=== PATIENT | male | born 1985 | race Two or more races ===

== ENCOUNTER 2024-03-28 19:13 | Emergency (ER) | payer MEDICAID, SELFPAY ==
[2024-03-28 19:19] VITALS: PULSE 90; RESP 18; O2SAT 99; BMI 21.9
--- NOTE | 2024-03-28 19:48 | XR_ITS ---
Examination: CT brain head without contrast. 2-D sagittal coronal reconstructions Date and time of exam:March 28, 2024 1958 hrs. Indications: Ground-level fall today with injury to the head, head pain CTDI: vol (mGy):48.2 DLP: (mGycm):943 Technique: Multiple CT axial sections of the brain have been obtained, 5 mm slice thickness. Contrast has not been administered. 2-D sagittal, coronal reconstructions have been obtained Low dose protocols were performed. One or more of the following dose reduction techniques were used; automated exposure control, adjustment of the mA and/or KV according to patient size, use of iterative reconstruction technique. Findings: No significant ventricular enlargement. Intra-axial or extra-axial hemorrhage density is not seen. No mass effect or midline shift Basal cisterns are not remarkable. Fourth ventricle is midline. Cranial vault intact. Impression: Negative for acute hemorrhage, mass effect or midline shift
--- NOTE | 2024-03-28 19:48 | XR_ITS ---
Examination: CT maxillofacial, without intravenous contrast. 2-D sagittal reconstructions. 3-D reconstructions. Date and time of exam:March 28, 20242000 hrs. Indications: Seizure today, ground-level fall with injury to the face, facial pain CTDI: vol (mGy):18.2 DLP: (mGycm):421 Technique: Multiple axial images of maxillofacial region, 3.0 mm slice thickness. 2-D sagittal and coronal reconstructions. 3-D reconstructions. Low dose protocols were performed. One or more of the following dose reduction techniques were used; automated exposure control, adjustment of the mA and/or KV according to patient size, use of iterative reconstruction technique. Findings: Frontal bone intact Orbital rims intact No nasal bone fracture No depression zygomatic arches Maxilla intact Acute fracture anterior right body the mandible axial image 39 Mandibular condyles are intact Impression: Acute fracture anterior right body of the mandible without significant displacement.
--- NOTE | 2024-03-28 19:48 | XR_ITS ---
Examination: CT cervical spine without contrast 2-D sagittal reconstructions 2-D coronal reconstructions 3-D reconstructions. Exam date and time:March 28, 20242007 hrs. Indications: Seizure today, patient fell with injury to the neck, neck pain CTDI:vol (mGy) 12.26 DLP: (mGycm) 326 Technique: Multiple 2 mm axial sections of the cervical spine have been obtained. The coronal and sagittal reconstructions have been obtained. 3-D reconstructions have been obtained. Low dose protocols were performed. One or more of the following dose reduction techniques were used; automated exposure control, adjustment of the mA and/or KV according to patient size, use of iterative reconstruction technique. Findings: Axial sections demonstrate intact base of the skull. C1 exhibit satisfactory relationship to the odontoid. No acute cervical vertebral body fracture seen. Alignment posterior spinous processes satisfactory. Impression: No acute cervical fracture.
[2024-03-28 19:53] VITALS: BP 120/86; PULSE 88; RESP 18; TEMP 36.9; O2SAT 99
--- NOTE | 2024-03-28 21:45 | PC.NURSE ---
pt was seen walking out of the main ed doors.
--- NOTE | 2024-03-28 21:47 | PC.NURSE ---
pt was seen walking out the main ed doors
--- NOTE | 2024-03-28 22:15 | PC.NURSE ---
no answer at er lobby or outside er to be re evaluated.
--- NOTE | 2024-03-29 01:35 | PD.EDADDENDU ---
Emergency Room Addendum Addendum Narrative: This section includes all my notes and documentations, including HPI, PE, and ED course. Boston Lara MD HPI: 38-year-old male here to be evaluated after falling yesterday. Landed on his head. Reports passing out. Was told he had seizure. Currently, he reports no headache or dizziness. No neck pain or back pain. No chest pain or abdominal pain. No pain in the arms or legs. No other complaints. ROS: Musculoskeletal: negative except as documented in HPI. Skin: negative except as documented in HPI. Neurological: negative except as documented in HPI. Physical Exam: General: Alert and oriented. No acute distress. Eyes: Conjunctivae and lids clear. EOMI. PERRL. ENT: No nasal congestion. Neck: Supple. No tenderness. Heart: RRR. Lungs: No respiratory distress. Good air movement. No rhonchi, wheezing, rales. Chest: No tenderness. Abdomen: Soft and nontender. Back: No tenderness. Skin: Warm and dry. On his left forehead, there is a 1 cm linear skin abrasion. Neuro: Alert and oriented X 3. Cranial Nerves II-XII grossly intact. No peripheral motor deficits. Musculoskeletal: All major joints and bones are not tender with no limited ROM. I ordered head and facial and cervical spine CT scans. Later, I was told he eloped. Boston Lara MD
== END 2024-03-28 22:17 | disposition left against medical advice (07) ==
PROVIDERS: Emergency Provider Emergency Medicine; PCP Family Medicine
DX: S00.81XA Abrasion of other part of head, initial encounter (principal); S09.90XA Unspecified injury of head, initial encounter; S19.9XXA Unspecified injury of neck, initial encounter; W18.30XA Fall on same level, unspecified, initial encounter; Z53.29 Procedure and treatment not carried out because of patient's decision for other reasons
CPT/HCPCS: 70450; 70486; 72125; 99281

== ENCOUNTER 2024-04-30 19:52 | Emergency (ER) | payer MEDICAID, SELFPAY ==
[2024-04-30 19:52] VITALS: BMI 20.3
[2024-04-30 20:38] VITALS: BP 160/97; PULSE 88; RESP 18; TEMP 36.7; O2SAT 100
--- NOTE | 2024-04-30 21:31 | XR_ITS ---
Examination: CT abdomen and pelvis without contrast. Coronal 3-D reconstructions. Sagittal 2-D reconstructions. Date and time of exam:April 30, 2024 2134 hrs. Comparison February 19, 2024 Indications: Lower abdominal pain beginning today 12 hours ago CTDI: vol (mGy): 4.89 DLP: (mGycm): 233 Technique: Axial images of the abdomen have been obtained, 3 mm slice thickness Intravenous contrast material has not been administered. Low dose protocols were performed. One or more of the following dose reduction techniques were used; automated exposure control, adjustment of the mA and/or KV according to patient size, use of iterative reconstruction technique. Findings: No focal liver or splenic lesions No gallstones No pancreatic or adrenal mass No renal or ureteral calculi, no hydronephrosis Aorta normal size No bowel obstruction Normal appendix No diverticulitis Urinary bladder wall thickening up to 11 mm No prostatomegaly Impression: No renal or ureteral calculi, no hydronephrosis Normal appendix No bowel obstruction diverticulitis or free air. Mild urinary bladder wall thickening, consider cystitis
--- NOTE | 2024-04-30 21:32 | EDRME_ITS ---
Rapid Medical Screening Exam [facility] Arrival date/time: 04/30/24 19:52 38M with history of psych/drug use presents to ED with lower ab/pelvic pain and lower leg muscle cramping. Chief Complaint: General Adult/Misc Complain Vital signs: Vital Signs Temperature 98.1 F 04/30/24 20:38 Pulse Rate 88 04/30/24 20:38 Respiratory Rate 18 04/30/24 20:38 Blood Pressure 160/97 H 04/30/24 20:38 Pulse Oximetry (%) 100 04/30/24 20:38 Oxygen Delivery Method Room Air 04/30/24 20:38
[2024-04-30 21:49] LABS: Collection Type, Urine Clean Catch; RBC,Urine 0 /hpf (0-3); Squamous Epithelial Cell,Urine 0 /hpf (0-5)
[2024-04-30 21:59] LABS: Bilirubin,Urine Negative (Negative); Blood,Urine Negative (Negative); Clarity,Urine Clear (Clear/Hazy); Color,Urine Lt-Yellow (Lt Yel-Yel); Culture Indicated,Urine Not Indicated; Glucose, Urine Negative (Negative); Ketones,Urine Negative (Negative); Leukocyte Esterase,Urine Negative (Negative); Nitrite,Urine Negative (Negative); Protein,Urine Negative (Neg - Trace); Specific Gravity,Urine 1.008 (1.001-1.035); Urobilinogen,Urine Negative mg/dL (0.0-1.0); WBC,Urine 2 /hpf (0-5)
[2024-04-30 23:04] LABS: Alanine Aminotransferase 11 U/L (10-49); Albumin/Globulin Ratio 1.9 (1.2-2.2); Alkaline Phosphatase 88 U/L (46-116); Anion Gap 8 (7-16); Aspartate Amino Transferase 22 U/L (0-34); BUN/Creatinine Ratio 10 Ratio (12-20); Bilirubin,Total 0.7 mg/dL (0.3-1.2); Blood Urea Nitrogen 14 mg/dL (9-23); Calcium 10.6 mg/dL (8.3-10.6); Calcium (Corrected) 10.6 mg/dL (8.5-10.1); Carbon Dioxide 28.6 mMol/L (20.0-31.0); Chloride 100 mMol/L (98-107); Creatinine (Component) 1.4 mg/dL (0.6-1.3); Estimated Creatinine Clearance 60.8 mL/min (>60); Globulin 2.7 gm/dL (2.3-3.5); Glucose 50 mg/dL (74-106); Magnesium 2.4 mg/dL (1.6-2.6); Osmolality,Calculated 271 (275-295); Potassium 4.2 mMol/L (3.4-5.1); Sodium 137 mMol/L (136-145); Total Protein 7.7 gm/dL (5.7-8.2); eGFR > 60 See Note
[2024-04-30 23:06] LABS: Basophils % (Auto) 0 % (0-2.5); Eosinophils # (Auto) 0.1 Thou/mm3 (0.0-0.5); Eosinophils % (Auto) 1 % (0-10); Hematocrit 44.5 % (41.0-53.0); Hemoglobin 15.4 g/dL (13.5-16.0); Immature Granulocytes % (Auto) 0 % (0-0); Immature Granulocytes Auto 0.03 Thou/mm3 (0.00-0.00); Lymphocytes # (Auto) 2.8 Thou/mm3 (1.0-4.8); Lymphocytes % (Auto) 23 % (10-50); Mean Corpuscular HGB Conc 34.6 g/dl (31.0-37.0); Mean Corpuscular Hemoglobin 30.9 pg (25.0-35.0); Mean Corpuscular Volume 89 fL (80-100); Monocytes # (Auto) 1.2 Thou/mm3 (0.0-0.8); Monocytes % (Auto) 10 % (0-12); Neutrophils % (Auto) 66 % (37-80); Nucleated Red Blood Cell % 0 /100 WBC (0); Platelet Count 356 Thou/mm3 (140-440); RDW Standard Deviation 41.4 fL (35.1-43.9); Red Blood Count 4.98 Miln/mm3 (4.50-5.90); White Blood Count 12.2 Thou/mm3 (3.8-10.6)
--- NOTE | 2024-04-30 23:17 | PC.NURSE ---
juice and sandwhich provided to brittni for blood sugar of 50. pt asymptomatic and has no complaints
--- NOTE | 2024-05-01 02:33 | PD.EDADULT ---
ED General RME/HPI General Chief complaint: General Adult/Misc Complain Stated complaint: ABD PAIN,LEG CRAMPING Arrival date/time: 04/30/24 19:52 RME / HPI RME / HPI narrative: 04/30/24 19:52 38M with history of psych/drug use presents to ED with lower ab/pelvic pain and lower leg muscle cramping. ----- Dr. Portillo?s Main ED Evaluation: 38yo male presents to the ED for complaints of lower abdominal pain and BLE cramping x yesterday morning. Patient states he started having lower abdominal pain, lower back pain, and BLE cramping yesterday while he was at work. He states his pain worsens when he walks. Patient denies any dysuria, penile discharge or any other associated symptoms. Patient is not sexually active. No known allergies. PCP: [facility] Related Data Previous Rx's ?Medication ?Instructions ?Recorded cetirizine 5 mg-pseudoephedrine ER 1 tab PO BID PRN sinus symptoms 08/30/21 120 mg tablet,extended #14 tabs release,12hr (Zyrtec-D) diphenhydramine HCl 25 mg capsule 25 mg PO Q8H PRN allergic symptoms 09/23/22 (Benadryl) #30 caps ibuprofen 600 mg tablet 600 mg PO QID PRN pain #20 tabs 09/23/22 ciprofloxacin HCl 500 mg tablet 500 mg PO BID #14 tabs 11/29/22 (Cipro) dicyclomine 20 mg tablet 20 mg PO BID #20 tabs 11/29/22 metronidazole 500 mg tablet 500 mg PO BID #14 tabs 11/29/22 cyclobenzaprine 7.5 mg tablet 7.5 mg PO TID PRN muscle spasm #30 12/03/22 tabs hydrocodone 5 mg-acetaminophen 325 1 tab PO BID PRN pain #14 tabs 01/16/23 mg tablet hydroxyzine HCl 50 mg tablet 50 mg PO Q6H PRN anxiety #20 tabs 01/18/24 amoxicillin 875 mg-potassium 1 tab PO BID #14 tabs 02/07/24 clavulanate 125 mg tablet acetaminophen 325 mg tablet 650 mg (2 x 325 mg) PO TID PRN 02/11/24 pain #30 tabs ibuprofen 600 mg tablet 600 mg PO Q8H PRN pain #30 tabs 02/11/24 ibuprofen 600 mg tablet 600 mg PO Q8H PRN pain #14 tabs 02/15/24 lidocaine 5 % topical patch 2 patch topical QDAY PRN pain #30 02/15/24 (Lidoderm) ea Allergies Allergy/AdvReac Type Severity Reaction Status Date / Time No Known Allergies Allergy Verified 04/30/24 19:54 Review of Systems Review of Systems Systems Reviewed: All systems reviewed, normal except as documented Narrative Review of Systems: Gen: No fever, no chills, no weight loss EYES: No discharge, no visual changes, no pain HEENT: No ear pain, no congestion, no sore throat PULM: No shortness of breath, no cough, no congestion CV: No chest pain, no dyspnea on exertion, no palpitations GI: No nausea, no vomiting, no diarrhea, + pain, no constipation : No frequency, no urgency, no dysuria Musc/skel: No joint pain, + back pain, + BLE pain Skin: No rash. Warm and dry. Psyc: No hallucinations, no depression Heme/Lymph: No easy bleeding or bruising tendencies Neuro: No weakness, no headache Past Medical History Past Medical History NEUROLOGIC: Negative Neurological Disorders or Seizures CARDIAC: Negative Cardiac Disorders or Congestive Heart Failure RESPIRATORY: Negative Chronic Obstructive Pulmonary Disease (COPD) or Asthma GASTROINTESTINAL: Negative Gastrointestinal Disorders GENITOURINARY: Positive Genitourinary Disorders; Negative Renal Disease MUSCULOSKELETAL: Negative Musculoskeletal Disorders ENDOCRINE: Negative Endocrine Disorders, Diabetes Mellitus Type 1 or Diabetes Mellitus Type 2 HEMATOLOGIC: Negative Blood Disorders or Sickle Cell Disease OTHER HISTORY: Positive Chicken Pox; Negative Hospitalization, Blood Transfusions, Blood Transfusion Reaction, Anesthesia Reactions or Cancer Social History SMOKING STATUS: Current some day smoker SUBSTANCE USE: methamphetamine ED Exam Narrative Physical exam: GENERAL APPEARANCE: alert and oriented x 4, well-developed, well-nourished, no acute distress VITALS: All vitals were reviewed and the pulse ox is 100% on room air, which is normal according to my interpretation. HEENT: normocephalic, atraumatic NECK: supple LUNGS: no respiratory distress, normal effort HEART: good peripheral perfusion ABDOMEN: non distended EXTREMITIES: atraumatic NEUROLOGIC: awake; alert and oriented x4; cranial nerves II-XII grossly intact PSYCHIATRIC: appropriate mood and affect SKIN: warm, dry, normal color; no rashes Course Quality Measures none Orders Category Date Time Status Fingerstick [Bedside Blood Glucose] NOW Care 04/30/24 23:[address] abdomen pelvis wo con Stat Exams 04/30/24 21:31 Completed CBC Stat Lab 04/30/24 21:43 Completed CMP [Comprehensive Metabolic Panel] Stat Lab 04/30/24 21:43 Completed Mag [Magnesium] Stat Lab 04/30/24 21:43 Completed Urinalysis, C/S if Indicated Stat Lab 04/30/24 21:44 Completed Acetaminophen Tab [Tylenol ES Tab] Med 05/01/24 02:36 Discontinued 1,000 mg PO X1 ONE Ibuprofen Tab [Motrin Tab] Med 05/01/24 02:36 Discontinued 600 mg PO X1 ONE Vital Signs Vital signs: Vital Signs Temperature 98.1 F 04/30/24 20:38 Pulse Rate 88 04/30/24 20:38 Respiratory Rate 18 04/30/24 20:38 Blood Pressure 160/97 H 04/30/24 20:38 Pulse Oximetry (%) 100 04/30/24 20:38 Oxygen Delivery Method Room Air 04/30/24 20:38 [facility] Patient data External records reviewed:: [facility] previous records (Per chart review, patient was seen here on 03/29/24 for syncope.) Clinical information provided by:: patient Social determinants that could affect healthcare access:: none Patient has the following chronic illnesses:: none How is presenting disease/condition affected by chronic disease/condition?: no chronic disease Evaluation data The following diagnostics were reviewed and interpreted by me:: lab results and radiology exam(s) Lab and/or radiology exams considered but not ordered:: none Interpretation Summary: WBC count is elevated at 12.2, Initial Glucose is 50, UA is unremarkable, according to my interpretation. ----- [place] [facility] Report Signed Patient: DAIANA MEDINA [facility]. Record#: [id number] Birthdate: 1985 Age/Sex: 38 / M Location: [facility] Attending Dr: Ordering Physician: Tim Espinoza PA-C Date of Service: 04/30/24 Procedure(s): CT abdomen pelvis wo con Accession Number(s): [id number] cc: Michael Rudolph MD; Shad Burt MD; Espinoza,Tim PA-C~ Examination: CT abdomen and pelvis without contrast. Coronal 3-D reconstructions. Sagittal 2-D reconstructions. Date and time of exam:April 30, 2024 2134 hrs. Comparison February 19, 2024 Indications: Lower abdominal pain beginning today 12 hours ago CTDI: vol (mGy): 4.89 DLP: (mGycm): 233 Technique: Axial images of the abdomen have been obtained, 3 mm slice thickness Intravenous contrast material has not been administered. Low dose protocols were performed. One or more of the following dose reduction techniques were used; automated exposure control, adjustment of the mA and/or KV according to patient size, use of iterative reconstruction technique. Findings: No focal liver or splenic lesions No gallstones No pancreatic or adrenal mass No renal or ureteral calculi, no hydronephrosis Aorta normal size No bowel obstruction Normal appendix No diverticulitis Urinary bladder wall thickening up to 11 mm No prostatomegaly Impression: No renal or ureteral calculi, no hydronephrosis Normal appendix No bowel obstruction diverticulitis or free air. Mild urinary bladder wall thickening, consider cystitis Dictated By: Shad Burt MD Signed By: <Electronically signed by Shad Burt MD in [place]> 04/30/24 2249 Medications Medications considered but not ordered:: none Medication administrations:: Medication Administration History Discontinued Medications Acetaminophen (Acetaminophen 500 Mg Tablet) 1,000 mg PO X1 ONE Stop: 05/01/24 02:37 Last Admin: 05/01/24 02:45 Dose: 1,000 mg Documented By: CVL Ibuprofen (Ibuprofen Tab 600 Mg Tablet) 600 mg PO X1 ONE Stop: 05/01/24 02:37 Last Admin: 05/01/24 02:45 Dose: 600 mg Documented By: CVL see above Consultations Consultation(s) initiated? (list below): No Diagnosis Differential Diagnosis ED Complaint MDM: cramps, dehydration, electrolyte abnormality, myalgias Most likely diagnosis given after review of the tests above:: see below Admission Indicated Admission indicated?: not indicated Explain why admission is indicated or not indicated:: Admission criteria not met. Admission Request Was there a request for admission?: No Disposition Plan Disposition Plan: Discharge Discharge Attestation Discharge Attestation: The patient and all family members were given an opportunity to ask questions and understood the discharge instructions. Discharge instructions specifically effects, indications for sooner follow up or return to the emergency department, and the expected course of current diagnosis. Patient condition: Stable Medical Decision Making MDM Narrative MDM Narrative: Scribe Attestation: 05/01/24 Tyra Segovia am scribing for and in the presence of Dr. Portillo. Differential Diagnosis Differential Diagnosis: cramps, dehydration, electrolyte abnormality, myalgias Lab Data 04/30/24 21:43 04/30/24 21:43 Labs: Lab Results 04/30/24 04/30/24 Range/Units 21:43 21:44 WBC 12.2 H (3.8-10.6) Thou/mm3 RBC 4.98 (4.50-5.90) Miln/mm3 Hgb 15.4 (13.5-16.0) g/dL Hct 44.5 (41.0-53.0) % MCV 89 (80-100) fL MCH 30.9 (25.0-35.0) pg MCHC 34.6 (31.0-37.0) g/dl RDW Std Deviation 41.4 (35.1-43.9) fL Plt Count 356 (140-440) Thou/mm3 Neut % (Auto) 66 (37-80) % Lymph % (Auto) 23 (10-50) % [place] % (Auto) 10 (0-12) % Eos % (Auto) 1 (0-10) % Baso % (Auto) 0 (0-2.5) % Neut # (Auto) 8.0 H (1.8-7.7) Thou/mm3 Lymph # (Auto) 2.8 (1.0-4.8) Thou/mm3 [place] # (Auto) 1.2 H (0.0-0.8) Thou/mm3 Eos # (Auto) 0.1 (0.0-0.5) Thou/mm3 Baso # (Auto) 0.0 (0.0-0.2) Thou/mm3 Immature Gran # (Auto) 0.03 H (0.00-0.00) Thou/mm3 Absolute Nucleated RBC 0.00 (0.00-0.00) Thou/mm3 Immature Gran % 0 (0-0) % Nucleated RBC % 0 (0) /100 WBC Sodium 137 (136-145) mMol/L Potassium 4.2 (3.4-5.1) mMol/L Chloride 100 (98-107) mMol/L Carbon Dioxide 28.6 (20.0-31.0) mMol/L Anion Gap 8 (7-16) BUN 14 (9-23) mg/dL Creatinine 1.4 H (0.6-1.3) mg/dL Estim Creat Clear Calc 60.8 L (>60) mL/min eGFR > 60 (60 - ) See Note BUN/Creatinine Ratio 10 L (12-20) Ratio Glucose 50 L (74-106) mg/dL Calculated Osmolality 271 L (275-295) Calcium 10.6 (8.3-10.6) mg/dL Corrected Calcium 10.6 H (8.5-10.1) mg/dL Magnesium 2.4 (1.6-2.6) mg/dL Total Bilirubin 0.7 (0.3-1.2) mg/dL AST 22 (0-34) U/L ALT 11 (10-49) U/L Alkaline Phosphatase 88 (46-116) U/L Total Protein 7.7 (5.7-8.2) gm/dL Albumin 5.0 (3.5-5.0) gm/dL Globulin 2.7 (2.3-3.5) gm/dL Albumin/Globulin Ratio 1.9 (1.2-2.2) Ur Collection Type Clean Catch Urine Color Lt-Yellow (Lt Yel-Yel) Urine Clarity Clear (Clear/Hazy) Urine pH 6.0 (5.0-7.0) Ur Specific [place] 1.008 (1.001-1.035) Urine Protein Negative (Neg - Trace) Urine Glucose (UA) Negative (Negative) Urine Ketones Negative (Negative) Urine Blood Negative (Negative) Urine Nitrite Negative (Negative) Urine Bilirubin Negative (Negative) Urine Urobilinogen (Auto) Negative (0.0-1.0) mg/dL Ur Leukocyte Esterase Negative (Negative) Urine RBC 0 (0-3) /hpf Urine WBC 2 (0-5) /hpf Ur Squamous Epith Cells 0 (0-5) /hpf Urine Bacteria None (None) Ur Culture Indicated? Not Indicated Discharge Plan Plan Patient Disposition: HOME (Self Care) Disposition Comment: Stable for discharge Patient condition on transfer: Stable Prescriptions/Referrals Prescriptions/Med Rec: No Action cetirizine-pseudoephedrine [Zyrtec-D] 5-120 mg tablet extended release 12 hr 1 tab PO BID PRN (Reason: sinus symptoms) Qty: 14 0RF diphenhydramine HCl [Benadryl] 25 mg capsule 25 mg PO Q8H PRN (Reason: allergic symptoms) Qty: 30 0RF ibuprofen 600 mg tablet 600 mg PO QID PRN (Reason: pain) Qty: 20 0RF ciprofloxacin HCl [Cipro] 500 mg tablet 500 mg PO BID Qty: 14 0RF metronidazole 500 mg tablet 500 mg PO BID Qty: 14 0RF dicyclomine 20 mg tablet 20 mg PO BID Qty: 20 0RF hydroxyzine HCl 50 mg tablet 50 mg PO Q6H PRN (Reason: anxiety) Qty: 20 0RF amoxicillin-pot clavulanate 875-125 mg tablet 1 tab PO BID Qty: 14 0RF ibuprofen 600 mg tablet 600 mg PO Q8H PRN (Reason: pain) Qty: 30 0RF acetaminophen 325 mg tablet 650 mg PO TID PRN (Reason: pain) Qty: 30 0RF lidocaine [Lidoderm] 5 % adhesive patch,medicated 2 patch topical QDAY PRN (Reason: pain) Qty: 30 0RF Rx Instructions: leave on most painful area for up to 12 hrs ibuprofen 600 mg tablet 600 mg PO Q8H PRN (Reason: pain) Qty: 14 0RF cyclobenzaprine 7.5 mg tablet 7.5 mg PO TID PRN (Reason: muscle spasm) Qty: 30 0RF hydrocodone-acetaminophen 5-325 mg tablet 1 tab PO BID MDD 10 PRN (Reason: pain) Qty: 14 0RF Referrals: Michael Rudolph MD [Primary Care Provider] - In 1 week Problem List Clinical Impression: Cramp in muscle Patient/Caregiver Discharge Instructions Discharge Activity: activity as tolerated Education Materials: ED Heat Cramps Additional Instructions: Please return to the emergency department for any worsening or any further medical problems You should follow-up with your primary care doctor within the next several days Print Language: Citizen Of [place] Stand Alone Forms: [employer] Award Info., Patient Portal Info Letter
[2024-05-01] MEDS: IBUPROFEN TAB 600 MG TABLET PO (02:45)
[2024-05-01] MEDS: ACETAMINOPHEN 500 MG TABLET 1000 MG PO (02:45)
[2024-05-01 02:48] VITALS: RESP 18
== END 2024-05-01 02:48 | disposition home or self-care (01) ==
PROVIDERS: Physician Assistant; Emergency Provider Emergency Medicine; PCP Family Medicine
DX: R25.2 Cramp and spasm (principal); N32.89 Other specified disorders of bladder
CPT/HCPCS: 36415; 74176; 80053; 81001; 83735; 85025; 99284; A9270

== ENCOUNTER 2024-09-02 23:04 | Emergency (ER) | payer MEDICAID, SELFPAY ==
[2024-09-02 23:17] VITALS: PULSE 90; BMI 21.6
[2024-09-02 23:25] VITALS: BP 155/93; PULSE 90; RESP 18; TEMP 36.8; O2SAT 99
--- NOTE | 2024-09-02 23:33 | XR_ITS ---
Examination: Thoracic spine 3 views TECHNIQUE: AP, lateral, coned lateral dorsal spine 3 views Exam date and time: September 02, 2024 and 37 hours INDICATIONS: Upper back pain beginning yesterday FINDINGS: Thoracic levoscoliosis 6 degrees which may be positional No thoracic fracture Mild diffuse thoracic disc narrowing IMPRESSION: Mild diffuse thoracic degenerative disc disease
[2024-09-02] MEDS: ACETAMINOPHEN 500 MG TABLET 1000 MG PO (23:43)
--- NOTE | 2024-09-02 23:48 | EDNOTE_ITS ---
ED Back Injury Pain RME/HPI General Chief Complaint: General Adult/Misc Complain Stated Complaint: BURNING BONES Time Seen by Provider: 09/02/24 23:33 Arrival date/time: 09/02/24 23:04 RME / HPI RME / HPI Narrative: DR. WADE MAIN ED EVALUATION: 38 y/o male with Hx of methamphetamine use presents to ED c/o burning back pain and pressure that radiates up to his neck x 2 days. Patient also reports sweats. Patient denies numbness, tingling, rash or any other associated symptoms or aggravating factors. No modifying factors, no radiation, no migration. Related Data Previous Rx's ?Medication ?Instructions ?Recorded cetirizine 5 mg-pseudoephedrine ER 1 tab PO BID PRN si nus symptoms 08/30/21 120 mg tablet,extended #14 tabs release,12hr (Zyrtec-D) diphenhydramine HCl 25 mg capsule 25 mg PO Q8H PRN all ergic symptoms 09/23/22 (Benadryl) #30 caps ibuprofen 600 mg tablet 600 mg PO QID PRN pain #20 t abs 09/23/22 ciprofloxacin HCl 500 mg tablet 500 mg PO BID #14 tabs 11/29/22 (Cipro) dicyclomine 20 mg tablet 20 mg PO BID #20 tabs metronidazole 500 mg tablet 500 mg PO BID #14 tabs cyclobenzaprine 7.5 mg tablet 7.5 mg PO TID PRN muscle spasm #30 12/03/22 tabs hydrocodone 5 mg-acetaminophen 325 1 tab PO BID PRN pa in #14 tabs 01/16/23 mg tablet hydroxyzine HCl 50 mg tablet 50 mg PO Q6H PRN anxiety #20 tabs 01/18/24 amoxicillin 875 mg-potassium 1 tab PO BID #14 tabs 09/25 clavulanate 125 mg tablet acetaminophen 325 mg tablet 650 mg (2 x 325 mg) PO TID PRN 02/11/24 pain #30 tabs ibuprofen 600 mg tablet 600 mg PO Q8H PRN pain #30 t abs 02/11/24 ibuprofen 600 mg tablet 600 mg PO Q8H PRN pain #14 t abs 02/15/24 lidocaine 5 % topical patch 2 patch topical QDAY PRN p ain #30 02/15/24 (Lidoderm) ea Allergies Allergy/AdvReac Type Severity Reaction Status Date / Time No Known Allergies Allergy Verified 09/02/24 23:20 Review of Systems Review of Systems Systems Reviewed: All systems reviewed, normal except as documented Narrative Review of Systems: Gen: No fever, no chills, no weight loss EYES: No discharge, no visual changes, no pain HEENT: No ear pain, no congestion, no sore throat PULM: No shortness of breath, no cough, no congestion CV: No chest pain, no dyspnea on exertion, no palpitations GI: No nausea, no vomiting, no diarrhea, no pain, no constipation : No frequency, no urgency, no dysuria Musc/skel: No joint pain, Positive burning back and neck pain Skin: No rash Psyc: No hallucinations, no depression Heme/Lymph: No easy bleeding or bruising tendencies Neuro: No weakness, no headache, no numbness, no tingling Past Medical History Past Medical History GENITOURINARY: Positive Genitourinary Disorders OTHER HISTORY: Positive Chicken Pox Social History SUBSTANCE USE: methamphetamine ED Exam Narrative Physical exam: GENERAL APPEARANCE: alert and oriented x 4, well-developed, well-nourished, no acute distress VITALS: All vitals were reviewed and the pulse ox is 99% on room air, which is n ormal according to my interpretation. HEENT: Normocephalic, atraumatic; pupils equal, round, reactive to light; EOMI; mucous membranes pink, moist; oropharynx clear NECK: Supple LUNGS: CTABL; no wheezes, no rales, no rhonchi HEART: Regular rate, regular rhythm; normal S1, S2; no murmurs ABDOMEN: non distended; normal BS; soft, no tenderness, no guarding, no rebound; no masses, no organomegaly, no hernia BACK: no CVA tenderness, Positive paraspinal muscle tenderness to upper thoracic area EXTREMITIES: atraumatic; no edema NEUROLOGIC: awake; alert and oriented x4; cranial nerves II-XII grossly intact; no focal sensory or motor deficits PSYCHIATRIC: appropriate mood and affect SKIN: warm, dry, normal color; no rashes Course Course Course Narrative: 2073: Thoracic spine x-ray and Tylenol ordered. Quality Measures none Orders Category Date Time Status XR thoracic spine 3V Stat Exams 09/02/24 23:33 Completed Acetaminophen Tab [Tylenol ES Tab] Med 09/02/24 23:33 Discontinued 1,000 mg PO X1 ONE Vital Signs Vital signs: Vital Signs Temperature 98.3 F 09/02/24 23:25 Pulse Rate 90 09/02/24 23:25 Respiratory Rate 18 09/02/24 23:25 Blood Pressure 155/93 H 09/02/24 23:25 Pulse Oximetry (%) 99 09/02/24 23:25 Oxygen Delivery Method Room Air 09/02/24 23:25 Back Pain / Injury MDM Narrative MDM Narrative:: Scribe Attestation: Deanne Reza, am scribing for and in the presence of Dr. Wade. Provider Notation: Although this document has been carefully reviewed, there may still be some phonetic and other typographical errors. These errors are purely grammatical due to imperfections in the software program and should not be construed in any way to compromise the substance of the patient's medical care during this visit. Patient data External records reviewed:: [facility] previous records ( Prior ED records from 05/01/24 reviewed. Patient was seen for Cramp in muscle.) Clinical information provided by:: patient Social determinants that could affect healthcare access:: substance use (M ethamphetamine) Patient has the following chronic illnesses:: None reported How is presenting disease/condition affected by chronic disease/condition?: no chronic disease (None reported.) Evaluation data The following diagnostics were reviewed and interpreted by me:: radiology exam(s) Lab and/or radiology exams considered but not ordered:: None Interpretation Summary: RADIOLOGY Thoracic Spine X-Ray: Patient: DAIANA MEDINA [facility]. Record#: [id number] Birthdate: 1985 Age/Sex: 38 / M Location: [facility] Attending Dr: Ordering Physician: Meggan Wade MD Date of Service: 09/02/24 Procedure(s): XR thoracic spine 3V Accession Number(s): [id number] cc: Shad Burt MD; Meggan Wade MD~ Examination: Thoracic spine 3 views TECHNIQUE: AP, lateral, coned lateral dorsal spine 3 views Exam date and time: September 02, 2024 and 37 hours INDICATIONS: Upper back pain beginning yesterday FINDINGS: Thoracic levoscoliosis 6 degrees which may be positional No thoracic fracture Mild diffuse thoracic disc narrowing IMPRESSION: Mild diffuse thoracic degenerative disc disease Dictated By: Shad Burt MD Signed By: <Electronically signed by Shad Burt MD in OV> 09/02/24 0662 Medications / Prescriptions Medications or Prescriptions considered but not ordered:: None Medication administrations:: Medication Administration History Discontinued Medications Acetaminophen (Acetaminophen 500 Mg Tablet) 1,000 mg PO X1 ONE Stop: 09/02/24 23:34 Last Admin: 09/02/24 23:43 Dose: 1,000 mg Documented By: KF See above if any. Consultations Consultation(s) initiated? (list below): No Diagnosis Differential diagnosis back pain/injury: thoracic back pain (DJD) and discitis Most likely diagnosis given after review of the tests above:: Thoracic back pain, DJD of thoracic spine. Admission Indicated Admission indicated?: not indicated Admission Request Was there a request for admission?: No Disposition Plan Disposition Plan: Discharge Discharge Attestation Discharge Attestation: The patient and all family members were given an opportunity to ask questions and understood the discharge instructions. Discharge instructions specifically effects, indications for sooner follow up or return to the emergency department, and the expected course of current diagnosis. Patient condition: Stable Discharge Plan Plan Patient Disposition: HOME (Self Care) Prescriptions/Referrals Prescriptions/Med Rec: No Action cetirizine-pseudoephedrine [Zyrtec-D] 5-120 mg tablet extended release 12 hr 1 tab PO BID PRN (Reason: sinus symptoms) Qty: 14 0RF diphenhydramine HCl [Benadryl] 25 mg capsule 25 mg PO Q8H PRN (Reason: allergic symptoms) Qty: 30 0RF ibuprofen 600 mg tablet 600 mg PO QID PRN (Reason: pain) Qty: 20 0RF ciprofloxacin HCl [Cipro] 500 mg tablet 500 mg PO BID Qty: 14 0RF metronidazole 500 mg tablet 500 mg PO BID Qty: 14 0RF dicyclomine 20 mg tablet 20 mg PO BID Qty: 20 0RF hydroxyzine HCl 50 mg tablet 50 mg PO Q6H PRN (Reason: anxiety) Qty: 20 0RF amoxicillin-pot clavulanate 875-125 mg tablet 1 tab PO BID Qty: 14 0RF ibuprofen 600 mg tablet 600 mg PO Q8H PRN (Reason: pain) Qty: 30 0RF acetaminophen 325 mg tablet 650 mg PO TID PRN (Reason: pain) Qty: 30 0RF lidocaine [Lidoderm] 5 % adhesive patch,medicated 2 patch topical QDAY PRN (Reason: pain) Qty: 30 0RF Rx Instructions: leave on most painful area for up to 12 hrs ibuprofen 600 mg tablet 600 mg PO Q8H PRN (Reason: pain) Qty: 14 0RF cyclobenzaprine 7.5 mg tablet 7.5 mg PO TID PRN (Reason: muscle spasm) Qty: 30 0RF hydrocodone-acetaminophen 5-325 mg tablet 1 tab PO BID MDD 10 PRN (Reason: pain) Qty: 14 0RF Problem List Clinical Impression: Thoracic back pain, DJD (degenerative joint disease) of thoracic spine Patient/Caregiver Discharge Instructions Education Materials: ED Back Care Tips Print Language: Thai Stand Alone Forms: Selin Award Info., Patient Portal Info Letter
== END 2024-09-03 01:09 | disposition home or self-care (01) ==
LOC: SERX 09-03 00:30
PROVIDERS: Emergency Provider Emergency Medicine; PCP Family Medicine
DX: M47.814 Spondylosis without myelopathy or radiculopathy, thoracic region (principal)
CPT/HCPCS: 72072; 99283; A9270

== ENCOUNTER 2024-09-03 01:31 | Emergency (ER) | payer MEDICAID, SELFPAY ==
[2024-09-03 01:31] VITALS: BMI 21.6
[2024-09-03] MEDS: KETOROLAC INJ 30 MG/ML VIAL IM (01:46)
[2024-09-03 01:49] VITALS: BP 141/98; PULSE 82; RESP 17; TEMP 36.6; O2SAT 100
--- NOTE | 2024-09-05 05:58 | PD.EDNECK ---
ED Neck Injury Pain RME/HPI General Chief Complaint: General Adult/Misc Complain Stated Complaint: BONES ARE STILL HURTING Time Seen by Provider: 09/03/24 01:32 Arrival date/time: 09/03/24 01:31 RME / HPI RME / HPI Narrative: DR. WADE MAIN ED EVALUATION: 38 y/o male with Hx of methamphetamine use returns to ED c/o continued burning back pain and pressure that radiates up to his neck x 2 days. Patient denies numbness, tingling, rash or any other associated symptoms or aggravating factors. No modifying factors, no radiation, no migration. Related Data Previous Rx's ?Medication ?Instructions ?Recorded cetirizine 5 mg-pseudoephedrine ER 1 tab PO BID PRN sinus symptoms 08/30/21 120 mg tablet,extended #14 tabs release,12hr (Zyrtec-D) diphenhydramine HCl 25 mg capsule 25 mg PO Q8H PRN allergic symptoms 09/23/22 (Benadryl) #30 caps ibuprofen 600 mg tablet 600 mg PO QID PRN pain #20 tabs 09/23/22 ciprofloxacin HCl 500 mg tablet 500 mg PO BID #14 tabs 11/29/22 (Cipro) dicyclomine 20 mg tablet 20 mg PO BID #20 tabs 11/29/22 metronidazole 500 mg tablet 500 mg PO BID #14 tabs 11/29/22 cyclobenzaprine 7.5 mg tablet 7.5 mg PO TID PRN muscle spasm #30 12/03/22 tabs hydrocodone 5 mg-acetaminophen 325 1 tab PO BID PRN pain #14 tabs 01/16/23 mg tablet hydroxyzine HCl 50 mg tablet 50 mg PO Q6H PRN anxiety #20 tabs 01/18/24 amoxicillin 875 mg-potassium 1 tab PO BID #14 tabs 02/07/24 clavulanate 125 mg tablet acetaminophen 325 mg tablet 650 mg (2 x 325 mg) PO TID PRN 02/11/24 pain #30 tabs ibuprofen 600 mg tablet 600 mg PO Q8H PRN pain #30 tabs 02/11/24 ibuprofen 600 mg tablet 600 mg PO Q8H PRN pain #14 tabs 02/15/24 lidocaine 5 % topical patch 2 patch topical QDAY PRN pain #30 02/15/24 (Lidoderm) ea Allergies Allergy/AdvReac Type Severity Reaction Status Date / Time No Known Allergies Allergy Verified 09/02/24 23:20 Review of Systems Review of Systems Systems Reviewed: All systems reviewed, normal except as documented Narrative Review of Systems: Narrative Review of Systems: Gen: No fever, no chills, no weight loss EYES: No discharge, no visual changes, no pain HEENT: No ear pain, no congestion, no sore throat PULM: No shortness of breath, no cough, no congestion CV: No chest pain, no dyspnea on exertion, no palpitations GI: No nausea, no vomiting, no diarrhea, no pain, no constipation : No frequency, no urgency, no dysuria Musc/skel: No joint pain, Positive burning back and neck pain Skin: No rash Psyc: No hallucinations, no depression Heme/Lymph: No easy bleeding or bruising tendencies Neuro: No weakness, no headache, no numbness, no tingling Past Medical History Past Medical History GENITOURINARY: Positive Genitourinary Disorders OTHER HISTORY: Positive Chicken Pox Social History SUBSTANCE USE: methamphetamine ED Exam Narrative Physical exam: GENERAL APPEARANCE:? alert and oriented x 4, well-developed, well-nourished, no acute distress VITALS: All vitals were reviewed and the pulse ox is 99% on room air, which is normal according to my interpretation. HEENT: Normocephalic, atraumatic; pupils equal, round, reactive to light; EOMI; mucous membranes pink, moist; oropharynx clear NECK: Supple LUNGS: CTABL; no wheezes, no rales, no rhonchi HEART: Regular rate, regular rhythm; normal S1, S2; no murmurs ABDOMEN: non distended; normal BS;? soft, no tenderness, no guarding, no rebound; no masses, no organomegaly, no hernia? BACK:? no CVA tenderness, Positive paraspinal muscle tenderness to upper thoracic area EXTREMITIES:? atraumatic; no edema NEUROLOGIC: awake; alert and oriented x4; cranial nerves II-XII grossly intact; no focal sensory or motor deficits PSYCHIATRIC:? appropriate mood and affect SKIN: warm, dry, normal color; no rashes Course Quality Measures none Orders Category Date Time Status Ketorolac Inj [Toradol Inj] Med 09/03/24 01:33 Discontinued 30 mg IM X1 ONE Vital Signs Vital signs: Vital Signs Temperature 98 F 09/03/24 01:49 Pulse Rate 82 09/03/24 01:49 Respiratory Rate 17 09/03/24 01:49 Blood Pressure 141/98 H 09/03/24 01:49 Pulse Oximetry (%) 100 09/03/24 01:49 Oxygen Delivery Method Room Air 09/03/24 01:49 Neck Pain MDM Narrative MDM Narrative:: Scribe Attestation: IDeanne, am scribing for and in the presence of Dr. Wade. Provider Notation: Although this document has been carefully reviewed, there may still be some phonetic and other typographical errors.? These errors are purely grammatical due to imperfections in the software program and should not be construed in any way to? compromise the substance of the patient's medical care during this visit. Patient data External records reviewed:: [facility] previous records (Prior ED records reviewed from 09/02/24. Patient was seen for DJD (degenerative joint disease) of thoracic spine.) Clinical information provided by:: patient Social determinants that could affect healthcare access:: substance use (Methamphetamine) Patient has the following chronic illnesses:: None reported. How is presenting disease/condition affected by chronic disease/condition?: uneffected by Evaluation data The following diagnostics were reviewed and interpreted by me:: other (specify) (None ordered.) Lab and/or radiology exams considered but not ordered:: None. Interpretation Summary: None ordered. Medications / Prescriptions Medications or Prescriptions considered but not ordered:: None. Medication administrations:: Medication Administration History Discontinued Medications Ketorolac Tromethamine (Ketorolac Inj 30 Mg/Ml Vial) 30 mg IM X1 ONE Stop: 09/03/24 01:34 Last Admin: 09/03/24 01:46 Dose: 30 mg Documented By: CB See above if any. Consultations Consultation(s) initiated? (list below): No Diagnosis Neck Differential Diagnosis: cervical radiculopathy, torticollis, strain of neck muscle and other (Dorsalgia vs DJD of thoracic spine) Most likely diagnosis given after review of the tests above:: DJD of thoracic spine Admission Indicated Admission indicated?: not indicated Explain why admission is indicated or not indicated:: Does not meet admission criteria. Admission Request Was there a request for admission?: No Disposition Plan Disposition Plan: Discharge Discharge Attestation Discharge Attestation: The patient and all family members were given an opportunity to ask questions and understood the discharge instructions. Discharge instructions specifically effects, indications for sooner follow up or return to the emergency department, and the expected course of current diagnosis. Patient condition: Stable Discharge Plan Plan Patient Disposition: HOME (Self Care) Prescriptions/Referrals Prescriptions/Med Rec: No Action cetirizine-pseudoephedrine [Zyrtec-D] 5-120 mg tablet extended release 12 hr 1 tab PO BID PRN (Reason: sinus symptoms) Qty: 14 0RF diphenhydramine HCl [Benadryl] 25 mg capsule 25 mg PO Q8H PRN (Reason: allergic symptoms) Qty: 30 0RF ibuprofen 600 mg tablet 600 mg PO QID PRN (Reason: pain) Qty: 20 0RF ciprofloxacin HCl [Cipro] 500 mg tablet 500 mg PO BID Qty: 14 0RF metronidazole 500 mg tablet 500 mg PO BID Qty: 14 0RF dicyclomine 20 mg tablet 20 mg PO BID Qty: 20 0RF hydroxyzine HCl 50 mg tablet 50 mg PO Q6H PRN (Reason: anxiety) Qty: 20 0RF amoxicillin-pot clavulanate 875-125 mg tablet 1 tab PO BID Qty: 14 0RF ibuprofen 600 mg tablet 600 mg PO Q8H PRN (Reason: pain) Qty: 30 0RF acetaminophen 325 mg tablet 650 mg PO TID PRN (Reason: pain) Qty: 30 0RF lidocaine [Lidoderm] 5 % adhesive patch,medicated 2 patch topical QDAY PRN (Reason: pain) Qty: 30 0RF Rx Instructions: leave on most painful area for up to 12 hrs ibuprofen 600 mg tablet 600 mg PO Q8H PRN (Reason: pain) Qty: 14 0RF cyclobenzaprine 7.5 mg tablet 7.5 mg PO TID PRN (Reason: muscle spasm) Qty: 30 0RF hydrocodone-acetaminophen 5-325 mg tablet 1 tab PO BID MDD 10 PRN (Reason: pain) Qty: 14 0RF Referrals: Temporary Provider,ED [Physician] - In 1 week Problem List Clinical Impression: DJD (degenerative joint disease) of thoracic spine Patient/Caregiver Discharge Instructions Education Materials: ED Degenerative Disk Disease Print Language: Malay Stand Alone Forms: Selin Award Info., Patient Portal Info Letter
== END 2024-09-03 01:50 | disposition home or self-care (01) ==
LOC: SERX 02:22
PROVIDERS: Emergency Provider Emergency Medicine; PCP Family Medicine
DX: M47.814 Spondylosis without myelopathy or radiculopathy, thoracic region (principal)
CPT/HCPCS: 96372; 99283; J1885

== ENCOUNTER 2024-09-15 20:13 | Emergency (ER) | payer MEDICAID, SELFPAY ==
[2024-09-15 20:26] VITALS: PULSE 124; O2SAT 99
[2024-09-15 20:29] VITALS: BMI 21.4
[2024-09-15 20:49] VITALS: BP 137/86; PULSE 110; RESP 18; TEMP 37.1; O2SAT 100
--- NOTE | 2024-09-15 20:59 | PD.EDHA ---
ED Headache RME/HPI General Chief Complaint: [facility] Compl[facility] Stated Complaint: FACIAL NUMBNESS Time Seen by Provider: 09/15/24 20:42 Arrival date/time: 09/15/24 20:13 RME / HPI RME / HPI Narrative: The patient is a 38-year-old male with significant past medical history of methamphetamine abuse disorder, but patient denies methamphetamine use presented to ED with chief complaint of bandlike headache for 2 hours. Reported that he has been is burning in character associated with muscle cramping of the forehead. He denied any dizziness, sore throat, chest pain, SOB, abdominal pain, any changes in bowel or bladder habit, nausea or vomiting, fever or chills, or any leg swelling. Related Data Previous Rx's ?Medication ?Instructions ?Recorded cetirizine 5 mg-pseudoephedrine ER 1 tab PO BID PRN sinus symptoms 08/30/21 120 mg tablet,extended #14 tabs release,12hr (Zyrtec-D) diphenhydramine HCl 25 mg capsule 25 mg PO Q8H PRN allergic symptoms 09/23/22 (Benadryl) #30 caps ibuprofen 600 mg tablet 600 mg PO QID PRN pain #20 tabs 09/23/22 ciprofloxacin HCl 500 mg tablet 500 mg PO BID #14 tabs 11/29/22 (Cipro) dicyclomine 20 mg tablet 20 mg PO BID #20 tabs 11/29/22 metronidazole 500 mg tablet 500 mg PO BID #14 tabs 11/29/22 cyclobenzaprine 7.5 mg tablet 7.5 mg PO TID PRN muscle spasm #30 12/03/22 tabs hydrocodone 5 mg-acetaminophen 325 1 tab PO BID PRN pain #14 tabs 01/16/23 mg tablet hydroxyzine HCl 50 mg tablet 50 mg PO Q6H PRN anxiety #20 tabs 01/18/24 amoxicillin 875 mg-potassium 1 tab PO BID #14 tabs 02/07/24 clavulanate 125 mg tablet acetaminophen 325 mg tablet 650 mg (2 x 325 mg) PO TID PRN 02/11/24 pain #30 tabs ibuprofen 600 mg tablet 600 mg PO Q8H PRN pain #30 tabs 02/11/24 ibuprofen 600 mg tablet 600 mg PO Q8H PRN pain #14 tabs 02/15/24 lidocaine 5 % topical patch 2 patch topical QDAY PRN pain #30 02/15/24 (Lidoderm) ea acetaminophen 500 mg tablet 500 mg PO Q6H PRN pain #30 tabs 09/15/24 tizanidine 4 mg tablet 4 mg PO BID PRN muscle spasticity 09/15/24 #20 tabs Allergies Allergy/AdvReac Type Severity Reaction Status Date / Time No Known Allergies Allergy Verified 09/02/24 23:20 Review of Systems Review of Systems Systems Reviewed: All systems reviewed, normal except as documented Past Medical History Past Medical History GENITOURINARY: Positive Genitourinary Disorders OTHER HISTORY: Positive Chicken Pox Social History SUBSTANCE USE: methamphetamine ED Exam Narrative Physical exam: General: No acute distress, Alert and Oriented x 3 HEENT: [place] muscle over forehead, dry mucous membranes, oropharynx clear Neck: Supple, No masses, No JVD CVS: S1S2 Regular rate and rhythm, No murmurs, rubs or gallops Lungs: Clear to auscultation with no accessory use, no wheeze no rhonchi Abd: Soft, NT/ND, +BS, no organomegaly Ext: No edema, warm and well perfused Skin: No rash Psych: Appropriate mood and affect Course Quality Measures none Orders Category Date Time Status CBC Stat Lab 09/15/24 21:08 Completed CMP [Comprehensive Metabolic Panel] Stat Lab 09/15/24 21:08 Completed Drug Screen,Urine Stat Lab 09/15/24 21:30 Completed ESR [Sed Rate (ESR)] Stat Lab 09/15/24 21:08 Completed TSH [Thyroid Stimulating Hormone] Stat Lab 09/15/24 21:08 Completed tiZANidine HCL [Zanaflex] Med 09/15/24 20:58 Discontinued 4 mg PO X1 ONE Vital Signs Vital signs: Vital Signs Temperature 98.7 F 09/15/24 20:49 Pulse Rate 110 H 09/15/24 20:49 Respiratory Rate 18 09/15/24 20:49 Blood Pressure 137/86 H 09/15/24 20:49 Pulse Oximetry (%) 100 09/15/24 20:49 Oxygen Delivery Method Room Air 09/15/24 20:49 Headache MDM Narrative MDM Narrative:: The patient is a 38-year-old male with significant past medical history of methamphetamine abuse disorder, but patient denies methamphetamine use presented to ED with chief complaint of bandlike headache for 2 hours. Reported that he has been is burning in character associated with muscle cramping of the forehead. He denied any dizziness, sore throat, chest pain, SOB, abdominal pain, any changes in bowel or bladder habit, nausea or vomiting, fever or chills, or any leg swelling. His vitals revealed BP 137/86, 110, RR 18, temperature 98.7, saturating 100% on room air. Labs revealed hemoglobin of 17.2 likely secondary to dehydration, chemistry panel revealed sodium 131, blood sugar 112, calculated osmolality 265, TSH 0.91 and U tox was positive for methamphetamine. The patient was given tizanidine 4 mg p.o. x 1, followed by He[place]rick 5 Mg p.o. x 1 and IV normal saline bolus 1 L. The patient reported improvement in his symptoms. The patient was plan to discharge home. Patient data External records reviewed:: [facility] previous records Clinical information provided by:: patient Social determinants that could affect healthcare access:: substance use Patient has the following chronic illnesses:: See above How is presenting disease/condition affected by chronic disease/condition?: caused by Evaluation data The following diagnostics were reviewed and interpreted by me:: lab results Lab and/or radiology exams considered but not ordered:: CT head, because it was more likely muscle spasm 2/2 methamphetamine abuse disorder Interpretation Summary: See above Medications / Prescriptions Medications or Prescriptions considered but not ordered:: None Medication administrations:: Medication Administration History Discontinued Medications Tizanidine HCl (Tizanidine Hcl 2 Mg Tablet) 4 mg PO X1 ONE Stop: 09/15/24 20:59 Last Admin: 09/15/24 22:32 Dose: 4 mg Documented By: CVL See above Consultations Consultation(s) initiated? (list below): No Diagnosis Differential diagnosis headache: migraine, tension headache and other (Muscle spasm headache) Most likely diagnosis given after review of the tests above:: Muscle spasm headache Admission Indicated Admission indicated?: not indicated Admission Request Was there a request for admission?: No Disposition Plan Disposition Plan: Discharge Discharge Attestation Discharge Attestation: The patient and all family members were given an opportunity to ask questions and understood the discharge instructions. Discharge instructions specifically effects, indications for sooner follow up or return to the emergency department, and the expected course of current diagnosis. Patient condition: Stable Discharge Plan Plan Patient Disposition: HOME (Self Care) Prescriptions/Referrals Prescriptions/Med Rec: New tizanidine 4 mg tablet 4 mg PO BID PRN (Reason: muscle spasticity) Qty: 20 0RF acetaminophen 500 mg tablet 500 mg PO Q6H PRN (Reason: pain) Qty: 30 0RF No Action cetirizine-pseudoephedrine [Zyrtec-D] 5-120 mg tablet extended release 12 hr 1 tab PO BID PRN (Reason: sinus symptoms) Qty: 14 0RF diphenhydramine HCl [Benadryl] 25 mg capsule 25 mg PO Q8H PRN (Reason: allergic symptoms) Qty: 30 0RF ibuprofen 600 mg tablet 600 mg PO QID PRN (Reason: pain) Qty: 20 0RF ciprofloxacin HCl [Cipro] 500 mg tablet 500 mg PO BID Qty: 14 0RF metronidazole 500 mg tablet 500 mg PO BID Qty: 14 0RF dicyclomine 20 mg tablet 20 mg PO BID Qty: 20 0RF hydroxyzine HCl 50 mg tablet 50 mg PO Q6H PRN (Reason: anxiety) Qty: 20 0RF amoxicillin-pot clavulanate 875-125 mg tablet 1 tab PO BID Qty: 14 0RF ibuprofen 600 mg tablet 600 mg PO Q8H PRN (Reason: pain) Qty: 30 0RF acetaminophen 325 mg tablet 650 mg PO TID PRN (Reason: pain) Qty: 30 0RF lidocaine [Lidoderm] 5 % adhesive patch,medicated 2 patch topical QDAY PRN (Reason: pain) Qty: 30 0RF Rx Instructions: leave on most painful area for up to 12 hrs ibuprofen 600 mg tablet 600 mg PO Q8H PRN (Reason: pain) Qty: 14 0RF cyclobenzaprine 7.5 mg tablet 7.5 mg PO TID PRN (Reason: muscle spasm) Qty: 30 0RF hydrocodone-acetaminophen 5-325 mg tablet 1 tab PO BID MDD 10 PRN (Reason: pain) Qty: 14 0RF Referrals: Michael Rudolph MD [Primary Care Provider] - In 1 week Problem List Clinical Impression: Methamphetamine abuse, Muscle spasm Patient/Caregiver Discharge Instructions Education Materials: Addiction Ask These Questions, Addiction: Getting Help, Recovering from Addiction, Understanding Methamphetamine ... Additional Instructions: You have been diagnosed with muscle spasm leading to headache. You have been discharged by Dr. Estes with the following recommendations: Please follow-up with your PCP within 1 week of discharge You have been started on: -Tizanidine 4 mg twice daily as needed for muscle spasm headache -Tylenol 500 Mg every 6 hourly as needed for pain Continue taking all other medicines as prescribed -Recommended to return back to emergency department if your symptoms persists or worsens Print Language: Khmer Stand Alone Forms: [facility] Info., Patient Portal Info Letter
[2024-09-15 21:21] LABS: Basophils % (Auto) 0 % (0-2.5); Eosinophils % (Auto) 0 % (0-10); Hematocrit 48.7 % (41.0-53.0); Hemoglobin 17.2 g/dL (13.5-16.0); Immature Granulocytes % (Auto) 0 % (0-0); Immature Granulocytes Auto 0.02 Thou/mm3 (0.00-0.00); Lymphocytes # (Auto) 2.2 Thou/mm3 (1.0-4.8); Lymphocytes % (Auto) 28 % (10-50); Mean Corpuscular HGB Conc 35.3 g/dl (31.0-37.0); Mean Corpuscular Hemoglobin 30.8 pg (25.0-35.0); Mean Corpuscular Volume 87 fL (80-100); Monocytes # (Auto) 0.7 Thou/mm3 (0.0-0.8); Monocytes % (Auto) 8 % (0-12); Neutrophils % (Auto) 63 % (37-80); Nucleated Red Blood Cell % 0 /100 WBC (0); Platelet Count 385 Thou/mm3 (140-440); RDW Standard Deviation 39.7 fL (35.1-43.9); Red Blood Count 5.59 Miln/mm3 (4.50-5.90)
[2024-09-15 21:34] LABS: Sed Rate (ESR) 6 mm/hr (0-15)
[2024-09-15 21:43] LABS: Alanine Aminotransferase 40 U/L (10-49); Albumin, Serum 5.2 gm/dL (3.5-5.0); Albumin/Globulin Ratio 1.9 (1.2-2.2); Alkaline Phosphatase 76 U/L (46-116); Anion Gap 7 (7-16); Aspartate Amino Transferase 34 U/L (0-34); BUN/Creatinine Ratio 16 Ratio (12-20); Bilirubin,Total 0.9 mg/dL (0.3-1.2); Blood Urea Nitrogen 19 mg/dL (9-23); Calcium 9.9 mg/dL (8.3-10.6); Calcium (Corrected) 9.9 mg/dL (8.5-10.1); Carbon Dioxide 26.3 mMol/L (20.0-31.0); Chloride 98 mMol/L (98-107); Creatinine (Component) 1.2 mg/dL (0.6-1.3); Estimated Creatinine Clearance 74.8 mL/min (>60); Globulin 2.8 gm/dL (2.3-3.5); Glucose 112 mg/dL (74-106); Osmolality,Calculated 265 (275-295); Potassium 4.3 mMol/L (3.4-5.1); Sodium 131 mMol/L (136-145); Thyroid Stimulating Hormone 0.91 uIU/mL (0.55-4.78); eGFR > 60 See Note
[2024-09-15 21:59] LABS: Amphetamine/Methamp Scrn,U Positive (Negative); Barbiturate Screen,Urine Negative (Negative); Benzodiazepines Screen,Urine Negative (Negative); Benzoylecgonine Screen, Ur Negative (Negative); Fentanyl Screen,Urine Negative (Negative); Opiate Screen,Urine Negative (Negative); THC Screen,Urine Negative (Negative)
[2024-09-15] MEDS: tiZANidine HCL 2 MG TABLET 4 MG PO (22:32)
[2024-09-15] MEDS: HYDROcodone/APAP 5/325 TABLET 1 TAB PO (23:32)
[2024-09-15] MEDS: SODIUM CHLORIDE 0.9% 1000 ML 1,000 ML 999 ML IV (23:44)
== END 2024-09-16 00:53 | disposition home or self-care (01) ==
PROVIDERS: Emergency Provider Student in an Organized Health Care Education/Training Program; PCP Family Medicine
DX: F15.10 Other stimulant abuse, uncomplicated (principal); M62.838 Other muscle spasm; R51.9 Headache, unspecified
CPT/HCPCS: 36415; 80053; 80307; 84443; 85025; 85652; 96360; 99284; J7030; A9270

== ENCOUNTER 2024-10-07 20:49 | Emergency (ER) | payer MEDICAID, SELFPAY ==
[2024-10-07 20:50] VITALS: BMI 21.6
[2024-10-07 22:35] VITALS: BP 120/75; PULSE 99; RESP 18; TEMP 36.9; O2SAT 99
--- NOTE | 2024-10-08 00:55 | PD.EDHA ---
ED Headache RME/HPI General Chief Complaint: Headache Stated Complaint: HEADACH Time Seen by Provider: 10/07/24 22:25 Arrival date/time: 10/07/24 20:49 RME / HPI RME / HPI Narrative: This section includes all my notes and documentations, including HPI, PE, and ED course. Boston Lara MD HPI: 39yo male with a history of methamphetamine abuse presents to the ED for a chief complaint of a headache. Patient states he's had a throbbing headache for the last couple of days. No radiation or migration. Patient also subsequently complains of lower abdominal pain. Patient denies any dizziness, nausea, vomiting, diarrhea lightheadedness, numbness, tingling or any other associated symptoms. No other complaints reported. ROS: All negative except as documented in HPI. Physical Exam: General:? Alert and oriented.? No acute distress.?? Eyes:? Conjunctivae and lids clear.? EOMI.? PERRL. ENT:? No nasal congestion.? Pharynx normal.? Tympanic membrane normal bilaterally.??? Neck:? Supple.? No lymphadenopathy.? No JVD.?? Heart:? RRR.? Lungs:? No respiratory distress.? Good air movement.? No rhonchi, wheezing, rales.?? Chest:? No tenderness. Abdomen:? Soft and nontender.? Normal bowel sounds.? No distension.? No rebound or guarding.?? Legs:? No clubbing, cyanosis, edema.? Skin:? Warm and dry.?? Neuro:? Alert and oriented X 3.? Cranial Nerves II-XII grossly intact.? No peripheral motor deficits. Musculoskeletal:? All major joints and bones are not tender with no limited ROM.? I reviewed all diagnostic test results. My review of the CT head report is unremarkable. My review of the CT chest abdomen pelvis report is no acute findings. At this point, diagnoses include migraine headache. Recommend outpatient treatment. Based on my best medical judgment, made decision no further evaluation or treatment indicated at this time. Patient understands and agrees to the discharge instructions customized and printed, see below. Discharge Instructions from Dr. Lara: --After evaluation, your headache is due to migraine.? Fortunately, there is no life-threatening condition.? Such as stroke or brain tumor. --When you get home, try to get some rest in the dark.? This can be the best treatment for migraine headache. --Try to eat regular nutritious meals, maintain good hydration, decrease stress, and get regular physical exercise.? Increase oral fluid and maintain clear urine.? If dark or yellow, increase oral fluid. --Take Zofran for nausea.? With migraines, controlling your nausea as soon as possible can help. --Take Imitrex as needed.? This works better if you take it at the onset of a migraine headache. --See a private doctor of your choice on 10/11/2024 for recheck and further care. Ask to review all the test results from today (including official radiology reports) to make sure you receive all necessary follow-ups and monitoring. Ask to consider a referral to see a neurologist and MRI imaging of the brain. --Seek immediate medical care with worsening or with any concerns.? Boston Lara MD Related Data Previous Rx's ?Medication ?Instructions ?Recorded cetirizine 5 mg-pseudoephedrine ER 1 tab PO BID PRN sinus symptoms 08/30/21 120 mg tablet,extended #14 tabs release,12hr (Zyrtec-D) diphenhydramine HCl 25 mg capsule 25 mg PO Q8H PRN allergic symptoms 09/23/22 (Benadryl) #30 caps ibuprofen 600 mg tablet 600 mg PO QID PRN pain #20 tabs 09/23/22 ciprofloxacin HCl 500 mg tablet 500 mg PO BID #14 tabs 11/29/22 (Cipro) dicyclomine 20 mg tablet 20 mg PO BID #20 tabs 11/29/22 metronidazole 500 mg tablet 500 mg PO BID #14 tabs 11/29/22 cyclobenzaprine 7.5 mg tablet 7.5 mg PO TID PRN muscle spasm #30 12/03/22 tabs hydrocodone 5 mg-acetaminophen 325 1 tab PO BID PRN pain #14 tabs 01/16/23 mg tablet hydroxyzine HCl 50 mg tablet 50 mg PO Q6H PRN anxiety #20 tabs 01/18/24 amoxicillin 875 mg-potassium 1 tab PO BID #14 tabs 02/07/24 clavulanate 125 mg tablet acetaminophen 325 mg tablet 650 mg (2 x 325 mg) PO TID PRN 02/11/24 pain #30 tabs ibuprofen 600 mg tablet 600 mg PO Q8H PRN pain #30 tabs 02/11/24 ibuprofen 600 mg tablet 600 mg PO Q8H PRN pain #14 tabs 02/15/24 lidocaine 5 % topical patch 2 patch topical QDAY PRN pain #30 02/15/24 (Lidoderm) ea acetaminophen 500 mg tablet 500 mg PO Q6H PRN pain #30 tabs 09/15/24 tizanidine 4 mg tablet 4 mg PO BID PRN muscle spasticity 09/15/24 #20 tabs ondansetron 4 mg disintegrating 4 mg PO TID PRN nausea and 10/08/24 tablet vomiting 30 days #10 tabs sumatriptan succinate 25 mg tablet 25 mg PO Q2H PRN migraine headache 10/08/24 (Imitrex) #10 tabs Allergies Allergy/AdvReac Type Severity Reaction Status Date / Time No Known Allergies Allergy Verified 10/07/24 20:53 Review of Systems Review of Systems Systems Reviewed: All systems reviewed, normal except as documented Past Medical History Past Medical History NEUROLOGIC: Negative Neurological Disorders or Seizures CARDIAC: Negative Cardiac Disorders or Congestive Heart Failure RESPIRATORY: Negative Chronic Obstructive Pulmonary Disease (COPD) or Asthma GASTROINTESTINAL: Negative Gastrointestinal Disorders GENITOURINARY: Positive Genitourinary Disorders; Negative Renal Disease MUSCULOSKELETAL: Negative Musculoskeletal Disorders ENDOCRINE: Negative Endocrine Disorders, Diabetes Mellitus Type 1 or Diabetes Mellitus Type 2 HEMATOLOGIC: Negative Blood Disorders or Sickle Cell Disease OTHER HISTORY: Positive Chicken Pox; Negative Hospitalization, Blood Transfusions, Blood Transfusion Reaction, Anesthesia Reactions or Cancer Social History SMOKING STATUS: Current every day smoker SUBSTANCE USE: methamphetamine ED Exam Narrative Physical exam: As noted in HPI. Course Quality Measures none Orders Category Date Time Status CT chest abdomen pelvis wo Stat Exams 10/08/24 01:[address] head/brain wo con Stat Exams 10/08/24 01:15 Completed Vital Signs Vital signs: Vital Signs Temperature 98.5 F 10/07/24 22:35 Pulse Rate 99 10/07/24 22:35 Respiratory Rate 18 10/07/24 22:35 Blood Pressure 120/75 10/07/24 22:35 Pulse Oximetry (%) 99 10/07/24 22:35 Oxygen Delivery Method Room Air 10/07/24 22:35 Headache MDM Narrative MDM Narrative:: 39yo male with a history of methamphetamine abuse presents to the ED for a chief complaint of a headache. Patient states he's had a throbbing headache for the last couple of days. No radiation or migration. Patient also subsequently complains of lower abdominal pain. Patient denies any dizziness, nausea, vomiting, diarrhea lightheadedness, numbness, tingling or any other associated symptoms. No other complaints reported. Patient data External records reviewed:: [facility] previous records (Per chart review, patient was seen here on 09/15/24 for methamphetamine abuse.) Clinical information provided by:: patient Social determinants that could affect healthcare access:: substance use (history of methamphetamine abuse) Patient has the following chronic illnesses:: none How is presenting disease/condition affected by chronic disease/condition?: no chronic disease Evaluation data The following diagnostics were reviewed and interpreted by me:: radiology exam(s) Lab and/or radiology exams considered but not ordered:: none Interpretation Summary: My review of the head CT and chest/abdomen/pelvis CT reports there is no acute findings. Medications / Prescriptions Medications or Prescriptions considered but not ordered:: none Medication administrations:: No medications administered. Consultations Consultation(s) initiated? (list below): No Diagnosis Differential diagnosis headache: migraine, tension headache, subarachnoid hemorrhage, headache, sinusitis and postconcussion syndrome Most likely diagnosis given after review of the tests above:: Migraine headache. Admission Indicated Admission indicated?: not indicated Explain why admission is indicated or not indicated:: With no serious illness, there was no indication for admission. Admission Request Was there a request for admission?: No Disposition Plan Disposition Plan: Discharge Discharge Attestation Discharge Attestation: The patient and all family members were given an opportunity to ask questions and understood the discharge instructions. Discharge instructions specifically effects, indications for sooner follow up or return to the emergency department, and the expected course of current diagnosis. Patient condition: Stable Discharge Plan Plan Patient Disposition: HOME (Self Care) Prescriptions/Referrals Prescriptions/Med Rec: New sumatriptan succinate [Imitrex] 25 mg tablet 25 mg PO Q2H PRN (Reason: migraine headache) Qty: 10 0RF Rx Instructions: do not exceed 8 doses per 24 hrs ondansetron 4 mg tablet,disintegrating 4 mg PO TID PRN (Reason: nausea and vomiting) 30 Days Qty: 10 0RF No Action cetirizine-pseudoephedrine [Zyrtec-D] 5-120 mg tablet extended release 12 hr 1 tab PO BID PRN (Reason: sinus symptoms) Qty: 14 0RF diphenhydramine HCl [Benadryl] 25 mg capsule 25 mg PO Q8H PRN (Reason: allergic symptoms) Qty: 30 0RF ibuprofen 600 mg tablet 600 mg PO QID PRN (Reason: pain) Qty: 20 0RF ciprofloxacin HCl [Cipro] 500 mg tablet 500 mg PO BID Qty: 14 0RF metronidazole 500 mg tablet 500 mg PO BID Qty: 14 0RF dicyclomine 20 mg tablet 20 mg PO BID Qty: 20 0RF hydroxyzine HCl 50 mg tablet 50 mg PO Q6H PRN (Reason: anxiety) Qty: 20 0RF amoxicillin-pot clavulanate 875-125 mg tablet 1 tab PO BID Qty: 14 0RF ibuprofen 600 mg tablet 600 mg PO Q8H PRN (Reason: pain) Qty: 30 0RF acetaminophen 325 mg tablet 650 mg PO TID PRN (Reason: pain) Qty: 30 0RF lidocaine [Lidoderm] 5 % adhesive patch,medicated 2 patch topical QDAY PRN (Reason: pain) Qty: 30 0RF Rx Instructions: leave on most painful area for up to 12 hrs ibuprofen 600 mg tablet 600 mg PO Q8H PRN (Reason: pain) Qty: 14 0RF tizanidine 4 mg tablet 4 mg PO BID PRN (Reason: muscle spasticity) Qty: 20 0RF acetaminophen 500 mg tablet 500 mg PO Q6H PRN (Reason: pain) Qty: 30 0RF cyclobenzaprine 7.5 mg tablet 7.5 mg PO TID PRN (Reason: muscle spasm) Qty: 30 0RF hydrocodone-acetaminophen 5-325 mg tablet 1 tab PO BID MDD 10 PRN (Reason: pain) Qty: 14 0RF Referrals: Michael Rudolph MD [Primary Care Provider] - In 1 week Problem List Clinical Impression: Migraine Patient/Caregiver Discharge Instructions Discharge Activity: activity as tolerated Education Materials: ED Headache, Migraine, Classic Additional Instructions: Discharge Instructions from Dr. Lara: --After evaluation, your headache is due to migraine.? Fortunately, there is no life-threatening condition.? Such as stroke or brain tumor. --When you get home, try to get some rest in the dark.? This can be the best treatment for migraine headache. --Try to eat regular nutritious meals, maintain good hydration, decrease stress, and get regular physical exercise.? Increase oral fluid and maintain clear urine.? If dark or yellow, increase oral fluid. --Take Zofran for nausea.? With migraines, controlling your nausea as soon as possible can help. --Take Imitrex as needed.? This works better if you take it at the onset of a migraine headache. --See a private doctor of your choice on 10/11/2024 for recheck and further care. Ask to review all the test results from today (including official radiology reports) to make sure you receive all necessary follow-ups and monitoring. Ask to consider a referral to see a neurologist and MRI imaging of the brain. --Seek immediate medical care with worsening or with any concerns.? Print Language: Pashto Stand Alone Forms: [facility] Award Info., Patient Portal Info Letter
--- NOTE | 2024-10-08 01:15 | XR_ITS ---
Examination: CT brain head without contrast. 2-D sagittal coronal reconstructions Date and time of exam:October 08, 2024, 0205 hours INDICATIONS: Onset left-sided body weakness today CTDI: vol (mGy):50 DLP: (mGycm):1005 Technique: Multiple CT axial sections of the brain have been obtained, 5 mm slice thickness. Contrast has not been administered. 2-D sagittal, coronal reconstructions have been obtained Low dose protocols were performed. One or more of the following dose reduction techniques were used; automated exposure control, adjustment of the mA and/or KV according to patient size, use of iterative reconstruction technique. Findings: No significant ventricular enlargement. Intra-axial or extra-axial hemorrhage density is not seen. No mass effect or midline shift Basal cisterns are not remarkable. Fourth ventricle is midline. Cranial vault intact. Impression: Negative for acute hemorrhage, mass effect or midline shift As clinically warranted, brain MRI follow-up would best assess for demyelinating disease, acute ischemic change
--- NOTE | 2024-10-08 01:15 | XR_ITS ---
Examination: CT chest, without intravenous contrast. CT abdomen, without intravenous contrast. CT pelvis, without intravenous contrast. 2-D sagittal and coronal reconstructions. 3-D reconstructions. Date and time of exam:October 08, 2024 at 0207 hours INDICATIONS: Shortness of breath and right leg numbness abdominal pain today CTDI vol (mgy) 8.5 DLP (MGycm)628 Technique: Multiple CT images, 3.0 mm slice thickness, obtained chest, abdomen, pelvis, with the high-resolution 64 slice scanner.. Sagittal and coronal 2-D reconstructions are obtained. 3-D reconstructions Low dose protocols were performed. One or more of the following dose reduction techniques were used; automated exposure control, adjustment of the mA and/or KV according to patient size, use of iterative reconstruction technique. Findings: Thoracic aorta pulmonary arteries intact No paratracheal tracheobronchial or bronchopulmonary adenopathy No pneumonia, pulmonary edema or pleural disease No visualized liver or splenic lesion No gallstones No pancreatic mass No renal or ureteral calculi, no hydronephrosis Aorta normal size Normal appendix No bowel obstruction Intact urinary bladder No prostatomegaly The osseous structures are intact IMPRESSION: No acute process in the chest abdomen or pelvis
== END 2024-10-08 05:34 | disposition home or self-care (01) ==
PROVIDERS: Emergency Provider Emergency Medicine; PCP Family Medicine
DX: G43.909 Migraine, unspecified, not intractable, without status migrainosus (principal); R53.1 Weakness; R06.02 Shortness of breath; R20.0 Anesthesia of skin; R10.30 Lower abdominal pain, unspecified
CPT/HCPCS: 70450; 71250; 74176; 99284

== ENCOUNTER 2024-10-18 02:37 | Emergency (ER) | payer MEDICAID, SELFPAY ==
--- NOTE | 2024-10-18 02:39 | XR_ITS ---
Examination: PA lateral chest 2 views TECHNIQUE: Upright PA lateral chest 2 views Date and time: October 18, 2024 at 0255 hours INDICATIONS: Shortness of breath today. FINDINGS: Normal heart size No pneumonia or pulmonary edema Suspicious for 8 mm pulmonary nodule right upper lobe IMPRESSION: Recommend AP lordotic chest follow-up to exclude small pulmonary nodule right upper lobe
--- NOTE | 2024-10-18 02:39 | PD.EDSOB ---
ED SOB =RME/HPI General Chief Complaint: Shortness of Breath/Dyspnea Stated Complaint: LUNG PROBLEMS Time Seen by Provider: 10/18/24 02:58 Arrival date/time: 10/18/24 02:37 RME / HPI RME / HPI Narrative: This section includes all my notes and documentations, including HPI, PE, and ED course. Boston Lara MD HPI: 39yo male with no significant past medical history BIBA from home presents to the ED for a chief complaint of shortness of breath x yesterday. Patient states he started having burning around his lungs with breathing. Denies any cough, congestion, fever, chills or any other associated symptoms. No other complaints reported. ROS: All negative except as documented in HPI. Physical Exam: General: Alert and oriented. No acute distress when remaining still. High BP noted. Eyes: Conjunctivae and lids clear. ENT: No nasal congestion. Neck: Supple. Heart: Sinus tachycardia noted. Lungs: No respiratory distress. Good air movement. No rhonchi, wheezing, rales. Skin: Warm and dry. Neuro: Alert and oriented X 3. I reviewed EMS notes. I ordered oral metoprolol and diagnostic tests. I was told the patient eloped prior to diagnostic test results. Boston Lara MD Related Data Previous Rx's ?Medication ?Instructions ?Recorded cetirizine 5 mg-pseudoephedrine ER 1 tab PO BID PRN sinus symptoms 08/30/21 120 mg tablet,extended #14 tabs release,12hr (Zyrtec-D) diphenhydramine HCl 25 mg capsule 25 mg PO Q8H PRN allergic symptoms 09/23/22 (Benadryl) #30 caps ibuprofen 600 mg tablet 600 mg PO QID PRN pain #20 tabs 09/23/22 ciprofloxacin HCl 500 mg tablet 500 mg PO BID #14 tabs 11/29/22 (Cipro) dicyclomine 20 mg tablet 20 mg PO BID #20 tabs 11/29/22 metronidazole 500 mg tablet 500 mg PO BID #14 tabs 11/29/22 cyclobenzaprine 7.5 mg tablet 7.5 mg PO TID PRN muscle spasm #30 12/03/22 tabs hydrocodone 5 mg-acetaminophen 325 1 tab PO BID PRN pain #14 tabs 01/16/23 mg tablet hydroxyzine HCl 50 mg tablet 50 mg PO Q6H PRN anxiety #20 tabs 01/18/24 amoxicillin 875 mg-potassium 1 tab PO BID #14 tabs 02/07/24 clavulanate 125 mg tablet acetaminophen 325 mg tablet 650 mg (2 x 325 mg) PO TID PRN 02/11/24 pain #30 tabs ibuprofen 600 mg tablet 600 mg PO Q8H PRN pain #30 tabs 02/11/24 ibuprofen 600 mg tablet 600 mg PO Q8H PRN pain #14 tabs 02/15/24 lidocaine 5 % topical patch 2 patch topical QDAY PRN pain #30 02/15/24 (Lidoderm) ea acetaminophen 500 mg tablet 500 mg PO Q6H PRN pain #30 tabs 09/15/24 tizanidine 4 mg tablet 4 mg PO BID PRN muscle spasticity 09/15/24 #20 tabs ondansetron 4 mg disintegrating 4 mg PO TID PRN nausea and 10/08/24 tablet vomiting 30 days #10 tabs sumatriptan succinate 25 mg tablet 25 mg PO Q2H PRN migraine headache 10/08/24 (Imitrex) #10 tabs Allergies Allergy/AdvReac Type Severity Reaction Status Date / Time No Known Allergies Allergy Verified 10/07/24 20:53 Review of Systems Review of Systems Systems Reviewed: All systems reviewed, normal except as documented Past Medical History Past Medical History NEUROLOGIC: Negative Neurological Disorders or Seizures CARDIAC: Negative Cardiac Disorders or Congestive Heart Failure RESPIRATORY: Negative Chronic Obstructive Pulmonary Disease (COPD) or Asthma GASTROINTESTINAL: Negative Gastrointestinal Disorders GENITOURINARY: Positive Genitourinary Disorders; Negative Renal Disease MUSCULOSKELETAL: Negative Musculoskeletal Disorders ENDOCRINE: Negative Endocrine Disorders, Diabetes Mellitus Type 1 or Diabetes Mellitus Type 2 HEMATOLOGIC: Negative Blood Disorders or Sickle Cell Disease OTHER HISTORY: Positive Chicken Pox; Negative Hospitalization, Blood Transfusions, Blood Transfusion Reaction, Anesthesia Reactions or Cancer Social History SMOKING STATUS: Current every day smoker SUBSTANCE USE: methamphetamine ED Exam Narrative Physical exam: As noted in HPI. Course Course Course Narrative: CXR is ordered for determining the etiology of shortness of breath. Quality Measures none Orders Category Date Time Status EKG (ED ONLY) *Do not use* NOW Care 10/18/24 02:39 Completed EKG (ED Only) Stat Exams 10/18/24 02:39 Ordered XR chest 1V portable Stat Exams 10/18/24 02:39 Taken BMP [Basic Metabolic Panel] Stat Lab 10/18/24 03:06 Completed BNP [B-Type Natriuretic Peptide] Stat Lab 10/18/24 03:06 Completed CBC Stat Lab 10/18/24 03:06 Completed D-Dimer Stat Lab 10/18/24 03:06 Completed Free T4 (Free Thyroxine) Stat Lab 10/18/24 03:06 Completed Magnesium Stat Lab 10/18/24 03:06 Completed TSH [Thyroid Stimulating Hormone] Stat Lab 10/18/24 03:06 Completed Troponin I Stat Lab 10/18/24 03:06 Completed Metoprolol Tartrate [Lopressor] Med 10/18/24 03:09 Discontinued 50 mg PO X1 ONE Vital Signs Vital signs: Vital Signs Temperature 98.1 F 10/18/24 02:49 Pulse Rate 103 H 10/18/24 02:49 Respiratory Rate 16 10/18/24 02:49 Blood Pressure 141/95 H 10/18/24 02:49 Pulse Oximetry (%) 98 10/18/24 02:49 Oxygen Delivery Method Room Air 10/18/24 02:49 Shortness of Breath / Dyspnea MDM Narrative MDM Narrative:: Scribe Attestation: 10/18/24 - Tyra Reza am scribing for and in the presence of Dr. Lara. 39yo male with no significant past medical history BIBA from home presents to the ED for a chief complaint of shortness of breath x yesterday. Patient states he started having burning around his lungs . Reports associated nausea and vomiting. Denies any cough, congestion, fever, chills or any other associated symptoms. No other complaints reported. Patient data External records reviewed:: [facility] previous records (Per chart review, patient was seen here on 10/08/24 for a migraine.) and EMS form Clinical information provided by:: patient Social determinants that could affect healthcare access:: none Patient has the following chronic illnesses:: none How is presenting disease/condition affected by chronic disease/condition?: no chronic disease Evaluation data The following diagnostics were reviewed and interpreted by me:: lab results, radiology exam(s) and EKG tracing(s) (My interpretation of the EKG is: Sinus rhythm with nonspecific ST-T changes. Boston Lara MD) Lab and/or radiology exams considered but not ordered:: none Interpretation Summary: Within normal limits. Medications / Prescriptions Medications or Prescriptions considered but not ordered:: none Medication administrations:: Medication Administration History Discontinued Medications Metoprolol Tartrate (Metoprolol Tartrate 25 Mg Tablet) 50 mg PO X1 ONE Stop: 10/18/24 03:10 Last Admin: 10/18/24 03:21 Dose: 50 mg Documented By: JAQUI Metoprolol Consultations Consultation(s) initiated? (list below): No Diagnosis Shortness of Breath Differential Diagnosis: acute exacerbation of chronic obstructive airways disease, congestive heart failure, community acquired pneumonia, asthma with exacerbation, pulmonary embolism and other (SD, psychogenic) Most likely diagnosis given after review of the tests above:: Patient eloped prior to diagnostic test results. Admission Indicated Admission indicated?: not indicated Explain why admission is indicated or not indicated:: Patient eloped. Admission Request Was there a request for admission?: No Disposition Plan Disposition Plan: other (specify) (Patient eloped.) Discharge Plan Plan Patient Disposition: Elopement Prescriptions/Referrals Prescriptions/Med Rec: No Action cetirizine-pseudoephedrine [Zyrtec-D] 5-120 mg tablet extended release 12 hr 1 tab PO BID PRN (Reason: sinus symptoms) Qty: 14 0RF diphenhydramine HCl [Benadryl] 25 mg capsule 25 mg PO Q8H PRN (Reason: allergic symptoms) Qty: 30 0RF ibuprofen 600 mg tablet 600 mg PO QID PRN (Reason: pain) Qty: 20 0RF ciprofloxacin HCl [Cipro] 500 mg tablet 500 mg PO BID Qty: 14 0RF metronidazole 500 mg tablet 500 mg PO BID Qty: 14 0RF dicyclomine 20 mg tablet 20 mg PO BID Qty: 20 0RF hydroxyzine HCl 50 mg tablet 50 mg PO Q6H PRN (Reason: anxiety) Qty: 20 0RF amoxicillin-pot clavulanate 875-125 mg tablet 1 tab PO BID Qty: 14 0RF ibuprofen 600 mg tablet 600 mg PO Q8H PRN (Reason: pain) Qty: 30 0RF acetaminophen 325 mg tablet 650 mg PO TID PRN (Reason: pain) Qty: 30 0RF lidocaine [Lidoderm] 5 % adhesive patch,medicated 2 patch topical QDAY PRN (Reason: pain) Qty: 30 0RF Rx Instructions: leave on most painful area for up to 12 hrs ibuprofen 600 mg tablet 600 mg PO Q8H PRN (Reason: pain) Qty: 14 0RF tizanidine 4 mg tablet 4 mg PO BID PRN (Reason: muscle spasticity) Qty: 20 0RF acetaminophen 500 mg tablet 500 mg PO Q6H PRN (Reason: pain) Qty: 30 0RF cyclobenzaprine 7.5 mg tablet 7.5 mg PO TID PRN (Reason: muscle spasm) Qty: 30 0RF hydrocodone-acetaminophen 5-325 mg tablet 1 tab PO BID MDD 10 PRN (Reason: pain) Qty: 14 0RF sumatriptan succinate [Imitrex] 25 mg tablet 25 mg PO Q2H PRN (Reason: migraine headache) Qty: 10 0RF Rx Instructions: do not exceed 8 doses per 24 hrs ondansetron 4 mg tablet,disintegrating 4 mg PO TID PRN (Reason: nausea and vomiting) 30 Days Qty: 10 0RF Referrals: Michael Rudolph MD [Primary Care Provider] - In 1 week Problem List Clinical Impression: Shortness of breath Patient/Caregiver Discharge Instructions Print Language: Romanian
[2024-10-18 02:42] VITALS: PULSE 97; O2SAT 99; BMI 21.9
[2024-10-18 02:49] VITALS: BP 141/95; PULSE 103; RESP 16; TEMP 36.7; O2SAT 98
[2024-10-18 03:21] VITALS: BP 141/95; PULSE 103
[2024-10-18] MEDS: METOPROLOL TARTRATE 25 MG TABLET 50 MG PO (03:21)
[2024-10-18 03:30] LABS: Basophils % (Auto) 0 % (0-2.5); Eosinophils # (Auto) 0.1 Thou/mm3 (0.0-0.5); Eosinophils % (Auto) 1 % (0-10); Hematocrit 43.5 % (41.0-53.0); Hemoglobin 15.5 g/dL (13.5-16.0); Immature Granulocytes % (Auto) 0 % (0-0); Immature Granulocytes Auto 0.02 Thou/mm3 (0.00-0.00); Lymphocytes # (Auto) 2.1 Thou/mm3 (1.0-4.8); Lymphocytes % (Auto) 25 % (10-50); Mean Corpuscular HGB Conc 35.6 g/dl (31.0-37.0); Mean Corpuscular Hemoglobin 31.4 pg (25.0-35.0); Mean Corpuscular Volume 88 fL (80-100); Monocytes # (Auto) 1.1 Thou/mm3 (0.0-0.8); Monocytes % (Auto) 13 % (0-12); Neutrophils # (Auto) 5.3 Thou/mm3 (1.8-7.7); Neutrophils % (Auto) 62 % (37-80); Nucleated Red Blood Cell % 0 /100 WBC (0); Platelet Count 368 Thou/mm3 (140-440); Red Blood Count 4.93 Miln/mm3 (4.50-5.90); White Blood Count 8.7 Thou/mm3 (3.8-10.6)
--- NOTE | 2024-10-18 03:41 | PC.LAC ---
PATIENT STATES HE WAS LEAVING AND WOULD RETURN LATER FOR HIS RESULT. PATIENT PROCEED TO WALK OUT OF THE ED AT THIS TIME. DR. BENAVIDEZ MADE AWARE.
[2024-10-18 03:48] LABS: B-Type Natriuretic Peptide < 20 pg/mL (0-100); D-Dimer < 250 ng/mL (<600)
[2024-10-18 03:52] LABS: Anion Gap 12 (7-16); BUN/Creatinine Ratio 17 Ratio (12-20); Blood Urea Nitrogen 26 mg/dL (9-23); Calcium 9.4 mg/dL (8.3-10.6); Carbon Dioxide 22.8 mMol/L (20.0-31.0); Chloride 102 mMol/L (98-107); Creatinine (Component) 1.5 mg/dL (0.6-1.3); Estimated Creatinine Clearance 60.6 mL/min (>60); Free T4 (Free Thyroxine) 1.71 ng/dL (0.89-1.76); Glucose 115 mg/dL (74-106); Magnesium 2.5 mg/dL (1.6-2.6); Osmolality,Calculated 279 (275-295); Potassium 3.8 mMol/L (3.4-5.1); Sodium 137 mMol/L (136-145); Thyroid Stimulating Hormone 1.66 uIU/mL (0.55-4.78); Troponin I < 0.020 ng/mL (0.0-0.045); eGFR > 60 See Note
== END 2024-10-18 03:52 | disposition left against medical advice (07) ==
PROVIDERS: Emergency Provider Emergency Medicine; PCP Family Medicine
DX: R06.02 Shortness of breath (principal); Z53.29 Procedure and treatment not carried out because of patient's decision for other reasons
CPT/HCPCS: 36415; 71045; 80048; 83735; 83880; 84439; 84443; 84484; 85025; 85379; 93005; 99281; A9270

== ENCOUNTER 2024-10-22 23:36 | Emergency (ER) | payer MEDICAID, SELFPAY ==
--- NOTE | 2024-10-22 23:38 | EDNOTE_ITS ---
ED Recheck Abnl Lab Rx-RME/HPI General Chief Complaint: Shortness of Breath/Dyspnea Stated Complaint: UNDER THE INFLUENCE Time Seen by Provider: 10/23/24 00:33 Arrival date/time: 10/22/24 23:36 RME / HPI RME / HPI narrative: This section includes all my notes and documentations, including HPI, PE, and ED course. Boston Lara MD HPI: 39yo male with a history of methamphetamine abuse BIBA from home with feeling not well and dyspnea. Has trouble describing further. Including onset and exacerbating factors and relieving factors and describing quality and quantity of the symptoms. No thoughts of hurting himself or others. No hallucinations. No other complaints. ROS: All negative except as documented in HPI. Physical Exam: General:? Alert and oriented.? No acute distress.??High BP noted. Eyes:? Conjunctivae and lids clear.? EOMI.? PERRL. ENT:? No nasal congestion.? Pharynx normal.? Tympanic membrane normal bilaterally.??? Neck:? Supple.? No carotid bruit.? No JVD.?? Heart: Sinus tachycardia noted. Lungs:? No respiratory distress.? Good air movement.? No rhonchi, wheezing, rales.?? Chest:? No tenderness. Abdomen:? Soft and nontender.? Normal bowel sounds.? No distension.? No rebound or guarding.?? Back:? No CVA tenderness.?? Legs:? No clubbing, cyanosis, edema.? Skin:? Warm and dry.?? Neuro:? Alert and oriented X 3.? Cranial Nerves II-XII grossly intact.? No peripheral motor deficits. I reviewed EMS notes. I reviewed all diagnostic test results. My interpretation of the EKG is sinus tachycardia with nonspecific ST-T changes. Blood tests unremarkable. Patient declined to give us urine specimen. At this point, diagnoses include high BP and tachycardia. Treatment here included oral clonidine and oral metoprolol. Significant improvement noted. Recommended more outpatient management. Based on my best medical judgment, made decision no further evaluation or treatment indicated at this time. Patient understands and agrees to the discharge instructions customized and printed, see below. Discharge instructions from Dr. Lara: 1. After extensive evaluation, there is no life-threatening condition. Such as heart attack or pulmonary embolism (blood clots in your lungs). 2. We couldn't complete all diagnostic tests, including urine tests because you declined. 3. Avoid all drugs, including methamphetamine, to prevent serious and even fatal injuries and accidents, including heart attack. 4. See a private doctor on 10/25/2024 for recheck and further care. To make sure there is no serious underlying heart condition, ask to help you get more tests for your heart that cannot be done here in the ER. Such as Holter Monitor (cardiac monitoring at home from a day to even a month), heart stress test (on treadmill or with medication), echocardiogram (imaging of your heart structures), heart catherization (checking for blockages in your heart arteries), and a referral to see a Mechanical Systems Design Engineer. Ask for a referral to see lung specialist to make sure there is no serious underlying lung condition. Ask for help to quit all drugs. 5. Seek immediate medical care with worsening or with any concerns. Boston Lara MD Related Data Previous Rx's ?Medication ?Instructions ?Recorded cetirizine 5 mg-pseudoephedrine ER 1 tab PO BID PRN si nus symptoms 08/30/21 120 mg tablet,extended #14 tabs release,12hr (Zyrtec-D) diphenhydramine HCl 25 mg capsule 25 mg PO Q8H PRN all ergic symptoms 09/23/22 (Benadryl) #30 caps ibuprofen 600 mg tablet 600 mg PO QID PRN pain #20 t abs 09/23/22 ciprofloxacin HCl 500 mg tablet 500 mg PO BID #14 tabs 11/29/22 (Cipro) dicyclomine 20 mg tablet 20 mg PO BID #20 tabs metronidazole 500 mg tablet 500 mg PO BID #14 tabs cyclobenzaprine 7.5 mg tablet 7.5 mg PO TID PRN muscle spasm #30 12/03/22 tabs hydrocodone 5 mg-acetaminophen 325 1 tab PO BID PRN pa in #14 tabs 01/16/23 mg tablet hydroxyzine HCl 50 mg tablet 50 mg PO Q6H PRN anxiety #20 tabs 01/18/24 amoxicillin 875 mg-potassium 1 tab PO BID #14 tabs 09/25 clavulanate 125 mg tablet acetaminophen 325 mg tablet 650 mg (2 x 325 mg) PO TID PRN 02/11/24 pain #30 tabs ibuprofen 600 mg tablet 600 mg PO Q8H PRN pain #30 t abs 02/11/24 ibuprofen 600 mg tablet 600 mg PO Q8H PRN pain #14 t abs 02/15/24 lidocaine 5 % topical patch 2 patch topical QDAY PRN p ain #30 02/15/24 (Lidoderm) ea acetaminophen 500 mg tablet 500 mg PO Q6H PRN pain #30 tabs 09/15/24 tizanidine 4 mg tablet 4 mg PO BID PRN muscle spast icity 09/15/24 #20 tabs ondansetron 4 mg disintegrating 4 mg PO TID PRN nausea and 10/08/24 tablet vomiting 30 days #10 tabs sumatriptan succinate 25 mg tablet 25 mg PO Q2H PRN mi graine headache 10/08/24 (Imitrex) #10 tabs Allergies Allergy/AdvReac Type Severity Reaction Status Date / Time No Known Allergies Allergy Verified 10/23/24 00:11 Review of Systems Review of Systems Systems Reviewed: All systems reviewed, normal except as documented ED Exam Narrative Physical exam: As noted in HPI. Course Quality Measures none Orders Category Date Time Status Straight [In and Out Catheter] X1 Care 10/23/24 00:32 Active Acetaminophen Stat Lab 10/23/24 01:38 Completed Alcohol, Blood Medical Stat Lab 10/23/24 01:38 Completed BNP [B-Type Natriuretic Peptide] Stat Lab 10/23/24 01:38 Completed Bilirubin,Direct Stat Lab 10/23/24 01:38 Completed CBC Stat Lab 10/23/24 01:38 Completed CMP [Comprehensive Metabolic Panel] Stat Lab 10/23/24 01:38 Completed D-Dimer Stat Lab 10/23/24 01:38 Completed Drug Screen,Urine Stat Lab 10/23/24 00:32 Ordered Free T4 (Free Thyroxine) Stat Lab 10/23/24 01:38 Completed Magnesium Stat Lab 10/23/24 01:38 Completed PT [Prothrombin Time with INR] Stat Lab 10/23/24 01:38 Completed PTT [Partial Thromboplastin Time] Stat Lab 10/23/24 01:38 Completed Salicylate Stat Lab 10/23/24 01:38 Completed TSH [Thyroid Stimulating Hormone] Stat Lab 10/23/24 01:38 Completed Troponin I Stat Lab 10/23/24 01:38 Completed UA, C/S IF [Urinalysis, C/S if Indicated] Stat Lab 10/23/24 00:32 Ordered Metoprolol Tartrate [Lopressor] Med 10/23/24 00:30 Discontinued 100 mg PO X1 ONE cloNIDine HCL [Catapres] Med 10/23/24 00:30 Discontinued 0.1 mg PO X1 ONE Vital Signs Vital signs: Vital Signs Temperature 98.3 F 10/23/24 00:03 Pulse Rate 150 H 10/23/24 00:03 Respiratory Rate 18 10/23/24 00:03 Blood Pressure 174/123 H 10/23/24 00:03 Pulse Oximetry (%) 100 10/23/24 00:03 Oxygen Delivery Method Room Air 10/23/24 00:03 Recheck / Abnormal Lab / Rx MDM Narrative MDM Narrative:: 39yo male with a history of methamphetamine abuse BIBA from home with feeling not well and dyspnea. Has trouble describing further. Including onset and exacerbating factors and relieving factors and describing quality and quantity of the symptoms. No thoughts of hurting himself or others. No hallucinations. No other complaints. Patient data External records reviewed:: [facility] previous records (Per chart review, patient was seen here on 10/08/24 for migraine.) and EMS form Clinical information provided by:: patient Social determinants that could affect healthcare access:: substance use (history of methamphetamine use) Patient has the following chronic illnesses:: none How is presenting disease/condition affected by chronic disease/condition?: no chronic disease Evaluation data The following diagnostics were reviewed and interpreted by me:: lab results and EKG tracing(s) (My interpretation of the EKG is: Sinus tachycardia (140 bpm) with nonspecific ST-T changes. Boston Lara MD) Lab and/or radiology exams considered but not ordered:: none Interpretation Summary: I reviewed all diagnostic test results. My interpretation of the EKG is sinus tachycardia with nonspecific ST-T changes. Blood tests unremarkable. Medications / Prescriptions Medications or Prescriptions considered but not ordered:: none Medication administrations:: Medication Administration History Discontinued Medications Clonidine (Clonidine Hcl 0.1 Mg Tablet) 0.1 mg PO X1 ONE Stop: 10/23/24 00:31 Last Admin: 10/23/24 01:33 Dose: 0.1 mg Documented By: Metoprolol Tartrate (Metoprolol Tartrate 25 Mg Tablet) 100 mg PO X1 ONE Stop: 10/23/24 00:31 Last Admin: 10/23/24 01:32 Dose: 100 mg Documented By: Clonidine, Metoprolol Consultations Consultation(s) initiated? (list below): No Diagnosis Recheck Differential Diagnosis: other (DC, PE, psychogenic, drug intoxication) Most likely diagnosis given after review of the tests above:: High BP and tachycardia. Admission Indicated Admission indicated?: not indicated Explain why admission is indicated or not indicated:: With significant improvement and no condition needing emergent intervention, there was no indication for admission. Admission Request Was there a request for admission?: No Disposition Plan Disposition Plan: Discharge Discharge Attestation Discharge Attestation: The patient and all family members were given an opportunity to ask questions and understood the discharge instructions. Discharge instructions specifically effects, indications for sooner follow up or return to the emergency department, and the expected course of current diagnosis. Patient condition: Stable Discharge Plan Plan Patient Disposition: HOME (Self Care) Prescriptions/Referrals Prescriptions/Med Rec: No Action cetirizine-pseudoephedrine [Zyrtec-D] 5-120 mg tablet extended release 12 hr 1 tab PO BID PRN (Reason: sinus symptoms) Qty: 14 0RF diphenhydramine HCl [Benadryl] 25 mg capsule 25 mg PO Q8H PRN (Reason: allergic symptoms) Qty: 30 0RF ibuprofen 600 mg tablet 600 mg PO QID PRN (Reason: pain) Qty: 20 0RF ciprofloxacin HCl [Cipro] 500 mg tablet 500 mg PO BID Qty: 14 0RF metronidazole 500 mg tablet 500 mg PO BID Qty: 14 0RF dicyclomine 20 mg tablet 20 mg PO BID Qty: 20 0RF hydroxyzine HCl 50 mg tablet 50 mg PO Q6H PRN (Reason: anxiety) Qty: 20 0RF amoxicillin-pot clavulanate 875-125 mg tablet 1 tab PO BID Qty: 14 0RF ibuprofen 600 mg tablet 600 mg PO Q8H PRN (Reason: pain) Qty: 30 0RF acetaminophen 325 mg tablet 650 mg PO TID PRN (Reason: pain) Qty: 30 0RF lidocaine [Lidoderm] 5 % adhesive patch,medicated 2 patch topical QDAY PRN (Reason: pain) Qty: 30 0RF Rx Instructions: leave on most painful area for up to 12 hrs ibuprofen 600 mg tablet 600 mg PO Q8H PRN (Reason: pain) Qty: 14 0RF tizanidine 4 mg tablet 4 mg PO BID PRN (Reason: muscle spasticity) Qty: 20 0RF acetaminophen 500 mg tablet 500 mg PO Q6H PRN (Reason: pain) Qty: 30 0RF cyclobenzaprine 7.5 mg tablet 7.5 mg PO TID PRN (Reason: muscle spasm) Qty: 30 0RF hydrocodone-acetaminophen 5-325 mg tablet 1 tab PO BID MDD 10 PRN (Reason: pain) Qty: 14 0RF sumatriptan succinate [Imitrex] 25 mg tablet 25 mg PO Q2H PRN (Reason: migraine headache) Qty: 10 0RF Rx Instructions: do not exceed 8 doses per 24 hrs ondansetron 4 mg tablet,disintegrating 4 mg PO TID PRN (Reason: nausea and vomiting) 30 Days Qty: 10 0RF Referrals: Jacob Stock PA-C [Primary Care Provider] - In 1 week Problem List Clinical Impression: Shortness of breath Patient/Caregiver Discharge Instructions Discharge Activity: activity as tolerated Education Materials: ED Drug Abuse, ED Shortness of Breath (Dyspnea) Additional Instructions: Discharge instructions from Dr. Lara: 1. After extensive evaluation, there is no life-threatening condition.? Such as heart attack or pulmonary embolism (blood clots in your lungs). 2. We couldn't complete all diagnostic tests, including urine tests because you declined. 3. Avoid all drugs, including methamphetamine, to prevent serious and even fatal injuries and accidents, including heart attack. 4. See a private doctor on 10/25/2024 for recheck and further care. To make sure there is no serious underlying heart condition, ask to help you get more tests for your heart that cannot be done here in the ER.? Such as Holter Monitor (cardiac monitoring at home from a day to even a month), heart stress test (on treadmill or with medication), echocardiogram (imaging of your heart structures), heart catherization (checking for blockages in your heart arteries), and a referral to see a Mechanical Systems Design Engineer. Ask for a referral to see lung specialist to make sure there is no serious underlying lung condition. Ask for help to quit all drugs. 5. Seek immediate medical care with worsening or with any concerns.?? Print Language: Turkish Stand Alone Forms: [employer] Award Info., Patient Portal Info Letter
[2024-10-23 00:03] VITALS: BP 174/123; PULSE 150; RESP 18; TEMP 36.8; O2SAT 100
[2024-10-23 00:12] VITALS: PULSE 140; RESP 18; O2SAT 97; BMI 21.2
--- NOTE | 2024-10-23 00:20 | PC.NURSE ---
Patient uncooperative with EKG. Patient unable to hold still. Patient was removing EKG leads as this resume writer was attempting to place back on patient. Attempted x3, patient continued to refuse EKG and care. Patient assisted back into lobby. MD Lara notified.
--- NOTE | 2024-10-23 01:08 | PC.NURSE ---
THUS FAR, PT REFUSING VS, EKG AND LAB WORK.
[2024-10-23 01:30] VITALS: BP 174/126; PULSE 141; RESP 20; TEMP 37.1; O2SAT 96
[2024-10-23 01:32] VITALS: BP 174/126; PULSE 141
[2024-10-23] MEDS: METOPROLOL TARTRATE 25 MG TABLET 100 MG PO (01:32)
[2024-10-23 01:33] VITALS: BP 174/126; PULSE 141
[2024-10-23] MEDS: cloNIDine HCL 0.1 MG TABLET PO (01:33)
[2024-10-23 01:58] LABS: Basophils % (Auto) 0 % (0-2.5); Eosinophils % (Auto) 0 % (0-10); Hematocrit 42.8 % (41.0-53.0); Hemoglobin 14.8 g/dL (13.5-16.0); Immature Granulocytes % (Auto) 0 % (0-0); Immature Granulocytes Auto 0.06 Thou/mm3 (0.00-0.00); Lymphocytes # (Auto) 1.2 Thou/mm3 (1.0-4.8); Lymphocytes % (Auto) 7 % (10-50); Mean Corpuscular HGB Conc 34.6 g/dl (31.0-37.0); Mean Corpuscular Volume 90 fL (80-100); Monocytes # (Auto) 0.7 Thou/mm3 (0.0-0.8); Monocytes % (Auto) 4 % (0-12); Neutrophils # (Auto) 15.4 Thou/mm3 (1.8-7.7); Neutrophils % (Auto) 89 % (37-80); Nucleated Red Blood Cell % 0 /100 WBC (0); Platelet Count 388 Thou/mm3 (140-440); RDW Standard Deviation 43.3 fL (35.1-43.9); Red Blood Count 4.78 Miln/mm3 (4.50-5.90); White Blood Count 17.5 Thou/mm3 (3.8-10.6)
[2024-10-23 02:16] LABS: D-Dimer < 250 ng/mL (<600)
[2024-10-23 02:17] LABS: Partial Thromboplastin Time 24.8 Seconds (22.0-36.0); Prothrombin Time 10.8 Seconds (9.0-12.2)
[2024-10-23 02:20] LABS: B-Type Natriuretic Peptide 59 pg/mL (0-100)
[2024-10-23 02:33] LABS: Acetaminophen < 2.0 mcg/mL (10.0-20.0); Alanine Aminotransferase 59 U/L (10-49); Albumin, Serum 5.3 gm/dL (3.5-5.0); Albumin/Globulin Ratio 2.1 (1.2-2.2); Alcohol, Blood Medical < 3.0 mg/dL (0-10.0); Alkaline Phosphatase 93 U/L (46-116); Anion Gap 16 (7-16); Aspartate Amino Transferase 25 U/L (0-34); BUN/Creatinine Ratio 11 Ratio (12-20); Bilirubin,Direct 0.1 mg/dL (0.0-0.3); Bilirubin,Total 0.4 mg/dL (0.3-1.2); Blood Urea Nitrogen 15 mg/dL (9-23); Calcium 9.9 mg/dL (8.3-10.6); Calcium (Corrected) 9.9 mg/dL (8.5-10.1); Carbon Dioxide 21.8 mMol/L (20.0-31.0); Chloride 104 mMol/L (98-107); Creatinine (Component) 1.4 mg/dL (0.6-1.3); Free T4 (Free Thyroxine) 1.39 ng/dL (0.89-1.76); Globulin 2.5 gm/dL (2.3-3.5); Glucose 150 mg/dL (74-106); Magnesium 2.1 mg/dL (1.6-2.6); Osmolality,Calculated 286 (275-295); Potassium 3.8 mMol/L (3.4-5.1); Salicylate < 3.0 mg/dL; Sodium 142 mMol/L (136-145); Thyroid Stimulating Hormone 0.42 uIU/mL (0.55-4.78); Total Protein 7.8 gm/dL (5.7-8.2); Troponin I < 0.020 ng/mL (0.0-0.045); eGFR > 60 See Note
[2024-10-23 02:55] VITALS: BP 178/134; PULSE 84; RESP 17; TEMP 36.9; O2SAT 100
== END 2024-10-23 03:02 | disposition home or self-care (01) ==
PROVIDERS: Emergency Provider Emergency Medicine; PCP Physician Assistant Medical
DX: R06.02 Shortness of breath (principal)
CPT/HCPCS: 36415; 80053; 80307; 80320; 80329; 81001; 82248; 83735; 83880; 84439; 84443; 84484; 85025; 85379; 85610; 85730; 99283; A9270; G0480

== ENCOUNTER 2024-10-26 23:51 | Emergency (ER) | payer MEDICAID, SELFPAY ==
[2024-10-26 23:58] VITALS: BP 157/89; PULSE 155; RESP 20; TEMP 36.8; O2SAT 97
[2024-10-26 23:59] VITALS: BMI 21.2
[2024-10-27 01:05] VITALS: BP 151/95; PULSE 119; RESP 19; O2SAT 100
--- NOTE | 2024-10-27 01:11 | EKG_ITS ---
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
--- NOTE | 2024-10-27 01:27 | PD.EDMEDCL ---
ED Medical Clearance RME/HPI General Chief complaint: Medical Clearance Stated complaint: long term clearance Time Seen by Provider: 10/27/24 01:19 Arrival date/time: 10/26/24 23:51 RME / HPI RME / HPI Narrative: DR WADE MAIN ED EVALUATION: 39 y/o male with Hx of Smoking and Methamphetamine use BIB PPD presents to ED requesting medical clearance. Patient c/o severe chest pain s/p going for a jog. Patient denies methamphetamine use or any other associated symptoms or aggravating factors. No modifying factors, no radiation, no migration. No other pain reported overall. No other concerns or complaints expressed at this time. Related Information Previous Rx's ?Medication ?Instructions ?Recorded cetirizine 5 mg-pseudoephedrine ER 1 tab PO BID PRN sinus symptoms 08/30/21 120 mg tablet,extended #14 tabs release,12hr (Zyrtec-D) diphenhydramine HCl 25 mg capsule 25 mg PO Q8H PRN allergic symptoms 09/23/22 (Benadryl) #30 caps ibuprofen 600 mg tablet 600 mg PO QID PRN pain #20 tabs 09/23/22 ciprofloxacin HCl 500 mg tablet 500 mg PO BID #14 tabs 11/29/22 (Cipro) dicyclomine 20 mg tablet 20 mg PO BID #20 tabs 11/29/22 metronidazole 500 mg tablet 500 mg PO BID #14 tabs 11/29/22 cyclobenzaprine 7.5 mg tablet 7.5 mg PO TID PRN muscle spasm #30 12/03/22 tabs hydrocodone 5 mg-acetaminophen 325 1 tab PO BID PRN pain #14 tabs 01/16/23 mg tablet hydroxyzine HCl 50 mg tablet 50 mg PO Q6H PRN anxiety #20 tabs 01/18/24 amoxicillin 875 mg-potassium 1 tab PO BID #14 tabs 02/07/24 clavulanate 125 mg tablet acetaminophen 325 mg tablet 650 mg (2 x 325 mg) PO TID PRN 02/11/24 pain #30 tabs ibuprofen 600 mg tablet 600 mg PO Q8H PRN pain #30 tabs 02/11/24 ibuprofen 600 mg tablet 600 mg PO Q8H PRN pain #14 tabs 02/15/24 lidocaine 5 % topical patch 2 patch topical QDAY PRN pain #30 02/15/24 (Lidoderm) ea acetaminophen 500 mg tablet 500 mg PO Q6H PRN pain #30 tabs 09/15/24 tizanidine 4 mg tablet 4 mg PO BID PRN muscle spasticity 09/15/24 #20 tabs ondansetron 4 mg disintegrating 4 mg PO TID PRN nausea and 10/08/24 tablet vomiting 30 days #10 tabs sumatriptan succinate 25 mg tablet 25 mg PO Q2H PRN migraine headache 10/08/24 (Imitrex) #10 tabs Allergies Allergy/AdvReac Type Severity Reaction Status Date / Time No Known Allergies Allergy Verified 10/23/24 00:11 Review of Systems Review of Systems Systems Reviewed: All systems reviewed, normal except as documented Past Medical History Past Medical History GENITOURINARY: Positive Genitourinary Disorders OTHER HISTORY: Positive Chicken Pox Social History SMOKING STATUS: Light (< 1 pack/day) SUBSTANCE USE: methamphetamine ED Exam Narrative Physical exam: GENERAL APPEARANCE: alert and oriented x 4, well-developed, well-nourished, appears anxious and restless. VITALS: All vitals were reviewed and the pulse ox is 100% on room air, which is normal according to my interpretation. HEENT: Normocephalic, atraumatic; pupils equal, round, reactive to light; EOMI; mucous membranes pink, moist; oropharynx clear NECK: Supple LUNGS: CTABL; no wheezes, no rales, no rhonchi HEART: Tachycardic, regular rhythm; normal S1, S2; no murmurs ABDOMEN: non distended; normal BS; soft, no tenderness, no guarding, no rebound; no masses, no organomegaly, no hernia BACK: no CVA tenderness EXTREMITIES: atraumatic; no edema NEUROLOGIC: awake; alert and oriented x4; cranial nerves II-XII grossly intact; no focal sensory or motor deficits PSYCHIATRIC: Appears restless, anxious. SKIN: warm, dry, normal color; no rashes Course Quality Measures none Orders Category Date Time Status EKG (ED ONLY) *Do not use* NOW Care 10/27/24 01:11 Active EKG (ED Only) Stat Exams 10/27/24 01:11 Ordered LORazepam [Ativan Inj] Med 10/27/24 01:48 Discontinued 1 mg IM X1 ONE Vital Signs Vital signs: Vital Signs Temperature 98.2 F 10/26/24 23:58 Pulse Rate 155 H 10/26/24 23:58 Respiratory Rate 20 10/26/24 23:58 Blood Pressure 157/89 H 10/26/24 23:58 Pulse Oximetry (%) 97 10/26/24 23:58 Oxygen Delivery Method Room Air 10/26/24 23:58 Medical Clearance MDM Narrative MDM Narrative:: Scribe Attestation: IDeanne, am scribing for and in the presence of Dr. Wade. Provider Notation: Although this document has been carefully reviewed, there may still be some phonetic and other typographical errors.? These errors are purely grammatical due to imperfections in the software program and should not be construed in any way to? compromise the substance of the patient's medical care during this visit. Patient data External records reviewed:: [facility] previous records and Other (specify) (PPD) Clinical information provided by:: patient and law enforcement Social determinants that could affect healthcare access:: substance use (Methamphetamine) Patient has the following chronic illnesses:: Recreational drug use How is presenting disease/condition affected by chronic disease/condition?: exacerbated by Evaluation data The following diagnostics were reviewed and interpreted by me:: EKG tracing(s) (EKG manual reading, my interpretation: sinus tachycardia, moderate artifacts, no acute ischemic changes.) Lab and/or radiology exams considered but not ordered:: None Interpretation Summary: See EKG above. Medications / Prescriptions Medications or Prescriptions considered but not ordered:: None Medication administrations:: Medication Administration History Discontinued Medications Lorazepam (Lorazepam 2 Mg/Ml Vial) 1 mg IM X1 ONE Stop: 10/27/24 01:49 See above if any Consultations Consultation(s) initiated? (list below): No Diagnosis Medical Clearance Differential Diagnosis: other (Atypical chest pain, NM, Costochondritis, Esophageal spasm, GERD, Anxiety disorder) Most likely diagnosis given after review of the tests above:: Sinus tachycardia, Chest pain, Methamphetamine use, Anxiety Admission Indicated Admission indicated?: not indicated Explain why admission is indicated or not indicated:: Patient does not meet admission criteria. Admission Request Was there a request for admission?: No Disposition Plan Disposition Plan: Discharge (To PPD) Discharge Attestation Discharge Attestation: The patient and all family members were given an opportunity to ask questions and understood the discharge instructions. Discharge instructions specifically effects, indications for sooner follow up or return to the emergency department, and the expected course of current diagnosis. Patient condition: Stable Discharge Plan Plan Patient Disposition: Assisted/Court/Law Discharge Disposition comment: Okay to book Prescriptions/Referrals Prescriptions/Med Rec: No Action cetirizine-pseudoephedrine [Zyrtec-D] 5-120 mg tablet extended release 12 hr 1 tab PO BID PRN (Reason: sinus symptoms) Qty: 14 0RF diphenhydramine HCl [Benadryl] 25 mg capsule 25 mg PO Q8H PRN (Reason: allergic symptoms) Qty: 30 0RF ibuprofen 600 mg tablet 600 mg PO QID PRN (Reason: pain) Qty: 20 0RF ciprofloxacin HCl [Cipro] 500 mg tablet 500 mg PO BID Qty: 14 0RF metronidazole 500 mg tablet 500 mg PO BID Qty: 14 0RF dicyclomine 20 mg tablet 20 mg PO BID Qty: 20 0RF hydroxyzine HCl 50 mg tablet 50 mg PO Q6H PRN (Reason: anxiety) Qty: 20 0RF amoxicillin-pot clavulanate 875-125 mg tablet 1 tab PO BID Qty: 14 0RF ibuprofen 600 mg tablet 600 mg PO Q8H PRN (Reason: pain) Qty: 30 0RF acetaminophen 325 mg tablet 650 mg PO TID PRN (Reason: pain) Qty: 30 0RF lidocaine [Lidoderm] 5 % adhesive patch,medicated 2 patch topical QDAY PRN (Reason: pain) Qty: 30 0RF Rx Instructions: leave on most painful area for up to 12 hrs ibuprofen 600 mg tablet 600 mg PO Q8H PRN (Reason: pain) Qty: 14 0RF tizanidine 4 mg tablet 4 mg PO BID PRN (Reason: muscle spasticity) Qty: 20 0RF acetaminophen 500 mg tablet 500 mg PO Q6H PRN (Reason: pain) Qty: 30 0RF cyclobenzaprine 7.5 mg tablet 7.5 mg PO TID PRN (Reason: muscle spasm) Qty: 30 0RF hydrocodone-acetaminophen 5-325 mg tablet 1 tab PO BID MDD 10 PRN (Reason: pain) Qty: 14 0RF sumatriptan succinate [Imitrex] 25 mg tablet 25 mg PO Q2H PRN (Reason: migraine headache) Qty: 10 0RF Rx Instructions: do not exceed 8 doses per 24 hrs ondansetron 4 mg tablet,disintegrating 4 mg PO TID PRN (Reason: nausea and vomiting) 30 Days Qty: 10 0RF Problem List Clinical Impression: Sinus tachycardia, Chest pain, Methamphetamine abuse, Anxiety Patient/Caregiver Discharge Instructions Education Materials: ED Drug Abuse Print Language: Georgian
[2024-10-27] MEDS: LORazepam 2 MG/ML VIAL 1 MG IM (01:59)
== END 2024-10-27 02:28 ==
LOC: SERX 10-27 02:01
PROVIDERS: Emergency Provider Emergency Medicine; PCP Family Medicine
DX: Z02.89 Encounter for other administrative examinations (principal); R94.31 Abnormal electrocardiogram [ECG] [EKG]; F15.10 Other stimulant abuse, uncomplicated; Z87.891 Personal history of nicotine dependence; F41.9 Anxiety disorder, unspecified; R07.9 Chest pain, unspecified
CPT/HCPCS: 93005; 96372; 99283; J2060

== ENCOUNTER 2024-10-27 12:54 | Emergency (ER) | payer MEDICAID, SELFPAY ==
[2024-10-27 13:16] VITALS: BP 123/83; PULSE 100; RESP 18; TEMP 36.6; O2SAT 100
--- NOTE | 2024-10-27 13:32 | EDNOTE_ITS ---
<Statement entered by Meggan Wade MD - 10/29/24 18:57> As co-signing physician, I was present and available for consult prn. I concur with the plan and care as documented by the midlevel provider. ED Psych RME/HPI General Chief Complaint: Psychiatric Symptoms Stated Complaint: MENTAL EVAL Time Seen by Provider: 10/27/24 13:28 Arrival date/time: 10/27/24 12:54 RME / HPI RME / HPI Narrative: 39-year-old male patient with history of drug-induced psychosis, was sent to us from [facility] for 5150 hold. Apparently patient was picked up yesterday and was detained, and today was noted to be not answering questions. And seems bizarre. Was placed on a 5150 hold. On my initial evaluation, patient is answering question appropriately, he denies any suicidal or homicidal ideation. Patient is denying any complaints. Told me that he used meth yesterday. Related Data Previous Rx's ?Medication ?Instructions ?Recorded cetirizine 5 mg-pseudoephedrine ER 1 tab PO BID PRN si nus symptoms 08/30/21 120 mg tablet,extended #14 tabs release,12hr (Zyrtec-D) diphenhydramine HCl 25 mg capsule 25 mg PO Q8H PRN all ergic symptoms 09/23/22 (Benadryl) #30 caps ibuprofen 600 mg tablet 600 mg PO QID PRN pain #20 t abs 09/23/22 ciprofloxacin HCl 500 mg tablet 500 mg PO BID #14 tabs 11/29/22 (Cipro) dicyclomine 20 mg tablet 20 mg PO BID #20 tabs metronidazole 500 mg tablet 500 mg PO BID #14 tabs cyclobenzaprine 7.5 mg tablet 7.5 mg PO TID PRN muscle spasm #30 12/03/22 tabs hydrocodone 5 mg-acetaminophen 325 1 tab PO BID PRN pa in #14 tabs 01/16/23 mg tablet hydroxyzine HCl 50 mg tablet 50 mg PO Q6H PRN anxiety #20 tabs 01/18/24 amoxicillin 875 mg-potassium 1 tab PO BID #14 tabs 09/25 clavulanate 125 mg tablet acetaminophen 325 mg tablet 650 mg (2 x 325 mg) PO TID PRN 02/11/24 pain #30 tabs ibuprofen 600 mg tablet 600 mg PO Q8H PRN pain #30 t abs 02/11/24 ibuprofen 600 mg tablet 600 mg PO Q8H PRN pain #14 t abs 02/15/24 lidocaine 5 % topical patch 2 patch topical QDAY PRN p ain #30 02/15/24 (Lidoderm) ea acetaminophen 500 mg tablet 500 mg PO Q6H PRN pain #30 tabs 09/15/24 tizanidine 4 mg tablet 4 mg PO BID PRN muscle spast icity 09/15/24 #20 tabs ondansetron 4 mg disintegrating 4 mg PO TID PRN nausea and 10/08/24 tablet vomiting 30 days #10 tabs sumatriptan succinate 25 mg tablet 25 mg PO Q2H PRN mi graine headache 10/08/24 (Imitrex) #10 tabs Allergies Allergy/AdvReac Type Severity Reaction Status Date / Time No Known Allergies Allergy Verified 10/23/24 00:11 Review of Systems Review of Systems Narrative Review of Systems: Review of system reviewed and within normal limits except mentioned in HPI ED Exam Narrative Physical exam: VITAL SIGNS: Reviewed. GENERAL APPEARANCE: Alert and interactive, follows commands, no acute distress, HEAD AND FACE: Non-traumatic. ENT: PERRL, pink conjunctivitis, eyelid no trauma, Mucous membrane moist. NECK: Supple, nontender, no nuchal rigidity. CHEST: No tenderness, no crepitus, no paradoxical movement, no retractions. LUNGS: Clear, well ventilated, symmetric, no rales, no wheezing, no ronchi, no stridor, good breath sounds bilaterally. HEART: Regular rate, regular rhythm, no murmur, no gallops. ABDOMEN: Soft, positive bowel sounds, nondistended, no guarding, nontender, no rebound, no masses, RECTAL: Deferred. GENITAL: Deferred. NEUROLOGICAL: Gross motor function intact sensory function intact, Appropriate for age. MUSCULOSKELETAL: low back nontender, full range of motion. EXTREMITIES: Nontender, full range of motion. SKIN: Color pink, dry, no rash, no lacerations, no abrasions, no contusions. LYMPHATICS: Deferred. Course Quality Measures none Orders Category Date Time Status Alcohol, Urine Stat Lab 10/27/24 14:09 Completed CBC Stat Lab 10/27/24 15:06 Completed CMP [Comprehensive Metabolic Panel] Stat Lab 10/27/24 15:06 Completed Drug Screen,Urine Stat Lab 10/27/24 14:09 Completed UA, C/S IF [Urinalysis, C/S if Indicated] Stat Lab 10/27/24 14:09 Completed Vital Signs Vital signs: Vital Signs Temperature 98 F 10/27/24 13:16 Pulse Rate 100 10/27/24 13:16 Respiratory Rate 18 10/27/24 13:16 Blood Pressure 123/83 10/27/24 13:16 Pulse Oximetry (%) 100 10/27/24 13:16 Oxygen Delivery Method CPAP 10/27/24 13:16 Psych MDM Narrative MDM Narrative:: 39-year-old male patient with history of drug-induced psychosis, was sent to us from [facility] for 5150 hold. Apparently patient was picked up yesterday and was detained, and today was noted to be not answering questions. And seems bizarre. Was placed on a 5150 hold. On my initial evaluation, patient is answering question appropriately, he denies any suicidal or homicidal ideation. Patient is denying any complaints. Told me that he used meth yesterday. Patient's workup significant for dehydration otherwise unremarkable. Patient is medically cleared for crisis intervention. He was offered food and a lot of water in the ED. Tolerating well. Patient was transferred to [facility]. Patient data External records reviewed:: None Clinical information provided by:: patient and EMS Social determinants that could affect healthcare access:: mental health Patient has the following chronic illnesses:: Drug induced psychosis How is presenting disease/condition affected by chronic disease/condition?: exacerbated by Evaluation data The following diagnostics were reviewed and interpreted by me:: lab results Lab and/or radiology exams considered but not ordered:: None Interpretation Summary: See results MDM Medications / Prescriptions Medications or Prescriptions considered but not ordered:: None Medication administrations:: None Consultations Consultation(s) initiated? (list below): No Diagnosis Psych Differential Diagnosis: acute psychosis, chronic schizophrenia and drug- induced psychotic disorder Most likely diagnosis given after review of the tests above:: Drug induced psychosis Admission Indicated Admission indicated?: indicated Admission Request Was there a request for admission?: No Disposition Plan Disposition Plan: Transfer Discharge Plan Plan Patient Disposition: Xfer Mental Health Facility Discharge Disposition comment: Stable Prescriptions/Referrals Prescriptions/Med Rec: No Action cetirizine-pseudoephedrine [Zyrtec-D] 5-120 mg tablet extended release 12 hr 1 tab PO BID PRN (Reason: sinus symptoms) Qty: 14 0RF diphenhydramine HCl [Benadryl] 25 mg capsule 25 mg PO Q8H PRN (Reason: allergic symptoms) Qty: 30 0RF ibuprofen 600 mg tablet 600 mg PO QID PRN (Reason: pain) Qty: 20 0RF ciprofloxacin HCl [Cipro] 500 mg tablet 500 mg PO BID Qty: 14 0RF metronidazole 500 mg tablet 500 mg PO BID Qty: 14 0RF dicyclomine 20 mg tablet 20 mg PO BID Qty: 20 0RF hydroxyzine HCl 50 mg tablet 50 mg PO Q6H PRN (Reason: anxiety) Qty: 20 0RF amoxicillin-pot clavulanate 875-125 mg tablet 1 tab PO BID Qty: 14 0RF ibuprofen 600 mg tablet 600 mg PO Q8H PRN (Reason: pain) Qty: 30 0RF acetaminophen 325 mg tablet 650 mg PO TID PRN (Reason: pain) Qty: 30 0RF lidocaine [Lidoderm] 5 % adhesive patch,medicated 2 patch topical QDAY PRN (Reason: pain) Qty: 30 0RF Rx Instructions: leave on most painful area for up to 12 hrs ibuprofen 600 mg tablet 600 mg PO Q8H PRN (Reason: pain) Qty: 14 0RF tizanidine 4 mg tablet 4 mg PO BID PRN (Reason: muscle spasticity) Qty: 20 0RF acetaminophen 500 mg tablet 500 mg PO Q6H PRN (Reason: pain) Qty: 30 0RF cyclobenzaprine 7.5 mg tablet 7.5 mg PO TID PRN (Reason: muscle spasm) Qty: 30 0RF hydrocodone-acetaminophen 5-325 mg tablet 1 tab PO BID MDD 10 PRN (Reason: pain) Qty: 14 0RF sumatriptan succinate [Imitrex] 25 mg tablet 25 mg PO Q2H PRN (Reason: migraine headache) Qty: 10 0RF Rx Instructions: do not exceed 8 doses per 24 hrs ondansetron 4 mg tablet,disintegrating 4 mg PO TID PRN (Reason: nausea and vomiting) 30 Days Qty: 10 0RF Referrals: Michael Rudolph MD [Primary Care Provider] - In 1 week Problem List Clinical Impression: Drug-induced psychotic disorder Patient/Caregiver Discharge Instructions Print Language: Malaysian Stand Alone Forms: Selin Award Info., Patient Portal Info Letter
[2024-10-27 13:50] VITALS: BMI 21.2
--- NOTE | 2024-10-27 13:50 | PC.NURSE ---
PATIENT WAS SENT OVER BY [facility] FOR 5150 HOLD. PT DID NOT WANT TO ENGAGE IN CONVERSATION AND APPEARED TO BE ACTING BIZARRE WITH OFFICERS SO THEY DECIDED TO PLACE PT ON A HOLD. PT ANSWERING QUESTIONS APPROPRIATELY. [employer] 15 PT DOES APPEAR TO BE RESPONDING TO INTERNAL STIMULI. STATES HE IS NOT CRAZY BUT HE ADMITS TO HEARING FOOT STEPS BEHIND HIM AND FEELS SOMEONE IS AROUND HIM BUT HE CANT SEE HIM. PT DENIES ANY SI OR HI AT THIS TIME. STATES HE WILL NEVER HURT HIMSELF OR OTHERS. SECURITY CONTACTED TO WAND PT AT THIS TIME. ROOM CLEARED FOR SAFETY. CHART UP TO BE SEEN. SITTER AT BEDSIDE FOR SAFETY.
[2024-10-27 14:27] LABS: Collection Type, Urine Clean Catch
[2024-10-27 14:49] LABS: Bacteria,Urine Rare; Bilirubin,Urine Negative (Negative); Blood,Urine 1+ (Negative); Color,Urine Yellow (Lt Yel-Yel); Culture Indicated,Urine Not Indicated; Glucose, Urine Negative (Negative); Hyaline Casts,Urine 1 /hpf (0-1); Ketones,Urine 1+ (Negative); Leukocyte Esterase,Urine Negative (Negative); Nitrite,Urine Negative (Negative); Protein,Urine 1+ (Neg - Trace); RBC,Urine 2 /hpf (0-3); Specific Gravity,Urine 1.016 (1.001-1.035); Squamous Epithelial Cell,Urine < 1 /hpf (0-5); Urobilinogen,Urine Negative mg/dL (0.0-1.0); WBC,Urine 7 /hpf (0-5)
[2024-10-27 14:55] LABS: Clarity,Urine Hazy (Clear/Hazy)
[2024-10-27 15:01] LABS: Alcohol, Urine Negative (Negative); Amphetamine/Methamp Scrn,U Positive (Negative); Barbiturate Screen,Urine Negative (Negative); Benzodiazepines Screen,Urine Negative (Negative); Benzoylecgonine Screen, Ur Negative (Negative); Fentanyl Screen,Urine Negative (Negative); Opiate Screen,Urine Negative (Negative); THC Screen,Urine Negative (Negative)
[2024-10-27 15:31] LABS: Basophils % (Auto) 0 % (0-2.5); Eosinophils % (Auto) 0 % (0-10); Hematocrit 37.2 % (41.0-53.0); Hemoglobin 13.8 g/dL (13.5-16.0); Immature Granulocytes % (Auto) 0 % (0-0); Immature Granulocytes Auto 0.05 Thou/mm3 (0.00-0.00); Lymphocytes % (Auto) 7 % (10-50); Mean Corpuscular HGB Conc 37.1 g/dl (31.0-37.0); Mean Corpuscular Hemoglobin 31.5 pg (25.0-35.0); Mean Corpuscular Volume 85 fL (80-100); Monocytes # (Auto) 1.3 Thou/mm3 (0.0-0.8); Monocytes % (Auto) 9 % (0-12); Neutrophils # (Auto) 12.2 Thou/mm3 (1.8-7.7); Neutrophils % (Auto) 84 % (37-80); Nucleated Red Blood Cell % 0 /100 WBC (0); Platelet Count 310 Thou/mm3 (140-440); Red Blood Count 4.38 Miln/mm3 (4.50-5.90); White Blood Count 14.6 Thou/mm3 (3.8-10.6)
[2024-10-27 15:49] LABS: Alanine Aminotransferase 38 U/L (10-49); Albumin, Serum 4.8 gm/dL (3.5-5.0); Albumin/Globulin Ratio 2.1 (1.2-2.2); Alkaline Phosphatase 78 U/L (46-116); Anion Gap 19 (7-16); Aspartate Amino Transferase 93 U/L (0-34); BUN/Creatinine Ratio 9 Ratio (12-20); Bilirubin,Total 1.1 mg/dL (0.3-1.2); Blood Urea Nitrogen 22 mg/dL (9-23); Calcium 9.3 mg/dL (8.3-10.6); Calcium (Corrected) 9.3 mg/dL (8.5-10.1); Carbon Dioxide 17.8 mMol/L (20.0-31.0); Chloride 101 mMol/L (98-107); Creatinine (Component) 2.4 mg/dL (0.6-1.3); Estimated Creatinine Clearance 36.8 mL/min (>60); Globulin 2.3 gm/dL (2.3-3.5); Glucose 67 mg/dL (74-106); Osmolality,Calculated 276 (275-295); Potassium 3.6 mMol/L (3.4-5.1); Sodium 138 mMol/L (136-145); Total Protein 7.1 gm/dL (5.7-8.2); eGFR 35 See Note
--- NOTE | 2024-10-27 16:02 | PC.CC ---
Patient is a 39 year-old male BIBA from [facility] on a 5150-hold for [facility] Dis[facility] ASW, Christina and NEUROPSYCHIATRIC AIDE Student, Pat made face to face contact with patient introduced selves, roles, and reason for visit. Patient provided consent for NEUROPSYCHIATRIC AIDE Student to remain in the room during assessment. Patient presents as alert and oriented to self and location. ASW disclosed limits of confidentiality as well. Patient made appropriate eye contact. Patient?s thought process was disorganized, delusional, and bizarre statements. Patient reports visual and auditory hallucinations. Patient reports last night at approximately 9:30pm he went for a run and could hear something chasing him that eventually made him trip. Patient reports he turned his flash light on as he heard the person getting closer to him but did not see anyone. Patient reports that while in his half-way cell he could feel, see, and hear a ?white clear person.? Patient stated, ?The person was saying I am here I am here.? 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 Patient then went on to report he could hear a chainsaw while in the half-way cell. Patient denied past 5150-holds. Patient reports he has never received outpatient mental health services. At the time of encounter patient denied SI/HI/VH/AH. Patient was provided with advisement that he was placed on a 5150-hold by [facility]. Patient was provided with patient's rights handbook. ASW to send referral to LPS facilities via [employer]. ASW provided discharge plan to LPS facility to Dr. Marcial, vocational horticulture instructor Lanise, and bedside NOEMI Damon.
--- NOTE | 2024-10-27 17:26 | PC.ADMIT ---
Patient was accepted to [facility] [address]. Charlee provided accepting information. Patient was provided with accepting information. Dr. Valencia, thermo cementing folder operator Alejandro, and bedside RN Marisol provided with accepting information.
--- NOTE | 2024-10-27 17:30 | PC.CC ---
Patient was accepted by [facility], Dr. [facility], [facility] [address]. Patient was provided with accepting facility information and was receptive. ASW provided update of discharge plan to [facility] to Dr. Valencia, unit tender Alejandro, and bedside NOEMI Damon.
[2024-10-27 18:48] VITALS: BP 130/82; PULSE 87; RESP 18; TEMP 36.6; O2SAT 100
--- NOTE | 2024-10-27 21:18 | PC.NURSE ---
patient leaving facility to [facility]. Patient in stable condition, belongings given to EMS.
== END 2024-10-27 21:09 ==
PROVIDERS: Nurse Practitioner Family; Emergency Provider Emergency Medicine; PCP Family Medicine
DX: Z04.6 Encounter for general psychiatric examination, requested by authority (principal); F19.959 Other psychoactive substance use, unspecified with psychoactive substance-induced psychotic disorder, unspecified
CPT/HCPCS: 36415; 80053; 80307; 80320; 81001; 85025; 96127; 99285; G0480

== ENCOUNTER 2024-11-06 02:44 | Emergency (ER) | payer MEDICAID, SELFPAY ==
[2024-11-06 02:45] VITALS: BP 149/118; PULSE 132; RESP 20; TEMP 36.9; O2SAT 98
[2024-11-06 02:59] VITALS: PULSE 125; RESP 18; O2SAT 100
--- NOTE | 2024-11-06 03:03 | PD.EDSOB ---
ED SOB =RME/HPI General Chief Complaint: Shortness of Breath/Dyspnea Stated Complaint: SOB Time Seen by Provider: 11/06/24 03:00 Arrival date/time: 11/06/24 02:44 This is a case of 39-year-old male who came in in the emergency room due to shortness of breath patient have multiple visit here in the emergency room patient states that he has nonproductive cough and shortness of breath today and feeling anxious persistence of the symptoms this patient decided to sought consult here in the emergency room denies any hallucination denies any suicidal nor homicidal ideation Limitations: no limitations Related Data Previous Rx's ?Medication ?Instructions ?Recorded cetirizine 5 mg-pseudoephedrine ER 1 tab PO BID PRN sinus symptoms 08/30/21 120 mg tablet,extended #14 tabs release,12hr (Zyrtec-D) diphenhydramine HCl 25 mg capsule 25 mg PO Q8H PRN allergic symptoms 09/23/22 (Benadryl) #30 caps ibuprofen 600 mg tablet 600 mg PO QID PRN pain #20 tabs 09/23/22 ciprofloxacin HCl 500 mg tablet 500 mg PO BID #14 tabs 11/29/22 (Cipro) dicyclomine 20 mg tablet 20 mg PO BID #20 tabs 11/29/22 metronidazole 500 mg tablet 500 mg PO BID #14 tabs 11/29/22 cyclobenzaprine 7.5 mg tablet 7.5 mg PO TID PRN muscle spasm #30 12/03/22 tabs hydrocodone 5 mg-acetaminophen 325 1 tab PO BID PRN pain #14 tabs 01/16/23 mg tablet hydroxyzine HCl 50 mg tablet 50 mg PO Q6H PRN anxiety #20 tabs 01/18/24 amoxicillin 875 mg-potassium 1 tab PO BID #14 tabs 02/07/24 clavulanate 125 mg tablet acetaminophen 325 mg tablet 650 mg (2 x 325 mg) PO TID PRN 02/11/24 pain #30 tabs ibuprofen 600 mg tablet 600 mg PO Q8H PRN pain #30 tabs 02/11/24 ibuprofen 600 mg tablet 600 mg PO Q8H PRN pain #14 tabs 02/15/24 lidocaine 5 % topical patch 2 patch topical QDAY PRN pain #30 02/15/24 (Lidoderm) ea acetaminophen 500 mg tablet 500 mg PO Q6H PRN pain #30 tabs 09/15/24 tizanidine 4 mg tablet 4 mg PO BID PRN muscle spasticity 09/15/24 #20 tabs ondansetron 4 mg disintegrating 4 mg PO TID PRN nausea and 10/08/24 tablet vomiting 30 days #10 tabs sumatriptan succinate 25 mg tablet 25 mg PO Q2H PRN migraine headache 10/08/24 (Imitrex) #10 tabs albuterol sulfate 90 mcg/actuation 1 inh inhalation Q4H PRN shortness 11/06/24 aerosol inhaler (Ventolin HFA) of breath or wheezing #8.5 grams hydroxyzine pamoate 25 mg capsule 25 mg PO BID PRN anxiety #10 caps 11/06/24 prednisone 20 mg tablet 20 mg PO QDAY 5 days #5 tabs 11/06/24 Allergies Allergy/AdvReac Type Severity Reaction Status Date / Time No Known Allergies Allergy Verified 10/23/24 00:11 Review of Systems Review of Systems Systems Reviewed: All systems reviewed, normal except as documented Constitutional Constitutional: Reports system reviewed and no additional complaints, except as documented and Reports as per HPI Cardiovascular Cardiovascular: Reports system reviewed and no additional complaints, except as documented, Reports as per HPI, Denies chest pain and Reports dyspnea Respiratory Respiratory: Reports system reviewed and no additional complaints, except as documented, Reports as per HPI, Reports cough and Reports dyspnea Gastrointestinal Gastrointestinal: Reports system reviewed and no additional complaints, except as documented and Reports as per HPI Genitourinary Genitourinary: Denies change in libido Musculoskeletal Musculoskeletal: Reports system reviewed and no additional complaints, except as documented Neurologic Neurologic: Reports system reviewed and no additional complaints, except as documented, Reports as per HPI, Denies behavioral changes, Denies confusion and Denies memory loss Psychiatric Psychiatric: Reports system reviewed and no additional complaints, except as documented, Reports as per HPI, Denies abnormal sleep pattern, Denies anhedonia, Reports anxiety, Denies auditory hallucinations, Denies behavioral changes, Denies change in appetite, Denies change in libido, Denies confusion, Denies depression, Denies difficulty concentrating, Denies hallucinations, Denies homicidal ideation, Denies hopelessness, Denies irritability, Denies memory loss, Denies mood swings, Denies panic attacks, Denies paranoia, Denies suicidal ideation, Denies tactile hallucinations and Denies visual hallucinations Endocrine Endocrine: Denies change in libido Past Medical History Past Medical History NEUROLOGIC: Negative Neurological Disorders or Seizures CARDIAC: Negative Cardiac Disorders or Congestive Heart Failure RESPIRATORY: Negative Chronic Obstructive Pulmonary Disease (COPD) or Asthma GASTROINTESTINAL: Negative Gastrointestinal Disorders GENITOURINARY: Positive Genitourinary Disorders; Negative Renal Disease MUSCULOSKELETAL: Negative Musculoskeletal Disorders ENDOCRINE: Negative Endocrine Disorders, Diabetes Mellitus Type 1 or Diabetes Mellitus Type 2 HEMATOLOGIC: Negative Blood Disorders or Sickle Cell Disease OTHER HISTORY: Positive Chicken Pox; Negative Hospitalization, Blood Transfusions, Blood Transfusion Reaction, Anesthesia Reactions or Cancer Social History SMOKING STATUS: Never smoker SUBSTANCE USE: methamphetamine ED Exam General Limitations: Present no limitations General appearance: Present alert, in no apparent distress and anxious; Absent appears intoxicated, lethargic, obtunded, in distress, obese or cachectic Head Head exam: Present atraumatic Eye Eye exam: Present normal appearance, PERRL and EOMI ENT ENT exam: Present normal exam, normal oropharynx and mucous membranes moist Neck Neck exam: Present normal inspection, full ROM and trachea midline; Absent tenderness, meningismus, lymphadenopathy or thyromegaly Chest Chest inspection: Present normal inspection and symmetric chest wall rise; Absent tenderness Respiratory Respiratory exam: Present normal lung sounds bilaterally; Absent respiratory distress, wheezes, stridor, accessory muscle use or prolonged expiratory phase Cardiovascular Cardiovascular exam: Present regular rate, normal rhythm and normal heart sounds; Absent bradycardia, tachycardia, irregular rhythm or diastolic murmur Abdominal Exam Abdominal exam: Present soft and normal bowel sounds Extremities Exam Extremities exam: Present normal inspection and full ROM Back Exam Back exam: Present normal inspection and full ROM Neurological Exam Neurological exam: Present alert, oriented X3, CN II-XII intact, normal gait and reflexes normal; Absent motor sensory deficit Psychiatric Psychiatric exam: Present normal affect, normal mood and anxious; Absent depressed, agitated, flat affect, manic, homicidal ideation or suicidal ideation Skin Skin exam: Present warm, dry, intact and normal color; Absent rash, cyanosis or diaphoresis Course Quality Measures none Vital Signs Vital signs: Vital Signs Temperature 98.4 F 11/06/24 02:45 Pulse Rate 132 H 11/06/24 02:45 Respiratory Rate 20 11/06/24 02:45 Blood Pressure 149/118 H 11/06/24 02:45 Pulse Oximetry (%) 98 11/06/24 02:45 Oxygen Delivery Method Room Air 11/06/24 02:45 Patient is afebrile patient BP was rechecked initially was 149/1 one 8 repeat BP noted to be 120/85 patient is tachycardic at 132 patient is anxious repeat heart rate by me noted to be 95 patient is not hypoxic oxygen saturation is 98% normal Shortness of Breath / Dyspnea MDM Narrative MDM Narrative:: This is a case of 39-year-old male who came in in the emergency room due to shortness of breath patient have multiple visit here in the emergency room patient states that he has nonproductive cough and shortness of breath today and feeling anxious persistence of the symptoms this patient decided to sought consult here in the emergency room denies any hallucination denies any suicidal nor homicidal ideation patient is awake alert oriented not in distress nontoxic looking patient repeat vital signs done by me BP stable not tachycardic not tachypneic afebrile and nonhypoxic lungs sound is clear no crackles no rales no rales no retraction no stridor heart normal rate regular rhythm no murmur HEENT exam is normal and unremarkable patient is not so much suicidal not homicidal no hallucination mildly anxious at this point I discussed with the patient that I will give medication for anxiety patient was prescribed with Vistaril for anxiety and he should he will follow-up with PCP to be referred to psychiatry psychologist for anxiety patient was also given inhaler and prednisone for acute bronchitis at this point no signs and symptoms of hypoxia no signs and symptoms of sepsis no signs and symptoms of dehydration patient will be discharged home with stable condition Patient was discharged with comfortable condition walking with stable gait. Patient verbalized no further complains explained diagnosis and answered patient question. Patient is comfortable with the proposed management plan including the need to follow up with his/her primary care physician and any specialist if applicable Discussed patient for any urgent condition or worsening sx, He/She needed to go to emergency room immediately or call 911. Patient acknowledge the responsibility to follow up as instructed and to monitor her/his symptoms. For any persistence of the symptoms for more than 3-5 days return precaution advised. Discussed the result of the test and was given printed discharge instruction Patient data External records reviewed:: [facility] previous records Clinical information provided by:: patient Social determinants that could affect healthcare access:: none Patient has the following chronic illnesses:: None How is presenting disease/condition affected by chronic disease/condition?: no chronic disease Evaluation data The following diagnostics were reviewed and interpreted by me:: other (specify) (None) Lab and/or radiology exams considered but not ordered:: None Interpretation Summary: None Medications / Prescriptions Medications or Prescriptions considered but not ordered:: Given Medication administrations:: Given Consultations Consultation(s) initiated? (list below): No Diagnosis Shortness of Breath Differential Diagnosis: other (Acute bronchitis anxiety) Most likely diagnosis given after review of the tests above:: Acute bronchitis anxiety Admission Indicated Admission indicated?: not indicated Explain why admission is indicated or not indicated:: Not indicated Admission Request Was there a request for admission?: No Admission Attestation Admission request attestation: Not indicated Disposition Plan Disposition Plan: Discharge Discharge Attestation Discharge Attestation: The patient and all family members were given an opportunity to ask questions and understood the discharge instructions. Discharge instructions specifically effects, indications for sooner follow up or return to the emergency department, and the expected course of current diagnosis. Patient condition: Stable Discharge Plan Plan Patient Disposition: HOME (Self Care) Patient condition on transfer: Stable Prescriptions/Referrals Prescriptions/Med Rec: New hydroxyzine pamoate 25 mg capsule 25 mg PO BID PRN (Reason: anxiety) Qty: 10 0RF albuterol sulfate [Ventolin HFA] 90 mcg/actuation HFA aerosol inhaler 1 inh inhalation Q4H PRN (Reason: shortness of breath or wheezing) Qty: 8.5 0RF prednisone 20 mg tablet 20 mg PO QDAY 5 Days Qty: 5 0RF No Action cetirizine-pseudoephedrine [Zyrtec-D] 5-120 mg tablet extended release 12 hr 1 tab PO BID PRN (Reason: sinus symptoms) Qty: 14 0RF diphenhydramine HCl [Benadryl] 25 mg capsule 25 mg PO Q8H PRN (Reason: allergic symptoms) Qty: 30 0RF ibuprofen 600 mg tablet 600 mg PO QID PRN (Reason: pain) Qty: 20 0RF ciprofloxacin HCl [Cipro] 500 mg tablet 500 mg PO BID Qty: 14 0RF metronidazole 500 mg tablet 500 mg PO BID Qty: 14 0RF dicyclomine 20 mg tablet 20 mg PO BID Qty: 20 0RF hydroxyzine HCl 50 mg tablet 50 mg PO Q6H PRN (Reason: anxiety) Qty: 20 0RF amoxicillin-pot clavulanate 875-125 mg tablet 1 tab PO BID Qty: 14 0RF ibuprofen 600 mg tablet 600 mg PO Q8H PRN (Reason: pain) Qty: 30 0RF acetaminophen 325 mg tablet 650 mg PO TID PRN (Reason: pain) Qty: 30 0RF lidocaine [Lidoderm] 5 % adhesive patch,medicated 2 patch topical QDAY PRN (Reason: pain) Qty: 30 0RF Rx Instructions: leave on most painful area for up to 12 hrs ibuprofen 600 mg tablet 600 mg PO Q8H PRN (Reason: pain) Qty: 14 0RF tizanidine 4 mg tablet 4 mg PO BID PRN (Reason: muscle spasticity) Qty: 20 0RF acetaminophen 500 mg tablet 500 mg PO Q6H PRN (Reason: pain) Qty: 30 0RF cyclobenzaprine 7.5 mg tablet 7.5 mg PO TID PRN (Reason: muscle spasm) Qty: 30 0RF hydrocodone-acetaminophen 5-325 mg tablet 1 tab PO BID MDD 10 PRN (Reason: pain) Qty: 14 0RF sumatriptan succinate [Imitrex] 25 mg tablet 25 mg PO Q2H PRN (Reason: migraine headache) Qty: 10 0RF Rx Instructions: do not exceed 8 doses per 24 hrs ondansetron 4 mg tablet,disintegrating 4 mg PO TID PRN (Reason: nausea and vomiting) 30 Days Qty: 10 0RF Problem List Clinical Impression: Acute bronchitis, Anxiety Patient/Caregiver Discharge Instructions Education Materials: Acute Bronchitis, ED Anxiety Reaction Additional Instructions: Follow-up with your primary care physician in 2 days for reevaluation and to be referred to psychiatry psychologist for your anxiety for any recurrence persistent worsening symptoms or any emergent concern call 911 or go to the nearest emergency room take your medication as directed keep hydrated Print Language: Vietnamese Stand Alone Forms: Selin Award Info., Patient Portal Info Letter 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
[2024-11-06 03:53] VITALS: BP 148/110; PULSE 117; RESP 18; TEMP 37.1; O2SAT 98
--- NOTE | 2024-11-06 04:42 | PC.NURSE ---
PROVIDER RODRIGUEZ AWARE OF PT CURRENT VITALS, OK TO DC
== END 2024-11-06 04:43 | disposition home or self-care (01) ==
LOC: SERX 04:03
PROVIDERS: Emergency Provider Emergency Medicine; PCP Family Medicine
DX: J20.9 Acute bronchitis, unspecified (principal); F41.9 Anxiety disorder, unspecified
CPT/HCPCS: 99281

== ENCOUNTER 2024-11-07 23:38 | Emergency (ER) | payer MEDICAID, SELFPAY ==
[2024-11-07 23:41] VITALS: BP 135/89; PULSE 116; RESP 18; TEMP 37; O2SAT 97
[2024-11-07 23:44] VITALS: PULSE 115; RESP 20; O2SAT 98
--- NOTE | 2024-11-07 23:45 | PD.EDCHEST ---
ED Chest Pain RME/HPI General Chief Complaint: Chest Pain Stated Complaint: CHEST PAIN Time Seen by Provider: 11/08/24 00:04 Arrival date/time: 11/07/24 23:38 RME / HPI RME / HPI narrative: This section includes all my notes and documentations, including HPI, PE, and ED course. Boston Lara MD HPI: 39yo male here with multiple symptoms. Including intense fear, pounding and racing heart, sweating, chills, shaking, trouble breathing, chest pain, stomach pain, nausea, numbness and tingling in the hands and feet and face, confusion, hot flashes, and feeling faint. No other complaints. ROS: All negative except as documented in HPI. Physical Exam: General: Alert and oriented. Anxious. Eyes: Conjunctivae and lids clear. ENT: No nasal congestion. Neck: Supple. Heart: Sinus tachycardia noted. Lungs: No respiratory distress. Good air movement. No rhonchi, wheezing, rales. Abdomen: Soft and nontender. Skin: Warm and dry. Neuro: Alert and oriented X 3. I reviewed EMS notes. I reviewed all diagnostic test results. My interpretation of the EKG is NSR with nonspecific ST-T changes. Blood tests are unremarkable. At this point, diagnoses include methamphetamine intoxication. Treatment here included Metoprolol. Significant improvement noted. Recommended more outpatient cardiac workup. Based on my best medical judgment, made decision no further evaluation or treatment indicated at this time. Patient understands and agrees to the discharge instructions customized and printed, see below. Discharge instructions from Dr. Lara: 1. After extensive evaluation, there is no life-threatening condition.? Such as heart attack or pulmonary embolism (blood clots in your lungs). 2. Your symptoms methamphetamine intoxication. 3. Stop all drugs at all cost to prevent severe and even potentially fatal injuries and illnesses. 4. See a private doctor on 11/09/2024 for recheck and further care. To make sure there is no serious underlying heart condition, ask to help you get more tests for your heart that cannot be done here in the ER.? Such as Holter Monitor (cardiac monitoring at home from a day to even a month), heart stress test (on treadmill or with medication), echocardiogram (imaging of your heart structures), heart catherization (checking for blockages in your heart arteries), and a referral to see a Pulley Worker. 5. Seek immediate medical care with worsening or with any concerns.?? Boston Lara MD Related Data Previous Rx's ?Medication ?Instructions ?Recorded cetirizine 5 mg-pseudoephedrine ER 1 tab PO BID PRN sinus symptoms 08/30/21 120 mg tablet,extended #14 tabs release,12hr (Zyrtec-D) diphenhydramine HCl 25 mg capsule 25 mg PO Q8H PRN allergic symptoms 09/23/22 (Benadryl) #30 caps ibuprofen 600 mg tablet 600 mg PO QID PRN pain #20 tabs 09/23/22 ciprofloxacin HCl 500 mg tablet 500 mg PO BID #14 tabs 11/29/22 (Cipro) dicyclomine 20 mg tablet 20 mg PO BID #20 tabs 11/29/22 metronidazole 500 mg tablet 500 mg PO BID #14 tabs 11/29/22 cyclobenzaprine 7.5 mg tablet 7.5 mg PO TID PRN muscle spasm #30 12/03/22 tabs hydrocodone 5 mg-acetaminophen 325 1 tab PO BID PRN pain #14 tabs 01/16/23 mg tablet hydroxyzine HCl 50 mg tablet 50 mg PO Q6H PRN anxiety #20 tabs 01/18/24 amoxicillin 875 mg-potassium 1 tab PO BID #14 tabs 02/07/24 clavulanate 125 mg tablet acetaminophen 325 mg tablet 650 mg (2 x 325 mg) PO TID PRN 02/11/24 pain #30 tabs ibuprofen 600 mg tablet 600 mg PO Q8H PRN pain #30 tabs 02/11/24 ibuprofen 600 mg tablet 600 mg PO Q8H PRN pain #14 tabs 02/15/24 lidocaine 5 % topical patch 2 patch topical QDAY PRN pain #30 02/15/24 (Lidoderm) ea acetaminophen 500 mg tablet 500 mg PO Q6H PRN pain #30 tabs 09/15/24 tizanidine 4 mg tablet 4 mg PO BID PRN muscle spasticity 09/15/24 #20 tabs sumatriptan succinate 25 mg tablet 25 mg PO Q2H PRN migraine headache 10/08/24 (Imitrex) #10 tabs albuterol sulfate 90 mcg/actuation 1 inh inhalation Q4H PRN shortness 11/06/24 aerosol inhaler (Ventolin HFA) of breath or wheezing #8.5 grams hydroxyzine pamoate 25 mg capsule 25 mg PO BID PRN anxiety #10 caps 11/06/24 prednisone 20 mg tablet 20 mg PO QDAY 5 days #5 tabs 11/06/24 Allergies Allergy/AdvReac Type Severity Reaction Status Date / Time No Known Allergies Allergy Verified 10/23/24 00:11 Review of Systems Review of Systems Systems Reviewed: All systems reviewed, normal except as documented Past Medical History Past Medical History NEUROLOGIC: Negative Neurological Disorders or Seizures CARDIAC: Negative Cardiac Disorders or Congestive Heart Failure RESPIRATORY: Negative Chronic Obstructive Pulmonary Disease (COPD) or Asthma GASTROINTESTINAL: Negative Gastrointestinal Disorders GENITOURINARY: Positive Genitourinary Disorders; Negative Renal Disease MUSCULOSKELETAL: Negative Musculoskeletal Disorders ENDOCRINE: Negative Endocrine Disorders, Diabetes Mellitus Type 1 or Diabetes Mellitus Type 2 HEMATOLOGIC: Negative Blood Disorders or Sickle Cell Disease OTHER HISTORY: Positive Chicken Pox; Negative Hospitalization, Blood Transfusions, Blood Transfusion Reaction, Anesthesia Reactions or Cancer Social History SMOKING STATUS: Never smoker SUBSTANCE USE: methamphetamine ED Exam Narrative Physical exam: As noted in HPI. Course Course Course Narrative: CXR is ordered for determining the etiology of chest pain. Quality Measures none Orders Category Date Time Status Straight [In and Out Catheter] X1 Care 11/07/24 23:47 Active BMP [Basic Metabolic Panel] Stat Lab 11/07/24 00:01 Completed BNP [B-Type Natriuretic Peptide] Stat Lab 11/07/24 00:01 Completed CBC Stat Lab 11/07/24 00:01 Completed D-Dimer Stat Lab 11/07/24 00:01 Completed Magnesium Stat Lab 11/07/24 00:01 Completed Troponin I Stat Lab 11/07/24 00:01 Completed Metoprolol Tartrate [Lopressor] Med 11/07/24 23:47 Discontinued 25 mg PO X1 ONE Vital Signs Vital signs: Vital Signs Temperature 98.6 F 11/07/24 23:41 Pulse Rate 116 H 11/07/24 23:41 Respiratory Rate 18 11/07/24 23:41 Blood Pressure 135/89 H 11/07/24 23:41 Pulse Oximetry (%) 97 11/07/24 23:41 Oxygen Delivery Method Room Air 11/07/24 23:41 Chest Pain MDM Narrative MDM Narrative:: Scribe Attestation: 11/07/24 Tyra Segovia am scribing for and in the presence of Dr. Lara. 39yo male here with multiple symptoms. Including intense fear, pounding and racing heart, sweating, chills, shaking, trouble breathing, chest pain, stomach pain, nausea, numbness and tingling in the hands and feet and face, confusion, hot flashes, and feeling faint. No other complaints. Patient data External records reviewed:: [facility] previous records (Per chart review, patient was seen here yesterday for bronchitis.) and EMS form Clinical information provided by:: patient Social determinants that could affect healthcare access:: substance use Patient has the following chronic illnesses:: none How is presenting disease/condition affected by chronic disease/condition?: no chronic disease Evaluation data The following diagnostics were reviewed and interpreted by me:: lab results, radiology exam(s) and EKG tracing(s) (My interpretation of the EKG is: Sinus tachycardia (110 bpm) with nonspecific ST-T changes. Boston Lara MD) Lab and/or radiology exams considered but not ordered:: none Interpretation Summary: I reviewed all diagnostic test results. My interpretation of the EKG is NSR with nonspecific ST-T changes. Blood tests are unremarkable. Medications / Prescriptions Medications or Prescriptions considered but not ordered:: none Medication administrations:: Medication Administration History Discontinued Medications Metoprolol Tartrate (Metoprolol Tartrate 25 Mg Tablet) 25 mg PO X1 ONE Stop: 11/07/24 23:48 Last Admin: 11/08/24 00:34 Dose: 25 mg Documented By: BARBARA metoprolol Consultations Consultation(s) initiated? (list below): No Diagnosis Chest Pain Differential Diagnosis: stable angina, unstable angina pectoris, atypical chest pain, st elevation myocardial infarction, costochondritis and other (Anxiety, drug intoxication) Most likely diagnosis given after review of the tests above:: methamphetamine intoxication Admission Indicated Admission indicated?: not indicated Explain why admission is indicated or not indicated:: With significant improvement and no condition needing emergent intervention, there was no indication for admission. Admission Request Was there a request for admission?: No Disposition Plan Disposition Plan: Discharge Discharge Attestation Discharge Attestation: The patient and all family members were given an opportunity to ask questions and understood the discharge instructions. Discharge instructions specifically effects, indications for sooner follow up or return to the emergency department, and the expected course of current diagnosis. Patient condition: Stable Discharge Plan Plan Patient Disposition: HOME (Self Care) Prescriptions/Referrals Prescriptions/Med Rec: No Action cetirizine-pseudoephedrine [Zyrtec-D] 5-120 mg tablet extended release 12 hr 1 tab PO BID PRN (Reason: sinus symptoms) Qty: 14 0RF diphenhydramine HCl [Benadryl] 25 mg capsule 25 mg PO Q8H PRN (Reason: allergic symptoms) Qty: 30 0RF ibuprofen 600 mg tablet 600 mg PO QID PRN (Reason: pain) Qty: 20 0RF ciprofloxacin HCl [Cipro] 500 mg tablet 500 mg PO BID Qty: 14 0RF metronidazole 500 mg tablet 500 mg PO BID Qty: 14 0RF dicyclomine 20 mg tablet 20 mg PO BID Qty: 20 0RF hydroxyzine HCl 50 mg tablet 50 mg PO Q6H PRN (Reason: anxiety) Qty: 20 0RF amoxicillin-pot clavulanate 875-125 mg tablet 1 tab PO BID Qty: 14 0RF ibuprofen 600 mg tablet 600 mg PO Q8H PRN (Reason: pain) Qty: 30 0RF acetaminophen 325 mg tablet 650 mg PO TID PRN (Reason: pain) Qty: 30 0RF lidocaine [Lidoderm] 5 % adhesive patch,medicated 2 patch topical QDAY PRN (Reason: pain) Qty: 30 0RF Rx Instructions: leave on most painful area for up to 12 hrs ibuprofen 600 mg tablet 600 mg PO Q8H PRN (Reason: pain) Qty: 14 0RF tizanidine 4 mg tablet 4 mg PO BID PRN (Reason: muscle spasticity) Qty: 20 0RF acetaminophen 500 mg tablet 500 mg PO Q6H PRN (Reason: pain) Qty: 30 0RF hydroxyzine pamoate 25 mg capsule 25 mg PO BID PRN (Reason: anxiety) Qty: 10 0RF albuterol sulfate [Ventolin HFA] 90 mcg/actuation HFA aerosol inhaler 1 inh inhalation Q4H PRN (Reason: shortness of breath or wheezing) Qty: 8.5 0RF prednisone 20 mg tablet 20 mg PO QDAY 5 Days Qty: 5 0RF cyclobenzaprine 7.5 mg tablet 7.5 mg PO TID PRN (Reason: muscle spasm) Qty: 30 0RF hydrocodone-acetaminophen 5-325 mg tablet 1 tab PO BID MDD 10 PRN (Reason: pain) Qty: 14 0RF sumatriptan succinate [Imitrex] 25 mg tablet 25 mg PO Q2H PRN (Reason: migraine headache) Qty: 10 0RF Rx Instructions: do not exceed 8 doses per 24 hrs Referrals: Michael Rudolph MD [Primary Care Provider] - In 1 week Problem List Clinical Impression: Methamphetamine intoxication Patient/Caregiver Discharge Instructions Discharge Activity: activity as tolerated Education Materials: Understanding Methamphetamine ..., ED Drug Abuse Additional Instructions: Discharge instructions from Dr. Lara: 1. After extensive evaluation, there is no life-threatening condition.? Such as heart attack or pulmonary embolism (blood clots in your lungs). 2. Your symptoms methamphetamine intoxication. 3. Stop all drugs at all cost to prevent severe and even potentially fatal injuries and illnesses. 4. See a private doctor on 11/09/2024 for recheck and further care. To make sure there is no serious underlying heart condition, ask to help you get more tests for your heart that cannot be done here in the ER.? Such as Holter Monitor (cardiac monitoring at home from a day to even a month), heart stress test (on treadmill or with medication), echocardiogram (imaging of your heart structures), heart catherization (checking for blockages in your heart arteries), and a referral to see a Pulley Worker. 5. Seek immediate medical care with worsening or with any concerns.?? Print Language: Slovenian Stand Alone Forms: [employer] Award Info., Patient Portal Info Letter
[2024-11-07 23:48] VITALS: BMI 21.1
[2024-11-08 00:10] LABS: Basophils # (Auto) 0.0 Thou/mm3 (0.0-0.2); Basophils % (Auto) 0 % (0-2.5); Eosinophils # (Auto) 0.1 Thou/mm3 (0.0-0.5); Eosinophils % (Auto) 1 % (0-10); Hematocrit 43.8 % (41.0-53.0); Hemoglobin 14.6 g/dL (13.5-16.0); Immature Granulocytes Auto 0.02 Thou/mm3 (0.00-0.00); Lymphocytes # (Auto) 1.9 Thou/mm3 (1.0-4.8); Lymphocytes % (Auto) 22 % (10-50); Mean Corpuscular HGB Conc 33.3 g/dl (31.0-37.0); Mean Corpuscular Hemoglobin 30.9 pg (25.0-35.0); Mean Corpuscular Volume 93 fL (80-100); Monocytes # (Auto) 0.6 Thou/mm3 (0.0-0.8); Monocytes % (Auto) 7 % (0-12); Neutrophils # (Auto) 6.0 Thou/mm3 (1.8-7.7); Neutrophils % (Auto) 69 % (37-80); Nucleated Red Blood Cell # 0.00 Thou/mm3 (0.00-0.00); Nucleated Red Blood Cell % 0 /100 WBC (0); Platelet Count 425 Thou/mm3 (140-440); RDW Standard Deviation 43.7 fL (35.1-43.9); Red Blood Count 4.73 Miln/mm3 (4.50-5.90); White Blood Count 8.6 Thou/mm3 (3.8-10.6)
[2024-11-08 00:30] LABS: B-Type Natriuretic Peptide < 20 pg/mL (0-100)
[2024-11-08 00:32] LABS: Anion Gap 10 (7-16); BUN/Creatinine Ratio 9 Ratio (12-20); Blood Urea Nitrogen 11 mg/dL (9-23); Calcium 9.4 mg/dL (8.3-10.6); Carbon Dioxide 26.2 mMol/L (20.0-31.0); Chloride 104 mMol/L (98-107); Creatinine (Component) 1.2 mg/dL (0.6-1.3); Estimated Creatinine Clearance 73.0 mL/min (>60); Glucose 120 mg/dL (74-106); Magnesium 2.1 mg/dL (1.6-2.6); Osmolality,Calculated 279 (275-295); Potassium 4.0 mMol/L (3.4-5.1); Sodium 140 mMol/L (136-145); Troponin I 0.025 ng/mL (0.0-0.045); eGFR > 60 See Note
[2024-11-08 00:34] VITALS: BP 140/90; PULSE 105
[2024-11-08] MEDS: METOPROLOL TARTRATE 25 MG TABLET PO (00:34)
[2024-11-08 00:41] LABS: D-Dimer < 250 ng/mL (<600)
[2024-11-08 01:53] VITALS: BP 135/72; PULSE 72; RESP 16; TEMP 36.8; O2SAT 98
== END 2024-11-08 01:54 | disposition home or self-care (01) ==
PROVIDERS: Emergency Provider Emergency Medicine; PCP Family Medicine
DX: F15.129 Other stimulant abuse with intoxication, unspecified (principal)
CPT/HCPCS: 36415; 80048; 83735; 83880; 84484; 85025; 85379; 99283; A9270

== ENCOUNTER 2024-11-08 03:31 | Emergency (ER) | payer MEDICAID, SELFPAY ==
--- NOTE | 2024-11-08 03:34 | EKG_ITS ---
[facility] Test Date: 2024-11-08 Pat Name: DAIANA MEDINA Department: Room: - Gender: Male [employer]: : 1985 Requested By: Boston Manzano Order Number: [id number] Reading MD: Boston Manzano Measurements Intervals [place] Rate: 96 P: 76 MA: 160 QRS: 77 QRSD: 97 T: 95 QT: 370 QTc: 469 Interpretive Statements SINUS RHYTHM ST ELEVATION, PROBABLY EARLY REPOLARIZATION [ST ELEVATION WITH NORMALLY INFLECTED T-WAVE] ST DEVIATION AND MARKED T-WAVE ABNORMALITY, CONSIDER ANTEROLATERAL ISCHEMIA [-0.5+ mV T-WAVE IN I/aVL/V3-V6] Compared to ECG 10/27/2024 01:15:48 ST (T wave) deviation now present Early repolarization now present T-wave abnormality now present Possible ischemia now present Sinus tachycardia no longer present /store/[id number].pdf
--- NOTE | 2024-11-08 03:43 | EDNOTE_ITS ---
ED Chest Pain RME/HPI General Chief Complaint: Chest Pain Stated Complaint: CHEST PAIN Arrival date/time: 11/08/24 03:31 RME / HPI RME / HPI narrative: This section includes all my notes and documentations, including HPI, PE, and ED course. Boston Lara MD HPI: 39-year-old male here to be evaluated with chest pain. I saw him several hours ago. The following is my HPI from previous visit: 39yo male here with multiple symptoms. Including intense fear, pounding and racing heart, sweating, chills, shaking, trouble breathing, chest pain, stomach pain, nausea, numbness and tingling in the hands and feet and face, confusion, hot flashes, and feeling faint. No other complaints. Patient was discharged with diagnosis of methamphetamine intoxication after improving with oral metoprolol. He used more methamphetamine and walked to local restaurant. With more chest pain, he called EMS. ROS: All negative except as documented in HPI. Physical Exam: General: Alert and oriented. Appears anxious. Eyes: Conjunctivae and lids clear. ENT: No nasal congestion. Neck: Supple. Heart: RRR. Lungs: No respiratory distress. Good air movement. No rhonchi, wheezing, rales. Abdomen: Soft and nontender. Skin: Warm and dry. Neuro: Alert and oriented X 3. I reviewed EMS notes. I reviewed all diagnostic test results. My interpretation of the EKG is sinus rhythm. Blood tests are unremarkable. UDS positive for methamphetamine. At this point, diagnoses include anxiety and methamphetamine intoxication. Treatment here included Xanax. Significant improvement noted. Recommended more outpatient cardiac workup. Based on my best medical judgment, made decision no further evaluation or treatment indicated at this time. Patient understands and agrees to the discharge instructions customized and printed, see below. Discharge instructions from Dr. Lara: 1. After extensive evaluation, there is no life-threatening condition.? Such as heart attack or pulmonary embolism (blood clots in your lungs). 2. Your symptoms methamphetamine intoxication. 3. Stop all drugs at all cost to prevent severe and even potentially fatal injuries and illnesses. 4. See a private doctor on 11/09/2024 for recheck and further care. To make sure there is no serious underlying heart condition, ask to help you get more tests for your heart that cannot be done here in the ER.? Such as Holter Monitor (cardiac monitoring at home from a day to even a month), heart stress test (on treadmill or with medication), echocardiogram (imaging of your heart structures), heart catherization (checking for blockages in your heart arteries), and a referral to see a Biology Department Chair. 5. Seek immediate medical care with worsening or with any concerns.?? Boston Lara MD Related Data Previous Rx's ?Medication ?Instructions ?Recorded cetirizine 5 mg-pseudoephedrine ER 1 tab PO BID PRN si nus symptoms 08/30/21 120 mg tablet,extended #14 tabs release,12hr (Zyrtec-D) diphenhydramine HCl 25 mg capsule 25 mg PO Q8H PRN all ergic symptoms 09/23/22 (Benadryl) #30 caps ibuprofen 600 mg tablet 600 mg PO QID PRN pain #20 t abs 09/23/22 ciprofloxacin HCl 500 mg tablet 500 mg PO BID #14 tabs 11/29/22 (Cipro) dicyclomine 20 mg tablet 20 mg PO BID #20 tabs metronidazole 500 mg tablet 500 mg PO BID #14 tabs cyclobenzaprine 7.5 mg tablet 7.5 mg PO TID PRN muscle spasm #30 12/03/22 tabs hydrocodone 5 mg-acetaminophen 325 1 tab PO BID PRN pa in #14 tabs 01/16/23 mg tablet hydroxyzine HCl 50 mg tablet 50 mg PO Q6H PRN anxiety #20 tabs 01/18/24 amoxicillin 875 mg-potassium 1 tab PO BID #14 tabs 09/25 clavulanate 125 mg tablet acetaminophen 325 mg tablet 650 mg (2 x 325 mg) PO TID PRN 02/11/24 pain #30 tabs ibuprofen 600 mg tablet 600 mg PO Q8H PRN pain #30 t abs 02/11/24 ibuprofen 600 mg tablet 600 mg PO Q8H PRN pain #14 t abs 02/15/24 lidocaine 5 % topical patch 2 patch topical QDAY PRN p ain #30 02/15/24 (Lidoderm) ea acetaminophen 500 mg tablet 500 mg PO Q6H PRN pain #30 tabs 09/15/24 tizanidine 4 mg tablet 4 mg PO BID PRN muscle spast icity 09/15/24 #20 tabs sumatriptan succinate 25 mg tablet 25 mg PO Q2H PRN mi graine headache 10/08/24 (Imitrex) #10 tabs albuterol sulfate 90 mcg/actuation 1 inh inhalation Q4 H PRN shortness 11/06/24 aerosol inhaler (Ventolin HFA) of breath or wheezing # 8.5 grams hydroxyzine pamoate 25 mg capsule 25 mg PO BID PRN anx iety #10 caps 11/06/24 prednisone 20 mg tablet 20 mg PO QDAY 5 days #5 tabs 11/06/24 Allergies Allergy/AdvReac Type Severity Reaction Status Date / Time No Known Allergies Allergy Verified 11/08/24 03:44 Review of Systems Review of Systems Systems Reviewed: All systems reviewed, normal except as documented ED Exam Narrative Physical exam: As noted in HPI. Course Quality Measures none Orders Category Date Time Status EKG (ED ONLY) *Do not use* NOW Care 11/08/24 03:34 Completed Straight [In and Out Catheter] X1 Care 11/08/24 03:34 Active EKG (ED Only) Stat Exams 11/08/24 03:34 Draft BMP [Basic Metabolic Panel] Stat Lab 11/08/24 04:42 Completed CBC Stat Lab 11/08/24 04:42 Completed Drug Screen,Urine Stat Lab 11/08/24 04:05 Completed Magnesium Stat Lab 11/08/24 04:42 Completed Troponin I Stat Lab 11/08/24 04:42 Completed ALPRazoLAM [Xanax] Med 11/08/24 04:34 Discontinued 0.5 mg PO X1 ONE Vital Signs Vital signs: Vital Signs Temperature 98.0 F 11/08/24 03:46 Pulse Rate 100 11/08/24 03:46 Respiratory Rate 20 11/08/24 03:46 Blood Pressure 120/91 H 11/08/24 03:46 Pulse Oximetry (%) 95 11/08/24 03:46 Oxygen Delivery Method Room Air 11/08/24 03:46 Chest Pain MDM Narrative MDM Narrative:: 39-year-old male here to be evaluated with chest pain. I saw him several hours ago. The following is my HPI from previous visit: 39yo male here with multiple symptoms. Including intense fear, pounding and racing heart, sweating, chills, shaking, trouble breathing, chest pain, stomach pain, nausea, numbness and tingling in the hands and feet and face, confusion, hot flashes, and feeling faint. No other complaints. Patient was discharged with diagnosis of methamphetamine intoxication after improving with oral metoprolol. He used more methamphetamine and walked to local restaurant. With more chest pain, he called EMS. Patient data External records reviewed:: [facility] previous records (Per chart review, patient was seen here earlier tonight for methamphetamine intoxication.) and EMS form Clinical information provided by:: patient Social determinants that could affect healthcare access:: substance use Patient has the following chronic illnesses:: none How is presenting disease/condition affected by chronic disease/condition?: no chronic disease Evaluation data The following diagnostics were reviewed and interpreted by me:: lab results and EKG tracing(s) Lab and/or radiology exams considered but not ordered:: none Interpretation Summary: My interpretation of the lab results remarkable for negative troponin and positive UDS for methamphetamine. Medications / Prescriptions Medications or Prescriptions considered but not ordered:: none Medication administrations:: Medication Administration History Discontinued Medications Alprazolam (Alprazolam 0.25 Mg Tablet) 0.5 mg PO X1 ONE Stop: 11/08/24 04:35 Last Admin: 11/08/24 05:02 Dose: 0.5 mg Documented By: BARBARA Cordero Consultations Consultation(s) initiated? (list below): No Diagnosis Chest Pain Differential Diagnosis: stable angina, unstable angina pectoris, atypical chest pain, st elevation myocardial infarction and other (Anxiety and methamphetamine intoxication) Most likely diagnosis given after review of the tests above:: Anxiety and methamphetamine tox occasion Admission Indicated Admission indicated?: not indicated Explain why admission is indicated or not indicated:: With significant treatment, there was no indication for admission. Admission Request Was there a request for admission?: No Disposition Plan Disposition Plan: Discharge Discharge Attestation Discharge Attestation: The patient and all family members were given an opportunity to ask questions and understood the discharge instructions. Discharge instructions specifically effects, indications for sooner follow up or return to the emergency department, and the expected course of current diagnosis. Patient condition: Stable Discharge Plan Plan Patient Disposition: HOME (Self Care) Prescriptions/Referrals Prescriptions/Med Rec: No Action cetirizine-pseudoephedrine [Zyrtec-D] 5-120 mg tablet extended release 12 hr 1 tab PO BID PRN (Reason: sinus symptoms) Qty: 14 0RF diphenhydramine HCl [Benadryl] 25 mg capsule 25 mg PO Q8H PRN (Reason: allergic symptoms) Qty: 30 0RF ibuprofen 600 mg tablet 600 mg PO QID PRN (Reason: pain) Qty: 20 0RF ciprofloxacin HCl [Cipro] 500 mg tablet 500 mg PO BID Qty: 14 0RF metronidazole 500 mg tablet 500 mg PO BID Qty: 14 0RF dicyclomine 20 mg tablet 20 mg PO BID Qty: 20 0RF hydroxyzine HCl 50 mg tablet 50 mg PO Q6H PRN (Reason: anxiety) Qty: 20 0RF amoxicillin-pot clavulanate 875-125 mg tablet 1 tab PO BID Qty: 14 0RF ibuprofen 600 mg tablet 600 mg PO Q8H PRN (Reason: pain) Qty: 30 0RF acetaminophen 325 mg tablet 650 mg PO TID PRN (Reason: pain) Qty: 30 0RF lidocaine [Lidoderm] 5 % adhesive patch,medicated 2 patch topical QDAY PRN (Reason: pain) Qty: 30 0RF Rx Instructions: leave on most painful area for up to 12 hrs ibuprofen 600 mg tablet 600 mg PO Q8H PRN (Reason: pain) Qty: 14 0RF tizanidine 4 mg tablet 4 mg PO BID PRN (Reason: muscle spasticity) Qty: 20 0RF acetaminophen 500 mg tablet 500 mg PO Q6H PRN (Reason: pain) Qty: 30 0RF hydroxyzine pamoate 25 mg capsule 25 mg PO BID PRN (Reason: anxiety) Qty: 10 0RF albuterol sulfate [Ventolin HFA] 90 mcg/actuation HFA aerosol inhaler 1 inh inhalation Q4H PRN (Reason: shortness of breath or wheezing) Qty: 8.5 0RF prednisone 20 mg tablet 20 mg PO QDAY 5 Days Qty: 5 0RF cyclobenzaprine 7.5 mg tablet 7.5 mg PO TID PRN (Reason: muscle spasm) Qty: 30 0RF hydrocodone-acetaminophen 5-325 mg tablet 1 tab PO BID MDD 10 PRN (Reason: pain) Qty: 14 0RF sumatriptan succinate [Imitrex] 25 mg tablet 25 mg PO Q2H PRN (Reason: migraine headache) Qty: 10 0RF Rx Instructions: do not exceed 8 doses per 24 hrs Referrals: No Primary/Family,Physician [Primary Care Provider] - In 1 week Problem List Clinical Impression: Methamphetamine intoxication Patient/Caregiver Discharge Instructions Discharge Activity: activity as tolerated Education Materials: Understanding Methamphetamine ..., ED Chest Pain, Uncertain Cause, ED Drug Abuse Additional Instructions: Discharge instructions from Dr. Lara: 1. After extensive evaluation, there is no life-threatening condition.? Such as heart attack or pulmonary embolism (blood clots in your lungs). 2. Your symptoms methamphetamine intoxication. 3. Stop all drugs at all cost to prevent severe and even potentially fatal injuries and illnesses. 4. See a private doctor on 11/09/2024 for recheck and further care. To make sure there is no serious underlying heart condition, ask to help you get more tests for your heart that cannot be done here in the ER.? Such as Holter Monitor (cardiac monitoring at home from a day to even a month), heart stress test (on treadmill or with medication), echocardiogram (imaging of your heart structures), heart catherization (checking for blockages in your heart arteries), and a referral to see a Biology Department Chair. 5. Seek immediate medical care with worsening or with any concerns.?? Print Language: Com[place]an Stand Alone Forms: [employer] Award Info., Patient Portal Info Letter
[2024-11-08 03:46] VITALS: BP 120/91; PULSE 100; RESP 20; TEMP 36.7; O2SAT 95
[2024-11-08 03:49] VITALS: PULSE 107; RESP 20; O2SAT 100; BMI 29.5
[2024-11-08 04:29] LABS: Amphetamine/Methamp Scrn,U Positive (Negative); Barbiturate Screen,Urine Negative (Negative); Benzodiazepines Screen,Urine Negative (Negative); Benzoylecgonine Screen, Ur Negative (Negative); Fentanyl Screen,Urine Negative (Negative); Opiate Screen,Urine Negative (Negative); THC Screen,Urine Negative (Negative)
[2024-11-08 04:49] LABS: Basophils # (Auto) 0.0 Thou/mm3 (0.0-0.2); Basophils % (Auto) 0 % (0-2.5); Eosinophils # (Auto) 0.1 Thou/mm3 (0.0-0.5); Eosinophils % (Auto) 1 % (0-10); Hematocrit 41.7 % (41.0-53.0); Hemoglobin 14.4 g/dL (13.5-16.0); Immature Granulocytes Auto 0.02 Thou/mm3 (0.00-0.00); Lymphocytes # (Auto) 1.4 Thou/mm3 (1.0-4.8); Lymphocytes % (Auto) 19 % (10-50); Mean Corpuscular HGB Conc 34.5 g/dl (31.0-37.0); Mean Corpuscular Hemoglobin 30.8 pg (25.0-35.0); Mean Corpuscular Volume 89 fL (80-100); Monocytes # (Auto) 0.6 Thou/mm3 (0.0-0.8); Monocytes % (Auto) 8 % (0-12); Neutrophils # (Auto) 5.4 Thou/mm3 (1.8-7.7); Neutrophils % (Auto) 72 % (37-80); Nucleated Red Blood Cell # 0.00 Thou/mm3 (0.00-0.00); Nucleated Red Blood Cell % 0 /100 WBC (0); Platelet Count 447 Thou/mm3 (140-440); RDW Standard Deviation 42.0 fL (35.1-43.9); Red Blood Count 4.67 Miln/mm3 (4.50-5.90); White Blood Count 7.5 Thou/mm3 (3.8-10.6)
[2024-11-08 05:10] LABS: Anion Gap 9 (7-16); BUN/Creatinine Ratio 8 Ratio (12-20); Blood Urea Nitrogen 11 mg/dL (9-23); Calcium 9.4 mg/dL (8.3-10.6); Carbon Dioxide 28.1 mMol/L (20.0-31.0); Chloride 103 mMol/L (98-107); Creatinine (Component) 1.3 mg/dL (0.6-1.3); Estimated Creatinine Clearance 64.9 mL/min (>60); Glucose 94 mg/dL (74-106); Magnesium 2.2 mg/dL (1.6-2.6); Osmolality,Calculated 278 (275-295); Potassium 4.3 mMol/L (3.4-5.1); Sodium 140 mMol/L (136-145); Troponin I 0.024 ng/mL (0.0-0.045); eGFR > 60 See Note
--- NOTE | 2024-11-08 07:23 | PC.NURSE ---
called from lobby for discharge and no answer
--- NOTE | 2024-11-08 07:31 | PC.NURSE ---
CALLED FROM LOBBY AND NO ANSWER
--- NOTE | 2024-11-08 07:49 | PC.NURSE ---
CALLED FROM LOBBY AND NO ANSWER. PT NOT FOUND INSIDE THE E.D. OR OUTSIDE
== END 2024-11-08 07:49 | disposition home or self-care (01) ==
PROVIDERS: Emergency Provider Emergency Medicine
DX: F15.129 Other stimulant abuse with intoxication, unspecified (principal); R94.31 Abnormal electrocardiogram [ECG] [EKG]
CPT/HCPCS: 36415; 80048; 80307; 83735; 84484; 85025; 93005; 99283; A9270

== ENCOUNTER 2024-11-08 22:45 | Emergency (ER) | payer MEDICAID, SELFPAY ==
[2024-11-08 22:46] VITALS: PULSE 78; RESP 18; O2SAT 98; BMI 21.1
--- NOTE | 2024-11-08 23:59 | PD.EDCHEST ---
ED Chest Pain RME/HPI General Chief Complaint: Chest Pain Stated Complaint: CXP Time Seen by Provider: 11/08/24 23:52 Arrival date/time: 11/08/24 22:45 RME / HPI RME / HPI narrative: This section includes all my notes and documentations, including HPI, PE, and ED course. Boston Benavidez MD HPI: 39yo male with a history of methamphetamine abuse ELVNI presents to the ED for multiple vague complaints. Patient complains of chest pain, anxiety, palpitations, and nausea. Patient was seen here twice yesterday for the same complaints. No other complaints reported. ROS: All negative except as documented in HPI. Physical Exam: General: Alert and oriented. No acute distress when remaining still. Eyes: Conjunctivae and lids clear. ENT: No nasal congestion. Neck: Supple. Heart: RRR. Lungs: No respiratory distress. Good air movement. No rhonchi, wheezing, rales. Chest: Palpation of the sternum area reproduces his pain. Abdomen: Soft and nontender. Skin: Warm and dry. Neuro: Alert and oriented X 3. I reviewed EMS notes. I reviewed all diagnostic test results. My interpretation of the EKG is sinus rhythm with no acute ST?T changes. Blood tests are unremarkable including troponin x 2. At this point, diagnoses include chest pain, possibly musculoskeletal. Treatment here included Tylenol. Significant improvement noted. Recommended more outpatient cardiac workup. Based on my best medical judgment, made decision no further evaluation or treatment indicated at this time. Patient understands and agrees to the discharge instructions customized and printed, see below. Discharge instructions from Dr. Benavidez: 1. After extensive evaluation, there is no life-threatening condition. Such as heart attack or pulmonary embolism (blood clots in your lungs). 2. Your pain is possibly originating from the chest wall and not from an internal organ. The chest wall has many joints and muscles between the ribs, so sprains and strains are common. And related to your methamphetamine use. 3. Apply ice or heat if helpful. Tylenol/ibuprofen as needed. 4. If you want to make sure there is no serious underlying heart condition, see a private doctor outside the ER on 11/10/2024 for more tests not available in the ER. To make sure there is no serious underlying heart condition, ask to help you get more tests for your heart that cannot be done here in the ER. Such as Holter Monitor (cardiac monitoring at home from a day to even a month), heart stress test (on treadmill or with medication), echocardiogram (imaging of your heart structures), heart catherization (checking for blockages in your heart arteries), and a referral to see a Dietitian Assistant. 5. Seek immediate medical care with worsening or with any concerns. Boston Benavidez MD Related Data Previous Rx's ?Medication ?Instructions ?Recorded cetirizine 5 mg-pseudoephedrine ER 1 tab PO BID PRN sinus symptoms 08/30/21 120 mg tablet,extended #14 tabs release,12hr (Zyrtec-D) diphenhydramine HCl 25 mg capsule 25 mg PO Q8H PRN allergic symptoms 09/23/22 (Benadryl) #30 caps ibuprofen 600 mg tablet 600 mg PO QID PRN pain #20 tabs 09/23/22 ciprofloxacin HCl 500 mg tablet 500 mg PO BID #14 tabs 11/29/22 (Cipro) dicyclomine 20 mg tablet 20 mg PO BID #20 tabs 11/29/22 metronidazole 500 mg tablet 500 mg PO BID #14 tabs 11/29/22 cyclobenzaprine 7.5 mg tablet 7.5 mg PO TID PRN muscle spasm #30 12/03/22 tabs hydrocodone 5 mg-acetaminophen 325 1 tab PO BID PRN pain #14 tabs 01/16/23 mg tablet hydroxyzine HCl 50 mg tablet 50 mg PO Q6H PRN anxiety #20 tabs 01/18/24 amoxicillin 875 mg-potassium 1 tab PO BID #14 tabs 02/07/24 clavulanate 125 mg tablet acetaminophen 325 mg tablet 650 mg (2 x 325 mg) PO TID PRN 02/11/24 pain #30 tabs ibuprofen 600 mg tablet 600 mg PO Q8H PRN pain #30 tabs 02/11/24 ibuprofen 600 mg tablet 600 mg PO Q8H PRN pain #14 tabs 02/15/24 lidocaine 5 % topical patch 2 patch topical QDAY PRN pain #30 02/15/24 (Lidoderm) ea acetaminophen 500 mg tablet 500 mg PO Q6H PRN pain #30 tabs 09/15/24 tizanidine 4 mg tablet 4 mg PO BID PRN muscle spasticity 05/14/25 #20 tabs sumatriptan succinate 25 mg tablet 25 mg PO Q2H PRN migraine headache 10/08/24 (Imitrex) #10 tabs albuterol sulfate 90 mcg/actuation 1 inh inhalation Q4H PRN shortness 11/06/24 aerosol inhaler (Ventolin HFA) of breath or wheezing #8.5 grams hydroxyzine pamoate 25 mg capsule 25 mg PO BID PRN anxiety #10 caps 11/06/24 prednisone 20 mg tablet 20 mg PO QDAY 5 days #5 tabs 11/06/24 Allergies Allergy/AdvReac Type Severity Reaction Status Date / Time No Known Allergies Allergy Verified 11/08/24 22:51 Review of Systems Review of Systems Systems Reviewed: All systems reviewed, normal except as documented Past Medical History Past Medical History NEUROLOGIC: Negative Neurological Disorders or Seizures CARDIAC: Negative Cardiac Disorders or Congestive Heart Failure RESPIRATORY: Negative Chronic Obstructive Pulmonary Disease (COPD) or Asthma GASTROINTESTINAL: Negative Gastrointestinal Disorders GENITOURINARY: Positive Genitourinary Disorders; Negative Renal Disease MUSCULOSKELETAL: Negative Musculoskeletal Disorders ENDOCRINE: Negative Endocrine Disorders, Diabetes Mellitus Type 1 or Diabetes Mellitus Type 2 HEMATOLOGIC: Negative Blood Disorders or Sickle Cell Disease OTHER HISTORY: Positive Chicken Pox; Negative Hospitalization, Blood Transfusions, Blood Transfusion Reaction, Anesthesia Reactions or Cancer Social History SMOKING STATUS: Never smoker SUBSTANCE USE: methamphetamine ED Exam Narrative Physical exam: As noted in HPI. Course Quality Measures none Orders Category Date Time Status EKG (ED ONLY) *Do not use* NOW Care 11/09/24 00:13 Completed EKG (ED Only) Stat Exams 11/09/24 00:13 Draft Amylase Stat Lab 11/09/24 00:22 Completed BMP [Basic Metabolic Panel] Stat Lab 11/09/24 00:22 Completed CBC Stat Lab 11/09/24 00:22 Completed Lipase Stat Lab 11/09/24 00:22 Completed Troponin I Stat Lab 11/09/24 00:22 Completed Troponin I Stat Lab 11/09/24 03:02 Completed Acetaminophen Tab [Tylenol Tab] Med 11/09/24 00:13 Discontinued 650 mg PO X1 ONE Metoprolol Tartrate [Lopressor] Med 11/09/24 00:13 Discontinued 25 mg PO X1 ONE Vital Signs Vital signs: Vital Signs Temperature 98.3 F 11/09/24 00:05 Pulse Rate 114 H 11/09/24 00:05 Blood Pressure 128/77 11/09/24 00:05 Oxygen Delivery Method Room Air 11/09/24 00:05 Chest Pain MDM Narrative MDM Narrative:: 39yo male with a history of methamphetamine abuse ELVIN presents to the ED for multiple vague complaints. Patient complains of chest pain, anxiety, palpitations, and nausea. Patient was seen here twice yesterday for the same complaints. No other complaints reported. Patient data External records reviewed:: [facility] previous records (Per chart review, patient was seen here twice yesterday for the same complaints.) and EMS form Clinical information provided by:: patient Social determinants that could affect healthcare access:: substance use Patient has the following chronic illnesses:: none How is presenting disease/condition affected by chronic disease/condition?: no chronic disease Evaluation data The following diagnostics were reviewed and interpreted by me:: lab results and EKG tracing(s) Lab and/or radiology exams considered but not ordered:: none Interpretation Summary: I reviewed all diagnostic test results. My interpretation of the EKG is sinus rhythm with no acute ST?T changes. Blood tests are unremarkable including troponin x 2. Medications / Prescriptions Medications or Prescriptions considered but not ordered:: none Medication administrations:: Medication Administration History Discontinued Medications Acetaminophen (Acetaminophen 325 Mg Tablet) 650 mg PO X1 ONE Stop: 11/09/24 00:14 Last Admin: 11/09/24 01:26 Dose: 650 mg Documented By: JAQUI Metoprolol Tartrate (Metoprolol Tartrate 25 Mg Tablet) 25 mg PO X1 ONE Stop: 11/09/24 00:14 Last Admin: 11/09/24 01:27 Dose: Not Given Documented By: JAQUI Non-Admin Reason: Vital Signs Comments: DR. BENAVIDEZ MADE AWARE OF BP AND HR, PER DR. BENAVIDEZ HOLD METOPROLOL. Tylenol Consultations Consultation(s) initiated? (list below): No Diagnosis Chest Pain Differential Diagnosis: stable angina, unstable angina pectoris, atypical chest pain, st elevation myocardial infarction, costochondritis and other (Anxiety) Most likely diagnosis given after review of the tests above:: Chest pain, possibly musculoskeletal. Admission Indicated Admission indicated?: not indicated Explain why admission is indicated or not indicated:: With significant improvement and no condition needing emergent intervention, there was no indication for admission. Admission Request Was there a request for admission?: No Disposition Plan Disposition Plan: Discharge Discharge Attestation Discharge Attestation: The patient and all family members were given an opportunity to ask questions and understood the discharge instructions. Discharge instructions specifically effects, indications for sooner follow up or return to the emergency department, and the expected course of current diagnosis. Patient condition: Stable Discharge Plan Plan Patient Disposition: HOME (Self Care) Prescriptions/Referrals Prescriptions/Med Rec: No Action cetirizine-pseudoephedrine [Zyrtec-D] 5-120 mg tablet extended release 12 hr 1 tab PO BID PRN (Reason: sinus symptoms) Qty: 14 0RF diphenhydramine HCl [Benadryl] 25 mg capsule 25 mg PO Q8H PRN (Reason: allergic symptoms) Qty: 30 0RF ibuprofen 600 mg tablet 600 mg PO QID PRN (Reason: pain) Qty: 20 0RF ciprofloxacin HCl [Cipro] 500 mg tablet 500 mg PO BID Qty: 14 0RF metronidazole 500 mg tablet 500 mg PO BID Qty: 14 0RF dicyclomine 20 mg tablet 20 mg PO BID Qty: 20 0RF hydroxyzine HCl 50 mg tablet 50 mg PO Q6H PRN (Reason: anxiety) Qty: 20 0RF amoxicillin-pot clavulanate 875-125 mg tablet 1 tab PO BID Qty: 14 0RF ibuprofen 600 mg tablet 600 mg PO Q8H PRN (Reason: pain) Qty: 30 0RF acetaminophen 325 mg tablet 650 mg PO TID PRN (Reason: pain) Qty: 30 0RF lidocaine [Lidoderm] 5 % adhesive patch,medicated 2 patch topical QDAY PRN (Reason: pain) Qty: 30 0RF Rx Instructions: leave on most painful area for up to 12 hrs ibuprofen 600 mg tablet 600 mg PO Q8H PRN (Reason: pain) Qty: 14 0RF tizanidine 4 mg tablet 4 mg PO BID PRN (Reason: muscle spasticity) Qty: 20 0RF acetaminophen 500 mg tablet 500 mg PO Q6H PRN (Reason: pain) Qty: 30 0RF hydroxyzine pamoate 25 mg capsule 25 mg PO BID PRN (Reason: anxiety) Qty: 10 0RF albuterol sulfate [Ventolin HFA] 90 mcg/actuation HFA aerosol inhaler 1 inh inhalation Q4H PRN (Reason: shortness of breath or wheezing) Qty: 8.5 0RF prednisone 20 mg tablet 20 mg PO QDAY 5 Days Qty: 5 0RF cyclobenzaprine 7.5 mg tablet 7.5 mg PO TID PRN (Reason: muscle spasm) Qty: 30 0RF hydrocodone-acetaminophen 5-325 mg tablet 1 tab PO BID MDD 10 PRN (Reason: pain) Qty: 14 0RF sumatriptan succinate [Imitrex] 25 mg tablet 25 mg PO Q2H PRN (Reason: migraine headache) Qty: 10 0RF Rx Instructions: do not exceed 8 doses per 24 hrs Referrals: Jacob Stock PA-C [Primary Care Provider] - In 1 week Problem List Clinical Impression: Chest pain Patient/Caregiver Discharge Instructions Discharge Activity: activity as tolerated Education Materials: ED Chest Pain, Uncertain Cause Additional Instructions: Discharge instructions from Dr. Benavidez: 1. After extensive evaluation, there is no life-threatening condition.? Such as heart attack or pulmonary embolism (blood clots in your lungs). 2. Your pain is possibly originating from the chest wall and not from an internal organ.? The chest wall has many joints and muscles between the ribs, so sprains and strains are common.??And related to your methamphetamine use. 3. Apply ice or heat if helpful.? Tylenol/ibuprofen as needed. 4. If you want to make sure there is no serious underlying heart condition, see a private doctor outside the ER on 11/10/2024 for more tests not available in the ER. To make sure there is no serious underlying heart condition, ask to help you get more tests for your heart that cannot be done here in the ER.? Such as Holter Monitor (cardiac monitoring at home from a day to even a month), heart stress test (on treadmill or with medication), echocardiogram (imaging of your heart structures), heart catherization (checking for blockages in your heart arteries), and a referral to see a Dietitian Assistant.? 5. Seek immediate medical care with worsening or with any concerns.?? Print Language: Kittitian Stand Alone Forms: [facility]in Award Info., Patient Portal Info Letter
[2024-11-09 00:05] VITALS: BP 128/77; PULSE 114; TEMP 36.8
--- NOTE | 2024-11-09 00:13 | EKG_ITS ---
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
[2024-11-09 01:00] LABS: Basophils # (Auto) 0.0 Thou/mm3 (0.0-0.2); Basophils % (Auto) 0 % (0-2.5); Eosinophils # (Auto) 0.2 Thou/mm3 (0.0-0.5); Eosinophils % (Auto) 2 % (0-10); Hematocrit 37.7 % (41.0-53.0); Hemoglobin 13.2 g/dL (13.5-16.0); Immature Granulocytes Auto 0.01 Thou/mm3 (0.00-0.00); Lymphocytes # (Auto) 2.5 Thou/mm3 (1.0-4.8); Lymphocytes % (Auto) 31 % (10-50); Mean Corpuscular HGB Conc 35.0 g/dl (31.0-37.0); Mean Corpuscular Hemoglobin 31.2 pg (25.0-35.0); Mean Corpuscular Volume 89 fL (80-100); Monocytes # (Auto) 0.8 Thou/mm3 (0.0-0.8); Monocytes % (Auto) 10 % (0-12); Neutrophils # (Auto) 4.5 Thou/mm3 (1.8-7.7); Neutrophils % (Auto) 57 % (37-80); Nucleated Red Blood Cell # 0.00 Thou/mm3 (0.00-0.00); Nucleated Red Blood Cell % 0 /100 WBC (0); Platelet Count 398 Thou/mm3 (140-440); RDW Standard Deviation 42.7 fL (35.1-43.9); Red Blood Count 4.23 Miln/mm3 (4.50-5.90); White Blood Count 7.9 Thou/mm3 (3.8-10.6)
[2024-11-09 01:20] LABS: Amylase 91 U/L (30-118); Anion Gap 9 (7-16); BUN/Creatinine Ratio 11 Ratio (12-20); Blood Urea Nitrogen 12 mg/dL (9-23); Calcium 8.8 mg/dL (8.3-10.6); Carbon Dioxide 27.5 mMol/L (20.0-31.0); Chloride 107 mMol/L (98-107); Creatinine (Component) 1.1 mg/dL (0.6-1.3); Estimated Creatinine Clearance 79.6 mL/min (>60); Glucose 72 mg/dL (74-106); Lipase 37 U/L (12-53); Osmolality,Calculated 283 (275-295); Potassium 3.8 mMol/L (3.4-5.1); Sodium 143 mMol/L (136-145); Troponin I 0.020 ng/mL (0.0-0.045); eGFR > 60 See Note
[2024-11-09] MEDS: ACETAMINOPHEN 325 MG TABLET 650 MG PO (01:26)
[2024-11-09 01:27] VITALS: BP 100/64; PULSE 73
[2024-11-09 03:39] LABS: Troponin I 0.028 ng/mL (0.0-0.045)
== END 2024-11-09 04:00 | disposition home or self-care (01) ==
PROVIDERS: Emergency Provider Emergency Medicine; PCP Physician Assistant Medical
DX: R07.9 Chest pain, unspecified (principal); F41.9 Anxiety disorder, unspecified; R00.2 Palpitations; R94.31 Abnormal electrocardiogram [ECG] [EKG]
CPT/HCPCS: 36415; 80048; 82150; 83690; 84484; 85025; 93005; 99283; A9270

== ENCOUNTER 2024-11-27 21:55 | Emergency (ER) | payer MEDICAID, SELFPAY ==
[2024-11-27 21:58] VITALS: BP 156/110; PULSE 115; RESP 18; TEMP 37.4; O2SAT 96; BMI 21.4
[2024-11-27 22:10] VITALS: PULSE 116; RESP 18; O2SAT 97
--- NOTE | 2024-11-27 22:20 | XR_ITS ---
Examination: PA chest single view Anyone upright PA chest single view Date and time: November 27, 2024, 1038 hours INDICATIONS: Chest pain shortness of breath today. FINDINGS: Normal heart size. Lungs are clear. Osseous structures are intact. IMPRESSION: No active disease
--- NOTE | 2024-11-27 22:20 | EKG_ITS ---
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
[2024-11-27] MEDS: IBUPROFEN TAB 400 MG TABLET 800 MG PO (22:50)
[2024-11-27 22:57] LABS: Basophils # (Auto) 0.0 Thou/mm3 (0.0-0.2); Basophils % (Auto) 0 % (0-2.5); Eosinophils # (Auto) 0.0 Thou/mm3 (0.0-0.5); Eosinophils % (Auto) 0 % (0-10); Hematocrit 48.3 % (41.0-53.0); Hemoglobin 15.9 g/dL (13.5-16.0); Immature Granulocytes Auto 0.04 Thou/mm3 (0.00-0.00); Lymphocytes # (Auto) 1.2 Thou/mm3 (1.0-4.8); Lymphocytes % (Auto) 11 % (10-50); Mean Corpuscular HGB Conc 32.9 g/dl (31.0-37.0); Mean Corpuscular Hemoglobin 31.3 pg (25.0-35.0); Mean Corpuscular Volume 95 fL (80-100); Monocytes # (Auto) 0.6 Thou/mm3 (0.0-0.8); Monocytes % (Auto) 6 % (0-12); Neutrophils # (Auto) 8.9 Thou/mm3 (1.8-7.7); Neutrophils % (Auto) 82 % (37-80); Nucleated Red Blood Cell # 0.00 Thou/mm3 (0.00-0.00); Nucleated Red Blood Cell % 0 /100 WBC (0); Platelet Count 294 Thou/mm3 (140-440); RDW Standard Deviation 47.8 fL (35.1-43.9); Red Blood Count 5.08 Miln/mm3 (4.50-5.90); White Blood Count 10.8 Thou/mm3 (3.8-10.6)
[2024-11-27 23:13] LABS: Alanine Aminotransferase 8 U/L (10-49); Albumin, Serum 5.5 gm/dL (3.5-5.0); Albumin/Globulin Ratio 2.0 (1.2-2.2); Alkaline Phosphatase 92 U/L (46-116); Anion Gap 11 (7-16); Aspartate Amino Transferase 23 U/L (0-34); BUN/Creatinine Ratio 9 Ratio (12-20); Bilirubin,Total 1.1 mg/dL (0.3-1.2); Blood Urea Nitrogen 10 mg/dL (9-23); Calcium 10.7 mg/dL (8.3-10.6); Calcium (Corrected) 10.7 mg/dL (8.5-10.1); Carbon Dioxide 24.9 mMol/L (20.0-31.0); Chloride 103 mMol/L (98-107); Creatinine (Component) 1.1 mg/dL (0.6-1.3); Estimated Creatinine Clearance 80.8 mL/min (>60); Globulin 2.8 gm/dL (2.3-3.5); Glucose 104 mg/dL (74-106); Osmolality,Calculated 276 (275-295); Potassium 4.6 mMol/L (3.4-5.1); Sodium 139 mMol/L (136-145); Total Protein 8.3 gm/dL (5.7-8.2); Troponin I < 0.020 ng/mL (0.0-0.045); eGFR > 60 See Note
[2024-11-27 23:50] VITALS: BP 163/123; PULSE 129; RESP 18; O2SAT 96
[2024-11-28 00:06] VITALS: BP 163/123; PULSE 129
[2024-11-28] MEDS: METOPROLOL TARTRATE 25 MG TABLET PO (00:06)
[2024-11-28 00:45] LABS: Amphetamine/Methamp Scrn,U Positive (Negative); Barbiturate Screen,Urine Negative (Negative); Benzodiazepines Screen,Urine Negative (Negative); Benzoylecgonine Screen, Ur Negative (Negative); Fentanyl Screen,Urine Negative (Negative); Opiate Screen,Urine Negative (Negative); THC Screen,Urine Negative (Negative)
[2024-11-28 01:06] VITALS: BP 154/118; PULSE 87; RESP 18; O2SAT 95
[2024-11-28 01:21] VITALS: RESP 18
--- NOTE | 2024-11-28 01:26 | PD.EDCHEST ---
ED Chest Pain RME/HPI General Chief Complaint: Chest Pain Stated Complaint: CHEST PAIN Time Seen by Provider: 11/27/24 22:19 Source: patient Arrival date/time: This is a case of 39-year-old male with history of methamphetamine abuse and intoxication came in in the emergency room with chest pain and shortness of breath today patient have a multiple visit here in the emergency room with the same symptoms due to anxiety and methamphetamine abuse persistence of the symptoms this patient decided to sought consult here in the emergency room Limitations: no limitations Related Data Previous Rx's ?Medication ?Instructions ?Recorded cetirizine 5 mg-pseudoephedrine ER 1 tab PO BID PRN sinus symptoms 08/30/21 120 mg tablet,extended #14 tabs release,12hr (Zyrtec-D) diphenhydramine HCl 25 mg capsule 25 mg PO Q8H PRN allergic symptoms 09/23/22 (Benadryl) #30 caps ibuprofen 600 mg tablet 600 mg PO QID PRN pain #20 tabs 09/23/22 ciprofloxacin HCl 500 mg tablet 500 mg PO BID #14 tabs 11/29/22 (Cipro) dicyclomine 20 mg tablet 20 mg PO BID #20 tabs 11/29/22 metronidazole 500 mg tablet 500 mg PO BID #14 tabs 11/29/22 cyclobenzaprine 7.5 mg tablet 7.5 mg PO TID PRN muscle spasm #30 12/03/22 tabs hydrocodone 5 mg-acetaminophen 325 1 tab PO BID PRN pain #14 tabs 01/16/23 mg tablet hydroxyzine HCl 50 mg tablet 50 mg PO Q6H PRN anxiety #20 tabs 01/18/24 amoxicillin 875 mg-potassium 1 tab PO BID #14 tabs 02/07/24 clavulanate 125 mg tablet acetaminophen 325 mg tablet 650 mg (2 x 325 mg) PO TID PRN 02/11/24 pain #30 tabs ibuprofen 600 mg tablet 600 mg PO Q8H PRN pain #30 tabs 02/11/24 ibuprofen 600 mg tablet 600 mg PO Q8H PRN pain #14 tabs 02/15/24 lidocaine 5 % topical patch 2 patch topical QDAY PRN pain #30 02/15/24 (Lidoderm) ea acetaminophen 500 mg tablet 500 mg PO Q6H PRN pain #30 tabs 09/15/24 tizanidine 4 mg tablet 4 mg PO BID PRN muscle spasticity 09/15/24 #20 tabs sumatriptan succinate 25 mg tablet 25 mg PO Q2H PRN migraine headache 10/08/24 (Imitrex) #10 tabs albuterol sulfate 90 mcg/actuation 1 inh inhalation Q4H PRN shortness 11/06/24 aerosol inhaler (Ventolin HFA) of breath or wheezing #8.5 grams hydroxyzine pamoate 25 mg capsule 25 mg PO BID PRN anxiety #10 caps 11/06/24 Allergies Allergy/AdvReac Type Severity Reaction Status Date / Time No Known Allergies Allergy Verified 11/27/24 22:09 Review of Systems Review of Systems Systems Reviewed: All systems reviewed, normal except as documented Constitutional Constitutional: Reports system reviewed and no additional complaints, except as documented and Reports as per HPI Cardiovascular Cardiovascular: Reports system reviewed and no additional complaints, except as documented, Reports as per HPI, Denies acrocyanosis, Reports chest pain, Denies chest pain at rest, Denies chest pain with activity, Denies claudication, Denies diaphoresis, Reports dyspnea, Denies dyspnea on exertion, Denies edema, Denies irregular heart rhythm, Denies leg edema, Denies leg ulcers, Denies lightheadedness, Denies orthopnea, Denies palpitations, Denies paroxysmal nocturnal dyspnea, Denies pedal edema, Denies radiating jaw, neck or arm pain, Denies rapid heart rate, Denies slow heart rate and Denies syncope Respiratory Respiratory: Reports system reviewed and no additional complaints, except as documented, Reports as per HPI, Reports dyspnea and Denies dyspnea on exertion Musculoskeletal Musculoskeletal: Reports system reviewed and no additional complaints, except as documented and Reports as per HPI Neurologic Neurologic: Reports system reviewed and no additional complaints, except as documented, Reports as per HPI and Denies syncope Endocrine Endocrine: Denies palpitations Past Medical History Past Medical History NEUROLOGIC: Negative Neurological Disorders or Seizures CARDIAC: Negative Cardiac Disorders or Congestive Heart Failure RESPIRATORY: Negative Chronic Obstructive Pulmonary Disease (COPD) or Asthma GASTROINTESTINAL: Negative Gastrointestinal Disorders GENITOURINARY: Positive Genitourinary Disorders; Negative Renal Disease MUSCULOSKELETAL: Negative Musculoskeletal Disorders ENDOCRINE: Negative Endocrine Disorders, Diabetes Mellitus Type 1 or Diabetes Mellitus Type 2 HEMATOLOGIC: Negative Blood Disorders or Sickle Cell Disease OTHER HISTORY: Positive Chicken Pox; Negative Hospitalization, Blood Transfusions, Blood Transfusion Reaction, Anesthesia Reactions or Cancer Social History SMOKING STATUS: Never smoker SUBSTANCE USE: methamphetamine ED Exam General Limitations: Present no limitations General appearance: Present alert, in no apparent distress and other (Patient is awake alert oriented not in distress nontoxic looking) Head Head exam: Present atraumatic Eye Eye exam: Present normal appearance, PERRL and EOMI ENT ENT exam: Present normal exam, normal oropharynx and mucous membranes moist Neck Neck exam: Present normal inspection, full ROM and trachea midline Chest Chest inspection: Present normal inspection and symmetric chest wall rise; Absent tenderness Respiratory Respiratory exam: Present normal lung sounds bilaterally; Absent respiratory distress, wheezes, stridor, accessory muscle use or prolonged expiratory phase Cardiovascular Cardiovascular exam: Present normal rhythm, tachycardia, normal heart sounds and other (No edema); Absent irregular rhythm, systolic murmur, diastolic murmur, rubs, gallop, clicks or JVD Abdominal Exam Abdominal exam: Present soft and normal bowel sounds; Absent distention, tenderness, guarding, rebound, rigidity, diminished bowel sounds, hyperactive bowel sounds or hypoactive bowel sounds Extremities Exam Extremities exam: Present normal inspection and full ROM Back Exam Back exam: Present normal inspection and full ROM Neurological Exam Neurological exam: Present alert, oriented X3, CN II-XII intact, normal gait and reflexes normal; Absent motor sensory deficit Psychiatric Psychiatric exam: Present normal affect, normal mood, anxious and other (No hallucination); Absent depressed, agitated, flat affect, homicidal ideation or suicidal ideation Skin Skin exam: Present warm, dry, intact and normal color Course Quality Measures none Orders Category Date Time Status EKG (ED ONLY) *Do not use* NOW Care 11/27/24 22:20 Completed EKG (ED Only) Stat Exams 11/27/24 22:20 Draft XR chest 1V portable Stat Exams 11/27/24 22:20 Completed CBC Stat Lab 11/27/24 22:36 Completed CMP [Comprehensive Metabolic Panel] Stat Lab 11/27/24 22:36 Completed Drug Screen,Urine Stat Lab 11/27/24 23:55 Completed Troponin I Stat Lab 11/27/24 22:36 Completed Ibuprofen Tab [Motrin Tab] Med 11/27/24 22:31 Discontinued 800 mg PO X1 ONE LORazepam [Ativan] Med 11/27/24 22:31 Discontinued 1 mg PO X1 ONE Metoprolol Tartrate [Lopressor] Med 11/27/24 23:50 Discontinued 25 mg PO X1 ONE Vital Signs Vital signs: Vital Signs Temperature 99.4 F 11/27/24 21:58 Pulse Rate 115 H 11/27/24 21:58 Respiratory Rate 18 11/27/24 21:58 Blood Pressure 156/110 H 11/27/24 21:58 Pulse Oximetry (%) 96 11/27/24 21:58 Oxygen Delivery Method Room Air 11/27/24 21:58 Patient is afebrile mild tachycardic possibly due to anxiety not tachypneic BP is slightly elevated 156/100 after giving metoprolol noted to be 155/95 heart rate went down after metoprolol and noted to be 85 pulse oximetry is 96% in room air Chest Pain MDM Narrative MDM Narrative:: This is a case of 39-year-old male with history of methamphetamine abuse and intoxication came in in the emergency room with chest pain and shortness of breath today patient have a multiple visit here in the emergency room with the same symptoms due to anxiety and methamphetamine abuse persistence of the symptoms this patient decided to sought consult here in the emergency room physical examination patient is awake alert oriented not not in distress nontoxic looking mildly anxious mildly tachycardic BP is slightly elevated heart normal rhythm no murmur no edema the rest of the physical examination neurological exam is normal and unremarkable blood test showed no leukocytosis no anemia kidney and liver function is normal no electrolyte imbalance troponin is negative EKG showed sinus tachycardia at [address] Q wave or T elevation or abnormality patient chest x-ray is also normal patient was given Ativan and Motrin followed with metoprolol latest vital signs heart rate is 85 and BP is 155/95 at this point patient will be discharged home with stable condition at the time of exam the chest pain is possible not cardiac possibly due to anxiety and methamphetamine abuse patient drug screen showed positive methamphetamine patient was advised to follow-up PCP in 2 days for reevaluation and to be referred to police clerk for possible echocardiogram stress test and Holter monitor patient is advised also to see a psychiatrist psychologist for anxiety for any worsening symptoms or any emergent concern or recurrence return to the emergency room immediately was advised Patient was discharged with comfortable condition walking with stable gait. Patient verbalized no further complains explained diagnosis and answered patient question. Patient is comfortable with the proposed management plan including the need to follow up with his/her primary care physician and any specialist if applicable Discussed patient for any urgent condition or worsening sx, He/She needed to go to emergency room immediately or call 911. Patient acknowledge the responsibility to follow up as instructed and to monitor her/his symptoms. For any persistence of the symptoms for more than 3-5 days return precaution advised. Discussed the result of the test and was given printed discharge instruction Patient data External records reviewed:: [facility] previous records Clinical information provided by:: patient Social determinants that could affect healthcare access:: none Patient has the following chronic illnesses:: None How is presenting disease/condition affected by chronic disease/condition?: no chronic disease Evaluation data The following diagnostics were reviewed and interpreted by me:: lab results and radiology exam(s) Lab and/or radiology exams considered but not ordered:: Reviewed Interpretation Summary: Reviewed Medications / Prescriptions Medications or Prescriptions considered but not ordered:: Given Medication administrations:: Medication Administration History Discontinued Medications Ibuprofen (Ibuprofen Tab 400 Mg Tablet) 800 mg PO X1 ONE Stop: 11/27/24 22:32 Last Admin: 11/27/24 22:50 Dose: 800 mg Documented By: CVL Lorazepam (Lorazepam 0.5 Mg Tablet) 1 mg PO X1 ONE Stop: 11/27/24 22:32 Last Admin: 11/27/24 22:51 Dose: 1 mg Documented By: CVL Metoprolol Tartrate (Metoprolol Tartrate 25 Mg Tablet) 25 mg PO X1 ONE Stop: 11/27/24 23:51 Last Admin: 11/28/24 00:06 Dose: 25 mg Documented By: BD Given Consultations Consultation(s) initiated? (list below): No Diagnosis Chest Pain Differential Diagnosis: other (Chest pain of unknown etiology anxiety costochondritis) Most likely diagnosis given after review of the tests above:: Chest pain of unknown etiology anxiety Admission Indicated Admission indicated?: not indicated Explain why admission is indicated or not indicated:: Not indicated Admission Request Was there a request for admission?: No Disposition Plan Disposition Plan: Discharge Discharge Attestation Discharge Attestation: The patient and all family members were given an opportunity to ask questions and understood the discharge instructions. Discharge instructions specifically effects, indications for sooner follow up or return to the emergency department, and the expected course of current diagnosis. Patient condition: Stable Discharge Plan Plan Patient Disposition: HOME (Self Care) Patient condition on transfer: Stable Prescriptions/Referrals Prescriptions/Med Rec: No Action cetirizine-pseudoephedrine [Zyrtec-D] 5-120 mg tablet extended release 12 hr 1 tab PO BID PRN (Reason: sinus symptoms) Qty: 14 0RF diphenhydramine HCl [Benadryl] 25 mg capsule 25 mg PO Q8H PRN (Reason: allergic symptoms) Qty: 30 0RF ibuprofen 600 mg tablet 600 mg PO QID PRN (Reason: pain) Qty: 20 0RF ciprofloxacin HCl [Cipro] 500 mg tablet 500 mg PO BID Qty: 14 0RF metronidazole 500 mg tablet 500 mg PO BID Qty: 14 0RF dicyclomine 20 mg tablet 20 mg PO BID Qty: 20 0RF hydroxyzine HCl 50 mg tablet 50 mg PO Q6H PRN (Reason: anxiety) Qty: 20 0RF amoxicillin-pot clavulanate 875-125 mg tablet 1 tab PO BID Qty: 14 0RF ibuprofen 600 mg tablet 600 mg PO Q8H PRN (Reason: pain) Qty: 30 0RF acetaminophen 325 mg tablet 650 mg PO TID PRN (Reason: pain) Qty: 30 0RF lidocaine [Lidoderm] 5 % adhesive patch,medicated 2 patch topical QDAY PRN (Reason: pain) Qty: 30 0RF Rx Instructions: leave on most painful area for up to 12 hrs ibuprofen 600 mg tablet 600 mg PO Q8H PRN (Reason: pain) Qty: 14 0RF tizanidine 4 mg tablet 4 mg PO BID PRN (Reason: muscle spasticity) Qty: 20 0RF acetaminophen 500 mg tablet 500 mg PO Q6H PRN (Reason: pain) Qty: 30 0RF hydroxyzine pamoate 25 mg capsule 25 mg PO BID PRN (Reason: anxiety) Qty: 10 0RF albuterol sulfate [Ventolin HFA] 90 mcg/actuation HFA aerosol inhaler 1 inh inhalation Q4H PRN (Reason: shortness of breath or wheezing) Qty: 8.5 0RF cyclobenzaprine 7.5 mg tablet 7.5 mg PO TID PRN (Reason: muscle spasm) Qty: 30 0RF hydrocodone-acetaminophen 5-325 mg tablet 1 tab PO BID MDD 10 PRN (Reason: pain) Qty: 14 0RF sumatriptan succinate [Imitrex] 25 mg tablet 25 mg PO Q2H PRN (Reason: migraine headache) Qty: 10 0RF Rx Instructions: do not exceed 8 doses per 24 hrs Referrals: Michael Rudolph MD [Primary Care Provider] - In 1 week Problem List Clinical Impression: Chest pain of unknown etiology, Methamphetamine abuse, Anxiety Patient/Caregiver Discharge Instructions Education Materials: Addiction: Getting Help, ED Anxiety Reaction, ED Chest Pain, Uncertain Cause Additional Instructions: Follow-up with your primary care physician in 2 days for reevaluation and to be referred to police clerk for further evaluation and treatment of your chest pain for possible echocardiogram stress test and Holter monitor it is also important to be referred to psychologist and psychiatrist for your anxiety recurrence persistent worsening symptoms or any emergent concern call 911 or go to the nearest emergency room take Motrin or Tylenol as needed for pain Print Language: Ivorian Stand Alone Forms: Selin Award Info., Patient Portal Info Letter PA/WINDER OPERATOR Supervising Physician PA/WINDER OPERATOR Supervising Physician: DR moreno
== END 2024-11-28 01:21 | disposition home or self-care (01) ==
PROVIDERS: Nurse Practitioner Family; Emergency Provider Emergency Medicine; PCP Family Medicine
DX: R07.9 Chest pain, unspecified (principal); F15.10 Other stimulant abuse, uncomplicated; F41.9 Anxiety disorder, unspecified; R06.02 Shortness of breath; R00.0 Tachycardia, unspecified
CPT/HCPCS: 36415; 71045; 80053; 80307; 84484; 85025; 93005; 99283; A9270

== ENCOUNTER 2024-11-29 02:01 | Emergency (ER) | payer MEDICAID, SELFPAY ==
--- NOTE | 2024-11-29 02:02 | EKG_ITS ---
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
[2024-11-29 02:03] VITALS: PULSE 139
[2024-11-29 02:05] VITALS: BP 131/96; PULSE 124; RESP 18; TEMP 36.9; O2SAT 99
[2024-11-29 02:29] LABS: Collection Type, Urine Clean Catch
[2024-11-29 02:43] LABS: Bilirubin,Urine Negative (Negative); Blood,Urine Negative (Negative); Clarity,Urine Clear (Clear/Hazy); Color,Urine Yellow (Lt Yel-Yel); Culture Indicated,Urine Not Indicated; Glucose, Urine Negative (Negative); Hyaline Casts,Urine < 1 /hpf (0-1); Ketones,Urine 2+ (Negative); Leukocyte Esterase,Urine Negative (Negative); Nitrite,Urine Negative (Negative); PH,Urine 6.0 (5.0-7.0); Protein,Urine 1+ (Neg - Trace); RBC,Urine 1 /hpf (0-3); Specific Gravity,Urine 1.032 (1.001-1.035); Squamous Epithelial Cell,Urine < 1 /hpf (0-5); Urobilinogen,Urine Negative mg/dL (0.0-1.0); WBC,Urine 3 /hpf (0-5)
[2024-11-29 02:51] LABS: Amphetamine/Methamp Scrn,U Positive (Negative); Barbiturate Screen,Urine Negative (Negative); Benzodiazepines Screen,Urine Negative (Negative); Benzoylecgonine Screen, Ur Negative (Negative); Fentanyl Screen,Urine Negative (Negative); Opiate Screen,Urine Negative (Negative); THC Screen,Urine Negative (Negative)
--- NOTE | 2024-11-29 03:01 | XR_ITS ---
Examination: PA lateral chest 2 views TECHNIQUE: Upright PA and lateral chest 2 views Date and time: November 29, 2024, 0318 hours INDICATIONS: Shortness of breath today. FINDINGS: Normal heart size. The lungs are clear. The osseous structures are intact. IMPRESSION: No active disease.
--- NOTE | 2024-11-29 05:12 | PC.NURSE ---
CALLED PT TO COME TO ROOM HE WAS WAITING OUTSIDE HE SAID HIS RIDE WAS COMING AND HE NEEDED DISCHARGE PAPERS I ADVISED THAT HE NEEDS TO BE SEEN BY PROVIDER BEFORE WE CAN GIVE DISCHARGE PAPERS HE STATED OK THAT HE IS NOT GOING TO BE SEEN HIS RIDE IS COMING PT REMAINED OUTSIDE THE HOSPITAL WAITING FOR RIDE.
== END 2024-11-29 05:14 | disposition left against medical advice (07) ==
PROVIDERS: Emergency Provider Emergency Medicine; PCP Family Medicine
DX: Z53.21 Procedure and treatment not carried out due to patient leaving prior to being seen by health care provider (principal); R06.02 Shortness of breath
CPT/HCPCS: 71046; 80307; 81001; 87400; 87811; 93005; 99283

== ENCOUNTER 2024-12-10 20:56 | Emergency (ER) | payer MEDICAID, SELFPAY ==
[2024-12-10 20:58] VITALS: BP 159/108; PULSE 140; RESP 20; TEMP 36.7; O2SAT 100
[2024-12-10 20:59] VITALS: PULSE 122
[2024-12-10 21:46] VITALS: BP 157/99; PULSE 127; RESP 20; TEMP 36.6; O2SAT 99; BMI 20.9
--- NOTE | 2024-12-10 21:48 | EKG_ITS ---
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
--- NOTE | 2024-12-10 22:25 | XR_ITS ---
Examination: CT brain head without contrast. 2-D sagittal coronal reconstructions Date and time of exam:December 10, 2024 1105 hours Comparison October 08, 2024 INDICATIONS: Numbness syncopal episodes today CTDI: vol (mGy):45.50 DLP: (mGycm):925 Technique: Multiple CT axial sections of the brain have been obtained, 5 mm slice thickness. Contrast has not been administered. 2-D sagittal, coronal reconstructions have been obtained Low dose protocols were performed. One or more of the following dose reduction techniques were used; automated exposure control, adjustment of the mA and/or KV according to patient size, use of iterative reconstruction technique. Findings: No significant ventricular enlargement. Intra-axial or extra-axial hemorrhage density is not seen. No mass effect or midline shift Basal cisterns are not remarkable. Fourth ventricle is midline. Cranial vault intact. Impression: Negative for acute hemorrhage, mass effect or midline shift Consider brain MRI follow-up to assess for demyelinating disease, as clinically warranted
--- NOTE | 2024-12-10 22:25 | XR_ITS ---
Examination: PA chest single view TECHNIQUE: Upright PA chest single view Date and time: December 10, 2024, 11:21 PM INDICATIONS: Chest pain shortness of breath today. FINDINGS: Normal heart size. Lungs are clear. The osseous structures are intact. IMPRESSION: No active disease.
[2024-12-10 23:01] LABS: Basophils # (Auto) 0.0 Thou/mm3 (0.0-0.2); Basophils % (Auto) 0 % (0-2.5); Eosinophils # (Auto) 0.0 Thou/mm3 (0.0-0.5); Eosinophils % (Auto) 0 % (0-10); Hematocrit 46.3 % (41.0-53.0); Hemoglobin 16.0 g/dL (13.5-16.0); Immature Granulocytes Auto 0.02 Thou/mm3 (0.00-0.00); Lymphocytes # (Auto) 1.4 Thou/mm3 (1.0-4.8); Lymphocytes % (Auto) 15 % (10-50); Mean Corpuscular HGB Conc 34.6 g/dl (31.0-37.0); Mean Corpuscular Hemoglobin 31.4 pg (25.0-35.0); Mean Corpuscular Volume 91 fL (80-100); Monocytes # (Auto) 0.7 Thou/mm3 (0.0-0.8); Monocytes % (Auto) 8 % (0-12); Neutrophils # (Auto) 6.9 Thou/mm3 (1.8-7.7); Neutrophils % (Auto) 76 % (37-80); Nucleated Red Blood Cell # 0.00 Thou/mm3 (0.00-0.00); Nucleated Red Blood Cell % 0 /100 WBC (0); Platelet Count 412 Thou/mm3 (140-440); RDW Standard Deviation 42.3 fL (35.1-43.9); Red Blood Count 5.10 Miln/mm3 (4.50-5.90); White Blood Count 9.1 Thou/mm3 (3.8-10.6)
[2024-12-10 23:35] LABS: B-Type Natriuretic Peptide < 20 pg/mL (0-100); D-Dimer < 250 ng/mL (<600)
[2024-12-10 23:39] LABS: Alanine Aminotransferase 12 U/L (10-49); Albumin, Serum 5.2 gm/dL (3.5-5.0); Albumin/Globulin Ratio 2.1 (1.2-2.2); Alkaline Phosphatase 83 U/L (46-116); Anion Gap 13 (7-16); Aspartate Amino Transferase 22 U/L (0-34); BUN/Creatinine Ratio 11 Ratio (12-20); Bilirubin,Total 0.8 mg/dL (0.3-1.2); Blood Urea Nitrogen 14 mg/dL (9-23); Calcium 9.8 mg/dL (8.3-10.6); Calcium (Corrected) 9.8 mg/dL (8.5-10.1); Carbon Dioxide 25.5 mMol/L (20.0-31.0); Chloride 101 mMol/L (98-107); Creatinine (Component) 1.3 mg/dL (0.6-1.3); Estimated Creatinine Clearance 66.6 mL/min (>60); Globulin 2.5 gm/dL (2.3-3.5); Glucose 122 mg/dL (74-106); Osmolality,Calculated 279 (275-295); Potassium 4.1 mMol/L (3.4-5.1); Sodium 139 mMol/L (136-145); Total Protein 7.7 gm/dL (5.7-8.2); Troponin I < 0.002 ng/mL (0.0-0.045); eGFR > 60 See Note
[2024-12-11 02:58] VITALS: BP 138/101; PULSE 86; RESP 19; TEMP 36.8; O2SAT 99
--- NOTE | 2024-12-11 03:06 | PC.NURSE ---
PT INFORMED ME THAT HE WILL GO HOME.
--- NOTE | 2024-12-11 03:23 | PD.EDANX ---
ED Anxiety RME/HPI General Chief Complaint: Anxiety Stated Complaint: ANXIETY Time Seen by Provider: 12/10/24 22:24 Arrival date/time: 12/10/24 20:56 39M with history of psych/drug use presents to ED with CP and RESENDIZ. Limitations: no limitations Related Data Previous Rx's ?Medication ?Instructions ?Recorded cetirizine 5 mg-pseudoephedrine ER 1 tab PO BID PRN sinus symptoms 08/30/21 120 mg tablet,extended #14 tabs release,12hr (Zyrtec-D) diphenhydramine HCl 25 mg capsule 25 mg PO Q8H PRN allergic symptoms 09/23/22 (Benadryl) #30 caps ibuprofen 600 mg tablet 600 mg PO QID PRN pain #20 tabs 09/23/22 ciprofloxacin HCl 500 mg tablet 500 mg PO BID #14 tabs 11/29/22 (Cipro) dicyclomine 20 mg tablet 20 mg PO BID #20 tabs 11/29/22 metronidazole 500 mg tablet 500 mg PO BID #14 tabs 11/29/22 cyclobenzaprine 7.5 mg tablet 7.5 mg PO TID PRN muscle spasm #30 12/03/22 tabs hydrocodone 5 mg-acetaminophen 325 1 tab PO BID PRN pain #14 tabs 01/16/23 mg tablet hydroxyzine HCl 50 mg tablet 50 mg PO Q6H PRN anxiety #20 tabs 01/18/24 amoxicillin 875 mg-potassium 1 tab PO BID #14 tabs 02/07/24 clavulanate 125 mg tablet acetaminophen 325 mg tablet 650 mg (2 x 325 mg) PO TID PRN 02/11/24 pain #30 tabs ibuprofen 600 mg tablet 600 mg PO Q8H PRN pain #30 tabs 02/11/24 ibuprofen 600 mg tablet 600 mg PO Q8H PRN pain #14 tabs 02/15/24 lidocaine 5 % topical patch 2 patch topical QDAY PRN pain #30 02/15/24 (Lidoderm) ea acetaminophen 500 mg tablet 500 mg PO Q6H PRN pain #30 tabs 09/15/24 tizanidine 4 mg tablet 4 mg PO BID PRN muscle spasticity 09/15/24 #20 tabs sumatriptan succinate 25 mg tablet 25 mg PO Q2H PRN migraine headache 10/08/24 (Imitrex) #10 tabs albuterol sulfate 90 mcg/actuation 1 inh inhalation Q4H PRN shortness 11/06/24 aerosol inhaler (Ventolin HFA) of breath or wheezing #8.5 grams hydroxyzine pamoate 25 mg capsule 25 mg PO BID PRN anxiety #10 caps 11/06/24 Allergies Allergy/AdvReac Type Severity Reaction Status Date / Time No Known Allergies Allergy Verified 12/10/24 20:59 Review of Systems Constitutional Constitutional: Reports as per HPI and Reports headache(s) ENT Ears, Nose, Mouth, and Throat: Reports headache(s) Cardiovascular Cardiovascular: Reports as per HPI and Reports chest pain Neurologic Neurologic: Reports headache(s) Past Medical History Past Medical History NEUROLOGIC: Negative Neurological Disorders or Seizures CARDIAC: Negative Cardiac Disorders or Congestive Heart Failure RESPIRATORY: Negative Chronic Obstructive Pulmonary Disease (COPD) or Asthma GASTROINTESTINAL: Negative Gastrointestinal Disorders GENITOURINARY: Positive Genitourinary Disorders; Negative Renal Disease MUSCULOSKELETAL: Negative Musculoskeletal Disorders ENDOCRINE: Negative Endocrine Disorders, Diabetes Mellitus Type 1 or Diabetes Mellitus Type 2 HEMATOLOGIC: Negative Blood Disorders or Sickle Cell Disease OTHER HISTORY: Positive Chicken Pox; Negative Hospitalization, Blood Transfusions, Blood Transfusion Reaction, Anesthesia Reactions or Cancer Social History SMOKING STATUS: Current every day smoker SUBSTANCE USE: methamphetamine ED Exam General Limitations: Present no limitations General appearance: Present alert, in no apparent distress and anxious Head Head exam: Present atraumatic Eye Eye exam: Present normal appearance, PERRL and EOMI ENT ENT exam: Present normal exam, normal oropharynx and mucous membranes moist Neck Neck exam: Present normal inspection, full ROM and trachea midline Chest Chest inspection: Present normal inspection and symmetric chest wall rise Respiratory Respiratory exam: Present normal lung sounds bilaterally Cardiovascular Cardiovascular exam: Present regular rate, normal rhythm and normal heart sounds Abdominal Exam Abdominal exam: Present soft and normal bowel sounds Extremities Exam Extremities exam: Present normal inspection and full ROM Back Exam Back exam: Present normal inspection and full ROM Neurological Exam Neurological exam: Present alert, oriented X3 and CN II-XII intact Psychiatric Psychiatric exam: Present normal affect and normal mood Skin Skin exam: Present warm, dry, intact and normal color Course Quality Measures none Orders Category Date Time Status EKG (ED ONLY) *Do not use* NOW Care 12/10/24 21:[address] head/brain wo con Stat Exams 12/10/24 22:25 Completed EKG (ED Only) Stat Exams 12/10/24 21:48 Draft XR chest 1V portable Stat Exams 12/10/24 22:25 Completed B-Type Natriuretic Peptide Stat Lab 12/10/24 22:37 Completed CBC Stat Lab 12/10/24 22:37 Completed Comprehensive Metabolic Panel Stat Lab 12/10/24 22:37 Completed D-Dimer Stat Lab 12/10/24 22:37 Completed Troponin I Stat Lab 12/10/24 22:37 Completed Vital Signs Vital signs: Vital Signs Temperature 98.0 F 12/10/24 20:58 Pulse Rate 140 H 12/10/24 20:58 Respiratory Rate 20 12/10/24 20:58 Blood Pressure 159/108 H 12/10/24 20:58 Pulse Oximetry (%) 100 12/10/24 20:58 Oxygen Delivery Method Room Air 12/10/24 20:58 Anxiety MDM Narrative MDM Narrative: 39M with history of psych/drug use presents to ED with CP and RESENDIZ. Physical exam reveals normal WOB. Patient is afebrile, alert, but anxious. Gait normal. Speech normal. Patient is talking on his phone. Patient eloped. Patient data External records reviewed:: [facility] previous records Clinical information provided by:: patient Social determinants that could affect healthcare access:: mental health Patient has the following chronic illnesses:: psych/drug How is presenting disease/condition affected by chronic disease/condition?: exacerbated by Evaluation data The following diagnostics were reviewed and interpreted by me:: lab results, radiology exam(s) and EKG tracing(s) Lab and/or radiology exams considered but not ordered:: ordered Interpretation Summary: above Medications / Prescriptions Medications or Prescriptions considered but not ordered:: not ordered Medication administrations:: n/a Consultations Consultation(s) initiated? (list below): No Diagnosis Differential diagnosis anxiety: hyperventilation, panic disorder and acute anxiety Most likely diagnosis given after review of the tests above:: anxiety Admission Indicated Admission indicated?: not indicated Admission Request Was there a request for admission?: No Disposition Plan Disposition Plan: other (specify) (eloped) Discharge Plan Plan Patient Disposition: Elopement Prescriptions/Referrals Prescriptions/Med Rec: No Action cetirizine-pseudoephedrine [Zyrtec-D] 5-120 mg tablet extended release 12 hr 1 tab PO BID PRN (Reason: sinus symptoms) Qty: 14 0RF diphenhydramine HCl [Benadryl] 25 mg capsule 25 mg PO Q8H PRN (Reason: allergic symptoms) Qty: 30 0RF ibuprofen 600 mg tablet 600 mg PO QID PRN (Reason: pain) Qty: 20 0RF ciprofloxacin HCl [Cipro] 500 mg tablet 500 mg PO BID Qty: 14 0RF metronidazole 500 mg tablet 500 mg PO BID Qty: 14 0RF dicyclomine 20 mg tablet 20 mg PO BID Qty: 20 0RF hydroxyzine HCl 50 mg tablet 50 mg PO Q6H PRN (Reason: anxiety) Qty: 20 0RF amoxicillin-pot clavulanate 875-125 mg tablet 1 tab PO BID Qty: 14 0RF ibuprofen 600 mg tablet 600 mg PO Q8H PRN (Reason: pain) Qty: 30 0RF acetaminophen 325 mg tablet 650 mg PO TID PRN (Reason: pain) Qty: 30 0RF lidocaine [Lidoderm] 5 % adhesive patch,medicated 2 patch topical QDAY PRN (Reason: pain) Qty: 30 0RF Rx Instructions: leave on most painful area for up to 12 hrs ibuprofen 600 mg tablet 600 mg PO Q8H PRN (Reason: pain) Qty: 14 0RF tizanidine 4 mg tablet 4 mg PO BID PRN (Reason: muscle spasticity) Qty: 20 0RF acetaminophen 500 mg tablet 500 mg PO Q6H PRN (Reason: pain) Qty: 30 0RF hydroxyzine pamoate 25 mg capsule 25 mg PO BID PRN (Reason: anxiety) Qty: 10 0RF albuterol sulfate [Ventolin HFA] 90 mcg/actuation HFA aerosol inhaler 1 inh inhalation Q4H PRN (Reason: shortness of breath or wheezing) Qty: 8.5 0RF cyclobenzaprine 7.5 mg tablet 7.5 mg PO TID PRN (Reason: muscle spasm) Qty: 30 0RF hydrocodone-acetaminophen 5-325 mg tablet 1 tab PO BID MDD 10 PRN (Reason: pain) Qty: 14 0RF sumatriptan succinate [Imitrex] 25 mg tablet 25 mg PO Q2H PRN (Reason: migraine headache) Qty: 10 0RF Rx Instructions: do not exceed 8 doses per 24 hrs Referrals: Ronni,Michael Y, MD [Primary Care Provider] - In 1 week Problem List Clinical Impression: Anxiety Patient/Caregiver Discharge Instructions Print Language: Puerto Rican 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 Bloom
== END 2024-12-11 03:07 | disposition left against medical advice (07) ==
LOC: SERX 23:20
PROVIDERS: Physician Assistant; Emergency Provider Emergency Medicine; PCP Family Medicine
DX: F41.9 Anxiety disorder, unspecified (principal); R20.0 Anesthesia of skin; R55 Syncope and collapse; R07.9 Chest pain, unspecified; R06.02 Shortness of breath; R00.0 Tachycardia, unspecified; Z53.29 Procedure and treatment not carried out because of patient's decision for other reasons
CPT/HCPCS: 36415; 70450; 71045; 80053; 83880; 84484; 85025; 85379; 93005; 99283

== ENCOUNTER 2024-12-11 15:06 | Emergency (ER) | payer MEDICAID, SELFPAY ==
[2024-12-11 15:14] VITALS: BP 139/104; PULSE 127; RESP 18; TEMP 36.8; O2SAT 98
--- NOTE | 2024-12-11 15:55 | PD.EDADULT ---
ED General RME/HPI General Chief complaint: Headache Stated complaint: MEDICAL CLEARANCE Time Seen by Provider: 12/11/24 15:55 Arrival date/time: 12/11/24 15:06 RME / HPI RME / HPI narrative: DR. NARAYAN MAIN ED EVALUATION: 39 year old male with past medical history of anxiety, GERD, and methamphetamine abuse presents to the Emergency Department brought in by police as a medical clearance for tachycardia after being arrested. Per report, patient called 911 multiple times since yesterday and hung up each time. Denies alcohol or drug use, although there is a noted history of methamphetamine use. Patient denies mental health problems. No chest pain, shortness of breath, or other acute complaints at this time. No known allergies. Related Data Previous Rx's ?Medication ?Instructions ?Recorded cetirizine 5 mg-pseudoephedrine ER 1 tab PO BID PRN sinus symptoms 08/30/21 120 mg tablet,extended #14 tabs release,12hr (Zyrtec-D) diphenhydramine HCl 25 mg capsule 25 mg PO Q8H PRN allergic symptoms 09/23/22 (Benadryl) #30 caps ibuprofen 600 mg tablet 600 mg PO QID PRN pain #20 tabs 09/23/22 ciprofloxacin HCl 500 mg tablet 500 mg PO BID #14 tabs 11/29/22 (Cipro) dicyclomine 20 mg tablet 20 mg PO BID #20 tabs 11/29/22 metronidazole 500 mg tablet 500 mg PO BID #14 tabs 11/29/22 cyclobenzaprine 7.5 mg tablet 7.5 mg PO TID PRN muscle spasm #30 12/03/22 tabs hydrocodone 5 mg-acetaminophen 325 1 tab PO BID PRN pain #14 tabs 01/16/23 mg tablet hydroxyzine HCl 50 mg tablet 50 mg PO Q6H PRN anxiety #20 tabs 01/18/24 amoxicillin 875 mg-potassium 1 tab PO BID #14 tabs 02/07/24 clavulanate 125 mg tablet acetaminophen 325 mg tablet 650 mg (2 x 325 mg) PO TID PRN 02/11/24 pain #30 tabs ibuprofen 600 mg tablet 600 mg PO Q8H PRN pain #30 tabs 02/11/24 ibuprofen 600 mg tablet 600 mg PO Q8H PRN pain #14 tabs 02/15/24 lidocaine 5 % topical patch 2 patch topical QDAY PRN pain #30 02/15/24 (Lidoderm) ea acetaminophen 500 mg tablet 500 mg PO Q6H PRN pain #30 tabs 09/15/24 tizanidine 4 mg tablet 4 mg PO BID PRN muscle spasticity 09/15/24 #20 tabs sumatriptan succinate 25 mg tablet 25 mg PO Q2H PRN migraine headache 10/08/24 (Imitrex) #10 tabs albuterol sulfate 90 mcg/actuation 1 inh inhalation Q4H PRN shortness 11/06/24 aerosol inhaler (Ventolin HFA) of breath or wheezing #8.5 grams hydroxyzine pamoate 25 mg capsule 25 mg PO BID PRN anxiety #10 caps 11/06/24 Allergies Allergy/AdvReac Type Severity Reaction Status Date / Time No Known Allergies Allergy Verified 12/11/24 16:48 Review of Systems Review of Systems Systems Reviewed: All systems reviewed, normal except as documented Past Medical History Past Medical History GENITOURINARY: Positive Genitourinary Disorders OTHER HISTORY: Positive Chicken Pox Social History SMOKING STATUS: Current every day smoker SUBSTANCE USE: does not use and methamphetamine ALCOHOL: Never ED Exam Narrative Physical exam: Physical Exam: General: The vital signs were reviewed. Patient sitting in the ambulance bay with the officer he is brought in as a medical clearance who is got mumbling speech evidently he was brought in because he has been calling 911 multiple times but does not make sense and does not or does not have a cogent history of why he is here. His heart rate is fast in the 140s the patient is non-toxic, in no apparent distress and appears healthy with a patent airway, no respiratory distress and has no apparent circulatory problems. Head & Scalp: Normocephalic, atraumatic. Face: Appears normal and is without lesions, deformity. Ears: Left external pinna appears normal. Right external pinna appears normal. Eyes: The sclera is anicteric. No obvious photophobia. The Left and Right Orbit/Lid/Conjunctiva appears normal without swelling, discoloration or injection. Nose: The nose is without deformity, discharge or tenderness; Throat: Appears normal. The mucous membranes are pink and moist without exudates, redness or mass seen. The tongue appears normal. Neck: The neck is supple and no apparent mass or adenopathy. Chest: The chest wall is normal in size and symmetry and has no chest wall tenderness or crepitus. The patient displays normal ventilator effort without retractions, accessory muscle use and has adequate air movement bilaterally with no wheezes and no rales. Cardiovascular: Regular rate and rhythm; No murmurs, rubs, or gallops; Gastrointestinal: The abdomen appears normal. No obvious hernias or mass. The abdomen is soft and benign, non-distended, with no pain, no guarding and no rebound tenderness. Bowel sounds are present and normal sounding. No CVA tenderness. Genitourinary: Back/Spine: Normal inspection Extremities/Musculoskeletal/lymphatic: The bilateral upper and lower extremities are warm. There is no evidence of arterial insufficiency. There is no evidence of venous insufficiency/edema. The patient spontaneously moves bilateral upper and lower extremities with no pain and no limitation of movement. There is no apparent, injury or trauma. Skin: The skin is warm, dry and intact. No rashes. No petechia. No purpura. No abnormal bruising. The color is appropriate with no cyanosis. Mental status/Psychiatric: Mental status is appropriate for age. The patient has no apparent delusions, visual hallucinations, no apparent audible hallucinations. The patient has no apparent suicidal thoughts/ideation and no apparent homicidal thoughts/ideation. Neurological: The patient is awake, alert, interactive, cordial, cooperative and is oriented to name and situation. The patient follows commands and answers historical question with no impairment. There is no visual disturbance apparent. The pupils are equal and reactive bilaterally with normal eye movements and no diplopia The bilateral upper and lower extremities have normal strength, normal range of motion and normal functioning. The gait, station and balance appear to be baseline with no acute change Course Quality Measures none Orders Category Date Time Status EKG (ED ONLY) *Do not use* NOW Care 12/11/24 16:48 Ordered Miscellaneous Nursing Order NOW Care 12/11/24 16:48 Ordered EKG (ED Only) Stat Exams 12/11/24 16:48 Ordered Alcohol, Blood Medical Stat Lab 12/11/24 16:45 Ordered CBC Stat Lab 12/11/24 16:45 Ordered Comprehensive Metabolic Panel Stat Lab 12/11/24 16:45 Ordered Drug Screen,Urine Stat Lab 12/11/24 16:45 Ordered Urinalysis Stat Lab 12/11/24 16:45 Ordered Sodium Chloride 0.9% 1000 ml [Ns] 1,000 ml Med 12/11/24 16:44 Active IV 150 mls/hr Sodium Chloride 0.9% 1000 ml [Ns] 2,000 ml Med 12/11/24 16:44 Active IV 999 mls/hr Vital Signs Vital signs: Vital Signs Temperature 98.3 F 12/11/24 15:14 Pulse Rate 127 H 12/11/24 15:14 Respiratory Rate 18 12/11/24 15:14 Blood Pressure 139/104 H 12/11/24 15:14 Pulse Oximetry (%) 98 12/11/24 15:14 Oxygen Delivery Method Room Air 12/11/24 15:14 Discharge Plan Prescriptions/Referrals Prescriptions/Med Rec: No Action cetirizine-pseudoephedrine [Zyrtec-D] 5-120 mg tablet extended release 12 hr 1 tab PO BID PRN (Reason: sinus symptoms) Qty: 14 0RF diphenhydramine HCl [Benadryl] 25 mg capsule 25 mg PO Q8H PRN (Reason: allergic symptoms) Qty: 30 0RF ibuprofen 600 mg tablet 600 mg PO QID PRN (Reason: pain) Qty: 20 0RF ciprofloxacin HCl [Cipro] 500 mg tablet 500 mg PO BID Qty: 14 0RF metronidazole 500 mg tablet 500 mg PO BID Qty: 14 0RF dicyclomine 20 mg tablet 20 mg PO BID Qty: 20 0RF hydroxyzine HCl 50 mg tablet 50 mg PO Q6H PRN (Reason: anxiety) Qty: 20 0RF amoxicillin-pot clavulanate 875-125 mg tablet 1 tab PO BID Qty: 14 0RF ibuprofen 600 mg tablet 600 mg PO Q8H PRN (Reason: pain) Qty: 30 0RF acetaminophen 325 mg tablet 650 mg PO TID PRN (Reason: pain) Qty: 30 0RF lidocaine [Lidoderm] 5 % adhesive patch,medicated 2 patch topical QDAY PRN (Reason: pain) Qty: 30 0RF Rx Instructions: leave on most painful area for up to 12 hrs ibuprofen 600 mg tablet 600 mg PO Q8H PRN (Reason: pain) Qty: 14 0RF tizanidine 4 mg tablet 4 mg PO BID PRN (Reason: muscle spasticity) Qty: 20 0RF acetaminophen 500 mg tablet 500 mg PO Q6H PRN (Reason: pain) Qty: 30 0RF hydroxyzine pamoate 25 mg capsule 25 mg PO BID PRN (Reason: anxiety) Qty: 10 0RF albuterol sulfate [Ventolin HFA] 90 mcg/actuation HFA aerosol inhaler 1 inh inhalation Q4H PRN (Reason: shortness of breath or wheezing) Qty: 8.5 0RF cyclobenzaprine 7.5 mg tablet 7.5 mg PO TID PRN (Reason: muscle spasm) Qty: 30 0RF hydrocodone-acetaminophen 5-325 mg tablet 1 tab PO BID MDD 10 PRN (Reason: pain) Qty: 14 0RF sumatriptan succinate [Imitrex] 25 mg tablet 25 mg PO Q2H PRN (Reason: migraine headache) Qty: 10 0RF Rx Instructions: do not exceed 8 doses per 24 hrs Referrals: No Primary/Family,Physician [Primary Care Provider] - In 1 week Problem List Clinical Impression: Medical clearance for incarceration, Sinus tachycardia, History of methamphetamine abuse Patient/Caregiver Discharge Instructions Print Language: Malawian MDM Narrative Sign out note: Faye Reza, am scribing for and in the presence of Dr. Narayan. Patient spent calling 911 multiple times which got him arrested today. His heart rate was fast when he went to the prison so they brought him here. In our ER we watched him for little bit his heart rates in the 140s. Patient denies drinking using drugs even though his last 4 drug screens were positive for methamphetamine. Officer signed him out and patient was taken up to triage and placed some basic orders in the care of this patient will fall to the next doctor coming on shift. Clinical Information Provided by patient Medical Records Reviewed [facility] and [facility] Meds/Rx Considered, not Ordered None Labs/Rad/Tests considered, not Ordered None Chronic Illness/Social Conditions Add or document further as needed: Anxiety, GERD, and methamphetamine abuse. No known allergies. Medication Administration(s) Medication Administration History Sodium Chloride (Ns) 1,000 mls @ 150 mls/hr IV .Q6H40M ONE Stop: 12/11/24 23:23 Sodium Chloride (Ns) 2,000 mls @ 999 mls/hr IV .Q2H1M ONE Stop: 12/11/24 18:44 Diagnosis Differential diagnosis: stimulant-induced tachycardia, anxiety, SVT
[2024-12-11 16:10] VITALS: BP 142/96; PULSE 131; RESP 18; TEMP 36.5; O2SAT 99
[2024-12-11 16:46] VITALS: BMI 21.1
[2024-12-11 16:47] VITALS: BP 135/95; PULSE 121; RESP 18; TEMP 36.9; O2SAT 96
--- NOTE | 2024-12-11 16:48 | EKG_ITS ---
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
--- NOTE | 2024-12-11 16:53 | PD.EDADDENDU ---
Emergency Room Addendum <Faye Pratt - Last Filed: 12/11/24 22:32> Addendum Narrative: 1700: Care assumed from Dr. Live, the previous shift emergency physician. Past medical, surgical, social and family history reviewed. Vitals and home medications reviewed. I will assume the care of the patient at this time, pending labs and final disposition. Please refer to the emergency department record for history and examination from initial visit.? Physical exam by me shows patient under no acute distress at this time. 1840: This patient is choosing to leave against medical advice. I have personally explained to the patient that choosing to do so may result in permanent bodily harm or . I discussed a great length that without further evaluation and monitoring there may be unforeseen circumstances and deterioration causing permanent bodily harm or as a result of their choice. The patient is alert, oriented and competent at this time. The patient states that they are aware of the serious risks as explained, but they continue to wish to leave against medical advice. In light of their decision to leave AMA, follow-up has been arranged and they are aware of the importance of following up as instructed. They have been advised that they should return to the ED immediately if they change their mind at any time, or if their condition begins to change or worsen. <Yo Bloom DO - Last Filed: 12/12/24 02:27> Addendum Narrative: 1700: Care assumed from Dr. Live, the previous shift emergency physician. Past medical, surgical, social and family history reviewed. Vitals and home medications reviewed. I will assume the care of the patient at this time, pending labs and final disposition. Patient was released on his own accord per department Public Safety. Patient however remained tachycardic awaiting IV fluid hydration. Unable to obtain UA as there is some underlying suspicion for methamphetamine abuse. Please refer to the emergency department record for history and examination from initial visit.? 1840: This patient is choosing to leave against medical advice. I have personally explained to the patient that choosing to do so may result in permanent bodily harm or . I discussed a great length that without further evaluation and monitoring there may be unforeseen circumstances and deterioration causing permanent bodily harm or as a result of their choice. The patient is alert, oriented and competent at this time. The patient states that they are aware of the serious risks as explained, but they continue to wish to leave against medical advice. In light of their decision to leave AMA, follow-up has been arranged and they are aware of the importance of following up as instructed. They have been advised that they should return to the ED immediately if they change their mind at any time, or if their condition begins to change or worsen.
[2024-12-11 17:31] LABS: Basophils # (Auto) 0.0 Thou/mm3 (0.0-0.2); Basophils % (Auto) 0 % (0-2.5); Eosinophils # (Auto) 0.0 Thou/mm3 (0.0-0.5); Eosinophils % (Auto) 0 % (0-10); Hematocrit 47.2 % (41.0-53.0); Hemoglobin 15.8 g/dL (13.5-16.0); Immature Granulocytes Auto 0.04 Thou/mm3 (0.00-0.00); Lymphocytes # (Auto) 1.5 Thou/mm3 (1.0-4.8); Lymphocytes % (Auto) 11 % (10-50); Mean Corpuscular HGB Conc 33.5 g/dl (31.0-37.0); Mean Corpuscular Hemoglobin 30.6 pg (25.0-35.0); Mean Corpuscular Volume 91 fL (80-100); Monocytes # (Auto) 1.1 Thou/mm3 (0.0-0.8); Monocytes % (Auto) 8 % (0-12); Neutrophils # (Auto) 11.1 Thou/mm3 (1.8-7.7); Neutrophils % (Auto) 80 % (37-80); Nucleated Red Blood Cell # 0.00 Thou/mm3 (0.00-0.00); Nucleated Red Blood Cell % 0 /100 WBC (0); Platelet Count 444 Thou/mm3 (140-440); RDW Standard Deviation 42.0 fL (35.1-43.9); Red Blood Count 5.17 Miln/mm3 (4.50-5.90); White Blood Count 13.9 Thou/mm3 (3.8-10.6)
[2024-12-11 18:01] LABS: Alanine Aminotransferase 11 U/L (10-49); Albumin, Serum 5.2 gm/dL (3.5-5.0); Albumin/Globulin Ratio 1.9 (1.2-2.2); Alcohol, Blood Medical < 3.0 mg/dL (0-10.0); Alkaline Phosphatase 85 U/L (46-116); Anion Gap 15 (7-16); Aspartate Amino Transferase 21 U/L (0-34); BUN/Creatinine Ratio 10 Ratio (12-20); Bilirubin,Total 1.4 mg/dL (0.3-1.2); Blood Urea Nitrogen 14 mg/dL (9-23); Calcium 9.9 mg/dL (8.3-10.6); Calcium (Corrected) 9.9 mg/dL (8.5-10.1); Carbon Dioxide 22.2 mMol/L (20.0-31.0); Chloride 103 mMol/L (98-107); Creatinine (Component) 1.4 mg/dL (0.6-1.3); Estimated Creatinine Clearance 62.6 mL/min (>60); Globulin 2.7 gm/dL (2.3-3.5); Glucose 99 mg/dL (74-106); Osmolality,Calculated 279 (275-295); Potassium 3.8 mMol/L (3.4-5.1); Sodium 140 mMol/L (136-145); Total Protein 7.9 gm/dL (5.7-8.2); eGFR > 60 See Note
--- NOTE | 2024-12-11 18:51 | PC.NURSE ---
PATIENT STATED IF HE IS NOT GOING TO GET CT HE WOULD JUST RATHER LEAVE AND NOT WAIT. PATIENT SIGNED AMA FORM
== END 2024-12-11 18:53 | disposition left against medical advice (07) ==
PROVIDERS: Emergency Provider Emergency Medicine
DX: Z02.89 Encounter for other administrative examinations (principal); R00.0 Tachycardia, unspecified; F15.10 Other stimulant abuse, uncomplicated; Z53.29 Procedure and treatment not carried out because of patient's decision for other reasons
CPT/HCPCS: 36415; 80053; 80307; 80320; 81001; 85025; 93005; 99283; G0480

== ENCOUNTER 2024-12-14 19:44 | Emergency (ER) | payer MEDICAID, SELFPAY ==
[2024-12-14 20:37] VITALS: BP 170/119; BP 176/107; PULSE 137; RESP 20; TEMP 37.4; O2SAT 99
--- NOTE | 2024-12-14 21:46 | PD.EDRME ---
Rapid Medical Screening Exam RME Arrival date/time: 12/14/24 19:44 Chief Complaint: Abdominal Pain Time Seen by Provider: 12/14/24 20:26 Vital signs: Vital Signs Temperature 99.3 F 12/14/24 20:37 Pulse Rate 137 H 12/14/24 20:37 Respiratory Rate 20 12/14/24 20:37 Blood Pressure 176/107 H 12/14/24 20:37 Pulse Oximetry (%) 99 12/14/24 20:37 Oxygen Delivery Method Room Air 12/14/24 20:37 RME Narrative: 39-year-old male presents to the ED with a complaint of lower abdominal pain, rectal pain and rectal bleeding with bowel movements. He denies any fever or chills, nausea, vomiting, or diarrhea. He was seen here recently for chest pain and shortness of breath and was diagnosed with URI. He just picked up his benzonatate pills today. I have greeted and performed a focused initial assessment of this patient. A comprehensive ED assessment and evaluation of the patient, analysis of all test results, and completion of the medical decision making process will be conducted by additional ED providers.
--- NOTE | 2024-12-14 22:32 | EDNOTE_ITS ---
ED Abdominal Pain RME/HPI General Chief Complaint: Abdominal Pain Stated complaint: LOWER ABD PAIN Time seen by provider: 12/14/24 20:26 Arrival date/time: 12/14/24 19:44 RME / HPI RME / HPI narrative: 39-year-old male presents to the ED with a complaint of lower abdominal pain, rectal pain and rectal bleeding with bowel movements. He denies any fever or chills, nausea, vomiting, or diarrhea. He was seen here recently for chest pain and shortness of breath and was diagnosed with URI. He just picked up his benzonatate pills today. I have greeted and performed a focused initial assessment of this patient. A comprehensive ED assessment and evaluation of the patient, analysis of all test results, and completion of the medical decision making process will be conducted by additional ED providers. Dr. Rodriguez?s Main ED Evaluation: 39yo male presenting with multiple complaints although primarily complains of chest pain and ongoing abdominal pain x 3-4 days described as pressure in nature, no pleuritic or exertional component. Patient does have nausea, but no vomiting. Denies diarrhea, diaphoresis, palpitations, lightheadedness, dizziness, or near syncope. Patient also notes ongoing lower abdominal pain with occasional bloody stools. No urinary frequency, urgency, or dysuria. Patient does not that the amount of bleeding is tapering. He does engage in rare tobacco use, but denies any illicit drug abuse. Related Data Previous Rx's ?Medication ?Instructions ?Recorded cetirizine 5 mg-pseudoephedrine ER 1 tab PO BID PRN si nus symptoms 08/30/21 120 mg tablet,extended #14 tabs release,12hr (Zyrtec-D) diphenhydramine HCl 25 mg capsule 25 mg PO Q8H PRN all ergic symptoms 09/23/22 (Benadryl) #30 caps ibuprofen 600 mg tablet 600 mg PO QID PRN pain #20 t abs 09/23/22 ciprofloxacin HCl 500 mg tablet 500 mg PO BID #14 tabs 11/29/22 (Cipro) dicyclomine 20 mg tablet 20 mg PO BID #20 tabs metronidazole 500 mg tablet 500 mg PO BID #14 tabs cyclobenzaprine 7.5 mg tablet 7.5 mg PO TID PRN muscle spasm #30 12/03/22 tabs hydrocodone 5 mg-acetaminophen 325 1 tab PO BID PRN pa in #14 tabs 01/16/23 mg tablet hydroxyzine HCl 50 mg tablet 50 mg PO Q6H PRN anxiety #20 tabs 01/18/24 amoxicillin 875 mg-potassium 1 tab PO BID #14 tabs 09/25 clavulanate 125 mg tablet acetaminophen 325 mg tablet 650 mg (2 x 325 mg) PO TID PRN 02/11/24 pain #30 tabs ibuprofen 600 mg tablet 600 mg PO Q8H PRN pain #30 t abs 02/11/24 ibuprofen 600 mg tablet 600 mg PO Q8H PRN pain #14 t abs 02/15/24 lidocaine 5 % topical patch 2 patch topical QDAY PRN p ain #30 02/15/24 (Lidoderm) ea acetaminophen 500 mg tablet 500 mg PO Q6H PRN pain #30 tabs 09/15/24 tizanidine 4 mg tablet 4 mg PO BID PRN muscle spast icity 09/15/24 #20 tabs sumatriptan succinate 25 mg tablet 25 mg PO Q2H PRN mi graine headache 10/08/24 (Imitrex) #10 tabs albuterol sulfate 90 mcg/actuation 1 inh inhalation Q4 H PRN shortness 11/06/24 aerosol inhaler (Ventolin HFA) of breath or wheezing # 8.5 grams hydroxyzine pamoate 25 mg capsule 25 mg PO BID PRN anx iety #10 caps 11/06/24 Allergies Allergy/AdvReac Type Severity Reaction Status Date / Time No Known Allergies Allergy Verified 12/14/24 19:45 Review of Systems Review of Systems Systems Reviewed: All systems reviewed, normal except as documented Past Medical History Past Medical History NEUROLOGIC: Negative Neurological Disorders or Seizures CARDIAC: Negative Cardiac Disorders or Congestive Heart Failure RESPIRATORY: Negative Chronic Obstructive Pulmonary Disease (COPD) or Asthma GASTROINTESTINAL: Negative Gastrointestinal Disorders GENITOURINARY: Positive Genitourinary Disorders; Negative Renal Disease MUSCULOSKELETAL: Negative Musculoskeletal Disorders ENDOCRINE: Negative Endocrine Disorders, Diabetes Mellitus Type 1 or Diabetes Mellitus Type 2 HEMATOLOGIC: Negative Blood Disorders or Sickle Cell Disease OTHER HISTORY: Positive Chicken Pox; Negative Hospitalization, Blood Transfusions, Blood Transfusion Reaction, Anesthesia Reactions or Cancer Social History SMOKING STATUS: Current every day smoker SUBSTANCE USE: does not use and methamphetamine ED Exam Narrative Physical exam: GENERAL APPEARANCE: alert and oriented x 4, chronically-ill appearing, no acute distress VITALS: All vitals were reviewed and the pulse ox is 99% on room air, which is normal according to my interpretation. HEENT: Normocephalic, atraumatic; pupils equal, round, reactive to light; EOMI; mucous membranes pink, moist; oropharynx clear NECK: Supple LUNGS: CTABL; no wheezes, no rales, no rhonchi HEART: Tachycardic, regular rhythm; normal S1, S2; no murmurs ABDOMEN: non distended; soft, minimal tenderness and variable on exam BACK: no CVA tenderness EXTREMITIES: atraumatic; no edema NEUROLOGIC: awake; alert and oriented x4; cranial nerves II-XII grossly intact; no focal sensory or motor deficits PSYCHIATRIC: restricted affect SKIN: warm, dry, normal color; no rashes Course Quality Measures none Orders Category Date Time Status Occult Blood,Stool (Nursing) NOW Care 12/14/24 21:50 Active CBC Stat Lab 12/14/24 22:22 Completed Comprehensive Metabolic Panel Stat Lab 12/14/24 22:22 Completed Drug Screen,Urine Stat Lab 12/14/24 22:37 Completed Lipase Stat Lab 12/14/24 22:22 Completed Urinalysis, C/S if Indicated Stat Lab 12/14/24 22:37 Completed POTASSIUM CHL 10 mEq IVPB [Kcl Ivpb] Med 12/15/24 00:26 Active 10 meq in 100 ml IV Q1H Potassium Chloride [K-Dur] Med 12/15/24 00:25 Discontinued 40 meq PO X1 ONE Sodium Chloride 0.9% 1000 ml [Ns] 1,000 ml Med 12/15/24 00:25 Active IV 999 mls/hr Vital Signs Vital signs: Vital Signs Temperature 99.3 F 12/14/24 20:37 Pulse Rate 137 H 12/14/24 20:37 Respiratory Rate 20 12/14/24 20:37 Blood Pressure 176/107 H 12/14/24 20:37 Pulse Oximetry (%) 99 12/14/24 20:37 Oxygen Delivery Method Room Air 12/14/24 20:37 Abdominal Pain MDM MDM Narrative MDM Narrative:: Scribe Attestation: 12/14/24 - I, Tyra Ronni, am scribing for and in the presence of Dr. Rodriguez. 39yo male presenting with multiple complaints although primarily complains of chest pain and ongoing abdominal pain x 3-4 days described as pressure in nature, no pleuritic or exertional component. Patient does have nausea, but no vomiting. Please see PE findings. Lab markers demonstrate hypokalemia with K 2.6, margnally elevated WBC count of 13.7, no anemia or thrombocytopenia, normal renal function, UA without evidence of infection, tox screen positive for methamphetamine. Patient mildly hyperactive and upon bedding patient and attempting to place him on monitoring analyst, patient abruptly left AMA. Risks including seizures, coma, , and disability were described. Patient verbalized understanding and indicated he opted to follow up with his PMD. Patient alert, aware of his surroundings, and ambulating without difficulty. Dx: nonspecific chest pain, abdominal pain of unclear etiology, hypokalemia, methamphetamine abuse - chronic Patient data External records reviewed:: [facility] previous records (Per chart review, patient was seen here on 12/11/24 for history of methamphetamine abuse.) Clinical information provided by:: patient Social determinants that could affect healthcare access:: substance use Patient has the following chronic illnesses:: none How is presenting disease/condition affected by chronic disease/condition?: no chronic disease Evaluation data The following diagnostics were reviewed and interpreted by me:: lab results Lab and/or radiology exams considered but not ordered:: none Interpretation Summary: See MDM. Medications / Prescriptions Medications or Prescriptions considered but not ordered:: none Medication administrations:: Medication Administration History Sodium Chloride (Ns) 1,000 mls @ 999 mls/hr IV .Q1H1M ONE Stop: 12/15/24 01:25 Last Admin: 12/15/24 01:04 Dose: Not Given Documented By: WO Non-Admin Reason: Pt. Eloped Potassium Chloride (Kcl Ivpb) 10 meq in 100 mls @ 100 mls/hr IV Q1H ERNESTO Stop: 12/15/24 04:25 Last Admin: 12/15/24 01:04 Dose: Not Given Documented By: WO Non-Admin Reason: Pt. Eloped Discontinued Medications Potassium Chloride (Potassium Chloride 20 Meq Tabcr) 40 meq PO X1 ONE Stop: 12/15/24 00:26 Last Admin: 12/15/24 01:04 Dose: Not Given Documented By: WO Non-Admin Reason: Pt. Eloped none - patient left AMA before meds were given. Consultations Consultation(s) initiated? (list below): No Diagnosis Differential diagnosis abdominal pain: gastroenteritis and other (gastritis, dehydration, electrolyte abnormality) Most likely diagnosis given after review of the tests above:: nonspecific chest pain, abdominal pain of unclear etiology, hypokalemia, methamphetamine abuse - chronic Admission Indicated Admission indicated?: not indicated Admission Request Was there a request for admission?: No Disposition Plan Disposition Plan: other (specify) (Patient signed out AMA.) Discharge Plan Plan Patient Disposition: Left Against Medical Advice Prescriptions/Referrals Prescriptions/Med Rec: No Action cetirizine-pseudoephedrine [Zyrtec-D] 5-120 mg tablet extended release 12 hr 1 tab PO BID PRN (Reason: sinus symptoms) Qty: 14 0RF diphenhydramine HCl [Benadryl] 25 mg capsule 25 mg PO Q8H PRN (Reason: allergic symptoms) Qty: 30 0RF ibuprofen 600 mg tablet 600 mg PO QID PRN (Reason: pain) Qty: 20 0RF ciprofloxacin HCl [Cipro] 500 mg tablet 500 mg PO BID Qty: 14 0RF metronidazole 500 mg tablet 500 mg PO BID Qty: 14 0RF dicyclomine 20 mg tablet 20 mg PO BID Qty: 20 0RF hydroxyzine HCl 50 mg tablet 50 mg PO Q6H PRN (Reason: anxiety) Qty: 20 0RF amoxicillin-pot clavulanate 875-125 mg tablet 1 tab PO BID Qty: 14 0RF ibuprofen 600 mg tablet 600 mg PO Q8H PRN (Reason: pain) Qty: 30 0RF acetaminophen 325 mg tablet 650 mg PO TID PRN (Reason: pain) Qty: 30 0RF lidocaine [Lidoderm] 5 % adhesive patch,medicated 2 patch topical QDAY PRN (Reason: pain) Qty: 30 0RF Rx Instructions: leave on most painful area for up to 12 hrs ibuprofen 600 mg tablet 600 mg PO Q8H PRN (Reason: pain) Qty: 14 0RF tizanidine 4 mg tablet 4 mg PO BID PRN (Reason: muscle spasticity) Qty: 20 0RF acetaminophen 500 mg tablet 500 mg PO Q6H PRN (Reason: pain) Qty: 30 0RF hydroxyzine pamoate 25 mg capsule 25 mg PO BID PRN (Reason: anxiety) Qty: 10 0RF albuterol sulfate [Ventolin HFA] 90 mcg/actuation HFA aerosol inhaler 1 inh inhalation Q4H PRN (Reason: shortness of breath or wheezing) Qty: 8.5 0RF cyclobenzaprine 7.5 mg tablet 7.5 mg PO TID PRN (Reason: muscle spasm) Qty: 30 0RF hydrocodone-acetaminophen 5-325 mg tablet 1 tab PO BID MDD 10 PRN (Reason: pain) Qty: 14 0RF sumatriptan succinate [Imitrex] 25 mg tablet 25 mg PO Q2H PRN (Reason: migraine headache) Qty: 10 0RF Rx Instructions: do not exceed 8 doses per 24 hrs Referrals: Michael Rudolph MD [Primary Care Provider] - In 1 week Problem List Clinical Impression: Nonspecific chest pain, Methamphetamine abuse, Abdominal pain of unknown etiology, Hypokalemia Patient/Caregiver Discharge Instructions Print Language: Lithuanian
[2024-12-14 22:38] LABS: Basophils # (Auto) 0.0 Thou/mm3 (0.0-0.2); Basophils % (Auto) 0 % (0-2.5); Eosinophils # (Auto) 0.0 Thou/mm3 (0.0-0.5); Eosinophils % (Auto) 0 % (0-10); Hematocrit 42.6 % (41.0-53.0); Hemoglobin 14.4 g/dL (13.5-16.0); Immature Granulocytes Auto 0.05 Thou/mm3 (0.00-0.00); Lymphocytes # (Auto) 1.2 Thou/mm3 (1.0-4.8); Lymphocytes % (Auto) 9 % (10-50); Mean Corpuscular HGB Conc 33.8 g/dl (31.0-37.0); Mean Corpuscular Hemoglobin 31.0 pg (25.0-35.0); Mean Corpuscular Volume 92 fL (80-100); Monocytes # (Auto) 0.8 Thou/mm3 (0.0-0.8); Monocytes % (Auto) 6 % (0-12); Neutrophils # (Auto) 11.6 Thou/mm3 (1.8-7.7); Neutrophils % (Auto) 85 % (37-80); Nucleated Red Blood Cell # 0.00 Thou/mm3 (0.00-0.00); Nucleated Red Blood Cell % 0 /100 WBC (0); Platelet Count 340 Thou/mm3 (140-440); RDW Standard Deviation 41.7 fL (35.1-43.9); Red Blood Count 4.65 Miln/mm3 (4.50-5.90); White Blood Count 13.7 Thou/mm3 (3.8-10.6)
[2024-12-14 22:46] LABS: Collection Type, Urine Clean Catch; Squamous Epithelial Cell,Urine 0 /hpf (0-5)
[2024-12-14 22:54] LABS: Bilirubin,Urine Negative (Negative); Blood,Urine Negative (Negative); Clarity,Urine Clear (Clear/Hazy); Color,Urine Lt-Yellow (Lt Yel-Yel); Culture Indicated,Urine Not Indicated; Glucose, Urine 3+ (Negative); Ketones,Urine Negative (Negative); Leukocyte Esterase,Urine Negative (Negative); Nitrite,Urine Negative (Negative); PH,Urine 6.0 (5.0-7.0); Protein,Urine Negative (Neg - Trace); RBC,Urine 1 /hpf (0-3); Specific Gravity,Urine 1.009 (1.001-1.035); Urobilinogen,Urine Negative mg/dL (0.0-1.0); WBC,Urine 1 /hpf (0-5)
[2024-12-14 23:19] LABS: Alanine Aminotransferase 12 U/L (10-49); Albumin, Serum 5.1 gm/dL (3.5-5.0); Albumin/Globulin Ratio 2.1 (1.2-2.2); Alkaline Phosphatase 73 U/L (46-116); Anion Gap 19 (7-16); Aspartate Amino Transferase 19 U/L (0-34); BUN/Creatinine Ratio 5 Ratio (12-20); Bilirubin,Total 0.5 mg/dL (0.3-1.2); Blood Urea Nitrogen 7 mg/dL (9-23); Calcium 9.8 mg/dL (8.3-10.6); Calcium (Corrected) 9.8 mg/dL (8.5-10.1); Carbon Dioxide 19.1 mMol/L (20.0-31.0); Chloride 101 mMol/L (98-107); Creatinine (Component) 1.3 mg/dL (0.6-1.3); Globulin 2.4 gm/dL (2.3-3.5); Glucose 216 mg/dL (74-106); Osmolality,Calculated 282 (275-295); Sodium 139 mMol/L (136-145); Total Protein 7.5 gm/dL (5.7-8.2); eGFR > 60 See Note
[2024-12-14 23:22] LABS: Potassium 2.6 mMol/L (3.4-5.1)
[2024-12-14 23:52] LABS: Lipase 31 U/L (12-53)
[2024-12-14 23:55] LABS: Amphetamine/Methamp Scrn,U Positive (Negative); Barbiturate Screen,Urine Negative (Negative); Benzodiazepines Screen,Urine Negative (Negative); Benzoylecgonine Screen, Ur Negative (Negative); Fentanyl Screen,Urine Negative (Negative); Opiate Screen,Urine Negative (Negative); THC Screen,Urine Negative (Negative)
--- NOTE | 2024-12-15 01:09 | PC.NURSE ---
Patient expressed desire to leave facility before completion of medical treatment. MD was notified and met with patient at bedside. Physician thoroughly explained potential risks of leaving AMA, including but not limited to worsening of condition, disability, and . Patient demonstrated understanding by repeating back information and continued to request discharge.
== END 2024-12-15 01:09 | disposition left against medical advice (07) ==
PROVIDERS: Physician Assistant; Emergency Provider Emergency Medicine; PCP Family Medicine
DX: R07.89 Other chest pain (principal); F15.10 Other stimulant abuse, uncomplicated; E87.6 Hypokalemia; R10.30 Lower abdominal pain, unspecified
CPT/HCPCS: 36415; 80053; 80307; 81001; 83690; 85025; 99283

== ENCOUNTER 2024-12-20 07:32 | Emergency (ER) | payer MEDICAID, SELFPAY ==
[2024-12-20 07:34] VITALS: BP 174/126; BP 183/118; PULSE 118; RESP 19; TEMP 36.9; O2SAT 98; BMI 21.1
[2024-12-20 07:40] VITALS: PULSE 122; RESP 18; O2SAT 99
--- NOTE | 2024-12-20 07:45 | PC.NURSE ---
PT ARRIVED WAS BEING PLACED ON STRETCHER, GOT ON THE STRETCHER, DECIDED HE NEEDED TO PEE, THIS RN OFFERED HIM A URINAL HE WAS ALSO SAYING HE NEEDED OXYGEN. PER EMS PT IS 99% ON RA. PT REFUSED URINAL STATING HE WANTS TO WALK TO THE BR, PT WALKS TO BR INDEPENDENTLY W/STEADY GAIT, GETS TO THE DOOR AND BEGINS SAYING HE WANTS O2. THIS RN, ATTENDANT ARCADE, [employer]EVERMAN, AND EMS REQUEST PT TO GO BACK TO ROOM TO BE CONNECTED TO SPO2 SENSOR AND FOR EVALUATION. PT REFUSED, STATED HE IS JUST GOING TO GO SEE HIS PCP AND FILM PRODUCER THE MEDICATION THAT THEY PRESCRIBED HIM YESTERDAY FOR THE SAME SYMPTOMS. RN, ATTENDANT ARCADE, [employer]MAN AND EMS MADE MULTIPLE ATTEMPTS TO EDUCATE PT TO STAY AND GET AN EVALUATION, PT THEN PROCEEDED TO WALK OUT. LBMS.
== END 2024-12-20 07:50 | disposition left against medical advice (07) ==
LOC: SERX 07:58
PROVIDERS: Emergency Provider Emergency Medicine
DX: Z53.21 Procedure and treatment not carried out due to patient leaving prior to being seen by health care provider (principal)
CPT/HCPCS: 99282

== ENCOUNTER 2024-12-20 09:05 | Emergency (ER) | payer MEDICAID, SELFPAY ==
[2024-12-20 09:06] VITALS: BMI 21.1
--- NOTE | 2024-12-20 09:15 | EKG_ITS ---
[facility] Test Date: 2024-12-20 Pat Name: DAIANA MEDINA Department: Room: - Gender: Male Social Services Manager: : 1985 Requested By: ED Temporary Provider Order Number: [id number] Reading MD: ED Temporary Provider Measurements Intervals [place] Rate: 123 P: 75 CA: 161 QRS: 70 QRSD: 82 T: 73 QT: 288 QTc: 413 Interpretive Statements SINUS TACHYCARDIA ABNORMAL RHYTHM ECG Compared to ECG 12/11/2024 16:51:20 No significant changes /store/S0/[id number]
[2024-12-20 09:18] VITALS: BP 164/119; PULSE 123; RESP 18; TEMP 36.8; O2SAT 99
--- NOTE | 2024-12-20 09:23 | PD.EDRME ---
Rapid Medical Screening Exam RME Arrival date/time: 12/20/24 09:05 39-year-old male with a history of methamphetamine abuse, presents to the emergency room with a chief complaint of 10 out of 10 chest pain, shakiness, numbness to the bilateral extremities, sweating since last night at 6 PM. I have greeted and performed a focused initial assessment of this patient. A comprehensive ED assessment and evaluation of the patient, analysis of all test results, and completion of the medical decision making process will be conducted by additional ED providers. Chief Complaint: Shortness of Breath/Dyspnea Time Seen by Provider: 12/20/24 09:11 Vital signs: Vital Signs Temperature 98.3 F 12/20/24 09:18 Pulse Rate 123 H 12/20/24 09:18 Respiratory Rate 18 12/20/24 09:18 Blood Pressure 164/119 H 12/20/24 09:18 Pulse Oximetry (%) 99 12/20/24 09:18 Oxygen Delivery Method Room Air 12/20/24 09:18 Vital signs reviewed by provider: Yes
[2024-12-20 10:26] LABS: Basophils # (Auto) 0.0 Thou/mm3 (0.0-0.2); Basophils % (Auto) 0 % (0-2.5); Eosinophils # (Auto) 0.0 Thou/mm3 (0.0-0.5); Eosinophils % (Auto) 0 % (0-10); Hematocrit 43.1 % (41.0-53.0); Hemoglobin 14.3 g/dL (13.5-16.0); Immature Granulocytes Auto 0.04 Thou/mm3 (0.00-0.00); Lymphocytes # (Auto) 1.4 Thou/mm3 (1.0-4.8); Lymphocytes % (Auto) 10 % (10-50); Mean Corpuscular HGB Conc 33.2 g/dl (31.0-37.0); Mean Corpuscular Hemoglobin 31.4 pg (25.0-35.0); Mean Corpuscular Volume 95 fL (80-100); Monocytes # (Auto) 0.8 Thou/mm3 (0.0-0.8); Monocytes % (Auto) 6 % (0-12); Neutrophils # (Auto) 11.5 Thou/mm3 (1.8-7.7); Neutrophils % (Auto) 83 % (37-80); Nucleated Red Blood Cell # 0.00 Thou/mm3 (0.00-0.00); Nucleated Red Blood Cell % 0 /100 WBC (0); Platelet Count 339 Thou/mm3 (140-440); RDW Standard Deviation 45.2 fL (35.1-43.9); Red Blood Count 4.55 Miln/mm3 (4.50-5.90); White Blood Count 13.8 Thou/mm3 (3.8-10.6)
[2024-12-20 10:40] LABS: INR 1.0 (0.9-1.3); Partial Thromboplastin Time 26.9 Seconds (22.0-36.0); Prothrombin Time 11.2 Seconds (9.0-12.2)
[2024-12-20 10:48] LABS: B-Type Natriuretic Peptide 173 pg/mL (0-100)
[2024-12-20 10:59] LABS: Alanine Aminotransferase 9 U/L (10-49); Albumin, Serum 5.0 gm/dL (3.5-5.0); Albumin/Globulin Ratio 2.1 (1.2-2.2); Alkaline Phosphatase 74 U/L (46-116); Anion Gap 15 (7-16); Aspartate Amino Transferase 20 U/L (0-34); BUN/Creatinine Ratio 10 Ratio (12-20); Bilirubin,Total 0.4 mg/dL (0.3-1.2); Blood Urea Nitrogen 10 mg/dL (9-23); Calcium 10.2 mg/dL (8.3-10.6); Calcium (Corrected) 10.2 mg/dL (8.5-10.1); Carbon Dioxide 23.5 mMol/L (20.0-31.0); Chloride 104 mMol/L (98-107); Creatinine (Component) 1.0 mg/dL (0.6-1.3); Estimated Creatinine Clearance 87.6 mL/min (>60); Globulin 2.4 gm/dL (2.3-3.5); Glucose 128 mg/dL (74-106); LDH (Lactate Dehydrogenase) 209 U/L (120-246); Magnesium 1.4 mg/dL (1.6-2.6); Osmolality,Calculated 284 (275-295); Potassium 4.1 mMol/L (3.4-5.1); Sodium 142 mMol/L (136-145); Total Protein 7.4 gm/dL (5.7-8.2); Troponin I < 0.020 ng/mL (0.0-0.045); eGFR > 60 See Note
--- NOTE | 2024-12-20 17:25 | PC.NURSE ---
NAx 3 at 1630, 1637, 1701
== END 2024-12-20 17:00 | disposition left against medical advice (07) ==
LOC: SERX 10:13
PROVIDERS: Nurse Practitioner Family; Emergency Provider Emergency Medicine; PCP Family Medicine
DX: R07.9 Chest pain, unspecified (principal); F15.10 Other stimulant abuse, uncomplicated; Z53.29 Procedure and treatment not carried out because of patient's decision for other reasons; R20.0 Anesthesia of skin
CPT/HCPCS: 36415; 80053; 80307; 81001; 83615; 83735; 83880; 84484; 85025; 85610; 85730; 93005; 99283

== ENCOUNTER 2024-12-20 20:39 | Emergency (ER) | payer MEDICAID, SELFPAY ==
[2024-12-20 20:43] VITALS: BP 155/108; BP 157/110; PULSE 108; RESP 18; TEMP 36.6; O2SAT 98
[2024-12-20 21:04] VITALS: PULSE 118; RESP 18; O2SAT 98; BMI 21.4
--- NOTE | 2024-12-20 21:50 | XR_ITS ---
Examination: CT brain head without contrast. 2-D sagittal coronal reconstructions Date and time of exam:December 21, 2019 5:11 PM INDICATIONS: Headaches and head pressure beginning 3 days ago, syncopal episodes December 10, 2024 CTDI: vol (mGy):47.1 DLP: (mGycm): 938 Technique: Multiple CT axial sections of the brain have been obtained, 5 mm slice thickness. Contrast has not been administered. 2-D sagittal, coronal reconstructions have been obtained Low dose protocols were performed. One or more of the following dose reduction techniques were used; automated exposure control, adjustment of the mA and/or KV according to patient size, use of iterative reconstruction technique. Findings: No significant ventricular enlargement. Intra-axial or extra-axial hemorrhage density is not seen. No mass effect or midline shift Basal cisterns are not remarkable. Fourth ventricle is midline. Cranial vault intact. Impression: Negative for acute hemorrhage, mass effect or midline shift Advise clinical correlation and follow-up accordingly
--- NOTE | 2024-12-21 00:26 | PD.EDHA ---
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 and shakiness patient eloped prior to be seen by the physician patient states that the chest pain and the shakiness all the symptoms in the morning was resolved only headache nausea vomiting today thus decided to start consult here in the emergency room denies any injury or trauma Related Data Previous Rx's ?Medication ?Instructions ?Recorded cetirizine 5 mg-pseudoephedrine ER 1 tab PO BID PRN sinus symptoms 08/30/21 120 mg tablet,extended #14 tabs release,12hr (Zyrtec-D) diphenhydramine HCl 25 mg capsule 25 mg PO Q8H PRN allergic symptoms 09/23/22 (Benadryl) #30 caps ibuprofen 600 mg tablet 600 mg PO QID PRN pain #20 tabs 09/23/22 ciprofloxacin HCl 500 mg tablet 500 mg PO BID #14 tabs 11/29/22 (Cipro) dicyclomine 20 mg tablet 20 mg PO BID #20 tabs 11/29/22 metronidazole 500 mg tablet 500 mg PO BID #14 tabs 11/29/22 cyclobenzaprine 7.5 mg tablet 7.5 mg PO TID PRN muscle spasm #30 12/03/22 tabs hydrocodone 5 mg-acetaminophen 325 1 tab PO BID PRN pain #14 tabs 01/16/23 mg tablet hydroxyzine HCl 50 mg tablet 50 mg PO Q6H PRN anxiety #20 tabs 01/18/24 amoxicillin 875 mg-potassium 1 tab PO BID #14 tabs 02/07/24 clavulanate 125 mg tablet acetaminophen 325 mg tablet 650 mg (2 x 325 mg) PO TID PRN 02/11/24 pain #30 tabs ibuprofen 600 mg tablet 600 mg PO Q8H PRN pain #30 tabs 02/11/24 ibuprofen 600 mg tablet 600 mg PO Q8H PRN pain #14 tabs 02/15/24 lidocaine 5 % topical patch 2 patch topical QDAY PRN pain #30 02/15/24 (Lidoderm) ea acetaminophen 500 mg tablet 500 mg PO Q6H PRN pain #30 tabs 09/15/24 tizanidine 4 mg tablet 4 mg PO BID PRN muscle spasticity 09/15/24 #20 tabs sumatriptan succinate 25 mg tablet 25 mg PO Q2H PRN migraine headache 10/08/24 (Imitrex) #10 tabs albuterol sulfate 90 mcg/actuation 1 inh inhalation Q4H PRN shortness 11/06/24 aerosol inhaler (Ventolin HFA) of breath or wheezing #8.5 grams hydroxyzine pamoate 25 mg capsule 25 mg PO BID PRN anxiety #10 caps 11/06/24 ibuprofen 800 mg tablet 800 mg PO Q8H PRN pain #20 tabs 12/21/24 ondansetron 4 mg disintegrating 4 mg PO Q8H PRN nausea and 12/21/24 tablet vomiting #20 tabs Allergies Allergy/AdvReac Type Severity Reaction Status Date / Time No Known Allergies Allergy Verified 12/20/24 21:03 Course Orders Category Date Time Status CT head/brain wo con Stat Exams 12/20/24 21:50 Completed HYDROcodone*/APAP 5/325 [[place] 5/325] Med 12/21/24 00:19 Discontinued 1 tab PO X1 ONE Ondansetron Odt [Zofran Odt] Med 12/21/24 00:19 Discontinued 4 mg PO X1 ONE Vital Signs Vital signs: Vital Signs Temperature 98 F 12/20/24 20:43 Pulse Rate 108 H 12/20/24 20:43 Respiratory Rate 18 12/20/24 20:43 Blood Pressure 157/110 H 12/20/24 20:43 Pulse Oximetry (%) 98 12/20/24 20:43 Oxygen Delivery Method Room Air 12/20/24 20:43 Headache Medications / Prescriptions Medication administrations:: Medication Administration History Discontinued Medications Hydrocodone Bitart/Acetaminophen (Hydrocodone/Apap 5/325 Tablet) 1 tab PO X1 ONE Stop: 12/21/24 00:20 Ondansetron HCl (Ondansetron Odt 4 Mg Tabrap) 4 mg PO X1 ONE; Protocol Stop: 12/21/24 00:20 Discharge Plan Plan Patient Disposition: HOME (Self Care) Patient condition on transfer: Stable Prescriptions/Referrals Prescriptions/Med Rec: New ondansetron 4 mg tablet,disintegrating 4 mg PO Q8H PRN (Reason: nausea and vomiting) Qty: 20 0RF ibuprofen 800 mg tablet 800 mg PO Q8H PRN (Reason: pain) Qty: 20 0RF No Action cetirizine-pseudoephedrine [Zyrtec-D] 5-120 mg tablet extended release 12 hr 1 tab PO BID PRN (Reason: sinus symptoms) Qty: 14 0RF diphenhydramine HCl [Benadryl] 25 mg capsule 25 mg PO Q8H PRN (Reason: allergic symptoms) Qty: 30 0RF ibuprofen 600 mg tablet 600 mg PO QID PRN (Reason: pain) Qty: 20 0RF ciprofloxacin HCl [Cipro] 500 mg tablet 500 mg PO BID Qty: 14 0RF metronidazole 500 mg tablet 500 mg PO BID Qty: 14 0RF dicyclomine 20 mg tablet 20 mg PO BID Qty: 20 0RF hydroxyzine HCl 50 mg tablet 50 mg PO Q6H PRN (Reason: anxiety) Qty: 20 0RF amoxicillin-pot clavulanate 875-125 mg tablet 1 tab PO BID Qty: 14 0RF ibuprofen 600 mg tablet 600 mg PO Q8H PRN (Reason: pain) Qty: 30 0RF acetaminophen 325 mg tablet 650 mg PO TID PRN (Reason: pain) Qty: 30 0RF lidocaine [Lidoderm] 5 % adhesive patch,medicated 2 patch topical QDAY PRN (Reason: pain) Qty: 30 0RF Rx Instructions: leave on most painful area for up to 12 hrs ibuprofen 600 mg tablet 600 mg PO Q8H PRN (Reason: pain) Qty: 14 0RF tizanidine 4 mg tablet 4 mg PO BID PRN (Reason: muscle spasticity) Qty: 20 0RF acetaminophen 500 mg tablet 500 mg PO Q6H PRN (Reason: pain) Qty: 30 0RF hydroxyzine pamoate 25 mg capsule 25 mg PO BID PRN (Reason: anxiety) Qty: 10 0RF albuterol sulfate [Ventolin HFA] 90 mcg/actuation HFA aerosol inhaler 1 inh inhalation Q4H PRN (Reason: shortness of breath or wheezing) Qty: 8.5 0RF cyclobenzaprine 7.5 mg tablet 7.5 mg PO TID PRN (Reason: muscle spasm) Qty: 30 0RF hydrocodone-acetaminophen 5-325 mg tablet 1 tab PO BID MDD 10 PRN (Reason: pain) Qty: 14 0RF sumatriptan succinate [Imitrex] 25 mg tablet 25 mg PO Q2H PRN (Reason: migraine headache) Qty: 10 0RF Rx Instructions: do not exceed 8 doses per 24 hrs Referrals: No Primary/Family,Physician [Primary Care Provider] - In 1 week Problem List Clinical Impression: Headache Patient/Caregiver Discharge Instructions Education Materials: Self-Care for Headaches Additional Instructions: Follow-up with your primary care physician in 2 days for reevaluation and to be referred to neurologist for further evaluation and treatment of your headache recurrence worsening stent worsening symptoms or any emergent concern call 911 or go to the nearest emergency room take your medication as directed increase water intake keep hydrated spatulate Gatorade for hydration Print Language: [place] Islander Stand Alone Forms: Selin Award Info., Patient Portal Info Letter PA/TRAVEL ACCOMMODATION INSPECTOR Supervising Physician PA/TRAVEL ACCOMMODATION INSPECTOR Supervising Physician: dr boston
[2024-12-21] MEDS: ONDANSETRON ODT 4 MG TABRAP PO (00:41)
[2024-12-21] MEDS: HYDROcodone/APAP 5/325 TABLET 1 TAB PO (00:41)
== END 2024-12-21 02:00 | disposition home or self-care (01) ==
PROVIDERS: Emergency Provider Emergency Medicine
DX: R51.9 Headache, unspecified (principal)
CPT/HCPCS: 70450; 99283; Q0162; A9270

== ENCOUNTER 2024-12-21 16:31 | Emergency (ER) | payer MEDICAID, SELFPAY ==
[2024-12-21 16:37] VITALS: PULSE 130
--- NOTE | 2024-12-21 16:37 | EKG_ITS ---
[facility] Test Date: 2024-12-21 Pat Name: DAIANA MEDINA Department: Room: - Gender: Male Distribution Analyst: : 1985 Requested By: Chuy Keller Order Number: [id number] Reading MD: Chuy Keller Measurements Intervals [place] Rate: 125 P: 79 CT: 148 QRS: 58 QRSD: 82 T: 73 QT: 270 QTc: 390 Interpretive Statements SINUS TACHYCARDIA ABNORMAL RHYTHM ECG Compared to ECG 12/20/2024 09:19:48 No significant changes /store/S0/[id number]
--- NOTE | 2024-12-21 16:37 | XR_ITS ---
Examination: PA chest single view TECHNIQUE: Upright PA chest single view Date and time: December 21, 2024 1652 hours Comparison December 10, 2024 INDICATIONS: Chest pain beginning 2 days ago. FINDINGS: Normal heart size Lungs are clear. The osseous structures are intact IMPRESSION: No active disease
[2024-12-21 16:42] VITALS: BP 154/118; BP 184/138; PULSE 124; RESP 18; TEMP 37.2; O2SAT 95; BMI 21.1
[2024-12-21 17:44] LABS: Basophils # (Auto) 0.0 Thou/mm3 (0.0-0.2); Basophils % (Auto) 0 % (0-2.5); Eosinophils # (Auto) 0.0 Thou/mm3 (0.0-0.5); Eosinophils % (Auto) 0 % (0-10); Hematocrit 47.0 % (41.0-53.0); Hemoglobin 15.4 g/dL (13.5-16.0); Immature Granulocytes Auto 0.03 Thou/mm3 (0.00-0.00); Lymphocytes # (Auto) 1.8 Thou/mm3 (1.0-4.8); Lymphocytes % (Auto) 19 % (10-50); Mean Corpuscular HGB Conc 32.8 g/dl (31.0-37.0); Mean Corpuscular Hemoglobin 30.4 pg (25.0-35.0); Mean Corpuscular Volume 93 fL (80-100); Monocytes # (Auto) 0.7 Thou/mm3 (0.0-0.8); Monocytes % (Auto) 8 % (0-12); Neutrophils # (Auto) 7.0 Thou/mm3 (1.8-7.7); Neutrophils % (Auto) 73 % (37-80); Nucleated Red Blood Cell # 0.00 Thou/mm3 (0.00-0.00); Nucleated Red Blood Cell % 0 /100 WBC (0); Platelet Count 382 Thou/mm3 (140-440); RDW Standard Deviation 43.8 fL (35.1-43.9); Red Blood Count 5.06 Miln/mm3 (4.50-5.90); White Blood Count 9.6 Thou/mm3 (3.8-10.6)
--- NOTE | 2024-12-21 17:53 | PD.EDARRY ---
ED Arrhythmia Palp. RME/HPI General Chief Complaint: General Adult/Misc Complain Stated Complaint: FEELING SICK Time Seen by Provider: 12/21/24 16:36 Source: patient and EMS Arrival date/time: 12/21/24 16:31 Mode of arrival: EMS Limitations: no limitations RME / HPI RME / HPI narrative: Patient is a 39-year-old male with history anxiety and polysubstance abuse. He is here today with a 2 to 3-day history of fatigue, palpitations, and increased anxiety. He denies any syncope. Has no fevers or chills. Has abdominal pain, nausea, vomiting. Has no lower leg edema. He has no other acute complaints. Related Data Previous Rx's ?Medication ?Instructions ?Recorded cetirizine 5 mg-pseudoephedrine ER 1 tab PO BID PRN sinus symptoms 08/30/21 120 mg tablet,extended #14 tabs release,12hr (Zyrtec-D) diphenhydramine HCl 25 mg capsule 25 mg PO Q8H PRN allergic symptoms 09/23/22 (Benadryl) #30 caps ibuprofen 600 mg tablet 600 mg PO QID PRN pain #20 tabs 09/23/22 ciprofloxacin HCl 500 mg tablet 500 mg PO BID #14 tabs 11/29/22 (Cipro) dicyclomine 20 mg tablet 20 mg PO BID #20 tabs 11/29/22 metronidazole 500 mg tablet 500 mg PO BID #14 tabs 11/29/22 cyclobenzaprine 7.5 mg tablet 7.5 mg PO TID PRN muscle spasm #30 12/03/22 tabs hydrocodone 5 mg-acetaminophen 325 1 tab PO BID PRN pain #14 tabs 01/16/23 mg tablet hydroxyzine HCl 50 mg tablet 50 mg PO Q6H PRN anxiety #20 tabs 01/18/24 amoxicillin 875 mg-potassium 1 tab PO BID #14 tabs 02/07/24 clavulanate 125 mg tablet acetaminophen 325 mg tablet 650 mg (2 x 325 mg) PO TID PRN 02/11/24 pain #30 tabs ibuprofen 600 mg tablet 600 mg PO Q8H PRN pain #30 tabs 02/11/24 ibuprofen 600 mg tablet 600 mg PO Q8H PRN pain #14 tabs 02/15/24 lidocaine 5 % topical patch 2 patch topical QDAY PRN pain #30 02/15/24 (Lidoderm) ea acetaminophen 500 mg tablet 500 mg PO Q6H PRN pain #30 tabs 09/15/24 tizanidine 4 mg tablet 4 mg PO BID PRN muscle spasticity 09/15/24 #20 tabs sumatriptan succinate 25 mg tablet 25 mg PO Q2H PRN migraine headache 10/08/24 (Imitrex) #10 tabs albuterol sulfate 90 mcg/actuation 1 inh inhalation Q4H PRN shortness 11/06/24 aerosol inhaler (Ventolin HFA) of breath or wheezing #8.5 grams hydroxyzine pamoate 25 mg capsule 25 mg PO BID PRN anxiety #10 caps 11/06/24 ibuprofen 800 mg tablet 800 mg PO Q8H PRN pain #20 tabs 12/21/24 ondansetron 4 mg disintegrating 4 mg PO Q8H PRN nausea and 12/21/24 tablet vomiting #20 tabs Allergies Allergy/AdvReac Type Severity Reaction Status Date / Time No Known Allergies Allergy Verified 12/21/24 19:03 Review of Systems Review of Systems Systems Reviewed: All systems reviewed, normal except as documented ED Exam General Limitations: Present no limitations General appearance: Present anxious Head Head exam: Present atraumatic Eye Eye exam: Present normal appearance, PERRL and EOMI ENT ENT exam: Present normal exam, normal oropharynx and mucous membranes moist Neck Neck exam: Present normal inspection, full ROM and trachea midline Chest Chest inspection: Present normal inspection and symmetric chest wall rise Respiratory Respiratory exam: Present normal lung sounds bilaterally Cardiovascular Cardiovascular exam: Present tachycardia and normal heart sounds Abdominal Exam Abdominal exam: Present soft and normal bowel sounds Extremities Exam Extremities exam: Present normal inspection and full ROM Back Exam Back exam: Present normal inspection and full ROM Neurological Exam Neurological exam: Present alert and oriented X3 Psychiatric Psychiatric exam: Present normal affect and anxious Skin Skin exam: Present warm, dry, intact and normal color Course Quality Measures none Orders Category Date Time Status EKG (ED ONLY) *Do not use* NOW Care 12/21/24 16:37 Completed EKG (ED Only) Stat Exams 12/21/24 16:37 Draft XR chest 1V Stat Exams 12/21/24 16:37 Completed Alcohol, Blood Medical Stat Lab 12/21/24 17:15 Received BNP [B-Type Natriuretic Peptide] Stat Lab 12/21/24 17:15 Received CBC Stat Lab 12/21/24 17:15 Completed CMP [Comprehensive Metabolic Panel] Stat Lab 12/21/24 17:15 Received Drug Screen,Urine Stat Lab 12/21/24 16:37 Ordered Lipase Stat Lab 12/21/24 17:15 Received Mag [Magnesium] Stat Lab 12/21/24 17:15 Received TSH [Thyroid Stimulating Hormone] Stat Lab 12/21/24 17:15 Received Troponin I Stat Lab 12/21/24 17:15 Received Vital Signs Vital signs: Vital Signs Temperature 99.0 F 12/21/24 16:42 Pulse Rate 124 H 12/21/24 16:42 Respiratory Rate 18 12/21/24 16:42 Blood Pressure 184/138 H 12/21/24 16:42 Pulse Oximetry (%) 95 12/21/24 16:42 Oxygen Delivery Method Room Air 12/21/24 16:42 Arrhythmia/Palpitations MDM Narrative MDM Narrative:: Patient is a 39-year-old male with history anxiety and polysubstance abuse. He is here today with a 2 to 3-day history of fatigue, palpitations, and increased anxiety. He denies any syncope. Has no fevers or chills. Has abdominal pain, nausea, vomiting. Has no lower leg edema. He has no other acute complaints. On exam, patient is nontoxic-appearing but anxious appearing. Vital signs are stable. Work appears essentially unremarkable with exception of a positive methamphetamine screen. We discussed the need to discontinue substance abuse. Follow-up with his primary care provider. Consider cognitive behavioral therapy. Consider referral to psychiatry for management of anxiety. Return as needed for any worsening emergent changes. Patient data External records reviewed:: None Clinical information provided by:: patient and EMS Social determinants that could affect healthcare access:: substance use Patient has the following chronic illnesses:: Anxiety, methamphetamine abuse How is presenting disease/condition affected by chronic disease/condition?: exacerbated by Evaluation data The following diagnostics were reviewed and interpreted by me:: EKG tracing(s) (Sinus tachycardia at [address] changes or dynamic T waves. Voltage criteria is present for LVH.) Lab and/or radiology exams considered but not ordered:: n/a Interpretation Summary: Positive methamphetamine screen Medications / Prescriptions Medications or Prescriptions considered but not ordered:: n/a Medication administrations:: Hydroxyzine Consultations Consultation(s) initiated? (list below): No Diagnosis Most likely diagnosis given after review of the tests above:: Methamphetamine abuse Admission Indicated Admission indicated?: not indicated Admission Request Was there a request for admission?: No Disposition Plan Disposition Plan: Discharge Discharge Attestation Discharge Attestation: The patient and all family members were given an opportunity to ask questions and understood the discharge instructions. Discharge instructions specifically effects, indications for sooner follow up or return to the emergency department, and the expected course of current diagnosis. Patient condition: Stable Discharge Plan Plan Patient Disposition: HOME (Self Care) Patient condition on transfer: Stable Prescriptions/Referrals Prescriptions/Med Rec: No Action cetirizine-pseudoephedrine [Zyrtec-D] 5-120 mg tablet extended release 12 hr 1 tab PO BID PRN (Reason: sinus symptoms) Qty: 14 0RF diphenhydramine HCl [Benadryl] 25 mg capsule 25 mg PO Q8H PRN (Reason: allergic symptoms) Qty: 30 0RF ibuprofen 600 mg tablet 600 mg PO QID PRN (Reason: pain) Qty: 20 0RF ciprofloxacin HCl [Cipro] 500 mg tablet 500 mg PO BID Qty: 14 0RF metronidazole 500 mg tablet 500 mg PO BID Qty: 14 0RF dicyclomine 20 mg tablet 20 mg PO BID Qty: 20 0RF hydroxyzine HCl 50 mg tablet 50 mg PO Q6H PRN (Reason: anxiety) Qty: 20 0RF amoxicillin-pot clavulanate 875-125 mg tablet 1 tab PO BID Qty: 14 0RF ibuprofen 600 mg tablet 600 mg PO Q8H PRN (Reason: pain) Qty: 30 0RF acetaminophen 325 mg tablet 650 mg PO TID PRN (Reason: pain) Qty: 30 0RF lidocaine [Lidoderm] 5 % adhesive patch,medicated 2 patch topical QDAY PRN (Reason: pain) Qty: 30 0RF Rx Instructions: leave on most painful area for up to 12 hrs ibuprofen 600 mg tablet 600 mg PO Q8H PRN (Reason: pain) Qty: 14 0RF tizanidine 4 mg tablet 4 mg PO BID PRN (Reason: muscle spasticity) Qty: 20 0RF acetaminophen 500 mg tablet 500 mg PO Q6H PRN (Reason: pain) Qty: 30 0RF hydroxyzine pamoate 25 mg capsule 25 mg PO BID PRN (Reason: anxiety) Qty: 10 0RF albuterol sulfate [Ventolin HFA] 90 mcg/actuation HFA aerosol inhaler 1 inh inhalation Q4H PRN (Reason: shortness of breath or wheezing) Qty: 8.5 0RF cyclobenzaprine 7.5 mg tablet 7.5 mg PO TID PRN (Reason: muscle spasm) Qty: 30 0RF hydrocodone-acetaminophen 5-325 mg tablet 1 tab PO BID MDD 10 PRN (Reason: pain) Qty: 14 0RF sumatriptan succinate [Imitrex] 25 mg tablet 25 mg PO Q2H PRN (Reason: migraine headache) Qty: 10 0RF Rx Instructions: do not exceed 8 doses per 24 hrs ondansetron 4 mg tablet,disintegrating 4 mg PO Q8H PRN (Reason: nausea and vomiting) Qty: 20 0RF ibuprofen 800 mg tablet 800 mg PO Q8H PRN (Reason: pain) Qty: 20 0RF Referrals: No Primary/Family,Physician [Primary Care Provider] - In 1 week Problem List Clinical Impression: Anxiety, Methamphetamine abuse Patient/Caregiver Discharge Instructions Education Materials: Signs of Addiction: Social Use, ED Anxiety Reaction Additional Instructions: - Contact your primary doctor. Consider cognitive behavioral therapy. Consider referral to psychiatry for medical management. -Discontinue substance abuse - Return as needed for any worsening or emergent changes. Print Language: Gabonese Stand Alone Forms: [employer] Award Info., Patient Portal Info Letter
[2024-12-21 17:58] LABS: B-Type Natriuretic Peptide 33 pg/mL (0-100)
[2024-12-21 18:04] LABS: Alanine Aminotransferase 10 U/L (10-49); Albumin, Serum 5.1 gm/dL (3.5-5.0); Albumin/Globulin Ratio 2.0 (1.2-2.2); Alcohol, Blood Medical < 3.0 mg/dL (0-10.0); Alkaline Phosphatase 79 U/L (46-116); Anion Gap 12 (7-16); Aspartate Amino Transferase 21 U/L (0-34); BUN/Creatinine Ratio 10 Ratio (12-20); Bilirubin,Total 0.7 mg/dL (0.3-1.2); Blood Urea Nitrogen 10 mg/dL (9-23); Calcium 10.6 mg/dL (8.3-10.6); Calcium (Corrected) 10.6 mg/dL (8.5-10.1); Carbon Dioxide 27.3 mMol/L (20.0-31.0); Chloride 102 mMol/L (98-107); Creatinine (Component) 1.0 mg/dL (0.6-1.3); Estimated Creatinine Clearance 87.6 mL/min (>60); Globulin 2.6 gm/dL (2.3-3.5); Glucose 101 mg/dL (74-106); Lipase 24 U/L (12-53); Magnesium 1.6 mg/dL (1.6-2.6); Osmolality,Calculated 280 (275-295); Potassium 4.0 mMol/L (3.4-5.1); Sodium 141 mMol/L (136-145); Thyroid Stimulating Hormone 2.15 uIU/mL (0.55-4.78); Total Protein 7.7 gm/dL (5.7-8.2); Troponin I < 0.020 ng/mL (0.0-0.045); eGFR > 60 See Note
[2024-12-21 18:59] VITALS: BP 144/104; PULSE 115; RESP 18; TEMP 36.3; O2SAT 99
[2024-12-21 20:10] LABS: Amphetamine/Methamp Scrn,U Positive (Negative); Barbiturate Screen,Urine Negative (Negative); Benzodiazepines Screen,Urine Negative (Negative); Benzoylecgonine Screen, Ur Negative (Negative); Fentanyl Screen,Urine Negative (Negative); Opiate Screen,Urine Positive (Negative); THC Screen,Urine Negative (Negative)
[2024-12-21 20:30] VITALS: BP 124/85; PULSE 100; RESP 18; O2SAT 98
== END 2024-12-21 20:30 | disposition home or self-care (01) ==
PROVIDERS: Physician Assistant Medical; Emergency Provider Family Medicine
DX: F41.9 Anxiety disorder, unspecified (principal); F15.10 Other stimulant abuse, uncomplicated; R00.2 Palpitations
CPT/HCPCS: 36415; 71045; 80053; 80307; 80320; 83690; 83735; 83880; 84443; 84484; 85025; 93005; 99283; A9270; G0480

== ENCOUNTER 2024-12-23 18:34 | Emergency (ER) | payer MEDICAID, SELFPAY ==
[2024-12-23 18:35] VITALS: PULSE 70; RESP 18; O2SAT 98; BMI 21.1
--- NOTE | 2024-12-23 18:42 | EKG_ITS ---
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
[2024-12-23 18:50] VITALS: BP 143/101; PULSE 119; RESP 18; TEMP 36.7; O2SAT 100
--- NOTE | 2024-12-23 18:54 | PC.NURSE ---
Pt was called to talk to and refused to come inside.
--- NOTE | 2024-12-23 19:33 | PC.NURSE ---
Pt agreed to come back to room to be evaluated by provider. Pt was then seen walking outside. checked for Pt in the lobby and outside and he was not found.
--- NOTE | 2024-12-23 20:20 | PC.NURSE ---
STAFF CALLED PATIENT, NO ANSWER RECIEVED.
[2024-12-23 21:01] VITALS: BP 152/103; PULSE 73; RESP 20; TEMP 36.9; O2SAT 98
== END 2024-12-23 20:20 | disposition left against medical advice (07) ==
PROVIDERS: Emergency Provider Emergency Medicine; PCP Family Medicine
DX: Z53.21 Procedure and treatment not carried out due to patient leaving prior to being seen by health care provider (principal)
CPT/HCPCS: 93005; 99283

== ENCOUNTER 2024-12-23 20:27 | Emergency (ER) | payer MEDICAID, SELFPAY ==
[2024-12-23 20:28] VITALS: PULSE 89; RESP 18; O2SAT 97; BMI 21.1
[2024-12-23 21:04] VITALS: BP 152/103; PULSE 73; RESP 16; TEMP 36.9; O2SAT 98
--- NOTE | 2024-12-23 23:43 | PC.NURSE ---
Pt keeps leaving room and will not wait for provider to see him. This is the Pts 3rd time being brought back to an exam room and leaving because he does not want to wait.
--- NOTE | 2024-12-23 23:50 | PC.NURSE ---
PATIENT WAS MOVED TO [facility] ROOM FOR PROVIDER TO SEE HIM, PATIENT KEEPS WALKING OUT OF E ROOM AND RETURNING TO [facility]. PATIENT ASKING FOR ANTIBIOTICS AND STAFF EXPLAINED TO PATIENT THAT PROVIDER HAS TO SEE PATIENT FIRST. EXPLAINED TO PATIENT THAT PROVIDER WILL SEE PATIENT IN ROOM AND HE HAS TO WAIT FOR PROVIDER.
[2024-12-24 00:15] VITALS: BP 156/103; PULSE 95; RESP 16; TEMP 36.5; O2SAT 100
[2024-12-24] MEDS: ACETAMINOPHEN 325 MG TABLET PO (02:04)
--- NOTE | 2024-12-24 04:19 | PD.EDANX ---
ED Anxiety RME/HPI General Chief Complaint: General Adult/Misc Complain Stated Complaint: HIGH BLOOD PRESSURE Time Seen by Provider: 12/23/24 22:53 Arrival date/time: 12/23/24 20:27 39M with history of psych/drug use presents to ED with elevated BP and anxiety. Patient wants some meds and blood work. Patient was here 2 days ago with normal cardiac work-up. Limitations: no limitations Related Data Previous Rx's ?Medication ?Instructions ?Recorded cetirizine 5 mg-pseudoephedrine ER 1 tab PO BID PRN sinus symptoms 08/30/21 120 mg tablet,extended #14 tabs release,12hr (Zyrtec-D) diphenhydramine HCl 25 mg capsule 25 mg PO Q8H PRN allergic symptoms 09/23/22 (Benadryl) #30 caps ibuprofen 600 mg tablet 600 mg PO QID PRN pain #20 tabs 09/23/22 ciprofloxacin HCl 500 mg tablet 500 mg PO BID #14 tabs 11/29/22 (Cipro) dicyclomine 20 mg tablet 20 mg PO BID #20 tabs 11/29/22 metronidazole 500 mg tablet 500 mg PO BID #14 tabs 11/29/22 cyclobenzaprine 7.5 mg tablet 7.5 mg PO TID PRN muscle spasm #30 12/03/22 tabs hydrocodone 5 mg-acetaminophen 325 1 tab PO BID PRN pain #14 tabs 01/16/23 mg tablet hydroxyzine HCl 50 mg tablet 50 mg PO Q6H PRN anxiety #20 tabs 01/18/24 amoxicillin 875 mg-potassium 1 tab PO BID #14 tabs 02/07/24 clavulanate 125 mg tablet acetaminophen 325 mg tablet 650 mg (2 x 325 mg) PO TID PRN 02/11/24 pain #30 tabs ibuprofen 600 mg tablet 600 mg PO Q8H PRN pain #30 tabs 02/11/24 ibuprofen 600 mg tablet 600 mg PO Q8H PRN pain #14 tabs 02/15/24 lidocaine 5 % topical patch 2 patch topical QDAY PRN pain #30 02/15/24 (Lidoderm) ea acetaminophen 500 mg tablet 500 mg PO Q6H PRN pain #30 tabs 09/15/24 tizanidine 4 mg tablet 4 mg PO BID PRN muscle spasticity 09/15/24 #20 tabs sumatriptan succinate 25 mg tablet 25 mg PO Q2H PRN migraine headache 10/08/24 (Imitrex) #10 tabs albuterol sulfate 90 mcg/actuation 1 inh inhalation Q4H PRN shortness 11/06/24 aerosol inhaler (Ventolin HFA) of breath or wheezing #8.5 grams hydroxyzine pamoate 25 mg capsule 25 mg PO BID PRN anxiety #10 caps 11/06/24 ibuprofen 800 mg tablet 800 mg PO Q8H PRN pain #20 tabs 12/21/24 ondansetron 4 mg disintegrating 4 mg PO Q8H PRN nausea and 12/21/24 tablet vomiting #20 tabs Allergies Allergy/AdvReac Type Severity Reaction Status Date / Time No Known Allergies Allergy Verified 12/23/24 20:28 Review of Systems Review of Systems Systems Reviewed: All systems reviewed, normal except as documented Constitutional Constitutional: Reports system reviewed and no additional complaints, except as documented, Denies fever(s) and Denies headache(s) ENT Ears, Nose, Mouth, and Throat: Denies disequilibrium and Denies headache(s) Cardiovascular Cardiovascular: Reports system reviewed and no additional complaints, except as documented, Denies chest pain and Denies dyspnea Respiratory Respiratory: Reports system reviewed and no additional complaints, except as documented, Denies cough and Denies dyspnea Gastrointestinal Gastrointestinal: Reports system reviewed and no additional complaints, except as documented, Denies abdominal pain, Denies nausea and Denies vomiting Neurologic Neurologic: Reports system reviewed and no additional complaints, except as documented, Denies confusion, Denies disequilibrium and Denies headache(s) Psychiatric Psychiatric: Reports as per HPI, Reports anxiety and Denies confusion Past Medical History Past Medical History NEUROLOGIC: Negative Neurological Disorders or Seizures CARDIAC: Negative Cardiac Disorders or Congestive Heart Failure RESPIRATORY: Negative Chronic Obstructive Pulmonary Disease (COPD) or Asthma GASTROINTESTINAL: Negative Gastrointestinal Disorders GENITOURINARY: Negative Genitourinary Disorders or Renal Disease MUSCULOSKELETAL: Negative Musculoskeletal Disorders ENDOCRINE: Negative Endocrine Disorders, Diabetes Mellitus Type 1 or Diabetes Mellitus Type 2 HEMATOLOGIC: Negative Blood Disorders or Sickle Cell Disease OTHER HISTORY: Positive Chicken Pox; Negative Hospitalization, Blood Transfusions, Blood Transfusion Reaction, Anesthesia Reactions or Cancer Social History SMOKING STATUS: Current some day smoker SUBSTANCE USE: does not use and methamphetamine ED Exam General Limitations: Present no limitations General appearance: Present alert, in no apparent distress and anxious Head Head exam: Present atraumatic Eye Eye exam: Present normal appearance, PERRL and EOMI ENT ENT exam: Present normal exam, normal oropharynx and mucous membranes moist Neck Neck exam: Present normal inspection, full ROM and trachea midline Chest Chest inspection: Present normal inspection and symmetric chest wall rise Respiratory Respiratory exam: Present normal lung sounds bilaterally Cardiovascular Cardiovascular exam: Present regular rate, normal rhythm and normal heart sounds Abdominal Exam Abdominal exam: Present soft and normal bowel sounds Extremities Exam Extremities exam: Present normal inspection and full ROM Back Exam Back exam: Present normal inspection and full ROM Neurological Exam Neurological exam: Present alert, oriented X3 and CN II-XII intact Psychiatric Psychiatric exam: Present normal affect and normal mood Skin Skin exam: Present warm, dry, intact and normal color Course Quality Measures none Orders Category Date Time Status Acetaminophen Tab [Tylenol Tab] Med 12/24/24 01:19 Discontinued 325 mg PO X1 ONE Vital Signs Vital signs: Vital Signs Temperature 98.5 F 12/23/24 21:04 Pulse Rate 73 12/23/24 21:04 Respiratory Rate 16 12/23/24 21:04 Blood Pressure 152/103 H 12/23/24 21:04 Pulse Oximetry (%) 98 12/23/24 21:04 Oxygen Delivery Method Room Air 12/23/24 21:04 Anxiety MDM Narrative MDM Narrative: 39M with history of psych/drug use presents to ED with elevated BP and anxiety. Patient wants some meds and blood work. Patient was here 2 days ago with normal cardiac work-up. Physical exam reveals normal WOB. Speech normal. Gait normal. Patient is afebrile, alert, but anxious. EKG is sinus tach of 122. Patient eloped. Patient data External records reviewed:: [facility] previous records Clinical information provided by:: patient Social determinants that could affect healthcare access:: substance use Patient has the following chronic illnesses:: psych/drug How is presenting disease/condition affected by chronic disease/condition?: caused by Evaluation data The following diagnostics were reviewed and interpreted by me:: EKG tracing(s) Lab and/or radiology exams considered but not ordered:: ordered Interpretation Summary: above Medications / Prescriptions Medications or Prescriptions considered but not ordered:: ordered Medication administrations:: Medication Administration History Discontinued Medications Acetaminophen (Acetaminophen 325 Mg Tablet) 325 mg PO X1 ONE Stop: 12/24/24 01:20 Last Admin: 12/24/24 02:04 Dose: 325 mg Documented By: EE Consultations Consultation(s) initiated? (list below): No Diagnosis Differential diagnosis anxiety: hyperventilation, panic disorder and acute anxiety Most likely diagnosis given after review of the tests above:: anxiety Admission Indicated Admission indicated?: not indicated Admission Request Was there a request for admission?: No Disposition Plan Disposition Plan: other (specify) (eloped) Discharge Plan Plan Patient Disposition: Elopement Prescriptions/Referrals Prescriptions/Med Rec: No Action cetirizine-pseudoephedrine [Zyrtec-D] 5-120 mg tablet extended release 12 hr 1 tab PO BID PRN (Reason: sinus symptoms) Qty: 14 0RF diphenhydramine HCl [Benadryl] 25 mg capsule 25 mg PO Q8H PRN (Reason: allergic symptoms) Qty: 30 0RF ibuprofen 600 mg tablet 600 mg PO QID PRN (Reason: pain) Qty: 20 0RF ciprofloxacin HCl [Cipro] 500 mg tablet 500 mg PO BID Qty: 14 0RF metronidazole 500 mg tablet 500 mg PO BID Qty: 14 0RF dicyclomine 20 mg tablet 20 mg PO BID Qty: 20 0RF hydroxyzine HCl 50 mg tablet 50 mg PO Q6H PRN (Reason: anxiety) Qty: 20 0RF amoxicillin-pot clavulanate 875-125 mg tablet 1 tab PO BID Qty: 14 0RF ibuprofen 600 mg tablet 600 mg PO Q8H PRN (Reason: pain) Qty: 30 0RF acetaminophen 325 mg tablet 650 mg PO TID PRN (Reason: pain) Qty: 30 0RF lidocaine [Lidoderm] 5 % adhesive patch,medicated 2 patch topical QDAY PRN (Reason: pain) Qty: 30 0RF Rx Instructions: leave on most painful area for up to 12 hrs ibuprofen 600 mg tablet 600 mg PO Q8H PRN (Reason: pain) Qty: 14 0RF tizanidine 4 mg tablet 4 mg PO BID PRN (Reason: muscle spasticity) Qty: 20 0RF acetaminophen 500 mg tablet 500 mg PO Q6H PRN (Reason: pain) Qty: 30 0RF hydroxyzine pamoate 25 mg capsule 25 mg PO BID PRN (Reason: anxiety) Qty: 10 0RF albuterol sulfate [Ventolin HFA] 90 mcg/actuation HFA aerosol inhaler 1 inh inhalation Q4H PRN (Reason: shortness of breath or wheezing) Qty: 8.5 0RF cyclobenzaprine 7.5 mg tablet 7.5 mg PO TID PRN (Reason: muscle spasm) Qty: 30 0RF hydrocodone-acetaminophen 5-325 mg tablet 1 tab PO BID MDD 10 PRN (Reason: pain) Qty: 14 0RF sumatriptan succinate [Imitrex] 25 mg tablet 25 mg PO Q2H PRN (Reason: migraine headache) Qty: 10 0RF Rx Instructions: do not exceed 8 doses per 24 hrs ondansetron 4 mg tablet,disintegrating 4 mg PO Q8H PRN (Reason: nausea and vomiting) Qty: 20 0RF ibuprofen 800 mg tablet 800 mg PO Q8H PRN (Reason: pain) Qty: 20 0RF Referrals: No Primary/Family,Physician [Primary Care Provider] - In 1 week Problem List Clinical Impression: Anxiety Patient/Caregiver Discharge Instructions Print Language: Croatian 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 Lara
== END 2024-12-24 03:11 | disposition left against medical advice (07) ==
PROVIDERS: Emergency Provider Emergency Medicine
DX: F41.9 Anxiety disorder, unspecified (principal); R03.0 Elevated blood-pressure reading, without diagnosis of hypertension; R00.0 Tachycardia, unspecified; F17.210 Nicotine dependence, cigarettes, uncomplicated; Z53.29 Procedure and treatment not carried out because of patient's decision for other reasons
CPT/HCPCS: 99282; A9270

== ENCOUNTER 2024-12-25 12:48 | Emergency (ER) | payer MEDICAID, SELFPAY ==
--- NOTE | 2024-12-25 12:53 | EDNOTE_ITS ---
ED Headache RME/HPI General Chief Complaint: Headache Stated Complaint: headache x 5 days Time Seen by Provider: 12/25/24 12:51 Source: patient Arrival date/time: 12/25/24 12:48 Mode of arrival: ambulatory Limitations: no limitations RME / HPI RME / HPI Narrative: 39 year old male with a history of anxiety and polysubtance abuse. He is here with an ongoing headache. No falls or injury. No vision changes, stiff neck, or fevers. No nausea or vomiting. He states he was seen at a hospital in [place], [place] yesterday for this and was given docusate sodium and an antibiotic for this. He verbalized frustration about getting rides to get from place to place and being able to see his children at school.He has had 2 head CTs this month that were unremarkable. Related Data Previous Rx's ?Medication ?Instructions ?Recorded cetirizine 5 mg-pseudoephedrine ER 1 tab PO BID PRN si nus symptoms 08/30/21 120 mg tablet,extended #14 tabs release,12hr (Zyrtec-D) diphenhydramine HCl 25 mg capsule 25 mg PO Q8H PRN all ergic symptoms 09/23/22 (Benadryl) #30 caps ibuprofen 600 mg tablet 600 mg PO QID PRN pain #20 t abs 09/23/22 ciprofloxacin HCl 500 mg tablet 500 mg PO BID #14 tabs 11/29/22 (Cipro) dicyclomine 20 mg tablet 20 mg PO BID #20 tabs metronidazole 500 mg tablet 500 mg PO BID #14 tabs cyclobenzaprine 7.5 mg tablet 7.5 mg PO TID PRN muscle spasm #30 12/03/22 tabs hydrocodone 5 mg-acetaminophen 325 1 tab PO BID PRN pa in #14 tabs 01/16/23 mg tablet hydroxyzine HCl 50 mg tablet 50 mg PO Q6H PRN anxiety #20 tabs 01/18/24 amoxicillin 875 mg-potassium 1 tab PO BID #14 tabs 09/25 clavulanate 125 mg tablet acetaminophen 325 mg tablet 650 mg (2 x 325 mg) PO TID PRN 02/11/24 pain #30 tabs ibuprofen 600 mg tablet 600 mg PO Q8H PRN pain #30 t abs 02/11/24 ibuprofen 600 mg tablet 600 mg PO Q8H PRN pain #14 t abs 02/15/24 lidocaine 5 % topical patch 2 patch topical QDAY PRN p ain #30 02/15/24 (Lidoderm) ea acetaminophen 500 mg tablet 500 mg PO Q6H PRN pain #30 tabs 09/15/24 tizanidine 4 mg tablet 4 mg PO BID PRN muscle spast icity 09/15/24 #20 tabs sumatriptan succinate 25 mg tablet 25 mg PO Q2H PRN mi graine headache 10/08/24 (Imitrex) #10 tabs albuterol sulfate 90 mcg/actuation 1 inh inhalation Q4 H PRN shortness 11/06/24 aerosol inhaler (Ventolin HFA) of breath or wheezing # 8.5 grams hydroxyzine pamoate 25 mg capsule 25 mg PO BID PRN anx iety #10 caps 11/06/24 ibuprofen 800 mg tablet 800 mg PO Q8H PRN pain #20 t abs 12/21/24 ondansetron 4 mg disintegrating 4 mg PO Q8H PRN nausea and 12/21/24 tablet vomiting #20 tabs Allergies Allergy/AdvReac Type Severity Reaction Status Date / Time No Known Allergies Allergy Verified 12/25/24 12:49 Review of Systems Review of Systems Systems Reviewed: All systems reviewed, normal except as documented ED Exam General Limitations: Present no limitations General appearance: Present alert and anxious Head Head exam: Present atraumatic Eye Eye exam: Present normal appearance, PERRL and EOMI ENT ENT exam: Present normal exam, normal oropharynx and mucous membranes moist Neck Neck exam: Present normal inspection, full ROM and trachea midline Chest Chest inspection: Present normal inspection and symmetric chest wall rise Respiratory Respiratory exam: Present normal lung sounds bilaterally Cardiovascular Cardiovascular exam: Present regular rate, normal rhythm and normal heart sounds Abdominal Exam Abdominal exam: Present soft and normal bowel sounds Extremities Exam Extremities exam: Present normal inspection and full ROM Back Exam Back exam: Present normal inspection and full ROM Neurological Exam Neurological exam: Present alert and oriented X3 Psychiatric Psychiatric exam: Present depressed and anxious Skin Skin exam: Present warm, dry, intact and normal color Course Quality Measures none Orders Category Date Time Status Acetaminophen Tab [Tylenol ES Tab] Med 12/25/24 12:52 Discontinued 1,000 mg PO X1 ONE Vital Signs Vital signs: Vital Signs Temperature 98.2 F 12/25/24 13:14 Pulse Rate 93 12/25/24 13:14 Respiratory Rate 18 12/25/24 13:14 Blood Pressure 156/98 H 12/25/24 13:14 Pulse Oximetry (%) 99 12/25/24 13:14 Oxygen Delivery Method Room Air 12/25/24 13:14 Headache Patient data External records reviewed:: [facility] previous records Clinical information provided by:: patient Social determinants that could affect healthcare access:: substance use Patient has the following chronic illnesses:: anxiety, substance abuse How is presenting disease/condition affected by chronic disease/condition?: exacerbated by Evaluation data The following diagnostics were reviewed and interpreted by me:: other (specify) (n/a) Lab and/or radiology exams considered but not ordered:: n/a Interpretation Summary: n/a Medications / Prescriptions Medications or Prescriptions considered but not ordered:: n/a Medication administrations:: Medication Administration History Discontinued Medications Acetaminophen (Acetaminophen 500 Mg Tablet) 1,000 mg PO X1 ONE Stop: 12/25/24 12:53 Last Admin: 12/25/24 14:11 Dose: 1,000 mg Documented By: JAQUI see above Consultations Consultation(s) initiated? (list below): No Diagnosis Differential diagnosis headache: headache and sinusitis Most likely diagnosis given after review of the tests above:: acute headache Admission Indicated Admission indicated?: not indicated Admission Request Was there a request for admission?: No Disposition Plan Disposition Plan: other (specify) (patient eloped ) Discharge Plan Plan Patient Disposition: Elopement Patient condition on transfer: Stable Prescriptions/Referrals Prescriptions/Med Rec: No Action cetirizine-pseudoephedrine [Zyrtec-D] 5-120 mg tablet extended release 12 hr 1 tab PO BID PRN (Reason: sinus symptoms) Qty: 14 0RF diphenhydramine HCl [Benadryl] 25 mg capsule 25 mg PO Q8H PRN (Reason: allergic symptoms) Qty: 30 0RF ibuprofen 600 mg tablet 600 mg PO QID PRN (Reason: pain) Qty: 20 0RF ciprofloxacin HCl [Cipro] 500 mg tablet 500 mg PO BID Qty: 14 0RF metronidazole 500 mg tablet 500 mg PO BID Qty: 14 0RF dicyclomine 20 mg tablet 20 mg PO BID Qty: 20 0RF hydroxyzine HCl 50 mg tablet 50 mg PO Q6H PRN (Reason: anxiety) Qty: 20 0RF amoxicillin-pot clavulanate 875-125 mg tablet 1 tab PO BID Qty: 14 0RF ibuprofen 600 mg tablet 600 mg PO Q8H PRN (Reason: pain) Qty: 30 0RF acetaminophen 325 mg tablet 650 mg PO TID PRN (Reason: pain) Qty: 30 0RF lidocaine [Lidoderm] 5 % adhesive patch,medicated 2 patch topical QDAY PRN (Reason: pain) Qty: 30 0RF Rx Instructions: leave on most painful area for up to 12 hrs ibuprofen 600 mg tablet 600 mg PO Q8H PRN (Reason: pain) Qty: 14 0RF tizanidine 4 mg tablet 4 mg PO BID PRN (Reason: muscle spasticity) Qty: 20 0RF acetaminophen 500 mg tablet 500 mg PO Q6H PRN (Reason: pain) Qty: 30 0RF hydroxyzine pamoate 25 mg capsule 25 mg PO BID PRN (Reason: anxiety) Qty: 10 0RF albuterol sulfate [Ventolin HFA] 90 mcg/actuation HFA aerosol inhaler 1 inh inhalation Q4H PRN (Reason: shortness of breath or wheezing) Qty: 8.5 0RF cyclobenzaprine 7.5 mg tablet 7.5 mg PO TID PRN (Reason: muscle spasm) Qty: 30 0RF hydrocodone-acetaminophen 5-325 mg tablet 1 tab PO BID MDD 10 PRN (Reason: pain) Qty: 14 0RF sumatriptan succinate [Imitrex] 25 mg tablet 25 mg PO Q2H PRN (Reason: migraine headache) Qty: 10 0RF Rx Instructions: do not exceed 8 doses per 24 hrs ondansetron 4 mg tablet,disintegrating 4 mg PO Q8H PRN (Reason: nausea and vomiting) Qty: 20 0RF ibuprofen 800 mg tablet 800 mg PO Q8H PRN (Reason: pain) Qty: 20 0RF Referrals: No Primary/Family,Physician [Primary Care Provider] - In 1 week Problem List Clinical Impression: Headache Patient/Caregiver Discharge Instructions Print Language: Azeri
[2024-12-25 13:14] VITALS: BP 156/98; PULSE 93; RESP 18; TEMP 36.8; O2SAT 99; BMI 22.4
[2024-12-25] MEDS: ACETAMINOPHEN 500 MG TABLET 1000 MG PO (14:11)
--- NOTE | 2024-12-25 16:46 | PC.NURSE ---
CALLED PATIENT IN THE LOBBY AND OUTSIDE, NO ANSWER RECEIVED.
--- NOTE | 2024-12-25 17:35 | PC.NURSE ---
CALLED PATIENT IN THE LOBBY AND OUTSIDE, NO ANSWER RECIEVED.
--- NOTE | 2024-12-25 17:41 | PC.NURSE ---
CALLED PATIENT IN THE LOBBY AND OUTSIDE, NO ANSWER RECEIVED.
== END 2024-12-25 18:08 | disposition left against medical advice (07) ==
LOC: SERX 13:35
PROVIDERS: Emergency Provider Emergency Medicine
DX: R51.9 Headache, unspecified (principal); Z53.29 Procedure and treatment not carried out because of patient's decision for other reasons
CPT/HCPCS: 99282; A9270

== ENCOUNTER 2024-12-26 20:08 | Emergency (ER) | payer MEDICAID, SELFPAY ==
[2024-12-26 20:10] VITALS: BMI 21.1
[2024-12-26 21:22] VITALS: BP 123/83; PULSE 84; RESP 18; TEMP 37.1; O2SAT 99
--- NOTE | 2024-12-26 21:34 | XR_ITS ---
Examination: PA chest single view FINDINGS: Upright PA chest single view Date and time: December 26, 2024, 2202 hours INDICATIONS: Chest pain and difficulty breathing today FINDINGS: Normal heart size. Lungs are clear. The osseous structures are intact IMPRESSION: No active disease
--- NOTE | 2024-12-26 21:35 | PD.EDRME ---
Rapid Medical Screening Exam RME Arrival date/time: 12/26/24 20:08 This is a case of 39-year-old male who have history of polysubstance abuse and anxiety came in in the emergency room due to shortness of breath chest pain headache and throat pain for 2 days worsening of the symptoms this patient decided to sought consult here in the emergency room Chief Complaint: Shortness of Breath/Dyspnea Time Seen by Provider: 12/26/24 21:34 Vital signs: Vital Signs Temperature 98.7 F 12/26/24 21:22 Pulse Rate 84 12/26/24 21:22 Respiratory Rate 18 12/26/24 21:22 Blood Pressure 123/83 12/26/24 21:22 Pulse Oximetry (%) 99 12/26/24 21:22 Oxygen Delivery Method Room Air 12/26/24 21:22
--- NOTE | 2024-12-26 21:48 | PD.EDURI ---
Upper Respiratory Inf. RME/HPI General Chief Complaint: Shortness of Breath/Dyspnea Stated Complaint: FEVER, BONES PAIN, THROAT PAIN, DIFFICULTY BREATHI Time Seen by Provider: 12/26/24 21:34 Arrival date/time: 12/26/24 20:08 Limitations: no limitations RME / HPI RME / HPI Narrative: 12/26/24 20:08 This is a case of 39-year-old male who have history of polysubstance abuse and anxiety came in in the emergency room due to chronic shortness of breath, chest pain, headache, and sore throat. He has multiple visits for similar sympotms. Related Data Previous Rx's ?Medication ?Instructions ?Recorded cetirizine 5 mg-pseudoephedrine ER 1 tab PO BID PRN sinus symptoms 08/30/21 120 mg tablet,extended #14 tabs release,12hr (Zyrtec-D) diphenhydramine HCl 25 mg capsule 25 mg PO Q8H PRN allergic symptoms 09/23/22 (Benadryl) #30 caps ibuprofen 600 mg tablet 600 mg PO QID PRN pain #20 tabs 09/23/22 ciprofloxacin HCl 500 mg tablet 500 mg PO BID #14 tabs 11/29/22 (Cipro) dicyclomine 20 mg tablet 20 mg PO BID #20 tabs 11/29/22 metronidazole 500 mg tablet 500 mg PO BID #14 tabs 11/29/22 cyclobenzaprine 7.5 mg tablet 7.5 mg PO TID PRN muscle spasm #30 12/03/22 tabs hydrocodone 5 mg-acetaminophen 325 1 tab PO BID PRN pain #14 tabs 01/16/23 mg tablet hydroxyzine HCl 50 mg tablet 50 mg PO Q6H PRN anxiety #20 tabs 01/18/24 amoxicillin 875 mg-potassium 1 tab PO BID #14 tabs 02/07/24 clavulanate 125 mg tablet acetaminophen 325 mg tablet 650 mg (2 x 325 mg) PO TID PRN 02/11/24 pain #30 tabs ibuprofen 600 mg tablet 600 mg PO Q8H PRN pain #30 tabs 02/11/24 ibuprofen 600 mg tablet 600 mg PO Q8H PRN pain #14 tabs 02/15/24 lidocaine 5 % topical patch 2 patch topical QDAY PRN pain #30 02/15/24 (Lidoderm) ea acetaminophen 500 mg tablet 500 mg PO Q6H PRN pain #30 tabs 09/15/24 tizanidine 4 mg tablet 4 mg PO BID PRN muscle spasticity 09/15/24 #20 tabs sumatriptan succinate 25 mg tablet 25 mg PO Q2H PRN migraine headache 10/08/24 (Imitrex) #10 tabs albuterol sulfate 90 mcg/actuation 1 inh inhalation Q4H PRN shortness 11/06/24 aerosol inhaler (Ventolin HFA) of breath or wheezing #8.5 grams hydroxyzine pamoate 25 mg capsule 25 mg PO BID PRN anxiety #10 caps 11/06/24 ibuprofen 800 mg tablet 800 mg PO Q8H PRN pain #20 tabs 12/21/24 ondansetron 4 mg disintegrating 4 mg PO Q8H PRN nausea and 12/21/24 tablet vomiting #20 tabs Allergies Allergy/AdvReac Type Severity Reaction Status Date / Time No Known Allergies Allergy Verified 12/26/24 20:10 Review of Systems Review of Systems Systems Reviewed: All systems reviewed, normal except as documented ED Exam General Limitations: Present no limitations General appearance: Present alert and in no apparent distress Head Head exam: Present atraumatic Eye Eye exam: Present normal appearance, PERRL and EOMI ENT ENT exam: Present normal exam, normal oropharynx and mucous membranes moist Neck Neck exam: Present normal inspection and full ROM Chest Chest inspection: Present normal inspection and symmetric chest wall rise Respiratory Respiratory exam: Present normal lung sounds bilaterally Cardiovascular Cardiovascular exam: Present regular rate, normal rhythm and normal heart sounds Abdominal Exam Abdominal exam: Present soft and normal bowel sounds Extremities Exam Extremities exam: Present normal inspection and full ROM Back Exam Back exam: Present normal inspection and full ROM Neurological Exam Neurological exam: Present alert and oriented X3 Psychiatric Psychiatric exam: Present anxious Skin Skin exam: Present warm, dry, intact and normal color Course Quality Measures none Orders Category Date Time Status Bedside COVID-19 Antigen Test NOW Care 12/26/24 21:34 Active Bedside Influenza A&B Antigen Test NOW Care 12/26/24 21:34 Completed EKG (ED ONLY) *Do not use* NOW Care 12/26/24 21:34 Completed EKG (ED Only) Stat Exams 12/26/24 21:34 Ordered XR chest 1V portable Stat Exams 12/26/24 21:34 Completed BNP [B-Type Natriuretic Peptide] Stat Lab 12/26/24 21:39 Completed D-Dimer Stat Lab 12/26/24 21:39 Completed Drug Screen,Urine Stat Lab 12/26/24 22:10 Completed Strep A Rapid Stat Lab 12/26/24 22:10 Completed Troponin I Stat Lab 12/26/24 21:39 Completed Urinalysis Stat Lab 12/26/24 22:10 Completed Pantoprazole [Protonix] Med 12/26/24 21:40 Discontinued 20 mg PO X1 ONE mg Hyd/Al Hyd/Maribell Susp [Maalox Susp] Med 12/26/24 21:40 Discontinued 30 ml PO X1 ONE Vital Signs Vital signs: Vital Signs Temperature 98.7 F 12/26/24 21:22 Pulse Rate 84 12/26/24 21:22 Respiratory Rate 18 12/26/24 21:22 Blood Pressure 123/83 12/26/24 21:22 Pulse Oximetry (%) 99 12/26/24 21:22 Oxygen Delivery Method Room Air 12/26/24 21:22 Upper Respiratory Infection MDM Narrative MDM Narrative:: 12/26/24 20:08 This is a case of 39-year-old male who have history of polysubstance abuse and anxiety came in in the emergency room due to chronic shortness of breath, chest pain, headache, and sore throat. He has multiple visits for similar sympotms. . Patient data External records reviewed:: [facility] previous records Clinical information provided by:: patient Social determinants that could affect healthcare access:: substance use Patient has the following chronic illnesses:: Anxiety, methamphetamine abuse How is presenting disease/condition affected by chronic disease/condition?: exacerbated by Evaluation data The following diagnostics were reviewed and interpreted by me:: EKG tracing(s) (Normal sinus rhythm at [address] changes.) Lab and/or radiology exams considered but not ordered:: n/a Interpretation Summary: Workup was unremarkable exception of positive drug screen which reveals methamphetamine Medications / Prescriptions Medications or Prescriptions considered but not ordered:: n/a Medication administrations:: Medication Administration History Discontinued Medications Al Hydrox/Mg Hydrox/Simethicone (Mg Hyd/Al Hyd/Maribell (Maalox Reg) Susp 30 Ml Udc) 30 ml PO X1 ONE Stop: 12/26/24 21:41 Last Admin: 12/26/24 21:57 Dose: 30 ml Documented By: BETTY Pantoprazole Sodium (Pantoprazole 20 Mg Tablet) 20 mg PO X1 ONE Stop: 12/26/24 21:41 Last Admin: 12/26/24 21:58 Dose: 20 mg Documented By: BETTY see above Consultations Consultation(s) initiated? (list below): No Diagnosis Upper Respiratory Differential Diagnosis: viral infection, bronchitis and pharyngitis Most likely diagnosis given after review of the tests above:: Anxiety, methamphetamine and Admission Indicated Admission indicated?: not indicated Admission Request Was there a request for admission?: No Disposition Plan Disposition Plan: Discharge Discharge Attestation Discharge Attestation: The patient and all family members were given an opportunity to ask questions and understood the discharge instructions. Discharge instructions specifically effects, indications for sooner follow up or return to the emergency department, and the expected course of current diagnosis. Patient condition: Stable Discharge Plan Plan Patient Disposition: HOME (Self Care) Patient condition on transfer: Stable Prescriptions/Referrals Prescriptions/Med Rec: No Action cetirizine-pseudoephedrine [Zyrtec-D] 5-120 mg tablet extended release 12 hr 1 tab PO BID PRN (Reason: sinus symptoms) Qty: 14 0RF diphenhydramine HCl [Benadryl] 25 mg capsule 25 mg PO Q8H PRN (Reason: allergic symptoms) Qty: 30 0RF ibuprofen 600 mg tablet 600 mg PO QID PRN (Reason: pain) Qty: 20 0RF ciprofloxacin HCl [Cipro] 500 mg tablet 500 mg PO BID Qty: 14 0RF metronidazole 500 mg tablet 500 mg PO BID Qty: 14 0RF dicyclomine 20 mg tablet 20 mg PO BID Qty: 20 0RF hydroxyzine HCl 50 mg tablet 50 mg PO Q6H PRN (Reason: anxiety) Qty: 20 0RF amoxicillin-pot clavulanate 875-125 mg tablet 1 tab PO BID Qty: 14 0RF ibuprofen 600 mg tablet 600 mg PO Q8H PRN (Reason: pain) Qty: 30 0RF acetaminophen 325 mg tablet 650 mg PO TID PRN (Reason: pain) Qty: 30 0RF lidocaine [Lidoderm] 5 % adhesive patch,medicated 2 patch topical QDAY PRN (Reason: pain) Qty: 30 0RF Rx Instructions: leave on most painful area for up to 12 hrs ibuprofen 600 mg tablet 600 mg PO Q8H PRN (Reason: pain) Qty: 14 0RF tizanidine 4 mg tablet 4 mg PO BID PRN (Reason: muscle spasticity) Qty: 20 0RF acetaminophen 500 mg tablet 500 mg PO Q6H PRN (Reason: pain) Qty: 30 0RF hydroxyzine pamoate 25 mg capsule 25 mg PO BID PRN (Reason: anxiety) Qty: 10 0RF albuterol sulfate [Ventolin HFA] 90 mcg/actuation HFA aerosol inhaler 1 inh inhalation Q4H PRN (Reason: shortness of breath or wheezing) Qty: 8.5 0RF cyclobenzaprine 7.5 mg tablet 7.5 mg PO TID PRN (Reason: muscle spasm) Qty: 30 0RF hydrocodone-acetaminophen 5-325 mg tablet 1 tab PO BID MDD 10 PRN (Reason: pain) Qty: 14 0RF sumatriptan succinate [Imitrex] 25 mg tablet 25 mg PO Q2H PRN (Reason: migraine headache) Qty: 10 0RF Rx Instructions: do not exceed 8 doses per 24 hrs ondansetron 4 mg tablet,disintegrating 4 mg PO Q8H PRN (Reason: nausea and vomiting) Qty: 20 0RF ibuprofen 800 mg tablet 800 mg PO Q8H PRN (Reason: pain) Qty: 20 0RF Referrals: No Primary/Family,Physician [Primary Care Provider] - In 1 week Problem List Clinical Impression: Methamphetamine abuse, Anxiety Patient/Caregiver Discharge Instructions Education Materials: ED Anxiety Reaction, ED Drug Abuse Additional Instructions: - Your workup today was unremarkable for any acute emergent process. - Your urine drug screen test were again positive for methamphetamines. It is important that you discontinue abusing drugs. This will add to your anxiety. - Please follow-up with your primary doctor for further care. - You may return here for any emergent changes as needed. Print Language: Yakut Stand Alone Forms: [employer] Award Info., Patient Portal Info Letter
[2024-12-26] MEDS: MG HYD/AL HYD/SIME (Maalox Reg) SUSP 30 ML UDC PO (21:57)
[2024-12-26] MEDS: PANTOPRAZOLE 20 MG TABLET PO (21:58)
[2024-12-26 22:07] LABS: B-Type Natriuretic Peptide < 20 pg/mL (0-100)
[2024-12-26 22:08] LABS: Troponin I < 0.002 ng/mL (0.0-0.045)
[2024-12-26 22:09] LABS: D-Dimer < 250 ng/mL (<600)
[2024-12-26 22:25] LABS: Collection Type, Urine Voided; Squamous Epithelial Cell,Urine 0 /hpf (0-5); WBC,Urine 0 /hpf (0-5)
[2024-12-26 22:35] LABS: Bilirubin,Urine Negative (Negative); Blood,Urine Negative (Negative); Clarity,Urine Clear (Clear/Hazy); Color,Urine Lt-Yellow (Lt Yel-Yel); Glucose, Urine Negative (Negative); Ketones,Urine Negative (Negative); Leukocyte Esterase,Urine Negative (Negative); Nitrite,Urine Negative (Negative); PH,Urine 5.5 (5.0-7.0); Protein,Urine Negative (Neg - Trace); RBC,Urine 1 /hpf (0-3); Specific Gravity,Urine 1.010 (1.001-1.035); Urobilinogen,Urine Negative mg/dL (0.0-1.0)
[2024-12-26 22:41] LABS: Amphetamine/Methamp Scrn,U Positive (Negative); Barbiturate Screen,Urine Negative (Negative); Benzodiazepines Screen,Urine Negative (Negative); Benzoylecgonine Screen, Ur Negative (Negative); Fentanyl Screen,Urine Negative (Negative); Opiate Screen,Urine Negative (Negative); THC Screen,Urine Negative (Negative)
[2024-12-26 22:45] LABS: Strep A Rapid Negative (Negative)
== END 2024-12-26 23:10 | disposition home or self-care (01) ==
PROVIDERS: Nurse Practitioner Family; Emergency Provider Emergency Medicine
DX: F15.10 Other stimulant abuse, uncomplicated (principal); F41.9 Anxiety disorder, unspecified
CPT/HCPCS: 36415; 71045; 80307; 81001; 83880; 84484; 85379; 87400; 87651; 87811; 93005; 99283; A9270

== ENCOUNTER 2024-12-27 00:58 | Emergency (ER) | payer MEDICAID, SELFPAY ==
[2024-12-27 01:13] VITALS: PULSE 91; RESP 18; O2SAT 98; BMI 21.1
[2024-12-27 01:31] VITALS: BP 125/82; PULSE 62; RESP 16; TEMP 36.6; O2SAT 99
--- NOTE | 2024-12-27 01:39 | PD.EDRME ---
Rapid Medical Screening Exam E Arrival date/time: 12/27/24 00:58 This is a case of 39-year-old male with history of anxiety and polysubstance abuse came in now with abdominal pain patient was here last night due to chest pain shortness of breath and was discharged with no symptoms now patient was complaining of abdominal pain no nausea no vomiting no constipation no diarrhea no blood in stool Chief Complaint: Abdominal Pain Time Seen by Provider: 12/27/24 01:38 Vital signs: Vital Signs Temperature 97.8 F 12/27/24 01:31 Pulse Rate 62 12/27/24 01:31 Respiratory Rate 16 12/27/24 01:31 Blood Pressure 125/82 12/27/24 01:31 Pulse Oximetry (%) 99 12/27/24 01:31 Oxygen Delivery Method Room Air 12/27/24 01:31
--- NOTE | 2024-12-27 02:02 | PD.EDABDPN ---
ED Abdominal Pain RME/HPI General Chief Complaint: Abdominal Pain Stated complaint: ABDOMINAL PAIN Time seen by provider: 12/27/24 01:38 Arrival date/time: 12/27/24 00:58 RME / HPI RME / HPI narrative: 12/27/24 00:58 This is a case of 39-year-old male with history of anxiety and polysubstance abuse came in now with abdominal pain patient was here last night due to chest pain shortness of breath and was discharged with no symptoms now patient was complaining of abdominal pain no nausea no vomiting no constipation no diarrhea no blood in stool Dr. Watson?s Main ED Evaluation: 39yo male with a history of methamphetamine abuse BIBA from home presents to the ED for a chief complaint of lower abdominal and back pain. Patient denies any N/V/D, fever, chills, bloody/black stools, UTI symptoms, chest pain, shortness of breath or any other associated symptoms. Patient has been evaluated here multiple times in the past for similar complaints. Related Data Previous Rx's ?Medication ?Instructions ?Recorded cetirizine 5 mg-pseudoephedrine ER 1 tab PO BID PRN sinus symptoms 08/30/21 120 mg tablet,extended #14 tabs release,12hr (Zyrtec-D) diphenhydramine HCl 25 mg capsule 25 mg PO Q8H PRN allergic symptoms 09/23/22 (Benadryl) #30 caps ibuprofen 600 mg tablet 600 mg PO QID PRN pain #20 tabs 09/23/22 ciprofloxacin HCl 500 mg tablet 500 mg PO BID #14 tabs 11/29/22 (Cipro) dicyclomine 20 mg tablet 20 mg PO BID #20 tabs 11/29/22 metronidazole 500 mg tablet 500 mg PO BID #14 tabs 11/29/22 cyclobenzaprine 7.5 mg tablet 7.5 mg PO TID PRN muscle spasm #30 12/03/22 tabs hydrocodone 5 mg-acetaminophen 325 1 tab PO BID PRN pain #14 tabs 01/16/23 mg tablet hydroxyzine HCl 50 mg tablet 50 mg PO Q6H PRN anxiety #20 tabs 01/18/24 amoxicillin 875 mg-potassium 1 tab PO BID #14 tabs 02/07/24 clavulanate 125 mg tablet acetaminophen 325 mg tablet 650 mg (2 x 325 mg) PO TID PRN 02/11/24 pain #30 tabs ibuprofen 600 mg tablet 600 mg PO Q8H PRN pain #30 tabs 02/11/24 ibuprofen 600 mg tablet 600 mg PO Q8H PRN pain #14 tabs 02/15/24 lidocaine 5 % topical patch 2 patch topical QDAY PRN pain #30 02/15/24 (Lidoderm) ea acetaminophen 500 mg tablet 500 mg PO Q6H PRN pain #30 tabs 09/15/24 tizanidine 4 mg tablet 4 mg PO BID PRN muscle spasticity 09/15/24 #20 tabs sumatriptan succinate 25 mg tablet 25 mg PO Q2H PRN migraine headache 10/08/24 (Imitrex) #10 tabs albuterol sulfate 90 mcg/actuation 1 inh inhalation Q4H PRN shortness 11/06/24 aerosol inhaler (Ventolin HFA) of breath or wheezing #8.5 grams hydroxyzine pamoate 25 mg capsule 25 mg PO BID PRN anxiety #10 caps 11/06/24 ibuprofen 800 mg tablet 800 mg PO Q8H PRN pain #20 tabs 12/21/24 ondansetron 4 mg disintegrating 4 mg PO Q8H PRN nausea and 12/21/24 tablet vomiting #20 tabs dicyclomine 20 mg tablet 20 mg PO QID PRN abdominal pain 12/27/24 #30 tabs Allergies Allergy/AdvReac Type Severity Reaction Status Date / Time No Known Allergies Allergy Verified 12/27/24 01:16 Review of Systems Review of Systems Systems Reviewed: All systems reviewed, normal except as documented Past Medical History Past Medical History NEUROLOGIC: Negative Neurological Disorders or Seizures CARDIAC: Negative Cardiac Disorders or Congestive Heart Failure RESPIRATORY: Negative Chronic Obstructive Pulmonary Disease (COPD) or Asthma GASTROINTESTINAL: Negative Gastrointestinal Disorders GENITOURINARY: Negative Genitourinary Disorders or Renal Disease MUSCULOSKELETAL: Negative Musculoskeletal Disorders ENDOCRINE: Negative Endocrine Disorders, Diabetes Mellitus Type 1 or Diabetes Mellitus Type 2 HEMATOLOGIC: Negative Blood Disorders or Sickle Cell Disease OTHER HISTORY: Positive Chicken Pox; Negative Hospitalization, Blood Transfusions, Blood Transfusion Reaction, Anesthesia Reactions or Cancer Social History SMOKING STATUS: Current every day smoker SUBSTANCE USE: does not use and methamphetamine ED Exam Narrative Physical exam: Generally patient is alert and in no obvious distress heart regular rate and rhythm lungs clear to auscultation equal laterally abdomen soft bowel sounds present nondistended very mild mid abdominal tenderness without rebound. This is a rather benign exam. Course Quality Measures none Orders Category Date Time Status Dicyclomine Inj [Bentyl Inj] Med 12/27/24 02:03 Once 20 mg IM X1 ONE Vital Signs Vital signs: Vital Signs Temperature 97.8 F 12/27/24 01:31 Pulse Rate 62 12/27/24 01:31 Respiratory Rate 16 12/27/24 01:31 Blood Pressure 125/82 12/27/24 01:31 Pulse Oximetry (%) 99 12/27/24 01:31 Oxygen Delivery Method Room Air 12/27/24 01:31 Abdominal Pain MDM MDM Narrative MDM Narrative:: Scribe Attestation: 12/27/24 - Tyra Rzea am scribing for and in the presence of Dr. Watson. Patient has frequent visits to the emergency room for multiple complaints including abdominal pain. He has had a CT scan of the chest abdomen pelvis recently in the past which were negative. Recent lab work is unremarkable. Patient has been found to be methamphetamine. I will give the patient Bentyl 20 mg IM. Bentyl as prescribed. Stop the methamphetamine. I do not believe an infectious or surgical intra-abdominal process to be taken place in this patient at this time. Patient data External records reviewed:: [facility] previous records (Per chart review, patient was seen here yesterday for anxiety.) and EMS form Clinical information provided by:: patient Social determinants that could affect healthcare access:: substance use Patient has the following chronic illnesses:: none How is presenting disease/condition affected by chronic disease/condition?: no chronic disease Evaluation data The following diagnostics were reviewed and interpreted by me:: other (specify) (none) Lab and/or radiology exams considered but not ordered:: none Interpretation Summary: none Medications / Prescriptions Medications or Prescriptions considered but not ordered:: none Medication administrations:: Medication Administration History Dicyclomine HCl (Dicyclomine Inj 10 Mg/Ml 2ml Vial) 20 mg IM X1 ONE Stop: 12/27/24 02:04 none Consultations Consultation(s) initiated? (list below): No Diagnosis Differential diagnosis abdominal pain: other (methamphetamine abuse, polysubstance abuse, chronic pain) Most likely diagnosis given after review of the tests above:: see clinical impression below Admission Indicated Admission indicated?: not indicated Admission Request Was there a request for admission?: No Disposition Plan Disposition Plan: Discharge Discharge Attestation Discharge Attestation: The patient and all family members were given an opportunity to ask questions and understood the discharge instructions. Discharge instructions specifically effects, indications for sooner follow up or return to the emergency department, and the expected course of current diagnosis. Patient condition: Stable Discharge Plan Plan Patient Disposition: HOME (Self Care) Prescriptions/Referrals Prescriptions/Med Rec: New dicyclomine 20 mg tablet 20 mg PO QID PRN (Reason: abdominal pain) Qty: 30 0RF No Action cetirizine-pseudoephedrine [Zyrtec-D] 5-120 mg tablet extended release 12 hr 1 tab PO BID PRN (Reason: sinus symptoms) Qty: 14 0RF diphenhydramine HCl [Benadryl] 25 mg capsule 25 mg PO Q8H PRN (Reason: allergic symptoms) Qty: 30 0RF ibuprofen 600 mg tablet 600 mg PO QID PRN (Reason: pain) Qty: 20 0RF ciprofloxacin HCl [Cipro] 500 mg tablet 500 mg PO BID Qty: 14 0RF metronidazole 500 mg tablet 500 mg PO BID Qty: 14 0RF dicyclomine 20 mg tablet 20 mg PO BID Qty: 20 0RF hydroxyzine HCl 50 mg tablet 50 mg PO Q6H PRN (Reason: anxiety) Qty: 20 0RF amoxicillin-pot clavulanate 875-125 mg tablet 1 tab PO BID Qty: 14 0RF ibuprofen 600 mg tablet 600 mg PO Q8H PRN (Reason: pain) Qty: 30 0RF acetaminophen 325 mg tablet 650 mg PO TID PRN (Reason: pain) Qty: 30 0RF lidocaine [Lidoderm] 5 % adhesive patch,medicated 2 patch topical QDAY PRN (Reason: pain) Qty: 30 0RF Rx Instructions: leave on most painful area for up to 12 hrs ibuprofen 600 mg tablet 600 mg PO Q8H PRN (Reason: pain) Qty: 14 0RF tizanidine 4 mg tablet 4 mg PO BID PRN (Reason: muscle spasticity) Qty: 20 0RF acetaminophen 500 mg tablet 500 mg PO Q6H PRN (Reason: pain) Qty: 30 0RF hydroxyzine pamoate 25 mg capsule 25 mg PO BID PRN (Reason: anxiety) Qty: 10 0RF albuterol sulfate [Ventolin HFA] 90 mcg/actuation HFA aerosol inhaler 1 inh inhalation Q4H PRN (Reason: shortness of breath or wheezing) Qty: 8.5 0RF cyclobenzaprine 7.5 mg tablet 7.5 mg PO TID PRN (Reason: muscle spasm) Qty: 30 0RF hydrocodone-acetaminophen 5-325 mg tablet 1 tab PO BID MDD 10 PRN (Reason: pain) Qty: 14 0RF sumatriptan succinate [Imitrex] 25 mg tablet 25 mg PO Q2H PRN (Reason: migraine headache) Qty: 10 0RF Rx Instructions: do not exceed 8 doses per 24 hrs ondansetron 4 mg tablet,disintegrating 4 mg PO Q8H PRN (Reason: nausea and vomiting) Qty: 20 0RF ibuprofen 800 mg tablet 800 mg PO Q8H PRN (Reason: pain) Qty: 20 0RF Referrals: No Primary/Family,Physician [Primary Care Provider] - In 1 week Problem List Clinical Impression: Chronic abdominal pain, Methamphetamine use Patient/Caregiver Discharge Instructions Education Materials: ED Chronic Pain, ED Drug Abuse Additional Instructions: Bentyl as prescribed. Stop using methamphetamine. Print Language: Upper Sorbian Stand Alone Forms: [employer] Award Info., Patient Portal Info Letter
[2024-12-27] MEDS: DICYCLOMINE INJ 10 MG/ML 2ML VIAL 20 MG IM (02:13)
== END 2024-12-27 02:16 | disposition home or self-care (01) ==
PROVIDERS: Emergency Provider Emergency Medicine
DX: G89.29 Other chronic pain (principal); R10.9 Unspecified abdominal pain; F15.90 Other stimulant use, unspecified, uncomplicated
CPT/HCPCS: 96372; 99282; J0500

== ENCOUNTER 2024-12-28 01:05 | Emergency (ER) | payer MEDICAID, SELFPAY ==
[2024-12-28 01:05] VITALS: PULSE 78; RESP 16; O2SAT 99; BMI 22.7
[2024-12-28 01:33] VITALS: BP 129/85; PULSE 72; RESP 17; TEMP 36.8; O2SAT 98
[2024-12-28 03:07] LABS: Collection Type, Urine Voided; Squamous Epithelial Cell,Urine 0 /hpf (0-5)
[2024-12-28 03:11] LABS: Bilirubin,Urine Negative (Negative); Blood,Urine Negative (Negative); Clarity,Urine Clear (Clear/Hazy); Color,Urine Yellow (Lt Yel-Yel); Glucose, Urine Negative (Negative); Ketones,Urine Trace (Negative); Leukocyte Esterase,Urine Negative (Negative); Nitrite,Urine Negative (Negative); PH,Urine 5.5 (5.0-7.0); Protein,Urine Trace (Neg - Trace); RBC,Urine 4 /hpf (0-3); Specific Gravity,Urine 1.030 (1.001-1.035); Urobilinogen,Urine 2.0 mg/dL (0.0-1.0); WBC,Urine 2 /hpf (0-5)
[2024-12-28] MEDS: IBUPROFEN TAB 400 MG TABLET 800 MG PO (03:42)
--- NOTE | 2024-12-28 03:45 | EDNOTE_ITS ---
ED Abdominal Pain RME/HPI General Chief Complaint: Abdominal Pain Stated complaint: ABD PAIN Time seen by provider: 12/28/24 01:57 Arrival date/time: 12/28/24 01:05 This is a case of 39-year-old male with history of anxiety and polysubstance abuse came in in the emergency room due to left lower quadrant abdominal pain for 1 hour with no other symptoms denies any nausea vomiting constipation diarrhea or blood in stool patient also complaining of painful urination but no blood in urine no fever no chills patient have history of multiple visit here in the emergency room and patient was seen yesterday with the same symptoms and discharged with chronic abdominal pain patient have multiple blood test and CT scan of the abdomen pelvis which I reviewed and everything were normal Limitations: no limitations Related Data Previous Rx's ?Medication ?Instructions ?Recorded cetirizine 5 mg-pseudoephedrine ER 1 tab PO BID PRN si nus symptoms 08/30/21 120 mg tablet,extended #14 tabs release,12hr (Zyrtec-D) diphenhydramine HCl 25 mg capsule 25 mg PO Q8H PRN all ergic symptoms 09/23/22 (Benadryl) #30 caps ibuprofen 600 mg tablet 600 mg PO QID PRN pain #20 t abs 09/23/22 ciprofloxacin HCl 500 mg tablet 500 mg PO BID #14 tabs 11/29/22 (Cipro) dicyclomine 20 mg tablet 20 mg PO BID #20 tabs metronidazole 500 mg tablet 500 mg PO BID #14 tabs cyclobenzaprine 7.5 mg tablet 7.5 mg PO TID PRN muscle spasm #30 12/03/22 tabs hydrocodone 5 mg-acetaminophen 325 1 tab PO BID PRN pa in #14 tabs 01/16/23 mg tablet hydroxyzine HCl 50 mg tablet 50 mg PO Q6H PRN anxiety #20 tabs 01/18/24 amoxicillin 875 mg-potassium 1 tab PO BID #14 tabs 09/25 clavulanate 125 mg tablet acetaminophen 325 mg tablet 650 mg (2 x 325 mg) PO TID PRN 02/11/24 pain #30 tabs ibuprofen 600 mg tablet 600 mg PO Q8H PRN pain #30 t abs 02/11/24 ibuprofen 600 mg tablet 600 mg PO Q8H PRN pain #14 t abs 02/15/24 lidocaine 5 % topical patch 2 patch topical QDAY PRN p ain #30 02/15/24 (Lidoderm) ea acetaminophen 500 mg tablet 500 mg PO Q6H PRN pain #30 tabs 09/15/24 tizanidine 4 mg tablet 4 mg PO BID PRN muscle spast icity 09/15/24 #20 tabs sumatriptan succinate 25 mg tablet 25 mg PO Q2H PRN mi graine headache 10/08/24 (Imitrex) #10 tabs albuterol sulfate 90 mcg/actuation 1 inh inhalation Q4 H PRN shortness 11/06/24 aerosol inhaler (Ventolin HFA) of breath or wheezing # 8.5 grams hydroxyzine pamoate 25 mg capsule 25 mg PO BID PRN anx iety #10 caps 11/06/24 ibuprofen 800 mg tablet 800 mg PO Q8H PRN pain #20 t abs 12/21/24 ondansetron 4 mg disintegrating 4 mg PO Q8H PRN nausea and 12/21/24 tablet vomiting #20 tabs dicyclomine 20 mg tablet 20 mg PO QID PRN abdominal p ain 12/27/24 #30 tabs cephalexin 500 mg capsule 500 mg PO QID #40 caps 12/28 phenazopyridine 200 mg tablet 200 mg PO TID 2 days #6 tabs 12/28/24 (Pyridium) Allergies Allergy/AdvReac Type Severity Reaction Status Date / Time No Known Allergies Allergy Verified 12/27/24 01:16 Review of Systems Review of Systems Systems Reviewed: All systems reviewed, normal except as documented Constitutional Constitutional: Reports system reviewed and no additional complaints, except as documented and Reports as per HPI Cardiovascular Cardiovascular: Reports system reviewed and no additional complaints, except as documented and Reports as per HPI Respiratory Respiratory: Reports system reviewed and no additional complaints, except as documented and Reports as per HPI Gastrointestinal Gastrointestinal: Reports system reviewed and no additional complaints, except as documented and Reports as per HPI Genitourinary Genitourinary: Reports system reviewed and no additional complaints, except as documented and Reports as per HPI Musculoskeletal Musculoskeletal: Reports system reviewed and no additional complaints, except as documented and Reports as per HPI Neurologic Neurologic: Reports system reviewed and no additional complaints, except as documented and Reports as per HPI Past Medical History Past Medical History NEUROLOGIC: Negative Neurological Disorders or Seizures CARDIAC: Negative Cardiac Disorders or Congestive Heart Failure RESPIRATORY: Negative Chronic Obstructive Pulmonary Disease (COPD) or Asthma GASTROINTESTINAL: Negative Gastrointestinal Disorders GENITOURINARY: Negative Genitourinary Disorders or Renal Disease MUSCULOSKELETAL: Negative Musculoskeletal Disorders ENDOCRINE: Negative Endocrine Disorders, Diabetes Mellitus Type 1 or Diabetes Mellitus Type 2 HEMATOLOGIC: Negative Blood Disorders or Sickle Cell Disease OTHER HISTORY: Positive Chicken Pox; Negative Hospitalization, Blood Transfusions, Blood Transfusion Reaction, Anesthesia Reactions or Cancer Social History SMOKING STATUS: Current some day smoker SUBSTANCE USE: does not use and methamphetamine ED Exam General Limitations: Present no limitations General appearance: Present alert, in no apparent distress and other (Patient is awake alert oriented not in distress nontoxic looking well-hydrated well- nourished) Head Head exam: Present atraumatic, normocephalic and normal inspection Eye Eye exam: Present normal appearance, PERRL and EOMI ENT ENT exam: Present normal exam, normal oropharynx and mucous membranes moist Neck Neck exam: Present normal inspection, full ROM and trachea midline Chest Chest inspection: Present normal inspection and symmetric chest wall rise; Absent tenderness Respiratory Respiratory exam: Present normal lung sounds bilaterally; Absent respiratory distress, wheezes, stridor, accessory muscle use or prolonged expiratory phase Cardiovascular Cardiovascular exam: Present regular rate, normal rhythm and normal heart sounds; Absent bradycardia, tachycardia, irregular rhythm, systolic murmur or diastolic murmur Abdominal Exam Abdominal exam: Present soft and normal bowel sounds; Absent distention, tenderness, guarding, rebound, rigidity, diminished bowel sounds, hyperactive bowel sounds, hypoactive bowel sounds, organomegaly, psoas sign, obturator sign, tenderness at McBurney's Point or ascites Extremities Exam Extremities exam: Present normal inspection and full ROM Back Exam Back exam: Present normal inspection and full ROM Neurological Exam Neurological exam: Present alert, oriented X3, CN II-XII intact, normal gait and reflexes normal; Absent motor sensory deficit Psychiatric Psychiatric exam: Present normal affect and normal mood Skin Skin exam: Present warm, dry, intact and normal color Course Quality Measures none Orders Category Date Time Status Urinalysis Stat Lab 12/28/24 02:55 Completed Ibuprofen Tab [Motrin Tab] Med 12/28/24 03:34 Discontinued 800 mg PO X1 ONE cephALEXin [Keflex] Med 12/28/24 03:34 Discontinued 500 mg PO X1 ONE Vital Signs Vital signs: Vital Signs Temperature 98.3 F 08/26/25 01:33 Pulse Rate 72 12/28/24 01:33 Respiratory Rate 17 12/28/24 01:33 Blood Pressure 129/85 H 12/28/24 01:33 Pulse Oximetry (%) 98 12/28/24 01:33 Oxygen Delivery Method Room Air 12/28/24 01:33 Oxygen saturation is 98% in room air Abdominal Pain MDM MDM Narrative MDM Narrative:: This is a case of 39-year-old male with history of anxiety and polysubstance abuse came in in the emergency room due to left lower quadrant abdominal pain for 1 hour with no other symptoms denies any nausea vomiting constipation diarrhea or blood in stool patient also complaining of painful urination but no blood in urine no fever no chills patient have history of multiple visit here in the emergency room and patient was seen yesterday with the same symptoms and discharged with chronic abdominal pain patient have multiple blood test and CT scan of the abdomen pelvis which I reviewed and everything were normal physical examination patient is awake alert oriented not in distress nontoxic looking well-hydrated well-nourished abdominal exam is benign nonsurgical no guarding no rebound no rigidity no tenderness negative psoas negative obturator negative Rovsing's negative McBurney's no Warner sign negative CVA tenderness patient urinalysis showed WBC and urine suggestive of urinary tract infection test patient was given cephalexin for UTI patient will follow-up with PCP in 2 days for reevaluation and for any worsening symptoms or any emergent concern he will return in the emergency room immediately call [phone] Patient was discharged with comfortable condition walking with stable gait. Patient verbalized no further complains explained diagnosis and answered patient question. Patient is comfortable with the proposed management plan including t he need to follow up with his/her primary care physician and any specialist if applicable Discussed patient for any urgent condition or worsening sx, He/She needed to go to emergency room immediately or call 911. Patient acknowledge the responsibility to follow up as instructed and to monitor her/his symptoms. For any persistence of the symptoms for more than 3-5 days return precaution advised. Discussed the result of the test and was given printed discharge instruction Patient data External records reviewed:: [facility] previous records Clinical information provided by:: none Social determinants that could affect healthcare access:: none Patient has the following chronic illnesses:: None How is presenting disease/condition affected by chronic disease/condition?: no chronic disease Evaluation data The following diagnostics were reviewed and interpreted by me:: lab results Lab and/or radiology exams considered but not ordered:: Reviewed Interpretation Summary: Reviewed Medications / Prescriptions Medications or Prescriptions considered but not ordered:: Given Medication administrations:: Medication Administration History Discontinued Medications Cephalexin HCl (Cephalexin 250 Mg Capsule) 500 mg PO X1 ONE Stop: 12/28/24 03:35 Last Admin: 12/28/24 03:42 Dose: 500 mg Documented By: CB Ibuprofen (Ibuprofen Tab 400 Mg Tablet) 800 mg PO X1 ONE Stop: 12/28/24 03:35 Last Admin: 12/28/24 03:42 Dose: 800 mg Documented By: CB Given Consultations Consultation(s) initiated? (list below): No Diagnosis Differential diagnosis abdominal pain: abdominal pain and other (Urinary tract infection) Most likely diagnosis given after review of the tests above:: Urinary tract infection Admission Indicated Admission indicated?: not indicated Explain why admission is indicated or not indicated:: Not indicated Admission Request Was there a request for admission?: No Admission Attestation Admission request attestation: Not indicated Disposition Plan Disposition Plan: Discharge Discharge Attestation Discharge Attestation: The patient and all family members were given an opportunity to ask questions and understood the discharge instructions. Discharge instructions specifically effects, indications for sooner follow up or return to the emergency department, and the expected course of current diagnosis. Patient condition: Stable Discharge Plan Plan Patient Disposition: HOME (Self Care) Patient condition on transfer: Stable Prescriptions/Referrals Prescriptions/Med Rec: New cephalexin 500 mg capsule 500 mg PO QID Qty: 40 0RF phenazopyridine [Pyridium] 200 mg tablet 200 mg PO TID 2 Days Qty: 6 0RF No Action cetirizine-pseudoephedrine [Zyrtec-D] 5-120 mg tablet extended release 12 hr 1 tab PO BID PRN (Reason: sinus symptoms) Qty: 14 0RF diphenhydramine HCl [Benadryl] 25 mg capsule 25 mg PO Q8H PRN (Reason: allergic symptoms) Qty: 30 0RF ibuprofen 600 mg tablet 600 mg PO QID PRN (Reason: pain) Qty: 20 0RF ciprofloxacin HCl [Cipro] 500 mg tablet 500 mg PO BID Qty: 14 0RF metronidazole 500 mg tablet 500 mg PO BID Qty: 14 0RF dicyclomine 20 mg tablet 20 mg PO BID Qty: 20 0RF hydroxyzine HCl 50 mg tablet 50 mg PO Q6H PRN (Reason: anxiety) Qty: 20 0RF amoxicillin-pot clavulanate 875-125 mg tablet 1 tab PO BID Qty: 14 0RF ibuprofen 600 mg tablet 600 mg PO Q8H PRN (Reason: pain) Qty: 30 0RF acetaminophen 325 mg tablet 650 mg PO TID PRN (Reason: pain) Qty: 30 0RF lidocaine [Lidoderm] 5 % adhesive patch,medicated 2 patch topical QDAY PRN (Reason: pain) Qty: 30 0RF Rx Instructions: leave on most painful area for up to 12 hrs ibuprofen 600 mg tablet 600 mg PO Q8H PRN (Reason: pain) Qty: 14 0RF tizanidine 4 mg tablet 4 mg PO BID PRN (Reason: muscle spasticity) Qty: 20 0RF acetaminophen 500 mg tablet 500 mg PO Q6H PRN (Reason: pain) Qty: 30 0RF hydroxyzine pamoate 25 mg capsule 25 mg PO BID PRN (Reason: anxiety) Qty: 10 0RF albuterol sulfate [Ventolin HFA] 90 mcg/actuation HFA aerosol inhaler 1 inh inhalation Q4H PRN (Reason: shortness of breath or wheezing) Qty: 8.5 0RF cyclobenzaprine 7.5 mg tablet 7.5 mg PO TID PRN (Reason: muscle spasm) Qty: 30 0RF hydrocodone-acetaminophen 5-325 mg tablet 1 tab PO BID MDD 10 PRN (Reason: pain) Qty: 14 0RF sumatriptan succinate [Imitrex] 25 mg tablet 25 mg PO Q2H PRN (Reason: migraine headache) Qty: 10 0RF Rx Instructions: do not exceed 8 doses per 24 hrs ondansetron 4 mg tablet,disintegrating 4 mg PO Q8H PRN (Reason: nausea and vomiting) Qty: 20 0RF ibuprofen 800 mg tablet 800 mg PO Q8H PRN (Reason: pain) Qty: 20 0RF dicyclomine 20 mg tablet 20 mg PO QID PRN (Reason: abdominal pain) Qty: 30 0RF Referrals: Michael Rudolph MD [Primary Care Provider] - In 1 week Problem List Clinical Impression: Abdominal pain, Urinary tract infection Patient/Caregiver Discharge Instructions Education Materials: Abdominal Pain, Urinary Tract Infections in Men Additional Instructions: Follow-up with your primary care physician in 2 days for reevaluation and and treatment recurrence persistent worsening symptoms or any emergent concern call 911 or go to the nearest emergency room take your medication as directed finish the course of antibiotic keep hydrated Print Language: Malay Stand Alone Forms: [employer] Award Info., Patient Portal Info Letter PA/MEDICAL ASSISTANT INSTRUCTOR Supervising Physician PA/MEDICAL ASSISTANT INSTRUCTOR Supervising Physician: Dr. Yo Tavares
== END 2024-12-28 04:10 | disposition home or self-care (01) ==
PROVIDERS: Nurse Practitioner Family; Emergency Provider Emergency Medicine; PCP Family Medicine
DX: N39.0 Urinary tract infection, site not specified (principal); R10.32 Left lower quadrant pain
CPT/HCPCS: 81001; 99282; A9270

== ENCOUNTER 2024-12-30 01:10 | Emergency (ER) | payer MEDICAID, SELFPAY ==
[2024-12-30 01:16] VITALS: PULSE 100; O2SAT 98; BMI 21.1
[2024-12-30 01:36] VITALS: BP 142/94; PULSE 98; RESP 18; TEMP 36.6; O2SAT 99
[2024-12-30 03:36] VITALS: BP 160/101; PULSE 86; RESP 17; TEMP 36.8; O2SAT 100
--- NOTE | 2024-12-30 04:48 | PD.EDEAR ---
ED Ear RME/HPI General Chief complaint: Ear Stated complaint: HEAD PAIN, EAR PAIN, SOB Time Seen by Provider: 12/30/24 04:30 Arrival date/time: 12/30/24 01:10 RME / HPI RME / HPI Narrative: Dr. Rodriguez?s Main ED Evaluation: 39yo male Related Data Previous Rx's ?Medication ?Instructions ?Recorded cetirizine 5 mg-pseudoephedrine ER 1 tab PO BID PRN sinus symptoms 08/30/21 120 mg tablet,extended #14 tabs release,12hr (Zyrtec-D) diphenhydramine HCl 25 mg capsule 25 mg PO Q8H PRN allergic symptoms 09/23/22 (Benadryl) #30 caps ibuprofen 600 mg tablet 600 mg PO QID PRN pain #20 tabs 09/23/22 ciprofloxacin HCl 500 mg tablet 500 mg PO BID #14 tabs 11/29/22 (Cipro) dicyclomine 20 mg tablet 20 mg PO BID #20 tabs 11/29/22 metronidazole 500 mg tablet 500 mg PO BID #14 tabs 11/29/22 cyclobenzaprine 7.5 mg tablet 7.5 mg PO TID PRN muscle spasm #30 12/03/22 tabs hydrocodone 5 mg-acetaminophen 325 1 tab PO BID PRN pain #14 tabs 01/16/23 mg tablet hydroxyzine HCl 50 mg tablet 50 mg PO Q6H PRN anxiety #20 tabs 01/18/24 amoxicillin 875 mg-potassium 1 tab PO BID #14 tabs 02/07/24 clavulanate 125 mg tablet acetaminophen 325 mg tablet 650 mg (2 x 325 mg) PO TID PRN 02/11/24 pain #30 tabs ibuprofen 600 mg tablet 600 mg PO Q8H PRN pain #30 tabs 02/11/24 ibuprofen 600 mg tablet 600 mg PO Q8H PRN pain #14 tabs 02/15/24 lidocaine 5 % topical patch 2 patch topical QDAY PRN pain #30 02/15/24 (Lidoderm) ea acetaminophen 500 mg tablet 500 mg PO Q6H PRN pain #30 tabs 09/15/24 tizanidine 4 mg tablet 4 mg PO BID PRN muscle spasticity 09/15/24 #20 tabs sumatriptan succinate 25 mg tablet 25 mg PO Q2H PRN migraine headache 10/08/24 (Imitrex) #10 tabs albuterol sulfate 90 mcg/actuation 1 inh inhalation Q4H PRN shortness 11/06/24 aerosol inhaler (Ventolin HFA) of breath or wheezing #8.5 grams hydroxyzine pamoate 25 mg capsule 25 mg PO BID PRN anxiety #10 caps 11/06/24 ibuprofen 800 mg tablet 800 mg PO Q8H PRN pain #20 tabs 12/21/24 ondansetron 4 mg disintegrating 4 mg PO Q8H PRN nausea and 12/21/24 tablet vomiting #20 tabs dicyclomine 20 mg tablet 20 mg PO QID PRN abdominal pain 12/27/24 #30 tabs cephalexin 500 mg capsule 500 mg PO QID #40 caps 12/28/24 Allergies Allergy/AdvReac Type Severity Reaction Status Date / Time No Known Allergies Allergy Verified 12/30/24 01:19 Review of Systems Review of Systems Systems Reviewed: All systems reviewed, normal except as documented ED Exam Narrative Physical exam: GENERAL APPEARANCE: alert and oriented x 4, well-developed, well-nourished, no acute distress VITALS: All vitals were reviewed and the pulse ox is 100% on room air, which is normal according to my interpretation. HEENT: Normocephalic, atraumatic; pupils equal, round, reactive to light; EOMI; mucous membranes pink, moist; oropharynx clear NECK: Supple LUNGS: CTABL; no wheezes, no rales, no rhonchi HEART: Regular rate, regular rhythm; normal S1, S2; no murmurs ABDOMEN: non distended; normal BS; soft, no tenderness, no guarding, no rebound; no masses, no organomegaly, no hernia BACK: no CVA tenderness EXTREMITIES: atraumatic; no edema NEUROLOGIC: awake; alert and oriented x4; cranial nerves II-XII grossly intact; no focal sensory or motor deficits PSYCHIATRIC: appropriate mood and affect SKIN: warm, dry, normal color; no rashes Course Quality Measures none Vital Signs Vital signs: Vital Signs Temperature 98 F 12/30/24 01:36 Pulse Rate 98 12/30/24 01:36 Respiratory Rate 18 12/30/24 01:36 Blood Pressure 142/94 H 12/30/24 01:36 Pulse Oximetry (%) 99 12/30/24 01:36 Oxygen Delivery Method Room Air 12/30/24 01:36 Medical Decision Making MDM Narrative MDM Narrative: Scribe Attestation: 12/30/24 Tyra Segovia am scribing for and in the presence of Dr. Rodriguez. Discharge Plan Prescriptions/Referrals Prescriptions/Med Rec: No Action cetirizine-pseudoephedrine [Zyrtec-D] 5-120 mg tablet extended release 12 hr 1 tab PO BID PRN (Reason: sinus symptoms) Qty: 14 0RF diphenhydramine HCl [Benadryl] 25 mg capsule 25 mg PO Q8H PRN (Reason: allergic symptoms) Qty: 30 0RF ibuprofen 600 mg tablet 600 mg PO QID PRN (Reason: pain) Qty: 20 0RF ciprofloxacin HCl [Cipro] 500 mg tablet 500 mg PO BID Qty: 14 0RF metronidazole 500 mg tablet 500 mg PO BID Qty: 14 0RF dicyclomine 20 mg tablet 20 mg PO BID Qty: 20 0RF hydroxyzine HCl 50 mg tablet 50 mg PO Q6H PRN (Reason: anxiety) Qty: 20 0RF amoxicillin-pot clavulanate 875-125 mg tablet 1 tab PO BID Qty: 14 0RF ibuprofen 600 mg tablet 600 mg PO Q8H PRN (Reason: pain) Qty: 30 0RF acetaminophen 325 mg tablet 650 mg PO TID PRN (Reason: pain) Qty: 30 0RF lidocaine [Lidoderm] 5 % adhesive patch,medicated 2 patch topical QDAY PRN (Reason: pain) Qty: 30 0RF Rx Instructions: leave on most painful area for up to 12 hrs ibuprofen 600 mg tablet 600 mg PO Q8H PRN (Reason: pain) Qty: 14 0RF tizanidine 4 mg tablet 4 mg PO BID PRN (Reason: muscle spasticity) Qty: 20 0RF acetaminophen 500 mg tablet 500 mg PO Q6H PRN (Reason: pain) Qty: 30 0RF hydroxyzine pamoate 25 mg capsule 25 mg PO BID PRN (Reason: anxiety) Qty: 10 0RF albuterol sulfate [Ventolin HFA] 90 mcg/actuation HFA aerosol inhaler 1 inh inhalation Q4H PRN (Reason: shortness of breath or wheezing) Qty: 8.5 0RF cyclobenzaprine 7.5 mg tablet 7.5 mg PO TID PRN (Reason: muscle spasm) Qty: 30 0RF hydrocodone-acetaminophen 5-325 mg tablet 1 tab PO BID MDD 10 PRN (Reason: pain) Qty: 14 0RF sumatriptan succinate [Imitrex] 25 mg tablet 25 mg PO Q2H PRN (Reason: migraine headache) Qty: 10 0RF Rx Instructions: do not exceed 8 doses per 24 hrs ondansetron 4 mg tablet,disintegrating 4 mg PO Q8H PRN (Reason: nausea and vomiting) Qty: 20 0RF ibuprofen 800 mg tablet 800 mg PO Q8H PRN (Reason: pain) Qty: 20 0RF dicyclomine 20 mg tablet 20 mg PO QID PRN (Reason: abdominal pain) Qty: 30 0RF cephalexin 500 mg capsule 500 mg PO QID Qty: 40 0RF Referrals: Michael Rudolph MD [Primary Care Provider] - In 1 week Patient/Caregiver Discharge Instructions Print Language: Lao
--- NOTE | 2024-12-30 04:52 | PC.NURSE ---
WENT TO TALK WITH PT AND HE STATED HE WAS GOOD AND WAS GOING TO ANOTHER HOSPITAL
--- NOTE | 2024-12-30 05:13 | PC.NURSE ---
Pt was placed in old triage to be seen by MD. MD went into room to see pt but he was not there, noted by security to have walked outside saying he wanted to go to [facility]. Several minutes later pt was back at [facility] with [facility] who informed us that pt had called for EMS to take him to [facility]. Pt chose to sign out AMA at our facility to go to [facility]. Pt was explained to by our staff as well as EMS that if he chose to go to [facility] it would result in delay in care as he would have to start all over at their hospital. Pt responded with that's fine and left via ambulance to [facility]. Pt was A&O x4, GCS 15, showing no signs of distress.
== END 2024-12-30 05:17 | disposition left against medical advice (07) ==
PROVIDERS: Emergency Provider Family Medicine; PCP Family Medicine
DX: Z53.21 Procedure and treatment not carried out due to patient leaving prior to being seen by health care provider (principal)
CPT/HCPCS: 99281

== ENCOUNTER 2025-01-02 18:58 | Emergency (ER) | payer MEDICAID, SELFPAY ==
[2025-01-02 19:10] VITALS: BP 166/112; PULSE 126; RESP 19; TEMP 37; O2SAT 99
--- NOTE | 2025-01-02 19:42 | EKG_ITS ---
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
--- NOTE | 2025-01-02 19:42 | XR_ITS ---
Examination: PA chest single view Technique: Upright PA chest single view Date and time: January 02, 20252001 hrs., Comparison December 26, 2024 Indications: Difficulty breathing chest pain today. Findings: Normal heart size. Lungs are clear. The osseous structures are intact Impression: No active disease.
[2025-01-02] MEDS: DEXAMETHASONE SOD PHOS INJ 10 MG/ML VIAL IM (19:51)
[2025-01-02 20:14] LABS: Basophils # (Auto) 0.0 Thou/mm3 (0.0-0.2); Basophils % (Auto) 0 % (0-2.5); Eosinophils # (Auto) 0.0 Thou/mm3 (0.0-0.5); Eosinophils % (Auto) 0 % (0-10); Hematocrit 41.9 % (41.0-53.0); Hemoglobin 13.9 g/dL (13.5-16.0); Immature Granulocytes Auto 0.03 Thou/mm3 (0.00-0.00); Lymphocytes # (Auto) 0.9 Thou/mm3 (1.0-4.8); Lymphocytes % (Auto) 9 % (10-50); Mean Corpuscular HGB Conc 33.2 g/dl (31.0-37.0); Mean Corpuscular Hemoglobin 30.8 pg (25.0-35.0); Mean Corpuscular Volume 93 fL (80-100); Monocytes # (Auto) 0.5 Thou/mm3 (0.0-0.8); Monocytes % (Auto) 5 % (0-12); Neutrophils # (Auto) 8.0 Thou/mm3 (1.8-7.7); Neutrophils % (Auto) 85 % (37-80); Nucleated Red Blood Cell # 0.00 Thou/mm3 (0.00-0.00); Nucleated Red Blood Cell % 0 /100 WBC (0); Platelet Count 325 Thou/mm3 (140-440); RDW Standard Deviation 43.2 fL (35.1-43.9); Red Blood Count 4.51 Miln/mm3 (4.50-5.90); White Blood Count 9.4 Thou/mm3 (3.8-10.6)
[2025-01-02 20:30] LABS: B-Type Natriuretic Peptide 31 pg/mL (0-100)
[2025-01-02 20:32] LABS: D-Dimer < 250 ng/mL (<600)
[2025-01-02 20:36] LABS: Alanine Aminotransferase 12 U/L (10-49); Albumin, Serum 4.4 gm/dL (3.5-5.0); Albumin/Globulin Ratio 1.6 (1.2-2.2); Alkaline Phosphatase 75 U/L (46-116); Anion Gap 11 (7-16); Aspartate Amino Transferase 21 U/L (0-34); BUN/Creatinine Ratio 7 Ratio (12-20); Bilirubin,Total 0.3 mg/dL (0.3-1.2); Blood Urea Nitrogen 8 mg/dL (9-23); Calcium 9.4 mg/dL (8.3-10.6); Calcium (Corrected) 9.4 mg/dL (8.5-10.1); Carbon Dioxide 22.3 mMol/L (20.0-31.0); Chloride 110 mMol/L (98-107); Creatinine (Component) 1.2 mg/dL (0.6-1.3); Globulin 2.8 gm/dL (2.3-3.5); Glucose 115 mg/dL (74-106); Osmolality,Calculated 284 (275-295); Potassium 3.7 mMol/L (3.4-5.1); Sodium 143 mMol/L (136-145); Total Protein 7.2 gm/dL (5.7-8.2); Troponin I 0.025 ng/mL (0.0-0.045); eGFR > 60 See Note
--- NOTE | 2025-01-02 20:55 | EDNOTE_ITS ---
ED SOB =RME/HPI General Chief Complaint: Shortness of Breath/Dyspnea Stated Complaint: DIFFICULTY BREATHING FOR 1 HR Time Seen by Provider: 01/02/25 19:37 Arrival date/time: 01/02/25 18:58 This is a case of 39-year-old male with history of acute bronchitis came in in the emergency room due to cough and shortness of breath and chest pain pleuritic in character for 1 day persistence of the symptoms this patient decided to start consult here in the emergency room Limitations: no limitations Related Data Previous Rx's ?Medication ?Instructions ?Recorded cetirizine 5 mg-pseudoephedrine ER 1 tab PO BID PRN si nus symptoms 08/30/21 120 mg tablet,extended #14 tabs release,12hr (Zyrtec-D) diphenhydramine HCl 25 mg capsule 25 mg PO Q8H PRN all ergic symptoms 09/23/22 (Benadryl) #30 caps ibuprofen 600 mg tablet 600 mg PO QID PRN pain #20 t abs 09/23/22 ciprofloxacin HCl 500 mg tablet 500 mg PO BID #14 tabs 11/29/22 (Cipro) dicyclomine 20 mg tablet 20 mg PO BID #20 tabs metronidazole 500 mg tablet 500 mg PO BID #14 tabs cyclobenzaprine 7.5 mg tablet 7.5 mg PO TID PRN muscle spasm #30 12/03/22 tabs hydrocodone 5 mg-acetaminophen 325 1 tab PO BID PRN pa in #14 tabs 01/16/23 mg tablet hydroxyzine HCl 50 mg tablet 50 mg PO Q6H PRN anxiety #20 tabs 01/18/24 amoxicillin 875 mg-potassium 1 tab PO BID #14 tabs 09/25 clavulanate 125 mg tablet acetaminophen 325 mg tablet 650 mg (2 x 325 mg) PO TID PRN 02/11/24 pain #30 tabs ibuprofen 600 mg tablet 600 mg PO Q8H PRN pain #30 t abs 02/11/24 ibuprofen 600 mg tablet 600 mg PO Q8H PRN pain #14 t abs 02/15/24 lidocaine 5 % topical patch 2 patch topical QDAY PRN p ain #30 02/15/24 (Lidoderm) ea acetaminophen 500 mg tablet 500 mg PO Q6H PRN pain #30 tabs 09/15/24 tizanidine 4 mg tablet 4 mg PO BID PRN muscle spast icity 09/15/24 #20 tabs sumatriptan succinate 25 mg tablet 25 mg PO Q2H PRN mi graine headache 10/08/24 (Imitrex) #10 tabs albuterol sulfate 90 mcg/actuation 1 inh inhalation Q4 H PRN shortness 11/06/24 aerosol inhaler (Ventolin HFA) of breath or wheezing # 8.5 grams hydroxyzine pamoate 25 mg capsule 25 mg PO BID PRN anx iety #10 caps 11/06/24 ibuprofen 800 mg tablet 800 mg PO Q8H PRN pain #20 t abs 12/21/24 ondansetron 4 mg disintegrating 4 mg PO Q8H PRN nausea and 12/21/24 tablet vomiting #20 tabs dicyclomine 20 mg tablet 20 mg PO QID PRN abdominal p ain 12/27/24 #30 tabs cephalexin 500 mg capsule 500 mg PO QID #40 caps 12/28 Allergies Allergy/AdvReac Type Severity Reaction Status Date / Time No Known Allergies Allergy Verified 01/02/25 19:03 Review of Systems Review of Systems Systems Reviewed: All systems reviewed, normal except as documented Constitutional Constitutional: Reports system reviewed and no additional complaints, except as documented and Reports as per HPI Cardiovascular Cardiovascular: Reports system reviewed and no additional complaints, except as documented, Reports as per HPI, Reports chest pain and Reports dyspnea Respiratory Respiratory: Reports cough and Reports dyspnea Gastrointestinal Gastrointestinal: Reports system reviewed and no additional complaints, except as documented and Reports as per HPI Genitourinary Genitourinary: Reports system reviewed and no additional complaints, except as documented and Reports as per HPI Neurologic Neurologic: Reports system reviewed and no additional complaints, except as documented and Reports as per HPI Past Medical History Past Medical History NEUROLOGIC: Negative Neurological Disorders or Seizures CARDIAC: Negative Cardiac Disorders or Congestive Heart Failure RESPIRATORY: Negative Chronic Obstructive Pulmonary Disease (COPD) or Asthma GASTROINTESTINAL: Negative Gastrointestinal Disorders GENITOURINARY: Negative Genitourinary Disorders or Renal Disease MUSCULOSKELETAL: Negative Musculoskeletal Disorders ENDOCRINE: Negative Endocrine Disorders, Diabetes Mellitus Type 1 or Diabetes Mellitus Type 2 HEMATOLOGIC: Negative Blood Disorders or Sickle Cell Disease OTHER HISTORY: Positive Chicken Pox; Negative Hospitalization, Blood Transfusions, Blood Transfusion Reaction, Anesthesia Reactions or Cancer Social History SMOKING STATUS: Never smoker SUBSTANCE USE: does not use and methamphetamine ED Exam General Limitations: Present no limitations General appearance: Present alert, in no apparent distress and other (Patient is awake alert oriented not in distress nontoxic looking) Head Head exam: Present atraumatic, normocephalic and normal inspection Eye Eye exam: Present normal appearance, PERRL and EOMI ENT ENT exam: Present normal exam, normal oropharynx, mucous membranes moist and other (Normal HEENT exam) Neck Neck exam: Present normal inspection, full ROM and trachea midline; Absent tenderness, meningismus, lymphadenopathy or thyromegaly Chest Chest inspection: Present normal inspection and symmetric chest wall rise; Absent tenderness Respiratory Respiratory exam: Present normal lung sounds bilaterally and wheezes (Is in right lower lung field no crackles no rales no retraction no stridor); Absent respiratory distress, stridor, accessory muscle use or prolonged expiratory phase Cardiovascular Cardiovascular exam: Present regular rate, normal rhythm and normal heart sounds; Absent bradycardia, tachycardia, irregular rhythm, systolic murmur or diastolic murmur Abdominal Exam Abdominal exam: Present soft and normal bowel sounds Extremities Exam Extremities exam: Present normal inspection and full ROM Back Exam Back exam: Present normal inspection and full ROM Neurological Exam Neurological exam: Present alert, oriented X3, CN II-XII intact, normal gait and reflexes normal; Absent motor sensory deficit Psychiatric Psychiatric exam: Present normal affect and normal mood Skin Skin exam: Present warm, dry, intact and normal color Course Quality Measures none Orders Category Date Time Status EKG (ED ONLY) *Do not use* NOW Care 01/02/25 19:42 Completed EKG (ED Only) Stat Exams 01/02/25 19:42 Draft EKG (ED Only) Stat Exams 01/02/25 19:42 Ordered XR chest 1V portable Stat Exams 01/02/25 19:42 Taken BNP [B-Type Natriuretic Peptide] Stat Lab 01/02/25 19:50 Completed CBC Stat Lab 01/02/25 19:50 Completed CMP [Comprehensive Metabolic Panel] Stat Lab 01/02/25 19:50 Completed D-Dimer Stat Lab 01/02/25 19:50 Completed Troponin I Stat Lab 01/02/25 19:50 Completed Albuterol/Ipratr Rt Roseanne [Duoneb Rt Roseanne] Med 01/02/25 19:42 Discontinued 3 ml INH X1 ONE Dexamethasone Inj [Decadron Inj] Med 01/02/25 19:42 Discontinued 10 mg IM X1 ONE Vital Signs Vital signs: Vital Signs Temperature 98.6 F 01/02/25 19:10 Pulse Rate 126 H 01/02/25 19:10 Respiratory Rate 19 01/02/25 19:10 Blood Pressure 166/112 H 01/02/25 19:10 Pulse Oximetry (%) 99 01/02/25 19:10 Oxygen Delivery Method Room Air 01/02/25 19:10 Oxygen saturation is 99% in room air Shortness of Breath / Dyspnea MDM Narrative MDM Narrative:: This is a case of 39-year-old male with history of acute bronchitis came in in the emergency room due to cough and shortness of breath and chest pain pleuritic in character for 1 day persistence of the symptoms this patient decided to start consult here in the emergency room patient physical examination patient is awake alert oriented not in distress nontoxic looking patient lung sounds noted wheezing right lower lung field no crackles no rales no retraction no stridor heart normal rate regular rhythm no murmur vital signs stable and unremarkable the rest of the physical examination neurological exam is normal and unremarkable based on my physical examination and history patient symptoms suggestive of possible acute bronchitis test breathing treatment and steroid was ordered blood test and cardiac workup was also ordered but patient cannot wait for the treatment and further blood tests and to be seen again with the provider and left AGAINST MEDICAL ADVICE discussed with the patient her medical condition and the need for further evaluation and possible admission risks and dangers of leaving the hospital were clearly explained to the patient patient was strongly refused the treatment and blood test and imaging patient verbalized wanted to go home patient signed AMA with fully aware the risk of his decision patient is competent adult who is awake and alert and clearly understand the nature of his decision to refuse care at this time patient was also advised that he is welcome to return in the emergency room for further evaluation and treatment Patient data External records reviewed:: [facility] previous records Clinical information provided by:: patient Social determinants that could affect healthcare access:: none Patient has the following chronic illnesses:: None How is presenting disease/condition affected by chronic disease/condition?: no chronic disease Evaluation data The following diagnostics were reviewed and interpreted by me:: other (specify) (Refused) Lab and/or radiology exams considered but not ordered:: Refused Interpretation Summary: Refused Medications / Prescriptions Medications or Prescriptions considered but not ordered:: Refused Medication administrations:: Medication Administration History Discontinued Medications Albuterol/Ipratropium (Albuterol/Ipratropium (Duoneb) Rt Roseanne 3 Ml Nebu) 3 ml INH X1 ONE Stop: 01/02/25 19:43 Dexamethasone Sodium Phosphate (Dexamethasone Sod Phos Inj 10 Mg/Ml Vial) 10 mg IM X1 ONE Stop: 01/02/25 19:43 Last Admin: 01/02/25 19:51 Dose: 10 mg Documented By: SM Refused Consultations Consultation(s) initiated? (list below): No Diagnosis Shortness of Breath Differential Diagnosis: acute exacerbation of chronic obstructive airways disease, congestive heart failure, community acquired pneumonia, asthma with exacerbation and other Most likely diagnosis given after review of the tests above:: Acute bronchitis left AGAINST MEDICAL ADVICE Admission Indicated Admission indicated?: indicated Explain why admission is indicated or not indicated:: Patient left AGAINST MEDICAL ADVICE Admission Request Was there a request for admission?: No Admission Attestation Admission request attestation: Patient left AGAINST MEDICAL ADVICE Disposition Plan Disposition Plan: other (specify) (AMA) Discharge Attestation Discharge Attestation: AMA Discharge Plan Plan Patient Disposition: Left Against Medical Advice Prescriptions/Referrals Prescriptions/Med Rec: No Action cetirizine-pseudoephedrine [Zyrtec-D] 5-120 mg tablet extended release 12 hr 1 tab PO BID PRN (Reason: sinus symptoms) Qty: 14 0RF diphenhydramine HCl [Benadryl] 25 mg capsule 25 mg PO Q8H PRN (Reason: allergic symptoms) Qty: 30 0RF ibuprofen 600 mg tablet 600 mg PO QID PRN (Reason: pain) Qty: 20 0RF ciprofloxacin HCl [Cipro] 500 mg tablet 500 mg PO BID Qty: 14 0RF metronidazole 500 mg tablet 500 mg PO BID Qty: 14 0RF dicyclomine 20 mg tablet 20 mg PO BID Qty: 20 0RF hydroxyzine HCl 50 mg tablet 50 mg PO Q6H PRN (Reason: anxiety) Qty: 20 0RF amoxicillin-pot clavulanate 875-125 mg tablet 1 tab PO BID Qty: 14 0RF ibuprofen 600 mg tablet 600 mg PO Q8H PRN (Reason: pain) Qty: 30 0RF acetaminophen 325 mg tablet 650 mg PO TID PRN (Reason: pain) Qty: 30 0RF lidocaine [Lidoderm] 5 % adhesive patch,medicated 2 patch topical QDAY PRN (Reason: pain) Qty: 30 0RF Rx Instructions: leave on most painful area for up to 12 hrs ibuprofen 600 mg tablet 600 mg PO Q8H PRN (Reason: pain) Qty: 14 0RF tizanidine 4 mg tablet 4 mg PO BID PRN (Reason: muscle spasticity) Qty: 20 0RF acetaminophen 500 mg tablet 500 mg PO Q6H PRN (Reason: pain) Qty: 30 0RF hydroxyzine pamoate 25 mg capsule 25 mg PO BID PRN (Reason: anxiety) Qty: 10 0RF albuterol sulfate [Ventolin HFA] 90 mcg/actuation HFA aerosol inhaler 1 inh inhalation Q4H PRN (Reason: shortness of breath or wheezing) Qty: 8.5 0RF cyclobenzaprine 7.5 mg tablet 7.5 mg PO TID PRN (Reason: muscle spasm) Qty: 30 0RF hydrocodone-acetaminophen 5-325 mg tablet 1 tab PO BID MDD 10 PRN (Reason: pain) Qty: 14 0RF sumatriptan succinate [Imitrex] 25 mg tablet 25 mg PO Q2H PRN (Reason: migraine headache) Qty: 10 0RF Rx Instructions: do not exceed 8 doses per 24 hrs ondansetron 4 mg tablet,disintegrating 4 mg PO Q8H PRN (Reason: nausea and vomiting) Qty: 20 0RF ibuprofen 800 mg tablet 800 mg PO Q8H PRN (Reason: pain) Qty: 20 0RF dicyclomine 20 mg tablet 20 mg PO QID PRN (Reason: abdominal pain) Qty: 30 0RF cephalexin 500 mg capsule 500 mg PO QID Qty: 40 0RF Referrals: Michael Rudolph MD [Primary Care Provider] - In 1 week Problem List Clinical Impression: Shortness of breath, Chest pain, Acute bronchitis, Left against medical advice Patient/Caregiver Discharge Instructions Education Materials: Acute Bronchitis, ED Chest Pain, Uncertain Cause, ED Shortness of Breath (Dyspnea) Additional Instructions: Follow-up with your primary care physician or return in the emergency room tomorrow for reevaluation of your shortness of breath and chest pain for any worsening symptoms recurrence of the symptoms persistence of symptoms return to the emergency room immediately or call 911 Print Language: Danish PA/EXHAUST 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 Watson
== END 2025-01-02 20:31 | disposition left against medical advice (07) ==
PROVIDERS: Nurse Practitioner Family; Emergency Provider Emergency Medicine; PCP Family Medicine
DX: J20.9 Acute bronchitis, unspecified (principal); R00.0 Tachycardia, unspecified; Z53.29 Procedure and treatment not carried out because of patient's decision for other reasons
CPT/HCPCS: 36415; 71045; 80053; 83880; 84484; 85025; 85379; 93005; 96372; 99283; J1100

== ENCOUNTER 2025-01-03 10:24 | Emergency (ER) | payer MEDICAID, SELFPAY ==
[2025-01-03 10:25] VITALS: BMI 21.1
--- NOTE | 2025-01-03 10:28 | EKG_ITS ---
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
[2025-01-03 10:46] VITALS: BP 166/98; PULSE 138; RESP 18; TEMP 37.2; O2SAT 99
--- NOTE | 2025-01-03 10:52 | PD.EDADULT ---
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 Patient reports symptoms include shortness of breath, headache, body aches, and feeling globally weak. Evidently was evaluated at [facility] last night for similar symptom and discharged home. No other associated symptoms or complaints reported. Denies fevers, chills, sweats, abdominal pain, n/v/d, or urinary symptoms. Related Data Previous Rx's ?Medication ?Instructions ?Recorded cetirizine 5 mg-pseudoephedrine ER 1 tab PO BID PRN sinus symptoms 08/30/21 120 mg tablet,extended #14 tabs release,12hr (Zyrtec-D) diphenhydramine HCl 25 mg capsule 25 mg PO Q8H PRN allergic symptoms 09/23/22 (Benadryl) #30 caps ibuprofen 600 mg tablet 600 mg PO QID PRN pain #20 tabs 09/23/22 ciprofloxacin HCl 500 mg tablet 500 mg PO BID #14 tabs 11/29/22 (Cipro) dicyclomine 20 mg tablet 20 mg PO BID #20 tabs 11/29/22 metronidazole 500 mg tablet 500 mg PO BID #14 tabs 11/29/22 cyclobenzaprine 7.5 mg tablet 7.5 mg PO TID PRN muscle spasm #30 12/03/22 tabs hydrocodone 5 mg-acetaminophen 325 1 tab PO BID PRN pain #14 tabs 01/16/23 mg tablet hydroxyzine HCl 50 mg tablet 50 mg PO Q6H PRN anxiety #20 tabs 01/18/24 amoxicillin 875 mg-potassium 1 tab PO BID #14 tabs 02/07/24 clavulanate 125 mg tablet acetaminophen 325 mg tablet 650 mg (2 x 325 mg) PO TID PRN 02/11/24 pain #30 tabs ibuprofen 600 mg tablet 600 mg PO Q8H PRN pain #30 tabs 02/11/24 ibuprofen 600 mg tablet 600 mg PO Q8H PRN pain #14 tabs 02/15/24 lidocaine 5 % topical patch 2 patch topical QDAY PRN pain #30 02/15/24 (Lidoderm) ea acetaminophen 500 mg tablet 500 mg PO Q6H PRN pain #30 tabs 09/15/24 tizanidine 4 mg tablet 4 mg PO BID PRN muscle spasticity 09/15/24 #20 tabs sumatriptan succinate 25 mg tablet 25 mg PO Q2H PRN migraine headache 10/08/24 (Imitrex) #10 tabs albuterol sulfate 90 mcg/actuation 1 inh inhalation Q4H PRN shortness 11/06/24 aerosol inhaler (Ventolin HFA) of breath or wheezing #8.5 grams hydroxyzine pamoate 25 mg capsule 25 mg PO BID PRN anxiety #10 caps 11/06/24 ibuprofen 800 mg tablet 800 mg PO Q8H PRN pain #20 tabs 12/21/24 ondansetron 4 mg disintegrating 4 mg PO Q8H PRN nausea and 12/21/24 tablet vomiting #20 tabs dicyclomine 20 mg tablet 20 mg PO QID PRN abdominal pain 12/27/24 #30 tabs cephalexin 500 mg capsule 500 mg PO QID #40 caps 12/28/24 albuterol sulfate 90 mcg/actuation 2 puff inhalation Q6H PRN 01/03/25 aerosol inhaler (Ventolin HFA) shortness of breath or wheezing #8.5 grams ondansetron 4 mg disintegrating 4 mg PO Q8H PRN nausea and 01/03/25 tablet vomiting #20 tabs Allergies Allergy/AdvReac Type Severity Reaction Status Date / Time No Known Allergies Allergy Verified 01/03/25 15:24 Review of Systems Review of Systems Systems Reviewed: All systems reviewed, normal except as documented Past Medical History Past Medical History NEUROLOGIC: Negative Neurological Disorders CARDIAC: Negative Cardiac Disorders GASTROINTESTINAL: Negative Gastrointestinal Disorders GENITOURINARY: Negative Genitourinary Disorders or Renal Disease MUSCULOSKELETAL: Negative Musculoskeletal Disorders ENDOCRINE: Negative Endocrine Disorders OTHER HISTORY: Positive Chicken Pox Social History SMOKING STATUS: Never smoker SUBSTANCE USE: does not use and methamphetamine ED Exam General Limitations: Present no limitations General appearance: Present alert and in no apparent distress Head Head exam: Present atraumatic, normocephalic and normal inspection Eye Eye exam: Present normal appearance, PERRL and EOMI ENT ENT exam: Present normal exam, normal oropharynx and mucous membranes moist Neck Neck exam: Present normal inspection, full ROM and trachea midline Chest Chest inspection: Present normal inspection and symmetric chest wall rise Respiratory Respiratory exam: Present normal lung sounds bilaterally Cardiovascular Cardiovascular exam: Present regular rate, normal rhythm and normal heart sounds Abdominal Exam Abdominal exam: Present soft and normal bowel sounds Extremities Exam Extremities exam: Present normal inspection and full ROM Back Exam Back exam: Present normal inspection and full ROM Neurological Exam Neurological exam: Present alert, oriented X3 and CN II-XII intact Psychiatric Psychiatric exam: Present normal affect and normal mood Skin Skin exam: Present warm, dry, intact and normal color Course Quality Measures none Orders Category Date Time Status Bedside COVID-19 Antigen Test NOW Care 01/03/25 10:51 Completed Bedside Influenza A&B Antigen Test NOW Care 01/03/25 10:51 Completed EKG (ED ONLY) *Do not use* NOW Care 01/03/25 10:28 Completed EKG (ED Only) Stat Exams 01/03/25 10:28 Draft Strep A Rapid Stat Lab 01/03/25 11:12 Completed Vital Signs Vital signs: Vital Signs Temperature 99 F 01/03/25 10:46 Pulse Rate 138 H 01/03/25 10:46 Respiratory Rate 18 01/03/25 10:46 Blood Pressure 166/98 H 01/03/25 10:46 Pulse Oximetry (%) 99 01/03/25 10:46 Oxygen Delivery Method Room Air 01/03/25 10:46 Pulse ox is 99% on room air which is adequate. Discharge Plan Plan Patient Disposition: HOME (Self Care) Prescriptions/Referrals Prescriptions/Med Rec: No Action cetirizine-pseudoephedrine [Zyrtec-D] 5-120 mg tablet extended release 12 hr 1 tab PO BID PRN (Reason: sinus symptoms) Qty: 14 0RF diphenhydramine HCl [Benadryl] 25 mg capsule 25 mg PO Q8H PRN (Reason: allergic symptoms) Qty: 30 0RF ibuprofen 600 mg tablet 600 mg PO QID PRN (Reason: pain) Qty: 20 0RF ciprofloxacin HCl [Cipro] 500 mg tablet 500 mg PO BID Qty: 14 0RF metronidazole 500 mg tablet 500 mg PO BID Qty: 14 0RF dicyclomine 20 mg tablet 20 mg PO BID Qty: 20 0RF hydroxyzine HCl 50 mg tablet 50 mg PO Q6H PRN (Reason: anxiety) Qty: 20 0RF amoxicillin-pot clavulanate 875-125 mg tablet 1 tab PO BID Qty: 14 0RF ibuprofen 600 mg tablet 600 mg PO Q8H PRN (Reason: pain) Qty: 30 0RF acetaminophen 325 mg tablet 650 mg PO TID PRN (Reason: pain) Qty: 30 0RF lidocaine [Lidoderm] 5 % adhesive patch,medicated 2 patch topical QDAY PRN (Reason: pain) Qty: 30 0RF Rx Instructions: leave on most painful area for up to 12 hrs ibuprofen 600 mg tablet 600 mg PO Q8H PRN (Reason: pain) Qty: 14 0RF tizanidine 4 mg tablet 4 mg PO BID PRN (Reason: muscle spasticity) Qty: 20 0RF acetaminophen 500 mg tablet 500 mg PO Q6H PRN (Reason: pain) Qty: 30 0RF hydroxyzine pamoate 25 mg capsule 25 mg PO BID PRN (Reason: anxiety) Qty: 10 0RF albuterol sulfate [Ventolin HFA] 90 mcg/actuation HFA aerosol inhaler 1 inh inhalation Q4H PRN (Reason: shortness of breath or wheezing) Qty: 8.5 0RF cyclobenzaprine 7.5 mg tablet 7.5 mg PO TID PRN (Reason: muscle spasm) Qty: 30 0RF hydrocodone-acetaminophen 5-325 mg tablet 1 tab PO BID MDD 10 PRN (Reason: pain) Qty: 14 0RF sumatriptan succinate [Imitrex] 25 mg tablet 25 mg PO Q2H PRN (Reason: migraine headache) Qty: 10 0RF Rx Instructions: do not exceed 8 doses per 24 hrs ondansetron 4 mg tablet,disintegrating 4 mg PO Q8H PRN (Reason: nausea and vomiting) Qty: 20 0RF ibuprofen 800 mg tablet 800 mg PO Q8H PRN (Reason: pain) Qty: 20 0RF dicyclomine 20 mg tablet 20 mg PO QID PRN (Reason: abdominal pain) Qty: 30 0RF cephalexin 500 mg capsule 500 mg PO QID Qty: 40 0RF ondansetron 4 mg tablet,disintegrating 4 mg PO Q8H PRN (Reason: nausea and vomiting) Qty: 20 0RF albuterol sulfate [Ventolin HFA] 90 mcg/actuation HFA aerosol inhaler 2 puff inhalation Q6H PRN (Reason: shortness of breath or wheezing) Qty: 8.5 0RF Referrals: Michael Rudolph MD [Primary Care Provider] - In 1 week Problem List Clinical Impression: Dyspnea Patient/Caregiver Discharge Instructions Education Materials: ED Shortness of Breath (Dyspnea) Print Language: Kiswahili Stand Alone Forms: Selin Award Info., Patient Portal Info Letter MDM Narrative [facility] hospital course: ICarrol am scribing for and in the presence of Dr. Wade. Clinical Information Provided by patient Medical Records Reviewed [facility] I reviewed ED visit from yesterday Meds/Rx Considered, not Ordered None Labs/Rad/Tests considered, not Ordered None Chronic Illness/Social Conditions which may negatively complicate care or outcome(s)-explain: Mental health EKG EKG Interpretation narrative: 01/03/2025 @ 10:41 AM. Sinus tachycardia, rate 138, no acute ischemic changes, no STEMI. Lab Interpretation Labs: none Imaging Imaging interpretation: none Medication Administration(s) none Diagnosis Most likely dx, and/or detailed dx discussion: Dyspnea Dispositon Disposition: Discharge Home
[2025-01-03 12:02] LABS: Strep A Rapid Negative (Negative)
[2025-01-03 12:23] VITALS: PULSE 130; RESP 16; TEMP 37.2
== END 2025-01-03 12:23 | disposition home or self-care (01) ==
PROVIDERS: Emergency Provider Emergency Medicine; PCP Family Medicine
DX: R06.00 Dyspnea, unspecified (principal); R00.0 Tachycardia, unspecified
CPT/HCPCS: 87400; 87651; 87811; 93005; 99283

== ENCOUNTER 2025-01-03 12:25 | Emergency (ER) | payer MEDICAID, SELFPAY ==
[2025-01-03 12:25] VITALS: BMI 21.1
[2025-01-03 12:37] VITALS: BP 178/113; BP 182/117; PULSE 133; RESP 16; TEMP 36.8; O2SAT 99
[2025-01-03 13:38] VITALS: BP 182/117; PULSE 133
--- NOTE | 2025-01-03 13:57 | PC.CC ---
[id number] was asked by Emission Specialist to meet with pt as pt was requesting mental health services. ASW obtained [facility] services, AOD services, and homeless custodial resources such [facility]. Pt was receptive and accepted the resources.
[2025-01-03 15:15] VITALS: BP 144/86; PULSE 98
--- NOTE | 2025-01-03 15:47 | PD.EDADULT ---
ED General RME/HPI General Chief complaint: General Adult/Misc Complain Stated complaint: WANTS TO BE SEEN AGAIN, JUST DISCHARGED Time Seen by Provider: 01/03/25 12:26 Arrival date/time: 01/03/25 12:25 RME / HPI RME / HPI narrative: 39 year old male with history of anxiety, polysubstance abuse, and multiple ED visits for chest pain (last visit earlier today) returns to the ED for evaluation of I don't feel good . Patient reports symptoms include shortness of breath, headache, body aches, and feeling globally weak that have not improved. No other associated symptoms or complaints reported. Denies fevers, chills, sweats, abdominal pain, n/v/d, or urinary symptoms. Related Data Previous Rx's ?Medication ?Instructions ?Recorded cetirizine 5 mg-pseudoephedrine ER 1 tab PO BID PRN sinus symptoms 08/30/21 120 mg tablet,extended #14 tabs release,12hr (Zyrtec-D) diphenhydramine HCl 25 mg capsule 25 mg PO Q8H PRN allergic symptoms 09/23/22 (Benadryl) #30 caps ibuprofen 600 mg tablet 600 mg PO QID PRN pain #20 tabs 09/23/22 ciprofloxacin HCl 500 mg tablet 500 mg PO BID #14 tabs 11/29/22 (Cipro) dicyclomine 20 mg tablet 20 mg PO BID #20 tabs 11/29/22 metronidazole 500 mg tablet 500 mg PO BID #14 tabs 11/29/22 cyclobenzaprine 7.5 mg tablet 7.5 mg PO TID PRN muscle spasm #30 12/03/22 tabs hydrocodone 5 mg-acetaminophen 325 1 tab PO BID PRN pain #14 tabs 01/16/23 mg tablet hydroxyzine HCl 50 mg tablet 50 mg PO Q6H PRN anxiety #20 tabs 01/18/24 amoxicillin 875 mg-potassium 1 tab PO BID #14 tabs 02/07/24 clavulanate 125 mg tablet acetaminophen 325 mg tablet 650 mg (2 x 325 mg) PO TID PRN 02/11/24 pain #30 tabs ibuprofen 600 mg tablet 600 mg PO Q8H PRN pain #30 tabs 02/11/24 ibuprofen 600 mg tablet 600 mg PO Q8H PRN pain #14 tabs 02/15/24 lidocaine 5 % topical patch 2 patch topical QDAY PRN pain #30 02/15/24 (Lidoderm) ea acetaminophen 500 mg tablet 500 mg PO Q6H PRN pain #30 tabs 09/15/24 tizanidine 4 mg tablet 4 mg PO BID PRN muscle spasticity 09/15/24 #20 tabs sumatriptan succinate 25 mg tablet 25 mg PO Q2H PRN migraine headache 10/08/24 (Imitrex) #10 tabs albuterol sulfate 90 mcg/actuation 1 inh inhalation Q4H PRN shortness 11/06/24 aerosol inhaler (Ventolin HFA) of breath or wheezing #8.5 grams hydroxyzine pamoate 25 mg capsule 25 mg PO BID PRN anxiety #10 caps 11/06/24 ibuprofen 800 mg tablet 800 mg PO Q8H PRN pain #20 tabs 12/21/24 ondansetron 4 mg disintegrating 4 mg PO Q8H PRN nausea and 12/21/24 tablet vomiting #20 tabs dicyclomine 20 mg tablet 20 mg PO QID PRN abdominal pain 12/27/24 #30 tabs cephalexin 500 mg capsule 500 mg PO QID #40 caps 12/28/24 albuterol sulfate 90 mcg/actuation 2 puff inhalation Q6H PRN 01/03/25 aerosol inhaler (Ventolin HFA) shortness of breath or wheezing #8.5 grams ondansetron 4 mg disintegrating 4 mg PO Q8H PRN nausea and 01/03/25 tablet vomiting #20 tabs Allergies Allergy/AdvReac Type Severity Reaction Status Date / Time No Known Allergies Allergy Verified 01/03/25 15:24 Review of Systems Review of Systems Systems Reviewed: All systems reviewed, normal except as documented Past Medical History Past Medical History OTHER HISTORY: Positive Chicken Pox Social History SMOKING STATUS: Never smoker SUBSTANCE USE: does not use and methamphetamine ED Exam Narrative Physical exam: GENERAL APPEARANCE:? alert and oriented x 4, well-developed, well-nourished, no acute distress HEENT: normocephalic, atraumatic NECK: supple LUNGS: no respiratory distress, normal effort HEART: good peripheral perfusion ABDOMEN: non distended EXTREMITIES:? atraumatic NEUROLOGIC: awake; alert and oriented x4; cranial nerves II-XII grossly intact PSYCHIATRIC:? appropriate mood and affect SKIN: warm, dry, normal color; no rashes Course Quality Measures none Orders Category Date Time Status cloNIDine HCL [Catapres] Med 01/03/25 12:38 Discontinued 0.2 mg PO X1 ONE Vital Signs Vital signs: Vital Signs Temperature 98.2 F 01/03/25 12:37 Pulse Rate 133 H 01/03/25 12:37 Respiratory Rate 16 01/03/25 12:37 Blood Pressure 182/117 H 01/03/25 12:37 Pulse Oximetry (%) 99 01/03/25 12:37 Oxygen Delivery Method Room Air 01/03/25 12:37 Pulse ox is 99% on room air which is adequate. Critical Care Time Critical Care Time Critical Care Time: No Discharge Plan Plan Patient Disposition: HOME (Self Care) Prescriptions/Referrals Prescriptions/Med Rec: No Action cetirizine-pseudoephedrine [Zyrtec-D] 5-120 mg tablet extended release 12 hr 1 tab PO BID PRN (Reason: sinus symptoms) Qty: 14 0RF diphenhydramine HCl [Benadryl] 25 mg capsule 25 mg PO Q8H PRN (Reason: allergic symptoms) Qty: 30 0RF ibuprofen 600 mg tablet 600 mg PO QID PRN (Reason: pain) Qty: 20 0RF ciprofloxacin HCl [Cipro] 500 mg tablet 500 mg PO BID Qty: 14 0RF metronidazole 500 mg tablet 500 mg PO BID Qty: 14 0RF dicyclomine 20 mg tablet 20 mg PO BID Qty: 20 0RF hydroxyzine HCl 50 mg tablet 50 mg PO Q6H PRN (Reason: anxiety) Qty: 20 0RF amoxicillin-pot clavulanate 875-125 mg tablet 1 tab PO BID Qty: 14 0RF ibuprofen 600 mg tablet 600 mg PO Q8H PRN (Reason: pain) Qty: 30 0RF acetaminophen 325 mg tablet 650 mg PO TID PRN (Reason: pain) Qty: 30 0RF lidocaine [Lidoderm] 5 % adhesive patch,medicated 2 patch topical QDAY PRN (Reason: pain) Qty: 30 0RF Rx Instructions: leave on most painful area for up to 12 hrs ibuprofen 600 mg tablet 600 mg PO Q8H PRN (Reason: pain) Qty: 14 0RF tizanidine 4 mg tablet 4 mg PO BID PRN (Reason: muscle spasticity) Qty: 20 0RF acetaminophen 500 mg tablet 500 mg PO Q6H PRN (Reason: pain) Qty: 30 0RF hydroxyzine pamoate 25 mg capsule 25 mg PO BID PRN (Reason: anxiety) Qty: 10 0RF albuterol sulfate [Ventolin HFA] 90 mcg/actuation HFA aerosol inhaler 1 inh inhalation Q4H PRN (Reason: shortness of breath or wheezing) Qty: 8.5 0RF cyclobenzaprine 7.5 mg tablet 7.5 mg PO TID PRN (Reason: muscle spasm) Qty: 30 0RF hydrocodone-acetaminophen 5-325 mg tablet 1 tab PO BID MDD 10 PRN (Reason: pain) Qty: 14 0RF sumatriptan succinate [Imitrex] 25 mg tablet 25 mg PO Q2H PRN (Reason: migraine headache) Qty: 10 0RF Rx Instructions: do not exceed 8 doses per 24 hrs ondansetron 4 mg tablet,disintegrating 4 mg PO Q8H PRN (Reason: nausea and vomiting) Qty: 20 0RF ibuprofen 800 mg tablet 800 mg PO Q8H PRN (Reason: pain) Qty: 20 0RF dicyclomine 20 mg tablet 20 mg PO QID PRN (Reason: abdominal pain) Qty: 30 0RF cephalexin 500 mg capsule 500 mg PO QID Qty: 40 0RF ondansetron 4 mg tablet,disintegrating 4 mg PO Q8H PRN (Reason: nausea and vomiting) Qty: 20 0RF albuterol sulfate [Ventolin HFA] 90 mcg/actuation HFA aerosol inhaler 2 puff inhalation Q6H PRN (Reason: shortness of breath or wheezing) Qty: 8.5 0RF Referrals: Michael Rudolph MD [Primary Care Provider] - In 1 week Problem List Clinical Impression: Headache Patient/Caregiver Discharge Instructions Education Materials: Self-Care for Headaches Print Language: Armenian Stand Alone Forms: Selin Award Info., Patient Portal Info Letter MDM Narrative [facility] hospital course: Carrol Reza am scribing for and in the presence of Dr. Wade. Clinical Information Provided by patient Medical Records Reviewed [facility] Meds/Rx Considered, not Ordered None Labs/Rad/Tests considered, not Ordered None Chronic Illness/Social Conditions which may negatively complicate care or outcome(s)-explain: Mental health EKG EKG not done Lab Interpretation Labs: none Imaging Imaging interpretation: none Medication Administration(s) Medication Administration History Discontinued Medications Clonidine (Clonidine Hcl 0.1 Mg Tablet) 0.2 mg PO X1 ONE Stop: 01/03/25 12:39 Last Admin: 01/03/25 13:38 Dose: 0.2 mg Documented By: OA See above Diagnosis Most likely dx, and/or detailed dx discussion: Headache Dispositon Disposition: Discharge Home
== END 2025-01-03 15:16 | disposition home or self-care (01) ==
PROVIDERS: Emergency Provider Emergency Medicine; PCP Family Medicine
DX: R51.9 Headache, unspecified (principal)
CPT/HCPCS: 99283; A9270

== ENCOUNTER 2025-01-03 15:22 | Emergency (ER) | payer MEDICAID, SELFPAY ==
[2025-01-03 15:23] VITALS: BMI 21.1
[2025-01-03 15:44] VITALS: BP 170/90; PULSE 104; RESP 18; TEMP 36.9; O2SAT 98
--- NOTE | 2025-01-03 15:52 | EDNOTE_ITS ---
ED SOB =RME/HPI General Chief Complaint: General Adult/Misc Complain Stated Complaint: I FEEL FAINT, 3RD VISIT TODAY Time Seen by Provider: 01/03/25 15:28 Arrival date/time: 01/03/25 15:22 This is a case of 39 year old male with history of anxiety, polysubstance abuse, came in in the emergency room due to shortness of breath and nausea but no chest pain no abdominal pain no diarrhea no constipation no palpitation patient have history of multiple visit here in the emergency room this is his third visit today and was discharged with dyspnea I saw also this patient last night where he was complaining of chest pain cardiac workup was performed I reviewed the blood test and all were unremarkable patient eloped last night patient denies any chest pain right now only complaining of shortness of breath and associated nausea thus decided to sought consult here in the emergency room Limitations: no limitations Related Data Previous Rx's ?Medication ?Instructions ?Recorded cetirizine 5 mg-pseudoephedrine ER 1 tab PO BID PRN si nus symptoms 08/30/21 120 mg tablet,extended #14 tabs release,12hr (Zyrtec-D) diphenhydramine HCl 25 mg capsule 25 mg PO Q8H PRN all ergic symptoms 09/23/22 (Benadryl) #30 caps ibuprofen 600 mg tablet 600 mg PO QID PRN pain #20 t abs 09/23/22 ciprofloxacin HCl 500 mg tablet 500 mg PO BID #14 tabs 11/29/22 (Cipro) dicyclomine 20 mg tablet 20 mg PO BID #20 tabs metronidazole 500 mg tablet 500 mg PO BID #14 tabs cyclobenzaprine 7.5 mg tablet 7.5 mg PO TID PRN muscle spasm #30 12/03/22 tabs hydrocodone 5 mg-acetaminophen 325 1 tab PO BID PRN pa in #14 tabs 01/16/23 mg tablet hydroxyzine HCl 50 mg tablet 50 mg PO Q6H PRN anxiety #20 tabs 01/18/24 amoxicillin 875 mg-potassium 1 tab PO BID #14 tabs 09/25 clavulanate 125 mg tablet acetaminophen 325 mg tablet 650 mg (2 x 325 mg) PO TID PRN 02/11/24 pain #30 tabs ibuprofen 600 mg tablet 600 mg PO Q8H PRN pain #30 t abs 02/11/24 ibuprofen 600 mg tablet 600 mg PO Q8H PRN pain #14 t abs 02/15/24 lidocaine 5 % topical patch 2 patch topical QDAY PRN p ain #30 02/15/24 (Lidoderm) ea acetaminophen 500 mg tablet 500 mg PO Q6H PRN pain #30 tabs 09/15/24 tizanidine 4 mg tablet 4 mg PO BID PRN muscle spast icity 09/15/24 #20 tabs sumatriptan succinate 25 mg tablet 25 mg PO Q2H PRN mi graine headache 10/08/24 (Imitrex) #10 tabs albuterol sulfate 90 mcg/actuation 1 inh inhalation Q4 H PRN shortness 11/06/24 aerosol inhaler (Ventolin HFA) of breath or wheezing # 8.5 grams hydroxyzine pamoate 25 mg capsule 25 mg PO BID PRN anx iety #10 caps 11/06/24 ibuprofen 800 mg tablet 800 mg PO Q8H PRN pain #20 t abs 12/21/24 ondansetron 4 mg disintegrating 4 mg PO Q8H PRN nausea and 12/21/24 tablet vomiting #20 tabs dicyclomine 20 mg tablet 20 mg PO QID PRN abdominal p ain 12/27/24 #30 tabs cephalexin 500 mg capsule 500 mg PO QID #40 caps 12/28 albuterol sulfate 90 mcg/actuation 2 puff inhalation Q 6H PRN 01/03/25 aerosol inhaler (Ventolin HFA) shortness of breath or wheezing #8.5 grams ondansetron 4 mg disintegrating 4 mg PO Q8H PRN nausea and 01/03/25 tablet vomiting #20 tabs Allergies Allergy/AdvReac Type Severity Reaction Status Date / Time No Known Allergies Allergy Verified 01/03/25 15:24 Review of Systems Review of Systems Systems Reviewed: All systems reviewed, normal except as documented Constitutional Constitutional: Reports system reviewed and no additional complaints, except as documented, Reports as per HPI, Denies chills and Denies fever(s) ENT Ears, Nose, Mouth, and Throat: Reports system reviewed and no additional complaints, except as documented, Reports as per HPI, Denies dysphagia and Denies odynophagia Cardiovascular Cardiovascular: Reports system reviewed and no additional complaints, except as documented, Reports as per HPI, Denies chest pain and Reports dyspnea Respiratory Respiratory: Reports system reviewed and no additional complaints, except as documented, Denies cough and Reports dyspnea Gastrointestinal Gastrointestinal: Reports system reviewed and no additional complaints, except as documented, Reports as per HPI, Denies abdominal pain, Denies belching, Denies bloating, Denies change in bowel habits, Denies change in stool character, Denies coffee ground emesis, Denies constipation, Denies cramping, Denies diarrhea, Denies dyspepsia, Denies dysphagia, Denies early satiety, Denies excessive flatus, Denies fecal incontinence, Denies heartburn, Denies hematemesis, Denies hematochezia, Denies loose stools, Denies melena, Reports nausea, Denies odynophagia, Denies tenesmus and Denies vomiting Neurologic Neurologic: Reports system reviewed and no additional complaints, except as documented and Reports as per HPI Past Medical History Past Medical History NEUROLOGIC: Negative Neurological Disorders or Seizures CARDIAC: Negative Cardiac Disorders or Congestive Heart Failure RESPIRATORY: Negative Chronic Obstructive Pulmonary Disease (COPD) or Asthma GASTROINTESTINAL: Negative Gastrointestinal Disorders GENITOURINARY: Negative Genitourinary Disorders or Renal Disease MUSCULOSKELETAL: Negative Musculoskeletal Disorders ENDOCRINE: Negative Endocrine Disorders, Diabetes Mellitus Type 1 or Diabetes Mellitus Type 2 HEMATOLOGIC: Negative Blood Disorders or Sickle Cell Disease OTHER HISTORY: Positive Chicken Pox; Negative Hospitalization, Blood Transfusions, Blood Transfusion Reaction, Anesthesia Reactions or Cancer Social History SMOKING STATUS: Never smoker SUBSTANCE USE: does not use and methamphetamine ED Exam General Limitations: Present no limitations General appearance: Present alert, in no apparent distress and other (Patient is awake alert oriented not in distress nontoxic looking well-hydrated well-nouris hed) Head Head exam: Present atraumatic, normocephalic and normal inspection Eye Eye exam: Present normal appearance, PERRL and EOMI ENT ENT exam: Present normal exam, normal oropharynx, mucous membranes moist, mucous membranes dry, TM's normal bilaterally and other (Normal HEENT exam) Neck Neck exam: Present normal inspection, full ROM and trachea midline; Absent tenderness, meningismus, lymphadenopathy or thyromegaly Chest Chest inspection: Present normal inspection and symmetric chest wall rise; Absent tenderness Respiratory Respiratory exam: Present normal lung sounds bilaterally; Absent respiratory distress, wheezes, stridor, accessory muscle use or prolonged expiratory phase Cardiovascular Cardiovascular exam: Present regular rate, normal rhythm and normal heart sounds; Absent bradycardia, tachycardia, irregular rhythm, systolic murmur or diastolic murmur Abdominal Exam Abdominal exam: Present soft, normal bowel sounds and other (No CVA tenderness); Absent distention, tenderness, guarding, rebound, rigidity, diminished bowel sounds, hyperactive bowel sounds, hypoactive bowel sounds, organomegaly, trauma, psoas sign, obturator sign, Warner's sign, tenderness at McBurney's Point, ascit es or hernia Extremities Exam Extremities exam: Present normal inspection and full ROM Back Exam Back exam: Present normal inspection and full ROM Neurological Exam Neurological exam: Present alert, oriented X3, CN II-XII intact, normal gait and reflexes normal; Absent motor sensory deficit Psychiatric Psychiatric exam: Present normal affect and normal mood Skin Skin exam: Present warm, dry, intact and normal color Course Quality Measures none Orders Category Date Time Status Albuterol/Ipratr Rt Roseanne [Duoneb Rt Roseanne] Med 01/03/25 15:49 Discontinued 3 ml INH X1 ONE Ondansetron Odt [Zofran Odt] Med 01/03/25 15:49 Discontinued 4 mg PO X1 ONE Vital Signs Vital signs: Vital Signs Temperature 98.4 F 01/03/25 15:44 Pulse Rate 104 H 01/03/25 15:44 Respiratory Rate 18 01/03/25 15:44 Blood Pressure 170/90 H 01/03/25 15:44 Pulse Oximetry (%) 98 01/03/25 15:44 Oxygen Delivery Method Room Air 01/03/25 15:44 Patient is afebrile not tachycardic BP stable initial BP was 170/90 patient is looks anxious after 30 minutes here in the emergency room I repeated myself the blood pressure and noted to be 120/80 not tachycardic not tachypneic not hypoxic oxygen saturation is 98% in room air Shortness of Breath / Dyspnea MDM Narrative MDM Narrative:: This is a case of 39 year old male with history of anxiety, polysubstance abuse, came in in the emergency room due to shortness of breath and nausea but no chest pain no abdominal pain no diarrhea no constipation no palpitation patient have history of multiple visit here in the emergency room this is his third visit today and was discharged with dyspnea I saw also this patient last night where he was complaining of chest pain cardiac workup was performed I reviewed the blood test and all were unremarkable patient eloped last night patient denies any chest pain right now only complaining of shortness of breath and associated nausea thus decided to sought consult here in the emergency room physical examination patient is awake alert oriented not in distress nontoxic looking seems comfortable at the time of exam lungs sound is clear no crackles no rales no retraction no stridor heart normal rate regular rhythm no murmur abdominal exam is benign nonsurgical no guarding no rebound no rigidity no tenderness negative psoas negative straight or negative Rovsing's no McBurney's no Warner sign negative CVA tenderness at the time of exam there is no need to perform any blood test or any imaging since the patient was here last night and I reviewed all the test and all are unremarkable patient was given a breathing treatment and Zofran which patient condition markedly improved and resolved he was prescribed with Ventolin inhaler and Zofran he will follow-up with PCP return precaution at the ER was advised for worsening symptoms Patient was discharged with comfortable condition walking with stable gait. Patient verbalized no further complains explained diagnosis and answered patient question. Patient is comfortable with the proposed management plan including the need to follow up with his/her primary care physician and any specialist if applicable Discussed patient for any urgent condition or worsening sx, He/She needed to go to emergency room immediately or call 911. Patient acknowledge the responsibility to follow up as instructed and to monitor her/his symptoms. For any persistence of the symptoms for more than 3-5 days return precaution advised. Discussed the result of the test and was given printed discharge instruction Patient data External records reviewed:: [facility] previous records Clinical information provided by:: patient Social determinants that could affect healthcare access:: none Patient has the following chronic illnesses:: None How is presenting disease/condition affected by chronic disease/condition?: no chronic disease Evaluation data The following diagnostics were reviewed and interpreted by me:: lab results and radiology exam(s) Lab and/or radiology exams considered but not ordered:: Reviewed Interpretation Summary: Reviewed Medications / Prescriptions Medications or Prescriptions considered but not ordered:: Given Medication administrations:: Medication Administration History Discontinued Medications Albuterol/Ipratropium (Albuterol/Ipratropium (Duoneb) Rt Roseanne 3 Ml Nebu) 3 ml INH X1 ONE Stop: 01/03/25 15:50 Ondansetron HCl (Ondansetron Odt 4 Mg Tabrap) 4 mg PO X1 ONE; Protocol Stop: 01/03/25 15:50 Given Consultations Consultation(s) initiated? (list below): No Diagnosis Shortness of Breath Differential Diagnosis: other (Shortness of breath) Most likely diagnosis given after review of the tests above:: Shortness of breath Admission Indicated Admission indicated?: not indicated Explain why admission is indicated or not indicated:: Not indicated Admission Request Was there a request for admission?: No Admission Attestation Admission request attestation: Not indicated Disposition Plan Disposition Plan: Discharge Discharge Attestation Discharge Attestation: The patient and all family members were given an opportunity to ask questions and understood the discharge instructions. Discharge instructions specifically effects, indications for sooner follow up or return to the emergency department, and the expected course of current diagnosis. Patient condition: Stable Discharge Plan Plan Patient Disposition: HOME (Self Care) Patient condition on transfer: Stable Prescriptions/Referrals Prescriptions/Med Rec: New ondansetron 4 mg tablet,disintegrating 4 mg PO Q8H PRN (Reason: nausea and vomiting) Qty: 20 0RF albuterol sulfate [Ventolin HFA] 90 mcg/actuation HFA aerosol inhaler 2 puff inhalation Q6H PRN (Reason: shortness of breath or wheezing) Qty: 8.5 0RF No Action cetirizine-pseudoephedrine [Zyrtec-D] 5-120 mg tablet extended release 12 hr 1 tab PO BID PRN (Reason: sinus symptoms) Qty: 14 0RF diphenhydramine HCl [Benadryl] 25 mg capsule 25 mg PO Q8H PRN (Reason: allergic symptoms) Qty: 30 0RF ibuprofen 600 mg tablet 600 mg PO QID PRN (Reason: pain) Qty: 20 0RF ciprofloxacin HCl [Cipro] 500 mg tablet 500 mg PO BID Qty: 14 0RF metronidazole 500 mg tablet 500 mg PO BID Qty: 14 0RF dicyclomine 20 mg tablet 20 mg PO BID Qty: 20 0RF hydroxyzine HCl 50 mg tablet 50 mg PO Q6H PRN (Reason: anxiety) Qty: 20 0RF amoxicillin-pot clavulanate 875-125 mg tablet 1 tab PO BID Qty: 14 0RF ibuprofen 600 mg tablet 600 mg PO Q8H PRN (Reason: pain) Qty: 30 0RF acetaminophen 325 mg tablet 650 mg PO TID PRN (Reason: pain) Qty: 30 0RF lidocaine [Lidoderm] 5 % adhesive patch,medicated 2 patch topical QDAY PRN (Reason: pain) Qty: 30 0RF Rx Instructions: leave on most painful area for up to 12 hrs ibuprofen 600 mg tablet 600 mg PO Q8H PRN (Reason: pain) Qty: 14 0RF tizanidine 4 mg tablet 4 mg PO BID PRN (Reason: muscle spasticity) Qty: 20 0RF acetaminophen 500 mg tablet 500 mg PO Q6H PRN (Reason: pain) Qty: 30 0RF hydroxyzine pamoate 25 mg capsule 25 mg PO BID PRN (Reason: anxiety) Qty: 10 0RF albuterol sulfate [Ventolin HFA] 90 mcg/actuation HFA aerosol inhaler 1 inh inhalation Q4H PRN (Reason: shortness of breath or wheezing) Qty: 8.5 0RF cyclobenzaprine 7.5 mg tablet 7.5 mg PO TID PRN (Reason: muscle spasm) Qty: 30 0RF hydrocodone-acetaminophen 5-325 mg tablet 1 tab PO BID MDD 10 PRN (Reason: pain) Qty: 14 0RF sumatriptan succinate [Imitrex] 25 mg tablet 25 mg PO Q2H PRN (Reason: migraine headache) Qty: 10 0RF Rx Instructions: do not exceed 8 doses per 24 hrs ondansetron 4 mg tablet,disintegrating 4 mg PO Q8H PRN (Reason: nausea and vomiting) Qty: 20 0RF ibuprofen 800 mg tablet 800 mg PO Q8H PRN (Reason: pain) Qty: 20 0RF dicyclomine 20 mg tablet 20 mg PO QID PRN (Reason: abdominal pain) Qty: 30 0RF cephalexin 500 mg capsule 500 mg PO QID Qty: 40 0RF Referrals: No Primary/Family,Physician [Primary Care Provider] - In 1 week Problem List Clinical Impression: Shortness of breath, Nausea Patient/Caregiver Discharge Instructions Education Materials: ED Shortness of Breath (Dyspnea) Additional Instructions: Follow-up with your primary care physician in 2 days for reevaluation worsening symptoms or any emergent concern return to the emergency room immediately or call 911 take your medication as directed keep hydrated Print Language: Slovenian Stand Alone Forms: Selin Award Info., Patient Portal Info Letter PA/BILLBOARD MECHANIC Supervising Physician PA/BILLBOARD MECHANIC Supervising Physician: dr coleman
--- NOTE | 2025-01-03 16:00 | PD.EDADULT ---
ED General RME/HPI General Chief complaint: General Adult/Misc Complain Stated complaint: I FEEL FAINT, 3RD VISIT TODAY Time Seen by Provider: 01/03/25 15:28 Arrival date/time: 01/03/25 15:22 Limitations: no limitations RME / HPI RME / HPI narrative: 39 year old male with history of anxiety, polysubstance abuse, and multiple ED visits for chest pain (two visits earlier today) returns to the ED for evaluation of I don't feel good . Patient reports symptoms include shortness of breath, headache, body aches, and feeling globally weak that have not improved. No other associated symptoms or complaints reported. Denies fevers, chills, sweats, abdominal pain, n/v/d, or urinary symptoms. Related Data Previous Rx's ?Medication ?Instructions ?Recorded cetirizine 5 mg-pseudoephedrine ER 1 tab PO BID PRN sinus symptoms 08/30/21 120 mg tablet,extended #14 tabs release,12hr (Zyrtec-D) diphenhydramine HCl 25 mg capsule 25 mg PO Q8H PRN allergic symptoms 09/23/22 (Benadryl) #30 caps ibuprofen 600 mg tablet 600 mg PO QID PRN pain #20 tabs 09/23/22 ciprofloxacin HCl 500 mg tablet 500 mg PO BID #14 tabs 11/29/22 (Cipro) dicyclomine 20 mg tablet 20 mg PO BID #20 tabs 11/29/22 metronidazole 500 mg tablet 500 mg PO BID #14 tabs 11/29/22 cyclobenzaprine 7.5 mg tablet 7.5 mg PO TID PRN muscle spasm #30 12/03/22 tabs hydrocodone 5 mg-acetaminophen 325 1 tab PO BID PRN pain #14 tabs 01/16/23 mg tablet hydroxyzine HCl 50 mg tablet 50 mg PO Q6H PRN anxiety #20 tabs 01/18/24 amoxicillin 875 mg-potassium 1 tab PO BID #14 tabs 02/07/24 clavulanate 125 mg tablet acetaminophen 325 mg tablet 650 mg (2 x 325 mg) PO TID PRN 02/11/24 pain #30 tabs ibuprofen 600 mg tablet 600 mg PO Q8H PRN pain #30 tabs 02/11/24 ibuprofen 600 mg tablet 600 mg PO Q8H PRN pain #14 tabs 02/15/24 lidocaine 5 % topical patch 2 patch topical QDAY PRN pain #30 02/15/24 (Lidoderm) ea acetaminophen 500 mg tablet 500 mg PO Q6H PRN pain #30 tabs 09/15/24 tizanidine 4 mg tablet 4 mg PO BID PRN muscle spasticity 09/15/24 #20 tabs sumatriptan succinate 25 mg tablet 25 mg PO Q2H PRN migraine headache 10/08/24 (Imitrex) #10 tabs albuterol sulfate 90 mcg/actuation 1 inh inhalation Q4H PRN shortness 11/06/24 aerosol inhaler (Ventolin HFA) of breath or wheezing #8.5 grams hydroxyzine pamoate 25 mg capsule 25 mg PO BID PRN anxiety #10 caps 11/06/24 ibuprofen 800 mg tablet 800 mg PO Q8H PRN pain #20 tabs 12/21/24 ondansetron 4 mg disintegrating 4 mg PO Q8H PRN nausea and 12/21/24 tablet vomiting #20 tabs dicyclomine 20 mg tablet 20 mg PO QID PRN abdominal pain 12/27/24 #30 tabs cephalexin 500 mg capsule 500 mg PO QID #40 caps 12/28/24 albuterol sulfate 90 mcg/actuation 2 puff inhalation Q6H PRN 01/03/25 aerosol inhaler (Ventolin HFA) shortness of breath or wheezing #8.5 grams ondansetron 4 mg disintegrating 4 mg PO Q8H PRN nausea and 01/03/25 tablet vomiting #20 tabs Allergies Allergy/AdvReac Type Severity Reaction Status Date / Time No Known Allergies Allergy Verified 01/03/25 15:24 ED Exam General Limitations: Present no limitations General appearance: Present alert, in no apparent distress and other (Patient is awake alert oriented not in distress nontoxic looking well-hydrated well-nourished) Course Orders Category Date Time Status Albuterol/Ipratr Rt Roseanne [Duoneb Rt Roseanne] Med 01/03/25 15:49 Discontinued 3 ml INH X1 ONE Ondansetron Odt [Zofran Odt] Med 01/03/25 15:49 Discontinued 4 mg PO X1 ONE Vital Signs Vital signs: Vital Signs Temperature 98.4 F 01/03/25 15:44 Pulse Rate 104 H 01/03/25 15:44 Respiratory Rate 18 01/03/25 15:44 Blood Pressure 170/90 H 01/03/25 15:44 Pulse Oximetry (%) 98 01/03/25 15:44 Oxygen Delivery Method Room Air 01/03/25 15:44 Discharge Plan Plan Patient Disposition: HOME (Self Care) Patient condition on transfer: Stable Prescriptions/Referrals Prescriptions/Med Rec: New ondansetron 4 mg tablet,disintegrating 4 mg PO Q8H PRN (Reason: nausea and vomiting) Qty: 20 0RF albuterol sulfate [Ventolin HFA] 90 mcg/actuation HFA aerosol inhaler 2 puff inhalation Q6H PRN (Reason: shortness of breath or wheezing) Qty: 8.5 0RF No Action cetirizine-pseudoephedrine [Zyrtec-D] 5-120 mg tablet extended release 12 hr 1 tab PO BID PRN (Reason: sinus symptoms) Qty: 14 0RF diphenhydramine HCl [Benadryl] 25 mg capsule 25 mg PO Q8H PRN (Reason: allergic symptoms) Qty: 30 0RF ibuprofen 600 mg tablet 600 mg PO QID PRN (Reason: pain) Qty: 20 0RF ciprofloxacin HCl [Cipro] 500 mg tablet 500 mg PO BID Qty: 14 0RF metronidazole 500 mg tablet 500 mg PO BID Qty: 14 0RF dicyclomine 20 mg tablet 20 mg PO BID Qty: 20 0RF hydroxyzine HCl 50 mg tablet 50 mg PO Q6H PRN (Reason: anxiety) Qty: 20 0RF amoxicillin-pot clavulanate 875-125 mg tablet 1 tab PO BID Qty: 14 0RF ibuprofen 600 mg tablet 600 mg PO Q8H PRN (Reason: pain) Qty: 30 0RF acetaminophen 325 mg tablet 650 mg PO TID PRN (Reason: pain) Qty: 30 0RF lidocaine [Lidoderm] 5 % adhesive patch,medicated 2 patch topical QDAY PRN (Reason: pain) Qty: 30 0RF Rx Instructions: leave on most painful area for up to 12 hrs ibuprofen 600 mg tablet 600 mg PO Q8H PRN (Reason: pain) Qty: 14 0RF tizanidine 4 mg tablet 4 mg PO BID PRN (Reason: muscle spasticity) Qty: 20 0RF acetaminophen 500 mg tablet 500 mg PO Q6H PRN (Reason: pain) Qty: 30 0RF hydroxyzine pamoate 25 mg capsule 25 mg PO BID PRN (Reason: anxiety) Qty: 10 0RF albuterol sulfate [Ventolin HFA] 90 mcg/actuation HFA aerosol inhaler 1 inh inhalation Q4H PRN (Reason: shortness of breath or wheezing) Qty: 8.5 0RF cyclobenzaprine 7.5 mg tablet 7.5 mg PO TID PRN (Reason: muscle spasm) Qty: 30 0RF hydrocodone-acetaminophen 5-325 mg tablet 1 tab PO BID MDD 10 PRN (Reason: pain) Qty: 14 0RF sumatriptan succinate [Imitrex] 25 mg tablet 25 mg PO Q2H PRN (Reason: migraine headache) Qty: 10 0RF Rx Instructions: do not exceed 8 doses per 24 hrs ondansetron 4 mg tablet,disintegrating 4 mg PO Q8H PRN (Reason: nausea and vomiting) Qty: 20 0RF ibuprofen 800 mg tablet 800 mg PO Q8H PRN (Reason: pain) Qty: 20 0RF dicyclomine 20 mg tablet 20 mg PO QID PRN (Reason: abdominal pain) Qty: 30 0RF cephalexin 500 mg capsule 500 mg PO QID Qty: 40 0RF Referrals: No Primary/Family,Physician [Primary Care Provider] - In 1 week Problem List Clinical Impression: Shortness of breath, Nausea Patient/Caregiver Discharge Instructions Education Materials: ED Shortness of Breath (Dyspnea) Additional Instructions: Follow-up with your primary care physician in 2 days for reevaluation worsening symptoms or any emergent concern return to the emergency room immediately or call 911 take your medication as directed keep hydrated Print Language: Israeli Stand Alone Forms: Selin Award Info., Patient Portal Info Letter PA/SALES STORE CHECKER Supervising Physician PA/SALES STORE CHECKER Supervising Physician: dr coleman MDM Medication Administration(s) Medication Administration History Discontinued Medications Albuterol/Ipratropium (Albuterol/Ipratropium (Duoneb) Rt Roseanne 3 Ml Nebu) 3 ml INH X1 ONE Stop: 01/03/25 15:50 Ondansetron HCl (Ondansetron Odt 4 Mg Tabrap) 4 mg PO X1 ONE; Protocol Stop: 01/03/25 15:50
[2025-01-03] MEDS: ONDANSETRON ODT 4 MG TABRAP PO (16:01)
[2025-01-03] MEDS: ALBUTEROL/IPRATROPIUM (Duoneb) RT SOL 3 ML NEBU INH (16:29)
[2025-01-03 16:30] VITALS: PULSE 87; RESP 18; O2SAT 100
== END 2025-01-03 16:40 | disposition home or self-care (01) ==
PROVIDERS: Emergency Provider Emergency Medicine
DX: R06.02 Shortness of breath (principal); R11.2 Nausea with vomiting, unspecified
CPT/HCPCS: 94640; 99283; A9270; Q0162

== ENCOUNTER 2025-01-03 17:31 | Emergency (ER) | payer MEDICAID, SELFPAY ==
[2025-01-03 17:31] VITALS: BMI 21.1
--- NOTE | 2025-01-03 18:17 | PD.EDSOB ---
ED SOB =RME/HPI General Chief Complaint: General Adult/Misc Complain Stated Complaint: sob Time Seen by Provider: 01/03/25 18:14 Arrival date/time: 01/03/25 17:31 This is a case of 39-year-old male with history of anxiety and polysubstance abuse came in in the emergency room due to shortness of breath patient initially told the triage nurse that he is dizzy and feeling weak but at the time of exam patient denies. Patient have history of multiple visit here in the emergency room and I saw this patient few hours ago with only shortness of breath and nausea patient was given treatment here patient condition resolved patient went back due to shortness of breath no other symptoms noted Related Data Previous Rx's ?Medication ?Instructions ?Recorded cetirizine 5 mg-pseudoephedrine ER 1 tab PO BID PRN sinus symptoms 08/30/21 120 mg tablet,extended #14 tabs release,12hr (Zyrtec-D) diphenhydramine HCl 25 mg capsule 25 mg PO Q8H PRN allergic symptoms 09/23/22 (Benadryl) #30 caps ibuprofen 600 mg tablet 600 mg PO QID PRN pain #20 tabs 09/23/22 ciprofloxacin HCl 500 mg tablet 500 mg PO BID #14 tabs 11/29/22 (Cipro) dicyclomine 20 mg tablet 20 mg PO BID #20 tabs 11/29/22 metronidazole 500 mg tablet 500 mg PO BID #14 tabs 11/29/22 cyclobenzaprine 7.5 mg tablet 7.5 mg PO TID PRN muscle spasm #30 12/03/22 tabs hydrocodone 5 mg-acetaminophen 325 1 tab PO BID PRN pain #14 tabs 01/16/23 mg tablet hydroxyzine HCl 50 mg tablet 50 mg PO Q6H PRN anxiety #20 tabs 01/18/24 amoxicillin 875 mg-potassium 1 tab PO BID #14 tabs 02/07/24 clavulanate 125 mg tablet acetaminophen 325 mg tablet 650 mg (2 x 325 mg) PO TID PRN 02/11/24 pain #30 tabs ibuprofen 600 mg tablet 600 mg PO Q8H PRN pain #30 tabs 02/11/24 ibuprofen 600 mg tablet 600 mg PO Q8H PRN pain #14 tabs 02/15/24 lidocaine 5 % topical patch 2 patch topical QDAY PRN pain #30 02/15/24 (Lidoderm) ea acetaminophen 500 mg tablet 500 mg PO Q6H PRN pain #30 tabs 09/15/24 tizanidine 4 mg tablet 4 mg PO BID PRN muscle spasticity 09/15/24 #20 tabs sumatriptan succinate 25 mg tablet 25 mg PO Q2H PRN migraine headache 10/08/24 (Imitrex) #10 tabs albuterol sulfate 90 mcg/actuation 1 inh inhalation Q4H PRN shortness 11/06/24 aerosol inhaler (Ventolin HFA) of breath or wheezing #8.5 grams hydroxyzine pamoate 25 mg capsule 25 mg PO BID PRN anxiety #10 caps 11/06/24 ibuprofen 800 mg tablet 800 mg PO Q8H PRN pain #20 tabs 12/21/24 ondansetron 4 mg disintegrating 4 mg PO Q8H PRN nausea and 12/21/24 tablet vomiting #20 tabs dicyclomine 20 mg tablet 20 mg PO QID PRN abdominal pain 12/27/24 #30 tabs cephalexin 500 mg capsule 500 mg PO QID #40 caps 12/28/24 albuterol sulfate 90 mcg/actuation 2 puff inhalation Q6H PRN 01/03/25 aerosol inhaler (Ventolin HFA) shortness of breath or wheezing #8.5 grams ondansetron 4 mg disintegrating 4 mg PO Q8H PRN nausea and 01/03/25 tablet vomiting #20 tabs Allergies Allergy/AdvReac Type Severity Reaction Status Date / Time No Known Allergies Allergy Verified 01/03/25 15:24 Discharge Plan Plan Patient Disposition: HOME (Self Care) Patient condition on transfer: Stable Prescriptions/Referrals Prescriptions/Med Rec: No Action cetirizine-pseudoephedrine [Zyrtec-D] 5-120 mg tablet extended release 12 hr 1 tab PO BID PRN (Reason: sinus symptoms) Qty: 14 0RF diphenhydramine HCl [Benadryl] 25 mg capsule 25 mg PO Q8H PRN (Reason: allergic symptoms) Qty: 30 0RF ibuprofen 600 mg tablet 600 mg PO QID PRN (Reason: pain) Qty: 20 0RF ciprofloxacin HCl [Cipro] 500 mg tablet 500 mg PO BID Qty: 14 0RF metronidazole 500 mg tablet 500 mg PO BID Qty: 14 0RF dicyclomine 20 mg tablet 20 mg PO BID Qty: 20 0RF hydroxyzine HCl 50 mg tablet 50 mg PO Q6H PRN (Reason: anxiety) Qty: 20 0RF amoxicillin-pot clavulanate 875-125 mg tablet 1 tab PO BID Qty: 14 0RF ibuprofen 600 mg tablet 600 mg PO Q8H PRN (Reason: pain) Qty: 30 0RF acetaminophen 325 mg tablet 650 mg PO TID PRN (Reason: pain) Qty: 30 0RF lidocaine [Lidoderm] 5 % adhesive patch,medicated 2 patch topical QDAY PRN (Reason: pain) Qty: 30 0RF Rx Instructions: leave on most painful area for up to 12 hrs ibuprofen 600 mg tablet 600 mg PO Q8H PRN (Reason: pain) Qty: 14 0RF tizanidine 4 mg tablet 4 mg PO BID PRN (Reason: muscle spasticity) Qty: 20 0RF acetaminophen 500 mg tablet 500 mg PO Q6H PRN (Reason: pain) Qty: 30 0RF hydroxyzine pamoate 25 mg capsule 25 mg PO BID PRN (Reason: anxiety) Qty: 10 0RF albuterol sulfate [Ventolin HFA] 90 mcg/actuation HFA aerosol inhaler 1 inh inhalation Q4H PRN (Reason: shortness of breath or wheezing) Qty: 8.5 0RF cyclobenzaprine 7.5 mg tablet 7.5 mg PO TID PRN (Reason: muscle spasm) Qty: 30 0RF hydrocodone-acetaminophen 5-325 mg tablet 1 tab PO BID MDD 10 PRN (Reason: pain) Qty: 14 0RF sumatriptan succinate [Imitrex] 25 mg tablet 25 mg PO Q2H PRN (Reason: migraine headache) Qty: 10 0RF Rx Instructions: do not exceed 8 doses per 24 hrs ondansetron 4 mg tablet,disintegrating 4 mg PO Q8H PRN (Reason: nausea and vomiting) Qty: 20 0RF ibuprofen 800 mg tablet 800 mg PO Q8H PRN (Reason: pain) Qty: 20 0RF dicyclomine 20 mg tablet 20 mg PO QID PRN (Reason: abdominal pain) Qty: 30 0RF cephalexin 500 mg capsule 500 mg PO QID Qty: 40 0RF ondansetron 4 mg tablet,disintegrating 4 mg PO Q8H PRN (Reason: nausea and vomiting) Qty: 20 0RF albuterol sulfate [Ventolin HFA] 90 mcg/actuation HFA aerosol inhaler 2 puff inhalation Q6H PRN (Reason: shortness of breath or wheezing) Qty: 8.5 0RF Referrals: No Primary/Family,Physician [Primary Care Provider] - In 1 week Problem List Clinical Impression: Shortness of breath Patient/Caregiver Discharge Instructions Education Materials: ED Shortness of Breath (Dyspnea) Additional Instructions: Follow-up with your primary care physician in 2 days for reevaluation and treatment worsening symptoms or any emergent concern call 911 or go to the nearest emergency room continue the medication that I prescribed earlier keep hydrated Print Language: Yakut Stand Alone Forms: Selin Award Info., Patient Portal Info Letter PA/UNIVERSITY LIBRARIAN Supervising Physician PA/UNIVERSITY LIBRARIAN Supervising Physician: dr coleman
[2025-01-03 18:19] VITALS: BP 175/88; PULSE 111; RESP 18; TEMP 36.6; O2SAT 99
== END 2025-01-03 20:56 | disposition home or self-care (01) ==
PROVIDERS: Emergency Provider Emergency Medicine
DX: R06.02 Shortness of breath (principal)
CPT/HCPCS: 99281

== ENCOUNTER 2025-01-06 23:13 | Emergency (ER) | payer MEDICAID, SELFPAY ==
[2025-01-06 23:14] VITALS: PULSE 116; RESP 18; O2SAT 98
[2025-01-07] VITALS (9 sets, daily range): BP systolic 93–183; BP diastolic 59–135; PULSE 60–109; RESP 16–20; TEMP 36–37.2; O2SAT 97–100; BMI 21.1
--- NOTE | 2025-01-07 00:27 | PC.NURSE ---
PATIENT HAS COME TO THE TRIAGE DESK MULTIPLE TIMES ASKING FOR MOTRIN OR TYLENOL FOR HIS HEADACHE. THIS USER HAS ADVISED HIM MULTIPLE TIMES THAT HE NEEDS TO SEE A PROVIDER FIRST TO HAVE MEDICATIONS ORDERED AND THAT I CAN NOT DISPENSE MEDICATIONS. PT CAME TO ER VIA AMBULANCE AND [facility] 20 MINS AGO WENT OUTSIDE ER DOORS AND CALLED 911. EMS ARRIVED A PATIENT TOLD THEM HE WANTED TO BE TAKEN TO [facility] BECAUSE HE NEEDS TO BE TREATED. STAFF AND EMS PERSONAL HAVE TRIED MULTIPLE TIMES TO MAKE HIM AWARE THAT THAT IS WHY HE CAME HERE WAS FOR MEDICAL ATTENTION. PT BECOMING INCREASINGLY MORE MANIC, GOING IN AND OUT OF THE DEPARTMENT TALKING TO EMS AND TELLING THE ER TRIAGE NURSE THE SAME THING. PT SEEMS TO NOT BE ABLE TO COMPREHEND HIS ACTIONS. PT CURRENTLY REMAINS ON THE PHONE WITH 911 DISPATCH. [facility] CALLED
--- NOTE | 2025-01-07 00:47 | EDNOTE_ITS ---
ED SOB =RME/HPI General Chief Complaint: Psychiatric Symptoms Stated Complaint: SHORTNESS OF BREATH Time Seen by Provider: 01/07/25 00:47 Arrival date/time: 01/06/25 23:13 RME / HPI RME / HPI Narrative: See MDM for Dr. Lara's HPI documentation. Related Data Previous Rx's ?Medication ?Instructions ?Recorded cetirizine 5 mg-pseudoephedrine ER 1 tab PO BID PRN si nus symptoms 08/30/21 120 mg tablet,extended #14 tabs release,12hr (Zyrtec-D) diphenhydramine HCl 25 mg capsule 25 mg PO Q8H PRN all ergic symptoms 09/23/22 (Benadryl) #30 caps ibuprofen 600 mg tablet 600 mg PO QID PRN pain #20 t abs 09/23/22 ciprofloxacin HCl 500 mg tablet 500 mg PO BID #14 tabs 11/29/22 (Cipro) dicyclomine 20 mg tablet 20 mg PO BID #20 tabs metronidazole 500 mg tablet 500 mg PO BID #14 tabs cyclobenzaprine 7.5 mg tablet 7.5 mg PO TID PRN muscle spasm #30 12/03/22 tabs hydrocodone 5 mg-acetaminophen 325 1 tab PO BID PRN pa in #14 tabs 01/16/23 mg tablet hydroxyzine HCl 50 mg tablet 50 mg PO Q6H PRN anxiety #20 tabs 01/18/24 amoxicillin 875 mg-potassium 1 tab PO BID #14 tabs 09/25 clavulanate 125 mg tablet acetaminophen 325 mg tablet 650 mg (2 x 325 mg) PO TID PRN 02/11/24 pain #30 tabs ibuprofen 600 mg tablet 600 mg PO Q8H PRN pain #30 t abs 02/11/24 ibuprofen 600 mg tablet 600 mg PO Q8H PRN pain #14 t abs 02/15/24 lidocaine 5 % topical patch 2 patch topical QDAY PRN p ain #30 02/15/24 (Lidoderm) ea acetaminophen 500 mg tablet 500 mg PO Q6H PRN pain #30 tabs 09/15/24 tizanidine 4 mg tablet 4 mg PO BID PRN muscle spast icity 09/15/24 #20 tabs sumatriptan succinate 25 mg tablet 25 mg PO Q2H PRN mi graine headache 10/08/24 (Imitrex) #10 tabs albuterol sulfate 90 mcg/actuation 1 inh inhalation Q4 H PRN shortness 11/06/24 aerosol inhaler (Ventolin HFA) of breath or wheezing # 8.5 grams hydroxyzine pamoate 25 mg capsule 25 mg PO BID PRN anx iety #10 caps 11/06/24 ibuprofen 800 mg tablet 800 mg PO Q8H PRN pain #20 t abs 12/21/24 ondansetron 4 mg disintegrating 4 mg PO Q8H PRN nausea and 12/21/24 tablet vomiting #20 tabs dicyclomine 20 mg tablet 20 mg PO QID PRN abdominal p ain 12/27/24 #30 tabs cephalexin 500 mg capsule 500 mg PO QID #40 caps 12/28 albuterol sulfate 90 mcg/actuation 2 puff inhalation Q 6H PRN 01/03/25 aerosol inhaler (Ventolin HFA) shortness of breath or wheezing #8.5 grams ondansetron 4 mg disintegrating 4 mg PO Q8H PRN nausea and 01/03/25 tablet vomiting #20 tabs Allergies Allergy/AdvReac Type Severity Reaction Status Date / Time No Known Allergies Allergy Verified 01/03/25 15:24 Review of Systems Review of Systems Systems Reviewed: All systems reviewed, normal except as documented Past Medical History Past Medical History NEUROLOGIC: Negative Neurological Disorders or Seizures CARDIAC: Negative Cardiac Disorders or Congestive Heart Failure RESPIRATORY: Negative Chronic Obstructive Pulmonary Disease (COPD) or Asthma GASTROINTESTINAL: Negative Gastrointestinal Disorders GENITOURINARY: Negative Genitourinary Disorders or Renal Disease MUSCULOSKELETAL: Negative Musculoskeletal Disorders ENDOCRINE: Negative Endocrine Disorders, Diabetes Mellitus Type 1 or Diabetes Mellitus Type 2 HEMATOLOGIC: Negative Blood Disorders or Sickle Cell Disease OTHER HISTORY: Positive Chicken Pox; Negative Hospitalization, Blood Transfusions, Blood Transfusion Reaction, Anesthesia Reactions or Cancer Social History SMOKING STATUS: Never smoker SUBSTANCE USE: does not use and methamphetamine ED Exam Narrative Physical exam: See [facility] for Dr. Lara's physical exam documentation. Course Quality Measures none Orders Category Date Time Status 1798 Psychiatric Hold NOW Care 01/07/25 01:00 Ordered EKG (ED ONLY) *Do not use* NOW Care 01/07/25 00:54 Completed Referral Psych Eval Stat Cons 01/07/25 00:[address] chest abdomen pelvis wo Stat Exams 01/07/25 00:[address] head/brain wo con Stat Exams 01/07/25 00:55 Ordered EKG (ED Only) Stat Exams 01/07/25 00:54 Ordered XR chest 1V portable Stat Exams 01/07/25 00:54 Taken Acetaminophen Stat Lab 01/07/25 03:05 Completed Alcohol, Blood Medical Stat Lab 01/07/25 03:05 Completed BNP [B-Type Natriuretic Peptide] Stat Lab 01/07/25 03:05 Completed Beta Hydroxybutyrate Stat Lab 01/07/25 03:05 Completed Bilirubin,Direct Stat Lab 01/07/25 03:05 Completed CBC Stat Lab 01/07/25 03:05 Completed CK [Creatine Kinase] Stat Lab 01/07/25 03:05 Completed CMP [Comprehensive Metabolic Panel] Stat Lab 01/07/25 03:05 Completed D-Dimer Stat Lab 01/07/25 03:05 Completed Drug Screen,Urine Stat Lab 01/07/25 00:55 Ordered Magnesium Stat Lab 01/07/25 03:05 Completed Salicylate Stat Lab 01/07/25 03:05 Completed TSH [Thyroid Stimulating Hormone] Stat Lab 01/07/25 03:05 Completed Troponin I Stat Lab 01/07/25 03:05 Completed UA, C/S IF [Urinalysis, C/S if Indicated] Stat Lab 01/07/25 00:56 Ordered ALPRazoLAM [Xanax] Med 01/07/25 02:57 Discontinued 1 mg PO X1 ONE Diazepam Inj [Valium Inj] Med 01/07/25 03:05 Discontinued 10 mg IM X1 ONE Haloperidol Lactate [Haldol Inj] Med 01/07/25 03:05 Discontinued 10 mg IM X1 ONE KCL 10% Liq UDC 15 ML Med 01/07/25 05:22 Once 40 meq PO X1 ONE Metoprolol Succinate Xl [Toprol Xl] Med 01/07/25 00:54 Discontinued 100 mg PO X1 ONE cloNIDine HCL [Catapres] Med 01/07/25 00:54 Discontinued 0.3 mg PO X1 ONE Vital Signs Vital signs: Vital Signs Temperature 98.0 F 01/07/25 00:35 Pulse Rate 109 H 01/07/25 00:35 Respiratory Rate 17 01/07/25 00:35 Blood Pressure 175/117 H 01/07/25 00:35 Pulse Oximetry (%) 99 01/07/25 00:35 Oxygen Delivery Method Room Air 01/07/25 00:35 Shortness of Breath / Dyspnea MDM Narrative MDM Narrative:: This section includes all my notes and documentations, including HPI, PE, and ED course. Boston Lara MD HPI: 39yo male here with headache and chest pain and shortness of breath. Obtaining history from the patient is difficult because he doesn't answer questions directly. For example, when he is asked questions about his headache, he talks about [facility]. May be due to psychosis. He has been here multiple times every month since September. In December, he came here almost every other day. And this month in January, he has been here almost daily. Today, he called 911 in the lobby and again in the sidewalk just outside the door. Uncertain about thoughts of hurting himself or others, because he talks about something else when asked about it. Very difficult to obtain accurate history and any history in depth. ROS: Unable to obtain due to current clinical condition. Physical Exam: General: Alert. Uncertain about orientation. Flat affect noted. Equivocal delusions. High BP noted. Eyes: Conjunctivae and lids clear. PERRL. EOMI. ENT: No nasal congestion. Neck: Supple. Heart: Sinus tachycardia noted. Lungs: No respiratory distress. Good air movement. No rhonchi, wheezing, rales. Abdomen: Soft and nontender. Normal bowel sounds. No distension. No rebound or guarding. Skin: Warm and dry. Neuro: Cranial nerves II to XII grossly normal. No peripheral motor deficits. Placed patient on 1798 hold. Prior to the diagnostic test results, he was given oral clonidine 0.3 mg and oral metoprolol succinate 100 mg. Due to patient not being still in the room and pacing and trying to get out of the room, Xanax ordered but patient declined. With worsening, he was given Haldol 10 mg IM and diazepam 10 mg IM. Improvement noted. I reviewed all returned diagnostic test results. My interpretation of the EKG is sinus rhythm with no ST-T changes. My interpretation of the chest x-ray is NAD. Blood tests remarkable for K 3.3. Oral KCl ordered. Urine specimen pending. CT scans pending. At this point, diagnoses include: Psychosis Hypertensive urgency Entered order for evaluation by our ED physician primary care sports medicine. At 6 AM on 01/07/2025, the care of the patient was transferred to Dr. Hein. Boston Lara MD Patient data External records reviewed:: [facility] previous records (Per chart review, patient was seen here on 01/03/25 for nausea.) Clinical information provided by:: patient Social determinants that could affect healthcare access:: substance use Patient has the following chronic illnesses:: none How is presenting disease/condition affected by chronic disease/condition?: no chronic disease Evaluation data The following diagnostics were reviewed and interpreted by me:: lab results and EKG tracing(s) (My interpretation of the EKG: NSR (100 bpm) with no ST-T changes. Boston Lara MD) Lab and/or radiology exams considered but not ordered:: none Interpretation Summary: I reviewed all diagnostic test results. My interpretation of the EKG is sinus rhythm with no ST-T changes. My interpretation of the chest x-ray is NAD. Blood tests remarkable for K 3.3. Urine specimen pending. CT scans pending. Medications / Prescriptions Medications or Prescriptions considered but not ordered:: none Medication administrations:: Medication Administration History Potassium Chloride (Potassium Chloride 10% 20 Meq/15 Ml Udc) 40 meq PO X1 ONE Stop: 01/07/25 05:23 Discontinued Medications Alprazolam (Alprazolam 0.25 Mg Tablet) 1 mg PO X1 ONE Stop: 01/07/25 02:58 Last Admin: 01/07/25 03:44 Dose: Not Given Documented By: CVL Non-Admin Reason: Cancelled by Provider Clonidine (Clonidine Hcl 0.1 Mg Tablet) 0.3 mg PO X1 ONE Stop: 01/07/25 00:55 Last Admin: 01/07/25 01:33 Dose: 0.3 mg Documented By: [email or web address] Diazepam (Diazepam Inj 5 Mg/Ml Vial 2 Ml) 10 mg IM X1 ONE Stop: 01/07/25 03:06 Last Admin: 01/07/25 03:24 Dose: 10 mg Documented By: [email or web address] Haloperidol Lactate (Haloperidol Lact Inj 5 Mg/Ml Vial) 10 mg IM X1 ONE Stop: 01/07/25 03:06 Last Admin: 01/07/25 03:23 Dose: 10 mg Documented By: SERGE Metoprolol Succinate (Metoprolol Succinate Xl 25 Mg Tabcr) 100 mg PO X1 ONE Stop: 01/07/25 00:55 Last Admin: 01/07/25 01:33 Dose: 100 mg Documented By: SERGE Prior to the diagnostic test results, he was given oral clonidine 0.3 mg and oral metoprolol succinate 100 mg. Due to patient not being still in the room and pacing and trying to get out of the room, Xanax ordered but patient declined. With worsening, he was given Haldol 10 mg IM and diazepam 10 mg IM. Improvement noted. Oral KCl ordered for K 3.3. Consultations Consultation(s) initiated? (list below): No Diagnosis Shortness of Breath Differential Diagnosis: other (acute psychosis, drug-induced psychosis, electrolyte imbalance) Most likely diagnosis given after review of the tests above:: Psychosis Hypertensive urgency Admission Indicated Admission indicated?: not indicated Explain why admission is indicated or not indicated:: No psychiatric service at this facility Admission Request Was there a request for admission?: No Disposition Plan Disposition Plan: other (specify) (Signed out to Dr. Hein at 6 AM.) Discharge Plan Prescriptions/Referrals Prescriptions/Med Rec: No Action cetirizine-pseudoephedrine [Zyrtec-D] 5-120 mg tablet extended release 12 hr 1 tab PO BID PRN (Reason: sinus symptoms) Qty: 14 0RF diphenhydramine HCl [Benadryl] 25 mg capsule 25 mg PO Q8H PRN (Reason: allergic symptoms) Qty: 30 0RF ibuprofen 600 mg tablet 600 mg PO QID PRN (Reason: pain) Qty: 20 0RF ciprofloxacin HCl [Cipro] 500 mg tablet 500 mg PO BID Qty: 14 0RF metronidazole 500 mg tablet 500 mg PO BID Qty: 14 0RF dicyclomine 20 mg tablet 20 mg PO BID Qty: 20 0RF hydroxyzine HCl 50 mg tablet 50 mg PO Q6H PRN (Reason: anxiety) Qty: 20 0RF amoxicillin-pot clavulanate 875-125 mg tablet 1 tab PO BID Qty: 14 0RF ibuprofen 600 mg tablet 600 mg PO Q8H PRN (Reason: pain) Qty: 30 0RF acetaminophen 325 mg tablet 650 mg PO TID PRN (Reason: pain) Qty: 30 0RF lidocaine [Lidoderm] 5 % adhesive patch,medicated 2 patch topical QDAY PRN (Reason: pain) Qty: 30 0RF Rx Instructions: leave on most painful area for up to 12 hrs ibuprofen 600 mg tablet 600 mg PO Q8H PRN (Reason: pain) Qty: 14 0RF tizanidine 4 mg tablet 4 mg PO BID PRN (Reason: muscle spasticity) Qty: 20 0RF acetaminophen 500 mg tablet 500 mg PO Q6H PRN (Reason: pain) Qty: 30 0RF hydroxyzine pamoate 25 mg capsule 25 mg PO BID PRN (Reason: anxiety) Qty: 10 0RF albuterol sulfate [Ventolin HFA] 90 mcg/actuation HFA aerosol inhaler 1 inh inhalation Q4H PRN (Reason: shortness of breath or wheezing) Qty: 8.5 0RF cyclobenzaprine 7.5 mg tablet 7.5 mg PO TID PRN (Reason: muscle spasm) Qty: 30 0RF hydrocodone-acetaminophen 5-325 mg tablet 1 tab PO BID MDD 10 PRN (Reason: pain) Qty: 14 0RF sumatriptan succinate [Imitrex] 25 mg tablet 25 mg PO Q2H PRN (Reason: migraine headache) Qty: 10 0RF Rx Instructions: do not exceed 8 doses per 24 hrs ondansetron 4 mg tablet,disintegrating 4 mg PO Q8H PRN (Reason: nausea and vomiting) Qty: 20 0RF ibuprofen 800 mg tablet 800 mg PO Q8H PRN (Reason: pain) Qty: 20 0RF dicyclomine 20 mg tablet 20 mg PO QID PRN (Reason: abdominal pain) Qty: 30 0RF cephalexin 500 mg capsule 500 mg PO QID Qty: 40 0RF ondansetron 4 mg tablet,disintegrating 4 mg PO Q8H PRN (Reason: nausea and vomiting) Qty: 20 0RF albuterol sulfate [Ventolin HFA] 90 mcg/actuation HFA aerosol inhaler 2 puff inhalation Q6H PRN (Reason: shortness of breath or wheezing) Qty: 8.5 0RF Referrals: No Primary/Family,Physician [Primary Care Provider] - In 1 week Problem List Clinical Impression: Psychosis, Hypertensive urgency Patient/Caregiver Discharge Instructions Print Language: Belarusian
--- NOTE | 2025-01-07 00:54 | EKG_ITS ---
[facility] Test Date: 2025-01-07 Pat Name: DAIANA MEDINA Department: Room: - Gender: Male Development Coordinator: : 1985 Requested By: Boston Manzano Order Number: [id number] Reading MD: Boston Manzano Measurements Intervals [place] Rate: 102 P: 64 [place]: 155 QRS: 62 QRSD: 82 T: 72 QT: 335 QTc: 436 Interpretive Statements SINUS TACHYCARDIA ABNORMAL RHYTHM ECG Compared to ECG 01/03/2025 10:41:53 No significant changes /store/S0/[id number].pdf
--- NOTE | 2025-01-07 00:54 | XR_ITS ---
Examination: AP chest single view Technique: AP portable upright chest single view Date and time: January 07, 2025, 0119 hrs. Indications: Shortness of breath today. Findings: Normal heart size. Lungs are clear. The osseous structures are intact. Impression: No active disease.
--- NOTE | 2025-01-07 00:55 | XR_ITS ---
Examination: CT chest, without intravenous contrast. CT abdomen, without intravenous contrast. CT pelvis, without intravenous contrast. 2-D sagittal and coronal reconstructions. 3-D reconstructions. Date and time of exam:January 07, 2025, 0541 hrs. Indication: Chest pain shortness of breath abdominal pain today CTDI vol (mgy) 8.09 DLP (MGycm)595 Technique: Multiple CT images, 3.0 mm slice thickness, obtained chest, abdomen, pelvis, with the high-resolution 64 slice scanner.. Sagittal and coronal 2-D reconstructions are obtained. 3-D reconstructions Low dose protocols were performed. One or more of the following dose reduction techniques were used; automated exposure control, adjustment of the mA and/or KV according to patient size, use of iterative reconstruction technique. Findings: Thoracic aorta pulmonary arteries intact. No mediastinal lymphadenopathy. No pneumonia pulmonary edema or pleural disease. No visualized liver or splenic lesion No gallstones. No pancreatic mass. No renal or ureteral calculi. Aorta normal size. Tiny fat-containing umbilical hernia. Normal appendix. No bowel obstruction Urinary bladder intact. Osseous structures intact Impression: No acute process in the chest abdomen or pelvis
--- NOTE | 2025-01-07 00:55 | XR_ITS ---
Examination: CT brain head without contrast. 2-D sagittal coronal reconstructions Date and time of exam:January 07, 2025, 0540 hrs. Indications: High blood pressure with headache onset today. CTDI: vol (mGy):46.5. DLP: (mGycm):920. Technique: Multiple CT axial sections of the brain have been obtained, 5 mm slice thickness. Contrast has not been administered. 2-D sagittal, coronal reconstructions have been obtained Low dose protocols were performed. One or more of the following dose reduction techniques were used; automated exposure control, adjustment of the mA and/or KV according to patient size, use of iterative reconstruction technique. Findings: No significant ventricular enlargement. Intra-axial or extra-axial hemorrhage density is not seen. No mass effect or midline shift Basal cisterns are not remarkable. Fourth ventricle is midline. Cranial vault intact. Impression: Negative for acute hemorrhage, mass effect or midline shift
[2025-01-07] MEDS: METOPROLOL SUCCINATE XL 25 MG TABCR 100 MG PO (01:33)
--- NOTE | 2025-01-07 03:00 | PC.NURSE ---
PT PACING BACK AND FOURTH TRYING TO GET OUT OF ROOM. PT ATTEMPTED TO BE REDIRECTED BACK INTO ROOM BUT PT NOT FOLLOWING COMMANDS. PT SHOUTING HE WANTS TO TALK TO HIS DR. MD BENAVIDEZ INFORMED, AND SPEAKING TO PT AT THIS TIME. NEW ORDERS PROVIDED.
[2025-01-07] MEDS: HALOPERIDOL LACT INJ 5 MG/ML VIAL 10 MG IM (03:23)
[2025-01-07] MEDS: DIAZEPAM INJ 5 MG/ML VIAL 2 ML 10 MG IM (03:24)
[2025-01-07 03:35] LABS: Basophils # (Auto) 0.0 Thou/mm3 (0.0-0.2); Basophils % (Auto) 0 % (0-2.5); Eosinophils # (Auto) 0.0 Thou/mm3 (0.0-0.5); Eosinophils % (Auto) 1 % (0-10); Hematocrit 41.9 % (41.0-53.0); Hemoglobin 14.3 g/dL (13.5-16.0); Immature Granulocytes Auto 0.02 Thou/mm3 (0.00-0.00); Lymphocytes # (Auto) 1.6 Thou/mm3 (1.0-4.8); Lymphocytes % (Auto) 21 % (10-50); Mean Corpuscular HGB Conc 34.1 g/dl (31.0-37.0); Mean Corpuscular Hemoglobin 31.0 pg (25.0-35.0); Mean Corpuscular Volume 91 fL (80-100); Monocytes # (Auto) 0.6 Thou/mm3 (0.0-0.8); Monocytes % (Auto) 8 % (0-12); Neutrophils # (Auto) 5.5 Thou/mm3 (1.8-7.7); Neutrophils % (Auto) 71 % (37-80); Nucleated Red Blood Cell # 0.00 Thou/mm3 (0.00-0.00); Nucleated Red Blood Cell % 0 /100 WBC (0); Platelet Count 416 Thou/mm3 (140-440); RDW Standard Deviation 40.7 fL (35.1-43.9); Red Blood Count 4.62 Miln/mm3 (4.50-5.90); White Blood Count 7.8 Thou/mm3 (3.8-10.6)
[2025-01-07 03:39] LABS: Beta Hydroxybutyrate 0.2 mmol/L (<0.6)
[2025-01-07 03:54] LABS: D-Dimer < 250 ng/mL (<600)
[2025-01-07 04:00] LABS: B-Type Natriuretic Peptide < 20 pg/mL (0-100)
[2025-01-07 04:04] LABS: Acetaminophen < 2.0 mcg/mL (10.0-20.0); Alanine Aminotransferase 14 U/L (10-49); Albumin, Serum 4.6 gm/dL (3.5-5.0); Albumin/Globulin Ratio 2.1 (1.2-2.2); Alcohol, Blood Medical < 3.0 mg/dL (0-10.0); Alkaline Phosphatase 78 U/L (46-116); Anion Gap 11 (7-16); Aspartate Amino Transferase 20 U/L (0-34); BUN/Creatinine Ratio 8 Ratio (12-20); Bilirubin,Direct 0.2 mg/dL (0.0-0.3); Bilirubin,Total 0.5 mg/dL (0.3-1.2); Blood Urea Nitrogen 10 mg/dL (9-23); Calcium 9.8 mg/dL (8.3-10.6); Calcium (Corrected) 9.8 mg/dL (8.5-10.1); Carbon Dioxide 27.4 mMol/L (20.0-31.0); Chloride 102 mMol/L (98-107); Creatine Kinase 165 U/L (34-171); Creatinine (Component) 1.2 mg/dL (0.6-1.3); Estimated Creatinine Clearance 73.0 mL/min (>60); Globulin 2.2 gm/dL (2.3-3.5); Glucose 121 mg/dL (74-106); Magnesium 1.8 mg/dL (1.6-2.6); Osmolality,Calculated 279 (275-295); Potassium 3.3 mMol/L (3.4-5.1); Salicylate < 3.0 mg/dL; Sodium 140 mMol/L (136-145); Thyroid Stimulating Hormone 1.00 uIU/mL (0.55-4.78); Total Protein 6.8 gm/dL (5.7-8.2); Troponin I < 0.020 ng/mL (0.0-0.045); eGFR > 60 See Note
--- NOTE | 2025-01-07 05:53 | PRELIM_ITS ---
CT scan of the head without intravenous contrast (axial sections with sagittal and coronal reformats). January 07, 2025 0540 hours Clinical History: Headache and high BP Comparison: None currently available for review Findings: There is no intracranial hemorrhage, extra-axial collection, mass, mass-effect or midline shift. There is good de la rosa-white differentiation. There is no CT evidence of acute large vascular territorial infarct. Ventricles are not enlarged or effaced. There is atherosclerotic calcification along the intracranial right vertebral artery. Visualized paranasal sinuses and tympanomastoid cavities are clear. The bony calvarium is intact. Impression: No intracranial hemorrhage, mass-effect or midline shift. No CT evidence of acute large vascular territorial infarct. Report Electronically Signed By: Roland Alarcon 01/07/2025 5:52:09 AM [EST]
--- NOTE | 2025-01-07 06:24 | PRELIM_ITS ---
CT scan of the chest, abdomen and pelvis without intravenous contrast (axial sections with sagittal and coronal reformats): January 07, 2025 at 0541 hours Clinical History: Shortness of breath, abdomen pain. Reference is made to the CT prior report dated October 08, 2024 (no available prior images at the moment of interpreting). Findings: The lungs are clear. There is no pleural effusion or pneumothorax. The aorta is unremarkable on this noncontrast study. No evidence of mediastinal mass or lymphadenopathy. There is no pericardial effusion. The liver, gallbladder, spleen, pancreas, adrenals and kidneys are unremarkable on this noncontrast study. No evidence of bowel obstruction. There is mild wall thickening versus underdistention of the stomach. The appendix is within normal limits (images [id number], series 2). The urinary bladder is unremarkable. There is no free fluid or free air. The osseous structures are unremarkable. Impression: No evidence of acute intrathoracic, intraabdominal or pelvic pathology on this noncontrast study. Other findings as described above. Report Electronically Signed By: Jorge Hopkins 01/07/2025 6:23:54 AM [EST]
--- NOTE | 2025-01-07 08:30 | PC.NURSE ---
Patient to er from [facility] and c/o feels like he has steak stuck in his throat since 10pm last night, Dr. Hein at bedside attempting to do fluid challenge with with patient. Patient unable to swallow water, spits it out immediately and states he feels like it wont pass, patient speaking full 8-10 word sentences, denies sob, new orders received.
--- NOTE | 2025-01-07 08:59 | PC.NURSE ---
Patent awake and alert and oriented x 3, patient states he came to er with c/o sob and not feeling right, patient denies son and denies pain at this time, cooperative and calm, patient on 1798 hold for odd behavior last pm. Patient awaiting M/H evaluation by S/S, sitter in place for patients safety.
[2025-01-07 09:10] LABS: Collection Type, Urine Clean Catch; Squamous Epithelial Cell,Urine 0 /hpf (0-5)
[2025-01-07 09:15] LABS: Bilirubin,Urine Negative (Negative); Blood,Urine Negative (Negative); Clarity,Urine Clear (Clear/Hazy); Color,Urine Lt-Yellow (Lt Yel-Yel); Culture Indicated,Urine Not Indicated; Glucose, Urine Negative (Negative); Ketones,Urine Negative (Negative); Leukocyte Esterase,Urine Negative (Negative); Nitrite,Urine Negative (Negative); PH,Urine 6.5 (5.0-7.0); Protein,Urine Trace (Neg - Trace); RBC,Urine 3 /hpf (0-3); Specific Gravity,Urine 1.018 (1.001-1.035); Urobilinogen,Urine Negative mg/dL (0.0-1.0); WBC,Urine < 1 /hpf (0-5)
[2025-01-07 09:34] LABS: Amphetamine/Methamp Scrn,U Positive (Negative); Barbiturate Screen,Urine Negative (Negative); Benzodiazepines Screen,Urine Positive (Negative); Benzoylecgonine Screen, Ur Negative (Negative); Fentanyl Screen,Urine Negative (Negative); Opiate Screen,Urine Negative (Negative); THC Screen,Urine Negative (Negative)
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
--- NOTE | 2025-01-07 09:58 | EDNOTE_ITS ---
Emergency Room Addendum Addendum Narrative: 0600: Care assumed from Dr. Lara, the previous shift emergency physician. Past medical, surgical, social and family history reviewed. Vitals and home medications reviewed. I will assume the care of the patient at this time, pending medical clearance for mental health evaluation. Please refer to the emergency department record for history and examination from initial visit.?The following addendum documentation note is intended to reflect any pending information, findings, or radiology results not included in the patient?s initial chart. Radiology reports in the ED were negative for acute findings. Head CT Negative for acute hemorrhage, mass effect or midline shift . CT chest/abdomen/pelvis No acute process in the chest abdomen or pelvis . Labs are unremarkable and within normal limits. The patient is medically cleared for mental health evaluation. property worker has met with the patient and cleared to go home. States the patient was provided with outpatient mental health resources. In the ED, patient has remained stable. Will DC home.
== END 2025-01-07 15:10 | disposition home or self-care (01) ==
PROVIDERS: Emergency Medicine; Emergency Provider Family Medicine
DX: F29 Unspecified psychosis not due to a substance or known physiological condition (principal); I16.0 Hypertensive urgency
CPT/HCPCS: 36415; 70450; 71045; 71250; 74176; 80053; 80307; 80320; 80329; 81001; 82010; 82248; 82550; 83735; 83880; 84443; 84484; 85025; 85379; 93005; 96127; 96372; 99284; J1630; J3360; A9270; G0480

== ENCOUNTER 2025-01-16 03:05 | Emergency (ER) | payer MEDICAID, SELFPAY ==
[2025-01-16 03:06] VITALS: BP 158/111; PULSE 112; RESP 18; TEMP 36.7; O2SAT 98
[2025-01-16 03:07] VITALS: PULSE 82; RESP 18; O2SAT 99; BMI 21.1
--- NOTE | 2025-01-16 03:25 | PD.EDHA ---
ED Headache RME/HPI General Chief Complaint: Headache Stated Complaint: HEADACHE X3 HOURS Time Seen by Provider: 01/16/25 03:15 Arrival date/time: 01/16/25 03:05 This is a case of 39-year-old male who have history of polysubstance abuse and anxiety with history of multiple visit here in the emergency room came in in the emergency room due to headache patient states that the headache is throbbing in character mostly on the frontal area with sinus pain nasal congestion postnasal drip and sore throat patient denies any dizziness nausea vomiting denies any numbness weakness tingling sensation or blurring of vision patient was seen here 01/07/2025 where all the blood test was performed and everything is normal patient was also have a CT scan of the head which is also unremarkable patient was treated at that time with blood pressure patient was given medication and symptoms resolved patient states that the headache started 3 hours ago but nasal congestion and sore throat started 3 days ago Limitations: no limitations Related Data Previous Rx's ?Medication ?Instructions ?Recorded cetirizine 5 mg-pseudoephedrine ER 1 tab PO BID PRN sinus symptoms 08/30/21 120 mg tablet,extended #14 tabs release,12hr (Zyrtec-D) diphenhydramine HCl 25 mg capsule 25 mg PO Q8H PRN allergic symptoms 09/23/22 (Benadryl) #30 caps ibuprofen 600 mg tablet 600 mg PO QID PRN pain #20 tabs 09/23/22 ciprofloxacin HCl 500 mg tablet 500 mg PO BID #14 tabs 11/29/22 (Cipro) dicyclomine 20 mg tablet 20 mg PO BID #20 tabs 11/29/22 metronidazole 500 mg tablet 500 mg PO BID #14 tabs 11/29/22 cyclobenzaprine 7.5 mg tablet 7.5 mg PO TID PRN muscle spasm #30 12/03/22 tabs hydrocodone 5 mg-acetaminophen 325 1 tab PO BID PRN pain #14 tabs 01/16/23 mg tablet hydroxyzine HCl 50 mg tablet 50 mg PO Q6H PRN anxiety #20 tabs 01/18/24 amoxicillin 875 mg-potassium 1 tab PO BID #14 tabs 02/07/24 clavulanate 125 mg tablet acetaminophen 325 mg tablet 650 mg (2 x 325 mg) PO TID PRN 02/11/24 pain #30 tabs ibuprofen 600 mg tablet 600 mg PO Q8H PRN pain #30 tabs 02/11/24 ibuprofen 600 mg tablet 600 mg PO Q8H PRN pain #14 tabs 02/15/24 lidocaine 5 % topical patch 2 patch topical QDAY PRN pain #30 02/15/24 (Lidoderm) ea acetaminophen 500 mg tablet 500 mg PO Q6H PRN pain #30 tabs 09/15/24 tizanidine 4 mg tablet 4 mg PO BID PRN muscle spasticity 09/15/24 #20 tabs sumatriptan succinate 25 mg tablet 25 mg PO Q2H PRN migraine headache 10/08/24 (Imitrex) #10 tabs albuterol sulfate 90 mcg/actuation 1 inh inhalation Q4H PRN shortness 11/06/24 aerosol inhaler (Ventolin HFA) of breath or wheezing #8.5 grams hydroxyzine pamoate 25 mg capsule 25 mg PO BID PRN anxiety #10 caps 11/06/24 ibuprofen 800 mg tablet 800 mg PO Q8H PRN pain #20 tabs 12/21/24 ondansetron 4 mg disintegrating 4 mg PO Q8H PRN nausea and 12/21/24 tablet vomiting #20 tabs dicyclomine 20 mg tablet 20 mg PO QID PRN abdominal pain 12/27/24 #30 tabs cephalexin 500 mg capsule 500 mg PO QID #40 caps 12/28/24 albuterol sulfate 90 mcg/actuation 2 puff inhalation Q6H PRN 01/03/25 aerosol inhaler (Ventolin HFA) shortness of breath or wheezing #8.5 grams ondansetron 4 mg disintegrating 4 mg PO Q8H PRN nausea and 01/03/25 tablet vomiting #20 tabs amoxicillin 875 mg-potassium 1 tab PO BID #20 tabs 01/16/25 clavulanate 125 mg tablet ibuprofen 200 mg-phenylephrine HCl 1 tab PO Q4H PRN sinus symptoms 01/16/25 10 mg tablet (Sudafed PE Head #20 tabs Congestion-Pain) lidocaine HCl 2 % mucosal solution 10 ml PO Q4H PRN sore throat #100 01/16/25 (Lidocaine Viscous) mL ondansetron 4 mg disintegrating 4 mg PO Q8H PRN nausea and 01/16/25 tablet vomiting #10 tabs Allergies Allergy/AdvReac Type Severity Reaction Status Date / Time No Known Allergies Allergy Verified 01/16/25 03:05 Review of Systems Review of Systems Systems Reviewed: All systems reviewed, normal except as documented Constitutional Constitutional: Reports system reviewed and no additional complaints, except as documented, Reports as per HPI, Denies frequent falls, Reports headache(s) and Denies weakness Eyes Eyes: Denies loss of vision ENT Ears, Nose, Mouth, and Throat: Denies abnormal hearing, Denies disequilibrium, Denies dizziness, Reports headache(s) and Denies vertigo Cardiovascular Cardiovascular: Reports system reviewed and no additional complaints, except as documented, Reports as per HPI and Denies syncope Respiratory Respiratory: Reports system reviewed and no additional complaints, except as documented and Reports as per HPI Gastrointestinal Gastrointestinal: Reports system reviewed and no additional complaints, except as documented and Reports as per HPI Musculoskeletal Musculoskeletal: Reports system reviewed and no additional complaints, except as documented, Reports as per HPI, Denies abnormal gait, Denies numbness and Denies tingling Neurologic Neurologic: Reports system reviewed and no additional complaints, except as documented, Reports as per HPI, Denies abnormal gait, Denies abnormal hearing, Denies abnormal movements, Denies abnormal speech, Denies behavioral changes, Denies burning sensations, Denies confusion, Denies convulsions, Denies disequilibrium, Denies dizziness, Denies localized weakness, Denies frequent falls, Reports headache(s), Denies lack of coordination, Denies loss of vision, Denies memory loss, Denies numbness, Denies other visual disturbances, Denies paresthesias, Denies radicular pain, Denies restless legs, Denies seizure-like activity, Denies sensory deficit, Denies syncope, Denies tingling, Denies tremor(s), Denies vertigo and Denies weakness Psychiatric Psychiatric: Denies behavioral changes, Denies confusion and Denies memory loss Past Medical History Past Medical History NEUROLOGIC: Negative Neurological Disorders or Seizures CARDIAC: Negative Cardiac Disorders or Congestive Heart Failure RESPIRATORY: Negative Chronic Obstructive Pulmonary Disease (COPD) or Asthma GASTROINTESTINAL: Negative Gastrointestinal Disorders GENITOURINARY: Negative Genitourinary Disorders or Renal Disease MUSCULOSKELETAL: Negative Musculoskeletal Disorders ENDOCRINE: Negative Endocrine Disorders, Diabetes Mellitus Type 1 or Diabetes Mellitus Type 2 HEMATOLOGIC: Negative Blood Disorders or Sickle Cell Disease OTHER HISTORY: Positive Chicken Pox; Negative Hospitalization, Blood Transfusions, Blood Transfusion Reaction, Anesthesia Reactions or Cancer Social History SMOKING STATUS: Current some day smoker SUBSTANCE USE: does not use and methamphetamine ED Exam General Limitations: Present no limitations General appearance: Present alert and in no apparent distress Head Head exam: Present atraumatic and normocephalic Eye Eye exam: Present normal appearance, PERRL, EOMI and other (PERRL EOM intact normal conjunctiva no papilledema) ENT ENT exam: Present normal exam, normal oropharynx, mucous membranes moist and other (Noted mild to moderate tenderness on the frontal and maxillary sinus nostril and turbinates were swollen and red no nasal deviation no nasal polyps with nasal discharge tonsils were swollen and red but no exudate) Neck Neck exam: Present normal inspection, full ROM and trachea midline Chest Chest inspection: Present normal inspection and symmetric chest wall rise; Absent tenderness Respiratory Respiratory exam: Present normal lung sounds bilaterally; Absent respiratory distress, wheezes, stridor, accessory muscle use or prolonged expiratory phase Cardiovascular Cardiovascular exam: Present regular rate, normal rhythm and normal heart sounds; Absent bradycardia, tachycardia, irregular rhythm, systolic murmur or diastolic murmur Abdominal Exam Abdominal exam: Present soft and normal bowel sounds; Absent distention, tenderness, guarding, rebound, rigidity, diminished bowel sounds, hyperactive bowel sounds, hypoactive bowel sounds or organomegaly Extremities Exam Extremities exam: Present normal inspection and full ROM Back Exam Back exam: Present normal inspection and full ROM Neurological Exam Neurological exam: Present alert, oriented X3, CN II-XII intact, normal gait, reflexes normal and other (Awake alert oriented x 4 no focal deficit GCS 15/15 steady gait memory intact no slurring of speech no facial droop CN II to XII is normal motor or sensory reflex were all normal in all extremities negative Babinski); Absent motor sensory deficit Psychiatric Psychiatric exam: Present normal affect and normal mood Skin Skin exam: Present warm, dry, intact and normal color Course Quality Measures none Orders Category Date Time Status Amoxicillin/Pot Clav 875 [Augmentin 875] Med 01/16/25 03:15 Discontinued 1 tab PO X1 ONE HYDROcodone*/APAP 5/325 [Sebastian 5/325] Med 01/16/25 03:15 Discontinued 1 tab PO X1 ONE Ondansetron Odt [Zofran Odt] Med 01/16/25 03:15 Discontinued 4 mg PO X1 ONE Vital Signs Vital signs: Vital Signs Temperature 98.1 F 01/16/25 03:06 Pulse Rate 112 H 01/16/25 03:06 Respiratory Rate 18 01/16/25 03:06 Blood Pressure 158/111 H 01/16/25 03:06 Pulse Oximetry (%) 98 01/16/25 03:06 Oxygen Delivery Method Room Air 01/16/25 03:06 Oxygen saturation is 98% in room air Headache MDM Narrative MDM Narrative:: This is a case of 39-year-old male who have history of polysubstance abuse and anxiety with history of multiple visit here in the emergency room came in in the emergency room due to headache patient states that the headache is throbbing in character mostly on the frontal area with sinus pain nasal congestion postnasal drip and sore throat patient denies any dizziness nausea vomiting denies any numbness weakness tingling sensation or blurring of vision patient was seen here 01/07/2025 where all the blood test was performed and everything is normal patient was also have a CT scan of the head which is also unremarkable patient was treated at that time with blood pressure patient was given medication and symptoms resolved patient states that the headache started 3 hours ago but nasal congestion and sore throat started 3 days ago physical examination patient is awake alert oriented not in distress nontoxic looking well-hydrated well-nourished initial blood pressure is 158/111 I rechecked the blood pressure myself and noted to be 135/85 nontachycardic nontachypneic afebrile and nonhypoxic neurological exam is normal awake alert oriented x 4 no focal deficit GCS 15/15 steady gait memory intact no slurring of speech no facial droop CN II to XII is normal motor or sensory reflex in all extremities is negative negative Babinski patient have moderate tenderness on frontal and maxillary sinus with nasal discharge with nostrils and turbinates swollen red no septal deviation no nasal polyps patient tonsils were red and swollen but no exudate no peritonsillar abscess no drooling of saliva no muffled voice the rest of the HEENT exam is normal and unremarkable lungs sound is clear no crackles no rales no retraction no stridor heart normal rate regular rhythm no murmur based on my physical examination and history patient headache is sinus headache patient was given Sebastian which patient condition markedly improved patient was also started with Augmentin for sinusitis and tonsillitis patient condition markedly improved and resolved patient will be discharged home in stable condition she was advised to follow-up with PCP in 2 days for evaluation and to be referred to neurologist if headache persist he was also advised to continue to monitor his blood pressure as discussed by the previous provider recurrence persistent worsening symptoms or any emergent concern return precaution in the ER is advised Patient was discharged with comfortable condition walking with stable gait. Patient verbalized no further complains explained diagnosis and answered patient question. Patient is comfortable with the proposed management plan including the need to follow up with his/her primary care physician and any specialist if applicable Discussed patient for any urgent condition or worsening sx, He/She needed to go to emergency room immediately or call 911. Patient acknowledge the responsibility to follow up as instructed and to monitor her/his symptoms. For any persistence of the symptoms for more than 3-5 days return precaution advised. Discussed the result of the test and was given printed discharge instruction Patient data External records reviewed:: [facility] previous records Clinical information provided by:: patient Social determinants that could affect healthcare access:: none Patient has the following chronic illnesses:: None How is presenting disease/condition affected by chronic disease/condition?: no chronic disease Evaluation data The following diagnostics were reviewed and interpreted by me:: other (specify) (None) Lab and/or radiology exams considered but not ordered:: None Interpretation Summary: None Medications / Prescriptions Medications or Prescriptions considered but not ordered:: Given Medication administrations:: Medication Administration History Discontinued Medications Hydrocodone Bitart/Acetaminophen (Hydrocodone/Apap 5/325 Tablet) 1 tab PO X1 ONE Stop: 01/16/25 03:16 Amoxicillin/Clavulanate Potassium (Amoxicillin/Pot Clav 875 Tablet) 1 tab PO X1 ONE Stop: 01/16/25 03:16 Ondansetron HCl (Ondansetron Odt 4 Mg Tabrap) 4 mg PO X1 ONE; Protocol Stop: 01/16/25 03:16 Given Consultations Consultation(s) initiated? (list below): No Diagnosis Differential diagnosis headache: migraine, tension headache, headache and sinusitis Most likely diagnosis given after review of the tests above:: Headache sinus headache Admission Indicated Admission indicated?: not indicated Explain why admission is indicated or not indicated:: Not indicated Admission Request Was there a request for admission?: No Admission Attestation Admission request attestation: Not indicated Disposition Plan Disposition Plan: Discharge Discharge Attestation Discharge Attestation: The patient and all family members were given an opportunity to ask questions and understood the discharge instructions. Discharge instructions specifically effects, indications for sooner follow up or return to the emergency department, and the expected course of current diagnosis. Patient condition: Stable Discharge Plan Plan Patient Disposition: HOME (Self Care) Patient condition on transfer: Stable Prescriptions/Referrals Prescriptions/Med Rec: New amoxicillin-pot clavulanate 875-125 mg tablet 1 tab PO BID Qty: 20 0RF lidocaine HCl [Lidocaine Viscous] 2 % solution 10 ml PO Q4H PRN (Reason: sore throat) Qty: 100 0RF ondansetron 4 mg tablet,disintegrating 4 mg PO Q8H PRN (Reason: nausea and vomiting) Qty: 10 0RF Sudafed PE Head Congestn-Pain 200-10 mg tablet 1 tab PO Q4H PRN (Reason: sinus symptoms) Qty: 20 0RF No Action cetirizine-pseudoephedrine [Zyrtec-D] 5-120 mg tablet extended release 12 hr 1 tab PO BID PRN (Reason: sinus symptoms) Qty: 14 0RF diphenhydramine HCl [Benadryl] 25 mg capsule 25 mg PO Q8H PRN (Reason: allergic symptoms) Qty: 30 0RF ibuprofen 600 mg tablet 600 mg PO QID PRN (Reason: pain) Qty: 20 0RF ciprofloxacin HCl [Cipro] 500 mg tablet 500 mg PO BID Qty: 14 0RF metronidazole 500 mg tablet 500 mg PO BID Qty: 14 0RF dicyclomine 20 mg tablet 20 mg PO BID Qty: 20 0RF hydroxyzine HCl 50 mg tablet 50 mg PO Q6H PRN (Reason: anxiety) Qty: 20 0RF amoxicillin-pot clavulanate 875-125 mg tablet 1 tab PO BID Qty: 14 0RF ibuprofen 600 mg tablet 600 mg PO Q8H PRN (Reason: pain) Qty: 30 0RF acetaminophen 325 mg tablet 650 mg PO TID PRN (Reason: pain) Qty: 30 0RF lidocaine [Lidoderm] 5 % adhesive patch,medicated 2 patch topical QDAY PRN (Reason: pain) Qty: 30 0RF Rx Instructions: leave on most painful area for up to 12 hrs ibuprofen 600 mg tablet 600 mg PO Q8H PRN (Reason: pain) Qty: 14 0RF tizanidine 4 mg tablet 4 mg PO BID PRN (Reason: muscle spasticity) Qty: 20 0RF acetaminophen 500 mg tablet 500 mg PO Q6H PRN (Reason: pain) Qty: 30 0RF hydroxyzine pamoate 25 mg capsule 25 mg PO BID PRN (Reason: anxiety) Qty: 10 0RF albuterol sulfate [Ventolin HFA] 90 mcg/actuation HFA aerosol inhaler 1 inh inhalation Q4H PRN (Reason: shortness of breath or wheezing) Qty: 8.5 0RF cyclobenzaprine 7.5 mg tablet 7.5 mg PO TID PRN (Reason: muscle spasm) Qty: 30 0RF hydrocodone-acetaminophen 5-325 mg tablet 1 tab PO BID MDD 10 PRN (Reason: pain) Qty: 14 0RF sumatriptan succinate [Imitrex] 25 mg tablet 25 mg PO Q2H PRN (Reason: migraine headache) Qty: 10 0RF Rx Instructions: do not exceed 8 doses per 24 hrs ondansetron 4 mg tablet,disintegrating 4 mg PO Q8H PRN (Reason: nausea and vomiting) Qty: 20 0RF ibuprofen 800 mg tablet 800 mg PO Q8H PRN (Reason: pain) Qty: 20 0RF dicyclomine 20 mg tablet 20 mg PO QID PRN (Reason: abdominal pain) Qty: 30 0RF cephalexin 500 mg capsule 500 mg PO QID Qty: 40 0RF ondansetron 4 mg tablet,disintegrating 4 mg PO Q8H PRN (Reason: nausea and vomiting) Qty: 20 0RF albuterol sulfate [Ventolin HFA] 90 mcg/actuation HFA aerosol inhaler 2 puff inhalation Q6H PRN (Reason: shortness of breath or wheezing) Qty: 8.5 0RF Problem List Clinical Impression: Headache, Sinusitis, Acute tonsillitis Patient/Caregiver Discharge Instructions Education Materials: Tonsillitis in Adults, Self-Care for Headaches, ED Sinusitis (Antibiotic Treatment) Additional Instructions: Up with your primary care physician in 2 days for reevaluation and to be referred to neurologist if the headache persist or recur or recurrence persistent worsening symptoms or any emergent concern call 911 or go to the nearest emergency room take your medication as directed finish the course of antibiotic steam inhalation and warm saline gargles advised keep hydrated Print Language: [place] Stand Alone Forms: Selin Award Info., Patient Portal Info Letter PA/KENNEL AIDE Supervising Physician PA/KENNEL AIDE Supervising Physician: Dr. Francisco Burgos
[2025-01-16] MEDS: HYDROcodone/APAP 5/325 TABLET 1 TAB PO (03:54)
[2025-01-16] MEDS: ONDANSETRON ODT 4 MG TABRAP PO (03:54)
[2025-01-16] MEDS: AMOXICILLIN/POT CLAV 875 TABLET 1 TAB PO (03:55)
[2025-01-16 04:05] VITALS: BP 143/103; PULSE 100; RESP 19; TEMP 36.7; O2SAT 100
[2025-01-16 04:10] VITALS: BP 143/103; PULSE 100; RESP 19; TEMP 36.7; O2SAT 100
== END 2025-01-16 04:10 | disposition home or self-care (01) ==
LOC: SERX 03:51
PROVIDERS: Emergency Provider Emergency Medicine
DX: J03.90 Acute tonsillitis, unspecified (principal); J01.90 Acute sinusitis, unspecified
CPT/HCPCS: 99283; Q0162; A9270

== ENCOUNTER 2025-01-17 01:58 | Emergency (ER) | payer MEDICAID, SELFPAY ==
[2025-01-17 01:59] VITALS: PULSE 88; RESP 18; O2SAT 97
[2025-01-17 02:30] VITALS: BP 127/88; BP 149/95; PULSE 103; RESP 18; TEMP 36.7; O2SAT 97; BMI 21.1
--- NOTE | 2025-01-17 03:13 | PD.EDHA ---
ED Headache RME/HPI General Chief Complaint: Headache Stated Complaint: HEADACHE Source: patient Arrival date/time: 01/17/25 01:58 This is a case of 39-year-old male with history of polysubstance abuse and anxiety came in in the emergency room due to frontal headache sinus pain nasal congestion no blurring of vision denies any dizziness nausea vomiting denies numbness weakness tingling sensation patient was here yesterday seen by me and was treated for sinus headache and sinusitis patient was here also few days ago where CT scan and blood test was performed and everything were normal patient had multiple visit here in the emergency room Limitations: no limitations Related Data Previous Rx's ?Medication ?Instructions ?Recorded cetirizine 5 mg-pseudoephedrine ER 1 tab PO BID PRN sinus symptoms 08/30/21 120 mg tablet,extended #14 tabs release,12hr (Zyrtec-D) diphenhydramine HCl 25 mg capsule 25 mg PO Q8H PRN allergic symptoms 09/23/22 (Benadryl) #30 caps ibuprofen 600 mg tablet 600 mg PO QID PRN pain #20 tabs 09/23/22 ciprofloxacin HCl 500 mg tablet 500 mg PO BID #14 tabs 11/29/22 (Cipro) dicyclomine 20 mg tablet 20 mg PO BID #20 tabs 11/29/22 metronidazole 500 mg tablet 500 mg PO BID #14 tabs 11/29/22 cyclobenzaprine 7.5 mg tablet 7.5 mg PO TID PRN muscle spasm #30 12/03/22 tabs hydrocodone 5 mg-acetaminophen 325 1 tab PO BID PRN pain #14 tabs 01/16/23 mg tablet hydroxyzine HCl 50 mg tablet 50 mg PO Q6H PRN anxiety #20 tabs 01/18/24 amoxicillin 875 mg-potassium 1 tab PO BID #14 tabs 02/07/24 clavulanate 125 mg tablet acetaminophen 325 mg tablet 650 mg (2 x 325 mg) PO TID PRN 02/11/24 pain #30 tabs ibuprofen 600 mg tablet 600 mg PO Q8H PRN pain #30 tabs 02/11/24 ibuprofen 600 mg tablet 600 mg PO Q8H PRN pain #14 tabs 02/15/24 lidocaine 5 % topical patch 2 patch topical QDAY PRN pain #30 02/15/24 (Lidoderm) ea acetaminophen 500 mg tablet 500 mg PO Q6H PRN pain #30 tabs 09/15/24 tizanidine 4 mg tablet 4 mg PO BID PRN muscle spasticity 09/15/24 #20 tabs sumatriptan succinate 25 mg tablet 25 mg PO Q2H PRN migraine headache 10/08/24 (Imitrex) #10 tabs albuterol sulfate 90 mcg/actuation 1 inh inhalation Q4H PRN shortness 11/06/24 aerosol inhaler (Ventolin HFA) of breath or wheezing #8.5 grams hydroxyzine pamoate 25 mg capsule 25 mg PO BID PRN anxiety #10 caps 11/06/24 ibuprofen 800 mg tablet 800 mg PO Q8H PRN pain #20 tabs 12/21/24 ondansetron 4 mg disintegrating 4 mg PO Q8H PRN nausea and 12/21/24 tablet vomiting #20 tabs dicyclomine 20 mg tablet 20 mg PO QID PRN abdominal pain 12/27/24 #30 tabs cephalexin 500 mg capsule 500 mg PO QID #40 caps 12/28/24 albuterol sulfate 90 mcg/actuation 2 puff inhalation Q6H PRN 01/03/25 aerosol inhaler (Ventolin HFA) shortness of breath or wheezing #8.5 grams ondansetron 4 mg disintegrating 4 mg PO Q8H PRN nausea and 01/03/25 tablet vomiting #20 tabs amoxicillin 875 mg-potassium 1 tab PO BID #20 tabs 01/16/25 clavulanate 125 mg tablet ibuprofen 200 mg-phenylephrine HCl 1 tab PO Q4H PRN sinus symptoms 01/16/25 10 mg tablet (Sudafed PE Head #20 tabs Congestion-Pain) lidocaine HCl 2 % mucosal solution 10 ml PO Q4H PRN sore throat #100 01/16/25 (Lidocaine Viscous) mL ondansetron 4 mg disintegrating 4 mg PO Q8H PRN nausea and 01/16/25 tablet vomiting #10 tabs Allergies Allergy/AdvReac Type Severity Reaction Status Date / Time No Known Allergies Allergy Verified 01/17/25 02:04 Review of Systems Review of Systems Systems Reviewed: All systems reviewed, normal except as documented Constitutional Constitutional: Reports system reviewed and no additional complaints, except as documented and Reports as per HPI Eyes Eyes: Reports system reviewed and no additional complaints, except as documented and Reports as per HPI ENT Ears, Nose, Mouth, and Throat: Reports system reviewed and no additional complaints, except as documented and Reports as per HPI Cardiovascular Cardiovascular: Reports system reviewed and no additional complaints, except as documented and Reports as per HPI Respiratory Respiratory: Reports system reviewed and no additional complaints, except as documented and Reports as per HPI Gastrointestinal Gastrointestinal: Reports system reviewed and no additional complaints, except as documented and Reports as per HPI Neurologic Neurologic: Reports system reviewed and no additional complaints, except as documented and Reports as per HPI Past Medical History Past Medical History NEUROLOGIC: Negative Neurological Disorders or Seizures CARDIAC: Negative Cardiac Disorders or Congestive Heart Failure RESPIRATORY: Negative Chronic Obstructive Pulmonary Disease (COPD) or Asthma GASTROINTESTINAL: Negative Gastrointestinal Disorders GENITOURINARY: Negative Genitourinary Disorders or Renal Disease MUSCULOSKELETAL: Negative Musculoskeletal Disorders ENDOCRINE: Negative Endocrine Disorders, Diabetes Mellitus Type 1 or Diabetes Mellitus Type 2 HEMATOLOGIC: Negative Blood Disorders or Sickle Cell Disease OTHER HISTORY: Positive Chicken Pox; Negative Hospitalization, Blood Transfusions, Blood Transfusion Reaction, Anesthesia Reactions or Cancer Social History SMOKING STATUS: Current every day smoker SUBSTANCE USE: does not use and methamphetamine ED Exam General Limitations: Present no limitations General appearance: Present alert, in no apparent distress and other (Patient is awake alert oriented not in distress nontoxic looking well-hydrated well-nourished) Head Head exam: Present atraumatic, normocephalic and normal inspection Eye Eye exam: Present normal appearance, PERRL, EOMI and other (PERRL EOM intact normal conjunctiva no papilledema) ENT ENT exam: Present normal exam, normal oropharynx, mucous membranes moist and other (Noted frontal and maxillary sinus tenderness no polyps no septal deviation nostrils and turbinates were red and swollen the rest of the HEENT exam is normal and unremarkable) Neck Neck exam: Present normal inspection, full ROM, trachea midline and other (Negative for meningeal sign); Absent tenderness, meningismus, lymphadenopathy or thyromegaly Chest Chest inspection: Present normal inspection and symmetric chest wall rise; Absent tenderness Respiratory Respiratory exam: Present normal lung sounds bilaterally; Absent respiratory distress, wheezes, stridor, accessory muscle use or prolonged expiratory phase Cardiovascular Cardiovascular exam: Present regular rate, normal rhythm and normal heart sounds; Absent bradycardia, tachycardia, irregular rhythm, systolic murmur or diastolic murmur Abdominal Exam Abdominal exam: Present soft and normal bowel sounds; Absent distention, tenderness, guarding, rebound, rigidity, diminished bowel sounds, hyperactive bowel sounds, hypoactive bowel sounds or organomegaly Extremities Exam Extremities exam: Present normal inspection and full ROM Back Exam Back exam: Present normal inspection and full ROM Neurological Exam Neurological exam: Present alert, oriented X3, CN II-XII intact, normal gait, reflexes normal and other (Patient is awake alert oriented x 4 no focal deficit GCS 15/15 steady gait memory intact no slurring speech no facial droop motor or sensory reflex were all normal negative); Absent motor sensory deficit Psychiatric Psychiatric exam: Present normal affect and normal mood Skin Skin exam: Present warm, dry, intact, normal color and other (Excellent skin turgor) Course Quality Measures none Orders Category Date Time Status HYDROcodone*/APAP 5/325 [[place] 5/325] Med 01/17/25 03:10 Discontinued 1 tab PO X1 ONE Ondansetron Odt [Zofran Odt] Med 01/17/25 03:10 Discontinued 4 mg PO X1 ONE Vital Signs Vital signs: Vital Signs Temperature 98.1 F 01/17/25 02:30 Pulse Rate 103 H 01/17/25 02:30 Respiratory Rate 18 01/17/25 02:30 Blood Pressure 127/88 H 01/17/25 02:30 Pulse Oximetry (%) 97 01/17/25 02:30 Oxygen Delivery Method Room Air 01/17/25 02:30 Oxygen saturation is 97% in room air Headache MDM Narrative MDM Narrative:: This is a case of 39-year-old male with history of polysubstance abuse and anxiety came in in the emergency room due to frontal headache sinus pain nasal congestion no blurring of vision denies any dizziness nausea vomiting denies numbness weakness tingling sensation patient was here yesterday seen by me and was treated for sinus headache and sinusitis patient was here also few days ago where CT scan and blood test was performed and everything were normal patient had multiple visit here in the emergency room physical examination patient is awake alert oriented not in distress nontoxic looking vital signs stable BP stable not tachycardic not tachypneic not hypoxic and afebrile patient lungs sound is clear no crackles no rales no retraction no stridor heart normal rate regular rhythm no murmur HEENT examination noted positive frontal sinus and maxillary sinus tenderness with nasal discharge with nostril turbinates swollen and red no nasal polyps no septal deviation neurological exam is normal awake alert oriented x 4 no focal deficit memory intact no slurring of speech no facial droop CN II to XII is normal motor or sensory reflex are all normal in all extremities negative Babinski at this point I will not do any blood test or CT scan since it was done already few days ago and neurological exam is normal and unremarkable after giving [place] and Zofran patient condition markedly improved patient will continue the antibiotic at home patient will follow-up with PCP in 2 days for reevaluation and to be referred to neurologist for headache for any recurrence persistent worsening symptoms or any emergent concern call 911 or go to the nearest emergency room no signs and symptoms of TIA or CVA no signs and symptoms of meningitis negative for meningeal sign Patient was discharged with comfortable condition walking with stable gait. Patient verbalized no further complains explained diagnosis and answered patient question. Patient is comfortable with the proposed management plan including the need to follow up with his/her primary care physician and any specialist if applicable Discussed patient for any urgent condition or worsening sx, He/She needed to go to emergency room immediately or call 911. Patient acknowledge the responsibility to follow up as instructed and to monitor her/his symptoms. For any persistence of the symptoms for more than 3-5 days return precaution advised. Discussed the result of the test and was given printed discharge instruction Patient data External records reviewed:: [facility] previous records Clinical information provided by:: patient Social determinants that could affect healthcare access:: none Patient has the following chronic illnesses:: None How is presenting disease/condition affected by chronic disease/condition?: no chronic disease Evaluation data The following diagnostics were reviewed and interpreted by me:: other (specify) (None) Lab and/or radiology exams considered but not ordered:: None Interpretation Summary: None Medications / Prescriptions Medications or Prescriptions considered but not ordered:: Given Medication administrations:: Medication Administration History Discontinued Medications Hydrocodone Bitart/Acetaminophen (Hydrocodone/Apap 5/325 Tablet) 1 tab PO X1 ONE Stop: 01/17/25 03:11 Ondansetron HCl (Ondansetron Odt 4 Mg Tabrap) 4 mg PO X1 ONE; Protocol Stop: 01/17/25 03:11 Given Consultations Consultation(s) initiated? (list below): No Diagnosis Differential diagnosis headache: migraine, headache and sinusitis Most likely diagnosis given after review of the tests above:: Sinus headache sinusitis Admission Indicated Admission indicated?: not indicated Explain why admission is indicated or not indicated:: Not indicated Admission Request Was there a request for admission?: No Admission Attestation Admission request attestation: Not indicated Disposition Plan Disposition Plan: Discharge Discharge Attestation Discharge Attestation: The patient and all family members were given an opportunity to ask questions and understood the discharge instructions. Discharge instructions specifically effects, indications for sooner follow up or return to the emergency department, and the expected course of current diagnosis. Patient condition: Stable Discharge Plan Plan Patient Disposition: HOME (Self Care) Patient condition on transfer: Stable Prescriptions/Referrals Prescriptions/Med Rec: No Action cetirizine-pseudoephedrine [Zyrtec-D] 5-120 mg tablet extended release 12 hr 1 tab PO BID PRN (Reason: sinus symptoms) Qty: 14 0RF diphenhydramine HCl [Benadryl] 25 mg capsule 25 mg PO Q8H PRN (Reason: allergic symptoms) Qty: 30 0RF ibuprofen 600 mg tablet 600 mg PO QID PRN (Reason: pain) Qty: 20 0RF ciprofloxacin HCl [Cipro] 500 mg tablet 500 mg PO BID Qty: 14 0RF metronidazole 500 mg tablet 500 mg PO BID Qty: 14 0RF dicyclomine 20 mg tablet 20 mg PO BID Qty: 20 0RF hydroxyzine HCl 50 mg tablet 50 mg PO Q6H PRN (Reason: anxiety) Qty: 20 0RF amoxicillin-pot clavulanate 875-125 mg tablet 1 tab PO BID Qty: 14 0RF ibuprofen 600 mg tablet 600 mg PO Q8H PRN (Reason: pain) Qty: 30 0RF acetaminophen 325 mg tablet 650 mg PO TID PRN (Reason: pain) Qty: 30 0RF lidocaine [Lidoderm] 5 % adhesive patch,medicated 2 patch topical QDAY PRN (Reason: pain) Qty: 30 0RF Rx Instructions: leave on most painful area for up to 12 hrs ibuprofen 600 mg tablet 600 mg PO Q8H PRN (Reason: pain) Qty: 14 0RF tizanidine 4 mg tablet 4 mg PO BID PRN (Reason: muscle spasticity) Qty: 20 0RF acetaminophen 500 mg tablet 500 mg PO Q6H PRN (Reason: pain) Qty: 30 0RF hydroxyzine pamoate 25 mg capsule 25 mg PO BID PRN (Reason: anxiety) Qty: 10 0RF albuterol sulfate [Ventolin HFA] 90 mcg/actuation HFA aerosol inhaler 1 inh inhalation Q4H PRN (Reason: shortness of breath or wheezing) Qty: 8.5 0RF amoxicillin-pot clavulanate 875-125 mg tablet 1 tab PO BID Qty: 20 0RF lidocaine HCl [Lidocaine Viscous] 2 % solution 10 ml PO Q4H PRN (Reason: sore throat) Qty: 100 0RF ondansetron 4 mg tablet,disintegrating 4 mg PO Q8H PRN (Reason: nausea and vomiting) Qty: 10 0RF Sudafed PE Head Congestn-Pain 200-10 mg tablet 1 tab PO Q4H PRN (Reason: sinus symptoms) Qty: 20 0RF cyclobenzaprine 7.5 mg tablet 7.5 mg PO TID PRN (Reason: muscle spasm) Qty: 30 0RF hydrocodone-acetaminophen 5-325 mg tablet 1 tab PO BID MDD 10 PRN (Reason: pain) Qty: 14 0RF sumatriptan succinate [Imitrex] 25 mg tablet 25 mg PO Q2H PRN (Reason: migraine headache) Qty: 10 0RF Rx Instructions: do not exceed 8 doses per 24 hrs ondansetron 4 mg tablet,disintegrating 4 mg PO Q8H PRN (Reason: nausea and vomiting) Qty: 20 0RF ibuprofen 800 mg tablet 800 mg PO Q8H PRN (Reason: pain) Qty: 20 0RF dicyclomine 20 mg tablet 20 mg PO QID PRN (Reason: abdominal pain) Qty: 30 0RF cephalexin 500 mg capsule 500 mg PO QID Qty: 40 0RF ondansetron 4 mg tablet,disintegrating 4 mg PO Q8H PRN (Reason: nausea and vomiting) Qty: 20 0RF albuterol sulfate [Ventolin HFA] 90 mcg/actuation HFA aerosol inhaler 2 puff inhalation Q6H PRN (Reason: shortness of breath or wheezing) Qty: 8.5 0RF Referrals: No Primary/Family,Physician [Primary Care Provider] - In 1 week Problem List Clinical Impression: Headache, Sinusitis Patient/Caregiver Discharge Instructions Education Materials: Self-Care for Headaches, Self-Care for Sinusitis Additional Instructions: Follow-up with your primary care physician in 2 days for reevaluation worsening symptoms or any emergent concern call 911 or go to the nearest emergency room take your medication as directed finish the course of antibiotic steam inhalation is advised keep hydrated follow-up with your PCP to be referred to neurologist for your headache Print Language: Vietnamese Stand Alone Forms: Selin Award Info., Patient Portal Info Letter NATHANAEL/CESAR Supervising Physician NATHANAEL/CESAR Supervising Physician: Dr. Angel
[2025-01-17] MEDS: ACETAMINOPHEN 500 MG TABLET 1000 MG PO (04:11)
[2025-01-17] MEDS: ONDANSETRON ODT 4 MG TABRAP PO (04:12)
[2025-01-17 04:14] VITALS: BP 148/89; PULSE 87; RESP 18; TEMP 36.7; O2SAT 97
== END 2025-01-17 04:16 | disposition home or self-care (01) ==
PROVIDERS: Emergency Provider Emergency Medicine
DX: J32.9 Chronic sinusitis, unspecified (principal); F17.210 Nicotine dependence, cigarettes, uncomplicated
CPT/HCPCS: 99283; Q0162; A9270

== ENCOUNTER 2025-01-17 23:47 | Emergency (ER) | payer MEDICAID, SELFPAY ==
[2025-01-17 23:47] VITALS: PULSE 91; RESP 16; O2SAT 96; BMI 21.1
[2025-01-18 00:02] VITALS: BP 154/91; PULSE 99; RESP 18; TEMP 37; O2SAT 97
--- NOTE | 2025-01-18 00:31 | XR_ITS ---
Examination: CT brain head without contrast. 2-D sagittal coronal reconstructions Date and time of exam:January 18, 2025 0215 hrs., Comparison 01/07/2025 Indications: Headaches dizziness nausea vomiting beginning 2 days ago CTDI: vol (mGy):45.4 DLP: (mGycm):886 Technique: Multiple CT axial sections of the brain have been obtained, 5 mm slice thickness. Contrast has not been administered. 2-D sagittal, coronal reconstructions have been obtained Low dose protocols were performed. One or more of the following dose reduction techniques were used; automated exposure control, adjustment of the mA and/or KV according to patient size, use of iterative reconstruction technique. Findings: No significant ventricular enlargement. Intra-axial or extra-axial hemorrhage density is not seen. No mass effect or midline shift Basal cisterns are not remarkable. Fourth ventricle is midline. Cranial vault intact. Impression: Negative for acute hemorrhage, mass effect or midline shift Advise clinical correlation follow-up accordingly
--- NOTE | 2025-01-18 00:40 | PD.EDHA ---
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 Denies fever, nausea vomiting, numbness, tingling, weakness. Related Data Previous Rx's ?Medication ?Instructions ?Recorded cetirizine 5 mg-pseudoephedrine ER 1 tab PO BID PRN sinus symptoms 08/30/21 120 mg tablet,extended #14 tabs release,12hr (Zyrtec-D) diphenhydramine HCl 25 mg capsule 25 mg PO Q8H PRN allergic symptoms 09/23/22 (Benadryl) #30 caps ibuprofen 600 mg tablet 600 mg PO QID PRN pain #20 tabs 09/23/22 ciprofloxacin HCl 500 mg tablet 500 mg PO BID #14 tabs 11/29/22 (Cipro) dicyclomine 20 mg tablet 20 mg PO BID #20 tabs 11/29/22 metronidazole 500 mg tablet 500 mg PO BID #14 tabs 11/29/22 cyclobenzaprine 7.5 mg tablet 7.5 mg PO TID PRN muscle spasm #30 12/03/22 tabs hydrocodone 5 mg-acetaminophen 325 1 tab PO BID PRN pain #14 tabs 01/16/23 mg tablet hydroxyzine HCl 50 mg tablet 50 mg PO Q6H PRN anxiety #20 tabs 01/18/24 amoxicillin 875 mg-potassium 1 tab PO BID #14 tabs 02/07/24 clavulanate 125 mg tablet acetaminophen 325 mg tablet 650 mg (2 x 325 mg) PO TID PRN 02/11/24 pain #30 tabs ibuprofen 600 mg tablet 600 mg PO Q8H PRN pain #30 tabs 02/11/24 ibuprofen 600 mg tablet 600 mg PO Q8H PRN pain #14 tabs 02/15/24 lidocaine 5 % topical patch 2 patch topical QDAY PRN pain #30 02/15/24 (Lidoderm) ea acetaminophen 500 mg tablet 500 mg PO Q6H PRN pain #30 tabs 09/15/24 tizanidine 4 mg tablet 4 mg PO BID PRN muscle spasticity 09/15/24 #20 tabs sumatriptan succinate 25 mg tablet 25 mg PO Q2H PRN migraine headache 10/08/24 (Imitrex) #10 tabs albuterol sulfate 90 mcg/actuation 1 inh inhalation Q4H PRN shortness 11/06/24 aerosol inhaler (Ventolin HFA) of breath or wheezing #8.5 grams hydroxyzine pamoate 25 mg capsule 25 mg PO BID PRN anxiety #10 caps 11/06/24 ibuprofen 800 mg tablet 800 mg PO Q8H PRN pain #20 tabs 12/21/24 ondansetron 4 mg disintegrating 4 mg PO Q8H PRN nausea and 12/21/24 tablet vomiting #20 tabs dicyclomine 20 mg tablet 20 mg PO QID PRN abdominal pain 12/27/24 #30 tabs cephalexin 500 mg capsule 500 mg PO QID #40 caps 12/28/24 albuterol sulfate 90 mcg/actuation 2 puff inhalation Q6H PRN 01/03/25 aerosol inhaler (Ventolin HFA) shortness of breath or wheezing #8.5 grams ondansetron 4 mg disintegrating 4 mg PO Q8H PRN nausea and 01/03/25 tablet vomiting #20 tabs amoxicillin 875 mg-potassium 1 tab PO BID #20 tabs 01/16/25 clavulanate 125 mg tablet ibuprofen 200 mg-phenylephrine HCl 1 tab PO Q4H PRN sinus symptoms 01/16/25 10 mg tablet (Sudafed PE Head #20 tabs Congestion-Pain) lidocaine HCl 2 % mucosal solution 10 ml PO Q4H PRN sore throat #100 01/16/25 (Lidocaine Viscous) mL ondansetron 4 mg disintegrating 4 mg PO Q8H PRN nausea and 01/16/25 tablet vomiting #10 tabs cephalexin 500 mg capsule 500 mg PO QID #28 caps 01/18/25 triamcinolone acetonide 0.025 % 1 applic topical BID #15 grams 01/18/25 topical ointment Allergies Allergy/AdvReac Type Severity Reaction Status Date / Time No Known Allergies Allergy Verified 01/17/25 23:49 Review of Systems Review of Systems Systems Reviewed: All systems reviewed, normal except as documented ED Exam Narrative Physical exam: Constitutional: Patient alert and oriented. Well appearing. No acute distress. Not toxic appearing. Head: Normocephalic, atraumatic. Eyes: Periorbital regions bilaterally normal to inspection. Conjunctiva clear bilaterally. Sclera anicteric bilaterally. Pupils equal, round, reactive to light bilaterally. Extraocular movements intact bilaterally. Mouth/Throat: Mucous membranes moist. No stridor or muffled voice. Handling secretions without difficulty. Neck: Supple. Trachea midline. No JVD. No nuchal rigidity. Normal range of motion. Respiratory: Normal effort. No accessory muscle use or respiratory distress. Lungs clear to auscultation bilaterally without rhonchi, wheezes, or crackles. Cardiovascular: RRR. Normal S1/S2. No murmurs or rubs. Radial pulses intact bilaterally. Back: No midline tenderness or step-offs. No CVA tenderness to palpation bilaterally. Upper Extremities: No gross deformities. Lower Extremities: No gross deformities. Neuro: Speech normal. No gross motor or sensory deficits to upper or lower extremities bilaterally. GCS 15. CN II?XII grossly intact. Cerebellar: [id number] testing normal. Rapid alternating movements intact. Normal gait observed. Romberg negative. Skin: Warm, dry, normal color. Positive tender papules which are erythematous in nature noted to his forearms bilaterally as well as some linear abrasions. No de la rosa papito lines appreciated. Patient also with erythematous and tender papules noted to his scalp. Psych: Normal affect. Cooperative. Normal insight. Course Quality Measures none Orders Category Date Time Status CT head/brain wo con Stat Exams 01/18/25 00:31 Taken Ketorolac Inj [Toradol Inj] Med 01/18/25 00:40 Discontinued 30 mg IM X1 ONE Vital Signs Vital signs: Vital Signs Temperature 98.6 F 01/18/25 00:02 Pulse Rate 99 01/18/25 00:02 Respiratory Rate 18 01/18/25 00:02 Blood Pressure 154/91 H 01/18/25 00:02 Pulse Oximetry (%) 97 01/18/25 00:02 Oxygen Delivery Method Room Air 01/18/25 00:02 Headache MDM Narrative MDM Narrative:: This patient's evaluation indicates the cause of the headache is very likely benign. The most serious possible causes of headache, including hemorrhage and infection, have been excluded based upon today's assessment. Patient's headache is reproducible with tenderness to palpation of the scalp therefore I do suspect that this is likely tension headache. CT imaging will be performed I anticipate it will reveal no acute findings at this time. Patient has nonetheless been warned to return immediately for worsening symptoms, change in pattern of current symptoms, or other acute problems. Additional concern for insect bites to patient's scalp and forearms. Patient states that they are tender and not itchy. I considered scabies given I noticed some linear abrasions however given lack of papito lines or interdigital papules along with patient's history of having frequent scratches to his forearms this is less likely the etiology of his insect bites, I offered him permethrin however he declined. I additionally considered kerion's however these are not boggy scaly lesions. I cannot exclude early cellulitis, I will provide him with triamcinolone steroid cream and Keflex. Patient is a good outpatient candidate for outpatient therapy and close follow-up in 2 days Pt subsequently eloped prior to ED dispo, I attempted to view CT scan however no images are in our system at this time Patient data External records reviewed:: [facility] previous records and None Clinical information provided by:: patient Social determinants that could affect healthcare access:: housing Patient has the following chronic illnesses:: methamphetamine abuse How is presenting disease/condition affected by chronic disease/condition?: exacerbated by Evaluation data The following diagnostics were reviewed and interpreted by me:: radiology exam(s) Lab and/or radiology exams considered but not ordered:: Labs and radiology considered, but not ordered as they were not clinically indicated at this time. Interpretation Summary: As noted Medications / Prescriptions Medications or Prescriptions considered but not ordered:: I considered prescription management (both outpatient prescriptions AND drug treatment in the ER) and decided that this was necessary and was prescribed as charted. Medication administrations:: Medication Administration History Discontinued Medications Ketorolac Tromethamine (Ketorolac Inj 30 Mg/Ml Vial) 30 mg IM X1 ONE Stop: 01/18/25 00:41 Last Admin: 01/18/25 02:00 Dose: Not Given Documented By: SHIRAZ Non-Admin Reason: Patient Refused As noted Consultations Consultation(s) initiated? (list below): No Diagnosis Differential diagnosis headache: migraine, tension headache and headache Most likely diagnosis given after review of the tests above:: Tension headache Admission Indicated Admission indicated?: not indicated Admission Request Was there a request for admission?: No Disposition Plan Disposition Plan: Discharge Discharge Attestation Discharge Attestation: The patient and all family members were given an opportunity to ask questions and understood the discharge instructions. Discharge instructions specifically effects, indications for sooner follow up or return to the emergency department, and the expected course of current diagnosis. Patient condition: Stable Discharge Plan Plan Patient Disposition: Elopement Prescriptions/Referrals Prescriptions/Med Rec: New triamcinolone acetonide 0.025 % ointment 1 applic topical BID Qty: 15 0RF cephalexin 500 mg capsule 500 mg PO QID Qty: 28 0RF No Action cetirizine-pseudoephedrine [Zyrtec-D] 5-120 mg tablet extended release 12 hr 1 tab PO BID PRN (Reason: sinus symptoms) Qty: 14 0RF diphenhydramine HCl [Benadryl] 25 mg capsule 25 mg PO Q8H PRN (Reason: allergic symptoms) Qty: 30 0RF ibuprofen 600 mg tablet 600 mg PO QID PRN (Reason: pain) Qty: 20 0RF ciprofloxacin HCl [Cipro] 500 mg tablet 500 mg PO BID Qty: 14 0RF metronidazole 500 mg tablet 500 mg PO BID Qty: 14 0RF dicyclomine 20 mg tablet 20 mg PO BID Qty: 20 0RF hydroxyzine HCl 50 mg tablet 50 mg PO Q6H PRN (Reason: anxiety) Qty: 20 0RF amoxicillin-pot clavulanate 875-125 mg tablet 1 tab PO BID Qty: 14 0RF ibuprofen 600 mg tablet 600 mg PO Q8H PRN (Reason: pain) Qty: 30 0RF acetaminophen 325 mg tablet 650 mg PO TID PRN (Reason: pain) Qty: 30 0RF lidocaine [Lidoderm] 5 % adhesive patch,medicated 2 patch topical QDAY PRN (Reason: pain) Qty: 30 0RF Rx Instructions: leave on most painful area for up to 12 hrs ibuprofen 600 mg tablet 600 mg PO Q8H PRN (Reason: pain) Qty: 14 0RF tizanidine 4 mg tablet 4 mg PO BID PRN (Reason: muscle spasticity) Qty: 20 0RF acetaminophen 500 mg tablet 500 mg PO Q6H PRN (Reason: pain) Qty: 30 0RF hydroxyzine pamoate 25 mg capsule 25 mg PO BID PRN (Reason: anxiety) Qty: 10 0RF albuterol sulfate [Ventolin HFA] 90 mcg/actuation HFA aerosol inhaler 1 inh inhalation Q4H PRN (Reason: shortness of breath or wheezing) Qty: 8.5 0RF amoxicillin-pot clavulanate 875-125 mg tablet 1 tab PO BID Qty: 20 0RF lidocaine HCl [Lidocaine Viscous] 2 % solution 10 ml PO Q4H PRN (Reason: sore throat) Qty: 100 0RF ondansetron 4 mg tablet,disintegrating 4 mg PO Q8H PRN (Reason: nausea and vomiting) Qty: 10 0RF Sudafed PE Head Congestn-Pain 200-10 mg tablet 1 tab PO Q4H PRN (Reason: sinus symptoms) Qty: 20 0RF cyclobenzaprine 7.5 mg tablet 7.5 mg PO TID PRN (Reason: muscle spasm) Qty: 30 0RF hydrocodone-acetaminophen 5-325 mg tablet 1 tab PO BID MDD 10 PRN (Reason: pain) Qty: 14 0RF sumatriptan succinate [Imitrex] 25 mg tablet 25 mg PO Q2H PRN (Reason: migraine headache) Qty: 10 0RF Rx Instructions: do not exceed 8 doses per 24 hrs ondansetron 4 mg tablet,disintegrating 4 mg PO Q8H PRN (Reason: nausea and vomiting) Qty: 20 0RF ibuprofen 800 mg tablet 800 mg PO Q8H PRN (Reason: pain) Qty: 20 0RF dicyclomine 20 mg tablet 20 mg PO QID PRN (Reason: abdominal pain) Qty: 30 0RF cephalexin 500 mg capsule 500 mg PO QID Qty: 40 0RF ondansetron 4 mg tablet,disintegrating 4 mg PO Q8H PRN (Reason: nausea and vomiting) Qty: 20 0RF albuterol sulfate [Ventolin HFA] 90 mcg/actuation HFA aerosol inhaler 2 puff inhalation Q6H PRN (Reason: shortness of breath or wheezing) Qty: 8.5 0RF Referrals: Michael Rudolph MD [Primary Care Provider, Family Practice] - In 1 week Problem List Clinical Impression: Headache, Insect bite Patient/Caregiver Discharge Instructions Print Language: Ugandan
--- NOTE | 2025-01-18 02:50 | PRELIM_ITS ---
CT scan of the head without intravenous contrast (axial sections with sagittal and coronal reformats). January 18, 2025 0215 hours Clinical History: headache Reference is made to the prior report dated January 07, 2025. Findings: No evidence of intracranial hemorrhage, mass effect or midline shift. The ventricles and CSF spaces are unremarkable. The calvarium is unremarkable. The mastoid air cells and the visualized paranasal sinuses are clear. Impression: No evidence of intracranial hemorrhage, mass effect or midline shift. Report Electronically Signed By: Quinton Pimentel 01/18/2025 2:49:49 AM [EST]
== END 2025-01-18 02:31 | disposition left against medical advice (07) ==
LOC: SERX 01-18 01:47
PROVIDERS: Emergency Provider Emergency Medicine; PCP Family Medicine
DX: R51.9 Headache, unspecified (principal); R42 Dizziness and giddiness; R11.2 Nausea with vomiting, unspecified; W57.XXXA Bitten or stung by nonvenomous insect and other nonvenomous arthropods, initial encounter
CPT/HCPCS: 70450; 99283

== ENCOUNTER 2025-01-18 19:29 | Emergency (ER) | payer MEDICAID, SELFPAY ==
[2025-01-18 19:30] VITALS: PULSE 98; O2SAT 98; BMI 21.1
[2025-01-18 20:32] VITALS: BP 144/98; PULSE 92; RESP 18; TEMP 36.8; O2SAT 99
--- NOTE | 2025-01-18 22:20 | PD.EDADULT ---
ED General RME/HPI General Chief complaint: Abdominal Pain Stated complaint: ABDOMINAL AND BACK PAIN Time Seen by Provider: 01/18/25 20:22 Arrival date/time: 01/18/25 19:29 CC: Abdominal pain with cramping HPI ongoing since this morning, states onset when he was picking grapes. Patient states he has a normal bowel movement once every day to every other day. Patient rambles on about host of other complaints but his primary focus is abdominal pain. Patient denies fever chest pain shortness of breath or difficulty breathing. Vital signs are stable. Related Data Previous Rx's ?Medication ?Instructions ?Recorded cetirizine 5 mg-pseudoephedrine ER 1 tab PO BID PRN sinus symptoms 08/30/21 120 mg tablet,extended #14 tabs release,12hr (Zyrtec-D) diphenhydramine HCl 25 mg capsule 25 mg PO Q8H PRN allergic symptoms 09/23/22 (Benadryl) #30 caps ibuprofen 600 mg tablet 600 mg PO QID PRN pain #20 tabs 09/23/22 ciprofloxacin HCl 500 mg tablet 500 mg PO BID #14 tabs 11/29/22 (Cipro) dicyclomine 20 mg tablet 20 mg PO BID #20 tabs 11/29/22 metronidazole 500 mg tablet 500 mg PO BID #14 tabs 11/29/22 cyclobenzaprine 7.5 mg tablet 7.5 mg PO TID PRN muscle spasm #30 12/03/22 tabs hydrocodone 5 mg-acetaminophen 325 1 tab PO BID PRN pain #14 tabs 01/16/23 mg tablet hydroxyzine HCl 50 mg tablet 50 mg PO Q6H PRN anxiety #20 tabs 01/18/24 amoxicillin 875 mg-potassium 1 tab PO BID #14 tabs 02/07/24 clavulanate 125 mg tablet acetaminophen 325 mg tablet 650 mg (2 x 325 mg) PO TID PRN 02/11/24 pain #30 tabs ibuprofen 600 mg tablet 600 mg PO Q8H PRN pain #30 tabs 02/11/24 ibuprofen 600 mg tablet 600 mg PO Q8H PRN pain #14 tabs 02/15/24 lidocaine 5 % topical patch 2 patch topical QDAY PRN pain #30 02/15/24 (Lidoderm) ea acetaminophen 500 mg tablet 500 mg PO Q6H PRN pain #30 tabs 09/15/24 tizanidine 4 mg tablet 4 mg PO BID PRN muscle spasticity 09/15/24 #20 tabs sumatriptan succinate 25 mg tablet 25 mg PO Q2H PRN migraine headache 10/08/24 (Imitrex) #10 tabs albuterol sulfate 90 mcg/actuation 1 inh inhalation Q4H PRN shortness 11/06/24 aerosol inhaler (Ventolin HFA) of breath or wheezing #8.5 grams hydroxyzine pamoate 25 mg capsule 25 mg PO BID PRN anxiety #10 caps 11/06/24 ibuprofen 800 mg tablet 800 mg PO Q8H PRN pain #20 tabs 12/21/24 ondansetron 4 mg disintegrating 4 mg PO Q8H PRN nausea and 12/21/24 tablet vomiting #20 tabs dicyclomine 20 mg tablet 20 mg PO QID PRN abdominal pain 12/27/24 #30 tabs cephalexin 500 mg capsule 500 mg PO QID #40 caps 12/28/24 albuterol sulfate 90 mcg/actuation 2 puff inhalation Q6H PRN 01/03/25 aerosol inhaler (Ventolin HFA) shortness of breath or wheezing #8.5 grams ondansetron 4 mg disintegrating 4 mg PO Q8H PRN nausea and 01/03/25 tablet vomiting #20 tabs amoxicillin 875 mg-potassium 1 tab PO BID #20 tabs 01/16/25 clavulanate 125 mg tablet ibuprofen 200 mg-phenylephrine HCl 1 tab PO Q4H PRN sinus symptoms 01/16/25 10 mg tablet (Sudafed PE Head #20 tabs Congestion-Pain) lidocaine HCl 2 % mucosal solution 10 ml PO Q4H PRN sore throat #100 01/16/25 (Lidocaine Viscous) mL ondansetron 4 mg disintegrating 4 mg PO Q8H PRN nausea and 01/16/25 tablet vomiting #10 tabs cephalexin 500 mg capsule 500 mg PO QID #28 caps 01/18/25 triamcinolone acetonide 0.025 % 1 applic topical BID #15 grams 01/18/25 topical ointment Allergies Allergy/AdvReac Type Severity Reaction Status Date / Time No Known Allergies Allergy Verified 01/17/25 23:49 Review of Systems Review of Systems Narrative Review of Systems: GEN: No fever, no chills, no weight loss EYES: No discharge, no visual changes, no pain HEENT: No ear pain, no congestion, no sore throat PULM: No shortness of breath, no cough, no congestion CV: No chest pain, no dyspnea on exertion, no palpitations GI: No nausea, no vomiting, no diarrhea, + pain, no constipation : No frequency, no urgency, no dysuria MUSC/SKEL: No joint pain, no back pain SKIN: No rash PSYCH: No hallucinations, no depression HEME/LYMPH: No easy bleeding or bruising tendencies NEURO: No weakness, no headache Past Medical History Past Medical History NEUROLOGIC: Negative Neurological Disorders or Seizures CARDIAC: Negative Cardiac Disorders or Congestive Heart Failure RESPIRATORY: Negative Chronic Obstructive Pulmonary Disease (COPD) or Asthma GASTROINTESTINAL: Negative Gastrointestinal Disorders GENITOURINARY: Negative Genitourinary Disorders or Renal Disease MUSCULOSKELETAL: Negative Musculoskeletal Disorders ENDOCRINE: Negative Endocrine Disorders, Diabetes Mellitus Type 1 or Diabetes Mellitus Type 2 HEMATOLOGIC: Negative Blood Disorders or Sickle Cell Disease OTHER HISTORY: Positive Chicken Pox; Negative Hospitalization, Blood Transfusions, Blood Transfusion Reaction, Anesthesia Reactions or Cancer Social History SMOKING STATUS: Current every day smoker SUBSTANCE USE: does not use and methamphetamine ED Exam Narrative Physical exam: [General: Not in any acute distress Head normocephalic HEENT: Eyes pupils are PERRLA EOMs are intact although the subsystems of ATTR within acceptable limits Neck is supple nontender Chest equal chest rise nontender to palpation Respiratory: Clear to auscultation no wheezes crackles or rubs CV: Rate rhythm is regular no murmurs rubs or clicks Abdomen is soft nontender no masses positive bowel sounds all 4 quadrants Back: No CVA tenderness no spinous process tenderness from cervical spine thoracic and lumbar spine Skin: Intact no petechiae rash induration ulceration or crepitus Extremities: Moving all extremities against resistance cap refill less than 2 seconds neurosensory intact Neuro: Awake alert oriented x3 Glascow coma 15 no focal deficits] Course Quality Measures none Orders Category Date Time Status Ketorolac Inj [Toradol Inj] Med 01/18/25 22:20 Once 15 mg IM X1 ONE Vital Signs Vital signs: Vital Signs Temperature 98.3 F 01/18/25 20:32 Pulse Rate 92 01/18/25 20:32 Respiratory Rate 18 01/18/25 20:32 Blood Pressure 144/98 H 01/18/25 20:32 Pulse Oximetry (%) 99 01/18/25 20:32 Oxygen Delivery Method Room Air 01/18/25 20:32 Discharge Plan Plan Patient Disposition: HOME (Self Care) Patient condition on transfer: Stable Prescriptions/Referrals Prescriptions/Med Rec: No Action cetirizine-pseudoephedrine [Zyrtec-D] 5-120 mg tablet extended release 12 hr 1 tab PO BID PRN (Reason: sinus symptoms) Qty: 14 0RF diphenhydramine HCl [Benadryl] 25 mg capsule 25 mg PO Q8H PRN (Reason: allergic symptoms) Qty: 30 0RF ibuprofen 600 mg tablet 600 mg PO QID PRN (Reason: pain) Qty: 20 0RF ciprofloxacin HCl [Cipro] 500 mg tablet 500 mg PO BID Qty: 14 0RF metronidazole 500 mg tablet 500 mg PO BID Qty: 14 0RF dicyclomine 20 mg tablet 20 mg PO BID Qty: 20 0RF hydroxyzine HCl 50 mg tablet 50 mg PO Q6H PRN (Reason: anxiety) Qty: 20 0RF amoxicillin-pot clavulanate 875-125 mg tablet 1 tab PO BID Qty: 14 0RF ibuprofen 600 mg tablet 600 mg PO Q8H PRN (Reason: pain) Qty: 30 0RF acetaminophen 325 mg tablet 650 mg PO TID PRN (Reason: pain) Qty: 30 0RF lidocaine [Lidoderm] 5 % adhesive patch,medicated 2 patch topical QDAY PRN (Reason: pain) Qty: 30 0RF Rx Instructions: leave on most painful area for up to 12 hrs ibuprofen 600 mg tablet 600 mg PO Q8H PRN (Reason: pain) Qty: 14 0RF tizanidine 4 mg tablet 4 mg PO BID PRN (Reason: muscle spasticity) Qty: 20 0RF acetaminophen 500 mg tablet 500 mg PO Q6H PRN (Reason: pain) Qty: 30 0RF hydroxyzine pamoate 25 mg capsule 25 mg PO BID PRN (Reason: anxiety) Qty: 10 0RF albuterol sulfate [Ventolin HFA] 90 mcg/actuation HFA aerosol inhaler 1 inh inhalation Q4H PRN (Reason: shortness of breath or wheezing) Qty: 8.5 0RF amoxicillin-pot clavulanate 875-125 mg tablet 1 tab PO BID Qty: 20 0RF lidocaine HCl [Lidocaine Viscous] 2 % solution 10 ml PO Q4H PRN (Reason: sore throat) Qty: 100 0RF ondansetron 4 mg tablet,disintegrating 4 mg PO Q8H PRN (Reason: nausea and vomiting) Qty: 10 0RF Sudafed PE Head Congestn-Pain 200-10 mg tablet 1 tab PO Q4H PRN (Reason: sinus symptoms) Qty: 20 0RF cyclobenzaprine 7.5 mg tablet 7.5 mg PO TID PRN (Reason: muscle spasm) Qty: 30 0RF hydrocodone-acetaminophen 5-325 mg tablet 1 tab PO BID MDD 10 PRN (Reason: pain) Qty: 14 0RF sumatriptan succinate [Imitrex] 25 mg tablet 25 mg PO Q2H PRN (Reason: migraine headache) Qty: 10 0RF Rx Instructions: do not exceed 8 doses per 24 hrs ondansetron 4 mg tablet,disintegrating 4 mg PO Q8H PRN (Reason: nausea and vomiting) Qty: 20 0RF ibuprofen 800 mg tablet 800 mg PO Q8H PRN (Reason: pain) Qty: 20 0RF dicyclomine 20 mg tablet 20 mg PO QID PRN (Reason: abdominal pain) Qty: 30 0RF cephalexin 500 mg capsule 500 mg PO QID Qty: 40 0RF ondansetron 4 mg tablet,disintegrating 4 mg PO Q8H PRN (Reason: nausea and vomiting) Qty: 20 0RF albuterol sulfate [Ventolin HFA] 90 mcg/actuation HFA aerosol inhaler 2 puff inhalation Q6H PRN (Reason: shortness of breath or wheezing) Qty: 8.5 0RF triamcinolone acetonide 0.025 % ointment 1 applic topical BID Qty: 15 0RF cephalexin 500 mg capsule 500 mg PO QID Qty: 28 0RF Referrals: Michael Rudolph MD [Physician, Family Practice] - In 1 week No Primary/Family,Physician [Primary Care Provider] - In 1 week Problem List Clinical Impression: Abdominal pain Patient/Caregiver Discharge Instructions Education Materials: Abdominal Pain Additional Instructions: For any complaint you have in the future please check in with your primary care doctor before you come to the emergency room. Print Language: Pashto Stand Alone Forms: Selin Award Info., Patient Portal Info Letter NATHANAEL/CESAR Supervising Physician NATHANAEL/CESAR Supervising Physician: Christian Granados ENP [facility] Clinical Information Provided by patient Medical Records Reviewed [facility] Meds/Rx Considered, not Ordered None Labs/Rad/Tests considered, not Ordered None Chronic Illness/Social Conditions which may negatively complicate care or outcome(s)-explain: None or not applicable Add or document further as needed: Patient visits the emergency often for a wide variety of nonlethal complaints seeking medication of any kind. Patient has been known to be discharged from this facility and called 911 for the waiting room to be taken to the next facility. At this time the patient is offered nonsteroidal anti-inflammatory patient will be given injection of Toradol for a [id number] complaint and discharged home. EKG EKG not done Lab Interpretation Labs: none Imaging Imaging interpretation: none Medication Administration(s) none Medication Administration History Ketorolac Tromethamine (Ketorolac Inj 30 Mg/Ml Vial) 15 mg IM X1 ONE Stop: 01/18/25 22:21 Diagnosis Differential diagnosis: Somatization, drug-seeking behavior, abdominal pain Dispositon Disposition: Discharge Home
[2025-01-18] MEDS: KETOROLAC INJ 30 MG/ML VIAL 15 MG IM (22:48)
--- NOTE | 2025-01-18 22:52 | PC.NURSE ---
Pt left before medication could be assessed
== END 2025-01-18 23:07 | disposition home or self-care (01) ==
PROVIDERS: Emergency Provider Emergency Medicine
DX: R10.9 Unspecified abdominal pain (principal)
CPT/HCPCS: 96372; 99282; J1885

== ENCOUNTER 2025-01-18 23:18 | Emergency (ER) | payer MEDICAID, SELFPAY ==
[2025-01-18 23:19] VITALS: BMI 21.1
[2025-01-19 00:28] VITALS: BP 168/94; PULSE 95; RESP 18; TEMP 36.9; O2SAT 98
[2025-01-19] MEDS: KETOROLAC INJ 30 MG/ML VIAL IM (07:32)
--- NOTE | 2025-01-19 07:34 | EDNOTE_ITS ---
<Statement entered by Meggan Wade MD - 02/07/25 06:10> As co-signing physician, I was present and available for consult prn. I concur with the plan and care as documented by the midlevel provider. ED General RME/HPI General Chief complaint: Abdominal Pain Stated complaint: ABDOMINAL PAIN Time Seen by Provider: 01/19/25 07:14 Arrival date/time: 01/18/25 23:18 39-year-old male with history of methamphetamine abuse and psychiatric disorder presents to the Emergency Department for complaints of back pain and abdominal pain patient has had multiple visits for the same. Patient has been here for total of 7 hours patient reports her symptoms have significantly improved since being here patient requesting a shot of Toradol to be discharged home Limitations: no limitations Related Data Previous Rx's ?Medication ?Instructions ?Recorded cetirizine 5 mg-pseudoephedrine ER 1 tab PO BID PRN si nus symptoms 08/30/21 120 mg tablet,extended #14 tabs release,12hr (Zyrtec-D) diphenhydramine HCl 25 mg capsule 25 mg PO Q8H PRN all ergic symptoms 09/23/22 (Benadryl) #30 caps ibuprofen 600 mg tablet 600 mg PO QID PRN pain #20 t abs 09/23/22 ciprofloxacin HCl 500 mg tablet 500 mg PO BID #14 tabs 11/29/22 (Cipro) dicyclomine 20 mg tablet 20 mg PO BID #20 tabs metronidazole 500 mg tablet 500 mg PO BID #14 tabs cyclobenzaprine 7.5 mg tablet 7.5 mg PO TID PRN muscle spasm #30 12/03/22 tabs hydrocodone 5 mg-acetaminophen 325 1 tab PO BID PRN pa in #14 tabs 01/16/23 mg tablet hydroxyzine HCl 50 mg tablet 50 mg PO Q6H PRN anxiety #20 tabs 01/18/24 amoxicillin 875 mg-potassium 1 tab PO BID #14 tabs 09/25 clavulanate 125 mg tablet acetaminophen 325 mg tablet 650 mg (2 x 325 mg) PO TID PRN 02/11/24 pain #30 tabs ibuprofen 600 mg tablet 600 mg PO Q8H PRN pain #30 t abs 02/11/24 ibuprofen 600 mg tablet 600 mg PO Q8H PRN pain #14 t abs 02/15/24 lidocaine 5 % topical patch 2 patch topical QDAY PRN p ain #30 02/15/24 (Lidoderm) ea acetaminophen 500 mg tablet 500 mg PO Q6H PRN pain #30 tabs 09/15/24 tizanidine 4 mg tablet 4 mg PO BID PRN muscle spast icity 09/15/24 #20 tabs sumatriptan succinate 25 mg tablet 25 mg PO Q2H PRN mi graine headache 10/08/24 (Imitrex) #10 tabs albuterol sulfate 90 mcg/actuation 1 inh inhalation Q4 H PRN shortness 11/06/24 aerosol inhaler (Ventolin HFA) of breath or wheezing # 8.5 grams hydroxyzine pamoate 25 mg capsule 25 mg PO BID PRN anx iety #10 caps 11/06/24 ibuprofen 800 mg tablet 800 mg PO Q8H PRN pain #20 t abs 12/21/24 ondansetron 4 mg disintegrating 4 mg PO Q8H PRN nausea and 12/21/24 tablet vomiting #20 tabs dicyclomine 20 mg tablet 20 mg PO QID PRN abdominal p ain 12/27/24 #30 tabs cephalexin 500 mg capsule 500 mg PO QID #40 caps 12/28 albuterol sulfate 90 mcg/actuation 2 puff inhalation Q 6H PRN 01/03/25 aerosol inhaler (Ventolin HFA) shortness of breath or wheezing #8.5 grams ondansetron 4 mg disintegrating 4 mg PO Q8H PRN nausea and 01/03/25 tablet vomiting #20 tabs amoxicillin 875 mg-potassium 1 tab PO BID #20 tabs clavulanate 125 mg tablet ibuprofen 200 mg-phenylephrine HCl 1 tab PO Q4H PRN si nus symptoms 01/16/25 10 mg tablet (Sudafed PE Head #20 tabs Congestion-Pain) lidocaine HCl 2 % mucosal solution 10 ml PO Q4H PRN so re throat #100 01/16/25 (Lidocaine Viscous) mL ondansetron 4 mg disintegrating 4 mg PO Q8H PRN nausea and 01/16/25 tablet vomiting #10 tabs cephalexin 500 mg capsule 500 mg PO QID #28 caps 01/18 triamcinolone acetonide 0.025 % 1 applic topical BID # 15 grams 01/18/25 topical ointment Allergies Allergy/AdvReac Type Severity Reaction Status Date / Time No Known Allergies Allergy Verified 01/17/25 23:49 Review of Systems Review of Systems Systems Reviewed: All systems reviewed, normal except as documented Constitutional Constitutional: Reports system reviewed and no additional complaints, except as documented, Denies fever(s) and Denies headache(s) Eyes Eyes: Reports system reviewed and no additional complaints, except as documented and Denies blurry vision ENT Ears, Nose, Mouth, and Throat: Reports system reviewed and no additional complaints, except as documented, Denies headache(s), Denies nasal congestion and Denies nasal discharge Cardiovascular Cardiovascular: Reports system reviewed and no additional complaints, except as documented, Denies chest pain and Denies dyspnea Respiratory Respiratory: Reports system reviewed and no additional complaints, except as documented, Denies chest congestion, Denies cough and Denies dyspnea Gastrointestinal Gastrointestinal: Reports system reviewed and no additional complaints, except as documented and Reports abdominal pain Integumentary/Breasts Skin/Breast: Reports system reviewed and no additional complaints, except as documented and Denies rash Neurologic Neurologic: Reports system reviewed and no additional complaints, except as documented, Reports as per HPI and Denies headache(s) Past Medical History Past Medical History NEUROLOGIC: Negative Neurological Disorders or Seizures CARDIAC: Negative Cardiac Disorders or Congestive Heart Failure RESPIRATORY: Negative Chronic Obstructive Pulmonary Disease (COPD) or Asthma GASTROINTESTINAL: Negative Gastrointestinal Disorders GENITOURINARY: Negative Genitourinary Disorders or Renal Disease MUSCULOSKELETAL: Negative Musculoskeletal Disorders ENDOCRINE: Negative Endocrine Disorders, Diabetes Mellitus Type 1 or Diabetes Mellitus Type 2 HEMATOLOGIC: Negative Blood Disorders or Sickle Cell Disease OTHER HISTORY: Positive Chicken Pox; Negative Hospitalization, Blood Transfusions, Blood Transfusion Reaction, Anesthesia Reactions or Cancer Social History SMOKING STATUS: Current every day smoker SUBSTANCE USE: does not use and methamphetamine ED Exam General Limitations: Present no limitations General appearance: Present alert and in no apparent distress Head Head exam: Present atraumatic, normocephalic and normal inspection Eye Eye exam: Present normal appearance, PERRL and EOMI; Absent conjunctival injection ENT ENT exam: Present normal exam, normal oropharynx and mucous membranes moist Neck Neck exam: Present normal inspection, full ROM and trachea midline Chest Chest inspection: Present normal inspection and symmetric chest wall rise Respiratory Respiratory exam: Present normal lung sounds bilaterally; Absent respiratory distress Cardiovascular Cardiovascular exam: Present regular rate, normal rhythm and normal heart sounds Abdominal Exam Abdominal exam: Present soft and normal bowel sounds; Absent distention, tenderness, guarding, rebound, rigidity, Warner's sign, Rovsing's sign or tenderness at McBurney's Point Abdominal tenderness: Absent RUQ or RLQ Extremities Exam Extremities exam: Present normal inspection and full ROM Back Exam Back exam: Present normal inspection and full ROM Neurological Exam Neurological exam: Present alert, oriented X3 and CN II-XII intact Psychiatric Psychiatric exam: Present normal affect and normal mood Skin Skin exam: Present warm, dry, intact and normal color Course Quality Measures none Orders Category Date Time Status Ketorolac Inj [Toradol Inj] Med 01/19/25 07:27 Discontinued 30 mg IM X1 ONE Vital Signs Vital signs: Vital Signs Temperature 98.5 F 01/19/25 00:28 Pulse Rate 95 01/19/25 00:28 Respiratory Rate 18 01/19/25 00:28 Blood Pressure 168/94 H 01/19/25 00:28 Pulse Oximetry (%) 98 01/19/25 00:28 Oxygen Delivery Method Room Air 01/19/25 00:28 O2 saturation 98% room air with normal limits Discharge Plan Plan Patient Disposition: HOME (Self Care) Discharge Disposition comment: Stable Prescriptions/Referrals Prescriptions/Med Rec: No Action cetirizine-pseudoephedrine [Zyrtec-D] 5-120 mg tablet extended release 12 hr 1 tab PO BID PRN (Reason: sinus symptoms) Qty: 14 0RF diphenhydramine HCl [Benadryl] 25 mg capsule 25 mg PO Q8H PRN (Reason: allergic symptoms) Qty: 30 0RF ibuprofen 600 mg tablet 600 mg PO QID PRN (Reason: pain) Qty: 20 0RF ciprofloxacin HCl [Cipro] 500 mg tablet 500 mg PO BID Qty: 14 0RF metronidazole 500 mg tablet 500 mg PO BID Qty: 14 0RF dicyclomine 20 mg tablet 20 mg PO BID Qty: 20 0RF hydroxyzine HCl 50 mg tablet 50 mg PO Q6H PRN (Reason: anxiety) Qty: 20 0RF amoxicillin-pot clavulanate 875-125 mg tablet 1 tab PO BID Qty: 14 0RF ibuprofen 600 mg tablet 600 mg PO Q8H PRN (Reason: pain) Qty: 30 0RF acetaminophen 325 mg tablet 650 mg PO TID PRN (Reason: pain) Qty: 30 0RF lidocaine [Lidoderm] 5 % adhesive patch,medicated 2 patch topical QDAY PRN (Reason: pain) Qty: 30 0RF Rx Instructions: leave on most painful area for up to 12 hrs ibuprofen 600 mg tablet 600 mg PO Q8H PRN (Reason: pain) Qty: 14 0RF tizanidine 4 mg tablet 4 mg PO BID PRN (Reason: muscle spasticity) Qty: 20 0RF acetaminophen 500 mg tablet 500 mg PO Q6H PRN (Reason: pain) Qty: 30 0RF hydroxyzine pamoate 25 mg capsule 25 mg PO BID PRN (Reason: anxiety) Qty: 10 0RF albuterol sulfate [Ventolin HFA] 90 mcg/actuation HFA aerosol inhaler 1 inh inhalation Q4H PRN (Reason: shortness of breath or wheezing) Qty: 8.5 0RF amoxicillin-pot clavulanate 875-125 mg tablet 1 tab PO BID Qty: 20 0RF lidocaine HCl [Lidocaine Viscous] 2 % solution 10 ml PO Q4H PRN (Reason: sore throat) Qty: 100 0RF ondansetron 4 mg tablet,disintegrating 4 mg PO Q8H PRN (Reason: nausea and vomiting) Qty: 10 0RF Sudafed PE Head Congestn-Pain 200-10 mg tablet 1 tab PO Q4H PRN (Reason: sinus symptoms) Qty: 20 0RF cyclobenzaprine 7.5 mg tablet 7.5 mg PO TID PRN (Reason: muscle spasm) Qty: 30 0RF hydrocodone-acetaminophen 5-325 mg tablet 1 tab PO BID MDD 10 PRN (Reason: pain) Qty: 14 0RF sumatriptan succinate [Imitrex] 25 mg tablet 25 mg PO Q2H PRN (Reason: migraine headache) Qty: 10 0RF Rx Instructions: do not exceed 8 doses per 24 hrs ondansetron 4 mg tablet,disintegrating 4 mg PO Q8H PRN (Reason: nausea and vomiting) Qty: 20 0RF ibuprofen 800 mg tablet 800 mg PO Q8H PRN (Reason: pain) Qty: 20 0RF dicyclomine 20 mg tablet 20 mg PO QID PRN (Reason: abdominal pain) Qty: 30 0RF cephalexin 500 mg capsule 500 mg PO QID Qty: 40 0RF ondansetron 4 mg tablet,disintegrating 4 mg PO Q8H PRN (Reason: nausea and vomiting) Qty: 20 0RF albuterol sulfate [Ventolin HFA] 90 mcg/actuation HFA aerosol inhaler 2 puff inhalation Q6H PRN (Reason: shortness of breath or wheezing) Qty: 8.5 0RF triamcinolone acetonide 0.025 % ointment 1 applic topical BID Qty: 15 0RF cephalexin 500 mg capsule 500 mg PO QID Qty: 28 0RF Problem List Clinical Impression: Methamphetamine abuse, Abdominal pain, Body aches Patient/Caregiver Discharge Instructions Education Materials: Abdominal Pain Additional Instructions: Please follow up with your primary care doctor in the next 24-48hrs for any worsening symptoms return here immediately Print Language: [place] Stand Alone Forms: [employer] Info., Patient Portal Info Letter PA/[employer]AL [employer]STATE SERVICES ADMINISTRATOR Supervising Physician PA/CESAR Supervising Physician: dr wade [facility] Narrative [facility] hospital course: 39-year-old male with history of methamphetamine abuse and psychiatric disorder presents to the Emergency Department for complaints of back pain and abdominal pain patient has had multiple visits for the same. Patient has been here for total of 7 hours patient reports her symptoms have significantly improved since being here patient requesting a shot of Toradol to be discharged home On exam patient well-appearing patient does not appear toxic no acute distress Patient has no abdominal tenderness negative Warner sign negative McBurney's point tenderness Lab work and imaging considered but not ordered Explained to the patient should symptoms persist or worsen he should return for reevaluation patient states understanding Clinical Information Provided by none Medical Records Reviewed [facility] Reviewed Meds/Rx Considered, not Ordered Describe details: Given Labs/Rad/Tests considered, not Ordered None Chronic Illness/Social Conditions which may negatively complicate care or outcome(s)-explain: None or not applicable EKG EKG not done Lab Interpretation Labs: none Imaging Imaging interpretation: none Medication Administration(s) Medication Administration History Discontinued Medications Ketorolac Tromethamine (Ketorolac Inj 30 Mg/Ml Vial) 30 mg IM X1 ONE Stop: 01/19/25 07:28 Last Admin: 01/19/25 07:32 Dose: 30 mg Documented By: GM Given Diagnosis Differential diagnosis: Abdominal pain, appendicitis, gastroenteritis, psychiatric disorder, metham Most likely dx, and/or detailed dx discussion: Methamphetamine use, abdominal pain Dispositon Disposition: Discharge Home
== END 2025-01-19 07:35 | disposition home or self-care (01) ==
LOC: SERX 01-19 07:53
PROVIDERS: Emergency Provider Nurse Practitioner Primary Care
DX: R10.9 Unspecified abdominal pain (principal); F15.10 Other stimulant abuse, uncomplicated
CPT/HCPCS: 96372; 99282; J1885

== ENCOUNTER 2025-01-22 08:56 | Emergency (ER) | payer MEDICAID, SELFPAY ==
[2025-01-22 09:03] VITALS: BP 174/99; PULSE 130; RESP 19; TEMP 36.8; O2SAT 97
[2025-01-22 09:07] VITALS: PULSE 110; O2SAT 99; BMI 21.9
--- NOTE | 2025-01-22 09:16 | EKG_ITS ---
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
--- NOTE | 2025-01-22 09:28 | PD.EDRME ---
Rapid Medical Screening Exam RME Arrival date/time: 01/22/25 08:56 39-year-old male with medical history significant for mental health disorder as well as methamphetamine abuse presents to the emergency department today for complaints of cramping Chief Complaint: Back Pain/Injury Time Seen by Provider: 01/22/25 09:05 Vital signs: Vital Signs Temperature 98.3 F 01/22/25 09:03 Pulse Rate 130 H 01/22/25 09:03 Respiratory Rate 19 01/22/25 09:03 Blood Pressure 174/99 H 01/22/25 09:03 Pulse Oximetry (%) 97 01/22/25 09:03 Oxygen Delivery Method Room Air 01/22/25 09:03
[2025-01-22 09:29] VITALS: BP 158/86; PULSE 98; RESP 19; TEMP 37.7; O2SAT 98
--- NOTE | 2025-01-22 09:30 | PC.NURSE ---
PATIENT REFUSED XRAY. PROVIDER DEPPEN NOTIFIED
[2025-01-22 09:40] LABS: Basophils # (Auto) 0.0 Thou/mm3 (0.0-0.2); Basophils % (Auto) 0 % (0-2.5); Eosinophils # (Auto) 0.0 Thou/mm3 (0.0-0.5); Eosinophils % (Auto) 0 % (0-10); Hematocrit 46.1 % (41.0-53.0); Hemoglobin 16.0 g/dL (13.5-16.0); Immature Granulocytes Auto 0.01 Thou/mm3 (0.00-0.00); Lymphocytes # (Auto) 1.5 Thou/mm3 (1.0-4.8); Lymphocytes % (Auto) 18 % (10-50); Mean Corpuscular HGB Conc 34.7 g/dl (31.0-37.0); Mean Corpuscular Hemoglobin 31.1 pg (25.0-35.0); Mean Corpuscular Volume 90 fL (80-100); Monocytes # (Auto) 0.5 Thou/mm3 (0.0-0.8); Monocytes % (Auto) 6 % (0-12); Neutrophils # (Auto) 6.1 Thou/mm3 (1.8-7.7); Neutrophils % (Auto) 75 % (37-80); Nucleated Red Blood Cell # 0.00 Thou/mm3 (0.00-0.00); Nucleated Red Blood Cell % 0 /100 WBC (0); Platelet Count 354 Thou/mm3 (140-440); RDW Standard Deviation 40.6 fL (35.1-43.9); Red Blood Count 5.14 Miln/mm3 (4.50-5.90); White Blood Count 8.1 Thou/mm3 (3.8-10.6)
[2025-01-22 10:07] LABS: Alanine Aminotransferase 11 U/L (10-49); Albumin, Serum 5.0 gm/dL (3.5-5.0); Albumin/Globulin Ratio 2.0 (1.2-2.2); Alkaline Phosphatase 78 U/L (46-116); Anion Gap 11 (7-16); Aspartate Amino Transferase 18 U/L (0-34); BUN/Creatinine Ratio 4 Ratio (12-20); Bilirubin,Total 0.5 mg/dL (0.3-1.2); Blood Urea Nitrogen < 5 mg/dL (9-23); Calcium 10.0 mg/dL (8.3-10.6); Calcium (Corrected) 10.0 mg/dL (8.5-10.1); Carbon Dioxide 24.7 mMol/L (20.0-31.0); Chloride 105 mMol/L (98-107); Creatinine (Component) 1.3 mg/dL (0.6-1.3); Estimated Creatinine Clearance 69.9 mL/min (>60); Globulin 2.5 gm/dL (2.3-3.5); Glucose 130 mg/dL (74-106); Magnesium 1.9 mg/dL (1.6-2.6); Osmolality,Calculated 280 (275-295); Potassium 3.4 mMol/L (3.4-5.1); Sodium 141 mMol/L (136-145); Total Protein 7.5 gm/dL (5.7-8.2); Troponin I < 0.020 ng/mL (0.0-0.045); eGFR > 60 See Note
--- NOTE | 2025-01-22 10:28 | PC.NURSE ---
PT TOLD SECURITY HE WAS LEAVING AND WALKED OUT OF THE E.D. PT NOT FOUND INSIDE THE E.D. OR OUTSIDE
== END 2025-01-22 10:29 | disposition left against medical advice (07) ==
PROVIDERS: Nurse Practitioner Primary Care; Emergency Provider Family Medicine; PCP Family Medicine
DX: R25.2 Cramp and spasm (principal); F15.10 Other stimulant abuse, uncomplicated; Z53.29 Procedure and treatment not carried out because of patient's decision for other reasons
CPT/HCPCS: 36415; 80053; 80307; 80320; 83735; 84484; 85025; 93005; 99283; G0480

== ENCOUNTER 2025-01-22 12:07 | Emergency (ER) | payer MEDICAID, SELFPAY ==
[2025-01-22 12:07] VITALS: BMI 21.9
--- NOTE | 2025-01-22 12:40 | PC.NURSE ---
called pt from [facility] and found pt outside the e.d. Pt did not look at nurse and nurse went to where pt was. Pt stating 'I don't want to be seen here and will go see my own doctor.
--- NOTE | 2025-01-22 14:26 | PD.EDRME ---
Rapid Medical Screening Exam RME Arrival date/time: 01/22/25 12:07 39-year-old male presents to the emerged from today for complaints of generalized pain Patient well-known to me uses methamphetamine regularly and suffers from anxiety Patient GCS 15 answers all questions appropriately but is quite anxious This is RME only patient to be seen in the ER for further evaluation Chief Complaint: General Adult/Misc Complain Time Seen by Provider: 01/22/25 12:18
== END 2025-01-22 12:41 | disposition left against medical advice (07) ==
LOC: SERX 13:16
PROVIDERS: Emergency Provider Family Medicine; PCP Family Medicine
DX: R52 Pain, unspecified (principal); F41.9 Anxiety disorder, unspecified; Z53.29 Procedure and treatment not carried out because of patient's decision for other reasons
CPT/HCPCS: 99281

== ENCOUNTER 2025-01-22 13:47 | Emergency (ER) | payer MEDICAID, SELFPAY ==
[2025-01-22 13:49] VITALS: BMI 21.9
[2025-01-22 14:35] VITALS: BP 158/95; PULSE 89; RESP 18; TEMP 37.1; O2SAT 95
--- NOTE | 2025-01-22 14:40 | PC.NURSE ---
PT CAME TO TRIAGE DESK TO SAY HE WAS LEAVING BECAUSE I DON'T HAVE THE CRAMPING ANY MORE. DISCUSSED WITH PT THAT IF HE LEAVES BEFORE THE PROVIDER FINISHES A WORK UP, THAT HE WILL JUST BE COMING BACK LIKE HE HAS DONE 3 TIMES TODAY. PT STILL WANTS TO LEAVE AND SIGNED [facility] FORM AND LEFT
--- NOTE | 2025-01-22 15:07 | PC.CC ---
ED Station Mechanic Apprentice received SS request due to Pt x3 time in ED today. Loom Fixer Helper made contact with Pt at bedside, role and reason for the contact was explained to Pt. Demographic information was verified. Pt reported he continues to be in pain and that is the reason why he continues to return to ER. Loom Fixer Helper provided Pt with MH resources, community resources, and substance abuse resources. Loom Fixer Helper offered Pt food/water and footwear due to Pt just wearing socks. Pt declined food/water and footwear. Pt accepted resources provided and requested Uber transportation. Loom Fixer Helper coordinated [employer] transport after medical services were provided.
--- NOTE | 2025-01-22 16:02 | PD.EDRME ---
Rapid Medical Screening Exam RME Arrival date/time: 01/22/25 13:47 Patient presents for complaints of generalized pain patient left the ER and return to the ER again Chief Complaint: General Adult/Misc Complain Vital signs: Vital Signs Temperature 98.7 F 01/22/25 14:35 Pulse Rate 89 01/22/25 14:35 Respiratory Rate 18 01/22/25 14:35 Blood Pressure 158/95 H 01/22/25 14:35 Pulse Oximetry (%) 95 01/22/25 14:35 Oxygen Delivery Method Room Air 01/22/25 14:35
== END 2025-01-22 14:40 | disposition left against medical advice (07) ==
PROVIDERS: Emergency Provider Family Medicine; PCP Family Medicine
DX: R52 Pain, unspecified (principal); Z53.29 Procedure and treatment not carried out because of patient's decision for other reasons
CPT/HCPCS: 99281

== ENCOUNTER 2025-01-22 14:50 | Emergency (ER) | payer MEDICAID, SELFPAY ==
[2025-01-22 14:51] VITALS: BMI 21.9
[2025-01-22 14:56] VITALS: BP 159/91; PULSE 107; RESP 18; TEMP 36.9; O2SAT 96
--- NOTE | 2025-01-22 15:02 | PD.EDADULT ---
ED General RME/HPI General Chief complaint: General Adult/Misc Complain Stated complaint: I NEED TO BE SEEN AGAIN Time Seen by Provider: 01/22/25 15:01 Arrival date/time: 01/22/25 14:50 39-year-old male presents to the emergency department today for complaints of generalized pain and anxiety. Patient reports no chest pain or shortness of breath does report generalized back pain. Patient reports nothing symptoms better or worse quality aching in nature no radiation of symptoms severity mild no treatment prior to arrival Limitations: no limitations Related Data Previous Rx's ?Medication ?Instructions ?Recorded cetirizine 5 mg-pseudoephedrine ER 1 tab PO BID PRN sinus symptoms 08/30/21 120 mg tablet,extended #14 tabs release,12hr (Zyrtec-D) diphenhydramine HCl 25 mg capsule 25 mg PO Q8H PRN allergic symptoms 09/23/22 (Benadryl) #30 caps ibuprofen 600 mg tablet 600 mg PO QID PRN pain #20 tabs 09/23/22 ciprofloxacin HCl 500 mg tablet 500 mg PO BID #14 tabs 11/29/22 (Cipro) dicyclomine 20 mg tablet 20 mg PO BID #20 tabs 11/29/22 metronidazole 500 mg tablet 500 mg PO BID #14 tabs 11/29/22 cyclobenzaprine 7.5 mg tablet 7.5 mg PO TID PRN muscle spasm #30 12/03/22 tabs hydrocodone 5 mg-acetaminophen 325 1 tab PO BID PRN pain #14 tabs 01/16/23 mg tablet hydroxyzine HCl 50 mg tablet 50 mg PO Q6H PRN anxiety #20 tabs 01/18/24 amoxicillin 875 mg-potassium 1 tab PO BID #14 tabs 02/07/24 clavulanate 125 mg tablet acetaminophen 325 mg tablet 650 mg (2 x 325 mg) PO TID PRN 02/11/24 pain #30 tabs ibuprofen 600 mg tablet 600 mg PO Q8H PRN pain #30 tabs 02/11/24 ibuprofen 600 mg tablet 600 mg PO Q8H PRN pain #14 tabs 02/15/24 lidocaine 5 % topical patch 2 patch topical QDAY PRN pain #30 02/15/24 (Lidoderm) ea acetaminophen 500 mg tablet 500 mg PO Q6H PRN pain #30 tabs 09/15/24 tizanidine 4 mg tablet 4 mg PO BID PRN muscle spasticity 09/15/24 #20 tabs sumatriptan succinate 25 mg tablet 25 mg PO Q2H PRN migraine headache 10/08/24 (Imitrex) #10 tabs albuterol sulfate 90 mcg/actuation 1 inh inhalation Q4H PRN shortness 11/06/24 aerosol inhaler (Ventolin HFA) of breath or wheezing #8.5 grams hydroxyzine pamoate 25 mg capsule 25 mg PO BID PRN anxiety #10 caps 11/06/24 ibuprofen 800 mg tablet 800 mg PO Q8H PRN pain #20 tabs 12/21/24 ondansetron 4 mg disintegrating 4 mg PO Q8H PRN nausea and 12/21/24 tablet vomiting #20 tabs dicyclomine 20 mg tablet 20 mg PO QID PRN abdominal pain 12/27/24 #30 tabs cephalexin 500 mg capsule 500 mg PO QID #40 caps 12/28/24 albuterol sulfate 90 mcg/actuation 2 puff inhalation Q6H PRN 01/03/25 aerosol inhaler (Ventolin HFA) shortness of breath or wheezing #8.5 grams ondansetron 4 mg disintegrating 4 mg PO Q8H PRN nausea and 01/03/25 tablet vomiting #20 tabs amoxicillin 875 mg-potassium 1 tab PO BID #20 tabs 01/16/25 clavulanate 125 mg tablet ibuprofen 200 mg-phenylephrine HCl 1 tab PO Q4H PRN sinus symptoms 01/16/25 10 mg tablet (Sudafed PE Head #20 tabs Congestion-Pain) lidocaine HCl 2 % mucosal solution 10 ml PO Q4H PRN sore throat #100 01/16/25 (Lidocaine Viscous) mL ondansetron 4 mg disintegrating 4 mg PO Q8H PRN nausea and 01/16/25 tablet vomiting #10 tabs cephalexin 500 mg capsule 500 mg PO QID #28 caps 01/18/25 triamcinolone acetonide 0.025 % 1 applic topical BID #15 grams 01/18/25 topical ointment Allergies Allergy/AdvReac Type Severity Reaction Status Date / Time No Known Allergies Allergy Verified 01/24/25 23:42 Review of Systems Review of Systems Systems Reviewed: All systems reviewed, normal except as documented Constitutional Constitutional: Reports system reviewed and no additional complaints, except as documented, Denies fever(s) and Denies headache(s) Eyes Eyes: Reports system reviewed and no additional complaints, except as documented and Denies blurry vision ENT Ears, Nose, Mouth, and Throat: Reports system reviewed and no additional complaints, except as documented, Denies headache(s), Denies nasal congestion and Denies nasal discharge Cardiovascular Cardiovascular: Reports system reviewed and no additional complaints, except as documented, Denies chest pain and Denies dyspnea Respiratory Respiratory: Reports system reviewed and no additional complaints, except as documented, Denies chest congestion, Denies cough and Denies dyspnea Gastrointestinal Gastrointestinal: Reports system reviewed and no additional complaints, except as documented and Denies abdominal pain Integumentary/Breasts Skin/Breast: Reports system reviewed and no additional complaints, except as documented and Denies rash Neurologic Neurologic: Reports system reviewed and no additional complaints, except as documented, Reports as per HPI and Denies headache(s) Psychiatric Psychiatric: Reports system reviewed and no additional complaints, except as documented and Reports anxiety Past Medical History Past Medical History NEUROLOGIC: Negative Neurological Disorders or Seizures CARDIAC: Negative Cardiac Disorders or Congestive Heart Failure RESPIRATORY: Negative Chronic Obstructive Pulmonary Disease (COPD) or Asthma GASTROINTESTINAL: Negative Gastrointestinal Disorders GENITOURINARY: Negative Genitourinary Disorders or Renal Disease MUSCULOSKELETAL: Negative Musculoskeletal Disorders ENDOCRINE: Negative Endocrine Disorders, Diabetes Mellitus Type 1 or Diabetes Mellitus Type 2 HEMATOLOGIC: Negative Blood Disorders or Sickle Cell Disease PSYCHO/SOCIAL: Positive Recreational Drug Use OTHER HISTORY: Positive Chicken Pox; Negative Hospitalization, Blood Transfusions, Blood Transfusion Reaction, Anesthesia Reactions or Cancer Social History SMOKING STATUS: Never smoker SUBSTANCE USE: methamphetamine ED Exam General Limitations: Present no limitations General appearance: Present alert and in no apparent distress Head Head exam: Present atraumatic Eye Eye exam: Present normal appearance, PERRL and EOMI ENT ENT exam: Present normal exam, normal oropharynx and mucous membranes moist Neck Neck exam: Present normal inspection, full ROM and trachea midline Chest Chest inspection: Present normal inspection and symmetric chest wall rise Respiratory Respiratory exam: Present normal lung sounds bilaterally Cardiovascular Cardiovascular exam: Present regular rate, normal rhythm and normal heart sounds Abdominal Exam Abdominal exam: Present soft and normal bowel sounds Extremities Exam Extremities exam: Present normal inspection and full ROM Back Exam Back exam: Present normal inspection and full ROM Neurological Exam Neurological exam: Present alert, oriented X3 and CN II-XII intact Psychiatric Psychiatric exam: Present anxious; Absent flat affect, manic, homicidal ideation or suicidal ideation Skin Skin exam: Present warm, dry, intact and normal color Course Quality Measures none Orders Category Date Time Status Ketorolac Inj [Toradol Inj] Med 01/22/25 15:01 Discontinued 30 mg IM X1 ONE Vital Signs Vital signs: Vital Signs Temperature 98.4 F 01/22/25 14:56 Pulse Rate 107 H 01/22/25 14:56 Respiratory Rate 18 01/22/25 14:56 Blood Pressure 159/91 H 01/22/25 14:56 Pulse Oximetry (%) 96 01/22/25 14:56 Oxygen Delivery Method Room Air 01/22/25 14:56 o2 sat 96% r.a wnl Discharge Plan Plan Patient Disposition: HOME (Self Care) Discharge Disposition comment: Stable Prescriptions/Referrals Prescriptions/Med Rec: No Action cetirizine-pseudoephedrine [Zyrtec-D] 5-120 mg tablet extended release 12 hr 1 tab PO BID PRN (Reason: sinus symptoms) Qty: 14 0RF diphenhydramine HCl [Benadryl] 25 mg capsule 25 mg PO Q8H PRN (Reason: allergic symptoms) Qty: 30 0RF ibuprofen 600 mg tablet 600 mg PO QID PRN (Reason: pain) Qty: 20 0RF ciprofloxacin HCl [Cipro] 500 mg tablet 500 mg PO BID Qty: 14 0RF metronidazole 500 mg tablet 500 mg PO BID Qty: 14 0RF dicyclomine 20 mg tablet 20 mg PO BID Qty: 20 0RF hydroxyzine HCl 50 mg tablet 50 mg PO Q6H PRN (Reason: anxiety) Qty: 20 0RF amoxicillin-pot clavulanate 875-125 mg tablet 1 tab PO BID Qty: 14 0RF ibuprofen 600 mg tablet 600 mg PO Q8H PRN (Reason: pain) Qty: 30 0RF acetaminophen 325 mg tablet 650 mg PO TID PRN (Reason: pain) Qty: 30 0RF lidocaine [Lidoderm] 5 % adhesive patch,medicated 2 patch topical QDAY PRN (Reason: pain) Qty: 30 0RF Rx Instructions: leave on most painful area for up to 12 hrs ibuprofen 600 mg tablet 600 mg PO Q8H PRN (Reason: pain) Qty: 14 0RF tizanidine 4 mg tablet 4 mg PO BID PRN (Reason: muscle spasticity) Qty: 20 0RF acetaminophen 500 mg tablet 500 mg PO Q6H PRN (Reason: pain) Qty: 30 0RF hydroxyzine pamoate 25 mg capsule 25 mg PO BID PRN (Reason: anxiety) Qty: 10 0RF albuterol sulfate [Ventolin HFA] 90 mcg/actuation HFA aerosol inhaler 1 inh inhalation Q4H PRN (Reason: shortness of breath or wheezing) Qty: 8.5 0RF amoxicillin-pot clavulanate 875-125 mg tablet 1 tab PO BID Qty: 20 0RF lidocaine HCl [Lidocaine Viscous] 2 % solution 10 ml PO Q4H PRN (Reason: sore throat) Qty: 100 0RF ondansetron 4 mg tablet,disintegrating 4 mg PO Q8H PRN (Reason: nausea and vomiting) Qty: 10 0RF Sudafed PE Head Congestn-Pain 200-10 mg tablet 1 tab PO Q4H PRN (Reason: sinus symptoms) Qty: 20 0RF cyclobenzaprine 7.5 mg tablet 7.5 mg PO TID PRN (Reason: muscle spasm) Qty: 30 0RF hydrocodone-acetaminophen 5-325 mg tablet 1 tab PO BID MDD 10 PRN (Reason: pain) Qty: 14 0RF sumatriptan succinate [Imitrex] 25 mg tablet 25 mg PO Q2H PRN (Reason: migraine headache) Qty: 10 0RF Rx Instructions: do not exceed 8 doses per 24 hrs ondansetron 4 mg tablet,disintegrating 4 mg PO Q8H PRN (Reason: nausea and vomiting) Qty: 20 0RF ibuprofen 800 mg tablet 800 mg PO Q8H PRN (Reason: pain) Qty: 20 0RF dicyclomine 20 mg tablet 20 mg PO QID PRN (Reason: abdominal pain) Qty: 30 0RF cephalexin 500 mg capsule 500 mg PO QID Qty: 40 0RF ondansetron 4 mg tablet,disintegrating 4 mg PO Q8H PRN (Reason: nausea and vomiting) Qty: 20 0RF albuterol sulfate [Ventolin HFA] 90 mcg/actuation HFA aerosol inhaler 2 puff inhalation Q6H PRN (Reason: shortness of breath or wheezing) Qty: 8.5 0RF triamcinolone acetonide 0.025 % ointment 1 applic topical BID Qty: 15 0RF cephalexin 500 mg capsule 500 mg PO QID Qty: 28 0RF Problem List Clinical Impression: Chronic pain, Methamphetamine abuse, Psychiatric disorder Patient/Caregiver Discharge Instructions Education Materials: ED Chronic Pain Additional Instructions: Please follow up with your primary care doctor in the next 24-48hrs for any worsening symptoms return here immediately Print Language: Turkmen Stand Alone Forms: Selin Award Info., Patient Portal Info Letter PA/FOOD STYLIST Supervising Physician PA/FOOD STYLIST Supervising Physician: dr marie MDM Narrative MDM hospital course (for use when minimal MDM required): 39-year-old male presents to the emergency department today for complaints of generalized pain and anxiety. Patient reports no chest pain or shortness of breath does report generalized back pain. Patient reports nothing symptoms better or worse quality aching in nature no radiation of symptoms severity mild no treatment prior to arrival Patient has checked him multiple times to the ER today believe this is the fourth time Patient does have a significant history of methamphetamine abuse as well as psychiatric disorder I asked social organization professor to speak with the patient patient states he be happy to get a pain shot and to get a ride home Patient was given Toradol and patient was given an uber Explained to the patient if he has any emergency concerns sores welcome to return to the ER Clinical Information Provided by: patient Medical Records reviewed [facility] Meds/Rx considered, not ordered describe: Given Labs/Rad/Tests considered, not ordered None Chronic Illness/Social Conditions which may negatively complicate care or outcome(s)-explain: None or not applicable EKG EKG not done Labs Labs: none Imaging Imaging interpretation: none Medication Administration(s) Medication Administration History Discontinued Medications Ketorolac Tromethamine (Ketorolac Inj 30 Mg/Ml Vial) 30 mg IM X1 ONE Stop: 01/22/25 15:02 Last Admin: 01/22/25 15:10 Dose: 30 mg Documented By: Given Diagnosis Differential Diagnosis ED Complaint MDM: Muscle strain, muscle sprain, fracture
[2025-01-22] MEDS: KETOROLAC INJ 30 MG/ML VIAL IM (15:10)
== END 2025-01-22 15:45 | disposition home or self-care (01) ==
LOC: SERX 15:50
PROVIDERS: Emergency Provider Family Medicine
DX: G89.29 Other chronic pain (principal); F15.10 Other stimulant abuse, uncomplicated; F41.9 Anxiety disorder, unspecified
CPT/HCPCS: 96372; 99282; J1885

== ENCOUNTER 2025-01-22 19:05 | Emergency (ER) | payer MEDICAID, SELFPAY ==
--- NOTE | 2025-01-22 19:24 | PD.EDADULT ---
ED General RME/HPI General Chief complaint: General Adult/Misc Complain Stated complaint: NOT FEELING GOOD Time Seen by Provider: 01/22/25 19:17 Arrival date/time: 01/22/25 19:05 RME / HPI RME / HPI narrative: See [facility] for Dr. Lara's HPI Documentation. Related Data Previous Rx's ?Medication ?Instructions ?Recorded cetirizine 5 mg-pseudoephedrine ER 1 tab PO BID PRN sinus symptoms 08/30/21 120 mg tablet,extended #14 tabs release,12hr (Zyrtec-D) diphenhydramine HCl 25 mg capsule 25 mg PO Q8H PRN allergic symptoms 09/23/22 (Benadryl) #30 caps ibuprofen 600 mg tablet 600 mg PO QID PRN pain #20 tabs 09/23/22 ciprofloxacin HCl 500 mg tablet 500 mg PO BID #14 tabs 11/29/22 (Cipro) dicyclomine 20 mg tablet 20 mg PO BID #20 tabs 11/29/22 metronidazole 500 mg tablet 500 mg PO BID #14 tabs 11/29/22 cyclobenzaprine 7.5 mg tablet 7.5 mg PO TID PRN muscle spasm #30 12/03/22 tabs hydrocodone 5 mg-acetaminophen 325 1 tab PO BID PRN pain #14 tabs 01/16/23 mg tablet hydroxyzine HCl 50 mg tablet 50 mg PO Q6H PRN anxiety #20 tabs 01/18/24 amoxicillin 875 mg-potassium 1 tab PO BID #14 tabs 02/07/24 clavulanate 125 mg tablet acetaminophen 325 mg tablet 650 mg (2 x 325 mg) PO TID PRN 02/11/24 pain #30 tabs ibuprofen 600 mg tablet 600 mg PO Q8H PRN pain #30 tabs 02/11/24 ibuprofen 600 mg tablet 600 mg PO Q8H PRN pain #14 tabs 02/15/24 lidocaine 5 % topical patch 2 patch topical QDAY PRN pain #30 02/15/24 (Lidoderm) ea acetaminophen 500 mg tablet 500 mg PO Q6H PRN pain #30 tabs 05/14/25 tizanidine 4 mg tablet 4 mg PO BID PRN muscle spasticity 09/15/24 #20 tabs sumatriptan succinate 25 mg tablet 25 mg PO Q2H PRN migraine headache 10/08/24 (Imitrex) #10 tabs albuterol sulfate 90 mcg/actuation 1 inh inhalation Q4H PRN shortness 11/06/24 aerosol inhaler (Ventolin HFA) of breath or wheezing #8.5 grams hydroxyzine pamoate 25 mg capsule 25 mg PO BID PRN anxiety #10 caps 11/06/24 ibuprofen 800 mg tablet 800 mg PO Q8H PRN pain #20 tabs 12/21/24 ondansetron 4 mg disintegrating 4 mg PO Q8H PRN nausea and 12/21/24 tablet vomiting #20 tabs dicyclomine 20 mg tablet 20 mg PO QID PRN abdominal pain 12/27/24 #30 tabs cephalexin 500 mg capsule 500 mg PO QID #40 caps 12/28/24 albuterol sulfate 90 mcg/actuation 2 puff inhalation Q6H PRN 01/03/25 aerosol inhaler (Ventolin HFA) shortness of breath or wheezing #8.5 grams ondansetron 4 mg disintegrating 4 mg PO Q8H PRN nausea and 01/03/25 tablet vomiting #20 tabs amoxicillin 875 mg-potassium 1 tab PO BID #20 tabs 01/16/25 clavulanate 125 mg tablet ibuprofen 200 mg-phenylephrine HCl 1 tab PO Q4H PRN sinus symptoms 01/16/25 10 mg tablet (Sudafed PE Head #20 tabs Congestion-Pain) lidocaine HCl 2 % mucosal solution 10 ml PO Q4H PRN sore throat #100 01/16/25 (Lidocaine Viscous) mL ondansetron 4 mg disintegrating 4 mg PO Q8H PRN nausea and 01/16/25 tablet vomiting #10 tabs cephalexin 500 mg capsule 500 mg PO QID #28 caps 01/18/25 triamcinolone acetonide 0.025 % 1 applic topical BID #15 grams 01/18/25 topical ointment Allergies Allergy/AdvReac Type Severity Reaction Status Date / Time No Known Allergies Allergy Verified 01/22/25 14:52 Review of Systems Review of Systems Systems Reviewed: All systems reviewed, normal except as documented Past Medical History Past Medical History PSYCHO/SOCIAL: Positive Recreational Drug Use Social History SMOKING STATUS: Current every day smoker SUBSTANCE USE: methamphetamine SUBSTANCE LAST USED: unknown ED Exam Narrative Physical exam: See [facility] for Dr. Lara's Physical Exam Documentation. Course Quality Measures none Orders Category Date Time Status Straight [In and Out Catheter] X1 Care 01/22/25 19:26 Completed Alcohol, Blood Medical Stat Lab 01/22/25 19:35 Completed Bilirubin,Direct Stat Lab 01/22/25 19:35 Completed CBC Stat Lab 01/22/25 19:35 Completed CK [Creatine Kinase] Stat Lab 01/22/25 19:35 Completed CMP [Comprehensive Metabolic Panel] Stat Lab 01/22/25 19:35 Completed CRP [C-Reactive Protein] Stat Lab 01/22/25 19:35 Completed ESR [Sed Rate (ESR)] Stat Lab 01/22/25 19:35 Completed Magnesium Stat Lab 01/22/25 19:35 Completed Procalcitonin Stat Lab 01/22/25 19:35 Completed Vital Signs Vital signs: Vital Signs Temperature 98.0 F 01/22/25 19:25 Pulse Rate 73 01/22/25 19:25 Respiratory Rate 17 01/22/25 19:25 Blood Pressure 143/88 H 01/22/25 19:25 Pulse Oximetry (%) 99 01/22/25 19:25 Oxygen Delivery Method Room Air 01/22/25 19:25 Discharge Plan Plan Patient Disposition: Elopement Prescriptions/Referrals Prescriptions/Med Rec: No Action cetirizine-pseudoephedrine [Zyrtec-D] 5-120 mg tablet extended release 12 hr 1 tab PO BID PRN (Reason: sinus symptoms) Qty: 14 0RF diphenhydramine HCl [Benadryl] 25 mg capsule 25 mg PO Q8H PRN (Reason: allergic symptoms) Qty: 30 0RF ibuprofen 600 mg tablet 600 mg PO QID PRN (Reason: pain) Qty: 20 0RF ciprofloxacin HCl [Cipro] 500 mg tablet 500 mg PO BID Qty: 14 0RF metronidazole 500 mg tablet 500 mg PO BID Qty: 14 0RF dicyclomine 20 mg tablet 20 mg PO BID Qty: 20 0RF hydroxyzine HCl 50 mg tablet 50 mg PO Q6H PRN (Reason: anxiety) Qty: 20 0RF amoxicillin-pot clavulanate 875-125 mg tablet 1 tab PO BID Qty: 14 0RF ibuprofen 600 mg tablet 600 mg PO Q8H PRN (Reason: pain) Qty: 30 0RF acetaminophen 325 mg tablet 650 mg PO TID PRN (Reason: pain) Qty: 30 0RF lidocaine [Lidoderm] 5 % adhesive patch,medicated 2 patch topical QDAY PRN (Reason: pain) Qty: 30 0RF Rx Instructions: leave on most painful area for up to 12 hrs ibuprofen 600 mg tablet 600 mg PO Q8H PRN (Reason: pain) Qty: 14 0RF tizanidine 4 mg tablet 4 mg PO BID PRN (Reason: muscle spasticity) Qty: 20 0RF acetaminophen 500 mg tablet 500 mg PO Q6H PRN (Reason: pain) Qty: 30 0RF hydroxyzine pamoate 25 mg capsule 25 mg PO BID PRN (Reason: anxiety) Qty: 10 0RF albuterol sulfate [Ventolin HFA] 90 mcg/actuation HFA aerosol inhaler 1 inh inhalation Q4H PRN (Reason: shortness of breath or wheezing) Qty: 8.5 0RF amoxicillin-pot clavulanate 875-125 mg tablet 1 tab PO BID Qty: 20 0RF lidocaine HCl [Lidocaine Viscous] 2 % solution 10 ml PO Q4H PRN (Reason: sore throat) Qty: 100 0RF ondansetron 4 mg tablet,disintegrating 4 mg PO Q8H PRN (Reason: nausea and vomiting) Qty: 10 0RF Sudafed PE Head Congestn-Pain 200-10 mg tablet 1 tab PO Q4H PRN (Reason: sinus symptoms) Qty: 20 0RF cyclobenzaprine 7.5 mg tablet 7.5 mg PO TID PRN (Reason: muscle spasm) Qty: 30 0RF hydrocodone-acetaminophen 5-325 mg tablet 1 tab PO BID MDD 10 PRN (Reason: pain) Qty: 14 0RF sumatriptan succinate [Imitrex] 25 mg tablet 25 mg PO Q2H PRN (Reason: migraine headache) Qty: 10 0RF Rx Instructions: do not exceed 8 doses per 24 hrs ondansetron 4 mg tablet,disintegrating 4 mg PO Q8H PRN (Reason: nausea and vomiting) Qty: 20 0RF ibuprofen 800 mg tablet 800 mg PO Q8H PRN (Reason: pain) Qty: 20 0RF dicyclomine 20 mg tablet 20 mg PO QID PRN (Reason: abdominal pain) Qty: 30 0RF cephalexin 500 mg capsule 500 mg PO QID Qty: 40 0RF ondansetron 4 mg tablet,disintegrating 4 mg PO Q8H PRN (Reason: nausea and vomiting) Qty: 20 0RF albuterol sulfate [Ventolin HFA] 90 mcg/actuation HFA aerosol inhaler 2 puff inhalation Q6H PRN (Reason: shortness of breath or wheezing) Qty: 8.5 0RF triamcinolone acetonide 0.025 % ointment 1 applic topical BID Qty: 15 0RF cephalexin 500 mg capsule 500 mg PO QID Qty: 28 0RF Referrals: No Primary/Family,Physician [Primary Care Provider] - In 1 week Problem List Clinical Impression: Pain Patient/Caregiver Discharge Instructions Print Language: Maltese MDM Narrative MDM hospital course (for use when minimal MDM required): This section includes all my notes and documentations, including HPI, PE, and ED course. Boston Lara MD HPI: 39 y/o male with Hx of Methamphetamine abuse presents with pain. He has trouble localizing the pain. Has trouble describing the quality and quantity of the pain. In describing exacerbating factors or relieving factors. No other complaints. ROS: All negative except as documented in HPI. Physical Exam: General: Alert. No acute distress. Eyes: Conjunctivae and lids clear. EOMI. PERRL. ENT: No nasal congestion. Neck: Supple. Heart: RRR. Lungs: No respiratory distress. Good air movement. No rhonchi, wheezing, rales. Chest: No tenderness. Abdomen: Soft and nontender. Normal bowel sounds. No distension. No rebound or guarding. Back: No tenderness. Legs: No clubbing, cyanosis, edema. Skin: Warm and dry. Neuro: Alert and oriented X 3. Cranial Nerves II-XII grossly intact. No peripheral motor deficits. Musculoskeletal: All major joints and bones are not tender with no limited ROM. I reviewed all diagnostic test results: Blood tests unremarkable. Urine specimen not given. When I looked for the patient to discuss blood tests, I was told the patient eloped. Boston Lara MD Clinical Information Provided by: patient Medical Records reviewed [facility] Medical Records additional comments: Reviewed prior ED records from Today. Patient was seen for Chronic pain. Meds/Rx considered, not ordered None Labs/Rad/Tests considered, not ordered None Chronic Illness/Social Conditions which may negatively complicate care or outcome(s)-explain: ETOH/drugs/substance abuse EKG EKG not done Labs Labs: interpreted by me and see narrative above Lab(s) Interpretation(s): I reviewed all diagnostic test results: Blood tests unremarkable. Urine specimen pending. Imaging Imaging interpretation: none Medication Administration(s) none Diagnosis Differential Diagnosis ED Complaint MDM: Chronic pain, Firbomyalgia, Sciatica, Plantar fasciitis Diagnoses ruled out and/or further discussions: When I looked for the patient to discuss blood tests, I was told the patient eloped. Boston Lara MD
[2025-01-22 19:25] VITALS: BP 143/88; PULSE 73; RESP 17; TEMP 36.7; O2SAT 99
[2025-01-22 19:59] LABS: Sed Rate (ESR) 10 mm/hr (0-15)
[2025-01-22 20:01] LABS: Basophils # (Auto) 0.0 Thou/mm3 (0.0-0.2); Basophils % (Auto) 0 % (0-2.5); Eosinophils # (Auto) 0.0 Thou/mm3 (0.0-0.5); Eosinophils % (Auto) 0 % (0-10); Hematocrit 46.5 % (41.0-53.0); Hemoglobin 15.9 g/dL (13.5-16.0); Immature Granulocytes Auto 0.03 Thou/mm3 (0.00-0.00); Lymphocytes # (Auto) 2.2 Thou/mm3 (1.0-4.8); Lymphocytes % (Auto) 23 % (10-50); Mean Corpuscular HGB Conc 34.2 g/dl (31.0-37.0); Mean Corpuscular Hemoglobin 31.0 pg (25.0-35.0); Mean Corpuscular Volume 91 fL (80-100); Monocytes # (Auto) 0.7 Thou/mm3 (0.0-0.8); Monocytes % (Auto) 8 % (0-12); Neutrophils # (Auto) 6.4 Thou/mm3 (1.8-7.7); Neutrophils % (Auto) 68 % (37-80); Nucleated Red Blood Cell # 0.00 Thou/mm3 (0.00-0.00); Nucleated Red Blood Cell % 0 /100 WBC (0); Platelet Count 340 Thou/mm3 (140-440); RDW Standard Deviation 41.3 fL (35.1-43.9); Red Blood Count 5.13 Miln/mm3 (4.50-5.90); White Blood Count 9.3 Thou/mm3 (3.8-10.6)
[2025-01-22 20:15] LABS: Alanine Aminotransferase 11 U/L (10-49); Albumin, Serum 5.5 gm/dL (3.5-5.0); Albumin/Globulin Ratio 1.9 (1.2-2.2); Alcohol, Blood Medical < 3.0 mg/dL (0-10.0); Alkaline Phosphatase 77 U/L (46-116); Anion Gap 11 (7-16); Aspartate Amino Transferase 20 U/L (0-34); BUN/Creatinine Ratio 5 Ratio (12-20); Bilirubin,Direct 0.2 mg/dL (0.0-0.3); Bilirubin,Total 0.6 mg/dL (0.3-1.2); Blood Urea Nitrogen 8 mg/dL (9-23); Calcium 10.6 mg/dL (8.3-10.6); Calcium (Corrected) 10.6 mg/dL (8.5-10.1); Carbon Dioxide 26.2 mMol/L (20.0-31.0); Chloride 105 mMol/L (98-107); Creatine Kinase 121 U/L (34-171); Creatinine (Component) 1.6 mg/dL (0.6-1.3); Globulin 2.9 gm/dL (2.3-3.5); Glucose 110 mg/dL (74-106); Magnesium 1.9 mg/dL (1.6-2.6); Osmolality,Calculated 282 (275-295); Potassium 3.8 mMol/L (3.4-5.1); Sodium 142 mMol/L (136-145); Total Protein 8.4 gm/dL (5.7-8.2); eGFR 57 See Note
[2025-01-22 20:27] LABS: Procalcitonin 0.07 ng/ml (0.0-0.49)
--- NOTE | 2025-01-22 21:14 | PC.NURSE ---
I KEEP INFORMING PT THAT WE NEED URINE SAMPLE , PT IS NOT LISTENING, WENT OUTSIDE AND ABLE TO CALL TAXI BUT HE HAS NO MONEY TO PAY. NOW PT IS STAYING OUTSIDE ER.
--- NOTE | 2025-01-22 21:16 | PC.NURSE ---
Patient outside sitting in taxi cab, this law writer approached cab and asked what patient was doing. Patient stated he was leaving. public transit trolley driver stated patient had no money and was refusing to leave taxi. Asked patient to exit taxi and return to ED for remaining tests. Patient left taxi but left [facility] walking.
[2025-01-22 22:22] LABS: C-Reactive Protein < 0.5 mg/dL (0.0-0.9)
== END 2025-01-22 21:17 | disposition left against medical advice (07) ==
PROVIDERS: Emergency Provider Emergency Medicine
DX: R52 Pain, unspecified (principal); F15.10 Other stimulant abuse, uncomplicated; Z53.29 Procedure and treatment not carried out because of patient's decision for other reasons; F17.210 Nicotine dependence, cigarettes, uncomplicated
CPT/HCPCS: 36415; 80053; 80307; 80320; 82248; 82550; 83735; 84145; 85025; 85652; 86140; 99284; G0480

== ENCOUNTER 2025-01-24 15:18 | Emergency (ER) | payer MEDICAID, SELFPAY ==
[2025-01-24 15:25] VITALS: PULSE 62; RESP 18; O2SAT 98; BMI 21.1
[2025-01-24 15:37] VITALS: BP 171/118; PULSE 119; RESP 20; TEMP 37.3; O2SAT 98
--- NOTE | 2025-01-24 15:42 | PD.EDADULT ---
ED General RME/HPI General Chief complaint: Abdominal Pain Stated complaint: ABDOMINAL PAIN Time Seen by Provider: 01/24/25 15:28 Arrival date/time: 01/24/25 15:18 CC: Abdominal pain abdominal cramping HPI ongoing for the past 2 days. Was seen here 2 days ago for the same complaint was discharged home. Patient states she has taken the medicines prescribed without any relief. Patient denies any fever chills diarrhea constipation nausea or vomiting. Patient describes a burning sensation in his center abdomen chest and abdomen. Patient is mildly distracted. In some time and basis with answers. Denies any street drugs. No other medications taken. Related Data Previous Rx's ?Medication ?Instructions ?Recorded cetirizine 5 mg-pseudoephedrine ER 1 tab PO BID PRN sinus symptoms 08/30/21 120 mg tablet,extended #14 tabs release,12hr (Zyrtec-D) diphenhydramine HCl 25 mg capsule 25 mg PO Q8H PRN allergic symptoms 09/23/22 (Benadryl) #30 caps ibuprofen 600 mg tablet 600 mg PO QID PRN pain #20 tabs 09/23/22 ciprofloxacin HCl 500 mg tablet 500 mg PO BID #14 tabs 11/29/22 (Cipro) dicyclomine 20 mg tablet 20 mg PO BID #20 tabs 11/29/22 metronidazole 500 mg tablet 500 mg PO BID #14 tabs 11/29/22 cyclobenzaprine 7.5 mg tablet 7.5 mg PO TID PRN muscle spasm #30 12/03/22 tabs hydrocodone 5 mg-acetaminophen 325 1 tab PO BID PRN pain #14 tabs 01/16/23 mg tablet hydroxyzine HCl 50 mg tablet 50 mg PO Q6H PRN anxiety #20 tabs 01/18/24 amoxicillin 875 mg-potassium 1 tab PO BID #14 tabs 02/07/24 clavulanate 125 mg tablet acetaminophen 325 mg tablet 650 mg (2 x 325 mg) PO TID PRN 02/11/24 pain #30 tabs ibuprofen 600 mg tablet 600 mg PO Q8H PRN pain #30 tabs 02/11/24 ibuprofen 600 mg tablet 600 mg PO Q8H PRN pain #14 tabs 02/15/24 lidocaine 5 % topical patch 2 patch topical QDAY PRN pain #30 02/15/24 (Lidoderm) ea acetaminophen 500 mg tablet 500 mg PO Q6H PRN pain #30 tabs 09/15/24 tizanidine 4 mg tablet 4 mg PO BID PRN muscle spasticity 09/15/24 #20 tabs sumatriptan succinate 25 mg tablet 25 mg PO Q2H PRN migraine headache 10/08/24 (Imitrex) #10 tabs albuterol sulfate 90 mcg/actuation 1 inh inhalation Q4H PRN shortness 11/06/24 aerosol inhaler (Ventolin HFA) of breath or wheezing #8.5 grams hydroxyzine pamoate 25 mg capsule 25 mg PO BID PRN anxiety #10 caps 11/06/24 ibuprofen 800 mg tablet 800 mg PO Q8H PRN pain #20 tabs 12/21/24 ondansetron 4 mg disintegrating 4 mg PO Q8H PRN nausea and 12/21/24 tablet vomiting #20 tabs dicyclomine 20 mg tablet 20 mg PO QID PRN abdominal pain 12/27/24 #30 tabs cephalexin 500 mg capsule 500 mg PO QID #40 caps 12/28/24 albuterol sulfate 90 mcg/actuation 2 puff inhalation Q6H PRN 01/03/25 aerosol inhaler (Ventolin HFA) shortness of breath or wheezing #8.5 grams ondansetron 4 mg disintegrating 4 mg PO Q8H PRN nausea and 01/03/25 tablet vomiting #20 tabs amoxicillin 875 mg-potassium 1 tab PO BID #20 tabs 01/16/25 clavulanate 125 mg tablet ibuprofen 200 mg-phenylephrine HCl 1 tab PO Q4H PRN sinus symptoms 01/16/25 10 mg tablet (Sudafed PE Head #20 tabs Congestion-Pain) lidocaine HCl 2 % mucosal solution 10 ml PO Q4H PRN sore throat #100 01/16/25 (Lidocaine Viscous) mL ondansetron 4 mg disintegrating 4 mg PO Q8H PRN nausea and 01/16/25 tablet vomiting #10 tabs cephalexin 500 mg capsule 500 mg PO QID #28 caps 01/18/25 triamcinolone acetonide 0.025 % 1 applic topical BID #15 grams 01/18/25 topical ointment Allergies Allergy/AdvReac Type Severity Reaction Status Date / Time No Known Allergies Allergy Verified 01/24/25 15:27 Review of Systems Review of Systems Narrative Review of Systems: GEN: No fever, no chills, no weight loss EYES: No discharge, no visual changes, no pain HEENT: No ear pain, no congestion, no sore throat PULM: No shortness of breath, no cough, no congestion CV: No chest pain, no dyspnea on exertion, no palpitations GI: No nausea, no vomiting, no diarrhea, + pain, no constipation : No frequency, no urgency, no dysuria MUSC/SKEL: No joint pain, no back pain SKIN: No rash PSYCH: No hallucinations, no depression HEME/LYMPH: No easy bleeding or bruising tendencies NEURO: No weakness, no headache Past Medical History Past Medical History NEUROLOGIC: Negative Neurological Disorders or Seizures CARDIAC: Negative Cardiac Disorders or Congestive Heart Failure RESPIRATORY: Negative Chronic Obstructive Pulmonary Disease (COPD) or Asthma GASTROINTESTINAL: Negative Gastrointestinal Disorders GENITOURINARY: Negative Genitourinary Disorders or Renal Disease MUSCULOSKELETAL: Negative Musculoskeletal Disorders ENDOCRINE: Negative Endocrine Disorders, Diabetes Mellitus Type 1 or Diabetes Mellitus Type 2 HEMATOLOGIC: Negative Blood Disorders or Sickle Cell Disease PSYCHO/SOCIAL: Positive Recreational Drug Use OTHER HISTORY: Positive Chicken Pox; Negative Hospitalization, Blood Transfusions, Blood Transfusion Reaction, Anesthesia Reactions or Cancer Social History SMOKING STATUS: Never smoker SUBSTANCE USE: methamphetamine ED Exam Narrative Physical exam: [General: Not in any acute distress Head normocephalic HEENT: Within acceptable limits Neck is supple nontender Chest equal chest rise nontender to palpation Respiratory: Clear to auscultation no wheezes crackles or rubs CV: Rate rhythm is regular no murmurs rubs or clicks Abdomen is flat, soft nontender no masses positive bowel sounds all 4 quadrants Back: No CVA tenderness no spinous process tenderness from cervical spine thoracic and lumbar spine Skin: Intact no petechiae rash induration ulceration or crepitus Extremities: Moving all extremity against resistance cap refill less than 2 seconds neurosensory intact Neuro: Awake alert oriented x3 Glascow coma 15 no focal deficits] Course Quality Measures none Orders Category Date Time Status Saline [Insert IV] NOW Care 01/24/25 15:40 Completed CBC Stat Lab 01/24/25 15:47 Completed CMP [Comprehensive Metabolic Panel] Stat Lab 01/24/25 15:47 Completed Drug Screen,Urine Stat Lab 01/24/25 16:04 Completed Urinalysis Stat Lab 01/24/25 16:04 Completed Sodium Chloride 0.9% 1000 ml [Ns] 1,000 ml Med 01/24/25 15:41 Discontinued IV 999 mls/hr Vital Signs Vital signs: Vital Signs Temperature 99.2 F 01/24/25 15:37 Pulse Rate 119 H 01/24/25 15:37 Respiratory Rate 20 01/24/25 15:37 Blood Pressure 171/118 H 01/24/25 15:37 Pulse Oximetry (%) 98 01/24/25 15:37 Discharge Plan Plan Patient Disposition: Left Against Medical Advice Prescriptions/Referrals Prescriptions/Med Rec: No Action cetirizine-pseudoephedrine [Zyrtec-D] 5-120 mg tablet extended release 12 hr 1 tab PO BID PRN (Reason: sinus symptoms) Qty: 14 0RF diphenhydramine HCl [Benadryl] 25 mg capsule 25 mg PO Q8H PRN (Reason: allergic symptoms) Qty: 30 0RF ibuprofen 600 mg tablet 600 mg PO QID PRN (Reason: pain) Qty: 20 0RF ciprofloxacin HCl [Cipro] 500 mg tablet 500 mg PO BID Qty: 14 0RF metronidazole 500 mg tablet 500 mg PO BID Qty: 14 0RF dicyclomine 20 mg tablet 20 mg PO BID Qty: 20 0RF hydroxyzine HCl 50 mg tablet 50 mg PO Q6H PRN (Reason: anxiety) Qty: 20 0RF amoxicillin-pot clavulanate 875-125 mg tablet 1 tab PO BID Qty: 14 0RF ibuprofen 600 mg tablet 600 mg PO Q8H PRN (Reason: pain) Qty: 30 0RF acetaminophen 325 mg tablet 650 mg PO TID PRN (Reason: pain) Qty: 30 0RF lidocaine [Lidoderm] 5 % adhesive patch,medicated 2 patch topical QDAY PRN (Reason: pain) Qty: 30 0RF Rx Instructions: leave on most painful area for up to 12 hrs ibuprofen 600 mg tablet 600 mg PO Q8H PRN (Reason: pain) Qty: 14 0RF tizanidine 4 mg tablet 4 mg PO BID PRN (Reason: muscle spasticity) Qty: 20 0RF acetaminophen 500 mg tablet 500 mg PO Q6H PRN (Reason: pain) Qty: 30 0RF hydroxyzine pamoate 25 mg capsule 25 mg PO BID PRN (Reason: anxiety) Qty: 10 0RF albuterol sulfate [Ventolin HFA] 90 mcg/actuation HFA aerosol inhaler 1 inh inhalation Q4H PRN (Reason: shortness of breath or wheezing) Qty: 8.5 0RF amoxicillin-pot clavulanate 875-125 mg tablet 1 tab PO BID Qty: 20 0RF lidocaine HCl [Lidocaine Viscous] 2 % solution 10 ml PO Q4H PRN (Reason: sore throat) Qty: 100 0RF ondansetron 4 mg tablet,disintegrating 4 mg PO Q8H PRN (Reason: nausea and vomiting) Qty: 10 0RF Sudafed PE Head Congestn-Pain 200-10 mg tablet 1 tab PO Q4H PRN (Reason: sinus symptoms) Qty: 20 0RF cyclobenzaprine 7.5 mg tablet 7.5 mg PO TID PRN (Reason: muscle spasm) Qty: 30 0RF hydrocodone-acetaminophen 5-325 mg tablet 1 tab PO BID MDD 10 PRN (Reason: pain) Qty: 14 0RF sumatriptan succinate [Imitrex] 25 mg tablet 25 mg PO Q2H PRN (Reason: migraine headache) Qty: 10 0RF Rx Instructions: do not exceed 8 doses per 24 hrs ondansetron 4 mg tablet,disintegrating 4 mg PO Q8H PRN (Reason: nausea and vomiting) Qty: 20 0RF ibuprofen 800 mg tablet 800 mg PO Q8H PRN (Reason: pain) Qty: 20 0RF dicyclomine 20 mg tablet 20 mg PO QID PRN (Reason: abdominal pain) Qty: 30 0RF cephalexin 500 mg capsule 500 mg PO QID Qty: 40 0RF ondansetron 4 mg tablet,disintegrating 4 mg PO Q8H PRN (Reason: nausea and vomiting) Qty: 20 0RF albuterol sulfate [Ventolin HFA] 90 mcg/actuation HFA aerosol inhaler 2 puff inhalation Q6H PRN (Reason: shortness of breath or wheezing) Qty: 8.5 0RF triamcinolone acetonide 0.025 % ointment 1 applic topical BID Qty: 15 0RF cephalexin 500 mg capsule 500 mg PO QID Qty: 28 0RF Referrals: No Primary/Family,Physician [Primary Care Provider] - In 1 week Problem List Clinical Impression: Abdominal pain Patient/Caregiver Discharge Instructions Print Language: Luxembourgish MDM Clinical Information Provided by: patient Medical Records reviewed [facility] Medical Records additional comments: Review the medical record show the patient has a history of methamphetamine abuse. Meds/Rx considered, not ordered None Labs/Rad/Tests considered, not ordered None Medication Administration(s) Medication Administration History Discontinued Medications Sodium Chloride (Ns) 1,000 mls @ 999 mls/hr IV .Q1H1M ONE Stop: 01/24/25 16:41
[2025-01-24 16:07] LABS: Basophils # (Auto) 0.0 Thou/mm3 (0.0-0.2); Basophils % (Auto) 0 % (0-2.5); Eosinophils # (Auto) 0.0 Thou/mm3 (0.0-0.5); Eosinophils % (Auto) 1 % (0-10); Hematocrit 45.5 % (41.0-53.0); Hemoglobin 15.4 g/dL (13.5-16.0); Immature Granulocytes Auto 0.02 Thou/mm3 (0.00-0.00); Lymphocytes # (Auto) 2.1 Thou/mm3 (1.0-4.8); Lymphocytes % (Auto) 26 % (10-50); Mean Corpuscular HGB Conc 33.8 g/dl (31.0-37.0); Mean Corpuscular Hemoglobin 30.5 pg (25.0-35.0); Mean Corpuscular Volume 90 fL (80-100); Monocytes # (Auto) 0.5 Thou/mm3 (0.0-0.8); Monocytes % (Auto) 6 % (0-12); Neutrophils # (Auto) 5.4 Thou/mm3 (1.8-7.7); Neutrophils % (Auto) 67 % (37-80); Nucleated Red Blood Cell # 0.00 Thou/mm3 (0.00-0.00); Nucleated Red Blood Cell % 0 /100 WBC (0); Platelet Count 362 Thou/mm3 (140-440); RDW Standard Deviation 40.5 fL (35.1-43.9); Red Blood Count 5.05 Miln/mm3 (4.50-5.90); White Blood Count 8.0 Thou/mm3 (3.8-10.6)
[2025-01-24 16:10] LABS: Collection Type, Urine Clean Catch
[2025-01-24 16:27] LABS: Alanine Aminotransferase 12 U/L (10-49); Albumin, Serum 5.0 gm/dL (3.5-5.0); Albumin/Globulin Ratio 2.0 (1.2-2.2); Alkaline Phosphatase 71 U/L (46-116); Anion Gap 14 (7-16); Aspartate Amino Transferase 20 U/L (0-34); BUN/Creatinine Ratio 12 Ratio (12-20); Bilirubin,Total 0.7 mg/dL (0.3-1.2); Blood Urea Nitrogen 14 mg/dL (9-23); Calcium 10.3 mg/dL (8.3-10.6); Calcium (Corrected) 10.3 mg/dL (8.5-10.1); Carbon Dioxide 24.4 mMol/L (20.0-31.0); Chloride 105 mMol/L (98-107); Creatinine (Component) 1.2 mg/dL (0.6-1.3); Estimated Creatinine Clearance 73.0 mL/min (>60); Globulin 2.5 gm/dL (2.3-3.5); Glucose 82 mg/dL (74-106); Osmolality,Calculated 284 (275-295); Potassium 4.5 mMol/L (3.4-5.1); Sodium 143 mMol/L (136-145); Total Protein 7.5 gm/dL (5.7-8.2); eGFR > 60 See Note
[2025-01-24 16:30] LABS: Bacteria,Urine Rare; Bilirubin,Urine Negative (Negative); Blood,Urine Negative (Negative); Clarity,Urine Clear (Clear/Hazy); Color,Urine Yellow (Lt Yel-Yel); Glucose, Urine Negative (Negative); Ketones,Urine 2+ (Negative); Leukocyte Esterase,Urine Negative (Negative); Nitrite,Urine Negative (Negative); PH,Urine 6.0 (5.0-7.0); Protein,Urine 1+ (Neg - Trace); RBC,Urine 1 /hpf (0-3); Specific Gravity,Urine 1.031 (1.001-1.035); Squamous Epithelial Cell,Urine < 1 /hpf (0-5); Urobilinogen,Urine 2.0 mg/dL (0.0-1.0); WBC,Urine 2 /hpf (0-5)
[2025-01-24 16:41] LABS: Amphetamine/Methamp Scrn,U Positive (Negative); Barbiturate Screen,Urine Negative (Negative); Benzodiazepines Screen,Urine Negative (Negative); Benzoylecgonine Screen, Ur Negative (Negative); Fentanyl Screen,Urine Negative (Negative); Opiate Screen,Urine Negative (Negative); THC Screen,Urine Negative (Negative)
--- NOTE | 2025-01-24 17:06 | PC.NURSE ---
PATIENT STATES FEELS BETTER AND DID NOT WANT TO WAIT ANY LONGER, SIGNED OUT AMA. PATIENT ENCOURAGED TO RETURN IF SYMPTOMS WORSEN
== END 2025-01-24 17:07 | disposition left against medical advice (07) ==
LOC: SERX 17:04
PROVIDERS: Registered Nurse General Practice; Emergency Provider Emergency Medicine
DX: R10.9 Unspecified abdominal pain (principal); Z53.29 Procedure and treatment not carried out because of patient's decision for other reasons
CPT/HCPCS: 36415; 80053; 80307; 81001; 85025; 99283

== ENCOUNTER 2025-01-24 23:41 | Emergency (ER) | payer MEDICAID, SELFPAY ==
[2025-01-24 23:44] VITALS: PULSE 96; O2SAT 99
[2025-01-24 23:48] VITALS: BP 122/90; PULSE 100; RESP 17; TEMP 36.8; O2SAT 96
--- NOTE | 2025-01-24 23:48 | PD.EDRME ---
Rapid Medical Screening Exam RME Arrival date/time: 01/24/25 23:41 This is a case of 39-year-old male with history of anxiety and polysubstance abuse came in in the emergency room due to abdominal pain nausea vomiting for 1 day worsening of the symptoms this patient decided to start consulted in the emergency room patient have history of multiple visit here in the emergency room Chief Complaint: Abdominal Pain Time Seen by Provider: 01/24/25 23:48
[2025-01-25 00:12] LABS: Basophils # (Auto) 0.0 Thou/mm3 (0.0-0.2); Basophils % (Auto) 1 % (0-2.5); Eosinophils # (Auto) 0.1 Thou/mm3 (0.0-0.5); Eosinophils % (Auto) 1 % (0-10); Hematocrit 43.6 % (41.0-53.0); Hemoglobin 15.1 g/dL (13.5-16.0); Immature Granulocytes Auto 0.01 Thou/mm3 (0.00-0.00); Lymphocytes # (Auto) 2.9 Thou/mm3 (1.0-4.8); Lymphocytes % (Auto) 37 % (10-50); Mean Corpuscular HGB Conc 34.6 g/dl (31.0-37.0); Mean Corpuscular Hemoglobin 30.8 pg (25.0-35.0); Mean Corpuscular Volume 89 fL (80-100); Monocytes # (Auto) 0.6 Thou/mm3 (0.0-0.8); Monocytes % (Auto) 8 % (0-12); Neutrophils # (Auto) 4.1 Thou/mm3 (1.8-7.7); Neutrophils % (Auto) 54 % (37-80); Nucleated Red Blood Cell # 0.00 Thou/mm3 (0.00-0.00); Nucleated Red Blood Cell % 0 /100 WBC (0); Platelet Count 300 Thou/mm3 (140-440); RDW Standard Deviation 40.6 fL (35.1-43.9); Red Blood Count 4.90 Miln/mm3 (4.50-5.90); White Blood Count 7.7 Thou/mm3 (3.8-10.6)
[2025-01-25 00:16] LABS: Collection Type, Urine Clean Catch
[2025-01-25 00:24] LABS: Bacteria,Urine Rare; Bilirubin,Urine 1+ (Negative); Blood,Urine Negative (Negative); Clarity,Urine Clear (Clear/Hazy); Color,Urine Yellow (Lt Yel-Yel); Glucose, Urine Negative (Negative); Ketones,Urine 3+ (Negative); Leukocyte Esterase,Urine Negative (Negative); Nitrite,Urine Negative (Negative); PH,Urine 6.0 (5.0-7.0); Protein,Urine 1+ (Neg - Trace); RBC,Urine 8 /hpf (0-3); Specific Gravity,Urine 1.048 (1.001-1.035); Squamous Epithelial Cell,Urine < 1 /hpf (0-5); Urobilinogen,Urine 8.0 mg/dL (0.0-1.0); WBC,Urine 1 /hpf (0-5)
[2025-01-25 00:24] LABS: Alanine Aminotransferase 12 U/L (10-49); Albumin, Serum 4.8 gm/dL (3.5-5.0); Albumin/Globulin Ratio 2.1 (1.2-2.2); Alkaline Phosphatase 65 U/L (46-116); Amylase 75 U/L (30-118); Anion Gap 13 (7-16); Aspartate Amino Transferase 23 U/L (0-34); BUN/Creatinine Ratio 14 Ratio (12-20); Bilirubin,Total 0.8 mg/dL (0.3-1.2); Blood Urea Nitrogen 17 mg/dL (9-23); Calcium 9.9 mg/dL (8.3-10.6); Calcium (Corrected) 9.9 mg/dL (8.5-10.1); Carbon Dioxide 22.2 mMol/L (20.0-31.0); Chloride 105 mMol/L (98-107); Creatinine (Component) 1.2 mg/dL (0.6-1.3); Globulin 2.3 gm/dL (2.3-3.5); Glucose 80 mg/dL (74-106); Osmolality,Calculated 279 (275-295); Potassium 4.0 mMol/L (3.4-5.1); Sodium 140 mMol/L (136-145); Total Protein 7.1 gm/dL (5.7-8.2); eGFR > 60 See Note
--- NOTE | 2025-01-25 03:36 | EDNOTE_ITS ---
ED Back Injury Pain RME/HPI General Chief Complaint: Abdominal Pain Stated Complaint: ABD PAIN Time Seen by Provider: 01/24/25 23:48 Source: patient, RN notes reviewed and old records reviewed Arrival date/time: 01/24/25 23:41 Mode of arrival: ambulatory Limitations: no limitations RME / HPI RME / HPI Narrative: 39yom presents to ED for generalized back pain. This is patient's 14th visit this month for similar complaint. UDS positive for methamphetamines during earlier ED visit today. Denies other symptoms at this time. Related Data Previous Rx's ?Medication ?Instructions ?Recorded cetirizine 5 mg-pseudoephedrine ER 1 tab PO BID PRN si nus symptoms 08/30/21 120 mg tablet,extended #14 tabs release,12hr (Zyrtec-D) diphenhydramine HCl 25 mg capsule 25 mg PO Q8H PRN all ergic symptoms 09/23/22 (Benadryl) #30 caps ibuprofen 600 mg tablet 600 mg PO QID PRN pain #20 t abs 09/23/22 ciprofloxacin HCl 500 mg tablet 500 mg PO BID #14 tabs 11/29/22 (Cipro) dicyclomine 20 mg tablet 20 mg PO BID #20 tabs metronidazole 500 mg tablet 500 mg PO BID #14 tabs cyclobenzaprine 7.5 mg tablet 7.5 mg PO TID PRN muscle spasm #30 12/03/22 tabs hydrocodone 5 mg-acetaminophen 325 1 tab PO BID PRN pa in #14 tabs 01/16/23 mg tablet hydroxyzine HCl 50 mg tablet 50 mg PO Q6H PRN anxiety #20 tabs 01/18/24 amoxicillin 875 mg-potassium 1 tab PO BID #14 tabs 09/25 clavulanate 125 mg tablet acetaminophen 325 mg tablet 650 mg (2 x 325 mg) PO TID PRN 02/11/24 pain #30 tabs ibuprofen 600 mg tablet 600 mg PO Q8H PRN pain #30 t abs 02/11/24 ibuprofen 600 mg tablet 600 mg PO Q8H PRN pain #14 t abs 02/15/24 lidocaine 5 % topical patch 2 patch topical QDAY PRN p ain #30 02/15/24 (Lidoderm) ea acetaminophen 500 mg tablet 500 mg PO Q6H PRN pain #30 tabs 09/15/24 tizanidine 4 mg tablet 4 mg PO BID PRN muscle spast icity 09/15/24 #20 tabs sumatriptan succinate 25 mg tablet 25 mg PO Q2H PRN mi graine headache 10/08/24 (Imitrex) #10 tabs albuterol sulfate 90 mcg/actuation 1 inh inhalation Q4 H PRN shortness 11/06/24 aerosol inhaler (Ventolin HFA) of breath or wheezing # 8.5 grams hydroxyzine pamoate 25 mg capsule 25 mg PO BID PRN anx iety #10 caps 11/06/24 ibuprofen 800 mg tablet 800 mg PO Q8H PRN pain #20 t abs 12/21/24 ondansetron 4 mg disintegrating 4 mg PO Q8H PRN nausea and 12/21/24 tablet vomiting #20 tabs dicyclomine 20 mg tablet 20 mg PO QID PRN abdominal p ain 12/27/24 #30 tabs cephalexin 500 mg capsule 500 mg PO QID #40 caps 12/28 albuterol sulfate 90 mcg/actuation 2 puff inhalation Q 6H PRN 01/03/25 aerosol inhaler (Ventolin HFA) shortness of breath or wheezing #8.5 grams ondansetron 4 mg disintegrating 4 mg PO Q8H PRN nausea and 01/03/25 tablet vomiting #20 tabs amoxicillin 875 mg-potassium 1 tab PO BID #20 tabs clavulanate 125 mg tablet ibuprofen 200 mg-phenylephrine HCl 1 tab PO Q4H PRN si nus symptoms 01/16/25 10 mg tablet (Sudafed PE Head #20 tabs Congestion-Pain) lidocaine HCl 2 % mucosal solution 10 ml PO Q4H PRN so re throat #100 01/16/25 (Lidocaine Viscous) mL ondansetron 4 mg disintegrating 4 mg PO Q8H PRN nausea and 01/16/25 tablet vomiting #10 tabs cephalexin 500 mg capsule 500 mg PO QID #28 caps 01/18 triamcinolone acetonide 0.025 % 1 applic topical BID # 15 grams 01/18/25 topical ointment Allergies Allergy/AdvReac Type Severity Reaction Status Date / Time No Known Allergies Allergy Verified 01/24/25 23:42 Review of Systems Review of Systems Systems Reviewed: All systems reviewed, normal except as documented Musculoskeletal Musculoskeletal: Reports back pain Past Medical History Past Medical History PSYCHO/SOCIAL: Positive Recreational Drug Use Social History SUBSTANCE USE: methamphetamine ED Exam General Limitations: Present no limitations General appearance: Present alert, in no apparent distress and other (Poor hygiene) Head Head exam: Present atraumatic and normocephalic Eye Eye exam: Present normal appearance, PERRL and EOMI ENT ENT exam: Present normal exam and mucous membranes moist Neck Neck exam: Present normal inspection and full ROM Chest Chest inspection: Present normal inspection and symmetric chest wall rise Respiratory Respiratory exam: Present normal lung sounds bilaterally; Absent respiratory distress Cardiovascular Cardiovascular exam: Present regular rate and normal rhythm Abdominal Exam Abdominal exam: Present soft; Absent distention or tenderness Extremities Exam Extremities exam: Present full ROM; Absent tenderness or pedal edema Back Exam Back exam: Absent CVA tenderness (R) or CVA tenderness (L) Neurological Exam Neurological exam: Present alert; Absent motor sensory deficit Psychiatric Psychiatric exam: Absent homicidal ideation or suicidal ideation Skin Skin exam: Present warm, dry and intact Course Quality Measures none Orders Category Date Time Status Amylase Stat Lab 01/24/25 23:48 Completed CBC Stat Lab 01/24/25 23:48 Completed Comprehensive Metabolic Panel Stat Lab 01/24/25 23:48 Completed Urinalysis Stat Lab 01/25/25 00:09 Completed Ibuprofen Tab [Motrin Tab] Med 01/25/25 04:29 Discontinued 600 mg PO X1 ONE Vital Signs Vital signs: Vital Signs Temperature 98.2 F 01/24/25 23:48 Pulse Rate 100 01/24/25 23:48 Respiratory Rate 17 01/24/25 23:48 Blood Pressure 122/90 H 01/24/25 23:48 Pulse Oximetry (%) 96 01/24/25 23:48 Oxygen Delivery Method Room Air 01/24/25 23:48 Back Pain / Injury MDM Narrative MDM Narrative:: 39yom presents to ED for generalized back pain. This is patient's 14th visit this month for similar complaint. UDS positive for methamphetamines during earlier ED visit today. Denies other symptoms at this time. Patient has been sleeping in the waiting room for hours. No vomiting observed during ED stay. ED workup reassuring. Encourage adequate fluids, ibuprofen/tylenol prn pain. Stable for dc, RTED precautions given. Patient data External records reviewed:: [facility] previous records (01/24/2025 ED visit for abdominal pain) Clinical information provided by:: patient Social determinants that could affect healthcare access:: substance use Patient has the following chronic illnesses:: Recreational drug use How is presenting disease/condition affected by chronic disease/condition?: exacerbated by Evaluation data The following diagnostics were reviewed and interpreted by me:: lab results Lab and/or radiology exams considered but not ordered:: L-spine x-rays: History of chronic back pain, no recent fall or injury Interpretation Summary: No leukocytosis No anemia No TENISHA LFTs and amylase wnl Medications / Prescriptions Medications or Prescriptions considered but not ordered:: No antibiotics recommended at this time Medication administrations:: Medication Administration History Discontinued Medications Ibuprofen (Ibuprofen Tab 600 Mg Tablet) 600 mg PO X1 ONE Stop: 01/25/25 04:30 Last Admin: 01/25/25 04:35 Dose: 600 mg Documented By: CVL Above medication administered in ED Consultations Consultation(s) initiated? (list below): No Diagnosis Differential diagnosis back pain/injury: lumbar radiculopathy, sciatica, strain of lumbar region, renal colic and pyelonephritis Most likely diagnosis given after review of the tests above:: Back pain Admission Indicated Admission indicated?: not indicated Admission Request Was there a request for admission?: No Disposition Plan Disposition Plan: Discharge Discharge Attestation Discharge Attestation: The patient and all family members were given an opportunity to ask questions and understood the discharge instructions. Discharge instructions specifically effects, indications for sooner follow up or return to the emergency department, and the expected course of current diagnosis. Patient condition: Stable Discharge Plan Plan Patient Disposition: HOME (Self Care) Patient condition on transfer: Stable Prescriptions/Referrals Prescriptions/Med Rec: No Action cetirizine-pseudoephedrine [Zyrtec-D] 5-120 mg tablet extended release 12 hr 1 tab PO BID PRN (Reason: sinus symptoms) Qty: 14 0RF diphenhydramine HCl [Benadryl] 25 mg capsule 25 mg PO Q8H PRN (Reason: allergic symptoms) Qty: 30 0RF ibuprofen 600 mg tablet 600 mg PO QID PRN (Reason: pain) Qty: 20 0RF ciprofloxacin HCl [Cipro] 500 mg tablet 500 mg PO BID Qty: 14 0RF metronidazole 500 mg tablet 500 mg PO BID Qty: 14 0RF dicyclomine 20 mg tablet 20 mg PO BID Qty: 20 0RF hydroxyzine HCl 50 mg tablet 50 mg PO Q6H PRN (Reason: anxiety) Qty: 20 0RF amoxicillin-pot clavulanate 875-125 mg tablet 1 tab PO BID Qty: 14 0RF ibuprofen 600 mg tablet 600 mg PO Q8H PRN (Reason: pain) Qty: 30 0RF acetaminophen 325 mg tablet 650 mg PO TID PRN (Reason: pain) Qty: 30 0RF lidocaine [Lidoderm] 5 % adhesive patch,medicated 2 patch topical QDAY PRN (Reason: pain) Qty: 30 0RF Rx Instructions: leave on most painful area for up to 12 hrs ibuprofen 600 mg tablet 600 mg PO Q8H PRN (Reason: pain) Qty: 14 0RF tizanidine 4 mg tablet 4 mg PO BID PRN (Reason: muscle spasticity) Qty: 20 0RF acetaminophen 500 mg tablet 500 mg PO Q6H PRN (Reason: pain) Qty: 30 0RF hydroxyzine pamoate 25 mg capsule 25 mg PO BID PRN (Reason: anxiety) Qty: 10 0RF albuterol sulfate [Ventolin HFA] 90 mcg/actuation HFA aerosol inhaler 1 inh inhalation Q4H PRN (Reason: shortness of breath or wheezing) Qty: 8.5 0RF amoxicillin-pot clavulanate 875-125 mg tablet 1 tab PO BID Qty: 20 0RF lidocaine HCl [Lidocaine Viscous] 2 % solution 10 ml PO Q4H PRN (Reason: sore throat) Qty: 100 0RF ondansetron 4 mg tablet,disintegrating 4 mg PO Q8H PRN (Reason: nausea and vomiting) Qty: 10 0RF Sudafed PE Head Congestn-Pain 200-10 mg tablet 1 tab PO Q4H PRN (Reason: sinus symptoms) Qty: 20 0RF cyclobenzaprine 7.5 mg tablet 7.5 mg PO TID PRN (Reason: muscle spasm) Qty: 30 0RF hydrocodone-acetaminophen 5-325 mg tablet 1 tab PO BID MDD 10 PRN (Reason: pain) Qty: 14 0RF sumatriptan succinate [Imitrex] 25 mg tablet 25 mg PO Q2H PRN (Reason: migraine headache) Qty: 10 0RF Rx Instructions: do not exceed 8 doses per 24 hrs ondansetron 4 mg tablet,disintegrating 4 mg PO Q8H PRN (Reason: nausea and vomiting) Qty: 20 0RF ibuprofen 800 mg tablet 800 mg PO Q8H PRN (Reason: pain) Qty: 20 0RF dicyclomine 20 mg tablet 20 mg PO QID PRN (Reason: abdominal pain) Qty: 30 0RF cephalexin 500 mg capsule 500 mg PO QID Qty: 40 0RF ondansetron 4 mg tablet,disintegrating 4 mg PO Q8H PRN (Reason: nausea and vomiting) Qty: 20 0RF albuterol sulfate [Ventolin HFA] 90 mcg/actuation HFA aerosol inhaler 2 puff inhalation Q6H PRN (Reason: shortness of breath or wheezing) Qty: 8.5 0RF triamcinolone acetonide 0.025 % ointment 1 applic topical BID Qty: 15 0RF cephalexin 500 mg capsule 500 mg PO QID Qty: 28 0RF Referrals: Michael Rudolph MD [Primary Care Provider, Family Practice] - In 1 week Problem List Clinical Impression: Back pain, Methamphetamine abuse Patient/Caregiver Discharge Instructions Education Materials: ED Back Pain (Acute or Chronic) Print Language: Amharic Stand Alone Forms: Selin Award Info., Patient Portal Info Letter PA/LAND MANAGER Supervising Physician PA/LAND MANAGER Supervising Physician: Walter
[2025-01-25] MEDS: IBUPROFEN TAB 600 MG TABLET PO (04:35)
[2025-01-25 06:28] VITALS: RESP 14
== END 2025-01-25 06:29 | disposition home or self-care (01) ==
PROVIDERS: Nurse Practitioner Family; Emergency Provider Emergency Medicine; PCP Family Medicine
DX: M54.9 Dorsalgia, unspecified (principal); F15.10 Other stimulant abuse, uncomplicated
CPT/HCPCS: 36415; 80053; 81001; 82150; 85025; 99283; A9270

== ENCOUNTER 2025-01-30 16:54 | Emergency (ER) | payer MEDICAID, SELFPAY ==
[2025-01-30 17:11] VITALS: BP 170/118; BP 171/122; PULSE 96; RESP 16; TEMP 36.9; O2SAT 99
--- NOTE | 2025-01-30 17:29 | EDNOTE_ITS ---
ED General RME/HPI General Chief complaint: Abdominal Pain Stated complaint: ABD PAIN Time Seen by Provider: 01/30/25 17:28 Arrival date/time: 01/30/25 16:54 CC: Lower center abdominal pain with diarrhea HPI ongoing for 24 hours. Patient states he is pain is a 5 to a 6 on a 10 scale. Denies any painful urination or bloody urination. Patient is well-known to us for multiple visits for wide variety complaints including methamphetamine abuse. Denies any chest pain shortness of breath or difficulty breathing. Hypertension on initial intake is noted. Related Data Previous Rx's ?Medication ?Instructions ?Recorded cetirizine 5 mg-pseudoephedrine ER 1 tab PO BID PRN si nus symptoms 08/30/21 120 mg tablet,extended #14 tabs release,12hr (Zyrtec-D) diphenhydramine HCl 25 mg capsule 25 mg PO Q8H PRN all ergic symptoms 09/23/22 (Benadryl) #30 caps ibuprofen 600 mg tablet 600 mg PO QID PRN pain #20 t abs 09/23/22 ciprofloxacin HCl 500 mg tablet 500 mg PO BID #14 tabs 11/29/22 (Cipro) dicyclomine 20 mg tablet 20 mg PO BID #20 tabs metronidazole 500 mg tablet 500 mg PO BID #14 tabs cyclobenzaprine 7.5 mg tablet 7.5 mg PO TID PRN muscle spasm #30 12/03/22 tabs hydrocodone 5 mg-acetaminophen 325 1 tab PO BID PRN pa in #14 tabs 01/16/23 mg tablet hydroxyzine HCl 50 mg tablet 50 mg PO Q6H PRN anxiety #20 tabs 01/18/24 amoxicillin 875 mg-potassium 1 tab PO BID #14 tabs 09/25 clavulanate 125 mg tablet acetaminophen 325 mg tablet 650 mg (2 x 325 mg) PO TID PRN 02/11/24 pain #30 tabs ibuprofen 600 mg tablet 600 mg PO Q8H PRN pain #30 t abs 02/11/24 ibuprofen 600 mg tablet 600 mg PO Q8H PRN pain #14 t abs 02/15/24 lidocaine 5 % topical patch 2 patch topical QDAY PRN p ain #30 02/15/24 (Lidoderm) ea acetaminophen 500 mg tablet 500 mg PO Q6H PRN pain #30 tabs 09/15/24 tizanidine 4 mg tablet 4 mg PO BID PRN muscle spast icity 09/15/24 #20 tabs sumatriptan succinate 25 mg tablet 25 mg PO Q2H PRN mi graine headache 10/08/24 (Imitrex) #10 tabs albuterol sulfate 90 mcg/actuation 1 inh inhalation Q4 H PRN shortness 11/06/24 aerosol inhaler (Ventolin HFA) of breath or wheezing # 8.5 grams hydroxyzine pamoate 25 mg capsule 25 mg PO BID PRN anx iety #10 caps 11/06/24 ibuprofen 800 mg tablet 800 mg PO Q8H PRN pain #20 t abs 12/21/24 ondansetron 4 mg disintegrating 4 mg PO Q8H PRN nausea and 12/21/24 tablet vomiting #20 tabs dicyclomine 20 mg tablet 20 mg PO QID PRN abdominal p ain 12/27/24 #30 tabs cephalexin 500 mg capsule 500 mg PO QID #40 caps 12/28 albuterol sulfate 90 mcg/actuation 2 puff inhalation Q 6H PRN 01/03/25 aerosol inhaler (Ventolin HFA) shortness of breath or wheezing #8.5 grams ondansetron 4 mg disintegrating 4 mg PO Q8H PRN nausea and 01/03/25 tablet vomiting #20 tabs amoxicillin 875 mg-potassium 1 tab PO BID #20 tabs clavulanate 125 mg tablet ibuprofen 200 mg-phenylephrine HCl 1 tab PO Q4H PRN si nus symptoms 01/16/25 10 mg tablet (Sudafed PE Head #20 tabs Congestion-Pain) lidocaine HCl 2 % mucosal solution 10 ml PO Q4H PRN so re throat #100 01/16/25 (Lidocaine Viscous) mL ondansetron 4 mg disintegrating 4 mg PO Q8H PRN nausea and 01/16/25 tablet vomiting #10 tabs cephalexin 500 mg capsule 500 mg PO QID #28 caps 01/18 triamcinolone acetonide 0.025 % 1 applic topical BID # 15 grams 01/18/25 topical ointment dicyclomine 20 mg tablet 20 mg PO BID #6 tabs 5 Allergies Allergy/AdvReac Type Severity Reaction Status Date / Time No Known Allergies Allergy Verified 01/30/25 16:56 Review of Systems Review of Systems Narrative Review of Systems: GEN: No fever, no chills, no weight loss EYES: No discharge, no visual changes, no pain HEENT: No ear pain, no congestion, no sore throat PULM: No shortness of breath, no cough, no congestion CV: No chest pain, no dyspnea on exertion, no palpitations GI: No nausea, no vomiting, no diarrhea, no pain, no constipation : No frequency, no urgency, no dysuria MUSC/SKEL: No joint pain, no back pain SKIN: No rash PSYCH: No hallucinations, no depression HEME/LYMPH: No easy bleeding or bruising tendencies NEURO: No weakness, no headache Past Medical History Past Medical History NEUROLOGIC: Negative Neurological Disorders or Seizures CARDIAC: Negative Cardiac Disorders or Congestive Heart Failure RESPIRATORY: Negative Chronic Obstructive Pulmonary Disease (COPD) or Asthma GASTROINTESTINAL: Negative Gastrointestinal Disorders GENITOURINARY: Negative Genitourinary Disorders or Renal Disease MUSCULOSKELETAL: Negative Musculoskeletal Disorders ENDOCRINE: Negative Endocrine Disorders, Diabetes Mellitus Type 1 or Diabetes Mellitus Type 2 HEMATOLOGIC: Negative Blood Disorders or Sickle Cell Disease PSYCHO/SOCIAL: Positive Recreational Drug Use OTHER HISTORY: Positive Chicken Pox; Negative Hospitalization, Blood Transfusions, Blood Transfusion Reaction, Anesthesia Reactions or Cancer Social History SMOKING STATUS: Current every day smoker SUBSTANCE USE: methamphetamine ED Exam Narrative Physical exam: [General: Anxious but not in any acute distress Head normocephalic HEENT: Within acceptable limits Neck is supple nontender Chest equal chest rise nontender to palpation Respiratory: Clear to auscultation no wheezes crackles or rubs CV: Rate rhythm is regular no murmurs rubs or clicks Abdomen is soft nontender no masses positive bowel sounds all 4 quadrants Back: No CVA tenderness no spinous process tenderness from cervical spine thoracic and lumbar spine Skin: Intact no petechiae rash induration ulceration or crepitus Extremities: Moving all extremity against resistance cap refill less than 2 sec onds neurosensory intact Neuro: Awake alert oriented x3 Glascow coma 15 no focal deficits] Course Quality Measures none Orders Category Date Time Status cloNIDine HCL [Catapres] Med 01/30/25 17:33 Discontinued 0.1 mg PO X1 ONE hydrALAZINE HCL [Apresoline] Med 01/30/25 17:33 Discontinued 25 mg PO X1 ONE Vital Signs Vital signs: Vital Signs Temperature 98.5 F 01/30/25 17:11 Pulse Rate 96 01/30/25 17:11 Respiratory Rate 16 01/30/25 17:11 Blood Pressure 170/118 H 01/30/25 17:11 Pulse Oximetry (%) 99 01/30/25 17:11 Oxygen Delivery Method Room Air 01/30/25 17:11 Discharge Plan Plan Patient Disposition: HOME (Self Care) Patient condition on transfer: Stable Prescriptions/Referrals Prescriptions/Med Rec: New dicyclomine 20 mg tablet 20 mg PO BID Qty: 6 0RF No Action cetirizine-pseudoephedrine [Zyrtec-D] 5-120 mg tablet extended release 12 hr 1 tab PO BID PRN (Reason: sinus symptoms) Qty: 14 0RF diphenhydramine HCl [Benadryl] 25 mg capsule 25 mg PO Q8H PRN (Reason: allergic symptoms) Qty: 30 0RF ibuprofen 600 mg tablet 600 mg PO QID PRN (Reason: pain) Qty: 20 0RF ciprofloxacin HCl [Cipro] 500 mg tablet 500 mg PO BID Qty: 14 0RF metronidazole 500 mg tablet 500 mg PO BID Qty: 14 0RF dicyclomine 20 mg tablet 20 mg PO BID Qty: 20 0RF hydroxyzine HCl 50 mg tablet 50 mg PO Q6H PRN (Reason: anxiety) Qty: 20 0RF amoxicillin-pot clavulanate 875-125 mg tablet 1 tab PO BID Qty: 14 0RF ibuprofen 600 mg tablet 600 mg PO Q8H PRN (Reason: pain) Qty: 30 0RF acetaminophen 325 mg tablet 650 mg PO TID PRN (Reason: pain) Qty: 30 0RF lidocaine [Lidoderm] 5 % adhesive patch,medicated 2 patch topical QDAY PRN (Reason: pain) Qty: 30 0RF Rx Instructions: leave on most painful area for up to 12 hrs ibuprofen 600 mg tablet 600 mg PO Q8H PRN (Reason: pain) Qty: 14 0RF tizanidine 4 mg tablet 4 mg PO BID PRN (Reason: muscle spasticity) Qty: 20 0RF acetaminophen 500 mg tablet 500 mg PO Q6H PRN (Reason: pain) Qty: 30 0RF hydroxyzine pamoate 25 mg capsule 25 mg PO BID PRN (Reason: anxiety) Qty: 10 0RF albuterol sulfate [Ventolin HFA] 90 mcg/actuation HFA aerosol inhaler 1 inh inhalation Q4H PRN (Reason: shortness of breath or wheezing) Qty: 8.5 0RF amoxicillin-pot clavulanate 875-125 mg tablet 1 tab PO BID Qty: 20 0RF lidocaine HCl [Lidocaine Viscous] 2 % solution 10 ml PO Q4H PRN (Reason: sore throat) Qty: 100 0RF ondansetron 4 mg tablet,disintegrating 4 mg PO Q8H PRN (Reason: nausea and vomiting) Qty: 10 0RF Sudafed PE Head Congestn-Pain 200-10 mg tablet 1 tab PO Q4H PRN (Reason: sinus symptoms) Qty: 20 0RF cyclobenzaprine 7.5 mg tablet 7.5 mg PO TID PRN (Reason: muscle spasm) Qty: 30 0RF hydrocodone-acetaminophen 5-325 mg tablet 1 tab PO BID MDD 10 PRN (Reason: pain) Qty: 14 0RF sumatriptan succinate [Imitrex] 25 mg tablet 25 mg PO Q2H PRN (Reason: migraine headache) Qty: 10 0RF Rx Instructions: do not exceed 8 doses per 24 hrs ondansetron 4 mg tablet,disintegrating 4 mg PO Q8H PRN (Reason: nausea and vomiting) Qty: 20 0RF ibuprofen 800 mg tablet 800 mg PO Q8H PRN (Reason: pain) Qty: 20 0RF dicyclomine 20 mg tablet 20 mg PO QID PRN (Reason: abdominal pain) Qty: 30 0RF cephalexin 500 mg capsule 500 mg PO QID Qty: 40 0RF ondansetron 4 mg tablet,disintegrating 4 mg PO Q8H PRN (Reason: nausea and vomiting) Qty: 20 0RF albuterol sulfate [Ventolin HFA] 90 mcg/actuation HFA aerosol inhaler 2 puff inhalation Q6H PRN (Reason: shortness of breath or wheezing) Qty: 8.5 0RF triamcinolone acetonide 0.025 % ointment 1 applic topical BID Qty: 15 0RF cephalexin 500 mg capsule 500 mg PO QID Qty: 28 0RF Problem List Clinical Impression: Abdominal pain, Hypertension Patient/Caregiver Discharge Instructions Education Materials: Abdominal Pain, ED High Blood Pressure ... Additional Instructions: Take your medications as prescribed follow-up with your primary care doctor Print Language: Comoran Stand Alone Forms: Selin Award Info., Patient Portal Info Letter PA/ENVIRONMENTAL SCIENCE TECHNICIAN Supervising Physician PA/CESAR Supervising Physician: Christian Granados ENP [facility] Clinical Information Provided by: patient Medical Records reviewed [facility] Meds/Rx considered, not ordered None Labs/Rad/Tests considered, not ordered None Chronic Illness/Social Conditions which may negatively complicate care or outcome(s)-explain: ETOH/drugs/substance abuse EKG EKG not done Labs Labs: none Imaging Imaging interpretation: none Medication Administration(s) none Medication Administration History Discontinued Medications Clonidine (Clonidine Hcl 0.1 Mg Tablet) 0.1 mg PO X1 ONE Stop: 01/30/25 17:34 Last Admin: 01/30/25 18:06 Dose: 0.1 mg Documented By: ED Hydralazine HCl (Hydralazine Hcl 25 Mg Tablet) 25 mg PO X1 ONE Stop: 01/30/25 17:34 Last Admin: 01/30/25 18:05 Dose: 25 mg Documented By: ED Diagnosis Differential Diagnosis ED Complaint MDM: Hypertension secondary to methamphetamine abuse diverticulitis diverticulos
[2025-01-30 18:05] VITALS: BP 166/118; PULSE 99
[2025-01-30 18:06] VITALS: BP 166/118; PULSE 99
[2025-01-30 18:07] VITALS: BP 166/118; PULSE 99; RESP 16; TEMP 36.9; O2SAT 99
== END 2025-01-30 18:07 | disposition home or self-care (01) ==
LOC: SERX 17:38
PROVIDERS: Emergency Provider Emergency Medicine
DX: R10.30 Lower abdominal pain, unspecified (principal); I10 Essential (primary) hypertension; F17.210 Nicotine dependence, cigarettes, uncomplicated
CPT/HCPCS: 99283; A9270

== ENCOUNTER 2025-01-30 19:41 | Emergency (ER) | payer MEDICAID, SELFPAY ==
[2025-01-30 19:43] VITALS: BP 153/104; PULSE 100; RESP 18; TEMP 36.9; O2SAT 98
[2025-01-30 19:46] VITALS: PULSE 100; O2SAT 98; BMI 21.6
--- NOTE | 2025-01-30 20:53 | PD.EDABDPN ---
ED Abdominal Pain RME/HPI General Chief Complaint: Abdominal Pain Stated complaint: ABD PAIN Time seen by provider: 01/30/25 20:03 Arrival date/time: 01/30/25 19:41 This is a case of 39-year-old male with history of anxiety and polysubstance abuse came in the emergency room due to abdominal pain patient had multiple visit here in the emergency room last visit was this morning with the same symptoms patient was discharged with Blanca for abdominal pain patient states that he was not able to get the medication and he just went here to have the medication to give it to him and he will get the medication tomorrow patient denies any nausea vomiting diarrhea or constipation patient refused any blood test or any imaging Limitations: no limitations Related Data Previous Rx's ?Medication ?Instructions ?Recorded cetirizine 5 mg-pseudoephedrine ER 1 tab PO BID PRN sinus symptoms 08/30/21 120 mg tablet,extended #14 tabs release,12hr (Zyrtec-D) diphenhydramine HCl 25 mg capsule 25 mg PO Q8H PRN allergic symptoms 09/23/22 (Benadryl) #30 caps ibuprofen 600 mg tablet 600 mg PO QID PRN pain #20 tabs 09/23/22 ciprofloxacin HCl 500 mg tablet 500 mg PO BID #14 tabs 11/29/22 (Cipro) dicyclomine 20 mg tablet 20 mg PO BID #20 tabs 11/29/22 metronidazole 500 mg tablet 500 mg PO BID #14 tabs 11/29/22 cyclobenzaprine 7.5 mg tablet 7.5 mg PO TID PRN muscle spasm #30 12/03/22 tabs hydrocodone 5 mg-acetaminophen 325 1 tab PO BID PRN pain #14 tabs 01/16/23 mg tablet hydroxyzine HCl 50 mg tablet 50 mg PO Q6H PRN anxiety #20 tabs 01/18/24 amoxicillin 875 mg-potassium 1 tab PO BID #14 tabs 02/07/24 clavulanate 125 mg tablet acetaminophen 325 mg tablet 650 mg (2 x 325 mg) PO TID PRN 02/11/24 pain #30 tabs ibuprofen 600 mg tablet 600 mg PO Q8H PRN pain #30 tabs 02/11/24 ibuprofen 600 mg tablet 600 mg PO Q8H PRN pain #14 tabs 02/15/24 lidocaine 5 % topical patch 2 patch topical QDAY PRN pain #30 02/15/24 (Lidoderm) ea acetaminophen 500 mg tablet 500 mg PO Q6H PRN pain #30 tabs 09/15/24 tizanidine 4 mg tablet 4 mg PO BID PRN muscle spasticity 09/15/24 #20 tabs sumatriptan succinate 25 mg tablet 25 mg PO Q2H PRN migraine headache 10/08/24 (Imitrex) #10 tabs albuterol sulfate 90 mcg/actuation 1 inh inhalation Q4H PRN shortness 11/06/24 aerosol inhaler (Ventolin HFA) of breath or wheezing #8.5 grams hydroxyzine pamoate 25 mg capsule 25 mg PO BID PRN anxiety #10 caps 11/06/24 ibuprofen 800 mg tablet 800 mg PO Q8H PRN pain #20 tabs 12/21/24 ondansetron 4 mg disintegrating 4 mg PO Q8H PRN nausea and 12/21/24 tablet vomiting #20 tabs dicyclomine 20 mg tablet 20 mg PO QID PRN abdominal pain 12/27/24 #30 tabs cephalexin 500 mg capsule 500 mg PO QID #40 caps 12/28/24 albuterol sulfate 90 mcg/actuation 2 puff inhalation Q6H PRN 01/03/25 aerosol inhaler (Ventolin HFA) shortness of breath or wheezing #8.5 grams ondansetron 4 mg disintegrating 4 mg PO Q8H PRN nausea and 01/03/25 tablet vomiting #20 tabs amoxicillin 875 mg-potassium 1 tab PO BID #20 tabs 01/16/25 clavulanate 125 mg tablet ibuprofen 200 mg-phenylephrine HCl 1 tab PO Q4H PRN sinus symptoms 01/16/25 10 mg tablet (Sudafed PE Head #20 tabs Congestion-Pain) lidocaine HCl 2 % mucosal solution 10 ml PO Q4H PRN sore throat #100 01/16/25 (Lidocaine Viscous) mL ondansetron 4 mg disintegrating 4 mg PO Q8H PRN nausea and 01/16/25 tablet vomiting #10 tabs cephalexin 500 mg capsule 500 mg PO QID #28 caps 01/18/25 triamcinolone acetonide 0.025 % 1 applic topical BID #15 grams 01/18/25 topical ointment dicyclomine 20 mg tablet 20 mg PO BID #6 tabs 01/30/25 Allergies Allergy/AdvReac Type Severity Reaction Status Date / Time No Known Allergies Allergy Verified 01/30/25 16:56 Review of Systems Review of Systems Systems Reviewed: All systems reviewed, normal except as documented Constitutional Constitutional: Reports system reviewed and no additional complaints, except as documented and Reports as per HPI ENT Ears, Nose, Mouth, and Throat: Denies dysphagia and Denies odynophagia Cardiovascular Cardiovascular: Reports system reviewed and no additional complaints, except as documented and Reports as per HPI Respiratory Respiratory: Reports system reviewed and no additional complaints, except as documented and Reports as per HPI Gastrointestinal Gastrointestinal: Reports system reviewed and no additional complaints, except as documented, Reports as per HPI, Reports abdominal pain, Denies belching, Denies bloating, Denies change in bowel habits, Denies change in stool character, Denies coffee ground emesis, Denies constipation, Denies cramping, Denies diarrhea, Denies dyspepsia, Denies dysphagia, Denies early satiety, Denies excessive flatus, Denies fecal incontinence, Denies heartburn, Denies hematemesis, Denies hematochezia, Denies loose stools, Denies melena, Denies nausea, Denies odynophagia, Denies tenesmus and Denies vomiting Genitourinary Genitourinary: Reports system reviewed and no additional complaints, except as documented and Reports as per HPI Musculoskeletal Musculoskeletal: Reports system reviewed and no additional complaints, except as documented and Reports as per HPI Neurologic Neurologic: Reports system reviewed and no additional complaints, except as documented and Reports as per HPI Past Medical History Past Medical History NEUROLOGIC: Negative Neurological Disorders or Seizures CARDIAC: Negative Cardiac Disorders or Congestive Heart Failure RESPIRATORY: Negative Chronic Obstructive Pulmonary Disease (COPD) or Asthma GASTROINTESTINAL: Negative Gastrointestinal Disorders GENITOURINARY: Negative Genitourinary Disorders or Renal Disease MUSCULOSKELETAL: Negative Musculoskeletal Disorders ENDOCRINE: Negative Endocrine Disorders, Diabetes Mellitus Type 1 or Diabetes Mellitus Type 2 HEMATOLOGIC: Negative Blood Disorders or Sickle Cell Disease PSYCHO/SOCIAL: Positive Recreational Drug Use OTHER HISTORY: Positive Chicken Pox; Negative Hospitalization, Blood Transfusions, Blood Transfusion Reaction, Anesthesia Reactions or Cancer Social History SMOKING STATUS: Current every day smoker SUBSTANCE USE: methamphetamine ED Exam General Limitations: Present no limitations General appearance: Present alert, in no apparent distress and other (Patient is awake alert oriented not in distress nontoxic looking looking well-hydrated well-nourished) Head Head exam: Present atraumatic, normocephalic and normal inspection Eye Eye exam: Present normal appearance, PERRL and EOMI ENT ENT exam: Present normal exam, normal oropharynx and mucous membranes moist Neck Neck exam: Present normal inspection, full ROM and trachea midline; Absent tenderness, meningismus, lymphadenopathy or thyromegaly Chest Chest inspection: Present normal inspection and symmetric chest wall rise; Absent tenderness, rash or abscess Respiratory Respiratory exam: Present normal lung sounds bilaterally; Absent respiratory distress, wheezes, stridor, accessory muscle use or prolonged expiratory phase Cardiovascular Cardiovascular exam: Present regular rate, normal rhythm and normal heart sounds; Absent bradycardia, tachycardia, irregular rhythm, systolic murmur or diastolic murmur Abdominal Exam Abdominal exam: Present soft, normal bowel sounds and other (No CVA tenderness); Absent distention, tenderness, guarding, rebound, rigidity, diminished bowel sounds, hyperactive bowel sounds, hypoactive bowel sounds, organomegaly, trauma, psoas sign, obturator sign, heel tap sign, Warner's sign, Rovsing's sign, tenderness at McBurney's Point or hernia Extremities Exam Extremities exam: Present normal inspection and full ROM Back Exam Back exam: Present normal inspection and full ROM Neurological Exam Neurological exam: Present alert, oriented X3, CN II-XII intact, normal gait and reflexes normal; Absent motor sensory deficit Psychiatric Psychiatric exam: Present normal affect and normal mood Skin Skin exam: Present warm, dry, intact and normal color Course Quality Measures none Orders Category Date Time Status Dicyclomine Inj [Bentyl Inj] Med 01/30/25 20:52 Once 10 mg IM X1 ONE Vital Signs Vital signs: Vital Signs Temperature 98.5 F 01/30/25 19:43 Pulse Rate 100 01/30/25 19:43 Respiratory Rate 18 01/30/25 19:43 Blood Pressure 153/104 H 01/30/25 19:43 Pulse Oximetry (%) 98 01/30/25 19:43 Oxygen Delivery Method Room Air 01/30/25 19:43 Oxygen saturation is 98% BP was rechecked after giving Bentyl and noted to be normal 125/80 Abdominal Pain MDM MDM Narrative MDM Narrative:: This is a case of 39-year-old male with history of anxiety and polysubstance abuse came in the emergency room due to abdominal pain patient had multiple visit here in the emergency room last visit was this morning with the same symptoms patient was discharged with Bentyl for abdominal pain patient states that he was not able to get the medication and he just went here to have the medication to give it to him and he will get the medication tomorrow patient denies any nausea vomiting diarrhea or constipation patient refused any blood test or any imaging physical examination patient is awake alert oriented not in distress nontoxic looking well-hydrated well-nourished abdominal exam is benign nonsurgical no guarding no rebound no rigidity no tenderness negative psoas negative straight or negative Rovsing's negative McBurney's negative Warner sign negative CVA tenderness excellent skin turgor the rest of the physical examination and neurological exam is normal and unremarkable no signs and symptoms of sepsis dehydration or acute abdomen Bentyl was given here in the emergency room patient abdominal pain was resolved patient will get the medication tomorrow in the pharmacy as needed for abdominal pain patient was advised to see a legal document assistant for chronic abdominal pain for any recurrent persistent worsening symptoms return precaution in the ER was advised Patient was discharged with comfortable condition walking with stable gait. Patient verbalized no further complains explained diagnosis and answered patient question. Patient is comfortable with the proposed management plan including the need to follow up with his/her primary care physician and any specialist if applicable Discussed patient for any urgent condition or worsening sx, He/She needed to go to emergency room immediately or call 911. Patient acknowledge the responsibility to follow up as instructed and to monitor her/his symptoms. For any persistence of the symptoms for more than 3-5 days return precaution advised. Discussed the result of the test and was given printed discharge instruction Patient data External records reviewed:: [facility] previous records Clinical information provided by:: patient Social determinants that could affect healthcare access:: none Patient has the following chronic illnesses:: None How is presenting disease/condition affected by chronic disease/condition?: no chronic disease Evaluation data The following diagnostics were reviewed and interpreted by me:: other (specify) (None) Lab and/or radiology exams considered but not ordered:: None Interpretation Summary: None Medications / Prescriptions Medications or Prescriptions considered but not ordered:: Given Medication administrations:: Medication Administration History Dicyclomine HCl (Dicyclomine Inj 10 Mg/Ml 2ml Vial) 10 mg IM X1 ONE Stop: 01/30/25 20:53 Given Consultations Consultation(s) initiated? (list below): No Diagnosis Differential diagnosis abdominal pain: abdominal pain Most likely diagnosis given after review of the tests above:: Chronic abdominal pain Admission Indicated Admission indicated?: not indicated Explain why admission is indicated or not indicated:: Not indicated Admission Request Was there a request for admission?: No Disposition Plan Disposition Plan: Discharge Discharge Attestation Discharge Attestation: The patient and all family members were given an opportunity to ask questions and understood the discharge instructions. Discharge instructions specifically effects, indications for sooner follow up or return to the emergency department, and the expected course of current diagnosis. Patient condition: Stable Discharge Plan Plan Patient Disposition: HOME (Self Care) Patient condition on transfer: Stable Prescriptions/Referrals Prescriptions/Med Rec: No Action cetirizine-pseudoephedrine [Zyrtec-D] 5-120 mg tablet extended release 12 hr 1 tab PO BID PRN (Reason: sinus symptoms) Qty: 14 0RF diphenhydramine HCl [Benadryl] 25 mg capsule 25 mg PO Q8H PRN (Reason: allergic symptoms) Qty: 30 0RF ibuprofen 600 mg tablet 600 mg PO QID PRN (Reason: pain) Qty: 20 0RF ciprofloxacin HCl [Cipro] 500 mg tablet 500 mg PO BID Qty: 14 0RF metronidazole 500 mg tablet 500 mg PO BID Qty: 14 0RF dicyclomine 20 mg tablet 20 mg PO BID Qty: 20 0RF hydroxyzine HCl 50 mg tablet 50 mg PO Q6H PRN (Reason: anxiety) Qty: 20 0RF amoxicillin-pot clavulanate 875-125 mg tablet 1 tab PO BID Qty: 14 0RF ibuprofen 600 mg tablet 600 mg PO Q8H PRN (Reason: pain) Qty: 30 0RF acetaminophen 325 mg tablet 650 mg PO TID PRN (Reason: pain) Qty: 30 0RF lidocaine [Lidoderm] 5 % adhesive patch,medicated 2 patch topical QDAY PRN (Reason: pain) Qty: 30 0RF Rx Instructions: leave on most painful area for up to 12 hrs ibuprofen 600 mg tablet 600 mg PO Q8H PRN (Reason: pain) Qty: 14 0RF tizanidine 4 mg tablet 4 mg PO BID PRN (Reason: muscle spasticity) Qty: 20 0RF acetaminophen 500 mg tablet 500 mg PO Q6H PRN (Reason: pain) Qty: 30 0RF hydroxyzine pamoate 25 mg capsule 25 mg PO BID PRN (Reason: anxiety) Qty: 10 0RF albuterol sulfate [Ventolin HFA] 90 mcg/actuation HFA aerosol inhaler 1 inh inhalation Q4H PRN (Reason: shortness of breath or wheezing) Qty: 8.5 0RF amoxicillin-pot clavulanate 875-125 mg tablet 1 tab PO BID Qty: 20 0RF lidocaine HCl [Lidocaine Viscous] 2 % solution 10 ml PO Q4H PRN (Reason: sore throat) Qty: 100 0RF ondansetron 4 mg tablet,disintegrating 4 mg PO Q8H PRN (Reason: nausea and vomiting) Qty: 10 0RF Sudafed PE Head Congestn-Pain 200-10 mg tablet 1 tab PO Q4H PRN (Reason: sinus symptoms) Qty: 20 0RF cyclobenzaprine 7.5 mg tablet 7.5 mg PO TID PRN (Reason: muscle spasm) Qty: 30 0RF hydrocodone-acetaminophen 5-325 mg tablet 1 tab PO BID MDD 10 PRN (Reason: pain) Qty: 14 0RF sumatriptan succinate [Imitrex] 25 mg tablet 25 mg PO Q2H PRN (Reason: migraine headache) Qty: 10 0RF Rx Instructions: do not exceed 8 doses per 24 hrs ondansetron 4 mg tablet,disintegrating 4 mg PO Q8H PRN (Reason: nausea and vomiting) Qty: 20 0RF ibuprofen 800 mg tablet 800 mg PO Q8H PRN (Reason: pain) Qty: 20 0RF dicyclomine 20 mg tablet 20 mg PO QID PRN (Reason: abdominal pain) Qty: 30 0RF cephalexin 500 mg capsule 500 mg PO QID Qty: 40 0RF ondansetron 4 mg tablet,disintegrating 4 mg PO Q8H PRN (Reason: nausea and vomiting) Qty: 20 0RF albuterol sulfate [Ventolin HFA] 90 mcg/actuation HFA aerosol inhaler 2 puff inhalation Q6H PRN (Reason: shortness of breath or wheezing) Qty: 8.5 0RF triamcinolone acetonide 0.025 % ointment 1 applic topical BID Qty: 15 0RF cephalexin 500 mg capsule 500 mg PO QID Qty: 28 0RF dicyclomine 20 mg tablet 20 mg PO BID Qty: 6 0RF Referrals: No Primary/Family,Physician [Primary Care Provider] - In 1 week Problem List Clinical Impression: Abdominal pain Patient/Caregiver Discharge Instructions Education Materials: Abdominal Pain Additional Instructions: Follow-up with your primary care physician in 2 days for reevaluation and to be referred to legal document assistant for further evaluation and treatment of chronic abdominal pain recurrence persistent worsening symptoms or any emergent concern call 911 or go to the nearest emergency room take the medication that was prescribed with the previous provider keep hydrated Print Language: Czech Stand Alone Forms: Selin Award Info., Patient Portal Info Letter PA/LEVELMAN Supervising Physician PA/LEVELMAN Supervising Physician: Dr. Bloom
[2025-01-30] MEDS: DICYCLOMINE INJ 10 MG/ML 2ML VIAL IM (21:00)
== END 2025-01-30 21:27 | disposition home or self-care (01) ==
PROVIDERS: Emergency Provider Emergency Medicine
DX: R10.9 Unspecified abdominal pain (principal)
CPT/HCPCS: 96372; 99283; J0500

== ENCOUNTER 2025-02-09 01:11 | Emergency (ER) | payer MEDICAID, SELFPAY ==
[2025-02-09 01:21] VITALS: BMI 19.1
[2025-02-09 01:23] VITALS: BP 137/93; PULSE 94; RESP 18; TEMP 37.1; O2SAT 100
--- NOTE | 2025-02-09 02:06 | PD.EDABDPN ---
ED Abdominal Pain RME/HPI General Chief Complaint: Abdominal Pain Stated complaint: ABD PAIN Time seen by provider: 02/09/25 02:07 Arrival date/time: 02/09/25 01:11 RME / HPI RME / HPI narrative: See MDM for Dr. Lara's HPI documentation. Related Data Previous Rx's ?Medication ?Instructions ?Recorded cetirizine 5 mg-pseudoephedrine ER 1 tab PO BID PRN sinus symptoms 08/30/21 120 mg tablet,extended #14 tabs release,12hr (Zyrtec-D) diphenhydramine HCl 25 mg capsule 25 mg PO Q8H PRN allergic symptoms 09/23/22 (Benadryl) #30 caps ibuprofen 600 mg tablet 600 mg PO QID PRN pain #20 tabs 09/23/22 ciprofloxacin HCl 500 mg tablet 500 mg PO BID #14 tabs 11/29/22 (Cipro) dicyclomine 20 mg tablet 20 mg PO BID #20 tabs 11/29/22 metronidazole 500 mg tablet 500 mg PO BID #14 tabs 11/29/22 cyclobenzaprine 7.5 mg tablet 7.5 mg PO TID PRN muscle spasm #30 12/03/22 tabs hydrocodone 5 mg-acetaminophen 325 1 tab PO BID PRN pain #14 tabs 01/16/23 mg tablet hydroxyzine HCl 50 mg tablet 50 mg PO Q6H PRN anxiety #20 tabs 01/18/24 amoxicillin 875 mg-potassium 1 tab PO BID #14 tabs 02/07/24 clavulanate 125 mg tablet acetaminophen 325 mg tablet 650 mg (2 x 325 mg) PO TID PRN 02/11/24 pain #30 tabs ibuprofen 600 mg tablet 600 mg PO Q8H PRN pain #30 tabs 02/11/24 ibuprofen 600 mg tablet 600 mg PO Q8H PRN pain #14 tabs 02/15/24 lidocaine 5 % topical patch 2 patch topical QDAY PRN pain #30 02/15/24 (Lidoderm) ea acetaminophen 500 mg tablet 500 mg PO Q6H PRN pain #30 tabs 09/15/24 tizanidine 4 mg tablet 4 mg PO BID PRN muscle spasticity 09/15/24 #20 tabs sumatriptan succinate 25 mg tablet 25 mg PO Q2H PRN migraine headache 10/08/24 (Imitrex) #10 tabs albuterol sulfate 90 mcg/actuation 1 inh inhalation Q4H PRN shortness 11/06/24 aerosol inhaler (Ventolin HFA) of breath or wheezing #8.5 grams hydroxyzine pamoate 25 mg capsule 25 mg PO BID PRN anxiety #10 caps 11/06/24 ibuprofen 800 mg tablet 800 mg PO Q8H PRN pain #20 tabs 12/21/24 ondansetron 4 mg disintegrating 4 mg PO Q8H PRN nausea and 12/21/24 tablet vomiting #20 tabs dicyclomine 20 mg tablet 20 mg PO QID PRN abdominal pain 12/27/24 #30 tabs cephalexin 500 mg capsule 500 mg PO QID #40 caps 12/28/24 albuterol sulfate 90 mcg/actuation 2 puff inhalation Q6H PRN 01/03/25 aerosol inhaler (Ventolin HFA) shortness of breath or wheezing #8.5 grams ondansetron 4 mg disintegrating 4 mg PO Q8H PRN nausea and 01/03/25 tablet vomiting #20 tabs amoxicillin 875 mg-potassium 1 tab PO BID #20 tabs 01/16/25 clavulanate 125 mg tablet ibuprofen 200 mg-phenylephrine HCl 1 tab PO Q4H PRN sinus symptoms 01/16/25 10 mg tablet (Sudafed PE Head #20 tabs Congestion-Pain) lidocaine HCl 2 % mucosal solution 10 ml PO Q4H PRN sore throat #100 01/16/25 (Lidocaine Viscous) mL ondansetron 4 mg disintegrating 4 mg PO Q8H PRN nausea and 01/16/25 tablet vomiting #10 tabs cephalexin 500 mg capsule 500 mg PO QID #28 caps 01/18/25 triamcinolone acetonide 0.025 % 1 applic topical BID #15 grams 01/18/25 topical ointment dicyclomine 20 mg tablet 20 mg PO BID #6 tabs 01/30/25 Allergies Allergy/AdvReac Type Severity Reaction Status Date / Time No Known Allergies Allergy Verified 01/30/25 16:56 Review of Systems Review of Systems Systems Reviewed: All systems reviewed, normal except as documented ED Exam Narrative Physical exam: See [facility] for Dr. Lara's physical exam documentation. Course Quality Measures none Orders Category Date Time Status KUB [XR abdomen 1V] Stat Exams 02/09/25 02:24 Taken Amylase Stat Lab 02/09/25 03:11 Completed Bilirubin,Direct Stat Lab 02/09/25 03:11 Completed CBC Stat Lab 02/09/25 03:11 Completed CMP [Comprehensive Metabolic Panel] Stat Lab 02/09/25 03:11 Completed Drug Screen,Urine Stat Lab 02/09/25 03:53 Completed Lipase Stat Lab 02/09/25 03:11 Completed Magnesium Stat Lab 02/09/25 03:11 Completed Vital Signs Vital signs: Vital Signs Temperature 98.8 F 02/09/25 01:23 Pulse Rate 94 02/09/25 01:23 Respiratory Rate 18 02/09/25 01:23 Blood Pressure 137/93 H 02/09/25 01:23 Pulse Oximetry (%) 100 02/09/25 01:23 Oxygen Delivery Method Room Air 02/09/25 01:23 Abdominal Pain MDM MDM Narrative MDM Narrative:: This section includes all my notes and documentations, including HPI, PE, and ED course. Boston Lara MD HPI: 39yo male here with abdominal pain. Has trouble localizing the pain. Has trouble describing the quality and quantity of the pain. Has trouble describing exacerbating factors or relieving factors. No vomiting. Eating normally. No other complaints. ROS: All negative except as documented in HPI. Physical Exam: General: Alert and oriented. No acute distress. Eyes: Conjunctivae and lids clear. ENT: No nasal congestion. Neck: Supple. Heart: RRR. Lungs: No respiratory distress. Good air movement. No rhonchi, wheezing, rales. Abdomen: Soft and nontender. Normal bowel sounds. No distension. No rebound or guarding. Back: No CVA tenderness. Skin: Warm and dry. Neuro: Alert and oriented X 3. I reviewed EMS notes. I reviewed all diagnostic test results. My interpretation of the abdominal x-ray is NAD. Blood tests are unremarkable. UDS positive for methamphetamine. At this point, diagnoses include: Methamphetamine abuse Based on my best medical judgment, made decision no further evaluation or treatment indicated at this time. Patient understands and agrees to the discharge instructions customized and printed, see below. Discharge instructions from Dr. Lara printed for you: --After evaluation, your chronic methamphetamine use is causing constipation. --To prevent severe injuries and illnesses, even fatal, stop using methamphetamine and all other drugs. --To help current constipation and prevent future constipation, increase oral fluid because dehydration cause severe constipation. Maintain clear urine. If dark or yellow, increase oral fluid. --And every day, increase fresh fruits and fresh vegetables and physical exercise. --See a private doctor on 02/11/2025 for recheck. To make sure there is no serious underlying abdominal condition, ask to help you get more care not available here in the ER. Such as EGD or scoping of your stomach, colonoscopy or scoping the colon, and a referral to see a adolescent coordinator. Ask to review all test results and official radiology reports, to make sure you receive all necessary follow-ups and monitoring. --Seek immediate medical care with worsening or with any concerns. Boston Lara MD Patient data External records reviewed:: [facility] previous records (Per chart review, patient was seen here on 01/30/25 for abdominal pain.) and EMS form Clinical information provided by:: patient Social determinants that could affect healthcare access:: substance use Patient has the following chronic illnesses:: none How is presenting disease/condition affected by chronic disease/condition?: no chronic disease Evaluation data The following diagnostics were reviewed and interpreted by me:: lab results and radiology exam(s) Lab and/or radiology exams considered but not ordered:: none Interpretation Summary: I reviewed all diagnostic test results. My interpretation of the abdominal x-ray is NAD. Blood tests are unremarkable. UDS positive for methamphetamine. Medications / Prescriptions Medications or Prescriptions considered but not ordered:: none Medication administrations:: none Consultations Consultation(s) initiated? (list below): No Diagnosis Differential diagnosis abdominal pain: constipation, pancreatitis, small bowel obstruction and other (Psychogenic) Most likely diagnosis given after review of the tests above:: Methamphetamine abuse Admission Indicated Admission indicated?: not indicated Explain why admission is indicated or not indicated:: With no condition needing emergent intervention, there was no indication for admission. Admission Request Was there a request for admission?: No Disposition Plan Disposition Plan: Discharge Discharge Attestation Discharge Attestation: The patient and all family members were given an opportunity to ask questions and understood the discharge instructions. Discharge instructions specifically effects, indications for sooner follow up or return to the emergency department, and the expected course of current diagnosis. Patient condition: Stable Discharge Plan Plan Patient Disposition: HOME (Self Care) Prescriptions/Referrals Prescriptions/Med Rec: No Action cetirizine-pseudoephedrine [Zyrtec-D] 5-120 mg tablet extended release 12 hr 1 tab PO BID PRN (Reason: sinus symptoms) Qty: 14 0RF diphenhydramine HCl [Benadryl] 25 mg capsule 25 mg PO Q8H PRN (Reason: allergic symptoms) Qty: 30 0RF ibuprofen 600 mg tablet 600 mg PO QID PRN (Reason: pain) Qty: 20 0RF ciprofloxacin HCl [Cipro] 500 mg tablet 500 mg PO BID Qty: 14 0RF metronidazole 500 mg tablet 500 mg PO BID Qty: 14 0RF dicyclomine 20 mg tablet 20 mg PO BID Qty: 20 0RF hydroxyzine HCl 50 mg tablet 50 mg PO Q6H PRN (Reason: anxiety) Qty: 20 0RF amoxicillin-pot clavulanate 875-125 mg tablet 1 tab PO BID Qty: 14 0RF ibuprofen 600 mg tablet 600 mg PO Q8H PRN (Reason: pain) Qty: 30 0RF acetaminophen 325 mg tablet 650 mg PO TID PRN (Reason: pain) Qty: 30 0RF lidocaine [Lidoderm] 5 % adhesive patch,medicated 2 patch topical QDAY PRN (Reason: pain) Qty: 30 0RF Rx Instructions: leave on most painful area for up to 12 hrs ibuprofen 600 mg tablet 600 mg PO Q8H PRN (Reason: pain) Qty: 14 0RF tizanidine 4 mg tablet 4 mg PO BID PRN (Reason: muscle spasticity) Qty: 20 0RF acetaminophen 500 mg tablet 500 mg PO Q6H PRN (Reason: pain) Qty: 30 0RF hydroxyzine pamoate 25 mg capsule 25 mg PO BID PRN (Reason: anxiety) Qty: 10 0RF albuterol sulfate [Ventolin HFA] 90 mcg/actuation HFA aerosol inhaler 1 inh inhalation Q4H PRN (Reason: shortness of breath or wheezing) Qty: 8.5 0RF amoxicillin-pot clavulanate 875-125 mg tablet 1 tab PO BID Qty: 20 0RF lidocaine HCl [Lidocaine Viscous] 2 % solution 10 ml PO Q4H PRN (Reason: sore throat) Qty: 100 0RF ondansetron 4 mg tablet,disintegrating 4 mg PO Q8H PRN (Reason: nausea and vomiting) Qty: 10 0RF Sudafed PE Head Congestn-Pain 200-10 mg tablet 1 tab PO Q4H PRN (Reason: sinus symptoms) Qty: 20 0RF cyclobenzaprine 7.5 mg tablet 7.5 mg PO TID PRN (Reason: muscle spasm) Qty: 30 0RF hydrocodone-acetaminophen 5-325 mg tablet 1 tab PO BID MDD 10 PRN (Reason: pain) Qty: 14 0RF sumatriptan succinate [Imitrex] 25 mg tablet 25 mg PO Q2H PRN (Reason: migraine headache) Qty: 10 0RF Rx Instructions: do not exceed 8 doses per 24 hrs ondansetron 4 mg tablet,disintegrating 4 mg PO Q8H PRN (Reason: nausea and vomiting) Qty: 20 0RF ibuprofen 800 mg tablet 800 mg PO Q8H PRN (Reason: pain) Qty: 20 0RF dicyclomine 20 mg tablet 20 mg PO QID PRN (Reason: abdominal pain) Qty: 30 0RF cephalexin 500 mg capsule 500 mg PO QID Qty: 40 0RF ondansetron 4 mg tablet,disintegrating 4 mg PO Q8H PRN (Reason: nausea and vomiting) Qty: 20 0RF albuterol sulfate [Ventolin HFA] 90 mcg/actuation HFA aerosol inhaler 2 puff inhalation Q6H PRN (Reason: shortness of breath or wheezing) Qty: 8.5 0RF triamcinolone acetonide 0.025 % ointment 1 applic topical BID Qty: 15 0RF cephalexin 500 mg capsule 500 mg PO QID Qty: 28 0RF dicyclomine 20 mg tablet 20 mg PO BID Qty: 6 0RF Referrals: No Primary/Family,Physician [Primary Care Provider] - In 1 week Problem List Clinical Impression: Methamphetamine abuse Patient/Caregiver Discharge Instructions Discharge Activity: activity as tolerated Education Materials: Understanding Methamphetamine ..., ED Constipation (Adult), ED Drug Abuse Additional Instructions: Discharge instructions from Dr. Lara printed for you: --After evaluation, your chronic methamphetamine use is causing constipation. --To prevent severe injuries and illnesses, even fatal, stop using methamphetamine and all other drugs. --To help current constipation and prevent future constipation, increase oral fluid because dehydration cause severe constipation.? Maintain clear urine.? If dark or yellow, increase oral fluid. --And every day, increase fresh fruits and fresh vegetables and physical exercise. --See a private doctor on 02/11/2025 for recheck. To make sure there is no serious underlying abdominal condition, ask to help you get more care not available here in the ER.? Such as EGD or scoping of your stomach, colonoscopy or scoping the colon, and a referral to see a adolescent coordinator. Ask to review all test results and official radiology reports, to make sure you receive all necessary follow-ups and monitoring. --Seek immediate medical care with worsening or with any concerns. Print Language: Rwandan Stand Alone Forms: [employer] Info., Patient Portal Info Letter
--- NOTE | 2025-02-09 02:24 | XR_ITS ---
Examination: Abdomen AP single view Technique: AP portable supine abdomen, single view Exam date and time: February 09, 2025, 0241 hours INDICATIONS: Abdominal pain today FINDINGS: Moderate air and stool throughout the colon. No obstruction. No free air. The osseous structures are intact. IMPRESSION: Nonobstructive bowel gas pattern
[2025-02-09 03:18] LABS: Basophils # (Auto) 0.0 Thou/mm3 (0.0-0.2); Basophils % (Auto) 0 % (0-2.5); Eosinophils # (Auto) 0.1 Thou/mm3 (0.0-0.5); Eosinophils % (Auto) 2 % (0-10); Hematocrit 40.8 % (41.0-53.0); Hemoglobin 13.9 g/dL (13.5-16.0); Immature Granulocytes Auto 0.02 Thou/mm3 (0.00-0.00); Lymphocytes # (Auto) 1.9 Thou/mm3 (1.0-4.8); Lymphocytes % (Auto) 23 % (10-50); Mean Corpuscular HGB Conc 34.1 g/dl (31.0-37.0); Mean Corpuscular Hemoglobin 30.7 pg (25.0-35.0); Mean Corpuscular Volume 90 fL (80-100); Monocytes # (Auto) 1.0 Thou/mm3 (0.0-0.8); Monocytes % (Auto) 12 % (0-12); Neutrophils # (Auto) 5.2 Thou/mm3 (1.8-7.7); Neutrophils % (Auto) 63 % (37-80); Nucleated Red Blood Cell # 0.00 Thou/mm3 (0.00-0.00); Nucleated Red Blood Cell % 0 /100 WBC (0); Platelet Count 339 Thou/mm3 (140-440); RDW Standard Deviation 40.9 fL (35.1-43.9); Red Blood Count 4.53 Miln/mm3 (4.50-5.90); White Blood Count 8.3 Thou/mm3 (3.8-10.6)
[2025-02-09 03:37] LABS: Alanine Aminotransferase 16 U/L (10-49); Albumin, Serum 4.5 gm/dL (3.5-5.0); Albumin/Globulin Ratio 2.1 (1.2-2.2); Alkaline Phosphatase 101 U/L (46-116); Amylase 121 U/L (30-118); Anion Gap 8 (7-16); Aspartate Amino Transferase 25 U/L (0-34); BUN/Creatinine Ratio 14 Ratio (12-20); Bilirubin,Direct 0.1 mg/dL (0.0-0.3); Bilirubin,Total 0.4 mg/dL (0.3-1.2); Blood Urea Nitrogen 14 mg/dL (9-23); Calcium 9.2 mg/dL (8.3-10.6); Calcium (Corrected) 9.2 mg/dL (8.5-10.1); Carbon Dioxide 28.1 mMol/L (20.0-31.0); Chloride 105 mMol/L (98-107); Creatinine (Component) 1.0 mg/dL (0.6-1.3); Estimated Creatinine Clearance 88.9 mL/min (>60); Globulin 2.1 gm/dL (2.3-3.5); Glucose 86 mg/dL (74-106); Lipase 27 U/L (12-53); Magnesium 2.3 mg/dL (1.6-2.6); Osmolality,Calculated 280 (275-295); Potassium 4.1 mMol/L (3.4-5.1); Sodium 141 mMol/L (136-145); Total Protein 6.6 gm/dL (5.7-8.2); eGFR > 60 See Note
[2025-02-09 04:19] LABS: Amphetamine/Methamp Scrn,U Positive (Negative); Barbiturate Screen,Urine Negative (Negative); Benzodiazepines Screen,Urine Negative (Negative); Benzoylecgonine Screen, Ur Negative (Negative); Fentanyl Screen,Urine Negative (Negative); Opiate Screen,Urine Negative (Negative); THC Screen,Urine Negative (Negative)
== END 2025-02-09 04:56 | disposition home or self-care (01) ==
PROVIDERS: Emergency Provider Emergency Medicine
DX: F15.10 Other stimulant abuse, uncomplicated (principal); R10.9 Unspecified abdominal pain
CPT/HCPCS: 36415; 74018; 80053; 80307; 82150; 82248; 83690; 83735; 85025; 99283

== ENCOUNTER 2025-02-11 22:38 | Emergency (ER) | payer MEDICAID, SELFPAY ==
[2025-02-11 22:39] VITALS: PULSE 108; O2SAT 98; BMI 21.4
[2025-02-11 22:46] VITALS: BP 164/99; PULSE 103; RESP 19; TEMP 36.8; O2SAT 99
[2025-02-11] MEDS: DEXAMETHASONE SOD PHOS INJ 10 MG/ML VIAL PO (23:25)
--- NOTE | 2025-02-11 23:46 | PD.EDSKIN ---
ED Skin Abcess FB-RME/HPI General Chief complaint: Headache Stated complaint: BURNING SENSATION TO HEAD Time Seen by Provider: 02/11/25 23:09 Arrival date/time: 02/11/25 22:38 39M with history of drug/psych presents to ED with burning sensation on scalp. Limitations: no limitations Related Data Previous Rx's ?Medication ?Instructions ?Recorded cetirizine 5 mg-pseudoephedrine ER 1 tab PO BID PRN sinus symptoms 08/30/21 120 mg tablet,extended #14 tabs release,12hr (Zyrtec-D) diphenhydramine HCl 25 mg capsule 25 mg PO Q8H PRN allergic symptoms 09/23/22 (Benadryl) #30 caps ibuprofen 600 mg tablet 600 mg PO QID PRN pain #20 tabs 09/23/22 ciprofloxacin HCl 500 mg tablet 500 mg PO BID #14 tabs 11/29/22 (Cipro) dicyclomine 20 mg tablet 20 mg PO BID #20 tabs 11/29/22 metronidazole 500 mg tablet 500 mg PO BID #14 tabs 11/29/22 cyclobenzaprine 7.5 mg tablet 7.5 mg PO TID PRN muscle spasm #30 12/03/22 tabs hydrocodone 5 mg-acetaminophen 325 1 tab PO BID PRN pain #14 tabs 01/16/23 mg tablet hydroxyzine HCl 50 mg tablet 50 mg PO Q6H PRN anxiety #20 tabs 01/18/24 amoxicillin 875 mg-potassium 1 tab PO BID #14 tabs 02/07/24 clavulanate 125 mg tablet acetaminophen 325 mg tablet 650 mg (2 x 325 mg) PO TID PRN 02/11/24 pain #30 tabs ibuprofen 600 mg tablet 600 mg PO Q8H PRN pain #30 tabs 02/11/24 ibuprofen 600 mg tablet 600 mg PO Q8H PRN pain #14 tabs 02/15/24 lidocaine 5 % topical patch 2 patch topical QDAY PRN pain #30 02/15/24 (Lidoderm) ea acetaminophen 500 mg tablet 500 mg PO Q6H PRN pain #30 tabs 09/15/24 tizanidine 4 mg tablet 4 mg PO BID PRN muscle spasticity 09/15/24 #20 tabs sumatriptan succinate 25 mg tablet 25 mg PO Q2H PRN migraine headache 10/08/24 (Imitrex) #10 tabs albuterol sulfate 90 mcg/actuation 1 inh inhalation Q4H PRN shortness 11/06/24 aerosol inhaler (Ventolin HFA) of breath or wheezing #8.5 grams hydroxyzine pamoate 25 mg capsule 25 mg PO BID PRN anxiety #10 caps 11/06/24 ibuprofen 800 mg tablet 800 mg PO Q8H PRN pain #20 tabs 12/21/24 ondansetron 4 mg disintegrating 4 mg PO Q8H PRN nausea and 12/21/24 tablet vomiting #20 tabs dicyclomine 20 mg tablet 20 mg PO QID PRN abdominal pain 12/27/24 #30 tabs cephalexin 500 mg capsule 500 mg PO QID #40 caps 12/28/24 albuterol sulfate 90 mcg/actuation 2 puff inhalation Q6H PRN 01/03/25 aerosol inhaler (Ventolin HFA) shortness of breath or wheezing #8.5 grams ondansetron 4 mg disintegrating 4 mg PO Q8H PRN nausea and 01/03/25 tablet vomiting #20 tabs amoxicillin 875 mg-potassium 1 tab PO BID #20 tabs 01/16/25 clavulanate 125 mg tablet ibuprofen 200 mg-phenylephrine HCl 1 tab PO Q4H PRN sinus symptoms 01/16/25 10 mg tablet (Sudafed PE Head #20 tabs Congestion-Pain) lidocaine HCl 2 % mucosal solution 10 ml PO Q4H PRN sore throat #100 01/16/25 (Lidocaine Viscous) mL ondansetron 4 mg disintegrating 4 mg PO Q8H PRN nausea and 01/16/25 tablet vomiting #10 tabs cephalexin 500 mg capsule 500 mg PO QID #28 caps 01/18/25 triamcinolone acetonide 0.025 % 1 applic topical BID #15 grams 01/18/25 topical ointment dicyclomine 20 mg tablet 20 mg PO BID #6 tabs 01/30/25 diphenhydramine HCl 2 % topical 1 applic topical BID PRN skin 02/11/25 gel (Benadryl) irritation #103 mL Allergies Allergy/AdvReac Type Severity Reaction Status Date / Time No Known Allergies Allergy Verified 02/11/25 22:42 Review of Systems Review of Systems Systems Reviewed: All systems reviewed, normal except as documented Integumentary/Breasts Skin/Breast: Reports as per HPI and Reports other (burning skin) Past Medical History Past Medical History NEUROLOGIC: Negative Neurological Disorders or Seizures CARDIAC: Negative Cardiac Disorders or Congestive Heart Failure RESPIRATORY: Negative Chronic Obstructive Pulmonary Disease (COPD) or Asthma GASTROINTESTINAL: Negative Gastrointestinal Disorders GENITOURINARY: Negative Genitourinary Disorders or Renal Disease MUSCULOSKELETAL: Negative Musculoskeletal Disorders ENDOCRINE: Negative Endocrine Disorders, Diabetes Mellitus Type 1 or Diabetes Mellitus Type 2 HEMATOLOGIC: Negative Blood Disorders or Sickle Cell Disease PSYCHO/SOCIAL: Positive Recreational Drug Use OTHER HISTORY: Positive Chicken Pox; Negative Hospitalization, Blood Transfusions, Blood Transfusion Reaction, Anesthesia Reactions or Cancer Social History SMOKING STATUS: Never smoker SUBSTANCE USE: methamphetamine ED Exam General Limitations: Present no limitations General appearance: Present alert and in no apparent distress Head Head exam: Present atraumatic Neck Neck exam: Present normal inspection, full ROM and trachea midline Chest Chest inspection: Present normal inspection and symmetric chest wall rise Neurological Exam Neurological exam: Present alert and oriented X3 Psychiatric Psychiatric exam: Present normal affect and normal mood Skin Skin exam: Present warm, dry, intact and normal color Course Quality Measures none Orders Category Date Time Status Dexamethasone Inj [Decadron Inj] Med 02/11/25 23:09 Discontinued 10 mg PO X1 ONE Vital Signs Vital signs: Vital Signs Temperature 98.2 F 02/11/25 22:46 Pulse Rate 103 H 02/11/25 22:46 Respiratory Rate 19 02/11/25 22:46 Blood Pressure 164/99 H 02/11/25 22:46 Pulse Oximetry (%) 99 02/11/25 22:46 Oxygen Delivery Method Room Air 02/11/25 22:46 O2 at 99% on RA and WNLs Skin / Abscess / Foreign Body MDM Narrative MDM Narrative:: 39M with history of drug/psych presents to ED with burning sensation on scalp. Physical exam reveals no rash, redness, or swelling on rash. Patient is afebrile, calm, and alert. Meds and director counseling bureau given. Patient data External records reviewed:: [facility] previous records Clinical information provided by:: patient Social determinants that could affect healthcare access:: mental health Patient has the following chronic illnesses:: psych/drug How is presenting disease/condition affected by chronic disease/condition?: exacerbated by Evaluation data The following diagnostics were reviewed and interpreted by me:: other (specify) (none) Lab and/or radiology exams considered but not ordered:: not ordered Interpretation Summary: n/a Medications / Prescriptions Medications or Prescriptions considered but not ordered:: ordered Medication administrations:: Medication Administration History Discontinued Medications Dexamethasone Sodium Phosphate (Dexamethasone Sod Phos Inj 10 Mg/Ml Vial) 10 mg PO X1 ONE Stop: 02/11/25 23:10 Last Admin: 02/11/25 23:25 Dose: 10 mg Documented By: BD Comments: GIVEN PO above Consultations Consultation(s) initiated? (list below): No Diagnosis Skin/Abscess Differential Diagnosis: abscess of skin or subcutaneous tissue, viral exanthem, dermatophytosis, urticaria, herpes zoster, allergic reaction to drug, cellulitis, eczema, insect bites, impetigo, contact dermatitis and other (burning skin) Most likely diagnosis given after review of the tests above:: burning skin Admission Indicated Admission indicated?: not indicated Admission Request Was there a request for admission?: No Disposition Plan Disposition Plan: Discharge Discharge Attestation Discharge Attestation: The patient and all family members were given an opportunity to ask questions and understood the discharge instructions. Discharge instructions specifically effects, indications for sooner follow up or return to the emergency department, and the expected course of current diagnosis. Patient condition: Stable Discharge Plan Plan Patient Disposition: HOME (Self Care) Discharge Disposition comment: Stable Prescriptions/Referrals Prescriptions/Med Rec: New Benadryl 2 % gel 1 applic topical BID PRN (Reason: skin irritation) Qty: 103 0RF No Action cetirizine-pseudoephedrine [Zyrtec-D] 5-120 mg tablet extended release 12 hr 1 tab PO BID PRN (Reason: sinus symptoms) Qty: 14 0RF diphenhydramine HCl [Benadryl] 25 mg capsule 25 mg PO Q8H PRN (Reason: allergic symptoms) Qty: 30 0RF ibuprofen 600 mg tablet 600 mg PO QID PRN (Reason: pain) Qty: 20 0RF ciprofloxacin HCl [Cipro] 500 mg tablet 500 mg PO BID Qty: 14 0RF metronidazole 500 mg tablet 500 mg PO BID Qty: 14 0RF dicyclomine 20 mg tablet 20 mg PO BID Qty: 20 0RF hydroxyzine HCl 50 mg tablet 50 mg PO Q6H PRN (Reason: anxiety) Qty: 20 0RF amoxicillin-pot clavulanate 875-125 mg tablet 1 tab PO BID Qty: 14 0RF ibuprofen 600 mg tablet 600 mg PO Q8H PRN (Reason: pain) Qty: 30 0RF acetaminophen 325 mg tablet 650 mg PO TID PRN (Reason: pain) Qty: 30 0RF lidocaine [Lidoderm] 5 % adhesive patch,medicated 2 patch topical QDAY PRN (Reason: pain) Qty: 30 0RF Rx Instructions: leave on most painful area for up to 12 hrs ibuprofen 600 mg tablet 600 mg PO Q8H PRN (Reason: pain) Qty: 14 0RF tizanidine 4 mg tablet 4 mg PO BID PRN (Reason: muscle spasticity) Qty: 20 0RF acetaminophen 500 mg tablet 500 mg PO Q6H PRN (Reason: pain) Qty: 30 0RF hydroxyzine pamoate 25 mg capsule 25 mg PO BID PRN (Reason: anxiety) Qty: 10 0RF albuterol sulfate [Ventolin HFA] 90 mcg/actuation HFA aerosol inhaler 1 inh inhalation Q4H PRN (Reason: shortness of breath or wheezing) Qty: 8.5 0RF amoxicillin-pot clavulanate 875-125 mg tablet 1 tab PO BID Qty: 20 0RF lidocaine HCl [Lidocaine Viscous] 2 % solution 10 ml PO Q4H PRN (Reason: sore throat) Qty: 100 0RF ondansetron 4 mg tablet,disintegrating 4 mg PO Q8H PRN (Reason: nausea and vomiting) Qty: 10 0RF Sudafed PE Head Congestn-Pain 200-10 mg tablet 1 tab PO Q4H PRN (Reason: sinus symptoms) Qty: 20 0RF cyclobenzaprine 7.5 mg tablet 7.5 mg PO TID PRN (Reason: muscle spasm) Qty: 30 0RF hydrocodone-acetaminophen 5-325 mg tablet 1 tab PO BID MDD 10 PRN (Reason: pain) Qty: 14 0RF sumatriptan succinate [Imitrex] 25 mg tablet 25 mg PO Q2H PRN (Reason: migraine headache) Qty: 10 0RF Rx Instructions: do not exceed 8 doses per 24 hrs ondansetron 4 mg tablet,disintegrating 4 mg PO Q8H PRN (Reason: nausea and vomiting) Qty: 20 0RF ibuprofen 800 mg tablet 800 mg PO Q8H PRN (Reason: pain) Qty: 20 0RF dicyclomine 20 mg tablet 20 mg PO QID PRN (Reason: abdominal pain) Qty: 30 0RF cephalexin 500 mg capsule 500 mg PO QID Qty: 40 0RF ondansetron 4 mg tablet,disintegrating 4 mg PO Q8H PRN (Reason: nausea and vomiting) Qty: 20 0RF albuterol sulfate [Ventolin HFA] 90 mcg/actuation HFA aerosol inhaler 2 puff inhalation Q6H PRN (Reason: shortness of breath or wheezing) Qty: 8.5 0RF triamcinolone acetonide 0.025 % ointment 1 applic topical BID Qty: 15 0RF cephalexin 500 mg capsule 500 mg PO QID Qty: 28 0RF dicyclomine 20 mg tablet 20 mg PO BID Qty: 6 0RF Problem List Clinical Impression: Burning sensation of skin Patient/Caregiver Discharge Instructions Education Materials: ED Paraesthesias Additional Instructions: Please follow-up with PCP within 24-48 hours and return immediately if symptoms worsen. Print Language: Frisian Stand Alone Forms: Patient Portal Info Letter PA/CAFE ASSOCIATE Supervising Physician PA/CAFE ASSOCIATE Supervising Physician: Dr. Bloom
== END 2025-02-11 23:27 | disposition home or self-care (01) ==
PROVIDERS: Emergency Provider Emergency Medicine
DX: R20.8 Other disturbances of skin sensation (principal)
CPT/HCPCS: 99283; J1100

== ENCOUNTER 2025-02-18 10:10 | Emergency (ER) | payer MEDICAID, SELFPAY ==
[2025-02-18 10:11] VITALS: BP 172/109; BP 176/110; PULSE 114; RESP 18; TEMP 36.9; O2SAT 99
--- NOTE | 2025-02-18 10:22 | XR_ITS ---
EXAMINATION: PA lateral chest 2 views TECHNIQUE: Upright PA and lateral chest 2 views Date and time: February 18, 2025, 10:30 a.m. INDICATION: Chest pain headaches nausea weakness dizziness beginning 2 days ago FINDINGS: Normal heart size The osseous structures are intact No pneumonia or pulmonary edema IMPRESSION: No active disease
--- NOTE | 2025-02-18 10:22 | EKG_ITS ---
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
[2025-02-18 10:38] LABS: Basophils # (Auto) 0.0 Thou/mm3 (0.0-0.2); Basophils % (Auto) 0 % (0-2.5); Eosinophils # (Auto) 0.0 Thou/mm3 (0.0-0.5); Eosinophils % (Auto) 0 % (0-10); Hematocrit 44.6 % (41.0-53.0); Hemoglobin 15.6 g/dL (13.5-16.0); Immature Granulocytes Auto 0.03 Thou/mm3 (0.00-0.00); Lymphocytes # (Auto) 1.5 Thou/mm3 (1.0-4.8); Lymphocytes % (Auto) 14 % (10-50); Mean Corpuscular HGB Conc 35.0 g/dl (31.0-37.0); Mean Corpuscular Hemoglobin 31.0 pg (25.0-35.0); Mean Corpuscular Volume 89 fL (80-100); Monocytes # (Auto) 0.6 Thou/mm3 (0.0-0.8); Monocytes % (Auto) 5 % (0-12); Neutrophils # (Auto) 8.4 Thou/mm3 (1.8-7.7); Neutrophils % (Auto) 80 % (37-80); Nucleated Red Blood Cell # 0.00 Thou/mm3 (0.00-0.00); Nucleated Red Blood Cell % 0 /100 WBC (0); Platelet Count 356 Thou/mm3 (140-440); RDW Standard Deviation 41.5 fL (35.1-43.9); Red Blood Count 5.03 Miln/mm3 (4.50-5.90); White Blood Count 10.4 Thou/mm3 (3.8-10.6)
--- NOTE | 2025-02-18 10:46 | PD.EDRME ---
Rapid Medical Screening Exam RME Arrival date/time: 02/18/25 10:10 39-year-old male presents the emergency department complaints of dizziness today Chief Complaint: Dizziness
[2025-02-18 11:04] LABS: Alanine Aminotransferase 19 U/L (10-49); Albumin, Serum 4.7 gm/dL (3.5-5.0); Albumin/Globulin Ratio 2.0 (1.2-2.2); Alkaline Phosphatase 84 U/L (46-116); Anion Gap 12 (7-16); Aspartate Amino Transferase 48 U/L (0-34); BUN/Creatinine Ratio 6 Ratio (12-20); Bilirubin,Total 0.3 mg/dL (0.3-1.2); Blood Urea Nitrogen < 5 mg/dL (9-23); Calcium 9.4 mg/dL (8.3-10.6); Calcium (Corrected) 9.4 mg/dL (8.5-10.1); Carbon Dioxide 26.2 mMol/L (20.0-31.0); Chloride 104 mMol/L (98-107); Creatinine (Component) 0.9 mg/dL (0.6-1.3); Globulin 2.3 gm/dL (2.3-3.5); Glucose 106 mg/dL (74-106); Osmolality,Calculated 280 (275-295); Potassium 3.7 mMol/L (3.4-5.1); Sodium 142 mMol/L (136-145); Total Protein 7.0 gm/dL (5.7-8.2); Troponin I < 0.020 ng/mL (0.0-0.045); eGFR > 60 See Note
--- NOTE | 2025-02-18 15:00 | PC.NURSE ---
NO ANSWER BY MIRLANDE PATEL WHEN CALLED FROM [facility]
--- NOTE | 2025-02-18 15:51 | PC.NURSE ---
NO ANSWER WHEN CALLED FROM [facility]
--- NOTE | 2025-02-18 16:05 | PC.NURSE ---
NA X 3 WHEN CALLED FROM THE [facility] AND OUTSIDE.
== END 2025-02-18 16:07 | disposition left against medical advice (07) ==
PROVIDERS: Nurse Practitioner Primary Care; Emergency Provider Family Medicine; PCP Family Medicine
DX: Z53.21 Procedure and treatment not carried out due to patient leaving prior to being seen by health care provider (principal)
CPT/HCPCS: 36415; 71046; 80053; 80307; 84484; 85025; 93005; 99283

== ENCOUNTER 2025-02-18 23:04 | Emergency (ER) | payer MEDICAID, SELFPAY ==
[2025-02-18 23:05] VITALS: PULSE 80; RESP 18; BMI 21.4
[2025-02-19] VITALS: BP 166/111; BP 169/107; PULSE 79; RESP 18; TEMP 36.8; O2SAT 100
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
--- NOTE | 2025-02-19 00:28 | XR_ITS ---
Examination: CT chest, without intravenous contrast. CT abdomen, without intravenous contrast. CT pelvis, without intravenous contrast. 2-D sagittal and coronal reconstructions. 3-D reconstructions. Date and time of exam: February 19, 2025, 0044 hours INDICATIONS: Shortness of breath chest pain abdominal pain onset today CTDI vol (mgy) 8.44 DLP (MGycm) 644 Technique: Multiple CT images, 3.0 mm slice thickness, obtained chest, abdomen, pelvis, with the high-resolution 64 slice scanner.. Sagittal and coronal 2-D reconstructions are obtained. 3-D reconstructions Low dose protocols were performed. One or more of the following dose reduction techniques were used; automated exposure control, adjustment of the mA and/or KV according to patient size, use of iterative reconstruction technique. Findings: No thoracic aortic aneurysm dilatation Pulmonary artery segments are not enlarged No mediastinal lymphadenopathy. No pneumonia, pulmonary edema or pleural disease No liver or splenic lesions No gallstones No pancreatic or adrenal mass No renal or ureteral calculi, no hydronephrosis Abdominal aorta normal size No bowel obstruction Normal appendix No diverticulitis Normal seminal vesicles No prostate abnormality No bladder mass or bladder calculi Adequate bone density IMPRESSION: No acute process in the chest abdomen or pelvis
--- NOTE | 2025-02-19 00:29 | XR_ITS ---
Examination: CT brain head without contrast. 2-D sagittal coronal reconstructions Date and time of exam: February 19, 2025, 0044 hours, comparison 01/18/2025 INDICATIONS: Onset headache today CTDI: vol (mGy): 46.1 DLP: (mGycm): 882 Technique: Multiple CT axial sections of the brain have been obtained, 5 mm slice thickness. Contrast has not been administered. 2-D sagittal, coronal reconstructions have been obtained Low dose protocols were performed. One or more of the following dose reduction techniques were used; automated exposure control, adjustment of the mA and/or KV according to patient size, use of iterative reconstruction technique. Findings: No significant ventricular enlargement. Intra-axial or extra-axial hemorrhage density is not seen. No mass effect or midline shift Basal cisterns are not remarkable. Fourth ventricle is midline. Cranial vault intact. Impression: Negative for acute hemorrhage, mass effect or midline shift
--- NOTE | 2025-02-19 00:29 | XR_ITS ---
EXAMINATION: AP chest single view TECHNIQUE: AP portable upright chest single view Date and time: February 19, 2025, 0047 hours, comparison February 18, 2025 INDICATIONS: Shortness of breath chest pain and headache beginning today FINDINGS: Normal heart size Lungs are clear. The osseous structures are intact IMPRESSION: No active disease
[2025-02-19 00:43] LABS: Basophils # (Auto) 0.0 Thou/mm3 (0.0-0.2); Basophils % (Auto) 0 % (0-2.5); Eosinophils # (Auto) 0.0 Thou/mm3 (0.0-0.5); Eosinophils % (Auto) 0 % (0-10); Hematocrit 46.3 % (41.0-53.0); Hemoglobin 15.5 g/dL (13.5-16.0); Immature Granulocytes Auto 0.03 Thou/mm3 (0.00-0.00); Lymphocytes # (Auto) 2.0 Thou/mm3 (1.0-4.8); Lymphocytes % (Auto) 24 % (10-50); Mean Corpuscular HGB Conc 33.5 g/dl (31.0-37.0); Mean Corpuscular Hemoglobin 30.2 pg (25.0-35.0); Mean Corpuscular Volume 90 fL (80-100); Monocytes # (Auto) 0.6 Thou/mm3 (0.0-0.8); Monocytes % (Auto) 7 % (0-12); Neutrophils # (Auto) 5.6 Thou/mm3 (1.8-7.7); Neutrophils % (Auto) 68 % (37-80); Nucleated Red Blood Cell # 0.00 Thou/mm3 (0.00-0.00); Nucleated Red Blood Cell % 0 /100 WBC (0); Platelet Count 341 Thou/mm3 (140-440); RDW Standard Deviation 42.3 fL (35.1-43.9); Red Blood Count 5.13 Miln/mm3 (4.50-5.90); White Blood Count 8.3 Thou/mm3 (3.8-10.6)
[2025-02-19 00:53] LABS: Sed Rate (ESR) 9 mm/hr (0-15)
[2025-02-19 01:01] VITALS: BP 169/107; PULSE 80
[2025-02-19] MEDS: ONDANSETRON ODT 4 MG TABRAP PO (01:03)
[2025-02-19 01:20] LABS: Alanine Aminotransferase 31 U/L (10-49); Albumin, Serum 4.8 gm/dL (3.5-5.0); Albumin/Globulin Ratio 2.1 (1.2-2.2); Alcohol, Blood Medical < 3.0 mg/dL (0-10.0); Alkaline Phosphatase 78 U/L (46-116); Anion Gap 10 (7-16); Aspartate Amino Transferase 111 U/L (0-34); BUN/Creatinine Ratio 6 Ratio (12-20); Bilirubin,Direct 0.1 mg/dL (0.0-0.3); Bilirubin,Total 0.5 mg/dL (0.3-1.2); Blood Urea Nitrogen < 5 mg/dL (9-23); C-Reactive Protein < 0.5 mg/dL (0.0-0.9); Calcium 9.5 mg/dL (8.3-10.6); Calcium (Corrected) 9.5 mg/dL (8.5-10.1); Carbon Dioxide 27.5 mMol/L (20.0-31.0); Chloride 103 mMol/L (98-107); Creatinine (Component) 0.9 mg/dL (0.6-1.3); Estimated Creatinine Clearance 98.8 mL/min (>60); Globulin 2.3 gm/dL (2.3-3.5); Glucose 101 mg/dL (74-106); Lipase 33 U/L (12-53); Magnesium 2.0 mg/dL (1.6-2.6); Osmolality,Calculated 276 (275-295); Potassium 3.4 mMol/L (3.4-5.1); Procalcitonin 0.05 ng/ml (0.0-0.49); Sodium 140 mMol/L (136-145); Thyroid Stimulating Hormone 0.75 uIU/mL (0.55-4.78); Total Protein 7.1 gm/dL (5.7-8.2); Troponin I < 0.020 ng/mL (0.0-0.045); eGFR > 60 See Note
[2025-02-19 01:29] LABS: Amphetamine/Methamp Scrn,U Positive (Negative); Barbiturate Screen,Urine Negative (Negative); Benzodiazepines Screen,Urine Negative (Negative); Benzoylecgonine Screen, Ur Negative (Negative); Fentanyl Screen,Urine Negative (Negative); Opiate Screen,Urine Negative (Negative); THC Screen,Urine Positive (Negative)
[2025-02-19 02:03] LABS: Influenza A Ag Negative; Influenza B Ag Negative
--- NOTE | 2025-02-19 02:04 | PRELIM_ITS ---
CT scan of the head without intravenous contrast (axial sections with sagittal and coronal reformats). February 19, 2025 at 0044 hours Clinical History: Headache Comparison: January 18, 2025. Findings: There is no evidence of intracranial hemorrhage, mass effect or midline shift. The ventricles, sulci and basal cisterns are unremarkable. The mastoid air cells and visualized paranasal sinuses are clear. Impression: No evidence of intracranial hemorrhage or mass effect. Report Electronically Signed By: David Moctezuma 02/19/2025 2:03:36 AM [EST]
[2025-02-19 02:10] VITALS: BP 147/103; PULSE 82; RESP 18; TEMP 36.6; O2SAT 99
--- NOTE | 2025-02-19 02:20 | PRELIM_ITS ---
CT chest abdomen and pelvis without intravenous contrast (axial images with sagittal and coronal reconstructions) Clinical history: Shortness of breath, abdominal pain Findings: Cardiac size is normal. No pericardial effusion, pleural effusion or pneumothorax. Clear lungs. The chest wall is unremarkable. The liver, gallbladder, spleen, adrenal glands, pancreas and kidneys are unremarkable. The appendix is normal, best seen on image [id number]. The urinary bladder is normal. No free intraperitoneal air or fluid. Bowel caliber is normal. No urinary tract stone or obstruction is identified. No acute osseous process. Impression: No acute process of the chest, abdomen or pelvis. Report Electronically Signed By: David Moctezuma 02/19/2025 2:19:35 AM [EST]
== END 2025-02-19 02:30 | disposition home or self-care (01) ==
PROVIDERS: Emergency Provider Emergency Medicine
DX: F15.90 Other stimulant use, unspecified, uncomplicated (principal); Z79.899 Other long term (current) drug therapy
CPT/HCPCS: 36415; 70450; 71045; 71250; 74176; 80053; 80307; 80320; 82248; 83690; 83735; 84145; 84443; 84484; 85025; 85652; 86140; 87502; 87811; 93005; 99284; Q0162; A9270; G0480

== ENCOUNTER 2025-03-05 05:10 | Emergency (ER) | payer MEDICAID, SELFPAY ==
[2025-03-05 05:12] VITALS: BMI 21.1
[2025-03-05 05:22] VITALS: BP 126/90; PULSE 95; RESP 17; TEMP 36.8; O2SAT 96
--- NOTE | 2025-03-05 05:28 | XR_ITS ---
EXAMINATION: PA chest single view TECHNIQUE: Upright PA chest single view Date and time: March 05, 2025, 0547 hours INDICATIONS: Onset chest pain today FINDINGS: Normal heart size Lungs are clear. The osseous structures are intact IMPRESSION: No active disease
--- NOTE | 2025-03-05 05:28 | EKG_ITS ---
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
--- NOTE | 2025-03-05 05:29 | PD.EDRME ---
Rapid Medical Screening Exam RME Arrival date/time: 03/05/25 05:10 This is a case of 39-year-old male who came into the emergency room due to chest pain no other symptoms noted for 2 days persistence of the symptoms this patient decided to start consequent emergent room Chief Complaint: Chest Pain Time Seen by Provider: 03/05/25 05:28 Vital signs: Vital Signs Temperature 98.2 F 03/05/25 05:22 Pulse Rate 95 03/05/25 05:22 Respiratory Rate 17 03/05/25 05:22 Blood Pressure 126/90 H 03/05/25 05:22 Pulse Oximetry (%) 96 03/05/25 05:22 Oxygen Delivery Method Room Air 03/05/25 05:22 Exam: NRRR clear breath sound Clinical Impression: Chest pain
--- NOTE | 2025-03-05 06:12 | PC.NURSE ---
PT INFORMED ME THAT HE IS LEAVING.
== END 2025-03-05 06:12 | disposition left against medical advice (07) ==
LOC: SERX 05:31
PROVIDERS: Emergency Provider Emergency Medicine
DX: Z53.21 Procedure and treatment not carried out due to patient leaving prior to being seen by health care provider (principal)
CPT/HCPCS: 71045; 84484; 93005; 99282

== ENCOUNTER 2025-03-10 06:49 | Emergency (ER) | payer MEDICAID, SELFPAY ==
[2025-03-10 06:49] VITALS: BP 165/99; PULSE 110; RESP 18; TEMP 36.7; O2SAT 99
[2025-03-10] MEDS: IBUPROFEN TAB 400 MG TABLET 800 MG PO (07:17)
--- NOTE | 2025-03-10 07:19 | PD.EDADULT ---
ED General RME/HPI General Chief complaint: General Adult/Misc Complain Stated complaint: FEVER, BACK PAIN Time Seen by Provider: 03/10/25 07:03 Arrival date/time: 03/10/25 06:49 39-year-old male well-known to me with history of methamphetamine abuse anxiety and psychiatric disorder presents to the emergency department for complaints of generalized back pain anxiety patient reports no chest pain or shortness of breath no headache dizziness weakness no abdominal pain Limitations: no limitations Related Data Previous Rx's ?Medication ?Instructions ?Recorded cetirizine 5 mg-pseudoephedrine ER 1 tab PO BID PRN sinus symptoms 08/30/21 120 mg tablet,extended #14 tabs release,12hr (Zyrtec-D) diphenhydramine HCl 25 mg capsule 25 mg PO Q8H PRN allergic symptoms 09/23/22 (Benadryl) #30 caps ibuprofen 600 mg tablet 600 mg PO QID PRN pain #20 tabs 09/23/22 ciprofloxacin HCl 500 mg tablet 500 mg PO BID #14 tabs 11/29/22 (Cipro) dicyclomine 20 mg tablet 20 mg PO BID #20 tabs 11/29/22 metronidazole 500 mg tablet 500 mg PO BID #14 tabs 11/29/22 cyclobenzaprine 7.5 mg tablet 7.5 mg PO TID PRN muscle spasm #30 12/03/22 tabs hydrocodone 5 mg-acetaminophen 325 1 tab PO BID PRN pain #14 tabs 01/16/23 mg tablet hydroxyzine HCl 50 mg tablet 50 mg PO Q6H PRN anxiety #20 tabs 01/18/24 amoxicillin 875 mg-potassium 1 tab PO BID #14 tabs 02/07/24 clavulanate 125 mg tablet acetaminophen 325 mg tablet 650 mg (2 x 325 mg) PO TID PRN 02/11/24 pain #30 tabs ibuprofen 600 mg tablet 600 mg PO Q8H PRN pain #30 tabs 02/11/24 ibuprofen 600 mg tablet 600 mg PO Q8H PRN pain #14 tabs 02/15/24 lidocaine 5 % topical patch 2 patch topical QDAY PRN pain #30 02/15/24 (Lidoderm) ea acetaminophen 500 mg tablet 500 mg PO Q6H PRN pain #30 tabs 09/15/24 tizanidine 4 mg tablet 4 mg PO BID PRN muscle spasticity 09/15/24 #20 tabs sumatriptan succinate 25 mg tablet 25 mg PO Q2H PRN migraine headache 10/08/24 (Imitrex) #10 tabs albuterol sulfate 90 mcg/actuation 1 inh inhalation Q4H PRN shortness 11/06/24 aerosol inhaler (Ventolin HFA) of breath or wheezing #8.5 grams hydroxyzine pamoate 25 mg capsule 25 mg PO BID PRN anxiety #10 caps 11/06/24 ibuprofen 800 mg tablet 800 mg PO Q8H PRN pain #20 tabs 12/21/24 ondansetron 4 mg disintegrating 4 mg PO Q8H PRN nausea and 12/21/24 tablet vomiting #20 tabs dicyclomine 20 mg tablet 20 mg PO QID PRN abdominal pain 12/27/24 #30 tabs cephalexin 500 mg capsule 500 mg PO QID #40 caps 12/28/24 albuterol sulfate 90 mcg/actuation 2 puff inhalation Q6H PRN 01/03/25 aerosol inhaler (Ventolin HFA) shortness of breath or wheezing #8.5 grams ondansetron 4 mg disintegrating 4 mg PO Q8H PRN nausea and 01/03/25 tablet vomiting #20 tabs amoxicillin 875 mg-potassium 1 tab PO BID #20 tabs 01/16/25 clavulanate 125 mg tablet ibuprofen 200 mg-phenylephrine HCl 1 tab PO Q4H PRN sinus symptoms 01/16/25 10 mg tablet (Sudafed PE Head #20 tabs Congestion-Pain) lidocaine HCl 2 % mucosal solution 10 ml PO Q4H PRN sore throat #100 01/16/25 (Lidocaine Viscous) mL ondansetron 4 mg disintegrating 4 mg PO Q8H PRN nausea and 01/16/25 tablet vomiting #10 tabs cephalexin 500 mg capsule 500 mg PO QID #28 caps 01/18/25 triamcinolone acetonide 0.025 % 1 applic topical BID #15 grams 01/18/25 topical ointment dicyclomine 20 mg tablet 20 mg PO BID #6 tabs 01/30/25 diphenhydramine HCl 2 % topical 1 applic topical BID PRN skin 02/11/25 gel (Benadryl) irritation #103 mL cyclobenzaprine 10 mg tablet 10 mg PO TID PRN muscle spasm 10 03/10/25 days #10 tabs ibuprofen 600 mg tablet 600 mg PO Q6H #30 tabs 03/10/25 Allergies Allergy/AdvReac Type Severity Reaction Status Date / Time No Known Allergies Allergy Verified 03/05/25 05:11 Review of Systems Review of Systems Systems Reviewed: All systems reviewed, normal except as documented Constitutional Constitutional: Reports system reviewed and no additional complaints, except as documented, Denies fever(s) and Denies headache(s) Eyes Eyes: Reports system reviewed and no additional complaints, except as documented and Denies blurry vision ENT Ears, Nose, Mouth, and Throat: Reports system reviewed and no additional complaints, except as documented, Denies headache(s), Denies nasal congestion and Denies nasal discharge Cardiovascular Cardiovascular: Reports system reviewed and no additional complaints, except as documented, Denies chest pain and Denies dyspnea Respiratory Respiratory: Reports system reviewed and no additional complaints, except as documented, Denies chest congestion, Denies cough and Denies dyspnea Gastrointestinal Gastrointestinal: Reports system reviewed and no additional complaints, except as documented and Denies abdominal pain Musculoskeletal Musculoskeletal: Reports system reviewed and no additional complaints, except as documented and Reports back pain Integumentary/Breasts Skin/Breast: Reports system reviewed and no additional complaints, except as documented and Denies rash Neurologic Neurologic: Reports system reviewed and no additional complaints, except as documented, Reports as per HPI and Denies headache(s) Psychiatric Psychiatric: Reports system reviewed and no additional complaints, except as documented and Reports anxiety Past Medical History Past Medical History NEUROLOGIC: Negative Neurological Disorders or Seizures CARDIAC: Negative Cardiac Disorders or Congestive Heart Failure RESPIRATORY: Negative Chronic Obstructive Pulmonary Disease (COPD) or Asthma GASTROINTESTINAL: Negative Gastrointestinal Disorders GENITOURINARY: Negative Genitourinary Disorders or Renal Disease MUSCULOSKELETAL: Negative Musculoskeletal Disorders ENDOCRINE: Negative Endocrine Disorders, Diabetes Mellitus Type 1 or Diabetes Mellitus Type 2 HEMATOLOGIC: Negative Blood Disorders or Sickle Cell Disease PSYCHO/SOCIAL: Positive Recreational Drug Use OTHER HISTORY: Positive Chicken Pox; Negative Hospitalization, Blood Transfusions, Blood Transfusion Reaction, Anesthesia Reactions or Cancer Social History SMOKING STATUS: Former smoker SUBSTANCE USE: methamphetamine ED Exam General Limitations: Present no limitations General appearance: Present alert and in no apparent distress Head Head exam: Present atraumatic and normal inspection Eye Eye exam: Present normal appearance, PERRL and EOMI ENT ENT exam: Present normal exam, normal oropharynx and mucous membranes moist Neck Neck exam: Present normal inspection, full ROM and trachea midline Chest Chest inspection: Present normal inspection and symmetric chest wall rise Respiratory Respiratory exam: Present normal lung sounds bilaterally Cardiovascular Cardiovascular exam: Present regular rate, normal rhythm and normal heart sounds Abdominal Exam Abdominal exam: Present soft and normal bowel sounds Extremities Exam Extremities exam: Present normal inspection and full ROM Back Exam Back exam: Present normal inspection and full ROM Neurological Exam Neurological exam: Present alert, oriented X3, CN II-XII intact, normal gait and reflexes normal Psychiatric Psychiatric exam: Present normal affect and normal mood; Absent depressed, agitated, anxious, flat affect, manic, homicidal ideation or suicidal ideation Skin Skin exam: Present warm, dry, intact and normal color Course Quality Measures none Orders Category Date Time Status Ibuprofen Tab [Motrin Tab] Med 03/10/25 07:03 Discontinued 800 mg PO X1 ONE Vital Signs Vital signs: Vital Signs Temperature 98.0 F 03/10/25 06:49 Pulse Rate 110 H 03/10/25 06:49 Respiratory Rate 18 03/10/25 06:49 Blood Pressure 165/99 H 03/10/25 06:49 Pulse Oximetry (%) 99 03/10/25 06:49 Oxygen Delivery Method Room Air 03/10/25 06:49 O2 saturation 9 9% room air with normal limits Discharge Plan Plan Patient Disposition: HOME (Self Care) Discharge Disposition comment: Stable Prescriptions/Referrals Prescriptions/Med Rec: New cyclobenzaprine 10 mg tablet 10 mg PO TID PRN (Reason: muscle spasm) 10 Days Qty: 10 0RF ibuprofen 600 mg tablet 600 mg PO Q6H Qty: 30 0RF No Action cetirizine-pseudoephedrine [Zyrtec-D] 5-120 mg tablet extended release 12 hr 1 tab PO BID PRN (Reason: sinus symptoms) Qty: 14 0RF diphenhydramine HCl [Benadryl] 25 mg capsule 25 mg PO Q8H PRN (Reason: allergic symptoms) Qty: 30 0RF ibuprofen 600 mg tablet 600 mg PO QID PRN (Reason: pain) Qty: 20 0RF ciprofloxacin HCl [Cipro] 500 mg tablet 500 mg PO BID Qty: 14 0RF metronidazole 500 mg tablet 500 mg PO BID Qty: 14 0RF dicyclomine 20 mg tablet 20 mg PO BID Qty: 20 0RF hydroxyzine HCl 50 mg tablet 50 mg PO Q6H PRN (Reason: anxiety) Qty: 20 0RF amoxicillin-pot clavulanate 875-125 mg tablet 1 tab PO BID Qty: 14 0RF ibuprofen 600 mg tablet 600 mg PO Q8H PRN (Reason: pain) Qty: 30 0RF acetaminophen 325 mg tablet 650 mg PO TID PRN (Reason: pain) Qty: 30 0RF lidocaine [Lidoderm] 5 % adhesive patch,medicated 2 patch topical QDAY PRN (Reason: pain) Qty: 30 0RF Rx Instructions: leave on most painful area for up to 12 hrs ibuprofen 600 mg tablet 600 mg PO Q8H PRN (Reason: pain) Qty: 14 0RF tizanidine 4 mg tablet 4 mg PO BID PRN (Reason: muscle spasticity) Qty: 20 0RF acetaminophen 500 mg tablet 500 mg PO Q6H PRN (Reason: pain) Qty: 30 0RF hydroxyzine pamoate 25 mg capsule 25 mg PO BID PRN (Reason: anxiety) Qty: 10 0RF albuterol sulfate [Ventolin HFA] 90 mcg/actuation HFA aerosol inhaler 1 inh inhalation Q4H PRN (Reason: shortness of breath or wheezing) Qty: 8.5 0RF amoxicillin-pot clavulanate 875-125 mg tablet 1 tab PO BID Qty: 20 0RF lidocaine HCl [Lidocaine Viscous] 2 % solution 10 ml PO Q4H PRN (Reason: sore throat) Qty: 100 0RF ondansetron 4 mg tablet,disintegrating 4 mg PO Q8H PRN (Reason: nausea and vomiting) Qty: 10 0RF Sudafed PE Head Congestn-Pain 200-10 mg tablet 1 tab PO Q4H PRN (Reason: sinus symptoms) Qty: 20 0RF Benadryl 2 % gel 1 applic topical BID PRN (Reason: skin irritation) Qty: 103 0RF cyclobenzaprine 7.5 mg tablet 7.5 mg PO TID PRN (Reason: muscle spasm) Qty: 30 0RF hydrocodone-acetaminophen 5-325 mg tablet 1 tab PO BID MDD 10 PRN (Reason: pain) Qty: 14 0RF sumatriptan succinate [Imitrex] 25 mg tablet 25 mg PO Q2H PRN (Reason: migraine headache) Qty: 10 0RF Rx Instructions: do not exceed 8 doses per 24 hrs ondansetron 4 mg tablet,disintegrating 4 mg PO Q8H PRN (Reason: nausea and vomiting) Qty: 20 0RF ibuprofen 800 mg tablet 800 mg PO Q8H PRN (Reason: pain) Qty: 20 0RF dicyclomine 20 mg tablet 20 mg PO QID PRN (Reason: abdominal pain) Qty: 30 0RF cephalexin 500 mg capsule 500 mg PO QID Qty: 40 0RF ondansetron 4 mg tablet,disintegrating 4 mg PO Q8H PRN (Reason: nausea and vomiting) Qty: 20 0RF albuterol sulfate [Ventolin HFA] 90 mcg/actuation HFA aerosol inhaler 2 puff inhalation Q6H PRN (Reason: shortness of breath or wheezing) Qty: 8.5 0RF triamcinolone acetonide 0.025 % ointment 1 applic topical BID Qty: 15 0RF cephalexin 500 mg capsule 500 mg PO QID Qty: 28 0RF dicyclomine 20 mg tablet 20 mg PO BID Qty: 6 0RF Problem List Clinical Impression: Back pain Patient/Caregiver Discharge Instructions Education Materials: How Your Back Works Additional Instructions: Please follow up with your primary care doctor in the next 24-48hrs for any worsening symptoms return here immediately Print Language: Czech Stand Alone Forms: Selin Award Info., Patient Portal Info Letter PA/HEALTH RECORD TECHNICIAN Supervising Physician PA/HEALTH RECORD TECHNICIAN Supervising Physician: MDM Narrative MDM hospital course (for use when minimal MDM required): 39-year-old male well-known to me with history of methamphetamine abuse anxiety and psychiatric disorder presents to the emergency department for complaints of generalized back pain anxiety patient reports no chest pain or shortness of breath no headache dizziness weakness no abdominal pain Patient given ibuprofen for pain Clinically patient well-appearing does not appear toxic reports no suicidal or homicidal ideation Patient discharged home in no distress to follow-up with primary care doctor in the next 24 to 48 hours and for any worsening symptoms to return to the ER immediately Clinical Information Provided by: patient Medical Records reviewed [facility] Meds/Rx considered, not ordered None Labs/Rad/Tests considered, not ordered None Chronic Illness/Social Conditions which may negatively complicate care or outcome(s)-explain: None or not applicable EKG EKG not done Labs Labs: none Imaging Imaging interpretation: none Medication Administration(s) Medication Administration History Discontinued Medications Ibuprofen (Ibuprofen Tab 400 Mg Tablet) 800 mg PO X1 ONE Stop: 03/10/25 07:04 Last Admin: 03/10/25 07:17 Dose: 800 mg Documented By: BIANCA Given Diagnosis Differential Diagnosis ED Complaint MDM: Anxiety, stress reaction, back pain
== END 2025-03-10 07:20 | disposition home or self-care (01) ==
LOC: SERX 07:32
PROVIDERS: Emergency Provider Nurse Practitioner Primary Care; PCP Family Medicine
DX: M54.9 Dorsalgia, unspecified (principal)
CPT/HCPCS: 99281; A9270

== ENCOUNTER 2025-03-12 22:35 | Emergency (ER) | payer MEDICAID, SELFPAY ==
[2025-03-12 23:09] VITALS: BMI 20.8
[2025-03-12 23:20] VITALS: BP 178/125; BP 183/134; PULSE 90; RESP 18; TEMP 36.7; O2SAT 99
--- NOTE | 2025-03-12 23:44 | EKG_ITS ---
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
--- NOTE | 2025-03-12 23:44 | PD.EDRME ---
Rapid Medical Screening Exam RME Arrival date/time: 03/12/25 22:35 This is a case of 39-year-old male who came in the emergency room due to abdominal pain and generalized numbness with tingling sensation whole body today patient denies any chest pain shortness of breath or palpitation Chief Complaint: General Adult/Misc Complain Time Seen by Provider: 03/12/25 22:43 Vital signs: Vital Signs Temperature 98.0 F 03/12/25 23:20 Pulse Rate 90 03/12/25 23:20 Respiratory Rate 18 03/12/25 23:20 Blood Pressure 178/125 H 03/12/25 23:20 Pulse Oximetry (%) 99 03/12/25 23:20 Oxygen Delivery Method Room Air 03/12/25 23:20 Exam: Abdominal tenderness epigastric area no guarding no rebound no rigidity Clinical Impression: Abdominal pain
[2025-03-13 00:35] LABS: Collection Type, Urine Clean Catch; Squamous Epithelial Cell,Urine 0 /hpf (0-5)
[2025-03-13 00:36] LABS: Basophils # (Auto) 0.0 Thou/mm3 (0.0-0.2); Basophils % (Auto) 0 % (0-2.5); Eosinophils # (Auto) 0.1 Thou/mm3 (0.0-0.5); Eosinophils % (Auto) 1 % (0-10); Hematocrit 44.2 % (41.0-53.0); Hemoglobin 15.2 g/dL (13.5-16.0); Immature Granulocytes Auto 0.02 Thou/mm3 (0.00-0.00); Lymphocytes # (Auto) 1.3 Thou/mm3 (1.0-4.8); Lymphocytes % (Auto) 16 % (10-50); Mean Corpuscular HGB Conc 34.4 g/dl (31.0-37.0); Mean Corpuscular Hemoglobin 30.5 pg (25.0-35.0); Mean Corpuscular Volume 89 fL (80-100); Monocytes # (Auto) 0.6 Thou/mm3 (0.0-0.8); Monocytes % (Auto) 8 % (0-12); Neutrophils # (Auto) 5.9 Thou/mm3 (1.8-7.7); Neutrophils % (Auto) 75 % (37-80); Nucleated Red Blood Cell # 0.00 Thou/mm3 (0.00-0.00); Nucleated Red Blood Cell % 0 /100 WBC (0); Platelet Count 321 Thou/mm3 (140-440); RDW Standard Deviation 42.0 fL (35.1-43.9); Red Blood Count 4.98 Miln/mm3 (4.50-5.90); White Blood Count 7.9 Thou/mm3 (3.8-10.6)
[2025-03-13 00:40] LABS: Bilirubin,Urine Negative (Negative); Blood,Urine Negative (Negative); Clarity,Urine Clear (Clear/Hazy); Color,Urine Lt-Yellow (Lt Yel-Yel); Glucose, Urine Negative (Negative); Ketones,Urine Negative (Negative); Leukocyte Esterase,Urine Negative (Negative); Nitrite,Urine Negative (Negative); PH,Urine 6.5 (5.0-7.0); Protein,Urine Negative (Neg - Trace); RBC,Urine < 1 /hpf (0-3); Specific Gravity,Urine 1.020 (1.001-1.035); Urobilinogen,Urine Negative mg/dL (0.0-1.0); WBC,Urine 1 /hpf (0-5)
[2025-03-13 00:57] LABS: Alanine Aminotransferase 21 U/L (10-49); Albumin, Serum 5.0 gm/dL (3.5-5.0); Albumin/Globulin Ratio 2.5 (1.2-2.2); Alkaline Phosphatase 83 U/L (46-116); Anion Gap 7 (7-16); Aspartate Amino Transferase 28 U/L (0-34); BUN/Creatinine Ratio 10 Ratio (12-20); Bilirubin,Total 0.3 mg/dL (0.3-1.2); Blood Urea Nitrogen 10 mg/dL (9-23); Calcium 9.5 mg/dL (8.3-10.6); Calcium (Corrected) 9.5 mg/dL (8.5-10.1); Carbon Dioxide 27.6 mMol/L (20.0-31.0); Chloride 106 mMol/L (98-107); Creatinine (Component) 1.0 mg/dL (0.6-1.3); Estimated Creatinine Clearance 86.3 mL/min (>60); Globulin 2.0 gm/dL (2.3-3.5); Glucose 109 mg/dL (74-106); Lipase 41 U/L (12-53); Osmolality,Calculated 281 (275-295); Potassium 4.5 mMol/L (3.4-5.1); Sodium 141 mMol/L (136-145); Total Protein 7.0 gm/dL (5.7-8.2); Troponin I < 0.002 ng/mL (0.0-0.045); eGFR > 60 See Note
[2025-03-13 03:38] VITALS: BP 164/104; PULSE 83; RESP 20; TEMP 36.6; O2SAT 100
--- NOTE | 2025-03-13 03:52 | PD.EDABDPN ---
ED Abdominal Pain RME/HPI General Chief Complaint: General Adult/Misc Complain Stated complaint: BACK PAIN Time seen by provider: 03/12/25 22:43 Arrival date/time: 03/12/25 22:35 This is a case of 39-year-old male who have history of polysubstance abuse and anxiety came in in the emergency room due to epigastric abdominal pain with nausea vomiting for 1 day patient had multiple visit here in the emergency room last visit was March 10, 2025 Limitations: no limitations RME / HPI RME / HPI narrative: 03/12/25 22:35 This is a case of 39-year-old male who came in the emergency room due to abdominal pain and generalized numbness with tingling sensation whole body today patient denies any chest pain shortness of breath or palpitation Exam: Abdominal tenderness epigastric area no guarding no rebound no rigidity Impression: Abdominal pain Related Data Previous Rx's ?Medication ?Instructions ?Recorded cetirizine 5 mg-pseudoephedrine ER 1 tab PO BID PRN sinus symptoms 08/30/21 120 mg tablet,extended #14 tabs release,12hr (Zyrtec-D) diphenhydramine HCl 25 mg capsule 25 mg PO Q8H PRN allergic symptoms 09/23/22 (Benadryl) #30 caps ibuprofen 600 mg tablet 600 mg PO QID PRN pain #20 tabs 09/23/22 ciprofloxacin HCl 500 mg tablet 500 mg PO BID #14 tabs 11/29/22 (Cipro) dicyclomine 20 mg tablet 20 mg PO BID #20 tabs 11/29/22 metronidazole 500 mg tablet 500 mg PO BID #14 tabs 11/29/22 cyclobenzaprine 7.5 mg tablet 7.5 mg PO TID PRN muscle spasm #30 12/03/22 tabs hydrocodone 5 mg-acetaminophen 325 1 tab PO BID PRN pain #14 tabs 01/16/23 mg tablet hydroxyzine HCl 50 mg tablet 50 mg PO Q6H PRN anxiety #20 tabs 01/18/24 amoxicillin 875 mg-potassium 1 tab PO BID #14 tabs 02/07/24 clavulanate 125 mg tablet acetaminophen 325 mg tablet 650 mg (2 x 325 mg) PO TID PRN 02/11/24 pain #30 tabs ibuprofen 600 mg tablet 600 mg PO Q8H PRN pain #30 tabs 02/11/24 ibuprofen 600 mg tablet 600 mg PO Q8H PRN pain #14 tabs 02/15/24 lidocaine 5 % topical patch 2 patch topical QDAY PRN pain #30 02/15/24 (Lidoderm) ea acetaminophen 500 mg tablet 500 mg PO Q6H PRN pain #30 tabs 09/15/24 tizanidine 4 mg tablet 4 mg PO BID PRN muscle spasticity 09/15/24 #20 tabs sumatriptan succinate 25 mg tablet 25 mg PO Q2H PRN migraine headache 10/08/24 (Imitrex) #10 tabs albuterol sulfate 90 mcg/actuation 1 inh inhalation Q4H PRN shortness 11/06/24 aerosol inhaler (Ventolin HFA) of breath or wheezing #8.5 grams hydroxyzine pamoate 25 mg capsule 25 mg PO BID PRN anxiety #10 caps 11/06/24 ibuprofen 800 mg tablet 800 mg PO Q8H PRN pain #20 tabs 12/21/24 ondansetron 4 mg disintegrating 4 mg PO Q8H PRN nausea and 12/21/24 tablet vomiting #20 tabs dicyclomine 20 mg tablet 20 mg PO QID PRN abdominal pain 12/27/24 #30 tabs cephalexin 500 mg capsule 500 mg PO QID #40 caps 12/28/24 albuterol sulfate 90 mcg/actuation 2 puff inhalation Q6H PRN 01/03/25 aerosol inhaler (Ventolin HFA) shortness of breath or wheezing #8.5 grams ondansetron 4 mg disintegrating 4 mg PO Q8H PRN nausea and 01/03/25 tablet vomiting #20 tabs amoxicillin 875 mg-potassium 1 tab PO BID #20 tabs 01/16/25 clavulanate 125 mg tablet ibuprofen 200 mg-phenylephrine HCl 1 tab PO Q4H PRN sinus symptoms 01/16/25 10 mg tablet (Sudafed PE Head #20 tabs Congestion-Pain) lidocaine HCl 2 % mucosal solution 10 ml PO Q4H PRN sore throat #100 01/16/25 (Lidocaine Viscous) mL ondansetron 4 mg disintegrating 4 mg PO Q8H PRN nausea and 01/16/25 tablet vomiting #10 tabs cephalexin 500 mg capsule 500 mg PO QID #28 caps 01/18/25 triamcinolone acetonide 0.025 % 1 applic topical BID #15 grams 01/18/25 topical ointment dicyclomine 20 mg tablet 20 mg PO BID #6 tabs 01/30/25 diphenhydramine HCl 2 % topical 1 applic topical BID PRN skin 02/11/25 gel (Benadryl) irritation #103 mL cyclobenzaprine 10 mg tablet 10 mg PO TID PRN muscle spasm 10 03/10/25 days #10 tabs ibuprofen 600 mg tablet 600 mg PO Q6H #30 tabs 03/10/25 famotidine 20 mg tablet (Pepcid) 20 mg PO BID 30 days #60 tabs 03/13/25 omeprazole 20 mg capsule,delayed 20 mg PO BID #30 caps 03/13/25 release ondansetron 4 mg disintegrating 4 mg PO Q8H #20 tabs 03/13/25 tablet Allergies Allergy/AdvReac Type Severity Reaction Status Date / Time No Known Allergies Allergy Verified 03/12/25 23:07 Review of Systems Review of Systems Systems Reviewed: All systems reviewed, normal except as documented Constitutional Constitutional: Reports system reviewed and no additional complaints, except as documented and Reports as per HPI Cardiovascular Cardiovascular: Reports system reviewed and no additional complaints, except as documented and Reports as per HPI Respiratory Respiratory: Reports system reviewed and no additional complaints, except as documented and Reports as per HPI Gastrointestinal Gastrointestinal: Reports system reviewed and no additional complaints, except as documented and Reports as per HPI Musculoskeletal Musculoskeletal: Reports system reviewed and no additional complaints, except as documented and Reports as per HPI Neurologic Neurologic: Reports system reviewed and no additional complaints, except as documented and Reports as per HPI Past Medical History Past Medical History NEUROLOGIC: Negative Neurological Disorders or Seizures CARDIAC: Negative Cardiac Disorders or Congestive Heart Failure RESPIRATORY: Negative Chronic Obstructive Pulmonary Disease (COPD) or Asthma GASTROINTESTINAL: Negative Gastrointestinal Disorders GENITOURINARY: Negative Genitourinary Disorders or Renal Disease MUSCULOSKELETAL: Negative Musculoskeletal Disorders ENDOCRINE: Negative Endocrine Disorders, Diabetes Mellitus Type 1 or Diabetes Mellitus Type 2 HEMATOLOGIC: Negative Blood Disorders or Sickle Cell Disease PSYCHO/SOCIAL: Positive Recreational Drug Use OTHER HISTORY: Positive Chicken Pox; Negative Hospitalization, Blood Transfusions, Blood Transfusion Reaction, Anesthesia Reactions or Cancer Social History SMOKING STATUS: Never smoker SUBSTANCE USE: methamphetamine ED Exam General Limitations: Present no limitations General appearance: Present alert, in no apparent distress and other (Patient is awake alert oriented not in distress nontoxic looking well-hydrated well-nourished) Head Head exam: Present atraumatic, normocephalic and normal inspection Eye Eye exam: Present normal appearance, PERRL and EOMI ENT ENT exam: Present normal exam, normal oropharynx and mucous membranes moist Neck Neck exam: Present normal inspection, full ROM and trachea midline; Absent tenderness, meningismus, lymphadenopathy or thyromegaly Chest Chest inspection: Present normal inspection and symmetric chest wall rise; Absent tenderness Respiratory Respiratory exam: Present normal lung sounds bilaterally; Absent respiratory distress, wheezes, stridor, accessory muscle use or prolonged expiratory phase Cardiovascular Cardiovascular exam: Present regular rate, normal rhythm and normal heart sounds; Absent bradycardia, tachycardia, irregular rhythm, systolic murmur or diastolic murmur Abdominal Exam Abdominal exam: Present soft and normal bowel sounds; Absent distention, tenderness, guarding, rebound, rigidity, diminished bowel sounds, hyperactive bowel sounds, hypoactive bowel sounds, organomegaly, trauma, psoas sign, obturator sign, Warner's sign, Rovsing's sign, tenderness at McBurney's Point, bruit or hernia Extremities Exam Extremities exam: Present normal inspection and full ROM Back Exam Back exam: Present normal inspection and full ROM Neurological Exam Neurological exam: Present alert, oriented X3, CN II-XII intact, normal gait and reflexes normal; Absent motor sensory deficit Psychiatric Psychiatric exam: Present normal affect and normal mood Skin Skin exam: Present warm, dry, intact, normal color and other (Excellent skin turgor) Course Quality Measures none Orders Category Date Time Status EKG (ED ONLY) *Do not use* NOW Care 03/12/25 23:44 Completed EKG (ED Only) Stat Exams 03/12/25 23:44 Draft CBC Stat Lab 03/12/25 23:43 Completed Comprehensive Metabolic Panel Stat Lab 03/12/25 23:43 Completed Lipase Stat Lab 03/12/25 23:43 Completed Troponin I Stat Lab 03/12/25 23:43 Completed Urinalysis Stat Lab 03/13/25 00:19 Completed Famotidine [Pepcid] Med 03/13/25 03:51 Once 40 mg PO X1 ONE Lidocaine 2% Viscous [Xylocaine 2% Viscous] Med 03/13/25 03:51 Once 15 ml PO X1 ONE Ondansetron Odt [Zofran Odt] Med 03/13/25 03:51 Once 4 mg PO X1 ONE cloNIDine HCL [Catapres] Med 03/13/25 03:51 Once 0.1 mg PO X1 ONE mg Hyd/Al Hyd/Maribell Susp [Maalox Susp] Med 03/13/25 03:51 Once 30 ml PO X1 ONE Vital Signs Vital signs: Vital Signs Temperature 98.0 F 03/12/25 23:20 Pulse Rate 90 03/12/25 23:20 Respiratory Rate 18 03/12/25 23:20 Blood Pressure 178/125 H 03/12/25 23:20 Pulse Oximetry (%) 99 03/12/25 23:20 Oxygen Delivery Method Room Air 03/12/25 23:20 Oxygen saturation is 99% on room air BP is 178/125 clonidine was given BP went down to 160/100 Abdominal Pain MDM MDM Narrative MDM Narrative:: This is a case of 39-year-old male who have history of polysubstance abuse and anxiety came in in the emergency room due to epigastric abdominal pain with nausea vomiting for 1 day patient had multiple visit here in the emergency room last visit was March 10, 2025 physical examination patient is awake alert oriented not in distress nontoxic looking well-hydrated well-nourished lungs sound is clear no crackles no rales no retraction no wheezing noted heart normal rate regular rhythm no murmur no edema abdominal exam is benign nonsurgical no guarding no rebound no rigidity no tenderness negative psoas negative straight or negative Rovsing's negative Marielena's negative sign negative CVA tenderness the rest of the neurological exam is normal and unremarkable blood test showed no leukocytosis no anemia kidney and liver function is normal no electrolyte imbalance lipase is normal urinalysis is normal EKG is normal sinus rhythm troponin is negative at this point patient abdominal exam or pain is due to gastritis patient will follow-up with PCP in 2 days for reevaluation and to be referred to GI specialist for possible EGD modified diet is advised patient blood pressure noted to be 178/125 after given GI cocktail and clonidine patient condition markedly improved BP went down to 160/100 patient has no chest pain no shortness of breath no palpitation patient was advised to follow-up with the primary care physician to monitor blood pressure and to review medication for hypertension and is to be referred to GI specialist for further evaluation and treatment and for any worsening symptoms or any emergent concern return precaution in the ER as advised Patient was discharged with comfortable condition walking with stable gait. Patient verbalized no further complains explained diagnosis and answered patient question. Patient is comfortable with the proposed management plan including the need to follow up with his/her primary care physician and any specialist if applicable Discussed patient for any urgent condition or worsening sx, He/She needed to go to emergency room immediately or call 911. Patient acknowledge the responsibility to follow up as instructed and to monitor her/his symptoms. For any persistence of the symptoms for more than 3-5 days return precaution advised. Discussed the result of the test and was given printed discharge instruction Patient data External records reviewed:: [facility] previous records Clinical information provided by:: patient Social determinants that could affect healthcare access:: none Patient has the following chronic illnesses:: None How is presenting disease/condition affected by chronic disease/condition?: no chronic disease Evaluation data The following diagnostics were reviewed and interpreted by me:: lab results, radiology exam(s) and EKG tracing(s) Lab and/or radiology exams considered but not ordered:: Reviewed Interpretation Summary: Reviewed Medications / Prescriptions Medications or Prescriptions considered but not ordered:: Given Medication administrations:: Medication Administration History Al Hydrox/Mg Hydrox/Simethicone (Mg Hyd/Al Hyd/Maribell (Maalox Reg) Susp 30 Ml Udc) 30 ml PO X1 ONE Stop: 03/13/25 03:52 Clonidine (Clonidine Hcl 0.1 Mg Tablet) 0.1 mg PO X1 ONE Stop: 03/13/25 03:52 Famotidine (Famotidine 20 Mg Tablet) 40 mg PO X1 ONE Stop: 03/13/25 03:52 Lidocaine HCl (Lidocaine Viscous 2% 15 Ml Udc) 15 ml PO X1 ONE Stop: 03/13/25 03:52 Ondansetron HCl (Ondansetron Odt 4 Mg Tabrap) 4 mg PO X1 ONE; Protocol Stop: 03/13/25 03:52 Given Consultations Consultation(s) initiated? (list below): No Diagnosis Differential diagnosis abdominal pain: abdominal pain and other (Gastritis) Most likely diagnosis given after review of the tests above:: Gastritis Admission Indicated Admission indicated?: not indicated Explain why admission is indicated or not indicated:: Not indicated Admission Request Was there a request for admission?: No Admission Attestation Admission request attestation: Not indicated Disposition Plan Disposition Plan: Discharge Discharge Attestation Discharge Attestation: The patient and all family members were given an opportunity to ask questions and understood the discharge instructions. Discharge instructions specifically effects, indications for sooner follow up or return to the emergency department, and the expected course of current diagnosis. Patient condition: Stable Discharge Plan Plan Patient Disposition: HOME (Self Care) Patient condition on transfer: Stable Prescriptions/Referrals Prescriptions/Med Rec: New omeprazole 20 mg capsule,delayed release(DR/EC) 20 mg PO BID Qty: 30 0RF famotidine [Pepcid] 20 mg tablet 20 mg PO BID 30 Days Qty: 60 0RF ondansetron 4 mg tablet,disintegrating 4 mg PO Q8H Qty: 20 0RF No Action cetirizine-pseudoephedrine [Zyrtec-D] 5-120 mg tablet extended release 12 hr 1 tab PO BID PRN (Reason: sinus symptoms) Qty: 14 0RF diphenhydramine HCl [Benadryl] 25 mg capsule 25 mg PO Q8H PRN (Reason: allergic symptoms) Qty: 30 0RF ibuprofen 600 mg tablet 600 mg PO QID PRN (Reason: pain) Qty: 20 0RF ciprofloxacin HCl [Cipro] 500 mg tablet 500 mg PO BID Qty: 14 0RF metronidazole 500 mg tablet 500 mg PO BID Qty: 14 0RF dicyclomine 20 mg tablet 20 mg PO BID Qty: 20 0RF hydroxyzine HCl 50 mg tablet 50 mg PO Q6H PRN (Reason: anxiety) Qty: 20 0RF amoxicillin-pot clavulanate 875-125 mg tablet 1 tab PO BID Qty: 14 0RF ibuprofen 600 mg tablet 600 mg PO Q8H PRN (Reason: pain) Qty: 30 0RF acetaminophen 325 mg tablet 650 mg PO TID PRN (Reason: pain) Qty: 30 0RF lidocaine [Lidoderm] 5 % adhesive patch,medicated 2 patch topical QDAY PRN (Reason: pain) Qty: 30 0RF Rx Instructions: leave on most painful area for up to 12 hrs ibuprofen 600 mg tablet 600 mg PO Q8H PRN (Reason: pain) Qty: 14 0RF tizanidine 4 mg tablet 4 mg PO BID PRN (Reason: muscle spasticity) Qty: 20 0RF acetaminophen 500 mg tablet 500 mg PO Q6H PRN (Reason: pain) Qty: 30 0RF hydroxyzine pamoate 25 mg capsule 25 mg PO BID PRN (Reason: anxiety) Qty: 10 0RF albuterol sulfate [Ventolin HFA] 90 mcg/actuation HFA aerosol inhaler 1 inh inhalation Q4H PRN (Reason: shortness of breath or wheezing) Qty: 8.5 0RF amoxicillin-pot clavulanate 875-125 mg tablet 1 tab PO BID Qty: 20 0RF lidocaine HCl [Lidocaine Viscous] 2 % solution 10 ml PO Q4H PRN (Reason: sore throat) Qty: 100 0RF ondansetron 4 mg tablet,disintegrating 4 mg PO Q8H PRN (Reason: nausea and vomiting) Qty: 10 0RF Sudafed PE Head Congestn-Pain 200-10 mg tablet 1 tab PO Q4H PRN (Reason: sinus symptoms) Qty: 20 0RF Benadryl 2 % gel 1 applic topical BID PRN (Reason: skin irritation) Qty: 103 0RF cyclobenzaprine 10 mg tablet 10 mg PO TID PRN (Reason: muscle spasm) 10 Days Qty: 10 0RF ibuprofen 600 mg tablet 600 mg PO Q6H Qty: 30 0RF cyclobenzaprine 7.5 mg tablet 7.5 mg PO TID PRN (Reason: muscle spasm) Qty: 30 0RF hydrocodone-acetaminophen 5-325 mg tablet 1 tab PO BID MDD 10 PRN (Reason: pain) Qty: 14 0RF sumatriptan succinate [Imitrex] 25 mg tablet 25 mg PO Q2H PRN (Reason: migraine headache) Qty: 10 0RF Rx Instructions: do not exceed 8 doses per 24 hrs ondansetron 4 mg tablet,disintegrating 4 mg PO Q8H PRN (Reason: nausea and vomiting) Qty: 20 0RF ibuprofen 800 mg tablet 800 mg PO Q8H PRN (Reason: pain) Qty: 20 0RF dicyclomine 20 mg tablet 20 mg PO QID PRN (Reason: abdominal pain) Qty: 30 0RF cephalexin 500 mg capsule 500 mg PO QID Qty: 40 0RF ondansetron 4 mg tablet,disintegrating 4 mg PO Q8H PRN (Reason: nausea and vomiting) Qty: 20 0RF albuterol sulfate [Ventolin HFA] 90 mcg/actuation HFA aerosol inhaler 2 puff inhalation Q6H PRN (Reason: shortness of breath or wheezing) Qty: 8.5 0RF triamcinolone acetonide 0.025 % ointment 1 applic topical BID Qty: 15 0RF cephalexin 500 mg capsule 500 mg PO QID Qty: 28 0RF dicyclomine 20 mg tablet 20 mg PO BID Qty: 6 0RF Referrals: Michael Rudolph MD [Primary Care Provider, Family Practice] - In 1 week Problem List Clinical Impression: Abdominal pain, Gastritis, Hypertension, uncontrolled Patient/Caregiver Discharge Instructions Education Materials: Abdominal Pain, ED Gastritis (Adult), ED High Blood Pressure ... Additional Instructions: Follow-up with your primary care physician in 2 days for reevaluation and to be referred to pharmacy billing adjudicator for further evaluation and treatment of gastritis continue to monitor your blood pressure and follow-up with your primary care physician to monitor your and to review your medication for hypertension check your BP twice a day and return to the emergency room for BP is greater than 160/100 or become symptomatic recurrence persistent worsening symptoms or any emergent concern return precaution in the ER is advised avoid skipping meals avoid fatty fried high cholesterol food avoid spicy food avoid alcohol soda or coffee keep hydrated Print Language: Faroese Stand Alone Forms: Selin Award Info., Patient Portal Info Letter PA/ASPHALT LAYER Supervising Physician PA/CESAR Supervising Physician: Dr. Francisco Angel
[2025-03-13 05:48] VITALS: BP 168/118; PULSE 87; RESP 20; TEMP 37.1; O2SAT 100
[2025-03-13 05:50] VITALS: BP 168/118; PULSE 87
[2025-03-13] MEDS: MG HYD/AL HYD/SIME (Maalox Reg) SUSP 30 ML UDC PO (05:50)
[2025-03-13] MEDS: FAMOTIDINE 20 MG TABLET 40 MG PO (05:50)
[2025-03-13] MEDS: LIDOCAINE VISCOUS 2% 15 ML UDC PO (05:50)
[2025-03-13] MEDS: ONDANSETRON ODT 4 MG TABRAP PO (05:50)
== END 2025-03-13 06:19 | disposition home or self-care (01) ==
PROVIDERS: Nurse Practitioner Family; Emergency Provider Emergency Medicine; PCP Family Medicine
DX: K29.70 Gastritis, unspecified, without bleeding (principal); F19.11 Other psychoactive substance abuse, in remission; I10 Essential (primary) hypertension
CPT/HCPCS: 36415; 80053; 81001; 83690; 84484; 85025; 93005; 99283; J3490; Q0162; A9270

== ENCOUNTER 2025-03-13 08:00 | Emergency (ER) | payer MEDICAID, SELFPAY ==
--- NOTE | 2025-03-13 08:26 | PC.NURSE ---
PER SECURITY PT ELOPED STATING I'M LEAVING, I'M JUST GOING TO GO [employer] MY PRESCRIPTIONS. PT NOT FOUND IN OR OUTSIDE OF ED. PT ELOPED.
== END 2025-03-13 08:28 | disposition left against medical advice (07) ==
LOC: SERX 08:31
PROVIDERS: Emergency Provider Emergency Medicine; PCP Internal Medicine Hematology
DX: Z53.21 Procedure and treatment not carried out due to patient leaving prior to being seen by health care provider (principal)
CPT/HCPCS: 99281

== ENCOUNTER 2025-03-13 16:22 | Emergency (ER) | payer MEDICAID, SELFPAY ==
[2025-03-13 16:22] VITALS: PULSE 88; RESP 18; O2SAT 99
[2025-03-13 16:44] VITALS: BP 162/110; PULSE 102; RESP 19; TEMP 37.1; O2SAT 97; BMI 21.9
--- NOTE | 2025-03-13 17:17 | XR_ITS ---
EXAMINATION: Abdominal series 3 views including upright PA chest TECHNIQUE: Upright PA chest, AP upright AP supine abdomen total 3 views Date and time: March 13, 2025, 1745 hours INDICATIONS: Generalized abdominal pain beginning 2 weeks ago. FINDINGS: Normal heart size Lungs are clear Moderate stool throughout the colon No obstruction No free air IMPRESSION: Moderate stool throughout the colon No obstruction No renal or ureteral calculi
--- NOTE | 2025-03-13 17:21 | PD.EDABDPN ---
ED Abdominal Pain RME/HPI General Chief Complaint: Abdominal Pain Stated complaint: ABD PAIN, RESENDIZ Time seen by provider: 03/13/25 17:19 Arrival date/time: 03/13/25 16:22 RME / HPI RME / HPI narrative: DR. WADE MAIN ED EVALUATION: 39-year-old male with a past medical history of polysubstance abuse and anxiety presents to the Emergency Department for recurrent abdominal pain. The patient was seen and discharged at 4 AM today for similar symptoms and was prescribed medications, but did not pick them up because he was too sick . He now returns stating his stomach is hurting a lot again. He denies vomiting and states he ate burritos and chips without issue earlier today. He reports diarrhea yesterday but denies blood or black discoloration in the stool. He also notes a frontal headache. No history of abdominal surgeries. No other symptoms reported. Related Data Previous Rx's ?Medication ?Instructions ?Recorded cetirizine 5 mg-pseudoephedrine ER 1 tab PO BID PRN sinus symptoms 08/30/21 120 mg tablet,extended #14 tabs release,12hr (Zyrtec-D) diphenhydramine HCl 25 mg capsule 25 mg PO Q8H PRN allergic symptoms 09/23/22 (Benadryl) #30 caps ibuprofen 600 mg tablet 600 mg PO QID PRN pain #20 tabs 09/23/22 ciprofloxacin HCl 500 mg tablet 500 mg PO BID #14 tabs 11/29/22 (Cipro) dicyclomine 20 mg tablet 20 mg PO BID #20 tabs 11/29/22 metronidazole 500 mg tablet 500 mg PO BID #14 tabs 11/29/22 cyclobenzaprine 7.5 mg tablet 7.5 mg PO TID PRN muscle spasm #30 12/03/22 tabs hydrocodone 5 mg-acetaminophen 325 1 tab PO BID PRN pain #14 tabs 01/16/23 mg tablet hydroxyzine HCl 50 mg tablet 50 mg PO Q6H PRN anxiety #20 tabs 01/18/24 amoxicillin 875 mg-potassium 1 tab PO BID #14 tabs 02/07/24 clavulanate 125 mg tablet acetaminophen 325 mg tablet 650 mg (2 x 325 mg) PO TID PRN 02/11/24 pain #30 tabs ibuprofen 600 mg tablet 600 mg PO Q8H PRN pain #30 tabs 02/11/24 ibuprofen 600 mg tablet 600 mg PO Q8H PRN pain #14 tabs 02/15/24 lidocaine 5 % topical patch 2 patch topical QDAY PRN pain #30 02/15/24 (Lidoderm) ea acetaminophen 500 mg tablet 500 mg PO Q6H PRN pain #30 tabs 09/15/24 tizanidine 4 mg tablet 4 mg PO BID PRN muscle spasticity 09/15/24 #20 tabs sumatriptan succinate 25 mg tablet 25 mg PO Q2H PRN migraine headache 10/08/24 (Imitrex) #10 tabs albuterol sulfate 90 mcg/actuation 1 inh inhalation Q4H PRN shortness 11/06/24 aerosol inhaler (Ventolin HFA) of breath or wheezing #8.5 grams hydroxyzine pamoate 25 mg capsule 25 mg PO BID PRN anxiety #10 caps 11/06/24 ibuprofen 800 mg tablet 800 mg PO Q8H PRN pain #20 tabs 12/21/24 ondansetron 4 mg disintegrating 4 mg PO Q8H PRN nausea and 12/21/24 tablet vomiting #20 tabs dicyclomine 20 mg tablet 20 mg PO QID PRN abdominal pain 12/27/24 #30 tabs cephalexin 500 mg capsule 500 mg PO QID #40 caps 12/28/24 albuterol sulfate 90 mcg/actuation 2 puff inhalation Q6H PRN 01/03/25 aerosol inhaler (Ventolin HFA) shortness of breath or wheezing #8.5 grams ondansetron 4 mg disintegrating 4 mg PO Q8H PRN nausea and 01/03/25 tablet vomiting #20 tabs amoxicillin 875 mg-potassium 1 tab PO BID #20 tabs 01/16/25 clavulanate 125 mg tablet ibuprofen 200 mg-phenylephrine HCl 1 tab PO Q4H PRN sinus symptoms 01/16/25 10 mg tablet (Sudafed PE Head #20 tabs Congestion-Pain) lidocaine HCl 2 % mucosal solution 10 ml PO Q4H PRN sore throat #100 01/16/25 (Lidocaine Viscous) mL ondansetron 4 mg disintegrating 4 mg PO Q8H PRN nausea and 01/16/25 tablet vomiting #10 tabs cephalexin 500 mg capsule 500 mg PO QID #28 caps 01/18/25 triamcinolone acetonide 0.025 % 1 applic topical BID #15 grams 01/18/25 topical ointment dicyclomine 20 mg tablet 20 mg PO BID #6 tabs 01/30/25 diphenhydramine HCl 2 % topical 1 applic topical BID PRN skin 02/11/25 gel (Benadryl) irritation #103 mL cyclobenzaprine 10 mg tablet 10 mg PO TID PRN muscle spasm 10 03/10/25 days #10 tabs ibuprofen 600 mg tablet 600 mg PO Q6H #30 tabs 03/10/25 dicyclomine 20 mg tablet 20 mg PO TID PRN abdominal pain 03/13/25 #20 tabs famotidine 20 mg tablet (Pepcid) 20 mg PO BID 30 days #60 tabs 03/13/25 omeprazole 20 mg capsule,delayed 20 mg PO BID #30 caps 03/13/25 release ondansetron 4 mg disintegrating 4 mg PO Q8H #20 tabs 03/13/25 tablet Allergies Allergy/AdvReac Type Severity Reaction Status Date / Time No Known Allergies Allergy Verified 03/15/25 07:38 Review of Systems Review of Systems Systems Reviewed: All systems reviewed, normal except as documented Past Medical History Past Medical History PSYCHO/SOCIAL: Positive Recreational Drug Use OTHER HISTORY: Positive Chicken Pox Social History SMOKING STATUS: Never smoker SUBSTANCE USE: methamphetamine ED Exam Narrative Physical exam: GENERAL APPEARANCE: Alert and oriented x4, appears mildly uncomfortable but in no acute distress VITALS: All vitals were reviewed and the pulse ox is 97% on room air, which is normal according to my interpretation. HEENT: Normocephalic, atraumatic; pupils equal, round, reactive to light; EOMI; mucous membranes pink, moist; oropharynx clear NECK: Supple LUNGS: CTABL; no wheezes, no rales, no rhonchi HEART: Regular rate, regular rhythm; normal S1, S2; no murmurs ABDOMEN: Soft, active bowel sounds, no guarding, no rebound; no masses, no organomegaly, no hernia BACK: no CVA tenderness EXTREMITIES: atraumatic; no edema NEUROLOGIC: awake; alert and oriented x4; cranial nerves II-XII grossly intact; no focal sensory or motor deficits PSYCHIATRIC: appropriate mood and affect SKIN: warm, dry, normal color; no rashes Course Quality Measures none Orders Category Date Time Status XR abdomen series w chest 1V Stat Exams 03/13/25 17:17 Completed Ketorolac Inj [Toradol Inj] Med 03/13/25 19:07 Discontinued 30 mg IM X1 ONE Magnesium Citrate Liqd [Citrate of Magnesia Liqd] Med 03/13/25 19:07 Discontinued 300 ml PO X1 ONE Vital Signs Vital signs: Vital Signs Temperature 98.7 F 03/13/25 16:44 Pulse Rate 102 H 03/13/25 16:44 Respiratory Rate 19 03/13/25 16:44 Blood Pressure 162/110 H 03/13/25 16:44 Pulse Oximetry (%) 97 03/13/25 16:44 Oxygen Delivery Method Room Air 03/13/25 16:44 Abdominal Pain MDM MDM Narrative MDM Narrative:: Faye Reza am scribing for and in the presence of Dr. Wade. Patient data External records reviewed:: [facility] previous records Clinical information provided by:: patient Social determinants that could affect healthcare access:: substance use Patient has the following chronic illnesses:: polysubstance abuse and anxiety How is presenting disease/condition affected by chronic disease/condition?: exacerbated by Evaluation data The following diagnostics were reviewed and interpreted by me:: radiology exam(s) Lab and/or radiology exams considered but not ordered:: none Interpretation Summary: Pending. Medications / Prescriptions Medications or Prescriptions considered but not ordered:: none Medication administrations:: Medication Administration History Discontinued Medications Ketorolac Tromethamine (Ketorolac Inj 30 Mg/Ml Vial) 30 mg IM X1 ONE Stop: 03/13/25 19:08 Last Admin: 03/13/25 19:16 Dose: 30 mg Documented By: BD Magnesium Citrate (Magnesium Citrate 300 Ml Btl) 300 ml PO X1 ONE Stop: 03/13/25 19:08 Last Admin: 03/13/25 19:16 Dose: 300 ml Documented By: BD see above if any Consultations Consultation(s) initiated? (list below): No Diagnosis Differential diagnosis abdominal pain: other (Gastritis, viral gastroenteritis, and functional abdominal pain related to anxiety.) Most likely diagnosis given after review of the tests above:: No official diagnoses at this time, still pending diagnostic tests. Patient signout to the shift supervisor rn provider. Admission Indicated Admission indicated?: not indicated Explain why admission is indicated or not indicated:: No final disposition plan at this time, still pending diagnostic tests. Patient signout to the shift supervisor rn provider. Admission Request Was there a request for admission?: No Disposition Plan Disposition Plan: other (specify) (Patient signed out to Dr. Bloom pending chest/abdomen XR and final disposition.) Discharge Plan Plan Patient Disposition: HOME (Self Care) Discharge Disposition comment: stable Prescriptions/Referrals Prescriptions/Med Rec: No Action cetirizine-pseudoephedrine [Zyrtec-D] 5-120 mg tablet extended release 12 hr 1 tab PO BID PRN (Reason: sinus symptoms) Qty: 14 0RF diphenhydramine HCl [Benadryl] 25 mg capsule 25 mg PO Q8H PRN (Reason: allergic symptoms) Qty: 30 0RF ibuprofen 600 mg tablet 600 mg PO QID PRN (Reason: pain) Qty: 20 0RF ciprofloxacin HCl [Cipro] 500 mg tablet 500 mg PO BID Qty: 14 0RF metronidazole 500 mg tablet 500 mg PO BID Qty: 14 0RF dicyclomine 20 mg tablet 20 mg PO BID Qty: 20 0RF hydroxyzine HCl 50 mg tablet 50 mg PO Q6H PRN (Reason: anxiety) Qty: 20 0RF amoxicillin-pot clavulanate 875-125 mg tablet 1 tab PO BID Qty: 14 0RF ibuprofen 600 mg tablet 600 mg PO Q8H PRN (Reason: pain) Qty: 30 0RF acetaminophen 325 mg tablet 650 mg PO TID PRN (Reason: pain) Qty: 30 0RF lidocaine [Lidoderm] 5 % adhesive patch,medicated 2 patch topical QDAY PRN (Reason: pain) Qty: 30 0RF Rx Instructions: leave on most painful area for up to 12 hrs ibuprofen 600 mg tablet 600 mg PO Q8H PRN (Reason: pain) Qty: 14 0RF tizanidine 4 mg tablet 4 mg PO BID PRN (Reason: muscle spasticity) Qty: 20 0RF acetaminophen 500 mg tablet 500 mg PO Q6H PRN (Reason: pain) Qty: 30 0RF hydroxyzine pamoate 25 mg capsule 25 mg PO BID PRN (Reason: anxiety) Qty: 10 0RF albuterol sulfate [Ventolin HFA] 90 mcg/actuation HFA aerosol inhaler 1 inh inhalation Q4H PRN (Reason: shortness of breath or wheezing) Qty: 8.5 0RF amoxicillin-pot clavulanate 875-125 mg tablet 1 tab PO BID Qty: 20 0RF lidocaine HCl [Lidocaine Viscous] 2 % solution 10 ml PO Q4H PRN (Reason: sore throat) Qty: 100 0RF ondansetron 4 mg tablet,disintegrating 4 mg PO Q8H PRN (Reason: nausea and vomiting) Qty: 10 0RF Sudafed PE Head Congestn-Pain 200-10 mg tablet 1 tab PO Q4H PRN (Reason: sinus symptoms) Qty: 20 0RF Benadryl 2 % gel 1 applic topical BID PRN (Reason: skin irritation) Qty: 103 0RF cyclobenzaprine 10 mg tablet 10 mg PO TID PRN (Reason: muscle spasm) 10 Days Qty: 10 0RF ibuprofen 600 mg tablet 600 mg PO Q6H Qty: 30 0RF omeprazole 20 mg capsule,delayed release(DR/EC) 20 mg PO BID Qty: 30 0RF famotidine [Pepcid] 20 mg tablet 20 mg PO BID 30 Days Qty: 60 0RF ondansetron 4 mg tablet,disintegrating 4 mg PO Q8H Qty: 20 0RF cyclobenzaprine 7.5 mg tablet 7.5 mg PO TID PRN (Reason: muscle spasm) Qty: 30 0RF hydrocodone-acetaminophen 5-325 mg tablet 1 tab PO BID MDD 10 PRN (Reason: pain) Qty: 14 0RF sumatriptan succinate [Imitrex] 25 mg tablet 25 mg PO Q2H PRN (Reason: migraine headache) Qty: 10 0RF Rx Instructions: do not exceed 8 doses per 24 hrs ondansetron 4 mg tablet,disintegrating 4 mg PO Q8H PRN (Reason: nausea and vomiting) Qty: 20 0RF ibuprofen 800 mg tablet 800 mg PO Q8H PRN (Reason: pain) Qty: 20 0RF dicyclomine 20 mg tablet 20 mg PO QID PRN (Reason: abdominal pain) Qty: 30 0RF cephalexin 500 mg capsule 500 mg PO QID Qty: 40 0RF ondansetron 4 mg tablet,disintegrating 4 mg PO Q8H PRN (Reason: nausea and vomiting) Qty: 20 0RF albuterol sulfate [Ventolin HFA] 90 mcg/actuation HFA aerosol inhaler 2 puff inhalation Q6H PRN (Reason: shortness of breath or wheezing) Qty: 8.5 0RF triamcinolone acetonide 0.025 % ointment 1 applic topical BID Qty: 15 0RF cephalexin 500 mg capsule 500 mg PO QID Qty: 28 0RF dicyclomine 20 mg tablet 20 mg PO BID Qty: 6 0RF dicyclomine 20 mg tablet 20 mg PO TID PRN (Reason: abdominal pain) Qty: 20 0RF Referrals: Michael Rudolph MD [Primary Care Provider, Family Practice] - In 1 week Problem List Clinical Impression: Constipation Impression comment: Constipation Patient/Caregiver Discharge Instructions Discharge Activity: activity as tolerated Diet Instructions: Clear liquid diet x 24 hours Education Materials: ED Constipation (Adult) Additional Instructions: Clear liquid diet x 24 hours at advance as tolerated. Medication as directed. Return for fever persistent vomiting or general worsening illness. Print Language: Vietnamese Stand Alone Forms: [employer] Award Info., Patient Portal Info Letter
--- NOTE | 2025-03-13 18:11 | PD.EDADDENDU ---
Emergency Room Addendum Addendum Narrative: 1800: Care assumed from Dr. Wade, the previous shift emergency physician. Past medical, surgical, social and family history reviewed. Vitals and home medications reviewed. Results and treatment plan discussed. I will assume the care of the patient at this time and will follow the patient. Please refer to the emergency department record for history and examination from initial visit. 39yo male with a history of schizoeffective disorder, was seen earlier and eloped for unknown reasons now representing with multiple complaints, predominantly abdominal pain with associated distention. No fever, chills, V/D. Patient is notably hypertensive and mild tachycardic, but is nontoxic. Abdominal exam shows mild diffuse tenderness and 1+ abdominal distention without peritoneal findings. Labs from earlier today demonstrated normal WBC count, renal function, and unremarkable UA. Routine x-rays do demonstrate moderate stool burden at the right colon and rectosigmoid region. Will treat with NSAID and stimulant laxative, and discharge home on clear liquid diet for 24 hours and precaution instructions. Dx: constipation RADIOLOGY RESULTS: [place] [facility] Report Signed Patient: DAIANA MEDINA. Record#: [id number] Birthdate: 1985 Age/Sex: 39 / M Location: [facility] Attending Dr: Ordering Physician: Meggan Wade MD Date of Service: 03/13/25 Procedure(s): XR abdomen series w chest 1V Accession Number(s): [id number] cc: Michael Rudolph MD; Shad Brut MD; Meggan Wade MD~ EXAMINATION: Abdominal series 3 views including upright PA chest TECHNIQUE: Upright PA chest, AP upright AP supine abdomen total 3 views Date and time: March 13, 2025, 1745 hours INDICATIONS: Generalized abdominal pain beginning 2 weeks ago. FINDINGS: Normal heart size Lungs are clear Moderate stool throughout the colon No obstruction No free air IMPRESSION: Moderate stool throughout the colon No obstruction No renal or ureteral calculi Dictated By: Shad Burt MD Signed By: <Electronically signed by Shad Burt MD in OV> 03/13/25 [id number]
[2025-03-13] MEDS: KETOROLAC INJ 30 MG/ML VIAL IM (19:16)
[2025-03-13] MEDS: MAGNESIUM CITRATE 300 ML BTL PO (19:16)
== END 2025-03-13 19:19 | disposition home or self-care (01) ==
PROVIDERS: Emergency Provider Emergency Medicine; PCP Family Medicine
DX: K59.00 Constipation, unspecified (principal)
CPT/HCPCS: 74022; 96372; 99283; J1885; A9270

== ENCOUNTER 2025-03-13 20:23 | Emergency (ER) | payer MEDICAID, SELFPAY ==
[2025-03-13 20:41] VITALS: PULSE 86; O2SAT 99; BMI 20.8
[2025-03-13 21:29] VITALS: BP 162/98; PULSE 98; RESP 20; TEMP 36.7; O2SAT 100
[2025-03-13] MEDS: DICYCLOMINE INJ 10 MG/ML 2ML VIAL IM (21:43)
--- NOTE | 2025-06-11 07:51 | EDNOTE_ITS ---
ED Abdominal Pain RME/HPI General Chief Complaint: Abdominal Pain Stated complaint: ABD PAIN Time seen by provider: 03/13/25 21:32 Arrival date/time: 03/13/25 20:23 This is a case of 39-year-old male with anxiety with multiple visits in the ER came in in the emergency room due to lower abdominal pain for 1 day no other associated symptoms no chest pain no diarrhea no constipation no blood in stool Limitations: no limitations Related Data Previous Rx's ?Medication ?Instructions ?Recorded cetirizine 5 mg-pseudoephedrine ER 1 tab PO BID PRN si nus symptoms 08/30/21 120 mg tablet,extended #14 tabs release,12hr (Zyrtec-D) diphenhydramine HCl 25 mg capsule 25 mg PO Q8H PRN all ergic symptoms 09/23/22 (Benadryl) #30 caps ibuprofen 600 mg tablet 600 mg PO QID PRN pain #20 t abs 09/23/22 ciprofloxacin HCl 500 mg tablet 500 mg PO BID #14 tabs 11/29/22 (Cipro) dicyclomine 20 mg tablet 20 mg PO BID #20 tabs metronidazole 500 mg tablet 500 mg PO BID #14 tabs cyclobenzaprine 7.5 mg tablet 7.5 mg PO TID PRN muscle spasm #30 12/03/22 tabs hydrocodone 5 mg-acetaminophen 325 1 tab PO BID PRN pa in #14 tabs 01/16/23 mg tablet hydroxyzine HCl 50 mg tablet 50 mg PO Q6H PRN anxiety #20 tabs 01/18/24 amoxicillin 875 mg-potassium 1 tab PO BID #14 tabs 09/25 clavulanate 125 mg tablet acetaminophen 325 mg tablet 650 mg (2 x 325 mg) PO TID PRN 02/11/24 pain #30 tabs ibuprofen 600 mg tablet 600 mg PO Q8H PRN pain #30 t abs 02/11/24 ibuprofen 600 mg tablet 600 mg PO Q8H PRN pain #14 t abs 02/15/24 lidocaine 5 % topical patch 2 patch topical QDAY PRN p ain #30 02/15/24 (Lidoderm) ea acetaminophen 500 mg tablet 500 mg PO Q6H PRN pain #30 tabs 09/15/24 tizanidine 4 mg tablet 4 mg PO BID PRN muscle spast icity 09/15/24 #20 tabs sumatriptan succinate 25 mg tablet 25 mg PO Q2H PRN mi graine headache 10/08/24 (Imitrex) #10 tabs albuterol sulfate 90 mcg/actuation 1 inh inhalation Q4 H PRN shortness 11/06/24 aerosol inhaler (Ventolin HFA) of breath or wheezing # 8.5 grams hydroxyzine pamoate 25 mg capsule 25 mg PO BID PRN anx iety #10 caps 11/06/24 ibuprofen 800 mg tablet 800 mg PO Q8H PRN pain #20 t abs 12/21/24 ondansetron 4 mg disintegrating 4 mg PO Q8H PRN nausea and 12/21/24 tablet vomiting #20 tabs dicyclomine 20 mg tablet 20 mg PO QID PRN abdominal p ain 12/27/24 #30 tabs cephalexin 500 mg capsule 500 mg PO QID #40 caps 12/28 albuterol sulfate 90 mcg/actuation 2 puff inhalation Q 6H PRN 01/03/25 aerosol inhaler (Ventolin HFA) shortness of breath or wheezing #8.5 grams ondansetron 4 mg disintegrating 4 mg PO Q8H PRN nausea and 01/03/25 tablet vomiting #20 tabs amoxicillin 875 mg-potassium 1 tab PO BID #20 tabs clavulanate 125 mg tablet ibuprofen 200 mg-phenylephrine HCl 1 tab PO Q4H PRN si nus symptoms 01/16/25 10 mg tablet (Sudafed PE Head #20 tabs Congestion-Pain) lidocaine HCl 2 % mucosal solution 10 ml PO Q4H PRN so re throat #100 01/16/25 (Lidocaine Viscous) mL ondansetron 4 mg disintegrating 4 mg PO Q8H PRN nausea and 01/16/25 tablet vomiting #10 tabs cephalexin 500 mg capsule 500 mg PO QID #28 caps 01/18 triamcinolone acetonide 0.025 % 1 applic topical BID # 15 grams 01/18/25 topical ointment dicyclomine 20 mg tablet 20 mg PO BID #6 tabs 01/30/ 5 diphenhydramine HCl 2 % topical 1 applic topical BID P RN skin 10/10/25 gel (Benadryl) irritation #103 mL ibuprofen 600 mg tablet 600 mg PO Q6H #30 tabs 03/10 dicyclomine 20 mg tablet 20 mg PO TID PRN abdominal p ain 03/13/25 #20 tabs omeprazole 20 mg capsule,delayed 20 mg PO BID #30 caps 03/13/25 release ondansetron 4 mg disintegrating 4 mg PO Q8H #20 tabs 1 05/13/24 tablet albuterol sulfate 90 mcg/actuation 2 puff inhalation Q 6H PRN 03/27/25 aerosol inhaler (Ventolin HFA) shortness of breath or wheezing #8.5 grams albuterol sulfate 90 mcg/actuation 2 puff inhalation Q 6H PRN 04/27/25 aerosol inhaler shortness of breath or wheez ing #8.5 grams cephalexin 500 mg capsule 500 mg PO QID #40 caps 04/27 ondansetron 4 mg disintegrating 4 mg PO Q8H #20 tabs 1 06/28/24 tablet hyoscyamine sulfate 0.125 mg 0.125 mg PO TID PRN cram ping #10 04/30/25 tablet (Levsin) tabs dicyclomine 20 mg tablet 20 mg PO TID PRN abdominal p ain 05/01/25 #20 tabs Allergies Allergy/AdvReac Type Severity Reaction Status Date / Time No Known Allergies Allergy Verified 04/30/25 23:30 Review of Systems Review of Systems Systems Reviewed: All systems reviewed, normal except as documented Past Medical History Past Medical History NEUROLOGIC: Negative Neurological Disorders or Seizures CARDIAC: Negative Cardiac Disorders or Congestive Heart Failure RESPIRATORY: Negative Chronic Obstructive Pulmonary Disease (COPD) or Asthma GASTROINTESTINAL: Negative Gastrointestinal Disorders GENITOURINARY: Negative Genitourinary Disorders or Renal Disease MUSCULOSKELETAL: Negative Musculoskeletal Disorders ENDOCRINE: Negative Endocrine Disorders, Diabetes Mellitus Type 1 or Diabetes Mellitus Type 2 HEMATOLOGIC: Negative Blood Disorders or Sickle Cell Disease PSYCHO/SOCIAL: Positive Recreational Drug Use OTHER HISTORY: Positive Chicken Pox; Negative Hospitalization, Blood Transfusions, Blood Transfusion Reaction, Anesthesia Reactions or Cancer Social History SMOKING STATUS: Never smoker SUBSTANCE USE: methamphetamine ED Exam General Limitations: Present no limitations General appearance: Present alert and in no apparent distress Head Head exam: Present atraumatic Eye Eye exam: Present normal appearance, PERRL and EOMI ENT ENT exam: Present normal exam, normal oropharynx and mucous membranes moist Neck Neck exam: Present normal inspection, full ROM and trachea midline Chest Chest inspection: Present normal inspection and symmetric chest wall rise Respiratory Respiratory exam: Present normal lung sounds bilaterally Cardiovascular Cardiovascular exam: Present regular rate, normal rhythm and normal heart sounds Abdominal Exam Abdominal exam: Present soft and normal bowel sounds; Absent distention, tenderness, guarding, rebound, rigidity, diminished bowel sounds, hyperactive bowel sounds, hypoactive bowel sounds, organomegaly, psoas sign, obturator sign, Warner's sign, Rovsing's sign, tenderness at McBurney's Point or hernia Extremities Exam Extremities exam: Present normal inspection and full ROM Back Exam Back exam: Present normal inspection and full ROM; Absent CVA tenderness (R) or CVA tenderness (L) Neurological Exam Neurological exam: Present alert, oriented X3 and CN II-XII intact Psychiatric Psychiatric exam: Present normal affect and normal mood Skin Skin exam: Present warm, dry, intact and normal color Course Quality Measures none Orders Category Date Time Status Dicyclomine Inj [Bentyl Inj] Med 03/13/25 21:35 Discontinued 10 mg IM X1 ONE Vital Signs Vital signs: Vital Signs Temperature 98.0 F 03/13/25 21:29 Pulse Rate 98 03/13/25 21:29 Respiratory Rate 20 03/13/25 21:29 Blood Pressure 162/98 H 03/13/25 21:29 Pulse Oximetry (%) 100 03/13/25 21:29 Oxygen Delivery Method Room Air 03/13/25 21:29 VS STABLE Abdominal Pain MDM MDM Narrative MDM Narrative:: Patient was discharged with comfortable condition walking with stable gait. Patient verbalized no further complains explained diagnosis and answered patient question. Patient is comfortable with the proposed management plan including the need to follow up with his/her primary care physician and any specialist if applicable Discussed patient for any urgent condition or worsening sx, He/She needed to go to emergency room immediately or call 911. Patient acknowledge the responsibility to follow up as instructed and to monitor her/his symptoms. For any persistence of the symptoms for more than 3-5 days return precaution advised. Discussed the result of the test and was given printed discharge instruction Patient data External records reviewed:: [facility] previous records Clinical information provided by:: patient Social determinants that could affect healthcare access:: none Patient has the following chronic illnesses:: NONE How is presenting disease/condition affected by chronic disease/condition?: no chronic disease Evaluation data The following diagnostics were reviewed and interpreted by me:: lab results and radiology exam(s) Lab and/or radiology exams considered but not ordered:: REVIEWD Interpretation Summary: REVIEWED Medications / Prescriptions Medications or Prescriptions considered but not ordered:: GIVEN Medication administrations:: Medication Administration History Discontinued Medications Dicyclomine HCl (Dicyclomine Inj 10 Mg/Ml 2ml Vial) 10 mg IM X1 ONE Stop: 03/13/25 21:36 Last Admin: 03/13/25 21:43 Dose: 10 mg Documented By: BD GIVEN Consultations Consultation(s) initiated? (list below): No Diagnosis Differential diagnosis abdominal pain: abdominal pain Most likely diagnosis given after review of the tests above:: ABDOMINAL PAIN Admission Indicated Admission indicated?: not indicated Admission Request Was there a request for admission?: No Admission Attestation Admission request attestation: NO INDICATED Disposition Plan Disposition Plan: Discharge Discharge Attestation Discharge Attestation: The patient and all family members were given an opportunity to ask questions and understood the discharge instructions. Discharge instructions specifically effects, indications for sooner follow up or return to the emergency department, and the expected course of current diagnosis. Patient condition: Stable Discharge Plan Plan Patient Disposition: HOME (Self Care) Patient condition on transfer: Stable Prescriptions/Referrals Prescriptions/Med Rec: New dicyclomine 20 mg tablet 20 mg PO TID PRN (Reason: abdominal pain) Qty: 20 0RF No Action cetirizine-pseudoephedrine [Zyrtec-D] 5-120 mg tablet extended release 12 hr 1 tab PO BID PRN (Reason: sinus symptoms) Qty: 14 0RF diphenhydramine HCl [Benadryl] 25 mg capsule 25 mg PO Q8H PRN (Reason: allergic symptoms) Qty: 30 0RF ibuprofen 600 mg tablet 600 mg PO QID PRN (Reason: pain) Qty: 20 0RF ciprofloxacin HCl [Cipro] 500 mg tablet 500 mg PO BID Qty: 14 0RF metronidazole 500 mg tablet 500 mg PO BID Qty: 14 0RF dicyclomine 20 mg tablet 20 mg PO BID Qty: 20 0RF hydroxyzine HCl 50 mg tablet 50 mg PO Q6H PRN (Reason: anxiety) Qty: 20 0RF amoxicillin-pot clavulanate 875-125 mg tablet 1 tab PO BID Qty: 14 0RF ibuprofen 600 mg tablet 600 mg PO Q8H PRN (Reason: pain) Qty: 30 0RF acetaminophen 325 mg tablet 650 mg PO TID PRN (Reason: pain) Qty: 30 0RF lidocaine [Lidoderm] 5 % adhesive patch,medicated 2 patch topical QDAY PRN (Reason: pain) Qty: 30 0RF Rx Instructions: leave on most painful area for up to 12 hrs ibuprofen 600 mg tablet 600 mg PO Q8H PRN (Reason: pain) Qty: 14 0RF tizanidine 4 mg tablet 4 mg PO BID PRN (Reason: muscle spasticity) Qty: 20 0RF acetaminophen 500 mg tablet 500 mg PO Q6H PRN (Reason: pain) Qty: 30 0RF hydroxyzine pamoate 25 mg capsule 25 mg PO BID PRN (Reason: anxiety) Qty: 10 0RF albuterol sulfate [Ventolin HFA] 90 mcg/actuation HFA aerosol inhaler 1 inh inhalation Q4H PRN (Reason: shortness of breath or wheezing) Qty: 8.5 0RF amoxicillin-pot clavulanate 875-125 mg tablet 1 tab PO BID Qty: 20 0RF lidocaine HCl [Lidocaine Viscous] 2 % solution 10 ml PO Q4H PRN (Reason: sore throat) Qty: 100 0RF ondansetron 4 mg tablet,disintegrating 4 mg PO Q8H PRN (Reason: nausea and vomiting) Qty: 10 0RF Sudafed PE Head Congestn-Pain 200-10 mg tablet 1 tab PO Q4H PRN (Reason: sinus symptoms) Qty: 20 0RF Benadryl 2 % gel 1 applic topical BID PRN (Reason: skin irritation) Qty: 103 0RF ibuprofen 600 mg tablet 600 mg PO Q6H Qty: 30 0RF omeprazole 20 mg capsule,delayed release(DR/EC) 20 mg PO BID Qty: 30 0RF ondansetron 4 mg tablet,disintegrating 4 mg PO Q8H Qty: 20 0RF albuterol sulfate [Ventolin HFA] 90 mcg/actuation HFA aerosol inhaler 2 puff inhalation Q6H PRN (Reason: shortness of breath or wheezing) Qty: 8.5 0RF albuterol sulfate 90 mcg/actuation HFA aerosol inhaler 2 puff inhalation Q6H PRN (Reason: shortness of breath or wheezing) Qty: 8.5 0RF hyoscyamine sulfate [Levsin] 0.125 mg tablet 0.125 mg PO TID PRN (Reason: cramping) Qty: 10 0RF cyclobenzaprine 7.5 mg tablet 7.5 mg PO TID PRN (Reason: muscle spasm) Qty: 30 0RF hydrocodone-acetaminophen 5-325 mg tablet 1 tab PO BID MDD 10 PRN (Reason: pain) Qty: 14 0RF sumatriptan succinate [Imitrex] 25 mg tablet 25 mg PO Q2H PRN (Reason: migraine headache) Qty: 10 0RF Rx Instructions: do not exceed 8 doses per 24 hrs ondansetron 4 mg tablet,disintegrating 4 mg PO Q8H PRN (Reason: nausea and vomiting) Qty: 20 0RF ibuprofen 800 mg tablet 800 mg PO Q8H PRN (Reason: pain) Qty: 20 0RF dicyclomine 20 mg tablet 20 mg PO QID PRN (Reason: abdominal pain) Qty: 30 0RF cephalexin 500 mg capsule 500 mg PO QID Qty: 40 0RF ondansetron 4 mg tablet,disintegrating 4 mg PO Q8H PRN (Reason: nausea and vomiting) Qty: 20 0RF albuterol sulfate [Ventolin HFA] 90 mcg/actuation HFA aerosol inhaler 2 puff inhalation Q6H PRN (Reason: shortness of breath or wheezing) Qty: 8.5 0RF triamcinolone acetonide 0.025 % ointment 1 applic topical BID Qty: 15 0RF cephalexin 500 mg capsule 500 mg PO QID Qty: 28 0RF dicyclomine 20 mg tablet 20 mg PO BID Qty: 6 0RF cephalexin 500 mg capsule 500 mg PO QID Qty: 40 0RF ondansetron 4 mg tablet,disintegrating 4 mg PO Q8H Qty: 20 0RF dicyclomine 20 mg tablet 20 mg PO TID PRN (Reason: abdominal pain) Qty: 20 0RF Problem List Clinical Impression: Abdominal pain, Constipation Patient/Caregiver Discharge Instructions Education Materials: Abdominal Pain, ED Constipation (Adult) Additional Instructions: Follow-up with your primary care physician in 2 days for reevaluation worsening symptoms or any emergent concern call 911 or go to the nearest emergency room give medication as directed continue to take the medication that was prescribed by me and by the other provider high-fiber diet is advised Print Language: Mongolian Stand Alone Forms: Selin Award Info., Patient Portal Info Letter PA/CERTIFIED SURGICAL TECHNOLOGIST Supervising Physician PA/CERTIFIED SURGICAL TECHNOLOGIST Supervising Physician: Dr. Francisco Burgos
== END 2025-03-13 21:47 | disposition home or self-care (01) ==
LOC: SERX 21:54
PROVIDERS: Emergency Provider Emergency Medicine
DX: K59.00 Constipation, unspecified (principal); F41.9 Anxiety disorder, unspecified
CPT/HCPCS: 96372; 99282; J0500

== ENCOUNTER 2025-03-14 17:52 | Emergency (ER) | payer MEDICAID, SELFPAY ==
[2025-03-14 17:55] VITALS: BP 145/103; PULSE 115; RESP 17; TEMP 37.2; O2SAT 98
[2025-03-14 18:27] VITALS: BMI 21.1
--- NOTE | 2025-03-14 18:30 | PC.NURSE ---
no answer in lobby when called for rme
--- NOTE | 2025-03-14 19:01 | PC.NURSE ---
no answer in lobby when called for rme
== END 2025-03-14 22:51 | disposition left against medical advice (07) ==
PROVIDERS: Emergency Provider Emergency Medicine
DX: Z53.21 Procedure and treatment not carried out due to patient leaving prior to being seen by health care provider (principal)
CPT/HCPCS: 99281

== ENCOUNTER 2025-03-15 07:24 | Emergency (ER) | payer MEDICAID, SELFPAY ==
[2025-03-15 07:35] VITALS: PULSE 86; O2SAT 96
[2025-03-15 07:42] VITALS: BP 146/105; PULSE 98; RESP 17; TEMP 36.7; O2SAT 98; BMI 20.9
--- NOTE | 2025-03-15 07:48 | PC.NURSE ---
pt walked out after provider said he was not ordering medication for pt
--- NOTE | 2025-03-15 07:51 | EDNOTE_ITS ---
<Statement entered by Meggan Wade MD - 03/15/25 16:24> As co-signing physician, I was present and available for consult prn. I concur with the plan and care as documented by the midlevel provider. ED Back Injury Pain RME/HPI General Chief Complaint: Back Pain/Injury Stated Complaint: BACK PAIN Time Seen by Provider: 03/15/25 07:32 Arrival date/time: 03/15/25 07:24 39-year-old male well-known to me presents to the emergency department today via EMS for concerns for acute on chronic back pain patient's had multiple visits to the ER for the same Limitations: no limitations Related Data Previous Rx's ?Medication ?Instructions ?Recorded cetirizine 5 mg-pseudoephedrine ER 1 tab PO BID PRN si nus symptoms 08/30/21 120 mg tablet,extended #14 tabs release,12hr (Zyrtec-D) diphenhydramine HCl 25 mg capsule 25 mg PO Q8H PRN all ergic symptoms 09/23/22 (Benadryl) #30 caps ibuprofen 600 mg tablet 600 mg PO QID PRN pain #20 t abs 09/23/22 ciprofloxacin HCl 500 mg tablet 500 mg PO BID #14 tabs 11/29/22 (Cipro) dicyclomine 20 mg tablet 20 mg PO BID #20 tabs metronidazole 500 mg tablet 500 mg PO BID #14 tabs cyclobenzaprine 7.5 mg tablet 7.5 mg PO TID PRN muscle spasm #30 12/03/22 tabs hydrocodone 5 mg-acetaminophen 325 1 tab PO BID PRN pa in #14 tabs 01/16/23 mg tablet hydroxyzine HCl 50 mg tablet 50 mg PO Q6H PRN anxiety #20 tabs 01/18/24 amoxicillin 875 mg-potassium 1 tab PO BID #14 tabs 09/25 clavulanate 125 mg tablet acetaminophen 325 mg tablet 650 mg (2 x 325 mg) PO TID PRN 02/11/24 pain #30 tabs ibuprofen 600 mg tablet 600 mg PO Q8H PRN pain #30 t abs 02/11/24 ibuprofen 600 mg tablet 600 mg PO Q8H PRN pain #14 t abs 02/15/24 lidocaine 5 % topical patch 2 patch topical QDAY PRN p ain #30 02/15/24 (Lidoderm) ea acetaminophen 500 mg tablet 500 mg PO Q6H PRN pain #30 tabs 09/15/24 tizanidine 4 mg tablet 4 mg PO BID PRN muscle spast icity 09/15/24 #20 tabs sumatriptan succinate 25 mg tablet 25 mg PO Q2H PRN mi graine headache 10/08/24 (Imitrex) #10 tabs albuterol sulfate 90 mcg/actuation 1 inh inhalation Q4 H PRN shortness 11/06/24 aerosol inhaler (Ventolin HFA) of breath or wheezing # 8.5 grams hydroxyzine pamoate 25 mg capsule 25 mg PO BID PRN anx iety #10 caps 11/06/24 ibuprofen 800 mg tablet 800 mg PO Q8H PRN pain #20 t abs 12/21/24 ondansetron 4 mg disintegrating 4 mg PO Q8H PRN nausea and 12/21/24 tablet vomiting #20 tabs dicyclomine 20 mg tablet 20 mg PO QID PRN abdominal p ain 12/27/24 #30 tabs cephalexin 500 mg capsule 500 mg PO QID #40 caps 12/28 albuterol sulfate 90 mcg/actuation 2 puff inhalation Q 6H PRN 01/03/25 aerosol inhaler (Ventolin HFA) shortness of breath or wheezing #8.5 grams ondansetron 4 mg disintegrating 4 mg PO Q8H PRN nausea and 01/03/25 tablet vomiting #20 tabs amoxicillin 875 mg-potassium 1 tab PO BID #20 tabs clavulanate 125 mg tablet ibuprofen 200 mg-phenylephrine HCl 1 tab PO Q4H PRN si nus symptoms 01/16/25 10 mg tablet (Sudafed PE Head #20 tabs Congestion-Pain) lidocaine HCl 2 % mucosal solution 10 ml PO Q4H PRN so re throat #100 01/16/25 (Lidocaine Viscous) mL ondansetron 4 mg disintegrating 4 mg PO Q8H PRN nausea and 01/16/25 tablet vomiting #10 tabs cephalexin 500 mg capsule 500 mg PO QID #28 caps 01/18 triamcinolone acetonide 0.025 % 1 applic topical BID # 15 grams 01/18/25 topical ointment dicyclomine 20 mg tablet 20 mg PO BID #6 tabs 5 diphenhydramine HCl 2 % topical 1 applic topical BID P RN skin 02/11/25 gel (Benadryl) irritation #103 mL cyclobenzaprine 10 mg tablet 10 mg PO TID PRN muscle s pasm 10 03/10/25 days #10 tabs ibuprofen 600 mg tablet 600 mg PO Q6H #30 tabs 03/10 dicyclomine 20 mg tablet 20 mg PO TID PRN abdominal p ain 03/13/25 #20 tabs famotidine 20 mg tablet (Pepcid) 20 mg PO BID 30 days #60 tabs 03/13/25 omeprazole 20 mg capsule,delayed 20 mg PO BID #30 caps 03/13/25 release ondansetron 4 mg disintegrating 4 mg PO Q8H #20 tabs 1 05/13/24 tablet Allergies Allergy/AdvReac Type Severity Reaction Status Date / Time No Known Allergies Allergy Verified 03/15/25 07:38 Review of Systems Review of Systems Systems Reviewed: All systems reviewed, normal except as documented Constitutional Constitutional: Reports system reviewed and no additional complaints, except as documented, Denies fever(s) and Denies headache(s) Eyes Eyes: Reports system reviewed and no additional complaints, except as documented and Denies blurry vision ENT Ears, Nose, Mouth, and Throat: Reports system reviewed and no additional complaints, except as documented, Denies headache(s), Denies nasal congestion and Denies nasal discharge Cardiovascular Cardiovascular: Reports system reviewed and no additional complaints, except as documented, Denies chest pain and Denies dyspnea Respiratory Respiratory: Reports system reviewed and no additional complaints, except as documented, Denies chest congestion, Denies cough and Denies dyspnea Gastrointestinal Gastrointestinal: Reports system reviewed and no additional complaints, except as documented and Denies abdominal pain Musculoskeletal Musculoskeletal: Reports system reviewed and no additional complaints, except as documented and Reports back pain Integumentary/Breasts Skin/Breast: Reports system reviewed and no additional complaints, except as documented and Denies rash Neurologic Neurologic: Reports system reviewed and no additional complaints, except as documented, Reports as per HPI and Denies headache(s) Past Medical History Past Medical History NEUROLOGIC: Negative Neurological Disorders or Seizures CARDIAC: Negative Cardiac Disorders or Congestive Heart Failure RESPIRATORY: Negative Chronic Obstructive Pulmonary Disease (COPD) or Asthma GASTROINTESTINAL: Negative Gastrointestinal Disorders GENITOURINARY: Negative Genitourinary Disorders or Renal Disease MUSCULOSKELETAL: Negative Musculoskeletal Disorders ENDOCRINE: Negative Endocrine Disorders, Diabetes Mellitus Type 1 or Diabetes Mellitus Type 2 HEMATOLOGIC: Negative Blood Disorders or Sickle Cell Disease PSYCHO/SOCIAL: Positive Recreational Drug Use OTHER HISTORY: Positive Chicken Pox; Negative Hospitalization, Blood Transfusions, Blood Transfusion Reaction, Anesthesia Reactions or Cancer Social History SMOKING STATUS: Former smoker SUBSTANCE USE: methamphetamine ED Exam General Limitations: Present no limitations General appearance: Present alert and in no apparent distress Head Head exam: Present atraumatic Eye Eye exam: Present normal appearance, PERRL and EOMI ENT ENT exam: Present normal exam, normal oropharynx and mucous membranes moist Neck Neck exam: Present normal inspection, full ROM and trachea midline Chest Chest inspection: Present normal inspection and symmetric chest wall rise Respiratory Respiratory exam: Present normal lung sounds bilaterally Cardiovascular Cardiovascular exam: Present regular rate, normal rhythm and normal heart sounds Abdominal Exam Abdominal exam: Present soft and normal bowel sounds Extremities Exam Extremities exam: Present normal inspection and full ROM Back Exam Back exam: Present normal inspection and full ROM; Absent tenderness Neurological Exam Neurological exam: Present alert, oriented X3, CN II-XII intact, normal gait and reflexes normal; Absent motor sensory deficit Psychiatric Psychiatric exam: Present normal affect and normal mood Skin Skin exam: Present warm, dry, intact and normal color Course Quality Measures none Vital Signs Vital signs: Vital Signs Temperature 98.1 F 03/15/25 07:42 Pulse Rate 98 03/15/25 07:42 Respiratory Rate 17 03/15/25 07:42 Blood Pressure 146/105 H 03/15/25 07:42 Pulse Oximetry (%) 98 03/15/25 07:42 Oxygen Delivery Method Room Air 03/15/25 07:42 O2 saturation 98% room air within normal limits Back Pain / Injury MDM Narrative MDM Narrative:: 39-year-old male well-known to me presents to the emergency department today via EMS for concerns for acute on chronic back pain patient's had multiple visits to the ER for the same Patient has history of methamphetamine abuse patient uses methamphetamine frequently Clinically patient well-appearing hemodynamically stable I do not believe patient requires any emergent intervention at this time Explained to the patient he should follow-up with his PCP for further evaluation of his chronic back pain Patient has no saddle anesthesia or loss of bowel or bladder patient walks steady gait no abnormal neurological findings Patient discharged home Patient discharged home in no distress to follow-up with primary care doctor in the next 24 to 48 hours and for any worsening symptoms to return to the ER immediately Patient data External records reviewed:: [facility] previous records Clinical information provided by:: patient Social determinants that could affect healthcare access:: substance use Patient has the following chronic illnesses:: See history How is presenting disease/condition affected by chronic disease/condition?: caused by Evaluation data The following diagnostics were reviewed and interpreted by me:: other (specify) (N/A) Lab and/or radiology exams considered but not ordered:: Considered not ordered Interpretation Summary: N/A Medications / Prescriptions Medications or Prescriptions considered but not ordered:: Given no meds Medication administrations:: No meds Consultations Consultation(s) initiated? (list below): No Diagnosis Differential diagnosis back pain/injury: lumbar radiculopathy, sciatica and strain of lumbar region Most likely diagnosis given after review of the tests above:: Back pain Admission Indicated Admission indicated?: not indicated Admission Request Was there a request for admission?: No Disposition Plan Disposition Plan: Discharge Discharge Attestation Discharge Attestation: The patient and all family members were given an opportunity to ask questions and understood the discharge instructions. Discharge instructions specifically effects, indications for sooner follow up or return to the emergency department, and the expected course of current diagnosis. Patient condition: Stable Discharge Plan Plan Patient Disposition: Elopement Discharge Disposition comment: Stable Prescriptions/Referrals Prescriptions/Med Rec: No Action cetirizine-pseudoephedrine [Zyrtec-D] 5-120 mg tablet extended release 12 hr 1 tab PO BID PRN (Reason: sinus symptoms) Qty: 14 0RF diphenhydramine HCl [Benadryl] 25 mg capsule 25 mg PO Q8H PRN (Reason: allergic symptoms) Qty: 30 0RF ibuprofen 600 mg tablet 600 mg PO QID PRN (Reason: pain) Qty: 20 0RF ciprofloxacin HCl [Cipro] 500 mg tablet 500 mg PO BID Qty: 14 0RF metronidazole 500 mg tablet 500 mg PO BID Qty: 14 0RF dicyclomine 20 mg tablet 20 mg PO BID Qty: 20 0RF hydroxyzine HCl 50 mg tablet 50 mg PO Q6H PRN (Reason: anxiety) Qty: 20 0RF amoxicillin-pot clavulanate 875-125 mg tablet 1 tab PO BID Qty: 14 0RF ibuprofen 600 mg tablet 600 mg PO Q8H PRN (Reason: pain) Qty: 30 0RF acetaminophen 325 mg tablet 650 mg PO TID PRN (Reason: pain) Qty: 30 0RF lidocaine [Lidoderm] 5 % adhesive patch,medicated 2 patch topical QDAY PRN (Reason: pain) Qty: 30 0RF Rx Instructions: leave on most painful area for up to 12 hrs ibuprofen 600 mg tablet 600 mg PO Q8H PRN (Reason: pain) Qty: 14 0RF tizanidine 4 mg tablet 4 mg PO BID PRN (Reason: muscle spasticity) Qty: 20 0RF acetaminophen 500 mg tablet 500 mg PO Q6H PRN (Reason: pain) Qty: 30 0RF hydroxyzine pamoate 25 mg capsule 25 mg PO BID PRN (Reason: anxiety) Qty: 10 0RF albuterol sulfate [Ventolin HFA] 90 mcg/actuation HFA aerosol inhaler 1 inh inhalation Q4H PRN (Reason: shortness of breath or wheezing) Qty: 8.5 0RF amoxicillin-pot clavulanate 875-125 mg tablet 1 tab PO BID Qty: 20 0RF lidocaine HCl [Lidocaine Viscous] 2 % solution 10 ml PO Q4H PRN (Reason: sore throat) Qty: 100 0RF ondansetron 4 mg tablet,disintegrating 4 mg PO Q8H PRN (Reason: nausea and vomiting) Qty: 10 0RF Sudafed PE Head Congestn-Pain 200-10 mg tablet 1 tab PO Q4H PRN (Reason: sinus symptoms) Qty: 20 0RF Benadryl 2 % gel 1 applic topical BID PRN (Reason: skin irritation) Qty: 103 0RF cyclobenzaprine 10 mg tablet 10 mg PO TID PRN (Reason: muscle spasm) 10 Days Qty: 10 0RF ibuprofen 600 mg tablet 600 mg PO Q6H Qty: 30 0RF omeprazole 20 mg capsule,delayed release(DR/EC) 20 mg PO BID Qty: 30 0RF famotidine [Pepcid] 20 mg tablet 20 mg PO BID 30 Days Qty: 60 0RF ondansetron 4 mg tablet,disintegrating 4 mg PO Q8H Qty: 20 0RF cyclobenzaprine 7.5 mg tablet 7.5 mg PO TID PRN (Reason: muscle spasm) Qty: 30 0RF hydrocodone-acetaminophen 5-325 mg tablet 1 tab PO BID MDD 10 PRN (Reason: pain) Qty: 14 0RF sumatriptan succinate [Imitrex] 25 mg tablet 25 mg PO Q2H PRN (Reason: migraine headache) Qty: 10 0RF Rx Instructions: do not exceed 8 doses per 24 hrs ondansetron 4 mg tablet,disintegrating 4 mg PO Q8H PRN (Reason: nausea and vomiting) Qty: 20 0RF ibuprofen 800 mg tablet 800 mg PO Q8H PRN (Reason: pain) Qty: 20 0RF dicyclomine 20 mg tablet 20 mg PO QID PRN (Reason: abdominal pain) Qty: 30 0RF cephalexin 500 mg capsule 500 mg PO QID Qty: 40 0RF ondansetron 4 mg tablet,disintegrating 4 mg PO Q8H PRN (Reason: nausea and vomiting) Qty: 20 0RF albuterol sulfate [Ventolin HFA] 90 mcg/actuation HFA aerosol inhaler 2 puff inhalation Q6H PRN (Reason: shortness of breath or wheezing) Qty: 8.5 0RF triamcinolone acetonide 0.025 % ointment 1 applic topical BID Qty: 15 0RF cephalexin 500 mg capsule 500 mg PO QID Qty: 28 0RF dicyclomine 20 mg tablet 20 mg PO BID Qty: 6 0RF dicyclomine 20 mg tablet 20 mg PO TID PRN (Reason: abdominal pain) Qty: 20 0RF Problem List Clinical Impression: Acute exacerbation of chronic low back pain, Methamphetamine abuse Patient/Caregiver Discharge Instructions Education Materials: Addiction: Getting Help Additional Instructions: Please follow up with your primary care doctor in the next 24-48hrs for any worsening symptoms return here immediately Print Language: Turkmen PA/CESAR Supervising Physician PA/OCCUPATIONAL PHYSICIAN Supervising Physician: Dr. wade
== END 2025-03-15 07:51 | disposition left against medical advice (07) ==
LOC: SERX 07:56
PROVIDERS: Emergency Provider Emergency Medicine
DX: M54.50 Low back pain, unspecified (principal); F15.10 Other stimulant abuse, uncomplicated; G89.29 Other chronic pain; Z53.29 Procedure and treatment not carried out because of patient's decision for other reasons
CPT/HCPCS: 99281

== ENCOUNTER 2025-03-16 09:09 | Emergency (ER) | payer MEDICAID, SELFPAY ==
[2025-03-16 09:11] VITALS: PULSE 88; RESP 18; O2SAT 96; BMI 20.3
[2025-03-16 09:18] VITALS: BP 133/89; PULSE 88; RESP 17; TEMP 36.5; O2SAT 96
--- NOTE | 2025-03-16 09:33 | PD.EDBACK ---
ED Back Injury Pain RME/HPI General Chief Complaint: Back Pain/Injury Stated Complaint: BACK PAIN Time Seen by Provider: 03/16/25 09:23 Arrival date/time: 03/16/25 09:09 39-year-old male well-known to me presents to the emergency department today via EMS for concerns for acute on chronic back pain patient's had multiple visits to the ER for the same Patient has history of methamphetamine abuse patient uses methamphetamine frequently Limitations: no limitations Related Data Previous Rx's ?Medication ?Instructions ?Recorded cetirizine 5 mg-pseudoephedrine ER 1 tab PO BID PRN sinus symptoms 08/30/21 120 mg tablet,extended #14 tabs release,12hr (Zyrtec-D) diphenhydramine HCl 25 mg capsule 25 mg PO Q8H PRN allergic symptoms 09/23/22 (Benadryl) #30 caps ibuprofen 600 mg tablet 600 mg PO QID PRN pain #20 tabs 09/23/22 ciprofloxacin HCl 500 mg tablet 500 mg PO BID #14 tabs 11/29/22 (Cipro) dicyclomine 20 mg tablet 20 mg PO BID #20 tabs 11/29/22 metronidazole 500 mg tablet 500 mg PO BID #14 tabs 11/29/22 cyclobenzaprine 7.5 mg tablet 7.5 mg PO TID PRN muscle spasm #30 12/03/22 tabs hydrocodone 5 mg-acetaminophen 325 1 tab PO BID PRN pain #14 tabs 01/16/23 mg tablet hydroxyzine HCl 50 mg tablet 50 mg PO Q6H PRN anxiety #20 tabs 01/18/24 amoxicillin 875 mg-potassium 1 tab PO BID #14 tabs 02/07/24 clavulanate 125 mg tablet acetaminophen 325 mg tablet 650 mg (2 x 325 mg) PO TID PRN 02/11/24 pain #30 tabs ibuprofen 600 mg tablet 600 mg PO Q8H PRN pain #30 tabs 02/11/24 ibuprofen 600 mg tablet 600 mg PO Q8H PRN pain #14 tabs 02/15/24 lidocaine 5 % topical patch 2 patch topical QDAY PRN pain #30 02/15/24 (Lidoderm) ea acetaminophen 500 mg tablet 500 mg PO Q6H PRN pain #30 tabs 09/15/24 tizanidine 4 mg tablet 4 mg PO BID PRN muscle spasticity 05/14/25 #20 tabs sumatriptan succinate 25 mg tablet 25 mg PO Q2H PRN migraine headache 10/08/24 (Imitrex) #10 tabs albuterol sulfate 90 mcg/actuation 1 inh inhalation Q4H PRN shortness 11/06/24 aerosol inhaler (Ventolin HFA) of breath or wheezing #8.5 grams hydroxyzine pamoate 25 mg capsule 25 mg PO BID PRN anxiety #10 caps 11/06/24 ibuprofen 800 mg tablet 800 mg PO Q8H PRN pain #20 tabs 12/21/24 ondansetron 4 mg disintegrating 4 mg PO Q8H PRN nausea and 12/21/24 tablet vomiting #20 tabs dicyclomine 20 mg tablet 20 mg PO QID PRN abdominal pain 12/27/24 #30 tabs cephalexin 500 mg capsule 500 mg PO QID #40 caps 12/28/24 albuterol sulfate 90 mcg/actuation 2 puff inhalation Q6H PRN 01/03/25 aerosol inhaler (Ventolin HFA) shortness of breath or wheezing #8.5 grams ondansetron 4 mg disintegrating 4 mg PO Q8H PRN nausea and 01/03/25 tablet vomiting #20 tabs amoxicillin 875 mg-potassium 1 tab PO BID #20 tabs 01/16/25 clavulanate 125 mg tablet ibuprofen 200 mg-phenylephrine HCl 1 tab PO Q4H PRN sinus symptoms 01/16/25 10 mg tablet (Sudafed PE Head #20 tabs Congestion-Pain) lidocaine HCl 2 % mucosal solution 10 ml PO Q4H PRN sore throat #100 01/16/25 (Lidocaine Viscous) mL ondansetron 4 mg disintegrating 4 mg PO Q8H PRN nausea and 01/16/25 tablet vomiting #10 tabs cephalexin 500 mg capsule 500 mg PO QID #28 caps 01/18/25 triamcinolone acetonide 0.025 % 1 applic topical BID #15 grams 01/18/25 topical ointment dicyclomine 20 mg tablet 20 mg PO BID #6 tabs 01/30/25 diphenhydramine HCl 2 % topical 1 applic topical BID PRN skin 02/11/25 gel (Benadryl) irritation #103 mL cyclobenzaprine 10 mg tablet 10 mg PO TID PRN muscle spasm 10 03/10/25 days #10 tabs ibuprofen 600 mg tablet 600 mg PO Q6H #30 tabs 03/10/25 dicyclomine 20 mg tablet 20 mg PO TID PRN abdominal pain 03/13/25 #20 tabs famotidine 20 mg tablet (Pepcid) 20 mg PO BID 30 days #60 tabs 03/13/25 omeprazole 20 mg capsule,delayed 20 mg PO BID #30 caps 03/13/25 release ondansetron 4 mg disintegrating 4 mg PO Q8H #20 tabs 03/13/25 tablet Allergies Allergy/AdvReac Type Severity Reaction Status Date / Time No Known Allergies Allergy Verified 03/16/25 12:07 Review of Systems Review of Systems Systems Reviewed: All systems reviewed, normal except as documented Constitutional Constitutional: Reports system reviewed and no additional complaints, except as documented, Denies fever(s) and Denies headache(s) Eyes Eyes: Reports system reviewed and no additional complaints, except as documented and Denies blurry vision ENT Ears, Nose, Mouth, and Throat: Reports system reviewed and no additional complaints, except as documented, Denies headache(s), Denies nasal congestion and Denies nasal discharge Cardiovascular Cardiovascular: Reports system reviewed and no additional complaints, except as documented, Denies chest pain and Denies dyspnea Respiratory Respiratory: Reports system reviewed and no additional complaints, except as documented, Denies chest congestion, Denies cough and Denies dyspnea Gastrointestinal Gastrointestinal: Reports system reviewed and no additional complaints, except as documented and Denies abdominal pain Musculoskeletal Musculoskeletal: Reports system reviewed and no additional complaints, except as documented and Reports back pain Integumentary/Breasts Skin/Breast: Reports system reviewed and no additional complaints, except as documented and Denies rash Neurologic Neurologic: Reports system reviewed and no additional complaints, except as documented, Reports as per HPI and Denies headache(s) Past Medical History Past Medical History NEUROLOGIC: Negative Neurological Disorders or Seizures CARDIAC: Negative Cardiac Disorders or Congestive Heart Failure RESPIRATORY: Negative Chronic Obstructive Pulmonary Disease (COPD) or Asthma GASTROINTESTINAL: Negative Gastrointestinal Disorders GENITOURINARY: Negative Genitourinary Disorders or Renal Disease MUSCULOSKELETAL: Negative Musculoskeletal Disorders ENDOCRINE: Negative Endocrine Disorders, Diabetes Mellitus Type 1 or Diabetes Mellitus Type 2 HEMATOLOGIC: Negative Blood Disorders or Sickle Cell Disease PSYCHO/SOCIAL: Positive Recreational Drug Use OTHER HISTORY: Positive Chicken Pox; Negative Hospitalization, Blood Transfusions, Blood Transfusion Reaction, Anesthesia Reactions or Cancer Social History SMOKING STATUS: Never smoker SUBSTANCE USE: methamphetamine ED Exam General Limitations: Present no limitations General appearance: Present alert and in no apparent distress Head Head exam: Present atraumatic Eye Eye exam: Present normal appearance, PERRL and EOMI ENT ENT exam: Present normal exam, normal oropharynx and mucous membranes moist Neck Neck exam: Present normal inspection, full ROM and trachea midline Chest Chest inspection: Present normal inspection and symmetric chest wall rise Respiratory Respiratory exam: Present normal lung sounds bilaterally; Absent respiratory distress Cardiovascular Cardiovascular exam: Present regular rate, normal rhythm and normal heart sounds Abdominal Exam Abdominal exam: Present soft and normal bowel sounds; Absent distention, tenderness, guarding, rebound or rigidity Extremities Exam Extremities exam: Present normal inspection and full ROM Back Exam Back exam: Present normal inspection and full ROM; Absent tenderness Neurological Exam Neurological exam: Present alert, oriented X3, CN II-XII intact, normal gait and reflexes normal; Absent motor sensory deficit Psychiatric Psychiatric exam: Present normal affect and normal mood Skin Skin exam: Present warm, dry, intact and normal color Course Quality Measures none Vital Signs Vital signs: Vital Signs Temperature 97.7 F 03/16/25 09:18 Pulse Rate 88 03/16/25 09:18 Respiratory Rate 17 03/16/25 09:18 Blood Pressure 133/89 H 03/16/25 09:18 Pulse Oximetry (%) 96 03/16/25 09:18 Oxygen Delivery Method Room Air 03/16/25 09:18 O2 saturation 96% room air within normal limits Back Pain / Injury MDM Narrative MDM Narrative:: 39-year-old male well-known to me presents to the emergency department today via EMS for concerns for acute on chronic back pain patient's had multiple visits to the ER for the same Patient has history of methamphetamine abuse patient uses methamphetamine frequently Clinically patient well-appearing hemodynamically stable I do not believe patient requires any emergent intervention at this time Explained to the patient he should follow-up with his PCP for further evaluation of his chronic back pain Patient has no saddle anesthesia or loss of bowel or bladder patient walks steady gait no abnormal neurological findings Patient discharged home Patient discharged home in no distress to follow-up with primary care doctor in the next 24 to 48 hours and for any worsening symptoms to return to the ER immediately Patient data External records reviewed:: [facility] previous records Clinical information provided by:: patient Social determinants that could affect healthcare access:: substance use Patient has the following chronic illnesses:: Substance abuse, psychiatric disorder How is presenting disease/condition affected by chronic disease/condition?: caused by Evaluation data The following diagnostics were reviewed and interpreted by me:: other (specify) Lab and/or radiology exams considered but not ordered:: Considered not ordered Interpretation Summary: N/A Medications / Prescriptions Medications or Prescriptions considered but not ordered:: N/A Medication administrations:: N/A Consultations Consultation(s) initiated? (list below): No Diagnosis Differential diagnosis back pain/injury: lumbar radiculopathy, sciatica and strain of lumbar region Most likely diagnosis given after review of the tests above:: Back pain Admission Indicated Admission indicated?: not indicated Admission Request Was there a request for admission?: No Disposition Plan Disposition Plan: Discharge Discharge Attestation Discharge Attestation: The patient and all family members were given an opportunity to ask questions and understood the discharge instructions. Discharge instructions specifically effects, indications for sooner follow up or return to the emergency department, and the expected course of current diagnosis. Patient condition: Stable Discharge Plan Plan Patient Disposition: HOME (Self Care) Discharge Disposition comment: Stable Prescriptions/Referrals Prescriptions/Med Rec: No Action cetirizine-pseudoephedrine [Zyrtec-D] 5-120 mg tablet extended release 12 hr 1 tab PO BID PRN (Reason: sinus symptoms) Qty: 14 0RF diphenhydramine HCl [Benadryl] 25 mg capsule 25 mg PO Q8H PRN (Reason: allergic symptoms) Qty: 30 0RF ibuprofen 600 mg tablet 600 mg PO QID PRN (Reason: pain) Qty: 20 0RF ciprofloxacin HCl [Cipro] 500 mg tablet 500 mg PO BID Qty: 14 0RF metronidazole 500 mg tablet 500 mg PO BID Qty: 14 0RF dicyclomine 20 mg tablet 20 mg PO BID Qty: 20 0RF hydroxyzine HCl 50 mg tablet 50 mg PO Q6H PRN (Reason: anxiety) Qty: 20 0RF amoxicillin-pot clavulanate 875-125 mg tablet 1 tab PO BID Qty: 14 0RF ibuprofen 600 mg tablet 600 mg PO Q8H PRN (Reason: pain) Qty: 30 0RF acetaminophen 325 mg tablet 650 mg PO TID PRN (Reason: pain) Qty: 30 0RF lidocaine [Lidoderm] 5 % adhesive patch,medicated 2 patch topical QDAY PRN (Reason: pain) Qty: 30 0RF Rx Instructions: leave on most painful area for up to 12 hrs ibuprofen 600 mg tablet 600 mg PO Q8H PRN (Reason: pain) Qty: 14 0RF tizanidine 4 mg tablet 4 mg PO BID PRN (Reason: muscle spasticity) Qty: 20 0RF acetaminophen 500 mg tablet 500 mg PO Q6H PRN (Reason: pain) Qty: 30 0RF hydroxyzine pamoate 25 mg capsule 25 mg PO BID PRN (Reason: anxiety) Qty: 10 0RF albuterol sulfate [Ventolin HFA] 90 mcg/actuation HFA aerosol inhaler 1 inh inhalation Q4H PRN (Reason: shortness of breath or wheezing) Qty: 8.5 0RF amoxicillin-pot clavulanate 875-125 mg tablet 1 tab PO BID Qty: 20 0RF lidocaine HCl [Lidocaine Viscous] 2 % solution 10 ml PO Q4H PRN (Reason: sore throat) Qty: 100 0RF ondansetron 4 mg tablet,disintegrating 4 mg PO Q8H PRN (Reason: nausea and vomiting) Qty: 10 0RF Sudafed PE Head Congestn-Pain 200-10 mg tablet 1 tab PO Q4H PRN (Reason: sinus symptoms) Qty: 20 0RF Benadryl 2 % gel 1 applic topical BID PRN (Reason: skin irritation) Qty: 103 0RF cyclobenzaprine 10 mg tablet 10 mg PO TID PRN (Reason: muscle spasm) 10 Days Qty: 10 0RF ibuprofen 600 mg tablet 600 mg PO Q6H Qty: 30 0RF omeprazole 20 mg capsule,delayed release(DR/EC) 20 mg PO BID Qty: 30 0RF famotidine [Pepcid] 20 mg tablet 20 mg PO BID 30 Days Qty: 60 0RF ondansetron 4 mg tablet,disintegrating 4 mg PO Q8H Qty: 20 0RF cyclobenzaprine 7.5 mg tablet 7.5 mg PO TID PRN (Reason: muscle spasm) Qty: 30 0RF hydrocodone-acetaminophen 5-325 mg tablet 1 tab PO BID MDD 10 PRN (Reason: pain) Qty: 14 0RF sumatriptan succinate [Imitrex] 25 mg tablet 25 mg PO Q2H PRN (Reason: migraine headache) Qty: 10 0RF Rx Instructions: do not exceed 8 doses per 24 hrs ondansetron 4 mg tablet,disintegrating 4 mg PO Q8H PRN (Reason: nausea and vomiting) Qty: 20 0RF ibuprofen 800 mg tablet 800 mg PO Q8H PRN (Reason: pain) Qty: 20 0RF dicyclomine 20 mg tablet 20 mg PO QID PRN (Reason: abdominal pain) Qty: 30 0RF cephalexin 500 mg capsule 500 mg PO QID Qty: 40 0RF ondansetron 4 mg tablet,disintegrating 4 mg PO Q8H PRN (Reason: nausea and vomiting) Qty: 20 0RF albuterol sulfate [Ventolin HFA] 90 mcg/actuation HFA aerosol inhaler 2 puff inhalation Q6H PRN (Reason: shortness of breath or wheezing) Qty: 8.5 0RF triamcinolone acetonide 0.025 % ointment 1 applic topical BID Qty: 15 0RF cephalexin 500 mg capsule 500 mg PO QID Qty: 28 0RF dicyclomine 20 mg tablet 20 mg PO BID Qty: 6 0RF dicyclomine 20 mg tablet 20 mg PO TID PRN (Reason: abdominal pain) Qty: 20 0RF Problem List Clinical Impression: Acute exacerbation of chronic low back pain, Methamphetamine abuse Patient/Caregiver Discharge Instructions Education Materials: ED Chronic Pain Additional Instructions: Please follow up with your primary care doctor in the next 24-48hrs for any worsening symptoms return here immediately Print Language: Portuguese Stand Alone Forms: Selin Award Info., Patient Portal Info Letter PA/GEODUCK DIVER Supervising Physician PA/GEODUCK DIVER Supervising Physician: Dr. Murphy
== END 2025-03-16 09:47 | disposition home or self-care (01) ==
LOC: SERX 09:51
PROVIDERS: Emergency Provider Family Medicine
DX: M54.50 Low back pain, unspecified (principal); F15.10 Other stimulant abuse, uncomplicated; G89.29 Other chronic pain
CPT/HCPCS: 99281

== ENCOUNTER 2025-03-16 12:04 | Emergency (ER) | payer MEDICAID, SELFPAY ==
[2025-03-16 12:04] VITALS: PULSE 87; RESP 18; O2SAT 98; BMI 20.3
[2025-03-16 13:07] VITALS: BP 134/80; PULSE 75; RESP 19; TEMP 36.8; O2SAT 98
--- NOTE | 2025-03-16 13:08 | PD.EDPSYCH ---
ED Psych RME/HPI General Chief Complaint: Abdominal Pain Stated Complaint: GENITAL PAIN RADIATING TO LOWER ABD X3 DAYS Time Seen by Provider: 03/16/25 12:33 Arrival date/time: 03/16/25 12:04 39-year-old male with medical history significant for methamphetamine use presents to the emergency department for complaints of generalized pain patient has multiple visits for the same Limitations: no limitations Related Data Previous Rx's ?Medication ?Instructions ?Recorded cetirizine 5 mg-pseudoephedrine ER 1 tab PO BID PRN sinus symptoms 08/30/21 120 mg tablet,extended #14 tabs release,12hr (Zyrtec-D) diphenhydramine HCl 25 mg capsule 25 mg PO Q8H PRN allergic symptoms 09/23/22 (Benadryl) #30 caps ibuprofen 600 mg tablet 600 mg PO QID PRN pain #20 tabs 09/23/22 ciprofloxacin HCl 500 mg tablet 500 mg PO BID #14 tabs 11/29/22 (Cipro) dicyclomine 20 mg tablet 20 mg PO BID #20 tabs 11/29/22 metronidazole 500 mg tablet 500 mg PO BID #14 tabs 11/29/22 cyclobenzaprine 7.5 mg tablet 7.5 mg PO TID PRN muscle spasm #30 12/03/22 tabs hydrocodone 5 mg-acetaminophen 325 1 tab PO BID PRN pain #14 tabs 01/16/23 mg tablet hydroxyzine HCl 50 mg tablet 50 mg PO Q6H PRN anxiety #20 tabs 01/18/24 amoxicillin 875 mg-potassium 1 tab PO BID #14 tabs 02/07/24 clavulanate 125 mg tablet acetaminophen 325 mg tablet 650 mg (2 x 325 mg) PO TID PRN 02/11/24 pain #30 tabs ibuprofen 600 mg tablet 600 mg PO Q8H PRN pain #30 tabs 02/11/24 ibuprofen 600 mg tablet 600 mg PO Q8H PRN pain #14 tabs 02/15/24 lidocaine 5 % topical patch 2 patch topical QDAY PRN pain #30 02/15/24 (Lidoderm) ea acetaminophen 500 mg tablet 500 mg PO Q6H PRN pain #30 tabs 09/15/24 tizanidine 4 mg tablet 4 mg PO BID PRN muscle spasticity 09/15/24 #20 tabs sumatriptan succinate 25 mg tablet 25 mg PO Q2H PRN migraine headache 10/08/24 (Imitrex) #10 tabs albuterol sulfate 90 mcg/actuation 1 inh inhalation Q4H PRN shortness 11/06/24 aerosol inhaler (Ventolin HFA) of breath or wheezing #8.5 grams hydroxyzine pamoate 25 mg capsule 25 mg PO BID PRN anxiety #10 caps 11/06/24 ibuprofen 800 mg tablet 800 mg PO Q8H PRN pain #20 tabs 12/21/24 ondansetron 4 mg disintegrating 4 mg PO Q8H PRN nausea and 12/21/24 tablet vomiting #20 tabs dicyclomine 20 mg tablet 20 mg PO QID PRN abdominal pain 12/27/24 #30 tabs cephalexin 500 mg capsule 500 mg PO QID #40 caps 12/28/24 albuterol sulfate 90 mcg/actuation 2 puff inhalation Q6H PRN 01/03/25 aerosol inhaler (Ventolin HFA) shortness of breath or wheezing #8.5 grams ondansetron 4 mg disintegrating 4 mg PO Q8H PRN nausea and 01/03/25 tablet vomiting #20 tabs amoxicillin 875 mg-potassium 1 tab PO BID #20 tabs 01/16/25 clavulanate 125 mg tablet ibuprofen 200 mg-phenylephrine HCl 1 tab PO Q4H PRN sinus symptoms 01/16/25 10 mg tablet (Sudafed PE Head #20 tabs Congestion-Pain) lidocaine HCl 2 % mucosal solution 10 ml PO Q4H PRN sore throat #100 01/16/25 (Lidocaine Viscous) mL ondansetron 4 mg disintegrating 4 mg PO Q8H PRN nausea and 01/16/25 tablet vomiting #10 tabs cephalexin 500 mg capsule 500 mg PO QID #28 caps 01/18/25 triamcinolone acetonide 0.025 % 1 applic topical BID #15 grams 01/18/25 topical ointment dicyclomine 20 mg tablet 20 mg PO BID #6 tabs 01/30/25 diphenhydramine HCl 2 % topical 1 applic topical BID PRN skin 02/11/25 gel (Benadryl) irritation #103 mL cyclobenzaprine 10 mg tablet 10 mg PO TID PRN muscle spasm 10 03/10/25 days #10 tabs ibuprofen 600 mg tablet 600 mg PO Q6H #30 tabs 03/10/25 dicyclomine 20 mg tablet 20 mg PO TID PRN abdominal pain 03/13/25 #20 tabs famotidine 20 mg tablet (Pepcid) 20 mg PO BID 30 days #60 tabs 03/13/25 omeprazole 20 mg capsule,delayed 20 mg PO BID #30 caps 03/13/25 release ondansetron 4 mg disintegrating 4 mg PO Q8H #20 tabs 03/13/25 tablet Allergies Allergy/AdvReac Type Severity Reaction Status Date / Time No Known Allergies Allergy Verified 03/16/25 12:07 Review of Systems Review of Systems Systems Reviewed: All systems reviewed, normal except as documented Constitutional Constitutional: Reports system reviewed and no additional complaints, except as documented, Denies fever(s) and Denies headache(s) Eyes Eyes: Reports system reviewed and no additional complaints, except as documented and Denies blurry vision ENT Ears, Nose, Mouth, and Throat: Reports system reviewed and no additional complaints, except as documented, Denies headache(s), Denies nasal congestion and Denies nasal discharge Cardiovascular Cardiovascular: Reports system reviewed and no additional complaints, except as documented, Denies chest pain and Denies dyspnea Respiratory Respiratory: Reports system reviewed and no additional complaints, except as documented, Denies chest congestion, Denies cough and Denies dyspnea Gastrointestinal Gastrointestinal: Reports system reviewed and no additional complaints, except as documented and Denies abdominal pain Integumentary/Breasts Skin/Breast: Reports system reviewed and no additional complaints, except as documented and Denies rash Neurologic Neurologic: Reports system reviewed and no additional complaints, except as documented, Reports as per HPI and Denies headache(s) Psychiatric Psychiatric: Reports system reviewed and no additional complaints, except as documented and Reports anxiety Past Medical History Past Medical History NEUROLOGIC: Negative Neurological Disorders or Seizures CARDIAC: Negative Cardiac Disorders or Congestive Heart Failure RESPIRATORY: Negative Chronic Obstructive Pulmonary Disease (COPD) or Asthma GASTROINTESTINAL: Negative Gastrointestinal Disorders GENITOURINARY: Negative Genitourinary Disorders or Renal Disease MUSCULOSKELETAL: Negative Musculoskeletal Disorders ENDOCRINE: Negative Endocrine Disorders, Diabetes Mellitus Type 1 or Diabetes Mellitus Type 2 HEMATOLOGIC: Negative Blood Disorders or Sickle Cell Disease PSYCHO/SOCIAL: Positive Recreational Drug Use OTHER HISTORY: Positive Chicken Pox; Negative Hospitalization, Blood Transfusions, Blood Transfusion Reaction, Anesthesia Reactions or Cancer Social History SMOKING STATUS: Never smoker SUBSTANCE USE: methamphetamine ED Exam General Limitations: Present no limitations General appearance: Present alert and in no apparent distress Head Head exam: Present atraumatic and normal inspection Eye Eye exam: Present normal appearance, PERRL and EOMI; Absent conjunctival injection ENT ENT exam: Present normal exam, normal oropharynx and mucous membranes moist Neck Neck exam: Present normal inspection, full ROM and trachea midline Chest Chest inspection: Present normal inspection and symmetric chest wall rise Respiratory Respiratory exam: Present normal lung sounds bilaterally; Absent respiratory distress Cardiovascular Cardiovascular exam: Present regular rate, normal rhythm and normal heart sounds Abdominal Exam Abdominal exam: Present soft and normal bowel sounds; Absent distention, tenderness, guarding, rebound or rigidity Extremities Exam Extremities exam: Present normal inspection and full ROM Back Exam Back exam: Present normal inspection and full ROM Neurological Exam Neurological exam: Present alert, oriented X3 and CN II-XII intact Psychiatric Psychiatric exam: Present normal affect and normal mood Skin Skin exam: Present warm, dry, intact and normal color; Absent rash Course Quality Measures none Vital Signs Vital signs: Vital Signs Temperature 98.2 F 03/16/25 13:07 Pulse Rate 75 03/16/25 13:07 Respiratory Rate 19 03/16/25 13:07 Blood Pressure 134/80 H 03/16/25 13:07 Pulse Oximetry (%) 98 03/16/25 13:07 Oxygen Delivery Method Room Air 03/16/25 13:07 O2 saturation 98% room air within normal limits Psych MDM Narrative MDM Narrative:: 39-year-old male with medical history significant for methamphetamine use presents to the emergency department for complaints of generalized pain patient has multiple visits for the same Attempted to have a further conversation with patient about his chronic pain Patient reports that he wants CAT scans from his toes to his head as he has pain everywhere Explained to the patient has had multiple imaging in the past as well as lab work at this time patient does not meet criteria for any other further imaging Explained to the patient he has any emergency concerns to return meetly for further evaluation otherwise follow-up PCP for further evaluation Patient data External records reviewed:: [facility] previous records Clinical information provided by:: patient Social determinants that could affect healthcare access:: substance use Patient has the following chronic illnesses:: See history How is presenting disease/condition affected by chronic disease/condition?: caused by Evaluation data The following diagnostics were reviewed and interpreted by me:: other (specify) Lab and/or radiology exams considered but not ordered:: Considered not ordered Interpretation Summary: N/A Medications / Prescriptions Medications or Prescriptions considered but not ordered:: No meds Medication administrations:: No med Consultations Consultation(s) initiated? (list below): No Diagnosis Psych Differential Diagnosis: acute psychosis, chronic schizophrenia and acute anxiety Most likely diagnosis given after review of the tests above:: Anxiety, drug abuse Admission Indicated Admission indicated?: not indicated Admission Request Was there a request for admission?: No Disposition Plan Disposition Plan: Discharge Discharge Attestation Discharge Attestation: The patient and all family members were given an opportunity to ask questions and understood the discharge instructions. Discharge instructions specifically effects, indications for sooner follow up or return to the emergency department, and the expected course of current diagnosis. Patient condition: Stable Discharge Plan Plan Patient Disposition: HOME (Self Care) Discharge Disposition comment: stable Prescriptions/Referrals Prescriptions/Med Rec: No Action cetirizine-pseudoephedrine [Zyrtec-D] 5-120 mg tablet extended release 12 hr 1 tab PO BID PRN (Reason: sinus symptoms) Qty: 14 0RF diphenhydramine HCl [Benadryl] 25 mg capsule 25 mg PO Q8H PRN (Reason: allergic symptoms) Qty: 30 0RF ibuprofen 600 mg tablet 600 mg PO QID PRN (Reason: pain) Qty: 20 0RF ciprofloxacin HCl [Cipro] 500 mg tablet 500 mg PO BID Qty: 14 0RF metronidazole 500 mg tablet 500 mg PO BID Qty: 14 0RF dicyclomine 20 mg tablet 20 mg PO BID Qty: 20 0RF hydroxyzine HCl 50 mg tablet 50 mg PO Q6H PRN (Reason: anxiety) Qty: 20 0RF amoxicillin-pot clavulanate 875-125 mg tablet 1 tab PO BID Qty: 14 0RF ibuprofen 600 mg tablet 600 mg PO Q8H PRN (Reason: pain) Qty: 30 0RF acetaminophen 325 mg tablet 650 mg PO TID PRN (Reason: pain) Qty: 30 0RF lidocaine [Lidoderm] 5 % adhesive patch,medicated 2 patch topical QDAY PRN (Reason: pain) Qty: 30 0RF Rx Instructions: leave on most painful area for up to 12 hrs ibuprofen 600 mg tablet 600 mg PO Q8H PRN (Reason: pain) Qty: 14 0RF tizanidine 4 mg tablet 4 mg PO BID PRN (Reason: muscle spasticity) Qty: 20 0RF acetaminophen 500 mg tablet 500 mg PO Q6H PRN (Reason: pain) Qty: 30 0RF hydroxyzine pamoate 25 mg capsule 25 mg PO BID PRN (Reason: anxiety) Qty: 10 0RF albuterol sulfate [Ventolin HFA] 90 mcg/actuation HFA aerosol inhaler 1 inh inhalation Q4H PRN (Reason: shortness of breath or wheezing) Qty: 8.5 0RF amoxicillin-pot clavulanate 875-125 mg tablet 1 tab PO BID Qty: 20 0RF lidocaine HCl [Lidocaine Viscous] 2 % solution 10 ml PO Q4H PRN (Reason: sore throat) Qty: 100 0RF ondansetron 4 mg tablet,disintegrating 4 mg PO Q8H PRN (Reason: nausea and vomiting) Qty: 10 0RF Sudafed PE Head Congestn-Pain 200-10 mg tablet 1 tab PO Q4H PRN (Reason: sinus symptoms) Qty: 20 0RF Benadryl 2 % gel 1 applic topical BID PRN (Reason: skin irritation) Qty: 103 0RF cyclobenzaprine 10 mg tablet 10 mg PO TID PRN (Reason: muscle spasm) 10 Days Qty: 10 0RF ibuprofen 600 mg tablet 600 mg PO Q6H Qty: 30 0RF omeprazole 20 mg capsule,delayed release(DR/EC) 20 mg PO BID Qty: 30 0RF famotidine [Pepcid] 20 mg tablet 20 mg PO BID 30 Days Qty: 60 0RF ondansetron 4 mg tablet,disintegrating 4 mg PO Q8H Qty: 20 0RF cyclobenzaprine 7.5 mg tablet 7.5 mg PO TID PRN (Reason: muscle spasm) Qty: 30 0RF hydrocodone-acetaminophen 5-325 mg tablet 1 tab PO BID MDD 10 PRN (Reason: pain) Qty: 14 0RF sumatriptan succinate [Imitrex] 25 mg tablet 25 mg PO Q2H PRN (Reason: migraine headache) Qty: 10 0RF Rx Instructions: do not exceed 8 doses per 24 hrs ondansetron 4 mg tablet,disintegrating 4 mg PO Q8H PRN (Reason: nausea and vomiting) Qty: 20 0RF ibuprofen 800 mg tablet 800 mg PO Q8H PRN (Reason: pain) Qty: 20 0RF dicyclomine 20 mg tablet 20 mg PO QID PRN (Reason: abdominal pain) Qty: 30 0RF cephalexin 500 mg capsule 500 mg PO QID Qty: 40 0RF ondansetron 4 mg tablet,disintegrating 4 mg PO Q8H PRN (Reason: nausea and vomiting) Qty: 20 0RF albuterol sulfate [Ventolin HFA] 90 mcg/actuation HFA aerosol inhaler 2 puff inhalation Q6H PRN (Reason: shortness of breath or wheezing) Qty: 8.5 0RF triamcinolone acetonide 0.025 % ointment 1 applic topical BID Qty: 15 0RF cephalexin 500 mg capsule 500 mg PO QID Qty: 28 0RF dicyclomine 20 mg tablet 20 mg PO BID Qty: 6 0RF dicyclomine 20 mg tablet 20 mg PO TID PRN (Reason: abdominal pain) Qty: 20 0RF Referrals: No Primary/Family,Physician [Primary Care Provider] - In 1 week Problem List Clinical Impression: Methamphetamine abuse Patient/Caregiver Discharge Instructions Education Materials: Addiction: Getting Help Additional Instructions: Please follow up with your primary care doctor in the next 24-48hrs for any worsening symptoms return here immediately Print Language: Lithuanian Stand Alone Forms: [employer] Award Info., Patient Portal Info Letter PA/SENIOR COST ESTIMATOR Supervising Physician PA/CESAR Supervising Physician: Dr dailey
== END 2025-03-16 15:20 | disposition home or self-care (01) ==
PROVIDERS: Emergency Provider Family Medicine
DX: F15.10 Other stimulant abuse, uncomplicated (principal)
CPT/HCPCS: 99281

== ENCOUNTER 2025-03-26 03:02 | Emergency (ER) | payer MEDICAID, SELFPAY ==
[2025-03-26 03:04] VITALS: PULSE 112; BMI 20.3
[2025-03-26 03:18] VITALS: BP 158/104; PULSE 136; RESP 19; TEMP 36.6; O2SAT 98
--- NOTE | 2025-03-26 03:34 | PC.NURSE ---
PATIENT WAS CALLED BY STAFF TO GO TO RME ROOM TO BE EVALUATED BY PROVIDER, PATIENT REFUSED.
--- NOTE | 2025-03-26 03:49 | PC.NURSE ---
PATIENT CONTINUES TO BE NON-COOPERATIVE AND REFUSING TO GO TO RME ROOM TO SEE PROVIDER, PATIENT STATING HE WOULD RATHER GO HOME AND CHECK ON HIS KIDS.
--- NOTE | 2025-03-26 04:15 | PC.NURSE ---
PATIENT REFUSING EKG, DR. WHITING NOTIFIED.
--- NOTE | 2025-03-26 04:32 | PC.NURSE ---
PATIENT LEFT ED AT THIS TIME.
--- NOTE | 2025-03-26 05:37 | PD.EDSOB ---
ED SOB =RME/HPI General Chief Complaint: Shortness of Breath/Dyspnea Stated Complaint: HEAD, FACE, AND ARMS FEEL FUNNY; DIFFICULTY BREATH Time Seen by Provider: 03/26/25 03:40 Arrival date/time: 03/26/25 03:02 RME / HPI RME / HPI Narrative: DR. SINGH MAIN ED EVALUATION: Patient well-known to the ED with known long-standing methamphetamine abuse presenting with a wide variety of complaints, including suspected oral infection, CP/SOB, of unclear duration. PMH: Recreational Drug Abuse PSH: Non-contributory Allergies: NKDA Social: Long-standing Methamphetamine Abuse, Related Data Previous Rx's ?Medication ?Instructions ?Recorded cetirizine 5 mg-pseudoephedrine ER 1 tab PO BID PRN sinus symptoms 08/30/21 120 mg tablet,extended #14 tabs release,12hr (Zyrtec-D) diphenhydramine HCl 25 mg capsule 25 mg PO Q8H PRN allergic symptoms 09/23/22 (Benadryl) #30 caps ibuprofen 600 mg tablet 600 mg PO QID PRN pain #20 tabs 09/23/22 ciprofloxacin HCl 500 mg tablet 500 mg PO BID #14 tabs 11/29/22 (Cipro) dicyclomine 20 mg tablet 20 mg PO BID #20 tabs 11/29/22 metronidazole 500 mg tablet 500 mg PO BID #14 tabs 11/29/22 cyclobenzaprine 7.5 mg tablet 7.5 mg PO TID PRN muscle spasm #30 12/03/22 tabs hydrocodone 5 mg-acetaminophen 325 1 tab PO BID PRN pain #14 tabs 01/16/23 mg tablet hydroxyzine HCl 50 mg tablet 50 mg PO Q6H PRN anxiety #20 tabs 01/18/24 amoxicillin 875 mg-potassium 1 tab PO BID #14 tabs 02/07/24 clavulanate 125 mg tablet acetaminophen 325 mg tablet 650 mg (2 x 325 mg) PO TID PRN 02/11/24 pain #30 tabs ibuprofen 600 mg tablet 600 mg PO Q8H PRN pain #30 tabs 10/09/24 ibuprofen 600 mg tablet 600 mg PO Q8H PRN pain #14 tabs 02/15/24 lidocaine 5 % topical patch 2 patch topical QDAY PRN pain #30 02/15/24 (Lidoderm) ea acetaminophen 500 mg tablet 500 mg PO Q6H PRN pain #30 tabs 09/15/24 tizanidine 4 mg tablet 4 mg PO BID PRN muscle spasticity 09/15/24 #20 tabs sumatriptan succinate 25 mg tablet 25 mg PO Q2H PRN migraine headache 10/08/24 (Imitrex) #10 tabs albuterol sulfate 90 mcg/actuation 1 inh inhalation Q4H PRN shortness 11/06/24 aerosol inhaler (Ventolin HFA) of breath or wheezing #8.5 grams hydroxyzine pamoate 25 mg capsule 25 mg PO BID PRN anxiety #10 caps 11/06/24 ibuprofen 800 mg tablet 800 mg PO Q8H PRN pain #20 tabs 12/21/24 ondansetron 4 mg disintegrating 4 mg PO Q8H PRN nausea and 12/21/24 tablet vomiting #20 tabs dicyclomine 20 mg tablet 20 mg PO QID PRN abdominal pain 12/27/24 #30 tabs cephalexin 500 mg capsule 500 mg PO QID #40 caps 12/28/24 albuterol sulfate 90 mcg/actuation 2 puff inhalation Q6H PRN 01/03/25 aerosol inhaler (Ventolin HFA) shortness of breath or wheezing #8.5 grams ondansetron 4 mg disintegrating 4 mg PO Q8H PRN nausea and 01/03/25 tablet vomiting #20 tabs amoxicillin 875 mg-potassium 1 tab PO BID #20 tabs 01/16/25 clavulanate 125 mg tablet ibuprofen 200 mg-phenylephrine HCl 1 tab PO Q4H PRN sinus symptoms 01/16/25 10 mg tablet (Sudafed PE Head #20 tabs Congestion-Pain) lidocaine HCl 2 % mucosal solution 10 ml PO Q4H PRN sore throat #100 01/16/25 (Lidocaine Viscous) mL ondansetron 4 mg disintegrating 4 mg PO Q8H PRN nausea and 01/16/25 tablet vomiting #10 tabs cephalexin 500 mg capsule 500 mg PO QID #28 caps 01/18/25 triamcinolone acetonide 0.025 % 1 applic topical BID #15 grams 01/18/25 topical ointment dicyclomine 20 mg tablet 20 mg PO BID #6 tabs 01/30/25 diphenhydramine HCl 2 % topical 1 applic topical BID PRN skin 02/11/25 gel (Benadryl) irritation #103 mL ibuprofen 600 mg tablet 600 mg PO Q6H #30 tabs 03/10/25 dicyclomine 20 mg tablet 20 mg PO TID PRN abdominal pain 03/13/25 #20 tabs famotidine 20 mg tablet (Pepcid) 20 mg PO BID 30 days #60 tabs 03/13/25 omeprazole 20 mg capsule,delayed 20 mg PO BID #30 caps 03/13/25 release ondansetron 4 mg disintegrating 4 mg PO Q8H #20 tabs 03/13/25 tablet Allergies Allergy/AdvReac Type Severity Reaction Status Date / Time No Known Allergies Allergy Verified 03/26/25 03:04 Review of Systems Review of Systems Systems Reviewed: All systems reviewed, normal except as documented Past Medical History Past Medical History PSYCHO/SOCIAL: Positive Recreational Drug Use OTHER HISTORY: Positive Chicken Pox Social History SUBSTANCE USE: methamphetamine ED Exam Narrative Physical exam: GEN. APPEARANCE: The patient is alert awake oriented X-3 notably tachycardic and unwilling to cooperate with provider. Has good eye contact. VITALS: All vitals were reviewed and the pulse ox is 98%, which is normal according to my interpretation Patient is unwilling to cooperate, thereby full examination was not performed. Course Quality Measures none Orders Category Date Time Status EKG (ED ONLY) *Do not use* NOW Care 03/26/25 03:55 Active EKG (ED Only) Stat Exams 03/26/25 03:55 Ordered XR chest 2V Stat Exams 03/26/25 03:55 Ordered Vital Signs Vital signs: Vital Signs Temperature 97.9 F 03/26/25 03:18 Pulse Rate 136 H 03/26/25 03:18 Respiratory Rate 19 03/26/25 03:18 Blood Pressure 158/104 H 03/26/25 03:18 Pulse Oximetry (%) 98 03/26/25 03:18 Oxygen Delivery Method Room Air 03/26/25 03:18 Shortness of Breath / Dyspnea MDM Narrative MDM Narrative:: Scribe Attestation: Deanne Reza, am scribing for and in the presence of Dr. Bloom. Provider Notation: Although this document has been carefully reviewed, there may still be some phonetic and other typographical errors. These errors are purely grammatical due to imperfections in the software program and should not be construed in any way to compromise the substance of the patient's medical care during this visit. Patient well-known to the ED with known long-standing methamphetamine abuse presenting with a wide variety of complaints, including suspected oral infection, CP/SOB, of unclear duration. Please see PE findings. Patient is unwilling to cooperate, thereby full examination was not performed. After multiple attempts to convince patient of the need to be evaluated due to excessively high HR, patient continued to refuse and refused to cooperate with all protocols. DPS eventually contacted and patient was removed from premises and taken to local [facility]. Final diagnosis is consistent with chest pain of unknown etiology and methamphetamine abuse. Patient data External records reviewed:: [facility] previous records (Reviewed prior ED records from 03/16/25. Patient was seen for Methamphetamine abuse.) Clinical information provided by:: patient Social determinants that could affect healthcare access:: substance use (Methamphetamine) Patient has the following chronic illnesses:: Recreational Drug Abuse How is presenting disease/condition affected by chronic disease/condition?: exacerbated by Evaluation data The following diagnostics were reviewed and interpreted by me:: other (specify) (N/A) Lab and/or radiology exams considered but not ordered:: None Interpretation Summary: Patient uncooperative Medications / Prescriptions Medications or Prescriptions considered but not ordered:: None Medication administrations:: See above if any Consultations Consultation(s) initiated? (list below): No Diagnosis Shortness of Breath Differential Diagnosis: other (Substance abuse, Atypical Chest Pain, Anxiety Disorder) Most likely diagnosis given after review of the tests above:: Methamphetamine Abuse, Chest pain of unknown etiology Admission Indicated Admission indicated?: not indicated Explain why admission is indicated or not indicated:: Patient uncooperative Admission Request Was there a request for admission?: No Disposition Plan Disposition Plan: other (specify) (Patient removed by DPS) Discharge Plan Plan Patient Disposition: Assisted/Court/Law Prescriptions/Referrals Prescriptions/Med Rec: No Action cetirizine-pseudoephedrine [Zyrtec-D] 5-120 mg tablet extended release 12 hr 1 tab PO BID PRN (Reason: sinus symptoms) Qty: 14 0RF diphenhydramine HCl [Benadryl] 25 mg capsule 25 mg PO Q8H PRN (Reason: allergic symptoms) Qty: 30 0RF ibuprofen 600 mg tablet 600 mg PO QID PRN (Reason: pain) Qty: 20 0RF ciprofloxacin HCl [Cipro] 500 mg tablet 500 mg PO BID Qty: 14 0RF metronidazole 500 mg tablet 500 mg PO BID Qty: 14 0RF dicyclomine 20 mg tablet 20 mg PO BID Qty: 20 0RF hydroxyzine HCl 50 mg tablet 50 mg PO Q6H PRN (Reason: anxiety) Qty: 20 0RF amoxicillin-pot clavulanate 875-125 mg tablet 1 tab PO BID Qty: 14 0RF ibuprofen 600 mg tablet 600 mg PO Q8H PRN (Reason: pain) Qty: 30 0RF acetaminophen 325 mg tablet 650 mg PO TID PRN (Reason: pain) Qty: 30 0RF lidocaine [Lidoderm] 5 % adhesive patch,medicated 2 patch topical QDAY PRN (Reason: pain) Qty: 30 0RF Rx Instructions: leave on most painful area for up to 12 hrs ibuprofen 600 mg tablet 600 mg PO Q8H PRN (Reason: pain) Qty: 14 0RF tizanidine 4 mg tablet 4 mg PO BID PRN (Reason: muscle spasticity) Qty: 20 0RF acetaminophen 500 mg tablet 500 mg PO Q6H PRN (Reason: pain) Qty: 30 0RF hydroxyzine pamoate 25 mg capsule 25 mg PO BID PRN (Reason: anxiety) Qty: 10 0RF albuterol sulfate [Ventolin HFA] 90 mcg/actuation HFA aerosol inhaler 1 inh inhalation Q4H PRN (Reason: shortness of breath or wheezing) Qty: 8.5 0RF amoxicillin-pot clavulanate 875-125 mg tablet 1 tab PO BID Qty: 20 0RF lidocaine HCl [Lidocaine Viscous] 2 % solution 10 ml PO Q4H PRN (Reason: sore throat) Qty: 100 0RF ondansetron 4 mg tablet,disintegrating 4 mg PO Q8H PRN (Reason: nausea and vomiting) Qty: 10 0RF Sudafed PE Head Congestn-Pain 200-10 mg tablet 1 tab PO Q4H PRN (Reason: sinus symptoms) Qty: 20 0RF Benadryl 2 % gel 1 applic topical BID PRN (Reason: skin irritation) Qty: 103 0RF ibuprofen 600 mg tablet 600 mg PO Q6H Qty: 30 0RF omeprazole 20 mg capsule,delayed release(DR/EC) 20 mg PO BID Qty: 30 0RF famotidine [Pepcid] 20 mg tablet 20 mg PO BID 30 Days Qty: 60 0RF ondansetron 4 mg tablet,disintegrating 4 mg PO Q8H Qty: 20 0RF cyclobenzaprine 7.5 mg tablet 7.5 mg PO TID PRN (Reason: muscle spasm) Qty: 30 0RF hydrocodone-acetaminophen 5-325 mg tablet 1 tab PO BID MDD 10 PRN (Reason: pain) Qty: 14 0RF sumatriptan succinate [Imitrex] 25 mg tablet 25 mg PO Q2H PRN (Reason: migraine headache) Qty: 10 0RF Rx Instructions: do not exceed 8 doses per 24 hrs ondansetron 4 mg tablet,disintegrating 4 mg PO Q8H PRN (Reason: nausea and vomiting) Qty: 20 0RF ibuprofen 800 mg tablet 800 mg PO Q8H PRN (Reason: pain) Qty: 20 0RF dicyclomine 20 mg tablet 20 mg PO QID PRN (Reason: abdominal pain) Qty: 30 0RF cephalexin 500 mg capsule 500 mg PO QID Qty: 40 0RF ondansetron 4 mg tablet,disintegrating 4 mg PO Q8H PRN (Reason: nausea and vomiting) Qty: 20 0RF albuterol sulfate [Ventolin HFA] 90 mcg/actuation HFA aerosol inhaler 2 puff inhalation Q6H PRN (Reason: shortness of breath or wheezing) Qty: 8.5 0RF triamcinolone acetonide 0.025 % ointment 1 applic topical BID Qty: 15 0RF cephalexin 500 mg capsule 500 mg PO QID Qty: 28 0RF dicyclomine 20 mg tablet 20 mg PO BID Qty: 6 0RF dicyclomine 20 mg tablet 20 mg PO TID PRN (Reason: abdominal pain) Qty: 20 0RF Referrals: No Primary/Family,Physician [Primary Care Provider] - In 1 week Problem List Clinical Impression: Methamphetamine abuse, Chest pain of unknown etiology Patient/Caregiver Discharge Instructions Print Language: Green[place]ic
== END 2025-03-26 04:33 ==
PROVIDERS: Emergency Provider Emergency Medicine
DX: R07.9 Chest pain, unspecified (principal); F15.10 Other stimulant abuse, uncomplicated
CPT/HCPCS: 80053; 80307; 81001; 83615; 83735; 83880; 84484; 85025; 85610; 85730; 99281

== ENCOUNTER 2025-03-26 22:28 | Emergency (ER) | payer MEDICAID, SELFPAY ==
[2025-03-26 22:29] VITALS: PULSE 106; O2SAT 100; BMI 21.7
[2025-03-26 22:50] VITALS: BP 150/102; PULSE 104; RESP 18; TEMP 36.6; O2SAT 98
--- NOTE | 2025-03-26 22:54 | XR_ITS ---
EXAMINATION: PA chest single view TECHNIQUE: Upright PA chest single view Date and time: March 26, 2025, 1055 hours FINDINGS: Normal heart size Lungs are clear. Osseous structures are intact IMPRESSION: No active disease
[2025-03-26 23:42] LABS: Basophils # (Auto) 0.0 Thou/mm3 (0.0-0.2); Basophils % (Auto) 0 % (0-2.5); Eosinophils # (Auto) 0.0 Thou/mm3 (0.0-0.5); Eosinophils % (Auto) 0 % (0-10); Hematocrit 48.5 % (41.0-53.0); Hemoglobin 16.0 g/dL (13.5-16.0); Immature Granulocytes Auto 0.05 Thou/mm3 (0.00-0.00); Lymphocytes # (Auto) 1.9 Thou/mm3 (1.0-4.8); Lymphocytes % (Auto) 16 % (10-50); Mean Corpuscular HGB Conc 33.0 g/dl (31.0-37.0); Mean Corpuscular Hemoglobin 30.3 pg (25.0-35.0); Mean Corpuscular Volume 92 fL (80-100); Monocytes # (Auto) 1.1 Thou/mm3 (0.0-0.8); Monocytes % (Auto) 9 % (0-12); Neutrophils # (Auto) 8.5 Thou/mm3 (1.8-7.7); Neutrophils % (Auto) 74 % (37-80); Nucleated Red Blood Cell # 0.00 Thou/mm3 (0.00-0.00); Nucleated Red Blood Cell % 0 /100 WBC (0); Platelet Count 382 Thou/mm3 (140-440); RDW Standard Deviation 43.8 fL (35.1-43.9); Red Blood Count 5.28 Miln/mm3 (4.50-5.90); White Blood Count 11.5 Thou/mm3 (3.8-10.6)
[2025-03-26 23:44] LABS: B-Type Natriuretic Peptide < 20 pg/mL (0-100)
[2025-03-26 23:45] LABS: Alanine Aminotransferase 39 U/L (10-49); Albumin, Serum 5.7 gm/dL (3.5-5.0); Albumin/Globulin Ratio 2.2 (1.2-2.2); Alkaline Phosphatase 94 U/L (46-116); Anion Gap 12 (7-16); Aspartate Amino Transferase 32 U/L (0-34); BUN/Creatinine Ratio 15 Ratio (12-20); Bilirubin,Total 0.8 mg/dL (0.3-1.2); Blood Urea Nitrogen 16 mg/dL (9-23); Calcium 10.1 mg/dL (8.3-10.6); Calcium (Corrected) 10.1 mg/dL (8.5-10.1); Carbon Dioxide 27.3 mMol/L (20.0-31.0); Chloride 103 mMol/L (98-107); Creatinine (Component) 1.1 mg/dL (0.6-1.3); Estimated Creatinine Clearance 82.0 mL/min (>60); Globulin 2.6 gm/dL (2.3-3.5); Glucose 100 mg/dL (74-106); Osmolality,Calculated 284 (275-295); Potassium 4.1 mMol/L (3.4-5.1); Sodium 142 mMol/L (136-145); Total Protein 8.3 gm/dL (5.7-8.2); Troponin I < 0.020 ng/mL (0.0-0.045); eGFR > 60 See Note
[2025-03-27 00:05] LABS: D-Dimer < 250 ng/mL (<600)
--- NOTE | 2025-03-27 00:09 | EKG_ITS ---
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
--- NOTE | 2025-03-27 00:11 | PD.EDSOB ---
ED SOB =RME/HPI General Chief Complaint: Shortness of Breath/Dyspnea Stated Complaint: SOB Time Seen by Provider: 03/26/25 22:54 Arrival date/time: 03/26/25 22:28 This is a case of 39-year-old male with history of anxiety and methamphetamine abuse with multiple visit here in the emergency room with different symptoms patient came here today with shortness of breath 2 hours prior to arrival in the emergency room patient states that he has on and off cough for a week no fever no chills patient was here this morning for chest pain were thorough exam was performed and was discharged with chest pain of unknown etiology. Limitations: no limitations Related Data Previous Rx's ?Medication ?Instructions ?Recorded cetirizine 5 mg-pseudoephedrine ER 1 tab PO BID PRN sinus symptoms 08/30/21 120 mg tablet,extended #14 tabs release,12hr (Zyrtec-D) diphenhydramine HCl 25 mg capsule 25 mg PO Q8H PRN allergic symptoms 09/23/22 (Benadryl) #30 caps ibuprofen 600 mg tablet 600 mg PO QID PRN pain #20 tabs 09/23/22 ciprofloxacin HCl 500 mg tablet 500 mg PO BID #14 tabs 11/29/22 (Cipro) dicyclomine 20 mg tablet 20 mg PO BID #20 tabs 11/29/22 metronidazole 500 mg tablet 500 mg PO BID #14 tabs 11/29/22 cyclobenzaprine 7.5 mg tablet 7.5 mg PO TID PRN muscle spasm #30 12/03/22 tabs hydrocodone 5 mg-acetaminophen 325 1 tab PO BID PRN pain #14 tabs 01/16/23 mg tablet hydroxyzine HCl 50 mg tablet 50 mg PO Q6H PRN anxiety #20 tabs 01/18/24 amoxicillin 875 mg-potassium 1 tab PO BID #14 tabs 02/07/24 clavulanate 125 mg tablet acetaminophen 325 mg tablet 650 mg (2 x 325 mg) PO TID PRN 02/11/24 pain #30 tabs ibuprofen 600 mg tablet 600 mg PO Q8H PRN pain #30 tabs 02/11/24 ibuprofen 600 mg tablet 600 mg PO Q8H PRN pain #14 tabs 02/15/24 lidocaine 5 % topical patch 2 patch topical QDAY PRN pain #30 02/15/24 (Lidoderm) ea acetaminophen 500 mg tablet 500 mg PO Q6H PRN pain #30 tabs 09/15/24 tizanidine 4 mg tablet 4 mg PO BID PRN muscle spasticity 09/15/24 #20 tabs sumatriptan succinate 25 mg tablet 25 mg PO Q2H PRN migraine headache 10/08/24 (Imitrex) #10 tabs albuterol sulfate 90 mcg/actuation 1 inh inhalation Q4H PRN shortness 11/06/24 aerosol inhaler (Ventolin HFA) of breath or wheezing #8.5 grams hydroxyzine pamoate 25 mg capsule 25 mg PO BID PRN anxiety #10 caps 11/06/24 ibuprofen 800 mg tablet 800 mg PO Q8H PRN pain #20 tabs 12/21/24 ondansetron 4 mg disintegrating 4 mg PO Q8H PRN nausea and 12/21/24 tablet vomiting #20 tabs dicyclomine 20 mg tablet 20 mg PO QID PRN abdominal pain 12/27/24 #30 tabs cephalexin 500 mg capsule 500 mg PO QID #40 caps 12/28/24 albuterol sulfate 90 mcg/actuation 2 puff inhalation Q6H PRN 01/03/25 aerosol inhaler (Ventolin HFA) shortness of breath or wheezing #8.5 grams ondansetron 4 mg disintegrating 4 mg PO Q8H PRN nausea and 01/03/25 tablet vomiting #20 tabs amoxicillin 875 mg-potassium 1 tab PO BID #20 tabs 01/16/25 clavulanate 125 mg tablet ibuprofen 200 mg-phenylephrine HCl 1 tab PO Q4H PRN sinus symptoms 01/16/25 10 mg tablet (Sudafed PE Head #20 tabs Congestion-Pain) lidocaine HCl 2 % mucosal solution 10 ml PO Q4H PRN sore throat #100 01/16/25 (Lidocaine Viscous) mL ondansetron 4 mg disintegrating 4 mg PO Q8H PRN nausea and 01/16/25 tablet vomiting #10 tabs cephalexin 500 mg capsule 500 mg PO QID #28 caps 01/18/25 triamcinolone acetonide 0.025 % 1 applic topical BID #15 grams 01/18/25 topical ointment dicyclomine 20 mg tablet 20 mg PO BID #6 tabs 01/30/25 diphenhydramine HCl 2 % topical 1 applic topical BID PRN skin 02/11/25 gel (Benadryl) irritation #103 mL ibuprofen 600 mg tablet 600 mg PO Q6H #30 tabs 03/10/25 dicyclomine 20 mg tablet 20 mg PO TID PRN abdominal pain 03/13/25 #20 tabs famotidine 20 mg tablet (Pepcid) 20 mg PO BID 30 days #60 tabs 03/13/25 omeprazole 20 mg capsule,delayed 20 mg PO BID #30 caps 03/13/25 release ondansetron 4 mg disintegrating 4 mg PO Q8H #20 tabs 03/13/25 tablet albuterol sulfate 90 mcg/actuation 2 puff inhalation Q6H PRN 03/27/25 aerosol inhaler (Ventolin HFA) shortness of breath or wheezing #8.5 grams azithromycin 250 mg tablet 250 mg PO QDAY 6 days #6 tabs 03/27/25 prednisone 20 mg tablet See Taper PO QDAY 5 days #5 tabs 03/27/25 Allergies Allergy/AdvReac Type Severity Reaction Status Date / Time No Known Allergies Allergy Verified 03/26/25 22:29 Review of Systems Review of Systems Systems Reviewed: All systems reviewed, normal except as documented Constitutional Constitutional: Reports system reviewed and no additional complaints, except as documented, Reports as per HPI and Denies snoring ENT Ears, Nose, Mouth, and Throat: Reports system reviewed and no additional complaints, except as documented and Reports as per HPI Cardiovascular Cardiovascular: Reports system reviewed and no additional complaints, except as documented, Reports as per HPI, Reports dyspnea and Denies dyspnea on exertion Respiratory Respiratory: Reports system reviewed and no additional complaints, except as documented, Reports as per HPI, Denies chest congestion, Reports cough, Reports dyspnea, Denies dyspnea on exertion, Denies excessive phlegm production, Denies hemoptysis, Denies pain on inspiration, Denies pain with cough, Denies snoring, Denies stridor and Denies wheezing Neurologic Neurologic: Reports system reviewed and no additional complaints, except as documented and Reports as per HPI Allergic/Immunologic Allergic/Immunologic: Denies wheezing Past Medical History Past Medical History NEUROLOGIC: Negative Neurological Disorders or Seizures CARDIAC: Negative Cardiac Disorders or Congestive Heart Failure RESPIRATORY: Negative Chronic Obstructive Pulmonary Disease (COPD) or Asthma GASTROINTESTINAL: Negative Gastrointestinal Disorders GENITOURINARY: Negative Genitourinary Disorders or Renal Disease MUSCULOSKELETAL: Negative Musculoskeletal Disorders ENDOCRINE: Negative Endocrine Disorders, Diabetes Mellitus Type 1 or Diabetes Mellitus Type 2 HEMATOLOGIC: Negative Blood Disorders or Sickle Cell Disease PSYCHO/SOCIAL: Positive Recreational Drug Use OTHER HISTORY: Positive Chicken Pox; Negative Hospitalization, Blood Transfusions, Blood Transfusion Reaction, Anesthesia Reactions or Cancer Social History SMOKING STATUS: Never smoker SUBSTANCE USE: methamphetamine ED Exam General Limitations: Present no limitations General appearance: Present alert, in no apparent distress and other (Patient is awake alert oriented not in distress nontoxic looking well-hydrated well-nourished) Head Head exam: Present atraumatic, normocephalic and normal inspection Eye Eye exam: Present normal appearance, PERRL and EOMI ENT ENT exam: Present normal exam, normal oropharynx, mucous membranes moist and other Neck Neck exam: Present normal inspection, full ROM, trachea midline and other; Absent tenderness, meningismus, lymphadenopathy or thyromegaly Chest Chest inspection: Present normal inspection and symmetric chest wall rise; Absent tenderness Respiratory Respiratory exam: Present normal lung sounds bilaterally and wheezes (Wheezing mild right lower lung field no crackles no rales no retraction no stridor); Absent respiratory distress Cardiovascular Cardiovascular exam: Present regular rate, normal rhythm and normal heart sounds; Absent bradycardia, tachycardia, irregular rhythm, systolic murmur or diastolic murmur Abdominal Exam Abdominal exam: Present soft and normal bowel sounds; Absent distention, tenderness, guarding, rebound, rigidity, diminished bowel sounds, hyperactive bowel sounds, hypoactive bowel sounds or organomegaly Extremities Exam Extremities exam: Present normal inspection and full ROM Back Exam Back exam: Present normal inspection and full ROM Neurological Exam Neurological exam: Present alert, oriented X3, CN II-XII intact, normal gait and reflexes normal; Absent motor sensory deficit Psychiatric Psychiatric exam: Present normal affect and normal mood Skin Skin exam: Present warm, dry, intact, normal color and other (Excellent skin turgor) Course Quality Measures none Orders Category Date Time Status EKG (ED ONLY) *Do not use* NOW Care 03/27/25 00:09 Active EKG (ED Only) Stat Exams 03/27/25 00:09 Ordered XR chest 1V Stat Exams 03/26/25 22:54 Completed BNP [B-Type Natriuretic Peptide] Stat Lab 03/26/25 23:04 Completed CBC Stat Lab 03/26/25 23:04 Completed Comprehensive Metabolic Panel Stat Lab 03/26/25 23:04 Completed D-Dimer Stat Lab 03/26/25 23:04 Completed Troponin I Stat Lab 03/26/25 23:04 Completed Vital Signs Vital signs: Vital Signs Temperature 98 F 03/26/25 22:50 Pulse Rate 104 H 03/26/25 22:50 Respiratory Rate 18 03/26/25 22:50 Blood Pressure 150/102 H 03/26/25 22:50 Pulse Oximetry (%) 98 03/26/25 22:50 Oxygen Delivery Method Room Air 03/26/25 22:50 Oxygen saturation is 98% in normal Shortness of Breath / Dyspnea MDM Narrative MDM Narrative:: This is a case of 39-year-old male with history of anxiety and methamphetamine abuse with multiple visit here in the emergency room with different symptoms patient came here today with shortness of breath 2 hours prior to arrival in the emergency room patient states that he has on and off cough for a week no fever no chills patient was here this morning for chest pain were thorough exam was performed and was discharged with chest pain of unknown etiology. Physical examination patient is awake alert oriented not in distress nontoxic looking well-hydrated well-nourished excellent skin turgor vital signs stable BP noted to be 151/101 patient was already treated with hypertension from the previous visit not tachycardic not tachypneic afebrile and nonhypoxic lungs sound is mild wheezing on the right lower lung field no crackles no rales no retraction no stridor HEENT exam is normal and unremarkable heart normal rate regular rhythm no murmur no edema the rest of the physical examination and neurological exam is normal and unremarkable blood test showed no leukocytosis no anemia kidney and liver function is normal no electrolyte imbalance EKG normal sinus rhythm troponin is negative D-dimer is normal BNP is normal chest x-ray is also normal based on my physical examination and history patient symptoms suggestive of acute bronchitis patient was discharged with azithromycin Ventolin inhaler patient was advised to see his primary care physician for further treatment of his uncontrolled hypertension at the time of exam patient BP noted improved 135/85 patient shortness of breath was resolved without medication patient will follow-up with PCP for reevaluation patient condition improved and resolved Patient was discharged with comfortable condition walking with stable gait. Patient verbalized no further complains explained diagnosis and answered patient question. Patient is comfortable with the proposed management plan including the need to follow up with his/her primary care physician and any specialist if applicable Discussed patient for any urgent condition or worsening sx, He/She needed to go to emergency room immediately or call 911. Patient acknowledge the responsibility to follow up as instructed and to monitor her/his symptoms. For any persistence of the symptoms for more than 3-5 days return precaution advised. Discussed the result of the test and was given printed discharge instruction Patient data External records reviewed:: [facility] previous records Clinical information provided by:: patient Social determinants that could affect healthcare access:: none Patient has the following chronic illnesses:: None How is presenting disease/condition affected by chronic disease/condition?: no chronic disease Evaluation data The following diagnostics were reviewed and interpreted by me:: lab results, radiology exam(s) and EKG tracing(s) Lab and/or radiology exams considered but not ordered:: Reviewed Interpretation Summary: Reviewed Medications / Prescriptions Medications or Prescriptions considered but not ordered:: Given Medication administrations:: Given Consultations Consultation(s) initiated? (list below): No Diagnosis Shortness of Breath Differential Diagnosis: congestive heart failure, community acquired pneumonia, asthma with exacerbation and other (Acute bronchitis) Most likely diagnosis given after review of the tests above:: Acute bronchitis Admission Indicated Admission indicated?: not indicated Explain why admission is indicated or not indicated:: Not indicated Admission Request Was there a request for admission?: No Admission Attestation Admission request attestation: Not indicated Disposition Plan Disposition Plan: Discharge Discharge Attestation Discharge Attestation: The patient and all family members were given an opportunity to ask questions and understood the discharge instructions. Discharge instructions specifically effects, indications for sooner follow up or return to the emergency department, and the expected course of current diagnosis. Patient condition: Stable Discharge Plan Plan Patient Disposition: HOME (Self Care) Patient condition on transfer: Stable Prescriptions/Referrals Prescriptions/Med Rec: New azithromycin 250 mg tablet 250 mg PO QDAY 6 Days Qty: 6 0RF Rx Instructions: start on day 2 of therapy prednisone 20 mg tablet See Taper PO QDAY 5 Days Qty: 5 0RF Taper: Prednisone Taper 20 mg DAILY for 2 Days and 0 Hour 10 mg DAILY for 2 Days and 0 Hour 5 mg DAILY for 7 Days and 0 Hour albuterol sulfate [Ventolin HFA] 90 mcg/actuation HFA aerosol inhaler 2 puff inhalation Q6H PRN (Reason: shortness of breath or wheezing) Qty: 8.5 0RF No Action cetirizine-pseudoephedrine [Zyrtec-D] 5-120 mg tablet extended release 12 hr 1 tab PO BID PRN (Reason: sinus symptoms) Qty: 14 0RF diphenhydramine HCl [Benadryl] 25 mg capsule 25 mg PO Q8H PRN (Reason: allergic symptoms) Qty: 30 0RF ibuprofen 600 mg tablet 600 mg PO QID PRN (Reason: pain) Qty: 20 0RF ciprofloxacin HCl [Cipro] 500 mg tablet 500 mg PO BID Qty: 14 0RF metronidazole 500 mg tablet 500 mg PO BID Qty: 14 0RF dicyclomine 20 mg tablet 20 mg PO BID Qty: 20 0RF hydroxyzine HCl 50 mg tablet 50 mg PO Q6H PRN (Reason: anxiety) Qty: 20 0RF amoxicillin-pot clavulanate 875-125 mg tablet 1 tab PO BID Qty: 14 0RF ibuprofen 600 mg tablet 600 mg PO Q8H PRN (Reason: pain) Qty: 30 0RF acetaminophen 325 mg tablet 650 mg PO TID PRN (Reason: pain) Qty: 30 0RF lidocaine [Lidoderm] 5 % adhesive patch,medicated 2 patch topical QDAY PRN (Reason: pain) Qty: 30 0RF Rx Instructions: leave on most painful area for up to 12 hrs ibuprofen 600 mg tablet 600 mg PO Q8H PRN (Reason: pain) Qty: 14 0RF tizanidine 4 mg tablet 4 mg PO BID PRN (Reason: muscle spasticity) Qty: 20 0RF acetaminophen 500 mg tablet 500 mg PO Q6H PRN (Reason: pain) Qty: 30 0RF hydroxyzine pamoate 25 mg capsule 25 mg PO BID PRN (Reason: anxiety) Qty: 10 0RF albuterol sulfate [Ventolin HFA] 90 mcg/actuation HFA aerosol inhaler 1 inh inhalation Q4H PRN (Reason: shortness of breath or wheezing) Qty: 8.5 0RF amoxicillin-pot clavulanate 875-125 mg tablet 1 tab PO BID Qty: 20 0RF lidocaine HCl [Lidocaine Viscous] 2 % solution 10 ml PO Q4H PRN (Reason: sore throat) Qty: 100 0RF ondansetron 4 mg tablet,disintegrating 4 mg PO Q8H PRN (Reason: nausea and vomiting) Qty: 10 0RF Sudafed PE Head Congestn-Pain 200-10 mg tablet 1 tab PO Q4H PRN (Reason: sinus symptoms) Qty: 20 0RF Benadryl 2 % gel 1 applic topical BID PRN (Reason: skin irritation) Qty: 103 0RF ibuprofen 600 mg tablet 600 mg PO Q6H Qty: 30 0RF omeprazole 20 mg capsule,delayed release(DR/EC) 20 mg PO BID Qty: 30 0RF famotidine [Pepcid] 20 mg tablet 20 mg PO BID 30 Days Qty: 60 0RF ondansetron 4 mg tablet,disintegrating 4 mg PO Q8H Qty: 20 0RF cyclobenzaprine 7.5 mg tablet 7.5 mg PO TID PRN (Reason: muscle spasm) Qty: 30 0RF hydrocodone-acetaminophen 5-325 mg tablet 1 tab PO BID MDD 10 PRN (Reason: pain) Qty: 14 0RF sumatriptan succinate [Imitrex] 25 mg tablet 25 mg PO Q2H PRN (Reason: migraine headache) Qty: 10 0RF Rx Instructions: do not exceed 8 doses per 24 hrs ondansetron 4 mg tablet,disintegrating 4 mg PO Q8H PRN (Reason: nausea and vomiting) Qty: 20 0RF ibuprofen 800 mg tablet 800 mg PO Q8H PRN (Reason: pain) Qty: 20 0RF dicyclomine 20 mg tablet 20 mg PO QID PRN (Reason: abdominal pain) Qty: 30 0RF cephalexin 500 mg capsule 500 mg PO QID Qty: 40 0RF ondansetron 4 mg tablet,disintegrating 4 mg PO Q8H PRN (Reason: nausea and vomiting) Qty: 20 0RF albuterol sulfate [Ventolin HFA] 90 mcg/actuation HFA aerosol inhaler 2 puff inhalation Q6H PRN (Reason: shortness of breath or wheezing) Qty: 8.5 0RF triamcinolone acetonide 0.025 % ointment 1 applic topical BID Qty: 15 0RF cephalexin 500 mg capsule 500 mg PO QID Qty: 28 0RF dicyclomine 20 mg tablet 20 mg PO BID Qty: 6 0RF dicyclomine 20 mg tablet 20 mg PO TID PRN (Reason: abdominal pain) Qty: 20 0RF Referrals: No Primary/Family,Physician [Primary Care Provider] - In 1 week Problem List Clinical Impression: Shortness of breath, Acute bronchitis, Hypertension Patient/Caregiver Discharge Instructions Education Materials: Acute Bronchitis, ED Shortness of Breath (Dyspnea), ED Hypertension, Established Additional Instructions: Follow-up with your primary care physician in 2 days for reevaluation and to continue to monitor your blood pressure and to review your medication for hypertension recurrence persistent worsening symptoms or any emergent concern call 911 or go to the nearest emergency room take your medication as directed finish the course of antibiotic keep hydrated check your blood pressure twice a day and return to the emergency room if your blood pressure greater than 160/100 or become symtomartic Print Language: [place] Stand Alone Forms: [employer] Award Info., Patient Portal Info Letter PA/HEAD OF INSIGHT Supervising Physician PA/HEAD OF INSIGHT Supervising Physician: Dr. Francisco Burgos
== END 2025-03-27 00:41 | disposition home or self-care (01) ==
PROVIDERS: Nurse Practitioner Family; Emergency Provider Emergency Medicine
DX: J20.9 Acute bronchitis, unspecified (principal); I10 Essential (primary) hypertension; Z79.899 Other long term (current) drug therapy
CPT/HCPCS: 36415; 71045; 80053; 83880; 84484; 85025; 85379; 99283

== ENCOUNTER 2025-03-27 08:40 | Emergency (ER) | payer MEDICAID, SELFPAY ==
[2025-03-27 08:47] VITALS: PULSE 98; RESP 18; O2SAT 97
[2025-03-27 09:09] VITALS: BP 144/90; PULSE 103; RESP 19; TEMP 36.7; O2SAT 100; BMI 21.7
--- NOTE | 2025-03-27 09:44 | PD.EDBACK ---
ED Back Injury Pain RME/HPI General Chief Complaint: Back Pain/Injury Stated Complaint: BACK PAIN Time Seen by Provider: 03/27/25 08:54 Arrival date/time: 03/27/25 08:40 This is a 39-year-old male with history of anxiety and methamphetamine abuse with multiple visit here in the emergency room. Patient was discharged earlier this morning and diagnosed with bronchitis. Patient was prescribed steroids wit a Z-Los. Patient states he is not able to get to the pharmacy at this time but can go later. Patient wanted his medications. Patient has no new symptoms however yesterday was complaining of shortness of breath and on and off cough for a week no fever no chills. Related Data Previous Rx's ?Medication ?Instructions ?Recorded cetirizine 5 mg-pseudoephedrine ER 1 tab PO BID PRN sinus symptoms 08/30/21 120 mg tablet,extended #14 tabs release,12hr (Zyrtec-D) diphenhydramine HCl 25 mg capsule 25 mg PO Q8H PRN allergic symptoms 09/23/22 (Benadryl) #30 caps ibuprofen 600 mg tablet 600 mg PO QID PRN pain #20 tabs 09/23/22 ciprofloxacin HCl 500 mg tablet 500 mg PO BID #14 tabs 11/29/22 (Cipro) dicyclomine 20 mg tablet 20 mg PO BID #20 tabs 11/29/22 metronidazole 500 mg tablet 500 mg PO BID #14 tabs 11/29/22 cyclobenzaprine 7.5 mg tablet 7.5 mg PO TID PRN muscle spasm #30 12/03/22 tabs hydrocodone 5 mg-acetaminophen 325 1 tab PO BID PRN pain #14 tabs 01/16/23 mg tablet hydroxyzine HCl 50 mg tablet 50 mg PO Q6H PRN anxiety #20 tabs 01/18/24 amoxicillin 875 mg-potassium 1 tab PO BID #14 tabs 02/07/24 clavulanate 125 mg tablet acetaminophen 325 mg tablet 650 mg (2 x 325 mg) PO TID PRN 02/11/24 pain #30 tabs ibuprofen 600 mg tablet 600 mg PO Q8H PRN pain #30 tabs 02/11/24 ibuprofen 600 mg tablet 600 mg PO Q8H PRN pain #14 tabs 02/15/24 lidocaine 5 % topical patch 2 patch topical QDAY PRN pain #30 02/15/24 (Lidoderm) ea acetaminophen 500 mg tablet 500 mg PO Q6H PRN pain #30 tabs 09/15/24 tizanidine 4 mg tablet 4 mg PO BID PRN muscle spasticity 09/15/24 #20 tabs sumatriptan succinate 25 mg tablet 25 mg PO Q2H PRN migraine headache 10/08/24 (Imitrex) #10 tabs albuterol sulfate 90 mcg/actuation 1 inh inhalation Q4H PRN shortness 11/06/24 aerosol inhaler (Ventolin HFA) of breath or wheezing #8.5 grams hydroxyzine pamoate 25 mg capsule 25 mg PO BID PRN anxiety #10 caps 11/06/24 ibuprofen 800 mg tablet 800 mg PO Q8H PRN pain #20 tabs 12/21/24 ondansetron 4 mg disintegrating 4 mg PO Q8H PRN nausea and 12/21/24 tablet vomiting #20 tabs dicyclomine 20 mg tablet 20 mg PO QID PRN abdominal pain 12/27/24 #30 tabs cephalexin 500 mg capsule 500 mg PO QID #40 caps 12/28/24 albuterol sulfate 90 mcg/actuation 2 puff inhalation Q6H PRN 01/03/25 aerosol inhaler (Ventolin HFA) shortness of breath or wheezing #8.5 grams ondansetron 4 mg disintegrating 4 mg PO Q8H PRN nausea and 01/03/25 tablet vomiting #20 tabs amoxicillin 875 mg-potassium 1 tab PO BID #20 tabs 01/16/25 clavulanate 125 mg tablet ibuprofen 200 mg-phenylephrine HCl 1 tab PO Q4H PRN sinus symptoms 01/16/25 10 mg tablet (Sudafed PE Head #20 tabs Congestion-Pain) lidocaine HCl 2 % mucosal solution 10 ml PO Q4H PRN sore throat #100 01/16/25 (Lidocaine Viscous) mL ondansetron 4 mg disintegrating 4 mg PO Q8H PRN nausea and 01/16/25 tablet vomiting #10 tabs cephalexin 500 mg capsule 500 mg PO QID #28 caps 01/18/25 triamcinolone acetonide 0.025 % 1 applic topical BID #15 grams 01/18/25 topical ointment dicyclomine 20 mg tablet 20 mg PO BID #6 tabs 01/30/25 diphenhydramine HCl 2 % topical 1 applic topical BID PRN skin 02/11/25 gel (Benadryl) irritation #103 mL ibuprofen 600 mg tablet 600 mg PO Q6H #30 tabs 03/10/25 dicyclomine 20 mg tablet 20 mg PO TID PRN abdominal pain 03/13/25 #20 tabs famotidine 20 mg tablet (Pepcid) 20 mg PO BID 30 days #60 tabs 03/13/25 omeprazole 20 mg capsule,delayed 20 mg PO BID #30 caps 03/13/25 release ondansetron 4 mg disintegrating 4 mg PO Q8H #20 tabs 03/13/25 tablet albuterol sulfate 90 mcg/actuation 2 puff inhalation Q6H PRN 03/27/25 aerosol inhaler (Ventolin HFA) shortness of breath or wheezing #8.5 grams Allergies Allergy/AdvReac Type Severity Reaction Status Date / Time No Known Allergies Allergy Verified 03/28/25 03:45 Review of Systems Review of Systems Systems Reviewed: All systems reviewed, normal except as documented Past Medical History Past Medical History NEUROLOGIC: Negative Neurological Disorders or Seizures CARDIAC: Negative Cardiac Disorders or Congestive Heart Failure RESPIRATORY: Negative Chronic Obstructive Pulmonary Disease (COPD) or Asthma GASTROINTESTINAL: Negative Gastrointestinal Disorders GENITOURINARY: Negative Genitourinary Disorders or Renal Disease MUSCULOSKELETAL: Negative Musculoskeletal Disorders ENDOCRINE: Negative Endocrine Disorders, Diabetes Mellitus Type 1 or Diabetes Mellitus Type 2 HEMATOLOGIC: Negative Blood Disorders or Sickle Cell Disease PSYCHO/SOCIAL: Positive Recreational Drug Use OTHER HISTORY: Positive Chicken Pox; Negative Hospitalization, Blood Transfusions, Blood Transfusion Reaction, Anesthesia Reactions or Cancer Social History SMOKING STATUS: Never smoker SUBSTANCE USE: methamphetamine ED Exam Narrative Physical exam: VITAL SIGNS: Reviewed. GENERAL APPEARANCE: Alert and interactive, follows commands, no acute distress, HEAD AND FACE: Non-traumatic. ENT: PERRL, conjuctiva pink and clear, eyelid no trauma, Mucous membrane moist. NECK: Supple, nontender, no nuchal rigidity. CHEST: No tenderness, no crepitus, no paradoxical movement, no retractions. LUNGS: Clear, well ventilated, symmetric, no rales, no wheezing, no rhonchi, no stridor, good breath sounds bilaterally. HEART: Regular rate, regular rhythm, no murmur, no gallops. ABDOMEN: Soft, nondistended, no guarding, nontender, no rebound, no masses, NEUROLOGICAL: Gross motor function intact sensory function intact, Appropriate for age. MUSCULOSKELETAL: low back nontender, full range of motion. EXTREMITIES: No redness no swelling no skin breakdown on bilateral foot and leg. Distal neurovascular status intact bilateral foot SKIN: Color pink, dry, no rash Course Quality Measures none Orders Category Date Time Status Azithromycin Po [Zithromax PO] Med 03/27/25 09:45 Discontinued 500 mg PO X1 ONE predniSONE Med 03/27/25 09:45 Discontinued 20 mg PO X1 ONE Vital Signs Vital signs: Vital Signs Temperature 98.1 F 03/27/25 09:09 Pulse Rate 103 H 03/27/25 09:09 Respiratory Rate 19 03/27/25 09:09 Blood Pressure 144/90 H 03/27/25 09:09 Pulse Oximetry (%) 100 03/27/25 09:09 Back Pain / Injury MDM Narrative MDM Narrative:: I spoke to patient at length. Patient is assessment unremarkable. Patient insist on getting the medications he was prescribed yesterday. I will give him a dose of prednisone and the first dose of the Z-Los. Patient told to make sure he picks up the rest of his medications. Patient verbalized understanding. Patient told to come back to the emergency room if symptoms change or worsen.And he will need to follow-up with his primary provider in 1 to 2 days. Dragon dictation: Although this document has been carefully reviewed, there may still be some phonetic and other typographical errors. These errors are purely grammatical due to imperfections in the software program and should not be construed in any way to compromise the substance of the patient's medical care during this visit. Patient data External records reviewed:: [facility] previous records Clinical information provided by:: patient Social determinants that could affect healthcare access:: none Patient has the following chronic illnesses:: none How is presenting disease/condition affected by chronic disease/condition?: no chronic disease Evaluation data The following diagnostics were reviewed and interpreted by me:: lab results Lab and/or radiology exams considered but not ordered:: none Interpretation Summary: see note Medications / Prescriptions Medications or Prescriptions considered but not ordered:: none Medication administrations:: Medication Administration History Discontinued Medications Azithromycin (Azithromycin 250 Mg Tablet) 500 mg PO X1 ONE Stop: 03/27/25 09:46 Last Admin: 03/27/25 10:00 Dose: 500 mg Documented By: OSBALDO Prednisone (Prednisone 20 Mg Tablet) 20 mg PO X1 ONE Stop: 03/27/25 09:46 Last Admin: 03/27/25 10:00 Dose: 20 mg Documented By: OSBALDO see [facility] Consultations Consultation(s) initiated? (list below): No Diagnosis Most likely diagnosis given after review of the tests above:: uri Admission Indicated Admission indicated?: not indicated Admission Request Was there a request for admission?: No Disposition Plan Disposition Plan: Discharge Discharge Attestation Discharge Attestation: The patient and all family members were given an opportunity to ask questions and understood the discharge instructions. Discharge instructions specifically effects, indications for sooner follow up or return to the emergency department, and the expected course of current diagnosis. Patient condition: Stable Discharge Plan Plan Patient Disposition: HOME (Self Care) Patient condition on transfer: Stable Prescriptions/Referrals Prescriptions/Med Rec: No Action cetirizine-pseudoephedrine [Zyrtec-D] 5-120 mg tablet extended release 12 hr 1 tab PO BID PRN (Reason: sinus symptoms) Qty: 14 0RF diphenhydramine HCl [Benadryl] 25 mg capsule 25 mg PO Q8H PRN (Reason: allergic symptoms) Qty: 30 0RF ibuprofen 600 mg tablet 600 mg PO QID PRN (Reason: pain) Qty: 20 0RF ciprofloxacin HCl [Cipro] 500 mg tablet 500 mg PO BID Qty: 14 0RF metronidazole 500 mg tablet 500 mg PO BID Qty: 14 0RF dicyclomine 20 mg tablet 20 mg PO BID Qty: 20 0RF hydroxyzine HCl 50 mg tablet 50 mg PO Q6H PRN (Reason: anxiety) Qty: 20 0RF amoxicillin-pot clavulanate 875-125 mg tablet 1 tab PO BID Qty: 14 0RF ibuprofen 600 mg tablet 600 mg PO Q8H PRN (Reason: pain) Qty: 30 0RF acetaminophen 325 mg tablet 650 mg PO TID PRN (Reason: pain) Qty: 30 0RF lidocaine [Lidoderm] 5 % adhesive patch,medicated 2 patch topical QDAY PRN (Reason: pain) Qty: 30 0RF Rx Instructions: leave on most painful area for up to 12 hrs ibuprofen 600 mg tablet 600 mg PO Q8H PRN (Reason: pain) Qty: 14 0RF tizanidine 4 mg tablet 4 mg PO BID PRN (Reason: muscle spasticity) Qty: 20 0RF acetaminophen 500 mg tablet 500 mg PO Q6H PRN (Reason: pain) Qty: 30 0RF hydroxyzine pamoate 25 mg capsule 25 mg PO BID PRN (Reason: anxiety) Qty: 10 0RF albuterol sulfate [Ventolin HFA] 90 mcg/actuation HFA aerosol inhaler 1 inh inhalation Q4H PRN (Reason: shortness of breath or wheezing) Qty: 8.5 0RF amoxicillin-pot clavulanate 875-125 mg tablet 1 tab PO BID Qty: 20 0RF lidocaine HCl [Lidocaine Viscous] 2 % solution 10 ml PO Q4H PRN (Reason: sore throat) Qty: 100 0RF ondansetron 4 mg tablet,disintegrating 4 mg PO Q8H PRN (Reason: nausea and vomiting) Qty: 10 0RF Sudafed PE Head Congestn-Pain 200-10 mg tablet 1 tab PO Q4H PRN (Reason: sinus symptoms) Qty: 20 0RF Benadryl 2 % gel 1 applic topical BID PRN (Reason: skin irritation) Qty: 103 0RF ibuprofen 600 mg tablet 600 mg PO Q6H Qty: 30 0RF omeprazole 20 mg capsule,delayed release(DR/EC) 20 mg PO BID Qty: 30 0RF famotidine [Pepcid] 20 mg tablet 20 mg PO BID 30 Days Qty: 60 0RF ondansetron 4 mg tablet,disintegrating 4 mg PO Q8H Qty: 20 0RF albuterol sulfate [Ventolin HFA] 90 mcg/actuation HFA aerosol inhaler 2 puff inhalation Q6H PRN (Reason: shortness of breath or wheezing) Qty: 8.5 0RF cyclobenzaprine 7.5 mg tablet 7.5 mg PO TID PRN (Reason: muscle spasm) Qty: 30 0RF hydrocodone-acetaminophen 5-325 mg tablet 1 tab PO BID MDD 10 PRN (Reason: pain) Qty: 14 0RF sumatriptan succinate [Imitrex] 25 mg tablet 25 mg PO Q2H PRN (Reason: migraine headache) Qty: 10 0RF Rx Instructions: do not exceed 8 doses per 24 hrs ondansetron 4 mg tablet,disintegrating 4 mg PO Q8H PRN (Reason: nausea and vomiting) Qty: 20 0RF ibuprofen 800 mg tablet 800 mg PO Q8H PRN (Reason: pain) Qty: 20 0RF dicyclomine 20 mg tablet 20 mg PO QID PRN (Reason: abdominal pain) Qty: 30 0RF cephalexin 500 mg capsule 500 mg PO QID Qty: 40 0RF ondansetron 4 mg tablet,disintegrating 4 mg PO Q8H PRN (Reason: nausea and vomiting) Qty: 20 0RF albuterol sulfate [Ventolin HFA] 90 mcg/actuation HFA aerosol inhaler 2 puff inhalation Q6H PRN (Reason: shortness of breath or wheezing) Qty: 8.5 0RF triamcinolone acetonide 0.025 % ointment 1 applic topical BID Qty: 15 0RF cephalexin 500 mg capsule 500 mg PO QID Qty: 28 0RF dicyclomine 20 mg tablet 20 mg PO BID Qty: 6 0RF dicyclomine 20 mg tablet 20 mg PO TID PRN (Reason: abdominal pain) Qty: 20 0RF Referrals: Michael Rudolph MD [Primary Care Provider, Family Practice] - In 1 week Problem List Clinical Impression: URI (upper respiratory infection) Patient/Caregiver Discharge Instructions Discharge Activity: activity as tolerated Education Materials: ED URI, Viral, No Abx (Adult) Additional Instructions: Follow up with primary provider in 1-2 days. Come back to ED if symptoms change or worsen Print Language: [place] Stand Alone Forms: Selin Award Info., Patient Portal Info Letter PA/CHIEF LEARNING OFFICER Supervising Physician PA/CHIEF LEARNING OFFICER Supervising Physician: mrace
[2025-03-27] MEDS: AZITHROMYCIN 250 MG TABLET 500 MG PO (10:00)
[2025-03-27 10:06] VITALS: BP 142/82; PULSE 90; RESP 16; TEMP 36.7; O2SAT 100
== END 2025-03-27 10:07 | disposition home or self-care (01) ==
PROVIDERS: Emergency Provider Emergency Medicine; PCP Family Medicine
DX: J40 Bronchitis, not specified as acute or chronic (principal); J06.9 Acute upper respiratory infection, unspecified
CPT/HCPCS: 99281; J7512; A9270

== ENCOUNTER 2025-03-27 10:31 | Emergency (ER) | payer MEDICAID, SELFPAY ==
[2025-03-27 10:44] VITALS: BP 150/80; PULSE 102; RESP 18; TEMP 36.4; O2SAT 99; BMI 21.7
--- NOTE | 2025-03-27 11:07 | PC.NURSE ---
pt decided he was not going to be seen and that he was just going to the the pharmacy and pick pulling machine tender his meds, informed him to let the triage nurse know his plan, this underwriter mortgage loan told the provider and triage nurse as well
== END 2025-03-27 11:10 | disposition left against medical advice (07) ==
PROVIDERS: Emergency Provider Emergency Medicine; PCP Family Medicine
DX: Z53.21 Procedure and treatment not carried out due to patient leaving prior to being seen by health care provider (principal)
CPT/HCPCS: 99281

== ENCOUNTER 2025-03-28 03:40 | Emergency (ER) | payer MEDICAID, SELFPAY ==
[2025-03-28 03:46] VITALS: PULSE 88; RESP 18; O2SAT 99; BMI 22.7
[2025-03-28 03:56] VITALS: BP 142/94; PULSE 93; RESP 18; TEMP 37.2; O2SAT 100
[2025-03-28] MEDS: DEXAMETHASONE SOD PHOS INJ 10 MG/ML VIAL IM (04:57)
[2025-03-28] MEDS: ALBUTEROL/IPRATROPIUM (Duoneb) RT SOL 3 ML NEBU INH (04:57)
[2025-03-28 04:58] VITALS: PULSE 75; RESP 18; O2SAT 99
--- NOTE | 2025-03-28 05:23 | PD.EDURI ---
Upper Respiratory Inf. RME/HPI General Chief Complaint: Weakness Stated Complaint: WEAKNESS Time Seen by Provider: 03/28/25 04:00 Arrival date/time: 03/28/25 03:40 This is a case of 39-year-old male with history of anxiety with multiple visits here in the emergency room came in in the emergency room due to cough on and off with mild shortness of breath no chest pain but with mild generalized weakness patient was seen here yesterday morning and was treated for upper respiratory tract infection I saw also this patient yesterday night and was treated for acute bronchitis patient was prescribed with azithromycin Ventolin inhaler and steroid no other symptoms noted Limitations: no limitations Related Data Previous Rx's ?Medication ?Instructions ?Recorded cetirizine 5 mg-pseudoephedrine ER 1 tab PO BID PRN sinus symptoms 08/30/21 120 mg tablet,extended #14 tabs release,12hr (Zyrtec-D) diphenhydramine HCl 25 mg capsule 25 mg PO Q8H PRN allergic symptoms 09/23/22 (Benadryl) #30 caps ibuprofen 600 mg tablet 600 mg PO QID PRN pain #20 tabs 09/23/22 ciprofloxacin HCl 500 mg tablet 500 mg PO BID #14 tabs 11/29/22 (Cipro) dicyclomine 20 mg tablet 20 mg PO BID #20 tabs 11/29/22 metronidazole 500 mg tablet 500 mg PO BID #14 tabs 11/29/22 cyclobenzaprine 7.5 mg tablet 7.5 mg PO TID PRN muscle spasm #30 12/03/22 tabs hydrocodone 5 mg-acetaminophen 325 1 tab PO BID PRN pain #14 tabs 01/16/23 mg tablet hydroxyzine HCl 50 mg tablet 50 mg PO Q6H PRN anxiety #20 tabs 01/18/24 amoxicillin 875 mg-potassium 1 tab PO BID #14 tabs 02/07/24 clavulanate 125 mg tablet acetaminophen 325 mg tablet 650 mg (2 x 325 mg) PO TID PRN 02/11/24 pain #30 tabs ibuprofen 600 mg tablet 600 mg PO Q8H PRN pain #30 tabs 02/11/24 ibuprofen 600 mg tablet 600 mg PO Q8H PRN pain #14 tabs 02/15/24 lidocaine 5 % topical patch 2 patch topical QDAY PRN pain #30 02/15/24 (Lidoderm) ea acetaminophen 500 mg tablet 500 mg PO Q6H PRN pain #30 tabs 09/15/24 tizanidine 4 mg tablet 4 mg PO BID PRN muscle spasticity 09/15/24 #20 tabs sumatriptan succinate 25 mg tablet 25 mg PO Q2H PRN migraine headache 10/08/24 (Imitrex) #10 tabs albuterol sulfate 90 mcg/actuation 1 inh inhalation Q4H PRN shortness 11/06/24 aerosol inhaler (Ventolin HFA) of breath or wheezing #8.5 grams hydroxyzine pamoate 25 mg capsule 25 mg PO BID PRN anxiety #10 caps 11/06/24 ibuprofen 800 mg tablet 800 mg PO Q8H PRN pain #20 tabs 12/21/24 ondansetron 4 mg disintegrating 4 mg PO Q8H PRN nausea and 12/21/24 tablet vomiting #20 tabs dicyclomine 20 mg tablet 20 mg PO QID PRN abdominal pain 12/27/24 #30 tabs cephalexin 500 mg capsule 500 mg PO QID #40 caps 12/28/24 albuterol sulfate 90 mcg/actuation 2 puff inhalation Q6H PRN 01/03/25 aerosol inhaler (Ventolin HFA) shortness of breath or wheezing #8.5 grams ondansetron 4 mg disintegrating 4 mg PO Q8H PRN nausea and 01/03/25 tablet vomiting #20 tabs amoxicillin 875 mg-potassium 1 tab PO BID #20 tabs 01/16/25 clavulanate 125 mg tablet ibuprofen 200 mg-phenylephrine HCl 1 tab PO Q4H PRN sinus symptoms 01/16/25 10 mg tablet (Sudafed PE Head #20 tabs Congestion-Pain) lidocaine HCl 2 % mucosal solution 10 ml PO Q4H PRN sore throat #100 01/16/25 (Lidocaine Viscous) mL ondansetron 4 mg disintegrating 4 mg PO Q8H PRN nausea and 01/16/25 tablet vomiting #10 tabs cephalexin 500 mg capsule 500 mg PO QID #28 caps 01/18/25 triamcinolone acetonide 0.025 % 1 applic topical BID #15 grams 01/18/25 topical ointment dicyclomine 20 mg tablet 20 mg PO BID #6 tabs 01/30/25 diphenhydramine HCl 2 % topical 1 applic topical BID PRN skin 02/11/25 gel (Benadryl) irritation #103 mL ibuprofen 600 mg tablet 600 mg PO Q6H #30 tabs 03/10/25 dicyclomine 20 mg tablet 20 mg PO TID PRN abdominal pain 03/13/25 #20 tabs famotidine 20 mg tablet (Pepcid) 20 mg PO BID 30 days #60 tabs 03/13/25 omeprazole 20 mg capsule,delayed 20 mg PO BID #30 caps 03/13/25 release ondansetron 4 mg disintegrating 4 mg PO Q8H #20 tabs 03/13/25 tablet albuterol sulfate 90 mcg/actuation 2 puff inhalation Q6H PRN 03/27/25 aerosol inhaler (Ventolin HFA) shortness of breath or wheezing #8.5 grams azithromycin 250 mg tablet 250 mg PO QDAY 6 days #6 tabs 03/27/25 prednisone 20 mg tablet See Taper PO QDAY 5 days #5 tabs 03/27/25 Allergies Allergy/AdvReac Type Severity Reaction Status Date / Time No Known Allergies Allergy Verified 03/28/25 03:45 Review of Systems Review of Systems Systems Reviewed: All systems reviewed, normal except as documented Constitutional Constitutional: Reports system reviewed and no additional complaints, except as documented and Reports as per HPI ENT Ears, Nose, Mouth, and Throat: Reports system reviewed and no additional complaints, except as documented and Reports as per HPI Cardiovascular Cardiovascular: Reports system reviewed and no additional complaints, except as documented and Reports as per HPI Respiratory Respiratory: Reports system reviewed and no additional complaints, except as documented and Reports as per HPI Gastrointestinal Gastrointestinal: Reports system reviewed and no additional complaints, except as documented and Reports as per HPI Musculoskeletal Musculoskeletal: Reports system reviewed and no additional complaints, except as documented and Reports as per HPI Neurologic Neurologic: Reports system reviewed and no additional complaints, except as documented and Reports as per HPI Past Medical History Past Medical History NEUROLOGIC: Negative Neurological Disorders or Seizures CARDIAC: Negative Cardiac Disorders or Congestive Heart Failure RESPIRATORY: Negative Chronic Obstructive Pulmonary Disease (COPD) or Asthma GASTROINTESTINAL: Negative Gastrointestinal Disorders GENITOURINARY: Negative Genitourinary Disorders or Renal Disease MUSCULOSKELETAL: Negative Musculoskeletal Disorders ENDOCRINE: Negative Endocrine Disorders, Diabetes Mellitus Type 1 or Diabetes Mellitus Type 2 HEMATOLOGIC: Negative Blood Disorders or Sickle Cell Disease PSYCHO/SOCIAL: Positive Recreational Drug Use OTHER HISTORY: Positive Chicken Pox; Negative Hospitalization, Blood Transfusions, Blood Transfusion Reaction, Anesthesia Reactions or Cancer Social History SMOKING STATUS: Former smoker SUBSTANCE USE: methamphetamine ED Exam General Limitations: Present no limitations General appearance: Present alert, in no apparent distress and other (Is awake alert oriented not in distress nontoxic looking well-hydrated well-nourished) Head Head exam: Present atraumatic, normocephalic and normal inspection Eye Eye exam: Present normal appearance, PERRL and EOMI ENT ENT exam: Present normal exam, normal oropharynx, mucous membranes moist and other (HEENT exam is normal and unremarkable) Neck Neck exam: Present normal inspection, full ROM and trachea midline; Absent tenderness, meningismus, lymphadenopathy or thyromegaly Chest Chest inspection: Present normal inspection and symmetric chest wall rise; Absent tenderness Respiratory Respiratory exam: Present normal lung sounds bilaterally and wheezes (Wheezing right lower lung field no crackles no rales no retraction no stridor); Absent respiratory distress Cardiovascular Cardiovascular exam: Present regular rate, normal rhythm and normal heart sounds; Absent bradycardia, tachycardia, irregular rhythm, systolic murmur or diastolic murmur Abdominal Exam Abdominal exam: Present soft and normal bowel sounds; Absent distention, tenderness, guarding, rebound, rigidity, diminished bowel sounds, hyperactive bowel sounds, hypoactive bowel sounds or organomegaly Extremities Exam Extremities exam: Present normal inspection and full ROM Back Exam Back exam: Present normal inspection and full ROM Neurological Exam Neurological exam: Present alert, oriented X3, CN II-XII intact, normal gait and reflexes normal; Absent motor sensory deficit Psychiatric Psychiatric exam: Present normal affect and normal mood Skin Skin exam: Present warm, dry, intact, normal color and other (Excellent skin turgor) Course Quality Measures none Orders Category Date Time Status Albuterol/Ipratr Rt Roseanne [Duoneb Rt Roseanne] Med 03/28/25 04:00 Discontinued 3 ml INH X1 ONE Dexamethasone Inj [Decadron Inj] Med 03/28/25 04:00 Discontinued 10 mg IM X1 ONE Vital Signs Vital signs: Vital Signs Temperature 98.9 F 03/28/25 03:56 Pulse Rate 93 03/28/25 03:56 Respiratory Rate 18 03/28/25 03:56 Blood Pressure 142/94 H 03/28/25 03:56 Pulse Oximetry (%) 100 03/28/25 03:56 Oxygen Delivery Method Room Air 03/28/25 03:56 Oxygen saturation is 100% room air normal Upper Respiratory Infection MDM Narrative MDM Narrative:: This is a case of 39-year-old male with history of anxiety with multiple visits here in the emergency room came in in the emergency room due to cough on and off with mild shortness of breath no chest pain but with mild generalized weakness patient was seen here yesterday morning and was treated for upper respiratory tract infection I saw also this patient yesterday night and was treated for acute bronchitis patient was prescribed with azithromycin Ventolin inhaler and steroid no other symptoms noted physical examination patient is awake alert oriented not in distress nontoxic looking well-hydrated well-nourished HEENT exam is normal and unremarkable neurological exam is normal awake alert oriented x 4 no focal deficit GCS 15/15 steady gait motor or sensory reflex are all normal in all extremities CN II to XII is normal memory intact no slurring speech no facial droop patient lung sounds noted mild wheezing right lower lung field no crackles no rales no retraction no stridor heart normal rate regular rhythm no normal murmur vital signs stable BP stable not tachycardic not tachypneic afebrile and nonhypoxic patient was given breathing treatment here in the emergency room and dexamethasone patient condition markedly improved patient verbalized resolve of symptoms patient will continue the medication that was prescribed by him with the previous provider for any worsening symptoms or any emergent concern return precaution in the ER is advised Patient was discharged with comfortable condition walking with stable gait. Patient verbalized no further complains explained diagnosis and answered patient question. Patient is comfortable with the proposed management plan including the need to follow up with his/her primary care physician and any specialist if applicable Discussed patient for any urgent condition or worsening sx, He/She needed to go to emergency room immediately or call 911. Patient acknowledge the responsibility to follow up as instructed and to monitor her/his symptoms. For any persistence of the symptoms for more than 3-5 days return precaution advised. Discussed the result of the test and was given printed discharge instruction Patient data External records reviewed:: [facility] previous records Clinical information provided by:: none Social determinants that could affect healthcare access:: none Patient has the following chronic illnesses:: None How is presenting disease/condition affected by chronic disease/condition?: no chronic disease Evaluation data The following diagnostics were reviewed and interpreted by me:: other (specify) (None) Lab and/or radiology exams considered but not ordered:: None Interpretation Summary: None Medications / Prescriptions Medications or Prescriptions considered but not ordered:: Reviewed Medication administrations:: Medication Administration History Discontinued Medications Albuterol/Ipratropium (Albuterol/Ipratropium (Duoneb) Rt Roseanne 3 Ml Nebu) 3 ml INH X1 ONE Stop: 03/28/25 04:01 Last Admin: 03/28/25 04:57 Dose: 3 ml Documented By: SHIRAZ Dexamethasone Sodium Phosphate (Dexamethasone Sod Phos Inj 10 Mg/Ml Vial) 10 mg IM X1 ONE Stop: 03/28/25 04:01 Last Admin: 03/28/25 04:57 Dose: 10 mg Documented By: BARBARA Reviewed Consultations Consultation(s) initiated? (list below): No Diagnosis Upper Respiratory Differential Diagnosis: upper respiratory infection, sinusitis, viral infection, bronchitis and pharyngitis Most likely diagnosis given after review of the tests above:: Acute bronchitis Admission Indicated Admission indicated?: not indicated Explain why admission is indicated or not indicated:: Acute bronchitis Admission Request Was there a request for admission?: No Admission Attestation Admission request attestation: Acute bronchitis Disposition Plan Disposition Plan: Discharge Discharge Attestation Discharge Attestation: The patient and all family members were given an opportunity to ask questions and understood the discharge instructions. Discharge instructions specifically effects, indications for sooner follow up or return to the emergency department, and the expected course of current diagnosis. Patient condition: Stable Discharge Plan Plan Patient Disposition: HOME (Self Care) Patient condition on transfer: Stable Prescriptions/Referrals Prescriptions/Med Rec: No Action cetirizine-pseudoephedrine [Zyrtec-D] 5-120 mg tablet extended release 12 hr 1 tab PO BID PRN (Reason: sinus symptoms) Qty: 14 0RF diphenhydramine HCl [Benadryl] 25 mg capsule 25 mg PO Q8H PRN (Reason: allergic symptoms) Qty: 30 0RF ibuprofen 600 mg tablet 600 mg PO QID PRN (Reason: pain) Qty: 20 0RF ciprofloxacin HCl [Cipro] 500 mg tablet 500 mg PO BID Qty: 14 0RF metronidazole 500 mg tablet 500 mg PO BID Qty: 14 0RF dicyclomine 20 mg tablet 20 mg PO BID Qty: 20 0RF hydroxyzine HCl 50 mg tablet 50 mg PO Q6H PRN (Reason: anxiety) Qty: 20 0RF amoxicillin-pot clavulanate 875-125 mg tablet 1 tab PO BID Qty: 14 0RF ibuprofen 600 mg tablet 600 mg PO Q8H PRN (Reason: pain) Qty: 30 0RF acetaminophen 325 mg tablet 650 mg PO TID PRN (Reason: pain) Qty: 30 0RF lidocaine [Lidoderm] 5 % adhesive patch,medicated 2 patch topical QDAY PRN (Reason: pain) Qty: 30 0RF Rx Instructions: leave on most painful area for up to 12 hrs ibuprofen 600 mg tablet 600 mg PO Q8H PRN (Reason: pain) Qty: 14 0RF tizanidine 4 mg tablet 4 mg PO BID PRN (Reason: muscle spasticity) Qty: 20 0RF acetaminophen 500 mg tablet 500 mg PO Q6H PRN (Reason: pain) Qty: 30 0RF hydroxyzine pamoate 25 mg capsule 25 mg PO BID PRN (Reason: anxiety) Qty: 10 0RF albuterol sulfate [Ventolin HFA] 90 mcg/actuation HFA aerosol inhaler 1 inh inhalation Q4H PRN (Reason: shortness of breath or wheezing) Qty: 8.5 0RF amoxicillin-pot clavulanate 875-125 mg tablet 1 tab PO BID Qty: 20 0RF lidocaine HCl [Lidocaine Viscous] 2 % solution 10 ml PO Q4H PRN (Reason: sore throat) Qty: 100 0RF ondansetron 4 mg tablet,disintegrating 4 mg PO Q8H PRN (Reason: nausea and vomiting) Qty: 10 0RF Sudafed PE Head Congestn-Pain 200-10 mg tablet 1 tab PO Q4H PRN (Reason: sinus symptoms) Qty: 20 0RF Benadryl 2 % gel 1 applic topical BID PRN (Reason: skin irritation) Qty: 103 0RF ibuprofen 600 mg tablet 600 mg PO Q6H Qty: 30 0RF omeprazole 20 mg capsule,delayed release(DR/EC) 20 mg PO BID Qty: 30 0RF famotidine [Pepcid] 20 mg tablet 20 mg PO BID 30 Days Qty: 60 0RF ondansetron 4 mg tablet,disintegrating 4 mg PO Q8H Qty: 20 0RF azithromycin 250 mg tablet 250 mg PO QDAY 6 Days Qty: 6 0RF Rx Instructions: start on day 2 of therapy prednisone 20 mg tablet See Taper PO QDAY 5 Days Qty: 5 0RF Taper: Prednisone Taper 20 mg DAILY for 2 Days and 0 Hour 10 mg DAILY for 2 Days and 0 Hour 5 mg DAILY for 7 Days and 0 Hour albuterol sulfate [Ventolin HFA] 90 mcg/actuation HFA aerosol inhaler 2 puff inhalation Q6H PRN (Reason: shortness of breath or wheezing) Qty: 8.5 0RF cyclobenzaprine 7.5 mg tablet 7.5 mg PO TID PRN (Reason: muscle spasm) Qty: 30 0RF hydrocodone-acetaminophen 5-325 mg tablet 1 tab PO BID MDD 10 PRN (Reason: pain) Qty: 14 0RF sumatriptan succinate [Imitrex] 25 mg tablet 25 mg PO Q2H PRN (Reason: migraine headache) Qty: 10 0RF Rx Instructions: do not exceed 8 doses per 24 hrs ondansetron 4 mg tablet,disintegrating 4 mg PO Q8H PRN (Reason: nausea and vomiting) Qty: 20 0RF ibuprofen 800 mg tablet 800 mg PO Q8H PRN (Reason: pain) Qty: 20 0RF dicyclomine 20 mg tablet 20 mg PO QID PRN (Reason: abdominal pain) Qty: 30 0RF cephalexin 500 mg capsule 500 mg PO QID Qty: 40 0RF ondansetron 4 mg tablet,disintegrating 4 mg PO Q8H PRN (Reason: nausea and vomiting) Qty: 20 0RF albuterol sulfate [Ventolin HFA] 90 mcg/actuation HFA aerosol inhaler 2 puff inhalation Q6H PRN (Reason: shortness of breath or wheezing) Qty: 8.5 0RF triamcinolone acetonide 0.025 % ointment 1 applic topical BID Qty: 15 0RF cephalexin 500 mg capsule 500 mg PO QID Qty: 28 0RF dicyclomine 20 mg tablet 20 mg PO BID Qty: 6 0RF dicyclomine 20 mg tablet 20 mg PO TID PRN (Reason: abdominal pain) Qty: 20 0RF Referrals: Michael Rudolph MD [Primary Care Provider, Family Practice] - In 1 week Problem List Clinical Impression: Acute bronchitis Patient/Caregiver Discharge Instructions Education Materials: Acute Bronchitis Additional Instructions: Follow-up with your primary care physician in 2 days for reevaluation worsening symptoms or any emergent concern call 911 or go to the nearest emergency room continue the medication that was prescribed by the previous provider and finish the antibiotic increase water intake keep hydrated Print Language: Nepalese Stand Alone Forms: Selin Award Info., Patient Portal Info Letter PA/PEAT SHREDDER TENDER Supervising Physician PA/PEAT SHREDDER TENDER Supervising Physician: Dr. Watson
== END 2025-03-28 05:23 | disposition home or self-care (01) ==
PROVIDERS: Emergency Provider Emergency Medicine; PCP Family Medicine
DX: J20.9 Acute bronchitis, unspecified (principal); Z87.891 Personal history of nicotine dependence
CPT/HCPCS: 94640; 96372; 99283; A9270; J1100

== ENCOUNTER 2025-04-27 00:54 | Emergency (ER) | payer MEDICAID, SELFPAY ==
[2025-04-27 01:58] VITALS: BP 168/88; PULSE 117; RESP 16; TEMP 36.7; O2SAT 99; BMI 21.9
--- NOTE | 2025-04-27 02:47 | EDNOTE_ITS ---
Upper Respiratory Inf. RME/HPI General Chief Complaint: Abdominal Pain Stated Complaint: ABD PAIN Time Seen by Provider: 04/27/25 02:07 Arrival date/time: 04/27/25 00:54 RME / HPI RME / HPI Narrative: See [facility] for Dr. Lara's HPI Documentation. Related Data Previous Rx's ?Medication ?Instructions ?Recorded cetirizine 5 mg-pseudoephedrine ER 1 tab PO BID PRN si nus symptoms 08/30/21 120 mg tablet,extended #14 tabs release,12hr (Zyrtec-D) diphenhydramine HCl 25 mg capsule 25 mg PO Q8H PRN all ergic symptoms 09/23/22 (Benadryl) #30 caps ibuprofen 600 mg tablet 600 mg PO QID PRN pain #20 t abs 09/23/22 ciprofloxacin HCl 500 mg tablet 500 mg PO BID #14 tabs 11/29/22 (Cipro) dicyclomine 20 mg tablet 20 mg PO BID #20 tabs metronidazole 500 mg tablet 500 mg PO BID #14 tabs cyclobenzaprine 7.5 mg tablet 7.5 mg PO TID PRN muscle spasm #30 12/03/22 tabs hydrocodone 5 mg-acetaminophen 325 1 tab PO BID PRN pa in #14 tabs 01/16/23 mg tablet hydroxyzine HCl 50 mg tablet 50 mg PO Q6H PRN anxiety #20 tabs 01/18/24 amoxicillin 875 mg-potassium 1 tab PO BID #14 tabs 09/25 clavulanate 125 mg tablet acetaminophen 325 mg tablet 650 mg (2 x 325 mg) PO TID PRN 02/11/24 pain #30 tabs ibuprofen 600 mg tablet 600 mg PO Q8H PRN pain #30 t abs 02/11/24 ibuprofen 600 mg tablet 600 mg PO Q8H PRN pain #14 t abs 02/15/24 lidocaine 5 % topical patch 2 patch topical QDAY PRN p ain #30 02/15/24 (Lidoderm) ea acetaminophen 500 mg tablet 500 mg PO Q6H PRN pain #30 tabs 09/15/24 tizanidine 4 mg tablet 4 mg PO BID PRN muscle spast icity 09/15/24 #20 tabs sumatriptan succinate 25 mg tablet 25 mg PO Q2H PRN mi graine headache 10/08/24 (Imitrex) #10 tabs albuterol sulfate 90 mcg/actuation 1 inh inhalation Q4 H PRN shortness 11/06/24 aerosol inhaler (Ventolin HFA) of breath or wheezing # 8.5 grams hydroxyzine pamoate 25 mg capsule 25 mg PO BID PRN anx iety #10 caps 11/06/24 ibuprofen 800 mg tablet 800 mg PO Q8H PRN pain #20 t abs 12/21/24 ondansetron 4 mg disintegrating 4 mg PO Q8H PRN nausea and 12/21/24 tablet vomiting #20 tabs dicyclomine 20 mg tablet 20 mg PO QID PRN abdominal p ain 12/27/24 #30 tabs cephalexin 500 mg capsule 500 mg PO QID #40 caps 12/28 albuterol sulfate 90 mcg/actuation 2 puff inhalation Q 6H PRN 01/03/25 aerosol inhaler (Ventolin HFA) shortness of breath or wheezing #8.5 grams ondansetron 4 mg disintegrating 4 mg PO Q8H PRN nausea and 01/03/25 tablet vomiting #20 tabs amoxicillin 875 mg-potassium 1 tab PO BID #20 tabs clavulanate 125 mg tablet ibuprofen 200 mg-phenylephrine HCl 1 tab PO Q4H PRN si nus symptoms 01/16/25 10 mg tablet (Sudafed PE Head #20 tabs Congestion-Pain) lidocaine HCl 2 % mucosal solution 10 ml PO Q4H PRN so re throat #100 01/16/25 (Lidocaine Viscous) mL ondansetron 4 mg disintegrating 4 mg PO Q8H PRN nausea and 01/16/25 tablet vomiting #10 tabs cephalexin 500 mg capsule 500 mg PO QID #28 caps 01/18 triamcinolone acetonide 0.025 % 1 applic topical BID # 15 grams 01/18/25 topical ointment dicyclomine 20 mg tablet 20 mg PO BID #6 tabs 01/30/ 5 diphenhydramine HCl 2 % topical 1 applic topical BID P RN skin 02/11/25 gel (Benadryl) irritation #103 mL ibuprofen 600 mg tablet 600 mg PO Q6H #30 tabs 03/10 dicyclomine 20 mg tablet 20 mg PO TID PRN abdominal p ain 03/13/25 #20 tabs omeprazole 20 mg capsule,delayed 20 mg PO BID #30 caps 03/13/25 release ondansetron 4 mg disintegrating 4 mg PO Q8H #20 tabs 1 05/13/24 tablet albuterol sulfate 90 mcg/actuation 2 puff inhalation Q 6H PRN 03/27/25 aerosol inhaler (Ventolin HFA) shortness of breath or wheezing #8.5 grams albuterol sulfate 90 mcg/actuation 2 puff inhalation Q 6H PRN 04/27/25 aerosol inhaler shortness of breath or wheez ing #8.5 grams azithromycin 500 mg tablet 500 mg PO QDAY 3 days #3 ta bs 04/27/25 (Zithromax TRI-DARWIN) Allergies Allergy/AdvReac Type Severity Reaction Status Date / Time No Known Allergies Allergy Verified 03/28/25 03:45 Review of Systems Review of Systems Systems Reviewed: All systems reviewed, normal except as documented Past Medical History Past Medical History PSYCHO/SOCIAL: Positive Recreational Drug Use OTHER HISTORY: Positive Chicken Pox Social History SUBSTANCE USE: methamphetamine ED Exam Narrative Physical exam: See [facility] for Dr. Lara's Physical Exam Documentation. Course Quality Measures none Orders Category Date Time Status Bedside COVID-19 Antigen Test NOW Care 04/27/25 02:48 Completed Bedside Influenza A&B Antigen Test NOW Care 04/27/25 02:48 Completed EKG (ED ONLY) *Do not use* NOW Care 04/27/25 02:48 Completed EKG (ED Only) Stat Exams 04/27/25 02:48 Draft XR chest 1V portable Stat Exams 04/27/25 02:48 Taken BMP [Basic Metabolic Panel] Stat Lab 04/27/25 02:58 Completed CBC Stat Lab 04/27/25 02:58 Completed Magnesium Stat Lab 04/27/25 02:58 Completed Troponin I Stat Lab 04/27/25 02:58 Completed Acetaminophen Tab [Tylenol ES Tab] Med 04/27/25 02:46 Discontinued 1,000 mg PO X1 ONE Metoprolol Tartrate [Lopressor] Med 04/27/25 02:46 Discontinued 75 mg PO X1 ONE Ondansetron Odt [Zofran Odt] Med 04/27/25 02:46 Discontinued 4 mg PO X1 ONE Vital Signs Vital signs: Vital Signs Temperature 98.1 F 04/27/25 01:58 Pulse Rate 117 H 04/27/25 01:58 Respiratory Rate 16 04/27/25 01:58 Blood Pressure 168/88 H 04/27/25 01:58 Pulse Oximetry (%) 99 04/27/25 01:58 Oxygen Delivery Method Room Air 04/27/25 01:58 Upper Respiratory Infection MDM Narrative MDM Narrative:: This section includes all my notes and documentations, including HPI, PE, and ED course. Boston Lara MD HPI: 39 y/o male with Hx of Methamphetamine here with about a week of worsening cough, productive cough, purulent sputum, and dyspnea. With subjective fever and chills and aches and nausea. No other complaints. ROS: All negative except as documented in HPI. Physical Exam: General: Alert and oriented. No acute distress when remaining still. High BP noted. Eyes: Conjunctivae and lids clear. ENT: No nasal congestion. Pharynx normal. TM normal bilaterally. Neck: Supple. Heart: Tachycardia with regular rhythm. Lungs: No respiratory distress. Good air movement with scattered rhonchi. Abdomen: Soft and nontender. Normal bowel sounds. No distension. No rebound or guarding. Back: No CVA tenderness. Skin: Warm and dry. Neuro: Alert and oriented X 3. I reviewed all diagnostic test results: My interpretation of the EKG is: Sinus tachycardia (113 bpm) with nonspecific ST-T changes. My interpretation of the chest x-ray is increased bronchial markings. Blood tests are unremarkable. Covid/Influenza: Negative. At this point, diagnoses include: Respiratory Infection Treatment here included: Tylenol 1000 mg PO Lopressor 75 mg PO Zofran ODT 4 mg He felt much better. Recommended outpatient treatment. Based on my best medical judgment, made decision no further evaluation or treatment indicated at this time. Patient understands and agrees to the discharge instructions customized and printed, see below. Discharge instructions from Dr. Lara: -- No physical exertion for 3 days to help rest the lungs. -- No smoking or exposure to smoking or pets or dust or cold or humidity. -- Zithromax to kill the germs causing the bronchitis. -- Albuterol 2 puffs every 4-6 hours as needed for cough or shortness of breath. -- Tylenol/ibuprofen as needed for fever or pain. -- See a private doctor on 04/23/2025 for recheck. -- Seek immediate medical care with worsening or with any concerns. Boston Lara MD Patient data External records reviewed:: [facility] previous records (Reviewed prior ED records from 03/27/25. Patient was seen for URI (upper respiratory infection).) Clinical information provided by:: patient Social determinants that could affect healthcare access:: substance use (Methamphetamine) Patient has the following chronic illnesses:: Recreational Drug Abuse How is presenting disease/condition affected by chronic disease/condition?: exacerbated by Evaluation data The following diagnostics were reviewed and interpreted by me:: lab results, radiology exam(s) and EKG tracing(s) (My interpretation of the EKG is: Sinus tachycardia (113 bpm) with nonspecific ST-T changes. Boston Lara MD) Lab and/or radiology exams considered but not ordered:: None Interpretation Summary: I reviewed all diagnostic test results: My interpretation of the EKG is: Sinus tachycardia (113 bpm) with nonspecific ST-T changes. My interpretation of the chest x-ray is increased bronchial markings. Blood tests are unremarkable. Covid/Influenza: Negative. Medications / Prescriptions Medications or Prescriptions considered but not ordered:: None Medication administrations:: Medication Administration History Discontinued Medications Acetaminophen (Acetaminophen 500 Mg Tablet) 1,000 mg PO X1 ONE Stop: 04/27/25 02:47 Last Admin: 04/27/25 03:09 Dose: 1,000 mg Documented By: CVL Metoprolol Tartrate (Metoprolol Tartrate 25 Mg Tablet) 75 mg PO X1 ONE Stop: 04/27/25 02:47 Last Admin: 04/27/25 03:10 Dose: 75 mg Documented By: CVL Ondansetron HCl (Ondansetron Odt 4 Mg Tabrap) 4 mg PO X1 ONE; Protocol Stop: 04/27/25 02:47 Last Admin: 04/27/25 03:08 Dose: 4 mg Documented By: CVL Treatment here included: Tylenol 1000 mg PO Lopressor 75 mg PO Zofran ODT 4 mg Consultations Consultation(s) initiated? (list below): No Diagnosis Upper Respiratory Differential Diagnosis: upper respiratory infection, croup, otitis media, sinusitis, viral infection, bronchitis, influenza, pharyngitis and other (COVID) Most likely diagnosis given after review of the tests above:: Respiratory Infection Admission Indicated Admission indicated?: not indicated Explain why admission is indicated or not indicated:: With significant improvement and no condition needing emergent intervention, there was no indication for admission. Admission Request Was there a request for admission?: No Disposition Plan Disposition Plan: Discharge Discharge Attestation Discharge Attestation: The patient and all family members were given an opportunity to ask questions and understood the discharge instructions. Discharge instructions specifically effects, indications for sooner follow up or return to the emergency department, and the expected course of current diagnosis. Patient condition: Stable Discharge Plan Plan Patient Disposition: HOME (Self Care) Prescriptions/Referrals Prescriptions/Med Rec: New albuterol sulfate 90 mcg/actuation HFA aerosol inhaler 2 puff inhalation Q6H PRN (Reason: shortness of breath or wheezing) Qty: 8.5 0RF azithromycin [Zithromax TRI-DARWIN] 500 mg tablet 500 mg PO QDAY 3 Days Qty: 3 0RF No Action cetirizine-pseudoephedrine [Zyrtec-D] 5-120 mg tablet extended release 12 hr 1 tab PO BID PRN (Reason: sinus symptoms) Qty: 14 0RF diphenhydramine HCl [Benadryl] 25 mg capsule 25 mg PO Q8H PRN (Reason: allergic symptoms) Qty: 30 0RF ibuprofen 600 mg tablet 600 mg PO QID PRN (Reason: pain) Qty: 20 0RF ciprofloxacin HCl [Cipro] 500 mg tablet 500 mg PO BID Qty: 14 0RF metronidazole 500 mg tablet 500 mg PO BID Qty: 14 0RF dicyclomine 20 mg tablet 20 mg PO BID Qty: 20 0RF hydroxyzine HCl 50 mg tablet 50 mg PO Q6H PRN (Reason: anxiety) Qty: 20 0RF amoxicillin-pot clavulanate 875-125 mg tablet 1 tab PO BID Qty: 14 0RF ibuprofen 600 mg tablet 600 mg PO Q8H PRN (Reason: pain) Qty: 30 0RF acetaminophen 325 mg tablet 650 mg PO TID PRN (Reason: pain) Qty: 30 0RF lidocaine [Lidoderm] 5 % adhesive patch,medicated 2 patch topical QDAY PRN (Reason: pain) Qty: 30 0RF Rx Instructions: leave on most painful area for up to 12 hrs ibuprofen 600 mg tablet 600 mg PO Q8H PRN (Reason: pain) Qty: 14 0RF tizanidine 4 mg tablet 4 mg PO BID PRN (Reason: muscle spasticity) Qty: 20 0RF acetaminophen 500 mg tablet 500 mg PO Q6H PRN (Reason: pain) Qty: 30 0RF hydroxyzine pamoate 25 mg capsule 25 mg PO BID PRN (Reason: anxiety) Qty: 10 0RF albuterol sulfate [Ventolin HFA] 90 mcg/actuation HFA aerosol inhaler 1 inh inhalation Q4H PRN (Reason: shortness of breath or wheezing) Qty: 8.5 0RF amoxicillin-pot clavulanate 875-125 mg tablet 1 tab PO BID Qty: 20 0RF lidocaine HCl [Lidocaine Viscous] 2 % solution 10 ml PO Q4H PRN (Reason: sore throat) Qty: 100 0RF ondansetron 4 mg tablet,disintegrating 4 mg PO Q8H PRN (Reason: nausea and vomiting) Qty: 10 0RF Sudafed PE Head Congestn-Pain 200-10 mg tablet 1 tab PO Q4H PRN (Reason: sinus symptoms) Qty: 20 0RF Benadryl 2 % gel 1 applic topical BID PRN (Reason: skin irritation) Qty: 103 0RF ibuprofen 600 mg tablet 600 mg PO Q6H Qty: 30 0RF omeprazole 20 mg capsule,delayed release(DR/EC) 20 mg PO BID Qty: 30 0RF ondansetron 4 mg tablet,disintegrating 4 mg PO Q8H Qty: 20 0RF albuterol sulfate [Ventolin HFA] 90 mcg/actuation HFA aerosol inhaler 2 puff inhalation Q6H PRN (Reason: shortness of breath or wheezing) Qty: 8.5 0RF cyclobenzaprine 7.5 mg tablet 7.5 mg PO TID PRN (Reason: muscle spasm) Qty: 30 0RF hydrocodone-acetaminophen 5-325 mg tablet 1 tab PO BID MDD 10 PRN (Reason: pain) Qty: 14 0RF sumatriptan succinate [Imitrex] 25 mg tablet 25 mg PO Q2H PRN (Reason: migraine headache) Qty: 10 0RF Rx Instructions: do not exceed 8 doses per 24 hrs ondansetron 4 mg tablet,disintegrating 4 mg PO Q8H PRN (Reason: nausea and vomiting) Qty: 20 0RF ibuprofen 800 mg tablet 800 mg PO Q8H PRN (Reason: pain) Qty: 20 0RF dicyclomine 20 mg tablet 20 mg PO QID PRN (Reason: abdominal pain) Qty: 30 0RF cephalexin 500 mg capsule 500 mg PO QID Qty: 40 0RF ondansetron 4 mg tablet,disintegrating 4 mg PO Q8H PRN (Reason: nausea and vomiting) Qty: 20 0RF albuterol sulfate [Ventolin HFA] 90 mcg/actuation HFA aerosol inhaler 2 puff inhalation Q6H PRN (Reason: shortness of breath or wheezing) Qty: 8.5 0RF triamcinolone acetonide 0.025 % ointment 1 applic topical BID Qty: 15 0RF cephalexin 500 mg capsule 500 mg PO QID Qty: 28 0RF dicyclomine 20 mg tablet 20 mg PO BID Qty: 6 0RF dicyclomine 20 mg tablet 20 mg PO TID PRN (Reason: abdominal pain) Qty: 20 0RF Referrals: Michael Rudolph MD [Primary Care Provider, Family Practice] - In 1 week Problem List Clinical Impression: Respiratory infection Patient/Caregiver Discharge Instructions Discharge Activity: activity as tolerated Education Materials: ED Bronchitis, Antibiotics (Child) Additional Instructions: Discharge instructions from Dr. Lara: -- No physical exertion for 3 days to help rest the lungs. -- No smoking or exposure to smoking or pets or dust or cold or humidity. -- Zithromax to kill the germs causing the bronchitis. -- Albuterol 2 puffs every 4-6 hours as needed for cough or shortness of breath. -- Tylenol/ibuprofen as needed for fever or pain. -- See a private doctor on 04/23/2025 for recheck. -- Seek immediate medical care with worsening or with any concerns. Print Language: Setswana Stand Alone Forms: [employer] Award Info., Patient Portal Info Letter
--- NOTE | 2025-04-27 02:48 | XR_ITS ---
Upright PA chest film 04/27/2025 at 2:47 a.m. Comparison study 03/26/2025 INDICATION: Shortness of breath FINDINGS: The heart and mediastinum appear normal. Both lungs are clear no pleural fluid is seen There is a very tiny 6 mm diameter nodule overlying the lower third of the left lung, this is unchanged since the previous film of 03/26/2025 it is sharply defined laterally, indistinct medially which is classic for a nipple shadow. IMPRESSION: 1. Normal chest
--- NOTE | 2025-04-27 02:48 | EKG_ITS ---
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
[2025-04-27] MEDS: ONDANSETRON ODT 4 MG TABRAP PO (03:08)
[2025-04-27] MEDS: ACETAMINOPHEN 500 MG TABLET 1000 MG PO (03:09)
[2025-04-27 03:10] VITALS: BP 168/88; PULSE 117
[2025-04-27] MEDS: METOPROLOL TARTRATE 25 MG TABLET 75 MG PO (03:10)
[2025-04-27 03:24] LABS: Basophils # (Auto) 0.0 Thou/mm3 (0.0-0.2); Basophils % (Auto) 0 % (0-2.5); Eosinophils # (Auto) 0.2 Thou/mm3 (0.0-0.5); Eosinophils % (Auto) 3 % (0-10); Hematocrit 44.5 % (41.0-53.0); Hemoglobin 15.2 g/dL (13.5-16.0); Immature Granulocytes Auto 0.02 Thou/mm3 (0.00-0.00); Lymphocytes # (Auto) 1.5 Thou/mm3 (1.0-4.8); Lymphocytes % (Auto) 17 % (10-50); Mean Corpuscular HGB Conc 34.2 g/dl (31.0-37.0); Mean Corpuscular Hemoglobin 30.8 pg (25.0-35.0); Mean Corpuscular Volume 90 fL (80-100); Monocytes # (Auto) 0.9 Thou/mm3 (0.0-0.8); Monocytes % (Auto) 10 % (0-12); Neutrophils # (Auto) 5.8 Thou/mm3 (1.8-7.7); Neutrophils % (Auto) 69 % (37-80); Nucleated Red Blood Cell # 0.00 Thou/mm3 (0.00-0.00); Nucleated Red Blood Cell % 0 /100 WBC (0); Platelet Count 366 Thou/mm3 (140-440); RDW Standard Deviation 43.5 fL (35.1-43.9); Red Blood Count 4.93 Miln/mm3 (4.50-5.90); White Blood Count 8.4 Thou/mm3 (3.8-10.6)
[2025-04-27 03:42] LABS: Anion Gap 11 (7-16); BUN/Creatinine Ratio 15 Ratio (12-20); Blood Urea Nitrogen 16 mg/dL (9-23); Calcium 9.7 mg/dL (8.3-10.6); Carbon Dioxide 26.8 mMol/L (20.0-31.0); Chloride 102 mMol/L (98-107); Creatinine (Component) 1.1 mg/dL (0.6-1.3); Estimated Creatinine Clearance 82.6 mL/min (>60); Glucose 123 mg/dL (74-106); Magnesium 2.1 mg/dL (1.6-2.6); Osmolality,Calculated 281 (275-295); Potassium 3.7 mMol/L (3.4-5.1); Sodium 140 mMol/L (136-145); Troponin I < 0.020 ng/mL (0.0-0.045); eGFR > 60 See Note
[2025-04-27 04:54] VITALS: BP 188/125; PULSE 76; RESP 18; TEMP 36.8; O2SAT 98
[2025-04-27 05:01] VITALS: BP 165/110; RESP 17
== END 2025-04-27 05:02 | disposition home or self-care (01) ==
PROVIDERS: Emergency Provider Emergency Medicine; PCP Family Medicine
DX: J98.8 Other specified respiratory disorders (principal); R00.0 Tachycardia, unspecified
CPT/HCPCS: 36415; 71045; 80048; 80307; 83735; 84484; 85025; 87502; 87635; 93005; 99283; Q0162; A9270

== ENCOUNTER 2025-04-27 07:16 | Emergency (ER) | payer MEDICAID, SELFPAY ==
[2025-04-27 07:27] VITALS: BP 164/108; BP 176/110; PULSE 67; RESP 16; TEMP 36.6; O2SAT 100; BMI 21.9
--- NOTE | 2025-04-27 08:02 | PD.EDBACK ---
ED Back Injury Pain RME/HPI General Chief Complaint: Back Pain/Injury Stated Complaint: BACK PAIN 12/12 Time Seen by Provider: 04/27/25 07:19 Arrival date/time: 04/27/25 07:16 39-year-old male well-known to me with medical history significant for methamphetamine base presents to the emergency department today stating that he is having lower back pain patient reports this is acute on chronic Limitations: no limitations Related Data Previous Rx's ?Medication ?Instructions ?Recorded cetirizine 5 mg-pseudoephedrine ER 1 tab PO BID PRN sinus symptoms 08/30/21 120 mg tablet,extended #14 tabs release,12hr (Zyrtec-D) diphenhydramine HCl 25 mg capsule 25 mg PO Q8H PRN allergic symptoms 09/23/22 (Benadryl) #30 caps ibuprofen 600 mg tablet 600 mg PO QID PRN pain #20 tabs 09/23/22 ciprofloxacin HCl 500 mg tablet 500 mg PO BID #14 tabs 11/29/22 (Cipro) dicyclomine 20 mg tablet 20 mg PO BID #20 tabs 11/29/22 metronidazole 500 mg tablet 500 mg PO BID #14 tabs 11/29/22 cyclobenzaprine 7.5 mg tablet 7.5 mg PO TID PRN muscle spasm #30 12/03/22 tabs hydrocodone 5 mg-acetaminophen 325 1 tab PO BID PRN pain #14 tabs 01/16/23 mg tablet hydroxyzine HCl 50 mg tablet 50 mg PO Q6H PRN anxiety #20 tabs 01/18/24 amoxicillin 875 mg-potassium 1 tab PO BID #14 tabs 02/07/24 clavulanate 125 mg tablet acetaminophen 325 mg tablet 650 mg (2 x 325 mg) PO TID PRN 02/11/24 pain #30 tabs ibuprofen 600 mg tablet 600 mg PO Q8H PRN pain #30 tabs 02/11/24 ibuprofen 600 mg tablet 600 mg PO Q8H PRN pain #14 tabs 02/15/24 lidocaine 5 % topical patch 2 patch topical QDAY PRN pain #30 02/15/24 (Lidoderm) ea acetaminophen 500 mg tablet 500 mg PO Q6H PRN pain #30 tabs 09/15/24 tizanidine 4 mg tablet 4 mg PO BID PRN muscle spasticity 09/15/24 #20 tabs sumatriptan succinate 25 mg tablet 25 mg PO Q2H PRN migraine headache 10/08/24 (Imitrex) #10 tabs albuterol sulfate 90 mcg/actuation 1 inh inhalation Q4H PRN shortness 11/06/24 aerosol inhaler (Ventolin HFA) of breath or wheezing #8.5 grams hydroxyzine pamoate 25 mg capsule 25 mg PO BID PRN anxiety #10 caps 11/06/24 ibuprofen 800 mg tablet 800 mg PO Q8H PRN pain #20 tabs 12/21/24 ondansetron 4 mg disintegrating 4 mg PO Q8H PRN nausea and 12/21/24 tablet vomiting #20 tabs dicyclomine 20 mg tablet 20 mg PO QID PRN abdominal pain 12/27/24 #30 tabs cephalexin 500 mg capsule 500 mg PO QID #40 caps 12/28/24 albuterol sulfate 90 mcg/actuation 2 puff inhalation Q6H PRN 01/03/25 aerosol inhaler (Ventolin HFA) shortness of breath or wheezing #8.5 grams ondansetron 4 mg disintegrating 4 mg PO Q8H PRN nausea and 01/03/25 tablet vomiting #20 tabs amoxicillin 875 mg-potassium 1 tab PO BID #20 tabs 01/16/25 clavulanate 125 mg tablet ibuprofen 200 mg-phenylephrine HCl 1 tab PO Q4H PRN sinus symptoms 01/16/25 10 mg tablet (Sudafed PE Head #20 tabs Congestion-Pain) lidocaine HCl 2 % mucosal solution 10 ml PO Q4H PRN sore throat #100 01/16/25 (Lidocaine Viscous) mL ondansetron 4 mg disintegrating 4 mg PO Q8H PRN nausea and 01/16/25 tablet vomiting #10 tabs cephalexin 500 mg capsule 500 mg PO QID #28 caps 01/18/25 triamcinolone acetonide 0.025 % 1 applic topical BID #15 grams 01/18/25 topical ointment dicyclomine 20 mg tablet 20 mg PO BID #6 tabs 01/30/25 diphenhydramine HCl 2 % topical 1 applic topical BID PRN skin 02/11/25 gel (Benadryl) irritation #103 mL ibuprofen 600 mg tablet 600 mg PO Q6H #30 tabs 03/10/25 dicyclomine 20 mg tablet 20 mg PO TID PRN abdominal pain 03/13/25 #20 tabs omeprazole 20 mg capsule,delayed 20 mg PO BID #30 caps 03/13/25 release ondansetron 4 mg disintegrating 4 mg PO Q8H #20 tabs 03/13/25 tablet albuterol sulfate 90 mcg/actuation 2 puff inhalation Q6H PRN 03/27/25 aerosol inhaler (Ventolin HFA) shortness of breath or wheezing #8.5 grams albuterol sulfate 90 mcg/actuation 2 puff inhalation Q6H PRN 04/27/25 aerosol inhaler shortness of breath or wheezing #8.5 grams azithromycin 500 mg tablet 500 mg PO QDAY 3 days #3 tabs 04/27/25 (Zithromax TRI-DARWIN) Allergies Allergy/AdvReac Type Severity Reaction Status Date / Time No Known Allergies Allergy Verified 04/27/25 07:19 Review of Systems Review of Systems Systems Reviewed: All systems reviewed, normal except as documented Constitutional Constitutional: Reports system reviewed and no additional complaints, except as documented, Denies fever(s) and Denies headache(s) Eyes Eyes: Reports system reviewed and no additional complaints, except as documented and Denies blurry vision ENT Ears, Nose, Mouth, and Throat: Reports system reviewed and no additional complaints, except as documented, Denies headache(s), Denies nasal congestion and Denies nasal discharge Cardiovascular Cardiovascular: Reports system reviewed and no additional complaints, except as documented, Denies chest pain and Denies dyspnea Respiratory Respiratory: Reports system reviewed and no additional complaints, except as documented, Denies chest congestion, Denies cough and Denies dyspnea Gastrointestinal Gastrointestinal: Reports system reviewed and no additional complaints, except as documented and Denies abdominal pain Musculoskeletal Musculoskeletal: Reports system reviewed and no additional complaints, except as documented and Reports back pain Integumentary/Breasts Skin/Breast: Reports system reviewed and no additional complaints, except as documented and Denies rash Neurologic Neurologic: Reports system reviewed and no additional complaints, except as documented, Reports as per HPI and Denies headache(s) Past Medical History Past Medical History NEUROLOGIC: Negative Neurological Disorders or Seizures CARDIAC: Negative Cardiac Disorders or Congestive Heart Failure RESPIRATORY: Negative Chronic Obstructive Pulmonary Disease (COPD) or Asthma GASTROINTESTINAL: Negative Gastrointestinal Disorders GENITOURINARY: Negative Genitourinary Disorders or Renal Disease MUSCULOSKELETAL: Negative Musculoskeletal Disorders ENDOCRINE: Negative Endocrine Disorders, Diabetes Mellitus Type 1 or Diabetes Mellitus Type 2 HEMATOLOGIC: Negative Blood Disorders or Sickle Cell Disease PSYCHO/SOCIAL: Positive Recreational Drug Use OTHER HISTORY: Positive Chicken Pox; Negative Hospitalization, Blood Transfusions, Blood Transfusion Reaction, Anesthesia Reactions or Cancer Social History SMOKING STATUS: Never smoker SUBSTANCE USE: methamphetamine ED Exam General Limitations: Present no limitations General appearance: Present alert and in no apparent distress Head Head exam: Present atraumatic, normocephalic and normal inspection Eye Eye exam: Present normal appearance, PERRL and EOMI; Absent conjunctival injection ENT ENT exam: Present normal exam, normal oropharynx and mucous membranes moist Neck Neck exam: Present normal inspection, full ROM and trachea midline Chest Chest inspection: Present normal inspection and symmetric chest wall rise Respiratory Respiratory exam: Present normal lung sounds bilaterally Cardiovascular Cardiovascular exam: Present regular rate, normal rhythm and normal heart sounds Abdominal Exam Abdominal exam: Present soft and normal bowel sounds; Absent distention, tenderness, guarding, rebound or rigidity Extremities Exam Extremities exam: Present normal inspection and full ROM Back Exam Back exam: Present normal inspection, full ROM, tenderness, muscle spasm and paraspinal tenderness; Absent CVA tenderness (R) or CVA tenderness (L) Neurological Exam Neurological exam: Present alert, oriented X3 and CN II-XII intact Psychiatric Psychiatric exam: Present normal affect and normal mood Skin Skin exam: Present warm, dry, intact and normal color Course Quality Measures none Vital Signs Vital signs: Vital Signs Temperature 97.9 F 04/27/25 07:27 Pulse Rate 67 04/27/25 07:27 Respiratory Rate 16 04/27/25 07:27 Blood Pressure 176/110 H 04/27/25 07:27 Pulse Oximetry (%) 100 04/27/25 07:27 Oxygen Delivery Method Room Air 04/27/25 07:27 O2 saturation 100% room air with normal limits Back Pain / Injury MDM Narrative MDM Narrative:: 39-year-old male well-known to me with medical history significant for methamphetamine base presents to the emergency department today stating that he is having lower back pain patient reports this is acute on chronic Patient was evaluated last night had full workup X-ray of the lumbar spine ordered patient declined Patient left prior to final disposition Patient data External records reviewed:: [facility] previous records Clinical information provided by:: patient Social determinants that could affect healthcare access:: substance use Patient has the following chronic illnesses:: Substance abuse How is presenting disease/condition affected by chronic disease/condition?: caused by Evaluation data The following diagnostics were reviewed and interpreted by me:: other (specify) (Radiology ordered) Lab and/or radiology exams considered but not ordered:: Patient refused Interpretation Summary: N/A Medications / Prescriptions Medications or Prescriptions considered but not ordered:: Given no meds Medication administrations:: Given no meds Consultations Consultation(s) initiated? (list below): No Diagnosis Differential diagnosis back pain/injury: lumbar radiculopathy, sciatica and strain of lumbar region Most likely diagnosis given after review of the tests above:: Back pain Admission Indicated Admission indicated?: not indicated Admission Request Was there a request for admission?: No Disposition Plan Disposition Plan: Discharge Discharge Attestation Discharge Attestation: The patient and all family members were given an opportunity to ask questions and understood the discharge instructions. Discharge instructions specifically effects, indications for sooner follow up or return to the emergency department, and the expected course of current diagnosis. Patient condition: Stable Discharge Plan Plan Patient Disposition: HOME (Self Care) Discharge Disposition comment: Stable Prescriptions/Referrals Prescriptions/Med Rec: No Action cetirizine-pseudoephedrine [Zyrtec-D] 5-120 mg tablet extended release 12 hr 1 tab PO BID PRN (Reason: sinus symptoms) Qty: 14 0RF diphenhydramine HCl [Benadryl] 25 mg capsule 25 mg PO Q8H PRN (Reason: allergic symptoms) Qty: 30 0RF ibuprofen 600 mg tablet 600 mg PO QID PRN (Reason: pain) Qty: 20 0RF ciprofloxacin HCl [Cipro] 500 mg tablet 500 mg PO BID Qty: 14 0RF metronidazole 500 mg tablet 500 mg PO BID Qty: 14 0RF dicyclomine 20 mg tablet 20 mg PO BID Qty: 20 0RF hydroxyzine HCl 50 mg tablet 50 mg PO Q6H PRN (Reason: anxiety) Qty: 20 0RF amoxicillin-pot clavulanate 875-125 mg tablet 1 tab PO BID Qty: 14 0RF ibuprofen 600 mg tablet 600 mg PO Q8H PRN (Reason: pain) Qty: 30 0RF acetaminophen 325 mg tablet 650 mg PO TID PRN (Reason: pain) Qty: 30 0RF lidocaine [Lidoderm] 5 % adhesive patch,medicated 2 patch topical QDAY PRN (Reason: pain) Qty: 30 0RF Rx Instructions: leave on most painful area for up to 12 hrs ibuprofen 600 mg tablet 600 mg PO Q8H PRN (Reason: pain) Qty: 14 0RF tizanidine 4 mg tablet 4 mg PO BID PRN (Reason: muscle spasticity) Qty: 20 0RF acetaminophen 500 mg tablet 500 mg PO Q6H PRN (Reason: pain) Qty: 30 0RF hydroxyzine pamoate 25 mg capsule 25 mg PO BID PRN (Reason: anxiety) Qty: 10 0RF albuterol sulfate [Ventolin HFA] 90 mcg/actuation HFA aerosol inhaler 1 inh inhalation Q4H PRN (Reason: shortness of breath or wheezing) Qty: 8.5 0RF amoxicillin-pot clavulanate 875-125 mg tablet 1 tab PO BID Qty: 20 0RF lidocaine HCl [Lidocaine Viscous] 2 % solution 10 ml PO Q4H PRN (Reason: sore throat) Qty: 100 0RF ondansetron 4 mg tablet,disintegrating 4 mg PO Q8H PRN (Reason: nausea and vomiting) Qty: 10 0RF Sudafed PE Head Congestn-Pain 200-10 mg tablet 1 tab PO Q4H PRN (Reason: sinus symptoms) Qty: 20 0RF Benadryl 2 % gel 1 applic topical BID PRN (Reason: skin irritation) Qty: 103 0RF ibuprofen 600 mg tablet 600 mg PO Q6H Qty: 30 0RF omeprazole 20 mg capsule,delayed release(DR/EC) 20 mg PO BID Qty: 30 0RF ondansetron 4 mg tablet,disintegrating 4 mg PO Q8H Qty: 20 0RF albuterol sulfate [Ventolin HFA] 90 mcg/actuation HFA aerosol inhaler 2 puff inhalation Q6H PRN (Reason: shortness of breath or wheezing) Qty: 8.5 0RF albuterol sulfate 90 mcg/actuation HFA aerosol inhaler 2 puff inhalation Q6H PRN (Reason: shortness of breath or wheezing) Qty: 8.5 0RF azithromycin [Zithromax TRI-DARWIN] 500 mg tablet 500 mg PO QDAY 3 Days Qty: 3 0RF cyclobenzaprine 7.5 mg tablet 7.5 mg PO TID PRN (Reason: muscle spasm) Qty: 30 0RF hydrocodone-acetaminophen 5-325 mg tablet 1 tab PO BID MDD 10 PRN (Reason: pain) Qty: 14 0RF sumatriptan succinate [Imitrex] 25 mg tablet 25 mg PO Q2H PRN (Reason: migraine headache) Qty: 10 0RF Rx Instructions: do not exceed 8 doses per 24 hrs ondansetron 4 mg tablet,disintegrating 4 mg PO Q8H PRN (Reason: nausea and vomiting) Qty: 20 0RF ibuprofen 800 mg tablet 800 mg PO Q8H PRN (Reason: pain) Qty: 20 0RF dicyclomine 20 mg tablet 20 mg PO QID PRN (Reason: abdominal pain) Qty: 30 0RF cephalexin 500 mg capsule 500 mg PO QID Qty: 40 0RF ondansetron 4 mg tablet,disintegrating 4 mg PO Q8H PRN (Reason: nausea and vomiting) Qty: 20 0RF albuterol sulfate [Ventolin HFA] 90 mcg/actuation HFA aerosol inhaler 2 puff inhalation Q6H PRN (Reason: shortness of breath or wheezing) Qty: 8.5 0RF triamcinolone acetonide 0.025 % ointment 1 applic topical BID Qty: 15 0RF cephalexin 500 mg capsule 500 mg PO QID Qty: 28 0RF dicyclomine 20 mg tablet 20 mg PO BID Qty: 6 0RF dicyclomine 20 mg tablet 20 mg PO TID PRN (Reason: abdominal pain) Qty: 20 0RF Problem List Clinical Impression: Acute on chronic back pain, Methamphetamine abuse Patient/Caregiver Discharge Instructions Additional Instructions: Please follow up with your primary care doctor in the next 24-48hrs for any worsening symptoms return here immediately Print Language: Romansh Stand Alone Forms: Selin Award Info., Patient Portal Info Letter PA/ENERGY CONSERVATION TECHNICIAN Supervising Physician PA/ENERGY CONSERVATION TECHNICIAN Supervising Physician: Dr marie
== END 2025-04-27 08:32 | disposition home or self-care (01) ==
LOC: SERX 08:09
PROVIDERS: Emergency Provider Nurse Practitioner Primary Care; PCP Family Medicine
DX: M54.50 Low back pain, unspecified (principal); F15.10 Other stimulant abuse, uncomplicated; G89.29 Other chronic pain
CPT/HCPCS: 99281

== ENCOUNTER 2025-04-27 17:35 | Emergency (ER) | payer MEDICAID, SELFPAY ==
[2025-04-27 17:36] VITALS: PULSE 74; RESP 16
[2025-04-27 18:09] VITALS: BP 159/110; PULSE 98; RESP 16; TEMP 36.9; O2SAT 98; BMI 22.7
--- NOTE | 2025-04-27 18:19 | XR_ITS ---
Examination: Abdomen sonogram, Limited Date and time of exam: April 27, 2025, 1913 hours INDICATIONS: Mid and lower abdominal pain beginning 3 days ago Technique: Real-time de [place] rosa scale transabdominal sonographic images of the upper abdomen obtained. Findings: Normal gallbladder Normal common bile duct 0.3 cm Pancreatic head 2.2 cm Liver 13.2 cm no liver lesions Normal hepatopetal portal venous flow Patent IVC IMPRESSION: Normal gallbladder Normal common bile duct
--- NOTE | 2025-04-27 18:19 | EKG_ITS ---
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
[2025-04-27 18:51] LABS: Collection Type, Urine Voided
[2025-04-27 18:57] LABS: Bilirubin,Urine Negative (Negative); Blood,Urine Negative (Negative); Clarity,Urine Clear (Clear/Hazy); Color,Urine Yellow (Lt Yel-Yel); Glucose, Urine Negative (Negative); Ketones,Urine 2+ (Negative); Leukocyte Esterase,Urine Negative (Negative); Nitrite,Urine Negative (Negative); PH,Urine 6.5 (5.0-7.0); Protein,Urine 1+ (Neg - Trace); RBC,Urine 1 /hpf (0-3); Specific Gravity,Urine 1.030 (1.001-1.035); Squamous Epithelial Cell,Urine < 1 /hpf (0-5); Urobilinogen,Urine Negative mg/dL (0.0-1.0); WBC,Urine 7 /hpf (0-5)
[2025-04-27 19:00] LABS: Troponin I < 0.020 ng/mL (0.0-0.045)
--- NOTE | 2025-04-27 19:44 | PD.EDABDPN ---
ED Abdominal Pain RME/HPI General Chief Complaint: Abdominal Pain Stated complaint: ABD PAIN, SOB Time seen by provider: 04/27/25 17:46 Arrival date/time: 04/27/25 17:35 This is a case of 39-year-old male with history of substance abuse anxiety multiple visits here in the emergency room GERD chest pain methamphetamine abuse came in in the emergency room due to abdominal pain mostly in the epigastric area with nausea and vomiting once nonprojectile patient denies any chest pain but with mild shortness of breath patient was seen twice today and was treated with respiratory infection patient due to persistence of the symptoms this patient decided to sought consult here in the emergency room Limitations: no limitations Related Data Previous Rx's ?Medication ?Instructions ?Recorded cetirizine 5 mg-pseudoephedrine ER 1 tab PO BID PRN sinus symptoms 08/30/21 120 mg tablet,extended #14 tabs release,12hr (Zyrtec-D) diphenhydramine HCl 25 mg capsule 25 mg PO Q8H PRN allergic symptoms 09/23/22 (Benadryl) #30 caps ibuprofen 600 mg tablet 600 mg PO QID PRN pain #20 tabs 09/23/22 ciprofloxacin HCl 500 mg tablet 500 mg PO BID #14 tabs 11/29/22 (Cipro) dicyclomine 20 mg tablet 20 mg PO BID #20 tabs 11/29/22 metronidazole 500 mg tablet 500 mg PO BID #14 tabs 11/29/22 cyclobenzaprine 7.5 mg tablet 7.5 mg PO TID PRN muscle spasm #30 12/03/22 tabs hydrocodone 5 mg-acetaminophen 325 1 tab PO BID PRN pain #14 tabs 01/16/23 mg tablet hydroxyzine HCl 50 mg tablet 50 mg PO Q6H PRN anxiety #20 tabs 01/18/24 amoxicillin 875 mg-potassium 1 tab PO BID #14 tabs 02/07/24 clavulanate 125 mg tablet acetaminophen 325 mg tablet 650 mg (2 x 325 mg) PO TID PRN 02/11/24 pain #30 tabs ibuprofen 600 mg tablet 600 mg PO Q8H PRN pain #30 tabs 02/11/24 ibuprofen 600 mg tablet 600 mg PO Q8H PRN pain #14 tabs 02/15/24 lidocaine 5 % topical patch 2 patch topical QDAY PRN pain #30 02/15/24 (Lidoderm) ea acetaminophen 500 mg tablet 500 mg PO Q6H PRN pain #30 tabs 09/15/24 tizanidine 4 mg tablet 4 mg PO BID PRN muscle spasticity 09/15/24 #20 tabs sumatriptan succinate 25 mg tablet 25 mg PO Q2H PRN migraine headache 10/08/24 (Imitrex) #10 tabs albuterol sulfate 90 mcg/actuation 1 inh inhalation Q4H PRN shortness 11/06/24 aerosol inhaler (Ventolin HFA) of breath or wheezing #8.5 grams hydroxyzine pamoate 25 mg capsule 25 mg PO BID PRN anxiety #10 caps 11/06/24 ibuprofen 800 mg tablet 800 mg PO Q8H PRN pain #20 tabs 12/21/24 ondansetron 4 mg disintegrating 4 mg PO Q8H PRN nausea and 12/21/24 tablet vomiting #20 tabs dicyclomine 20 mg tablet 20 mg PO QID PRN abdominal pain 12/27/24 #30 tabs cephalexin 500 mg capsule 500 mg PO QID #40 caps 12/28/24 albuterol sulfate 90 mcg/actuation 2 puff inhalation Q6H PRN 01/03/25 aerosol inhaler (Ventolin HFA) shortness of breath or wheezing #8.5 grams ondansetron 4 mg disintegrating 4 mg PO Q8H PRN nausea and 01/03/25 tablet vomiting #20 tabs amoxicillin 875 mg-potassium 1 tab PO BID #20 tabs 01/16/25 clavulanate 125 mg tablet ibuprofen 200 mg-phenylephrine HCl 1 tab PO Q4H PRN sinus symptoms 01/16/25 10 mg tablet (Sudafed PE Head #20 tabs Congestion-Pain) lidocaine HCl 2 % mucosal solution 10 ml PO Q4H PRN sore throat #100 01/16/25 (Lidocaine Viscous) mL ondansetron 4 mg disintegrating 4 mg PO Q8H PRN nausea and 01/16/25 tablet vomiting #10 tabs cephalexin 500 mg capsule 500 mg PO QID #28 caps 01/18/25 triamcinolone acetonide 0.025 % 1 applic topical BID #15 grams 01/18/25 topical ointment dicyclomine 20 mg tablet 20 mg PO BID #6 tabs 01/30/25 diphenhydramine HCl 2 % topical 1 applic topical BID PRN skin 02/11/25 gel (Benadryl) irritation #103 mL ibuprofen 600 mg tablet 600 mg PO Q6H #30 tabs 03/10/25 dicyclomine 20 mg tablet 20 mg PO TID PRN abdominal pain 03/13/25 #20 tabs omeprazole 20 mg capsule,delayed 20 mg PO BID #30 caps 03/13/25 release ondansetron 4 mg disintegrating 4 mg PO Q8H #20 tabs 03/13/25 tablet albuterol sulfate 90 mcg/actuation 2 puff inhalation Q6H PRN 03/27/25 aerosol inhaler (Ventolin HFA) shortness of breath or wheezing #8.5 grams albuterol sulfate 90 mcg/actuation 2 puff inhalation Q6H PRN 04/27/25 aerosol inhaler shortness of breath or wheezing #8.5 grams azithromycin 500 mg tablet 500 mg PO QDAY 3 days #3 tabs 04/27/25 (Zithromax TRI-DARWIN) cephalexin 500 mg capsule 500 mg PO QID #40 caps 04/27/25 famotidine 20 mg tablet (Pepcid) 20 mg PO BID 30 days #60 tabs 04/27/25 ondansetron 4 mg disintegrating 4 mg PO Q8H #20 tabs 04/27/25 tablet Allergies Allergy/AdvReac Type Severity Reaction Status Date / Time No Known Allergies Allergy Verified 04/27/25 17:38 Review of Systems Review of Systems Systems Reviewed: All systems reviewed, normal except as documented Past Medical History Past Medical History NEUROLOGIC: Negative Neurological Disorders or Seizures CARDIAC: Negative Cardiac Disorders or Congestive Heart Failure RESPIRATORY: Negative Chronic Obstructive Pulmonary Disease (COPD) or Asthma GASTROINTESTINAL: Negative Gastrointestinal Disorders GENITOURINARY: Negative Genitourinary Disorders or Renal Disease MUSCULOSKELETAL: Negative Musculoskeletal Disorders ENDOCRINE: Negative Endocrine Disorders, Diabetes Mellitus Type 1 or Diabetes Mellitus Type 2 HEMATOLOGIC: Negative Blood Disorders or Sickle Cell Disease PSYCHO/SOCIAL: Positive Recreational Drug Use OTHER HISTORY: Positive Chicken Pox; Negative Hospitalization, Blood Transfusions, Blood Transfusion Reaction, Anesthesia Reactions or Cancer Social History SMOKING STATUS: Never smoker SUBSTANCE USE: methamphetamine ED Exam General Limitations: Present no limitations General appearance: Present alert, in no apparent distress and other (Patient is awake alert oriented not in distress nontoxic looking well-hydrated well-nourished) Head Head exam: Present atraumatic, normocephalic and normal inspection Eye Eye exam: Present normal appearance, PERRL and EOMI ENT ENT exam: Present normal exam, normal oropharynx, mucous membranes moist and other (HEENT exam is normal and unremarkable) Neck Neck exam: Present normal inspection, full ROM and trachea midline; Absent tenderness, meningismus, lymphadenopathy or thyromegaly Chest Chest inspection: Present normal inspection and symmetric chest wall rise; Absent tenderness Respiratory Respiratory exam: Present normal lung sounds bilaterally and other (No rhonchi no crackles no rales no retraction); Absent respiratory distress, wheezes, stridor, accessory muscle use or prolonged expiratory phase Cardiovascular Cardiovascular exam: Present regular rate, normal rhythm and normal heart sounds; Absent bradycardia, tachycardia, systolic murmur or diastolic murmur Abdominal Exam Abdominal exam: Present soft, tenderness (Mild tenderness epigastric area no CVA tenderness bladder is not distended not tender) and normal bowel sounds; Absent distention, guarding, rebound, rigidity, diminished bowel sounds, hypoactive bowel sounds, organomegaly, psoas sign, obturator sign, Warner's sign, Rovsing's sign, tenderness at McBurney's Point or hernia Abdominal tenderness: Present epigastrium and mild Extremities Exam Extremities exam: Present normal inspection and full ROM Back Exam Back exam: Present normal inspection and full ROM Neurological Exam Neurological exam: Present alert, oriented X3, CN II-XII intact, normal gait and reflexes normal; Absent motor sensory deficit Psychiatric Psychiatric exam: Present normal affect and normal mood Skin Skin exam: Present warm, dry, intact, normal color and other (Excellent skin turgor) Course Quality Measures none Orders Category Date Time Status EKG (ED ONLY) *Do not use* NOW Care 04/27/25 18:19 Completed EKG (ED Only) Stat Exams 04/27/25 18:19 Draft US gall bladder Stat Exams 04/27/25 18:19 Completed Troponin I Stat Lab 04/27/25 18:25 Completed Urinalysis Stat Lab 04/27/25 18:40 Completed Ondansetron Odt [Zofran Odt] Med 04/27/25 19:39 Discontinued 4 mg PO X1 ONE Pantoprazole [Protonix] Med 04/27/25 19:39 Discontinued 40 mg PO X1 ONE cephALEXin [Keflex] Med 04/27/25 19:39 Discontinued 500 mg PO X1 ONE Vital Signs Vital signs: Vital Signs Temperature 98.4 F 04/27/25 18:09 Pulse Rate 98 04/27/25 18:09 Respiratory Rate 16 04/27/25 18:09 Blood Pressure 159/110 H 04/27/25 18:09 Pulse Oximetry (%) 98 04/27/25 18:09 Oxygen Delivery Method Room Air 04/27/25 18:09 Oxygen saturation is 98% in room air Abdominal Pain MDM MDM Narrative MDM Narrative:: This is a case of 39-year-old male with history of substance abuse anxiety multiple visits here in the emergency room GERD chest pain methamphetamine abuse came in in the emergency room due to abdominal pain mostly in the epigastric area with nausea and vomiting once nonprojectile patient denies any chest pain but with mild shortness of breath patient was seen twice today and was treated with respiratory infection patient due to persistence of the symptoms this patient decided to sought consult here in the emergency room physical examination patient is awake alert oriented not in distress nontoxic looking well-hydrated no well-nourished patient vital signs stable BP stable not tachycardic not tachypneic BP is slightly elevated 159/100 I rechecked my soft blood pressure and noted to be 135/95 patient is afebrile oxygen saturation is 98% in room air patient lung sounds is clear no crackles no wheezing no retraction no stridor heart normal rate regular rhythm no murmur no pitting edema there is mild tenderness in the epigastric area no guarding no rebound no rigidity negative psoas negative straight or negative Rovsing's negative McBurney's negative Warner sign negative CVA tenderness based on my physical examination and history patient symptoms possible due to gastritis EKG is normal and troponin is negative I reviewed the blood test that was done this morning everything were normal no leukocytosis no anemia kidney liver function is normal no electrolyte imbalance urinalysis showed WBC in the urine suggestive of urinary tract infection at this point patient will be discharged with cephalexin for UTI I gave Zofran and Pepcid for nausea vomiting and gastritis he was advised to follow-up with PCP to be referred to sales and marketing representative for any worsening symptoms or any emergent concern return to emergency room in the emergency room was advised no signs and symptoms sepsis dehydration no acute abdomen no hypoxia Patient was discharged with comfortable condition walking with stable gait. Patient verbalized no further complains explained diagnosis and answered patient question. Patient is comfortable with the proposed management plan including the need to follow up with his/her primary care physician and any specialist if applicable Discussed patient for any urgent condition or worsening sx, He/She needed to go to emergency room immediately or call 911. Patient acknowledge the responsibility to follow up as instructed and to monitor her/his symptoms. For any persistence of the symptoms for more than 3-5 days return precaution advised. Discussed the result of the test and was given printed discharge instruction Patient data External records reviewed:: [facility] previous records Clinical information provided by:: patient Social determinants that could affect healthcare access:: none Patient has the following chronic illnesses:: None How is presenting disease/condition affected by chronic disease/condition?: no chronic disease Evaluation data The following diagnostics were reviewed and interpreted by me:: lab results, radiology exam(s) and EKG tracing(s) Lab and/or radiology exams considered but not ordered:: Reviewed Interpretation Summary: Reviewed Medications / Prescriptions Medications or Prescriptions considered but not ordered:: Given Medication administrations:: Medication Administration History Discontinued Medications Cephalexin HCl (Cephalexin 250 Mg Capsule) 500 mg PO X1 ONE Stop: 04/27/25 19:40 Ondansetron HCl (Ondansetron Odt 4 Mg Tabrap) 4 mg PO X1 ONE; Protocol Stop: 04/27/25 19:40 Pantoprazole Sodium (Pantoprazole 40 Mg Tablet) 40 mg PO X1 ONE Stop: 04/27/25 19:40 Given Consultations Consultation(s) initiated? (list below): No Diagnosis Differential diagnosis abdominal pain: abdominal pain, gastroenteritis, pancreatitis and other (Gastritis cholelithiasis) Most likely diagnosis given after review of the tests above:: Gastritis Admission Indicated Admission indicated?: not indicated Explain why admission is indicated or not indicated:: Not indicated Admission Request Was there a request for admission?: No Admission Attestation Admission request attestation: Not indicated Disposition Plan Disposition Plan: Discharge Discharge Attestation Discharge Attestation: The patient and all family members were given an opportunity to ask questions and understood the discharge instructions. Discharge instructions specifically effects, indications for sooner follow up or return to the emergency department, and the expected course of current diagnosis. Patient condition: Stable Discharge Plan Plan Patient Disposition: HOME (Self Care) Patient condition on transfer: Stable Prescriptions/Referrals Prescriptions/Med Rec: New cephalexin 500 mg capsule 500 mg PO QID Qty: 40 0RF famotidine [Pepcid] 20 mg tablet 20 mg PO BID 30 Days Qty: 60 0RF ondansetron 4 mg tablet,disintegrating 4 mg PO Q8H Qty: 20 0RF No Action cetirizine-pseudoephedrine [Zyrtec-D] 5-120 mg tablet extended release 12 hr 1 tab PO BID PRN (Reason: sinus symptoms) Qty: 14 0RF diphenhydramine HCl [Benadryl] 25 mg capsule 25 mg PO Q8H PRN (Reason: allergic symptoms) Qty: 30 0RF ibuprofen 600 mg tablet 600 mg PO QID PRN (Reason: pain) Qty: 20 0RF ciprofloxacin HCl [Cipro] 500 mg tablet 500 mg PO BID Qty: 14 0RF metronidazole 500 mg tablet 500 mg PO BID Qty: 14 0RF dicyclomine 20 mg tablet 20 mg PO BID Qty: 20 0RF hydroxyzine HCl 50 mg tablet 50 mg PO Q6H PRN (Reason: anxiety) Qty: 20 0RF amoxicillin-pot clavulanate 875-125 mg tablet 1 tab PO BID Qty: 14 0RF ibuprofen 600 mg tablet 600 mg PO Q8H PRN (Reason: pain) Qty: 30 0RF acetaminophen 325 mg tablet 650 mg PO TID PRN (Reason: pain) Qty: 30 0RF lidocaine [Lidoderm] 5 % adhesive patch,medicated 2 patch topical QDAY PRN (Reason: pain) Qty: 30 0RF Rx Instructions: leave on most painful area for up to 12 hrs ibuprofen 600 mg tablet 600 mg PO Q8H PRN (Reason: pain) Qty: 14 0RF tizanidine 4 mg tablet 4 mg PO BID PRN (Reason: muscle spasticity) Qty: 20 0RF acetaminophen 500 mg tablet 500 mg PO Q6H PRN (Reason: pain) Qty: 30 0RF hydroxyzine pamoate 25 mg capsule 25 mg PO BID PRN (Reason: anxiety) Qty: 10 0RF albuterol sulfate [Ventolin HFA] 90 mcg/actuation HFA aerosol inhaler 1 inh inhalation Q4H PRN (Reason: shortness of breath or wheezing) Qty: 8.5 0RF amoxicillin-pot clavulanate 875-125 mg tablet 1 tab PO BID Qty: 20 0RF lidocaine HCl [Lidocaine Viscous] 2 % solution 10 ml PO Q4H PRN (Reason: sore throat) Qty: 100 0RF ondansetron 4 mg tablet,disintegrating 4 mg PO Q8H PRN (Reason: nausea and vomiting) Qty: 10 0RF Sudafed PE Head Congestn-Pain 200-10 mg tablet 1 tab PO Q4H PRN (Reason: sinus symptoms) Qty: 20 0RF Benadryl 2 % gel 1 applic topical BID PRN (Reason: skin irritation) Qty: 103 0RF ibuprofen 600 mg tablet 600 mg PO Q6H Qty: 30 0RF omeprazole 20 mg capsule,delayed release(DR/EC) 20 mg PO BID Qty: 30 0RF ondansetron 4 mg tablet,disintegrating 4 mg PO Q8H Qty: 20 0RF albuterol sulfate [Ventolin HFA] 90 mcg/actuation HFA aerosol inhaler 2 puff inhalation Q6H PRN (Reason: shortness of breath or wheezing) Qty: 8.5 0RF albuterol sulfate 90 mcg/actuation HFA aerosol inhaler 2 puff inhalation Q6H PRN (Reason: shortness of breath or wheezing) Qty: 8.5 0RF azithromycin [Zithromax TRI-DARWIN] 500 mg tablet 500 mg PO QDAY 3 Days Qty: 3 0RF cyclobenzaprine 7.5 mg tablet 7.5 mg PO TID PRN (Reason: muscle spasm) Qty: 30 0RF hydrocodone-acetaminophen 5-325 mg tablet 1 tab PO BID MDD 10 PRN (Reason: pain) Qty: 14 0RF sumatriptan succinate [Imitrex] 25 mg tablet 25 mg PO Q2H PRN (Reason: migraine headache) Qty: 10 0RF Rx Instructions: do not exceed 8 doses per 24 hrs ondansetron 4 mg tablet,disintegrating 4 mg PO Q8H PRN (Reason: nausea and vomiting) Qty: 20 0RF ibuprofen 800 mg tablet 800 mg PO Q8H PRN (Reason: pain) Qty: 20 0RF dicyclomine 20 mg tablet 20 mg PO QID PRN (Reason: abdominal pain) Qty: 30 0RF cephalexin 500 mg capsule 500 mg PO QID Qty: 40 0RF ondansetron 4 mg tablet,disintegrating 4 mg PO Q8H PRN (Reason: nausea and vomiting) Qty: 20 0RF albuterol sulfate [Ventolin HFA] 90 mcg/actuation HFA aerosol inhaler 2 puff inhalation Q6H PRN (Reason: shortness of breath or wheezing) Qty: 8.5 0RF triamcinolone acetonide 0.025 % ointment 1 applic topical BID Qty: 15 0RF cephalexin 500 mg capsule 500 mg PO QID Qty: 28 0RF dicyclomine 20 mg tablet 20 mg PO BID Qty: 6 0RF dicyclomine 20 mg tablet 20 mg PO TID PRN (Reason: abdominal pain) Qty: 20 0RF Referrals: No Primary/Family,Physician [Primary Care Provider] - In 1 week Problem List Clinical Impression: Abdominal pain, Gastritis, Urinary tract infection Patient/Caregiver Discharge Instructions Education Materials: Abdominal Pain, Urinary Tract Infections in Men, ED Gastritis (Adult) Additional Instructions: Follow-up with your primary care physician in 2 days for reevaluation and to be referred to sales and marketing representative for further evaluation and treatment of gastritis for possible EGD recurrence persistent worsening symptoms or any emergent concern call 911 or go to the nearest emergency room take your medication as directed finish the course of antibiotic keep hydrated Pedialyte Gatorade for hydration avoid skipping of meals avoid fatty fried high cholesterol food avoid spicy food avoid alcohol soda coffee Print Language: Tongan Stand Alone Forms: [employer] Award Info., Patient Portal Info Letter PA/CESAR Supervising Physician PA/CESAR Supervising Physician: dr boston
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
== END 2025-04-27 19:52 | disposition left against medical advice (07) ==
PROVIDERS: Nurse Practitioner Family; Emergency Provider Family Medicine
DX: N39.0 Urinary tract infection, site not specified (principal); K29.70 Gastritis, unspecified, without bleeding; K21.9 Gastro-esophageal reflux disease without esophagitis; F15.10 Other stimulant abuse, uncomplicated; F41.9 Anxiety disorder, unspecified
CPT/HCPCS: 36415; 76705; 81001; 84484; 93005; 99283

== ENCOUNTER 2025-04-27 21:48 | Emergency (ER) | payer MEDICAID, SELFPAY ==
[2025-04-27 21:49] VITALS: PULSE 90; O2SAT 99
[2025-04-27 21:57] VITALS: BP 149/89; PULSE 78; RESP 20; TEMP 36.9; O2SAT 100
--- NOTE | 2025-04-27 21:59 | PD.EDABDPN ---
ED Abdominal Pain RME/HPI General Chief Complaint: Abdominal Pain Stated complaint: ABD PAIN Time seen by provider: 04/27/25 21:55 Arrival date/time: 04/27/25 21:48 This is a case of 39-year-old male who have history of gastritis substance abuse methamphetamine abuse anxiety with multiple visits here in the emergency room patient was here 1 hour ago and was discharged by me discharged with abdominal pain gastritis and urinary tract infection patient came back only wanted to have the results of his ultrasound of the gallbladder which is everything is normal patient was discharged with Pepcid Zofran and cephalexin for gastritis and for urinary tract infection patient states that he has only mild abdominal pain no nausea no vomiting no constipation no diarrhea Limitations: no limitations Related Data Previous Rx's ?Medication ?Instructions ?Recorded cetirizine 5 mg-pseudoephedrine ER 1 tab PO BID PRN sinus symptoms 08/30/21 120 mg tablet,extended #14 tabs release,12hr (Zyrtec-D) diphenhydramine HCl 25 mg capsule 25 mg PO Q8H PRN allergic symptoms 09/23/22 (Benadryl) #30 caps ibuprofen 600 mg tablet 600 mg PO QID PRN pain #20 tabs 09/23/22 ciprofloxacin HCl 500 mg tablet 500 mg PO BID #14 tabs 11/29/22 (Cipro) dicyclomine 20 mg tablet 20 mg PO BID #20 tabs 11/29/22 metronidazole 500 mg tablet 500 mg PO BID #14 tabs 11/29/22 cyclobenzaprine 7.5 mg tablet 7.5 mg PO TID PRN muscle spasm #30 12/03/22 tabs hydrocodone 5 mg-acetaminophen 325 1 tab PO BID PRN pain #14 tabs 01/16/23 mg tablet hydroxyzine HCl 50 mg tablet 50 mg PO Q6H PRN anxiety #20 tabs 01/18/24 amoxicillin 875 mg-potassium 1 tab PO BID #14 tabs 02/07/24 clavulanate 125 mg tablet acetaminophen 325 mg tablet 650 mg (2 x 325 mg) PO TID PRN 02/11/24 pain #30 tabs ibuprofen 600 mg tablet 600 mg PO Q8H PRN pain #30 tabs 02/11/24 ibuprofen 600 mg tablet 600 mg PO Q8H PRN pain #14 tabs 10/13/24 lidocaine 5 % topical patch 2 patch topical QDAY PRN pain #30 02/15/24 (Lidoderm) ea acetaminophen 500 mg tablet 500 mg PO Q6H PRN pain #30 tabs 09/15/24 tizanidine 4 mg tablet 4 mg PO BID PRN muscle spasticity 09/15/24 #20 tabs sumatriptan succinate 25 mg tablet 25 mg PO Q2H PRN migraine headache 10/08/24 (Imitrex) #10 tabs albuterol sulfate 90 mcg/actuation 1 inh inhalation Q4H PRN shortness 11/06/24 aerosol inhaler (Ventolin HFA) of breath or wheezing #8.5 grams hydroxyzine pamoate 25 mg capsule 25 mg PO BID PRN anxiety #10 caps 11/06/24 ibuprofen 800 mg tablet 800 mg PO Q8H PRN pain #20 tabs 12/21/24 ondansetron 4 mg disintegrating 4 mg PO Q8H PRN nausea and 12/21/24 tablet vomiting #20 tabs dicyclomine 20 mg tablet 20 mg PO QID PRN abdominal pain 12/27/24 #30 tabs cephalexin 500 mg capsule 500 mg PO QID #40 caps 12/28/24 albuterol sulfate 90 mcg/actuation 2 puff inhalation Q6H PRN 01/03/25 aerosol inhaler (Ventolin HFA) shortness of breath or wheezing #8.5 grams ondansetron 4 mg disintegrating 4 mg PO Q8H PRN nausea and 01/03/25 tablet vomiting #20 tabs amoxicillin 875 mg-potassium 1 tab PO BID #20 tabs 01/16/25 clavulanate 125 mg tablet ibuprofen 200 mg-phenylephrine HCl 1 tab PO Q4H PRN sinus symptoms 01/16/25 10 mg tablet (Sudafed PE Head #20 tabs Congestion-Pain) lidocaine HCl 2 % mucosal solution 10 ml PO Q4H PRN sore throat #100 01/16/25 (Lidocaine Viscous) mL ondansetron 4 mg disintegrating 4 mg PO Q8H PRN nausea and 01/16/25 tablet vomiting #10 tabs cephalexin 500 mg capsule 500 mg PO QID #28 caps 01/18/25 triamcinolone acetonide 0.025 % 1 applic topical BID #15 grams 01/18/25 topical ointment dicyclomine 20 mg tablet 20 mg PO BID #6 tabs 01/30/25 diphenhydramine HCl 2 % topical 1 applic topical BID PRN skin 02/11/25 gel (Benadryl) irritation #103 mL ibuprofen 600 mg tablet 600 mg PO Q6H #30 tabs 03/10/25 dicyclomine 20 mg tablet 20 mg PO TID PRN abdominal pain 03/13/25 #20 tabs omeprazole 20 mg capsule,delayed 20 mg PO BID #30 caps 03/13/25 release ondansetron 4 mg disintegrating 4 mg PO Q8H #20 tabs 03/13/25 tablet albuterol sulfate 90 mcg/actuation 2 puff inhalation Q6H PRN 03/27/25 aerosol inhaler (Ventolin HFA) shortness of breath or wheezing #8.5 grams albuterol sulfate 90 mcg/actuation 2 puff inhalation Q6H PRN 04/27/25 aerosol inhaler shortness of breath or wheezing #8.5 grams azithromycin 500 mg tablet 500 mg PO QDAY 3 days #3 tabs 04/27/25 (Zithromax TRI-DARWIN) cephalexin 500 mg capsule 500 mg PO QID #40 caps 04/27/25 famotidine 20 mg tablet (Pepcid) 20 mg PO BID 30 days #60 tabs 04/27/25 ondansetron 4 mg disintegrating 4 mg PO Q8H #20 tabs 04/27/25 tablet Allergies Allergy/AdvReac Type Severity Reaction Status Date / Time No Known Allergies Allergy Verified 04/27/25 17:38 Review of Systems Review of Systems Systems Reviewed: All systems reviewed, normal except as documented Past Medical History Past Medical History NEUROLOGIC: Negative Neurological Disorders or Seizures CARDIAC: Negative Cardiac Disorders or Congestive Heart Failure RESPIRATORY: Negative Chronic Obstructive Pulmonary Disease (COPD) or Asthma GASTROINTESTINAL: Negative Gastrointestinal Disorders GENITOURINARY: Negative Genitourinary Disorders or Renal Disease MUSCULOSKELETAL: Negative Musculoskeletal Disorders ENDOCRINE: Negative Endocrine Disorders, Diabetes Mellitus Type 1 or Diabetes Mellitus Type 2 HEMATOLOGIC: Negative Blood Disorders or Sickle Cell Disease PSYCHO/SOCIAL: Positive Recreational Drug Use OTHER HISTORY: Positive Chicken Pox; Negative Hospitalization, Blood Transfusions, Blood Transfusion Reaction, Anesthesia Reactions or Cancer Social History SMOKING STATUS: Never smoker SUBSTANCE USE: methamphetamine ED Exam General Limitations: Present no limitations General appearance: Present alert, in no apparent distress and other (Patient is awake alert oriented not in distress nontoxic looking well-hydrated well nourished) Head Head exam: Present atraumatic and normocephalic Eye Eye exam: Present normal appearance, PERRL and EOMI ENT ENT exam: Present normal exam, normal oropharynx and mucous membranes moist Neck Neck exam: Present normal inspection, full ROM and trachea midline; Absent tenderness, meningismus, lymphadenopathy or thyromegaly Chest Chest inspection: Present normal inspection and symmetric chest wall rise; Absent tenderness Respiratory Respiratory exam: Present normal lung sounds bilaterally; Absent respiratory distress, wheezes, stridor, accessory muscle use or prolonged expiratory phase Cardiovascular Cardiovascular exam: Present regular rate, normal rhythm and normal heart sounds; Absent bradycardia or diastolic murmur Abdominal Exam Abdominal exam: Present soft, normal bowel sounds and other (No CVA tenderness bilaterally); Absent distention, tenderness, guarding, rebound, rigidity, diminished bowel sounds, hyperactive bowel sounds, hypoactive bowel sounds, organomegaly, psoas sign, obturator sign, Warner's sign, Rovsing's sign or tenderness at McBurney's Point Extremities Exam Extremities exam: Present normal inspection and full ROM Back Exam Back exam: Present normal inspection and full ROM Neurological Exam Neurological exam: Present alert, oriented X3, CN II-XII intact, normal gait and reflexes normal; Absent motor sensory deficit Psychiatric Psychiatric exam: Present normal affect and normal mood Skin Skin exam: Present warm, dry, intact, normal color and other (Excellent skin turgor) Course Quality Measures none Vital Signs Vital signs: Vital Signs Temperature 98.5 F 04/27/25 21:57 Pulse Rate 78 04/27/25 21:57 Respiratory Rate 20 04/27/25 21:57 Blood Pressure 149/89 H 04/27/25 21:57 Pulse Oximetry (%) 100 04/27/25 21:57 Oxygen Delivery Method Room Air 04/27/25 21:57 Oxygen saturation is 100% normal Abdominal Pain MDM MDM Narrative MDM Narrative:: This is a case of 39-year-old male who have history of gastritis substance abuse methamphetamine abuse anxiety with multiple visits here in the emergency room patient was here 1 hour ago and was discharged by me discharged with abdominal pain gastritis and urinary tract infection patient came back only wanted to have the results of his ultrasound of the gallbladder which is everything is normal patient was discharged with Pepcid Zofran and cephalexin for gastritis and for urinary tract infection patient states that he has only mild abdominal pain no nausea no vomiting no constipation no diarrhea physical examination patient is awake alert oriented not in distress nontoxic looking well-hydrated well-nourished patient vital signs BP stable 149/89 not tachycardic not tachypneic afebrile and nonhypoxic lungs sound is clear no crackles no rales no retraction no stridor heart normal rate regular rhythm no murmur abdominal exam is benign nonsurgical no guarding no rebound no tenderness negative psoas negative straight or negative Rovsing's negative McBurney's negative Warner sign negative CVA tenderness at this point there is nothing that we need to do I discussed and instructed again the patient on his discharge instruction he will follow-up with PCP to be referred to [facility] distribution for his gastritis modified diet finish the course of antibiotic for his urinary tract infection and keep hydrated for any worsening symptoms any emergent concern return precaution in the ER is advised Patient was discharged with comfortable condition walking with stable gait. Patient verbalized no further complains explained diagnosis and answered patient question. Patient is comfortable with the proposed management plan including the need to follow up with his/her primary care physician and any specialist if applicable Discussed patient for any urgent condition or worsening sx, He/She needed to go to emergency room immediately or call 911. Patient acknowledge the responsibility to follow up as instructed and to monitor her/his symptoms. For any persistence of the symptoms for more than 3-5 days return precaution advised. Discussed the result of the test and was given printed discharge instruction Patient data External records reviewed:: [facility] previous records Clinical information provided by:: patient Social determinants that could affect healthcare access:: none Patient has the following chronic illnesses:: None How is presenting disease/condition affected by chronic disease/condition?: no chronic disease Evaluation data The following diagnostics were reviewed and interpreted by me:: other (specify) (None) Lab and/or radiology exams considered but not ordered:: None Interpretation Summary: None Medications / Prescriptions Medications or Prescriptions considered but not ordered:: Given Medication administrations:: Given Consultations Consultation(s) initiated? (list below): No Diagnosis Differential diagnosis abdominal pain: abdominal pain, acute appendicitis, calculus of kidney, diverticulitis, endometriosis, gastroenteritis, pancreatitis, small bowel obstruction and other (Gastritis) Most likely diagnosis given after review of the tests above:: Gastritis urinary tract infection Admission Indicated Admission indicated?: not indicated Explain why admission is indicated or not indicated:: Not indicated Admission Request Was there a request for admission?: No Admission Attestation Admission request attestation: Not indicated Disposition Plan Disposition Plan: Discharge Discharge Attestation Discharge Attestation: The patient and all family members were given an opportunity to ask questions and understood the discharge instructions. Discharge instructions specifically effects, indications for sooner follow up or return to the emergency department, and the expected course of current diagnosis. Patient condition: Stable Discharge Plan Plan Patient Disposition: HOME (Self Care) Patient condition on transfer: Stable Prescriptions/Referrals Prescriptions/Med Rec: No Action cetirizine-pseudoephedrine [Zyrtec-D] 5-120 mg tablet extended release 12 hr 1 tab PO BID PRN (Reason: sinus symptoms) Qty: 14 0RF diphenhydramine HCl [Benadryl] 25 mg capsule 25 mg PO Q8H PRN (Reason: allergic symptoms) Qty: 30 0RF ibuprofen 600 mg tablet 600 mg PO QID PRN (Reason: pain) Qty: 20 0RF ciprofloxacin HCl [Cipro] 500 mg tablet 500 mg PO BID Qty: 14 0RF metronidazole 500 mg tablet 500 mg PO BID Qty: 14 0RF dicyclomine 20 mg tablet 20 mg PO BID Qty: 20 0RF hydroxyzine HCl 50 mg tablet 50 mg PO Q6H PRN (Reason: anxiety) Qty: 20 0RF amoxicillin-pot clavulanate 875-125 mg tablet 1 tab PO BID Qty: 14 0RF ibuprofen 600 mg tablet 600 mg PO Q8H PRN (Reason: pain) Qty: 30 0RF acetaminophen 325 mg tablet 650 mg PO TID PRN (Reason: pain) Qty: 30 0RF lidocaine [Lidoderm] 5 % adhesive patch,medicated 2 patch topical QDAY PRN (Reason: pain) Qty: 30 0RF Rx Instructions: leave on most painful area for up to 12 hrs ibuprofen 600 mg tablet 600 mg PO Q8H PRN (Reason: pain) Qty: 14 0RF tizanidine 4 mg tablet 4 mg PO BID PRN (Reason: muscle spasticity) Qty: 20 0RF acetaminophen 500 mg tablet 500 mg PO Q6H PRN (Reason: pain) Qty: 30 0RF hydroxyzine pamoate 25 mg capsule 25 mg PO BID PRN (Reason: anxiety) Qty: 10 0RF albuterol sulfate [Ventolin HFA] 90 mcg/actuation HFA aerosol inhaler 1 inh inhalation Q4H PRN (Reason: shortness of breath or wheezing) Qty: 8.5 0RF amoxicillin-pot clavulanate 875-125 mg tablet 1 tab PO BID Qty: 20 0RF lidocaine HCl [Lidocaine Viscous] 2 % solution 10 ml PO Q4H PRN (Reason: sore throat) Qty: 100 0RF ondansetron 4 mg tablet,disintegrating 4 mg PO Q8H PRN (Reason: nausea and vomiting) Qty: 10 0RF Sudafed PE Head Congestn-Pain 200-10 mg tablet 1 tab PO Q4H PRN (Reason: sinus symptoms) Qty: 20 0RF Benadryl 2 % gel 1 applic topical BID PRN (Reason: skin irritation) Qty: 103 0RF ibuprofen 600 mg tablet 600 mg PO Q6H Qty: 30 0RF omeprazole 20 mg capsule,delayed release(DR/EC) 20 mg PO BID Qty: 30 0RF ondansetron 4 mg tablet,disintegrating 4 mg PO Q8H Qty: 20 0RF albuterol sulfate [Ventolin HFA] 90 mcg/actuation HFA aerosol inhaler 2 puff inhalation Q6H PRN (Reason: shortness of breath or wheezing) Qty: 8.5 0RF albuterol sulfate 90 mcg/actuation HFA aerosol inhaler 2 puff inhalation Q6H PRN (Reason: shortness of breath or wheezing) Qty: 8.5 0RF azithromycin [Zithromax TRI-DARWIN] 500 mg tablet 500 mg PO QDAY 3 Days Qty: 3 0RF cyclobenzaprine 7.5 mg tablet 7.5 mg PO TID PRN (Reason: muscle spasm) Qty: 30 0RF hydrocodone-acetaminophen 5-325 mg tablet 1 tab PO BID MDD 10 PRN (Reason: pain) Qty: 14 0RF sumatriptan succinate [Imitrex] 25 mg tablet 25 mg PO Q2H PRN (Reason: migraine headache) Qty: 10 0RF Rx Instructions: do not exceed 8 doses per 24 hrs ondansetron 4 mg tablet,disintegrating 4 mg PO Q8H PRN (Reason: nausea and vomiting) Qty: 20 0RF ibuprofen 800 mg tablet 800 mg PO Q8H PRN (Reason: pain) Qty: 20 0RF dicyclomine 20 mg tablet 20 mg PO QID PRN (Reason: abdominal pain) Qty: 30 0RF cephalexin 500 mg capsule 500 mg PO QID Qty: 40 0RF ondansetron 4 mg tablet,disintegrating 4 mg PO Q8H PRN (Reason: nausea and vomiting) Qty: 20 0RF albuterol sulfate [Ventolin HFA] 90 mcg/actuation HFA aerosol inhaler 2 puff inhalation Q6H PRN (Reason: shortness of breath or wheezing) Qty: 8.5 0RF triamcinolone acetonide 0.025 % ointment 1 applic topical BID Qty: 15 0RF cephalexin 500 mg capsule 500 mg PO QID Qty: 28 0RF dicyclomine 20 mg tablet 20 mg PO BID Qty: 6 0RF dicyclomine 20 mg tablet 20 mg PO TID PRN (Reason: abdominal pain) Qty: 20 0RF cephalexin 500 mg capsule 500 mg PO QID Qty: 40 0RF famotidine [Pepcid] 20 mg tablet 20 mg PO BID 30 Days Qty: 60 0RF ondansetron 4 mg tablet,disintegrating 4 mg PO Q8H Qty: 20 0RF Problem List Clinical Impression: Abdominal pain, Gastritis, Urinary tract infection Patient/Caregiver Discharge Instructions Education Materials: Abdominal Pain, Understanding Urinary Tract ..., ED Gastritis (Adult) Additional Instructions: Follow-up with your primary care physician in 2 days for reevaluation and to be referred to manager distribution for further evaluation and treatment of your gastritis recurrence persistent worsening symptoms or any emergent concern call 911 or go to the nearest emergency room take your medication as directed finish the course of antibiotic increase water intake keep hydrated Pedialyte Gatorade for hydration avoid skipping of meals avoid spicy food avoid alcohol soda coffee avoid fatty fried high cholesterol food Print Language: Northern Irish Stand Alone Forms: Selin Award Info., Patient Portal Info Letter PA/TREE FARMER Supervising Physician PA/TREE FARMER Supervising Physician: dr boston
== END 2025-04-27 22:15 | disposition home or self-care (01) ==
LOC: SERX 22:08
PROVIDERS: Emergency Provider Emergency Medicine
DX: K29.70 Gastritis, unspecified, without bleeding (principal); N39.0 Urinary tract infection, site not specified
CPT/HCPCS: 99281

== ENCOUNTER 2025-04-29 11:06 | Emergency (ER) | payer MEDICAID, SELFPAY ==
[2025-04-29 11:06] VITALS: PULSE 115; RESP 20; O2SAT 98; BMI 22.1
--- NOTE | 2025-04-29 12:15 | PD.EDRME ---
Rapid Medical Screening Exam RME Arrival date/time: 04/29/25 11:06 39-year-old male with no known medical history presents to the emergency room with a chief complaint of palpitations, back pain x 2 days I have greeted and performed a focused initial assessment of this patient. A comprehensive ED assessment and evaluation of the patient, analysis of all test results, and completion of the medical decision making process will be conducted by additional ED providers. Chief Complaint: Anxiety Time Seen by Provider: 04/29/25 11:49 Exam: Patient is fidgeting and very anxious Clear bilateral lung sounds Strong and regular rhythm Clinical Impression: Palpitations
[2025-04-29 13:07] LABS: Basophils # (Auto) 0.0 Thou/mm3 (0.0-0.2); Basophils % (Auto) 0 % (0-2.5); Eosinophils # (Auto) 0.0 Thou/mm3 (0.0-0.5); Eosinophils % (Auto) 0 % (0-10); Hematocrit 42.8 % (41.0-53.0); Hemoglobin 14.5 g/dL (13.5-16.0); Immature Granulocytes Auto 0.02 Thou/mm3 (0.00-0.00); Lymphocytes # (Auto) 1.1 Thou/mm3 (1.0-4.8); Lymphocytes % (Auto) 11 % (10-50); Mean Corpuscular HGB Conc 33.9 g/dl (31.0-37.0); Mean Corpuscular Hemoglobin 30.6 pg (25.0-35.0); Mean Corpuscular Volume 90 fL (80-100); Monocytes # (Auto) 0.7 Thou/mm3 (0.0-0.8); Monocytes % (Auto) 7 % (0-12); Neutrophils # (Auto) 8.3 Thou/mm3 (1.8-7.7); Neutrophils % (Auto) 82 % (37-80); Nucleated Red Blood Cell # 0.00 Thou/mm3 (0.00-0.00); Nucleated Red Blood Cell % 0 /100 WBC (0); Platelet Count 345 Thou/mm3 (140-440); RDW Standard Deviation 42.8 fL (35.1-43.9); Red Blood Count 4.74 Miln/mm3 (4.50-5.90); White Blood Count 10.1 Thou/mm3 (3.8-10.6)
[2025-04-29 13:26] LABS: Alanine Aminotransferase 16 U/L (10-49); Albumin, Serum 4.8 gm/dL (3.5-5.0); Albumin/Globulin Ratio 1.7 (1.2-2.2); Alkaline Phosphatase 85 U/L (46-116); Anion Gap 12 (7-16); Aspartate Amino Transferase 30 U/L (0-34); BUN/Creatinine Ratio 10 Ratio (12-20); Bilirubin,Total 0.7 mg/dL (0.3-1.2); Blood Urea Nitrogen 10 mg/dL (9-23); Calcium 9.3 mg/dL (8.3-10.6); Calcium (Corrected) 9.3 mg/dL (8.5-10.1); Carbon Dioxide 25.7 mMol/L (20.0-31.0); Chloride 104 mMol/L (98-107); Creatinine (Component) 1.0 mg/dL (0.6-1.3); Estimated Creatinine Clearance 97.3 mL/min (>60); Free T4 (Free Thyroxine) 1.40 ng/dL (0.89-1.76); Globulin 2.8 gm/dL (2.3-3.5); Glucose 104 mg/dL (74-106); Osmolality,Calculated 282 (275-295); Potassium 3.6 mMol/L (3.4-5.1); Sodium 142 mMol/L (136-145); Thyroid Stimulating Hormone 0.98 uIU/mL (0.55-4.78); Total Protein 7.6 gm/dL (5.7-8.2); eGFR > 60 See Note
[2025-04-29 13:34] LABS: B-Type Natriuretic Peptide < 20 pg/mL (0-100)
[2025-04-29 16:01] VITALS: BP 157/106; PULSE 96; RESP 19; TEMP 36.9; O2SAT 100
[2025-04-29 16:05] VITALS: BP 150/100; PULSE 111; RESP 20; TEMP 37; O2SAT 98
--- NOTE | 2025-04-29 16:14 | PD.EDANX ---
ED Anxiety RME/HPI General Chief Complaint: Anxiety Stated Complaint: ANXIETY Time Seen by Provider: 04/29/25 11:49 Arrival date/time: 04/29/25 11:06 39-year-old male patient who is known to this emergency room for coming here several times a week, came in for anxiety like symptoms been ongoing for a while getting worse today denies any homicidal or suicidal ideation. RME / HPI RME / HPI narrative: 04/29/25 11:06 39-year-old male with no known medical history presents to the emergency room with a chief complaint of palpitations, back pain x 2 days I have greeted and performed a focused initial assessment of this patient. A comprehensive ED assessment and evaluation of the patient, analysis of all test results, and completion of the medical decision making process will be conducted by additional ED providers. Exam: Patient is fidgeting and very anxious Clear bilateral lung sounds Strong and regular rhythm Impression: Palpitations Related Data Previous Rx's ?Medication ?Instructions ?Recorded cetirizine 5 mg-pseudoephedrine ER 1 tab PO BID PRN sinus symptoms 08/30/21 120 mg tablet,extended #14 tabs release,12hr (Zyrtec-D) diphenhydramine HCl 25 mg capsule 25 mg PO Q8H PRN allergic symptoms 09/23/22 (Benadryl) #30 caps ibuprofen 600 mg tablet 600 mg PO QID PRN pain #20 tabs 09/23/22 ciprofloxacin HCl 500 mg tablet 500 mg PO BID #14 tabs 11/29/22 (Cipro) dicyclomine 20 mg tablet 20 mg PO BID #20 tabs 11/29/22 metronidazole 500 mg tablet 500 mg PO BID #14 tabs 11/29/22 cyclobenzaprine 7.5 mg tablet 7.5 mg PO TID PRN muscle spasm #30 12/03/22 tabs hydrocodone 5 mg-acetaminophen 325 1 tab PO BID PRN pain #14 tabs 01/16/23 mg tablet hydroxyzine HCl 50 mg tablet 50 mg PO Q6H PRN anxiety #20 tabs 01/18/24 amoxicillin 875 mg-potassium 1 tab PO BID #14 tabs 02/07/24 clavulanate 125 mg tablet acetaminophen 325 mg tablet 650 mg (2 x 325 mg) PO TID PRN 02/11/24 pain #30 tabs ibuprofen 600 mg tablet 600 mg PO Q8H PRN pain #30 tabs 02/11/24 ibuprofen 600 mg tablet 600 mg PO Q8H PRN pain #14 tabs 02/15/24 lidocaine 5 % topical patch 2 patch topical QDAY PRN pain #30 02/15/24 (Lidoderm) ea acetaminophen 500 mg tablet 500 mg PO Q6H PRN pain #30 tabs 09/15/24 tizanidine 4 mg tablet 4 mg PO BID PRN muscle spasticity 09/15/24 #20 tabs sumatriptan succinate 25 mg tablet 25 mg PO Q2H PRN migraine headache 10/08/24 (Imitrex) #10 tabs albuterol sulfate 90 mcg/actuation 1 inh inhalation Q4H PRN shortness 11/06/24 aerosol inhaler (Ventolin HFA) of breath or wheezing #8.5 grams hydroxyzine pamoate 25 mg capsule 25 mg PO BID PRN anxiety #10 caps 11/06/24 ibuprofen 800 mg tablet 800 mg PO Q8H PRN pain #20 tabs 12/21/24 ondansetron 4 mg disintegrating 4 mg PO Q8H PRN nausea and 12/21/24 tablet vomiting #20 tabs dicyclomine 20 mg tablet 20 mg PO QID PRN abdominal pain 12/27/24 #30 tabs cephalexin 500 mg capsule 500 mg PO QID #40 caps 12/28/24 albuterol sulfate 90 mcg/actuation 2 puff inhalation Q6H PRN 01/03/25 aerosol inhaler (Ventolin HFA) shortness of breath or wheezing #8.5 grams ondansetron 4 mg disintegrating 4 mg PO Q8H PRN nausea and 01/03/25 tablet vomiting #20 tabs amoxicillin 875 mg-potassium 1 tab PO BID #20 tabs 01/16/25 clavulanate 125 mg tablet ibuprofen 200 mg-phenylephrine HCl 1 tab PO Q4H PRN sinus symptoms 01/16/25 10 mg tablet (Sudafed PE Head #20 tabs Congestion-Pain) lidocaine HCl 2 % mucosal solution 10 ml PO Q4H PRN sore throat #100 01/16/25 (Lidocaine Viscous) mL ondansetron 4 mg disintegrating 4 mg PO Q8H PRN nausea and 01/16/25 tablet vomiting #10 tabs cephalexin 500 mg capsule 500 mg PO QID #28 caps 01/18/25 triamcinolone acetonide 0.025 % 1 applic topical BID #15 grams 01/18/25 topical ointment dicyclomine 20 mg tablet 20 mg PO BID #6 tabs 01/30/25 diphenhydramine HCl 2 % topical 1 applic topical BID PRN skin 02/11/25 gel (Benadryl) irritation #103 mL ibuprofen 600 mg tablet 600 mg PO Q6H #30 tabs 03/10/25 dicyclomine 20 mg tablet 20 mg PO TID PRN abdominal pain 03/13/25 #20 tabs omeprazole 20 mg capsule,delayed 20 mg PO BID #30 caps 03/13/25 release ondansetron 4 mg disintegrating 4 mg PO Q8H #20 tabs 03/13/25 tablet albuterol sulfate 90 mcg/actuation 2 puff inhalation Q6H PRN 03/27/25 aerosol inhaler (Ventolin HFA) shortness of breath or wheezing #8.5 grams albuterol sulfate 90 mcg/actuation 2 puff inhalation Q6H PRN 04/27/25 aerosol inhaler shortness of breath or wheezing #8.5 grams azithromycin 500 mg tablet 500 mg PO QDAY 3 days #3 tabs 04/27/25 (Zithromax TRI-DARWIN) cephalexin 500 mg capsule 500 mg PO QID #40 caps 04/27/25 famotidine 20 mg tablet (Pepcid) 20 mg PO BID 30 days #60 tabs 04/27/25 ondansetron 4 mg disintegrating 4 mg PO Q8H #20 tabs 04/27/25 tablet Allergies Allergy/AdvReac Type Severity Reaction Status Date / Time No Known Allergies Allergy Verified 04/29/25 11:08 Review of Systems Review of Systems Narrative Review of Systems: Review of system reviewed and within normal limits except mentioned in HPI ED Exam Narrative Physical exam: VITAL SIGNS: Reviewed. GENERAL APPEARANCE: Alert and interactive, follows commands, no acute distress, anxious HEAD AND FACE: Non-traumatic. ENT: PERRL, pink conjunctivitis, eyelid no trauma, Mucous membrane moist. NECK: Supple, nontender, no nuchal rigidity. CHEST: No tenderness, no crepitus, no paradoxical movement, no retractions. LUNGS: Clear, well ventilated, symmetric, no rales, no wheezing, no ronchi, no stridor, good breath sounds bilaterally. HEART: Regular rate, regular rhythm, no murmur, no gallops. ABDOMEN: Soft, positive bowel sounds, nondistended, no guarding, nontender, no rebound, no masses, RECTAL: Deferred. GENITAL: Deferred. NEUROLOGICAL: Gross motor function intact sensory function intact, Appropriate for age. MUSCULOSKELETAL: low back nontender, full range of motion. EXTREMITIES: Nontender, full range of motion. SKIN: Color pink, dry, no rash, no lacerations, no abrasions, no contusions. LYMPHATICS: Deferred. Course Quality Measures none Orders Category Date Time Status B-Type Natriuretic Peptide Stat Lab 04/29/25 12:52 Completed CBC Stat Lab 04/29/25 12:52 Completed Comprehensive Metabolic Panel Stat Lab 04/29/25 12:52 Completed Drug Screen,Urine Stat Lab 04/29/25 12:14 Ordered Free T4 (Free Thyroxine) Stat Lab 04/29/25 12:52 Completed TSH [Thyroid Stimulating Hormone] Stat Lab 04/29/25 12:52 Completed Urinalysis, C/S if Indicated Stat Lab 04/29/25 12:14 Ordered Vital Signs Vital signs: Vital Signs Temperature 98.4 F 04/29/25 16:01 Pulse Rate 96 04/29/25 16:01 Respiratory Rate 19 04/29/25 16:01 Blood Pressure 157/106 H 04/29/25 16:01 Pulse Oximetry (%) 100 04/29/25 16:01 Oxygen Delivery Method Room Air 04/29/25 16:01 Anxiety MDM Narrative MDM Narrative: Patient's workup today all came back unremarkable. Patient was not discussed with him. He is stable for discharge home patient is asking for a ride home Patient data External records reviewed:: None Clinical information provided by:: patient Social determinants that could affect healthcare access:: none Patient has the following chronic illnesses:: Although pt's initial presentation was concerning, Pt now reports feeling better after Ativan and has an unremarkable vital signs. Stable for D/C. Hydroxyzine given as needed How is presenting disease/condition affected by chronic disease/condition?: exacerbated by Evaluation data The following diagnostics were reviewed and interpreted by me:: lab results Lab and/or radiology exams considered but not ordered:: And Interpretation Summary: See above Medications / Prescriptions Medications or Prescriptions considered but not ordered:: None Medication administrations:: None Consultations Consultation(s) initiated? (list below): No Diagnosis Differential diagnosis anxiety: hyperventilation, panic disorder and acute anxiety Most likely diagnosis given after review of the tests above:: anxiety Admission Indicated Admission indicated?: not indicated Admission Request Was there a request for admission?: No Disposition Plan Disposition Plan: Discharge (Elopement) Discharge Attestation Discharge Attestation: The patient was given an opportunity to ask questions and understood the discharge instructions. Discharge instructions specifically effects, indications for sooner follow up or return to the emergency department, and the expected course of current diagnosis. Patient condition: Stable Discharge Plan Plan Patient Disposition: HOME (Self Care) Prescriptions/Referrals Prescriptions/Med Rec: No Action cetirizine-pseudoephedrine [Zyrtec-D] 5-120 mg tablet extended release 12 hr 1 tab PO BID PRN (Reason: sinus symptoms) Qty: 14 0RF diphenhydramine HCl [Benadryl] 25 mg capsule 25 mg PO Q8H PRN (Reason: allergic symptoms) Qty: 30 0RF ibuprofen 600 mg tablet 600 mg PO QID PRN (Reason: pain) Qty: 20 0RF ciprofloxacin HCl [Cipro] 500 mg tablet 500 mg PO BID Qty: 14 0RF metronidazole 500 mg tablet 500 mg PO BID Qty: 14 0RF dicyclomine 20 mg tablet 20 mg PO BID Qty: 20 0RF hydroxyzine HCl 50 mg tablet 50 mg PO Q6H PRN (Reason: anxiety) Qty: 20 0RF amoxicillin-pot clavulanate 875-125 mg tablet 1 tab PO BID Qty: 14 0RF ibuprofen 600 mg tablet 600 mg PO Q8H PRN (Reason: pain) Qty: 30 0RF acetaminophen 325 mg tablet 650 mg PO TID PRN (Reason: pain) Qty: 30 0RF lidocaine [Lidoderm] 5 % adhesive patch,medicated 2 patch topical QDAY PRN (Reason: pain) Qty: 30 0RF Rx Instructions: leave on most painful area for up to 12 hrs ibuprofen 600 mg tablet 600 mg PO Q8H PRN (Reason: pain) Qty: 14 0RF tizanidine 4 mg tablet 4 mg PO BID PRN (Reason: muscle spasticity) Qty: 20 0RF acetaminophen 500 mg tablet 500 mg PO Q6H PRN (Reason: pain) Qty: 30 0RF hydroxyzine pamoate 25 mg capsule 25 mg PO BID PRN (Reason: anxiety) Qty: 10 0RF albuterol sulfate [Ventolin HFA] 90 mcg/actuation HFA aerosol inhaler 1 inh inhalation Q4H PRN (Reason: shortness of breath or wheezing) Qty: 8.5 0RF amoxicillin-pot clavulanate 875-125 mg tablet 1 tab PO BID Qty: 20 0RF lidocaine HCl [Lidocaine Viscous] 2 % solution 10 ml PO Q4H PRN (Reason: sore throat) Qty: 100 0RF ondansetron 4 mg tablet,disintegrating 4 mg PO Q8H PRN (Reason: nausea and vomiting) Qty: 10 0RF Sudafed PE Head Congestn-Pain 200-10 mg tablet 1 tab PO Q4H PRN (Reason: sinus symptoms) Qty: 20 0RF Benadryl 2 % gel 1 applic topical BID PRN (Reason: skin irritation) Qty: 103 0RF ibuprofen 600 mg tablet 600 mg PO Q6H Qty: 30 0RF omeprazole 20 mg capsule,delayed release(DR/EC) 20 mg PO BID Qty: 30 0RF ondansetron 4 mg tablet,disintegrating 4 mg PO Q8H Qty: 20 0RF albuterol sulfate [Ventolin HFA] 90 mcg/actuation HFA aerosol inhaler 2 puff inhalation Q6H PRN (Reason: shortness of breath or wheezing) Qty: 8.5 0RF albuterol sulfate 90 mcg/actuation HFA aerosol inhaler 2 puff inhalation Q6H PRN (Reason: shortness of breath or wheezing) Qty: 8.5 0RF azithromycin [Zithromax TRI-DARWIN] 500 mg tablet 500 mg PO QDAY 3 Days Qty: 3 0RF cyclobenzaprine 7.5 mg tablet 7.5 mg PO TID PRN (Reason: muscle spasm) Qty: 30 0RF hydrocodone-acetaminophen 5-325 mg tablet 1 tab PO BID MDD 10 PRN (Reason: pain) Qty: 14 0RF sumatriptan succinate [Imitrex] 25 mg tablet 25 mg PO Q2H PRN (Reason: migraine headache) Qty: 10 0RF Rx Instructions: do not exceed 8 doses per 24 hrs ondansetron 4 mg tablet,disintegrating 4 mg PO Q8H PRN (Reason: nausea and vomiting) Qty: 20 0RF ibuprofen 800 mg tablet 800 mg PO Q8H PRN (Reason: pain) Qty: 20 0RF dicyclomine 20 mg tablet 20 mg PO QID PRN (Reason: abdominal pain) Qty: 30 0RF cephalexin 500 mg capsule 500 mg PO QID Qty: 40 0RF ondansetron 4 mg tablet,disintegrating 4 mg PO Q8H PRN (Reason: nausea and vomiting) Qty: 20 0RF albuterol sulfate [Ventolin HFA] 90 mcg/actuation HFA aerosol inhaler 2 puff inhalation Q6H PRN (Reason: shortness of breath or wheezing) Qty: 8.5 0RF triamcinolone acetonide 0.025 % ointment 1 applic topical BID Qty: 15 0RF cephalexin 500 mg capsule 500 mg PO QID Qty: 28 0RF dicyclomine 20 mg tablet 20 mg PO BID Qty: 6 0RF dicyclomine 20 mg tablet 20 mg PO TID PRN (Reason: abdominal pain) Qty: 20 0RF cephalexin 500 mg capsule 500 mg PO QID Qty: 40 0RF famotidine [Pepcid] 20 mg tablet 20 mg PO BID 30 Days Qty: 60 0RF ondansetron 4 mg tablet,disintegrating 4 mg PO Q8H Qty: 20 0RF Referrals: Michael Rudolph MD [Primary Care Provider, Family Practice] - In 1 week Problem List Clinical Impression: Anxiety Patient/Caregiver Discharge Instructions Education Materials: ED Anxiety Reaction Additional Instructions: Thank you for the opportunity for serving you today. You are stable for discharged . You are advised to: Follow-up with your PCP in 1 to 2 days Return to ED for worsening of symptoms Increase oral fluids Take medication as prescribed by your PCP Print Language: Latvian Stand Alone Forms: [employer] Award Info., Patient Portal Info Letter
[2025-04-29 17:05] VITALS: PULSE 96; RESP 18; TEMP 36.9; O2SAT 97
== END 2025-04-29 17:06 | disposition home or self-care (01) ==
PROVIDERS: Emergency Provider Nurse Practitioner Family; PCP Family Medicine
DX: F41.9 Anxiety disorder, unspecified (principal)
CPT/HCPCS: 36415; 80053; 80307; 81001; 83880; 84439; 84443; 85025; 99282

== ENCOUNTER 2025-04-29 20:47 | Emergency (ER) | payer MEDICAID, SELFPAY ==
[2025-04-29 20:48] VITALS: PULSE 87; BMI 21.9
[2025-04-29 21:33] VITALS: BP 160/106; PULSE 100; RESP 18; TEMP 36.6; O2SAT 99
--- NOTE | 2025-04-29 21:39 | PD.EDBACK ---
ED Back Injury Pain RME/HPI General Chief Complaint: Back Pain/Injury Stated Complaint: BACK PAIN Time Seen by Provider: 04/29/25 21:33 Source: patient Arrival date/time: 04/29/25 20:47 Mode of arrival: ambulatory Limitations: no limitations RME / HPI RME / HPI Narrative: Is a 39-year-old male who has been in this facility numerous times in the past few days for similar complaints. Patient is in today for complaints of generalized back pain with some burning skin concerns. Patient states symptoms came on a few hours ago and have been consistent. Patient has been seen at this facility over the past few days for a variety of concerns including anxiety and abdominal pain issues. All studies were unremarkable. Patient did arrive today hypertensive. Related Data Previous Rx's ?Medication ?Instructions ?Recorded cetirizine 5 mg-pseudoephedrine ER 1 tab PO BID PRN sinus symptoms 08/30/21 120 mg tablet,extended #14 tabs release,12hr (Zyrtec-D) diphenhydramine HCl 25 mg capsule 25 mg PO Q8H PRN allergic symptoms 09/23/22 (Benadryl) #30 caps ibuprofen 600 mg tablet 600 mg PO QID PRN pain #20 tabs 09/23/22 ciprofloxacin HCl 500 mg tablet 500 mg PO BID #14 tabs 11/29/22 (Cipro) dicyclomine 20 mg tablet 20 mg PO BID #20 tabs 11/29/22 metronidazole 500 mg tablet 500 mg PO BID #14 tabs 11/29/22 cyclobenzaprine 7.5 mg tablet 7.5 mg PO TID PRN muscle spasm #30 12/03/22 tabs hydrocodone 5 mg-acetaminophen 325 1 tab PO BID PRN pain #14 tabs 01/16/23 mg tablet hydroxyzine HCl 50 mg tablet 50 mg PO Q6H PRN anxiety #20 tabs 01/18/24 amoxicillin 875 mg-potassium 1 tab PO BID #14 tabs 02/07/24 clavulanate 125 mg tablet acetaminophen 325 mg tablet 650 mg (2 x 325 mg) PO TID PRN 02/11/24 pain #30 tabs ibuprofen 600 mg tablet 600 mg PO Q8H PRN pain #30 tabs 02/11/24 ibuprofen 600 mg tablet 600 mg PO Q8H PRN pain #14 tabs 02/15/24 lidocaine 5 % topical patch 2 patch topical QDAY PRN pain #30 02/15/24 (Lidoderm) ea acetaminophen 500 mg tablet 500 mg PO Q6H PRN pain #30 tabs 09/15/24 tizanidine 4 mg tablet 4 mg PO BID PRN muscle spasticity 09/15/24 #20 tabs sumatriptan succinate 25 mg tablet 25 mg PO Q2H PRN migraine headache 10/08/24 (Imitrex) #10 tabs albuterol sulfate 90 mcg/actuation 1 inh inhalation Q4H PRN shortness 11/06/24 aerosol inhaler (Ventolin HFA) of breath or wheezing #8.5 grams hydroxyzine pamoate 25 mg capsule 25 mg PO BID PRN anxiety #10 caps 11/06/24 ibuprofen 800 mg tablet 800 mg PO Q8H PRN pain #20 tabs 12/21/24 ondansetron 4 mg disintegrating 4 mg PO Q8H PRN nausea and 12/21/24 tablet vomiting #20 tabs dicyclomine 20 mg tablet 20 mg PO QID PRN abdominal pain 12/27/24 #30 tabs cephalexin 500 mg capsule 500 mg PO QID #40 caps 12/28/24 albuterol sulfate 90 mcg/actuation 2 puff inhalation Q6H PRN 01/03/25 aerosol inhaler (Ventolin HFA) shortness of breath or wheezing #8.5 grams ondansetron 4 mg disintegrating 4 mg PO Q8H PRN nausea and 01/03/25 tablet vomiting #20 tabs amoxicillin 875 mg-potassium 1 tab PO BID #20 tabs 01/16/25 clavulanate 125 mg tablet ibuprofen 200 mg-phenylephrine HCl 1 tab PO Q4H PRN sinus symptoms 01/16/25 10 mg tablet (Sudafed PE Head #20 tabs Congestion-Pain) lidocaine HCl 2 % mucosal solution 10 ml PO Q4H PRN sore throat #100 01/16/25 (Lidocaine Viscous) mL ondansetron 4 mg disintegrating 4 mg PO Q8H PRN nausea and 01/16/25 tablet vomiting #10 tabs cephalexin 500 mg capsule 500 mg PO QID #28 caps 01/18/25 triamcinolone acetonide 0.025 % 1 applic topical BID #15 grams 09/16/25 topical ointment dicyclomine 20 mg tablet 20 mg PO BID #6 tabs 01/30/25 diphenhydramine HCl 2 % topical 1 applic topical BID PRN skin 02/11/25 gel (Benadryl) irritation #103 mL ibuprofen 600 mg tablet 600 mg PO Q6H #30 tabs 03/10/25 dicyclomine 20 mg tablet 20 mg PO TID PRN abdominal pain 03/13/25 #20 tabs omeprazole 20 mg capsule,delayed 20 mg PO BID #30 caps 03/13/25 release ondansetron 4 mg disintegrating 4 mg PO Q8H #20 tabs 03/13/25 tablet albuterol sulfate 90 mcg/actuation 2 puff inhalation Q6H PRN 03/27/25 aerosol inhaler (Ventolin HFA) shortness of breath or wheezing #8.5 grams albuterol sulfate 90 mcg/actuation 2 puff inhalation Q6H PRN 04/27/25 aerosol inhaler shortness of breath or wheezing #8.5 grams azithromycin 500 mg tablet 500 mg PO QDAY 3 days #3 tabs 04/27/25 (Zithromax TRI-DARWIN) cephalexin 500 mg capsule 500 mg PO QID #40 caps 04/27/25 famotidine 20 mg tablet (Pepcid) 20 mg PO BID 30 days #60 tabs 04/27/25 ondansetron 4 mg disintegrating 4 mg PO Q8H #20 tabs 04/27/25 tablet Allergies Allergy/AdvReac Type Severity Reaction Status Date / Time No Known Allergies Allergy Verified 04/29/25 11:08 Review of Systems Review of Systems Systems Reviewed: All systems reviewed, normal except as documented Past Medical History Past Medical History NEUROLOGIC: Negative Neurological Disorders or Seizures CARDIAC: Negative Cardiac Disorders or Congestive Heart Failure RESPIRATORY: Negative Chronic Obstructive Pulmonary Disease (COPD) or Asthma GASTROINTESTINAL: Negative Gastrointestinal Disorders GENITOURINARY: Negative Genitourinary Disorders or Renal Disease MUSCULOSKELETAL: Negative Musculoskeletal Disorders ENDOCRINE: Negative Endocrine Disorders, Diabetes Mellitus Type 1 or Diabetes Mellitus Type 2 HEMATOLOGIC: Negative Blood Disorders or Sickle Cell Disease PSYCHO/SOCIAL: Positive Recreational Drug Use OTHER HISTORY: Positive Chicken Pox; Negative Hospitalization, Blood Transfusions, Blood Transfusion Reaction, Anesthesia Reactions or Cancer Social History SMOKING STATUS: Never smoker SUBSTANCE USE: methamphetamine ED Exam Narrative Physical exam: Patient appears to be in mild distress due to back pain concerns. General Limitations: Present no limitations General appearance: Present alert and in distress (Mild distress due to some back pain issues.) Head Head exam: Present atraumatic Eye Eye exam: Present normal appearance, PERRL and EOMI ENT ENT exam: Present normal exam, normal oropharynx and mucous membranes moist Neck Neck exam: Present normal inspection, full ROM and trachea midline Chest Chest inspection: Present normal inspection and symmetric chest wall rise Respiratory Respiratory exam: Present normal lung sounds bilaterally Cardiovascular Cardiovascular exam: Present regular rate, normal rhythm and normal heart sounds Abdominal Exam Abdominal exam: Present soft and normal bowel sounds Extremities Exam Extremities exam: Present normal inspection and full ROM Back Exam Back exam: Present other (Patient complains of diffuse and nonspecific tenderness to palpation throughout lower back issues from the middle thoracic region to the lumbar region. No signs of trauma. No step-offs noted.) Neurological Exam Neurological exam: Present alert, oriented X3 and CN II-XII intact Psychiatric Psychiatric exam: Present normal affect and normal mood Skin Skin exam: Present warm, dry, intact, normal color and other (Patient complains of a burning sensation throughout his back. Physical evaluation was unremarkable. No erythema or edema. No signs of trauma.) Course Quality Measures none Orders Category Date Time Status Ketorolac Inj [Toradol Inj] Med 04/29/25 21:36 Discontinued 30 mg IM X1 ONE cloNIDine HCL [Catapres] Med 04/29/25 21:38 Once 0.1 mg PO X1 ONE dexAMETHasone INJ [Decadron Inj] Med 04/29/25 21:36 Discontinued 10 mg IM X1 ONE As noted above Vital Signs Vital signs: Vital Signs Temperature 97.8 F 04/29/25 21:33 Pulse Rate 100 04/29/25 21:33 Respiratory Rate 18 04/29/25 21:33 Blood Pressure 160/106 H 04/29/25 21:33 Pulse Oximetry (%) 99 04/29/25 21:33 Oxygen Delivery Method Room Air 04/29/25 21:33 As noted above Back Pain / Injury MDM Narrative MDM Narrative:: Spent time discussing the concerns of the patient. Advised that he needs to follow-up with primary care provider for long-term management of what appears to be chronic pain concerns and other possible autoimmune issues. Patient's blood pressure was returning to acceptable zone at time of discharge. Patient data External records reviewed:: [facility] previous records Clinical information provided by:: patient Social determinants that could affect healthcare access:: none Patient has the following chronic illnesses:: None How is presenting disease/condition affected by chronic disease/condition?: no chronic disease Evaluation data The following diagnostics were reviewed and interpreted by me:: other (specify) Lab and/or radiology exams considered but not ordered:: None Interpretation Summary: None Medications / Prescriptions Medications or Prescriptions considered but not ordered:: None Medication administrations:: Medication Administration History Clonidine (Clonidine Hcl 0.1 Mg Tablet) 0.1 mg PO X1 ONE Stop: 04/29/25 21:39 Discontinued Medications Dexamethasone Sodium Phosphate (Dexamethasone Sod Phos Inj 10 Mg/Ml Vial) 10 mg IM X1 ONE Stop: 04/29/25 21:37 Ketorolac Tromethamine (Ketorolac Inj 30 Mg/Ml Vial) 30 mg IM X1 ONE Stop: 04/29/25 21:37 As noted above Consultations Consultation(s) initiated? (list below): No Diagnosis Differential diagnosis back pain/injury: other (Back pain, dry skin) Most likely diagnosis given after review of the tests above:: Back pain, dry skin Admission Indicated Admission indicated?: not indicated Explain why admission is indicated or not indicated:: Unwarranted Admission Request Was there a request for admission?: No Disposition Plan Disposition Plan: Discharge Discharge Attestation Discharge Attestation: The patient and all family members were given an opportunity to ask questions and understood the discharge instructions. Discharge instructions specifically effects, indications for sooner follow up or return to the emergency department, and the expected course of current diagnosis. Patient condition: Stable Discharge Plan Plan Patient Disposition: HOME (Self Care) Prescriptions/Referrals Prescriptions/Med Rec: No Action cetirizine-pseudoephedrine [Zyrtec-D] 5-120 mg tablet extended release 12 hr 1 tab PO BID PRN (Reason: sinus symptoms) Qty: 14 0RF diphenhydramine HCl [Benadryl] 25 mg capsule 25 mg PO Q8H PRN (Reason: allergic symptoms) Qty: 30 0RF ibuprofen 600 mg tablet 600 mg PO QID PRN (Reason: pain) Qty: 20 0RF ciprofloxacin HCl [Cipro] 500 mg tablet 500 mg PO BID Qty: 14 0RF metronidazole 500 mg tablet 500 mg PO BID Qty: 14 0RF dicyclomine 20 mg tablet 20 mg PO BID Qty: 20 0RF hydroxyzine HCl 50 mg tablet 50 mg PO Q6H PRN (Reason: anxiety) Qty: 20 0RF amoxicillin-pot clavulanate 875-125 mg tablet 1 tab PO BID Qty: 14 0RF ibuprofen 600 mg tablet 600 mg PO Q8H PRN (Reason: pain) Qty: 30 0RF acetaminophen 325 mg tablet 650 mg PO TID PRN (Reason: pain) Qty: 30 0RF lidocaine [Lidoderm] 5 % adhesive patch,medicated 2 patch topical QDAY PRN (Reason: pain) Qty: 30 0RF Rx Instructions: leave on most painful area for up to 12 hrs ibuprofen 600 mg tablet 600 mg PO Q8H PRN (Reason: pain) Qty: 14 0RF tizanidine 4 mg tablet 4 mg PO BID PRN (Reason: muscle spasticity) Qty: 20 0RF acetaminophen 500 mg tablet 500 mg PO Q6H PRN (Reason: pain) Qty: 30 0RF hydroxyzine pamoate 25 mg capsule 25 mg PO BID PRN (Reason: anxiety) Qty: 10 0RF albuterol sulfate [Ventolin HFA] 90 mcg/actuation HFA aerosol inhaler 1 inh inhalation Q4H PRN (Reason: shortness of breath or wheezing) Qty: 8.5 0RF amoxicillin-pot clavulanate 875-125 mg tablet 1 tab PO BID Qty: 20 0RF lidocaine HCl [Lidocaine Viscous] 2 % solution 10 ml PO Q4H PRN (Reason: sore throat) Qty: 100 0RF ondansetron 4 mg tablet,disintegrating 4 mg PO Q8H PRN (Reason: nausea and vomiting) Qty: 10 0RF Sudafed PE Head Congestn-Pain 200-10 mg tablet 1 tab PO Q4H PRN (Reason: sinus symptoms) Qty: 20 0RF Benadryl 2 % gel 1 applic topical BID PRN (Reason: skin irritation) Qty: 103 0RF ibuprofen 600 mg tablet 600 mg PO Q6H Qty: 30 0RF omeprazole 20 mg capsule,delayed release(DR/EC) 20 mg PO BID Qty: 30 0RF ondansetron 4 mg tablet,disintegrating 4 mg PO Q8H Qty: 20 0RF albuterol sulfate [Ventolin HFA] 90 mcg/actuation HFA aerosol inhaler 2 puff inhalation Q6H PRN (Reason: shortness of breath or wheezing) Qty: 8.5 0RF albuterol sulfate 90 mcg/actuation HFA aerosol inhaler 2 puff inhalation Q6H PRN (Reason: shortness of breath or wheezing) Qty: 8.5 0RF azithromycin [Zithromax TRI-DARWIN] 500 mg tablet 500 mg PO QDAY 3 Days Qty: 3 0RF cyclobenzaprine 7.5 mg tablet 7.5 mg PO TID PRN (Reason: muscle spasm) Qty: 30 0RF hydrocodone-acetaminophen 5-325 mg tablet 1 tab PO BID MDD 10 PRN (Reason: pain) Qty: 14 0RF sumatriptan succinate [Imitrex] 25 mg tablet 25 mg PO Q2H PRN (Reason: migraine headache) Qty: 10 0RF Rx Instructions: do not exceed 8 doses per 24 hrs ondansetron 4 mg tablet,disintegrating 4 mg PO Q8H PRN (Reason: nausea and vomiting) Qty: 20 0RF ibuprofen 800 mg tablet 800 mg PO Q8H PRN (Reason: pain) Qty: 20 0RF dicyclomine 20 mg tablet 20 mg PO QID PRN (Reason: abdominal pain) Qty: 30 0RF cephalexin 500 mg capsule 500 mg PO QID Qty: 40 0RF ondansetron 4 mg tablet,disintegrating 4 mg PO Q8H PRN (Reason: nausea and vomiting) Qty: 20 0RF albuterol sulfate [Ventolin HFA] 90 mcg/actuation HFA aerosol inhaler 2 puff inhalation Q6H PRN (Reason: shortness of breath or wheezing) Qty: 8.5 0RF triamcinolone acetonide 0.025 % ointment 1 applic topical BID Qty: 15 0RF cephalexin 500 mg capsule 500 mg PO QID Qty: 28 0RF dicyclomine 20 mg tablet 20 mg PO BID Qty: 6 0RF dicyclomine 20 mg tablet 20 mg PO TID PRN (Reason: abdominal pain) Qty: 20 0RF cephalexin 500 mg capsule 500 mg PO QID Qty: 40 0RF famotidine [Pepcid] 20 mg tablet 20 mg PO BID 30 Days Qty: 60 0RF ondansetron 4 mg tablet,disintegrating 4 mg PO Q8H Qty: 20 0RF Problem List Clinical Impression: Back pain Patient/Caregiver Discharge Instructions Education Materials: Relieving Back Pain Additional Instructions: Advise utilizing Tylenol and/or Motrin as needed for pain relief. Patient should utilize a good moisturizing agent for his body moisturizing needs Print Language: [place] Stand Alone Forms: [employer] Info., Patient Portal Info Letter
[2025-04-29 21:52] VITALS: TEMP 36.7
[2025-04-29] MEDS: KETOROLAC INJ 30 MG/ML VIAL IM (21:52)
[2025-04-29 21:53] VITALS: BP 132/82; PULSE 78
== END 2025-04-29 22:22 | disposition home or self-care (01) ==
LOC: SERX 21:59
PROVIDERS: Emergency Provider Emergency Medicine
DX: M54.9 Dorsalgia, unspecified (principal)
CPT/HCPCS: 96372; 99282; J1100; J1885; A9270

== ENCOUNTER 2025-04-29 23:22 | Emergency (ER) | payer MEDICAID, SELFPAY ==
[2025-04-29 23:22] VITALS: BMI 22.7
--- NOTE | 2025-04-30 00:23 | PC.NURSE ---
PT UP AND DOWN COMING UP TO TRIAGE DESK. OTHER PATIENTS IN LOBBY HAVE COME TO SECURITY STATES PT IS DISRUPTING THEM. PT HAS BEEN INSTRUCTED TO WAIT OUTSIDE
--- NOTE | 2025-04-30 00:44 | PC.NURSE ---
PT GIVEN A BLANKET WE WAITS OUTSIDE FOR BEING DISRUPTIVE TO OTHER PTS
[2025-04-30 01:26] VITALS: BP 151/100; PULSE 111; RESP 20; TEMP 36.9; O2SAT 98
--- NOTE | 2025-04-30 01:31 | PD.EDRME ---
Rapid Medical Screening Exam RME Arrival date/time: 04/29/25 23:22 39M with history of drug/psych presents to ED with wanting CT scan for ab pain. This is his 4th visit here today. Chief Complaint: Abdominal Pain Vital signs: Vital Signs Temperature 98.4 F 04/30/25 01:26 Pulse Rate 111 H 04/30/25 01:26 Respiratory Rate 20 04/30/25 01:26 Blood Pressure 151/100 H 04/30/25 01:26 Pulse Oximetry (%) 98 04/30/25 01:26 Oxygen Delivery Method Room Air 04/30/25 01:26 Exam: Anxious. Clinical Impression: ab pain vs drug use vs psych
--- NOTE | 2025-04-30 04:19 | PD.EDABDPN ---
ED Abdominal Pain RME/HPI General Chief Complaint: Abdominal Pain Stated complaint: ABD PAIN Time seen by provider: 04/30/25 01:32 Arrival date/time: 04/29/25 23:22 RME / HPI RME / HPI narrative: 04/29/25 23:22 39M with history of drug/psych presents to ED with wanting CT scan for ab pain. This is his 4th visit here today. Dr. Rodriguez?s Main ED Evaluation: 39yo male who is well known to the ED with various complaints and also has a long-standing history of methamphetamine use presenting with sinus and abdominal pain. No fever, chills, melena, or bloody stools. Related Data Previous Rx's ?Medication ?Instructions ?Recorded cetirizine 5 mg-pseudoephedrine ER 1 tab PO BID PRN sinus symptoms 08/30/21 120 mg tablet,extended #14 tabs release,12hr (Zyrtec-D) diphenhydramine HCl 25 mg capsule 25 mg PO Q8H PRN allergic symptoms 09/23/22 (Benadryl) #30 caps ibuprofen 600 mg tablet 600 mg PO QID PRN pain #20 tabs 09/23/22 ciprofloxacin HCl 500 mg tablet 500 mg PO BID #14 tabs 11/29/22 (Cipro) dicyclomine 20 mg tablet 20 mg PO BID #20 tabs 11/29/22 metronidazole 500 mg tablet 500 mg PO BID #14 tabs 11/29/22 cyclobenzaprine 7.5 mg tablet 7.5 mg PO TID PRN muscle spasm #30 12/03/22 tabs hydrocodone 5 mg-acetaminophen 325 1 tab PO BID PRN pain #14 tabs 01/16/23 mg tablet hydroxyzine HCl 50 mg tablet 50 mg PO Q6H PRN anxiety #20 tabs 01/18/24 amoxicillin 875 mg-potassium 1 tab PO BID #14 tabs 02/07/24 clavulanate 125 mg tablet acetaminophen 325 mg tablet 650 mg (2 x 325 mg) PO TID PRN 02/11/24 pain #30 tabs ibuprofen 600 mg tablet 600 mg PO Q8H PRN pain #30 tabs 02/11/24 ibuprofen 600 mg tablet 600 mg PO Q8H PRN pain #14 tabs 02/15/24 lidocaine 5 % topical patch 2 patch topical QDAY PRN pain #30 02/15/24 (Lidoderm) ea acetaminophen 500 mg tablet 500 mg PO Q6H PRN pain #30 tabs 09/15/24 tizanidine 4 mg tablet 4 mg PO BID PRN muscle spasticity 09/15/24 #20 tabs sumatriptan succinate 25 mg tablet 25 mg PO Q2H PRN migraine headache 10/08/24 (Imitrex) #10 tabs albuterol sulfate 90 mcg/actuation 1 inh inhalation Q4H PRN shortness 11/06/24 aerosol inhaler (Ventolin HFA) of breath or wheezing #8.5 grams hydroxyzine pamoate 25 mg capsule 25 mg PO BID PRN anxiety #10 caps 11/06/24 ibuprofen 800 mg tablet 800 mg PO Q8H PRN pain #20 tabs 12/21/24 ondansetron 4 mg disintegrating 4 mg PO Q8H PRN nausea and 12/21/24 tablet vomiting #20 tabs dicyclomine 20 mg tablet 20 mg PO QID PRN abdominal pain 12/27/24 #30 tabs cephalexin 500 mg capsule 500 mg PO QID #40 caps 12/28/24 albuterol sulfate 90 mcg/actuation 2 puff inhalation Q6H PRN 01/03/25 aerosol inhaler (Ventolin HFA) shortness of breath or wheezing #8.5 grams ondansetron 4 mg disintegrating 4 mg PO Q8H PRN nausea and 01/03/25 tablet vomiting #20 tabs amoxicillin 875 mg-potassium 1 tab PO BID #20 tabs 01/16/25 clavulanate 125 mg tablet ibuprofen 200 mg-phenylephrine HCl 1 tab PO Q4H PRN sinus symptoms 01/16/25 10 mg tablet (Sudafed PE Head #20 tabs Congestion-Pain) lidocaine HCl 2 % mucosal solution 10 ml PO Q4H PRN sore throat #100 01/16/25 (Lidocaine Viscous) mL ondansetron 4 mg disintegrating 4 mg PO Q8H PRN nausea and 01/16/25 tablet vomiting #10 tabs cephalexin 500 mg capsule 500 mg PO QID #28 caps 01/18/25 triamcinolone acetonide 0.025 % 1 applic topical BID #15 grams 01/18/25 topical ointment dicyclomine 20 mg tablet 20 mg PO BID #6 tabs 01/30/25 diphenhydramine HCl 2 % topical 1 applic topical BID PRN skin 02/11/25 gel (Benadryl) irritation #103 mL ibuprofen 600 mg tablet 600 mg PO Q6H #30 tabs 03/10/25 dicyclomine 20 mg tablet 20 mg PO TID PRN abdominal pain 03/13/25 #20 tabs omeprazole 20 mg capsule,delayed 20 mg PO BID #30 caps 03/13/25 release ondansetron 4 mg disintegrating 4 mg PO Q8H #20 tabs 03/13/25 tablet albuterol sulfate 90 mcg/actuation 2 puff inhalation Q6H PRN 03/27/25 aerosol inhaler (Ventolin HFA) shortness of breath or wheezing #8.5 grams albuterol sulfate 90 mcg/actuation 2 puff inhalation Q6H PRN 04/27/25 aerosol inhaler shortness of breath or wheezing #8.5 grams cephalexin 500 mg capsule 500 mg PO QID #40 caps 04/27/25 famotidine 20 mg tablet (Pepcid) 20 mg PO BID 30 days #60 tabs 04/27/25 ondansetron 4 mg disintegrating 4 mg PO Q8H #20 tabs 04/27/25 tablet hyoscyamine sulfate 0.125 mg 0.125 mg PO TID PRN cramping #10 04/30/25 tablet (Levsin) tabs Allergies Allergy/AdvReac Type Severity Reaction Status Date / Time No Known Allergies Allergy Verified 04/29/25 11:08 Review of Systems Review of Systems Systems Reviewed: All systems reviewed, normal except as documented Past Medical History Past Medical History NEUROLOGIC: Negative Neurological Disorders or Seizures CARDIAC: Negative Cardiac Disorders or Congestive Heart Failure RESPIRATORY: Negative Chronic Obstructive Pulmonary Disease (COPD) or Asthma GASTROINTESTINAL: Negative Gastrointestinal Disorders GENITOURINARY: Negative Genitourinary Disorders or Renal Disease MUSCULOSKELETAL: Negative Musculoskeletal Disorders ENDOCRINE: Negative Endocrine Disorders, Diabetes Mellitus Type 1 or Diabetes Mellitus Type 2 HEMATOLOGIC: Negative Blood Disorders or Sickle Cell Disease PSYCHO/SOCIAL: Positive Recreational Drug Use OTHER HISTORY: Positive Chicken Pox; Negative Hospitalization, Blood Transfusions, Blood Transfusion Reaction, Anesthesia Reactions or Cancer Social History SMOKING STATUS: Never smoker SUBSTANCE USE: methamphetamine ED Exam Narrative Physical exam: GENERAL APPEARANCE: alert and oriented x 4, well-developed, well-nourished, resting comfortably, no acute distress VITALS: All vitals were reviewed and the pulse ox is 98% on room air, which is normal according to my interpretation. HEENT: Normocephalic, atraumatic; pupils equal, round, reactive to light; EOMI; mucous membranes pink, moist; oropharynx clear, no maxillary sinus tenderness NECK: Supple LUNGS: CTABL; no wheezes, no rales, no rhonchi HEART: Regular rate, regular rhythm; normal S1, S2; no murmurs ABDOMEN: non distended; soft, mild RUQ tenderness, no guarding or peritoneal findings BACK: no CVA tenderness EXTREMITIES: atraumatic; no edema NEUROLOGIC: awake; alert and oriented x4; cranial nerves II-XII grossly intact; no focal sensory or motor deficits PSYCHIATRIC: appropriate mood and affect SKIN: warm, dry, normal color; no rashes Course Quality Measures none Vital Signs Vital signs: Vital Signs Temperature 98.4 F 04/30/25 01:26 Pulse Rate 111 H 04/30/25 01:26 Respiratory Rate 20 04/30/25 01:26 Blood Pressure 151/100 H 04/30/25 01:26 Pulse Oximetry (%) 98 04/30/25 01:26 Oxygen Delivery Method Room Air 04/30/25 01:26 Abdominal Pain MDM MDM Narrative MDM Narrative:: Scribe Attestation: 04/30/25 - Tyra Reza am scribing for and in the presence of Dr. Rodriguez. 39yo male who is well known to the ED with various complaints and also has a long-standing history of methamphetamine use presenting with sinus and abdominal pain. No fever, chills, melena, or bloody stools. Please see PE findings. CBC obtained from earlier visit today showed normal WBC count, Hgb 10.1, normal Plt count, slight left shift, no bandemia. Chemistries were unremarkable. Patient observed for extended period of time and remained asymptomatic. Will defer on advanced imaging at this time due to recent gallbladder US performed, which was negative. Will consider prescription for Levsin for possible biliary colic and recommend low fat diet. Patient data External records reviewed:: [facility] previous records (Per chart review, patient was seen here earlier tonight for back pain.) Clinical information provided by:: patient Social determinants that could affect healthcare access:: substance use Patient has the following chronic illnesses:: none How is presenting disease/condition affected by chronic disease/condition?: no chronic disease Evaluation data The following diagnostics were reviewed and interpreted by me:: other (specify) (none) Lab and/or radiology exams considered but not ordered:: none Interpretation Summary: none Medications / Prescriptions Medications or Prescriptions considered but not ordered:: none Medication administrations:: none Consultations Consultation(s) initiated? (list below): No Diagnosis Differential diagnosis abdominal pain: pancreatitis and other (choledocholithiasis, cholecystitis, biliary colic) Most likely diagnosis given after review of the tests above:: see clinical impression below Admission Indicated Admission indicated?: not indicated Admission Request Was there a request for admission?: No Disposition Plan Disposition Plan: Discharge Discharge Attestation Discharge Attestation: The patient and all family members were given an opportunity to ask questions and understood the discharge instructions. Discharge instructions specifically effects, indications for sooner follow up or return to the emergency department, and the expected course of current diagnosis. Patient condition: Stable Discharge Plan Plan Patient Disposition: HOME (Self Care) Discharge Disposition comment: Stable Prescriptions/Referrals Prescriptions/Med Rec: New hyoscyamine sulfate [Levsin] 0.125 mg tablet 0.125 mg PO TID PRN (Reason: cramping) Qty: 10 0RF No Action cetirizine-pseudoephedrine [Zyrtec-D] 5-120 mg tablet extended release 12 hr 1 tab PO BID PRN (Reason: sinus symptoms) Qty: 14 0RF diphenhydramine HCl [Benadryl] 25 mg capsule 25 mg PO Q8H PRN (Reason: allergic symptoms) Qty: 30 0RF ibuprofen 600 mg tablet 600 mg PO QID PRN (Reason: pain) Qty: 20 0RF ciprofloxacin HCl [Cipro] 500 mg tablet 500 mg PO BID Qty: 14 0RF metronidazole 500 mg tablet 500 mg PO BID Qty: 14 0RF dicyclomine 20 mg tablet 20 mg PO BID Qty: 20 0RF hydroxyzine HCl 50 mg tablet 50 mg PO Q6H PRN (Reason: anxiety) Qty: 20 0RF amoxicillin-pot clavulanate 875-125 mg tablet 1 tab PO BID Qty: 14 0RF ibuprofen 600 mg tablet 600 mg PO Q8H PRN (Reason: pain) Qty: 30 0RF acetaminophen 325 mg tablet 650 mg PO TID PRN (Reason: pain) Qty: 30 0RF lidocaine [Lidoderm] 5 % adhesive patch,medicated 2 patch topical QDAY PRN (Reason: pain) Qty: 30 0RF Rx Instructions: leave on most painful area for up to 12 hrs ibuprofen 600 mg tablet 600 mg PO Q8H PRN (Reason: pain) Qty: 14 0RF tizanidine 4 mg tablet 4 mg PO BID PRN (Reason: muscle spasticity) Qty: 20 0RF acetaminophen 500 mg tablet 500 mg PO Q6H PRN (Reason: pain) Qty: 30 0RF hydroxyzine pamoate 25 mg capsule 25 mg PO BID PRN (Reason: anxiety) Qty: 10 0RF albuterol sulfate [Ventolin HFA] 90 mcg/actuation HFA aerosol inhaler 1 inh inhalation Q4H PRN (Reason: shortness of breath or wheezing) Qty: 8.5 0RF amoxicillin-pot clavulanate 875-125 mg tablet 1 tab PO BID Qty: 20 0RF lidocaine HCl [Lidocaine Viscous] 2 % solution 10 ml PO Q4H PRN (Reason: sore throat) Qty: 100 0RF ondansetron 4 mg tablet,disintegrating 4 mg PO Q8H PRN (Reason: nausea and vomiting) Qty: 10 0RF Sudafed PE Head Congestn-Pain 200-10 mg tablet 1 tab PO Q4H PRN (Reason: sinus symptoms) Qty: 20 0RF Benadryl 2 % gel 1 applic topical BID PRN (Reason: skin irritation) Qty: 103 0RF ibuprofen 600 mg tablet 600 mg PO Q6H Qty: 30 0RF omeprazole 20 mg capsule,delayed release(DR/EC) 20 mg PO BID Qty: 30 0RF ondansetron 4 mg tablet,disintegrating 4 mg PO Q8H Qty: 20 0RF albuterol sulfate [Ventolin HFA] 90 mcg/actuation HFA aerosol inhaler 2 puff inhalation Q6H PRN (Reason: shortness of breath or wheezing) Qty: 8.5 0RF albuterol sulfate 90 mcg/actuation HFA aerosol inhaler 2 puff inhalation Q6H PRN (Reason: shortness of breath or wheezing) Qty: 8.5 0RF cyclobenzaprine 7.5 mg tablet 7.5 mg PO TID PRN (Reason: muscle spasm) Qty: 30 0RF hydrocodone-acetaminophen 5-325 mg tablet 1 tab PO BID MDD 10 PRN (Reason: pain) Qty: 14 0RF sumatriptan succinate [Imitrex] 25 mg tablet 25 mg PO Q2H PRN (Reason: migraine headache) Qty: 10 0RF Rx Instructions: do not exceed 8 doses per 24 hrs ondansetron 4 mg tablet,disintegrating 4 mg PO Q8H PRN (Reason: nausea and vomiting) Qty: 20 0RF ibuprofen 800 mg tablet 800 mg PO Q8H PRN (Reason: pain) Qty: 20 0RF dicyclomine 20 mg tablet 20 mg PO QID PRN (Reason: abdominal pain) Qty: 30 0RF cephalexin 500 mg capsule 500 mg PO QID Qty: 40 0RF ondansetron 4 mg tablet,disintegrating 4 mg PO Q8H PRN (Reason: nausea and vomiting) Qty: 20 0RF albuterol sulfate [Ventolin HFA] 90 mcg/actuation HFA aerosol inhaler 2 puff inhalation Q6H PRN (Reason: shortness of breath or wheezing) Qty: 8.5 0RF triamcinolone acetonide 0.025 % ointment 1 applic topical BID Qty: 15 0RF cephalexin 500 mg capsule 500 mg PO QID Qty: 28 0RF dicyclomine 20 mg tablet 20 mg PO BID Qty: 6 0RF dicyclomine 20 mg tablet 20 mg PO TID PRN (Reason: abdominal pain) Qty: 20 0RF cephalexin 500 mg capsule 500 mg PO QID Qty: 40 0RF famotidine [Pepcid] 20 mg tablet 20 mg PO BID 30 Days Qty: 60 0RF ondansetron 4 mg tablet,disintegrating 4 mg PO Q8H Qty: 20 0RF Referrals: Michael Rudolph MD [Primary Care Provider, Family Practice] - In 1 week Problem List Clinical Impression: Abdominal pain, chronic, right upper quadrant Impression comment: Biliary colic/chronic abdominal pain Patient/Caregiver Discharge Instructions Diet Instructions: Low-fat diet. Medication as directed. Avoid hot spicy foods. Follow-up with primary care doctor for consideration of HIDA scan should symptoms persist. Education Materials: Abdominal Pain Additional Instructions: Low-fat diet. Medication as directed. Return for fever escalating abdominal pain persistent nausea and vomiting or worsening illness. Print Language: Maltese Stand Alone Forms: [employer] Award Info., Patient Portal Info Letter
== END 2025-04-30 05:44 | disposition home or self-care (01) ==
PROVIDERS: Emergency Provider Emergency Medicine; PCP Family Medicine
DX: R10.9 Unspecified abdominal pain (principal); G89.29 Other chronic pain
CPT/HCPCS: 99281

== ENCOUNTER 2025-04-30 23:20 | Emergency (ER) | payer MEDICAID, SELFPAY ==
[2025-04-30 23:23] VITALS: BP 127/83; PULSE 105; RESP 16; TEMP 36.9; O2SAT 100
[2025-04-30 23:31] VITALS: PULSE 105; O2SAT 100
[2025-04-30 23:35] VITALS: BP 138/86; PULSE 100; RESP 18; TEMP 36.6; O2SAT 100
--- NOTE | 2025-05-01 00:20 | EDNOTE_ITS ---
ED Abdominal Pain RME/HPI General Chief Complaint: General Adult/Misc Complain Stated complaint: ABD PAIN Time seen by provider: 04/30/25 23:47 Arrival date/time: 04/30/25 23:20 This is a case of 39-year-old male with history of multiple visits in the emergency room gastritis polysubstance abuse anxiety came in in the emergency room due to abdominal pain today with nausea but no vomiting no diarrhea no blood in stool patient was seen here yesterday were full blood test was performed and noted to be normal they also did ultrasound of the gallbladder 2 days ago and is also normal Limitations: no limitations Related Data Previous Rx's ?Medication ?Instructions ?Recorded cetirizine 5 mg-pseudoephedrine ER 1 tab PO BID PRN si nus symptoms 08/30/21 120 mg tablet,extended #14 tabs release,12hr (Zyrtec-D) diphenhydramine HCl 25 mg capsule 25 mg PO Q8H PRN all ergic symptoms 09/23/22 (Benadryl) #30 caps ibuprofen 600 mg tablet 600 mg PO QID PRN pain #20 t abs 09/23/22 ciprofloxacin HCl 500 mg tablet 500 mg PO BID #14 tabs 11/29/22 (Cipro) dicyclomine 20 mg tablet 20 mg PO BID #20 tabs metronidazole 500 mg tablet 500 mg PO BID #14 tabs cyclobenzaprine 7.5 mg tablet 7.5 mg PO TID PRN muscle spasm #30 12/03/22 tabs hydrocodone 5 mg-acetaminophen 325 1 tab PO BID PRN pa in #14 tabs 01/16/23 mg tablet hydroxyzine HCl 50 mg tablet 50 mg PO Q6H PRN anxiety #20 tabs 01/18/24 amoxicillin 875 mg-potassium 1 tab PO BID #14 tabs 09/25 clavulanate 125 mg tablet acetaminophen 325 mg tablet 650 mg (2 x 325 mg) PO TID PRN 02/11/24 pain #30 tabs ibuprofen 600 mg tablet 600 mg PO Q8H PRN pain #30 t abs 02/11/24 ibuprofen 600 mg tablet 600 mg PO Q8H PRN pain #14 t abs 02/15/24 lidocaine 5 % topical patch 2 patch topical QDAY PRN p ain #30 02/15/24 (Lidoderm) ea acetaminophen 500 mg tablet 500 mg PO Q6H PRN pain #30 tabs 09/15/24 tizanidine 4 mg tablet 4 mg PO BID PRN muscle spast icity 09/15/24 #20 tabs sumatriptan succinate 25 mg tablet 25 mg PO Q2H PRN mi graine headache 10/08/24 (Imitrex) #10 tabs albuterol sulfate 90 mcg/actuation 1 inh inhalation Q4 H PRN shortness 11/06/24 aerosol inhaler (Ventolin HFA) of breath or wheezing # 8.5 grams hydroxyzine pamoate 25 mg capsule 25 mg PO BID PRN anx iety #10 caps 11/06/24 ibuprofen 800 mg tablet 800 mg PO Q8H PRN pain #20 t abs 12/21/24 ondansetron 4 mg disintegrating 4 mg PO Q8H PRN nausea and 12/21/24 tablet vomiting #20 tabs dicyclomine 20 mg tablet 20 mg PO QID PRN abdominal p ain 12/27/24 #30 tabs cephalexin 500 mg capsule 500 mg PO QID #40 caps 12/28 albuterol sulfate 90 mcg/actuation 2 puff inhalation Q 6H PRN 01/03/25 aerosol inhaler (Ventolin HFA) shortness of breath or wheezing #8.5 grams ondansetron 4 mg disintegrating 4 mg PO Q8H PRN nausea and 01/03/25 tablet vomiting #20 tabs amoxicillin 875 mg-potassium 1 tab PO BID #20 tabs clavulanate 125 mg tablet ibuprofen 200 mg-phenylephrine HCl 1 tab PO Q4H PRN si nus symptoms 01/16/25 10 mg tablet (Sudafed PE Head #20 tabs Congestion-Pain) lidocaine HCl 2 % mucosal solution 10 ml PO Q4H PRN so re throat #100 01/16/25 (Lidocaine Viscous) mL ondansetron 4 mg disintegrating 4 mg PO Q8H PRN nausea and 01/16/25 tablet vomiting #10 tabs cephalexin 500 mg capsule 500 mg PO QID #28 caps 01/18 triamcinolone acetonide 0.025 % 1 applic topical BID # 15 grams 01/18/25 topical ointment dicyclomine 20 mg tablet 20 mg PO BID #6 tabs 5 diphenhydramine HCl 2 % topical 1 applic topical BID P RN skin 02/11/25 gel (Benadryl) irritation #103 mL ibuprofen 600 mg tablet 600 mg PO Q6H #30 tabs 03/10 dicyclomine 20 mg tablet 20 mg PO TID PRN abdominal p ain 03/13/25 #20 tabs omeprazole 20 mg capsule,delayed 20 mg PO BID #30 caps 03/13/25 release ondansetron 4 mg disintegrating 4 mg PO Q8H #20 tabs 1 05/13/24 tablet albuterol sulfate 90 mcg/actuation 2 puff inhalation Q 6H PRN 03/27/25 aerosol inhaler (Ventolin HFA) shortness of breath or wheezing #8.5 grams albuterol sulfate 90 mcg/actuation 2 puff inhalation Q 6H PRN 04/27/25 aerosol inhaler shortness of breath or wheez ing #8.5 grams cephalexin 500 mg capsule 500 mg PO QID #40 caps 04/27 famotidine 20 mg tablet (Pepcid) 20 mg PO BID 30 days #60 tabs 04/27/25 ondansetron 4 mg disintegrating 4 mg PO Q8H #20 tabs 1 06/28/24 tablet hyoscyamine sulfate 0.125 mg 0.125 mg PO TID PRN cram ping #10 04/30/25 tablet (Levsin) tabs dicyclomine 20 mg tablet 20 mg PO TID PRN abdominal p ain 05/01/25 #20 tabs Allergies Allergy/AdvReac Type Severity Reaction Status Date / Time No Known Allergies Allergy Verified 04/30/25 23:30 Review of Systems Review of Systems Systems Reviewed: All systems reviewed, normal except as documented Past Medical History Past Medical History NEUROLOGIC: Negative Neurological Disorders or Seizures CARDIAC: Negative Cardiac Disorders or Congestive Heart Failure RESPIRATORY: Negative Chronic Obstructive Pulmonary Disease (COPD) or Asthma GASTROINTESTINAL: Negative Gastrointestinal Disorders GENITOURINARY: Negative Genitourinary Disorders or Renal Disease MUSCULOSKELETAL: Negative Musculoskeletal Disorders ENDOCRINE: Negative Endocrine Disorders, Diabetes Mellitus Type 1 or Diabetes Mellitus Type 2 HEMATOLOGIC: Negative Blood Disorders or Sickle Cell Disease PSYCHO/SOCIAL: Positive Recreational Drug Use OTHER HISTORY: Positive Chicken Pox; Negative Hospitalization, Blood Transfusions, Blood Transfusion Reaction, A nesthesia Reactions or Cancer Social History SMOKING STATUS: Never smoker SUBSTANCE USE: methamphetamine ED Exam General Limitations: Present no limitations General appearance: Present alert, in no apparent distress and other (Patient is awake alert oriented not in distress nontoxic looking well-hydrated well- nourished) Head Head exam: Present atraumatic Eye Eye exam: Present normal appearance, PERRL and EOMI ENT ENT exam: Present normal exam, normal oropharynx and mucous membranes moist Neck Neck exam: Present normal inspection, full ROM and trachea midline Chest Chest inspection: Present normal inspection and symmetric chest wall rise Respiratory Respiratory exam: Present normal lung sounds bilaterally; Absent respiratory distress, wheezes, stridor or prolonged expiratory phase Cardiovascular Cardiovascular exam: Present regular rate, normal rhythm and normal heart sounds; Absent bradycardia, tachycardia, irregular rhythm, systolic murmur or diastolic murmur Abdominal Exam Abdominal exam: Present soft and normal bowel sounds; Absent distention, tenderness, guarding, rebound, rigidity, hyperactive bowel sounds, hypoactive bowel sounds, organomegaly, psoas sign, obturator sign, Warner's sign, Rovsing's sign, tenderness at McBurney's Point or hernia Extremities Exam Extremities exam: Present normal inspection and full ROM Back Exam Back exam: Present normal inspection and full ROM; Absent tenderness, CVA tenderness (R), CVA tenderness (L), muscle spasm, paraspinal tenderness, rashes, sciatic notch tenderness (R), sciatic notch tenderness (L), straight leg raise (R) or straight leg raise (L) Neurological Exam Neurological exam: Present alert, oriented X3, CN II-XII intact, normal gait and reflexes normal; Absent motor sensory deficit Psychiatric Psychiatric exam: Present normal affect and normal mood Skin Skin exam: Present warm, dry, intact, normal color and other (Excellent skin turgor) Course Quality Measures none Orders Category Date Time Status Dicyclomine Inj [Bentyl Inj] Med 05/01/25 00:17 Discontinued 10 mg IM X1 ONE Ondansetron Odt [Zofran Odt] Med 05/01/25 00:17 Discontinued 4 mg PO X1 ONE Vital Signs Vital signs: Vital Signs Temperature 98.4 F 04/30/25 23:23 Pulse Rate 105 H 04/30/25 23:23 Respiratory Rate 16 04/30/25 23:23 Blood Pressure 127/83 04/30/25 23:23 Pulse Oximetry (%) 100 04/30/25 23:23 Oxygen Delivery Method Room Air 04/30/25 23:23 Sitting saturation is 100% in room air normal Abdominal Pain MDM MDM Narrative MDM Narrative:: This is a case of 39-year-old male with history of multiple visits in the emergency room gastritis polysubstance abuse anxiety came in in the emergency room due to abdominal pain today with nausea but no vomiting no diarrhea no blood in stool patient was seen here yesterday were full blood test was performed and noted to be normal they also did ultrasound of the gallbladder 2 days ago and is also normal physical examination patient is awake alert oriented not in distress nontoxic looking well-hydrated well-nourished vital signs stable BP stable not tachycardic not tachypneic afebrile and nonhypoxic abdominal exam is benign nonsurgical no guarding no rebound no rigidity normal active bowel sounds in all quadrants negative psoas negative straight or negative Rovsing's negative McBurney's negative Warner sign negative CVA tenderness bladder is nondistended nontender based on my physical examination which is normal and history there is no indication to perform any imaging or any blood test since the patient already had multiple blood test and imaging I will not order anything since my physical exam were normal patient was given Bentyl and Zofran which improved and resolve the pain patient will follow-up with PCP to be referred [facility] for chronic abdominal pain and for any worsening symptoms or any emergent concern return precaution in the ER is advised at the time of exam no signs and symptoms sepsis dehydration hypoxia nor acute abdomen Patient was discharged with comfortable condition walking with stable gait. Patient verbalized no further complains explained diagnosis and answered patient question. Patient is comfortable with the proposed management plan including the need to follow up with his/her primary care physician and any specialist if ap plicable Discussed patient for any urgent condition or worsening sx, He/She needed to go to emergency room immediately or call 911. Patient acknowledge the responsibility to follow up as instructed and to monitor her/his symptoms. For any persistence of the symptoms for more than 3-5 days return precaution advised. Discussed the result of the test and was given printed discharge instruction Patient data External records reviewed:: [facility] previous records Clinical information provided by:: patient Social determinants that could affect healthcare access:: none Patient has the following chronic illnesses:: None How is presenting disease/condition affected by chronic disease/condition?: no chronic disease Evaluation data The following diagnostics were reviewed and interpreted by me:: other (specify) Lab and/or radiology exams considered but not ordered:: None Interpretation Summary: None Medications / Prescriptions Medications or Prescriptions considered but not ordered:: Given Medication administrations:: Medication Administration History Discontinued Medications Dicyclomine HCl (Dicyclomine Inj 10 Mg/Ml 2ml Vial) 10 mg IM X1 ONE Stop: 05/01/25 00:18 Ondansetron HCl (Ondansetron Odt 4 Mg Tabrap) 4 mg PO X1 ONE; Protocol Stop: 05/01/25 00:18 Given Consultations Consultation(s) initiated? (list below): No Diagnosis Differential diagnosis abdominal pain: abdominal pain Most likely diagnosis given after review of the tests above:: Abdominal pain Admission Indicated Admission indicated?: not indicated Explain why admission is indicated or not indicated:: Not indicated Admission Request Was there a request for admission?: No Admission Attestation Admission request attestation: Not indicated Disposition Plan Disposition Plan: Discharge Discharge Attestation Discharge Attestation: The patient and all family members were given an opportunity to ask questions and understood the discharge instructions. Discharge instructions specifically effects, indications for sooner follow up or return to the emergency department, and the expected course of current diagnosis. Patient condition: Stable Discharge Plan Plan Patient Disposition: HOME (Self Care) Patient condition on transfer: Stable Prescriptions/Referrals Prescriptions/Med Rec: New dicyclomine 20 mg tablet 20 mg PO TID PRN (Reason: abdominal pain) Qty: 20 0RF No Action cetirizine-pseudoephedrine [Zyrtec-D] 5-120 mg tablet extended release 12 hr 1 tab PO BID PRN (Reason: sinus symptoms) Qty: 14 0RF diphenhydramine HCl [Benadryl] 25 mg capsule 25 mg PO Q8H PRN (Reason: allergic symptoms) Qty: 30 0RF ibuprofen 600 mg tablet 600 mg PO QID PRN (Reason: pain) Qty: 20 0RF ciprofloxacin HCl [Cipro] 500 mg tablet 500 mg PO BID Qty: 14 0RF metronidazole 500 mg tablet 500 mg PO BID Qty: 14 0RF dicyclomine 20 mg tablet 20 mg PO BID Qty: 20 0RF hydroxyzine HCl 50 mg tablet 50 mg PO Q6H PRN (Reason: anxiety) Qty: 20 0RF amoxicillin-pot clavulanate 875-125 mg tablet 1 tab PO BID Qty: 14 0RF ibuprofen 600 mg tablet 600 mg PO Q8H PRN (Reason: pain) Qty: 30 0RF acetaminophen 325 mg tablet 650 mg PO TID PRN (Reason: pain) Qty: 30 0RF lidocaine [Lidoderm] 5 % adhesive patch,medicated 2 patch topical QDAY PRN (Reason: pain) Qty: 30 0RF Rx Instructions: leave on most painful area for up to 12 hrs ibuprofen 600 mg tablet 600 mg PO Q8H PRN (Reason: pain) Qty: 14 0RF tizanidine 4 mg tablet 4 mg PO BID PRN (Reason: muscle spasticity) Qty: 20 0RF acetaminophen 500 mg tablet 500 mg PO Q6H PRN (Reason: pain) Qty: 30 0RF hydroxyzine pamoate 25 mg capsule 25 mg PO BID PRN (Reason: anxiety) Qty: 10 0RF albuterol sulfate [Ventolin HFA] 90 mcg/actuation HFA aerosol inhaler 1 inh inhalation Q4H PRN (Reason: shortness of breath or wheezing) Qty: 8.5 0RF amoxicillin-pot clavulanate 875-125 mg tablet 1 tab PO BID Qty: 20 0RF lidocaine HCl [Lidocaine Viscous] 2 % solution 10 ml PO Q4H PRN (Reason: sore throat) Qty: 100 0RF ondansetron 4 mg tablet,disintegrating 4 mg PO Q8H PRN (Reason: nausea and vomiting) Qty: 10 0RF Sudafed PE Head Congestn-Pain 200-10 mg tablet 1 tab PO Q4H PRN (Reason: sinus symptoms) Qty: 20 0RF Benadryl 2 % gel 1 applic topical BID PRN (Reason: skin irritation) Qty: 103 0RF ibuprofen 600 mg tablet 600 mg PO Q6H Qty: 30 0RF omeprazole 20 mg capsule,delayed release(DR/EC) 20 mg PO BID Qty: 30 0RF ondansetron 4 mg tablet,disintegrating 4 mg PO Q8H Qty: 20 0RF albuterol sulfate [Ventolin HFA] 90 mcg/actuation HFA aerosol inhaler 2 puff inhalation Q6H PRN (Reason: shortness of breath or wheezing) Qty: 8.5 0RF albuterol sulfate 90 mcg/actuation HFA aerosol inhaler 2 puff inhalation Q6H PRN (Reason: shortness of breath or wheezing) Qty: 8.5 0RF hyoscyamine sulfate [Levsin] 0.125 mg tablet 0.125 mg PO TID PRN (Reason: cramping) Qty: 10 0RF cyclobenzaprine 7.5 mg tablet 7.5 mg PO TID PRN (Reason: muscle spasm) Qty: 30 0RF hydrocodone-acetaminophen 5-325 mg tablet 1 tab PO BID MDD 10 PRN (Reason: pain) Qty: 14 0RF sumatriptan succinate [Imitrex] 25 mg tablet 25 mg PO Q2H PRN (Reason: migraine headache) Qty: 10 0RF Rx Instructions: do not exceed 8 doses per 24 hrs ondansetron 4 mg tablet,disintegrating 4 mg PO Q8H PRN (Reason: nausea and vomiting) Qty: 20 0RF ibuprofen 800 mg tablet 800 mg PO Q8H PRN (Reason: pain) Qty: 20 0RF dicyclomine 20 mg tablet 20 mg PO QID PRN (Reason: abdominal pain) Qty: 30 0RF cephalexin 500 mg capsule 500 mg PO QID Qty: 40 0RF ondansetron 4 mg tablet,disintegrating 4 mg PO Q8H PRN (Reason: nausea and vomiting) Qty: 20 0RF albuterol sulfate [Ventolin HFA] 90 mcg/actuation HFA aerosol inhaler 2 puff inhalation Q6H PRN (Reason: shortness of breath or wheezing) Qty: 8.5 0RF triamcinolone acetonide 0.025 % ointment 1 applic topical BID Qty: 15 0RF cephalexin 500 mg capsule 500 mg PO QID Qty: 28 0RF dicyclomine 20 mg tablet 20 mg PO BID Qty: 6 0RF dicyclomine 20 mg tablet 20 mg PO TID PRN (Reason: abdominal pain) Qty: 20 0RF cephalexin 500 mg capsule 500 mg PO QID Qty: 40 0RF famotidine [Pepcid] 20 mg tablet 20 mg PO BID 30 Days Qty: 60 0RF ondansetron 4 mg tablet,disintegrating 4 mg PO Q8H Qty: 20 0RF Problem List Clinical Impression: Abdominal pain Patient/Caregiver Discharge Instructions Education Materials: Abdominal Pain Additional Instructions: Follow-up with your primary care physician in 2 days for reevaluation and to be referred to [facility] for chronic abdominal pain recurrence persistent worsening symptoms or any emergent concern call 911 or go to the nearest emergency room take your medication as directed keep hydrated Print Language: Slovak Stand Alone Forms: Selin Award Info., Patient Portal Info Letter PA/[employer] Supervising Physician PA/[employer] Supervising Physician: Dr. Bloom
[2025-05-01] MEDS: ONDANSETRON ODT 4 MG TABRAP PO (00:31)
[2025-05-01] MEDS: DICYCLOMINE INJ 10 MG/ML 2ML VIAL IM (00:31)
== END 2025-05-01 00:38 | disposition home or self-care (01) ==
LOC: SERX 05-01 00:28
PROVIDERS: Emergency Provider Emergency Medicine; PCP Family Medicine
DX: R10.9 Unspecified abdominal pain (principal); R11.2 Nausea with vomiting, unspecified
CPT/HCPCS: 96372; 99282; J0500; Q0162